=== PATIENT | male | born 1955 | race Caucasian/White ===

== ENCOUNTER 2019-11-15 05:50 | Day surgery (SDC) | payer MEDICARE, OTHER, SELFPAY ==
[2019-11-14 09:37] VITALS: BMI 25.0
--- NOTE | 2019-11-15 | SCC_ITS ---
Procedure Done: Placement of PowerPort in the left subclavian vein 36.3 seconds of fluoroscopic guidance, for a cumulative dose of 5.96 mGy, was provided to Dr. Altamirano by the radiology department. C-arm images of the chest were saved for the patient's permanent record. [facility]
--- NOTE | 2019-11-15 | SC_ITS ---
WS: [id number] OR Port-A-Cath insertion, 11/15/2019 Clinical Data: MINESH CATH Comparison: None. Fluoroscopy time: 36.3 seconds Findings: Left Port-A-Cath was inserted in the operating room. SC/C-arm FL for CVA [id number] Impression: Left Port-A-Cath insertion.
[2019-11-15 06:17] VITALS: BP 129/72; PULSE 73; RESP 18; TEMP 36.4
--- NOTE | 2019-11-15 06:44 | ANES.PREANES ---
Pre-Anesthetic Assessment Pre-Anesthetic Assessment: Height/Weight: Height 1.83 m Weight 83.915 kg Temp Pulse Resp BP 97.6 F 73 18 129/72 11/15/19 06:17 11/15/19 06:17 11/15/19 06:17 11/15/19 06:17 Proposed Procedure: Operation Date: 11/15/19 07:10 Proposed Procedures p Portacath Placement(Not Applicable) - Christiano Altamirano MD Last intake: Intake Last Liquid Date 11/14/19 Last Solid Date 11/14/19 Social: Social History: Tobacco Exam: Pre-Anes Outpt Exam: alert, oriented x 3, clear to auscultation bilaterally and regular rate & rhythm Airway: Submandibular: WNL Cervical ROM: WNL MP: 2 Anesthetic Plan: ASA status: III Anesthesia: Anesthesia Evaluation and MAC PFSH Anesthesia PFSH: Medical History (Updated 11/15/19 @ 06:46 by Rony Maya MD) Epigastric abdominal pain (Acute) Hyperlipidemia (Acute) Hypertension (Acute) Nocturia (Acute) Rectal carcinoma (Acute) Family History Father Diabetes Other Breast cancer Heart disease Parkinson disease Data Anesthesia Cardiac Studies: No Data to Display
--- NOTE | 2019-11-15 06:56 | ANES.PREANES ---
Pre-Anesthetic Assessment Pre-Anesthetic Assessment: Height/Weight: Height 1.83 m Weight 83.915 kg Temp Pulse Resp BP 97.6 F 73 18 129/72 11/15/19 06:17 11/15/19 06:17 11/15/19 06:17 11/15/19 06:17 Proposed Procedure: Operation Date: 11/15/19 07:10 Proposed Procedures p Portacath Placement(Not Applicable) - Christiano Altamirano MD Last intake: Intake Last Liquid Date 11/14/19 Last Solid Date 11/14/19 Social: Social History: Alcohol (occ) and Tobacco (occ cigar, previous chew, smoke quit 1 year ago) Exam: Pre-Anes Outpt Exam: alert, oriented x 3, clear to auscultation bilaterally and regular rate & rhythm Airway: Submandibular: WNL Cervical ROM: WNL MP: 1 Dentition: Other (ok) Pulmonary: Pulmonary: None reported CV/HEM: CV/HEM: HTN : : None reported Hepatic: Hepatic: None reported GI: GI: GERD (well controlled) Metabolic: Metabolic: None reported Musc/skel: Musc/skel: None reported Neuropsych: Neuropsych: None reported Anesthetic Plan: Anesthesia: MAC Risk of > 500 ml blood loss (7ml/kg in children): No PFSH Anesthesia PFSH: Medical History (Updated 11/15/19 @ 06:46 by Rony Maya MD) Epigastric abdominal pain (Acute) Hyperlipidemia (Acute) Hypertension (Acute) Nocturia (Acute) Rectal carcinoma (Acute) Family History Father Diabetes Other Breast cancer Heart disease Parkinson disease Data Anesthesia Cardiac Studies: No Data to Display
--- NOTE | 2019-11-15 07:16 | PM.HPUD ---
H&P update H&P Update: DATE OF SURGERY/PROCEDURE: 11/15/19 DATE H&P PERFORMED: 11/13/19 H&P UPDATE INFORMATION: H&P completed within last 30 days, No changes to prior documentation and H&P to be scanned into chart PREOP DIAGNOSIS: Rectal cancer PLANNED PROCEDURE: Operation Date: 11/15/19 07:10 Proposed Procedures p Portacath Placement(Not Applicable) - Christiano Altamirano MD Full H&P Perinent History: Medical/Surgical History: Medical History (Updated 11/15/19 @ 06:46 by Rony Maya MD) Epigastric abdominal pain (Acute) Hyperlipidemia (Acute) Hypertension (Acute) Nocturia (Acute) Rectal carcinoma (Acute) Family History: Family History (Updated 11/14/19 @ 09:53 by Kaila Edgar) Father Diabetes Other Breast cancer Heart disease Parkinson disease A&P Assessment and plan (1) Rectal cancer: Status: Acute Code(s): C20 - Malignant neoplasm of rectum
[2019-11-15] MEDS: ceFAZolin 1,000 MG in sodium chloride 0.9% (plus) 50 ML 100 MG IV (07:18)
[2019-11-15] MEDS: heparin,porcine 1,000 unit/mL INJ 1 mL 1000 UNIT INJECTION (07:45)
[2019-11-15] MEDS: heparin, porcine 1,000 unit/mL INJ 10 mL 10000 UNIT (07:46)
--- NOTE | 2019-11-15 07:55 | P.OP_ITS ---
Operative Report Post-Operative Note: Date of procedure: 11/15/19 Preop Diagnosis: rectal cancer Post-op diagnosis: same Procedure Done: Placement of PowerPort in the left subclavian vein Fluoroscopic guidance and interpretation for placement of catheter Pathology: none sent Surgeon: Christiano Altamirano Anesthesia: MAC Estimated blood loss (mL): 10 Condition: stable Disposition: PACU Operative Report: Procedure: The patient was taken to the Operating Room and the chest and neck bilaterally were prepped and draped in a sterile manner after the antibiotic had been administered and shoulder rolls had been placed. A total of 10 mL of 1% lidocaine with 0.5% Marcaine was infiltrated under the clavicle on the left side at the site of the planned entry into the subclavian vein. An introducer needle was then used to access the subclavian vein under the clavicle and after withdrawing blood syringe was removed and a guidewire passed under fluoroscopy into the superior vena cava. The site of the planned port was then marked on the chest and a 15 blade was used to make a 3 cm skin incision this was extended into the subcutaneous tissue using electrocautery and a subcutaneous pocket over the pectoralis fascia was created 2-0 Vicryl suture was used to suture the port to the pectoral fascia in the pocket on 3 sides. The catheter, after having been flushed with hep saline, was attached to the tunneler and a tunnel created between the port site and the subclavian vein entry site. Under fluoroscopy the dilator sheath was passed over the guidewire into the proximal superior vena cava. The inner dilator was removed and the sheath left behind and~ the catheter was introduced through the peel-away sheath with the tip in the superior vena cava. The peel-away sheath was removed. The proximal end of the catheter was cut to the right size and was attached to the port. Using a Hernandes needle the port was accessed, it withdrew blood easily and flushed easily. A final 5cc of heparin was used to flush the Mediport. The subcutaneous tissue was approximated using interrupted 3-0 Vicryl sutures and the skin at the introducer site and the port site was closed using subcuticular running 4-0 Monocryl sutures. Dermabond was applied and the patient was stable throughout the procedure. Fluoroscopic guidance and interpretation was performed for introduction of the guidewire in the right subclavian vein, passage of dilator and placement of catheter tip in the distal superior vena cava. Coding Level of Care Code Acute [employer] for Román Olmos
[2019-11-15] MEDS: lidocaine 1% INJ 20 mL INTRADERMA (08:13)
[2019-11-15 08:55] VITALS: BP 102/65; PULSE 70; RESP 18; TEMP 36.2; O2SAT 96
[2019-11-15] MEDS: sodium chloride 0.9% 1,000 ML 30 ML IV (08:57)
[2019-11-15 09:09] VITALS: BP 108/75; PULSE 66; RESP 18; O2SAT 96
== END 2019-11-15 09:06 | disposition home or self-care (01) ==
PROVIDERS: Family Provider Family Medicine; PCP Surgery; Visit Provider Surgery
PROC: (CPT 36561; principal; 2019-11-15 07:00)
DX: C20 Malignant neoplasm of rectum (principal); Z87.891 Personal history of nicotine dependence; I10 Essential (primary) hypertension; E78.5 Hyperlipidemia, unspecified; Z83.3 Family history of diabetes mellitus; Z82.49 Family history of ischemic heart disease and other diseases of the circulatory system; Z80.3 Family history of malignant neoplasm of breast
CPT/HCPCS: 36561; 77001; 99221; C1788; J0690; J1644; J2001; J3490; J7030

== ENCOUNTER 2019-11-21 08:34 | Outpatient (CLI) | payer MEDICARE, OTHER, SELFPAY ==
--- NOTE | 2019-11-21 | CT_ITS ---
ADDENDUM WS: [id number] Right peritoneal mass needle core biopsies: Adenocarcinoma consistent with patient's history of colonic primary. Notified Hollie Yates DRAWER IN at 11/27/2019 1000AM. Addendum Dictated By: Elieser Cruz MD WS: [id number] PERITONEAL BIOPSY CLINICAL INFORMATION: NEEDLE BIOPSY OF PERITONEAL MASS COMPARISON: Recent PET CT November 10, 2019 DLP: 718.15 mGy.cm TECHNIQUE: The procedure including risk, benefits, and complications were discussed with the patient who agreed to proceed. Using sterile technique, the patient was prepped and draped in the usual sterile fashion. Patient was positioned supine and CT images were obtained through the abdomen. The peripheral FDG avid peritoneal nodule in the right abdomen was selected. After 1% lidocaine using fluoroscopic guidance, a 19-gauge coaxial needle was advanced into the peritoneal mass. Approximately 40 cc of fluid was aspirated and sent for cytology. Next approximately 8 soft tissue core samples were obtained. No immediate complications. Dictated By: Elieser Cruz MD MTDD CT/CT biopsy abdomen percut 00062 IMPRESSION: 1. Multiple 18-gauge core samples were obtained of the right abdominal periton eal mass . No immediate complications. In addition fluid was aspirated and sent for cytology. 2. Patient was discharged 2 hours postprocedure in stable condition. ADDENDUM: 11/27/19 1116 PATHOLOGY:
--- NOTE | 2019-11-21 | CT_ITS ---
WS: [id number] PERITONEAL BIOPSY CLINICAL INFORMATION: NEEDLE BIOPSY OF PERITONEAL MASS COMPARISON: Recent PET CT November 10, 2019 DLP: 718.15 mGy.cm TECHNIQUE: The procedure including risk, benefits, and complications were discussed with the patient who agreed to proceed. Using sterile technique, the patient was prepped and draped in the usual steri le fashion. Patient was positioned supine and CT images were obtained through the abdomen. The periph eral FDG avid peritoneal nodule in the right abdomen was selected. After 1% lidocaine using fluorosc opic guidance, a 19-gauge coaxial needle was advanced into the peritoneal mass. Approximately 40 cc o f fluid was aspirated and sent for cytology. Next approximately 8 soft tissue core samples were obtai janett. No immediate complications.
[2019-11-21 10:30] VITALS: BMI 24.9
[2019-11-21 10:37] VITALS: BP 119/86; PULSE 78; RESP 18; TEMP 36.7; O2SAT 95
[2019-11-21] MEDS: fentaNYL 50 mcg/mL INJ 2mL 100 MCG ×2 (11:54→11:58)
[2019-11-21] MEDS: midazolam 1 mg/mL INJ 5 ML IVP ×2 (11:54→11:59)
--- NOTE | 2019-11-21 11:59 | SUR.OPER ---
90/62 P78 O2 97% ON 3 L RR 16
--- NOTE | 2019-11-21 12:07 | SUR.OPER ---
104/67 P 77 O2 98% ON 3L RR 18
--- NOTE | 2019-11-21 12:11 | SUR.OPER ---
111/80 P 79 O2 98% ON 3L RR 16
[2019-11-21 12:25] VITALS: BP 110/78; PULSE 80; RESP 16; TEMP 36.3; O2SAT 94
--- NOTE | 2019-11-21 12:40 | SUR.OPER ---
PT TOLERATED PROCEDURE WELL. 12:25 TRANSFERRED BACK TO GI LAB ROOM 5. FAMILY AT BEDSIDE.DRESSING IN PLACE.
[2019-11-21 13:04] VITALS: BP 110/78; PULSE 80; RESP 16; TEMP 36.4
[2019-11-21 13:53] VITALS: BP 109/83; PULSE 80; RESP 18; TEMP 36.5; O2SAT 96
[2019-11-21] MEDS: sodium chloride 0.9% 1,000 mL Bag 30 ML IV (14:37)
== END 2019-11-21 14:35 | disposition home or self-care (01) ==
PROVIDERS: Family Provider Family Medicine; PCP Family Medicine; Visit Provider Internal Medicine Medical Oncology
DX: C20 Malignant neoplasm of rectum (principal); C78.6 Secondary malignant neoplasm of retroperitoneum and peritoneum
CPT/HCPCS: 49180; 77012; 88173; 88305; 88341; 88342; 96374; 96375; J1642; J2001; J2250; J2310; J3010; J3490; J7030

== ENCOUNTER 2019-11-28 11:53 | Outpatient (CLI) | payer MEDICARE, OTHER, SELFPAY ==
[2019-11-28] MEDS: sodium chloride 0.9% 500 ML IV (13:26)
[2019-11-28 13:28] LABS: INR 1.15 (0.8-1.2)
[2019-11-28 13:32] LABS: Basophils % 0.5 %; Eosinophils % 0.5 %; Hematocrit 50.2 % (42.0-52.0); Hemoglobin 16.4 g/dL (11.7-16.6); Lymphocytes # 0.5 10^3/uL (0.8-4.8); Lymphocytes % 6.5 %; Mean Corpuscular HGB Conc 32.7 g/dL (30.0-36.0); Mean Corpuscular Hemoglobin 28.4 pg (28.0-34.0); Mean Corpuscular Volume 86.9 fL (80-94); Mean Platelet Volume 9.9 fL (7.4-10.4); Monocytes # 0.9 10^3/uL (0.2-0.9); Monocytes % 11.8 %; Neutrophils # 6.2 10^3/uL (1.8-7.7); Neutrophils % 80.2 %; Nucleated Red Blood Cells % 0 %; Platelet Count 394 10^3/cmm (130-400); Red Blood Count 5.78 10^6/uL (4.1-5.3); Red Cell Distribution Width 12.9 % (12.1-15.1); White Blood Count 7.7 10^3/uL (4.0-10.0)
[2019-11-28 13:38] LABS: Alanine Aminotransferase 26 U/L (0-41); Albumin Level 3.9 g/dL (3.5-5.2); Alkaline Phosphatase 159 IU/L (40-130); Anion Gap 19.1 (5-19); Aspartate Amino Transferase 27 U/L (0-40); Blood Urea Nitrogen 21 mg/dL (8-23); Calcium 9.6 mg/Dl (8.8-10.2); Carbon Dioxide 24 mmol/L (22-29); Chloride 98 mmol/L (98-107); Globulin 3.1 g/dL (1.3-4.6); Glucose 128 mg/dL (74-106); Potassium 4.1 mmol/L (3.5-5.1); Sodium 137 mmol/L (136-145); Total Bilirubin 1.2 mg/dL (0.15-1.2)
--- NOTE | 2019-11-29 19:10 | ONC FU_ITS ---
Dr. Edwards Patient Follow-Up Note Patient: Mick Fritz Unit #: [id number]: [id number] Dicatated By: Tiago Edwards M.D.Date of Visit:Nov 28, 2019 Onc Med Follow-up/Prog Note Chief Complaint: Rectal cancer. 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 In April 2019 he had been referred to Dr. Altamirano for excision of a skin lesion on his chest. He also was in need of screening colonoscopy. The skin lesion turned out to be a basal cell carcinoma. The colonoscopy showed a pedunculated polyp in the descending colon which was able to be removed endoscopically. Also noted was a malignant appearing mass involving two thirds of the circumference at the first rectal fold. 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 The rectal biopsy showed tubulovillous adenoma with focal high-grade dysplasia. As it was clearly a malignant appearing lesion, he then underwent sigmoidoscopy with a repeat biopsy on 05/15/2019. Pathology at that time was consistent with well to moderately differentiated adenocarcinoma. CT abdomen pelvis showed circumferential perirectal soft tissue thickening consistent with rectal neoplasm. Also noted was left perirectal lymphadenopathy and aortocaval lymphadenopathy consistent with metastatic disease with the largest aortocaval node measuring 2.0 cm and the left perirectal node measuring 2.2 cm. He was referred to Dr. Otto in [place] for further management, and he then undergo neoadjuvant chemoradiation utilizing capecitabine for chemosensitization. He apparently was lost to follow-up there after completing the radiation. He was admitted to [facility] on 10/29/2019 after presenting to the emergency room with abdominal pain and swelling. His CT abdomen/pelvis showed evidence of abundant ascites and omental carcinomatosis. There was abnormal wall thickening and enhancement of the loops of small bowel, possibly reflecting enteritis, but concerning for neoplastic infiltration of the wall of the loops of bowel. An apple core type lesion with marked wall thickening and narrowing was noted in the distal sigmoid colon/rectum. A new ill-defined 2 cm nodule in the dome of the liver was new and suspicious for metastatic disease. On 10/30/2019 he underwent paracentesis with removal of 2000 mL of fluid. The cytology was negative. I had seen him initially on 11/02/2019. At that point he was still in pretty good performance status. Biopsy was recommended to confirm the histology of his disease, particularly with the pattern of metastatic involvement and the fact that his CEA level was normal. As the liver lesion was not accessible for needle biopsy, he underwent CT directed needle biopsy of a peritoneal mass on 11/21/2019. Pathology has just become available, and it does show metastatic adenocarcinoma, CDX 2 positive, consistent with colonic primary. In the meantime, a next generation sequencing study had been requested on his primary tumor. That study has also just now become available, and it does show the tumor to be MSI stable and KRAS wild type. His other medical illnesses include hypertension and GERD. He has a remote history of smoking a pack of cigarettes daily for about 10 years. He had quit smoking cigarettes sometime in his early 20s, but he has continued smoking a cigar about 3 times a week. He is seen for a follow-up visit. His condition has declined significantly since his initial visit here. He says he feels terrible. He complains that he has no energy now. His activity is very limited. ECOG score is 3. His appetite is very poor. He essentially is eating nothing. He has not had fever. He reports having a lot of sweating. His breathing is a little shallow. He is not having chest pain. He is having abdominal pain and swelling, severe enough that he is not sleeping at night. He has had nausea, and he says he is having very little bowel movements. His urine has an orange discoloration. He has no significant joint or bone pain. He has occasional numbness/tingling. Medications: amLODIPine Besylate 1 (10 mg) Tablet Oral daily, fentaNYL 1 Patch(es) (of 25 mcg/hr) Patch 72 Hr Transdermal q 72 hours, HYDROcodone-Acetaminophen 1 (10-325 mg) Tablet Oral q 4 hours PRN, Omeprazole 1 (20 mg) Capsule Delayed Release Oral daily, Senna S 1 - 2 (8.6-50 mg) Tablet Oral PRN Allergies: No Known Allergies. Review of Systems: Constitutional - He has no energy, and his activity now is very limited. His appetite is very poor. He has lost weight. No fever. He complains that he sweats a lot. ECOG score is 3, ENMT - He has a runny nose. No mouth sores. No sore throat or difficulty swallowing, Hematologic/Lymphatic - No abnormal bruising or bleeding, Respiratory - His breathing is a little shallow. No cough. No pleuritic pain or hemoptysis, Cardiovascular - No angina pain. No palpitations, Gastrointestinal - He is having abdominal pain and swelling. He has nausea. He has heartburn, managed with omeprazole. He is having very little bowel movement. No blood in the stool or black stools, Genitourinary (M) - His urines has been orangeish coloration. No dysuria or hematuria. He has urinary frequency at night. No urgency or incontinence, Musculoskeletal - He is currently not having any significant joint or bone pain, Integumentary - He had a skin cancer removed in April, Neurologic - No headache or dizziness. He occasionally has numbness/tingling, Psychiatric - No anxiety or depression. He is not sleeping well due to the pain. Vital Signs: Performed on Nov 28, 2019 12:06 Height - 70.00 in Weight - 187.4 lbs (LOW) BSA - 2.03 sq.m BMI - 26.89 Temperature - 98.0 F (LOW) Pulse - 118 /min (HIGH) Respiration - 22 /min BP - 122/98 mm(hg) O2 Sat - 96 % Pain - 10 Physical Examination: Constitutional - He appears very weak generally, Eyes - Sclerae nonicteric. Conjunctivae clear, ENMT - No lesions noted in the oral cavity, Hematologic/Lymphatic - No cervical, clavicular, or axillary adenopathy, Respiratory - Lungs are clear with good air movement bilaterally, Cardiovascular - Heart rhythm is regular with a mild tachycardia. There is no murmur, gallop, or rub noted, Abdomen - Distended with ascites. Liver and spleen are not enlarged. There is no abdominal mass noted and there is no inguinal adenopathy, Extremities - No edema, Neurologic - No focal neurologic deficits noted. Lab/Imaging: Test performed on Nov 28, 2019 12:54 Glucose 128 mg/dL BUN 21 mg/dL Creatinine 1.1 mg/dL Cr Clearance (Est) 79.42 mL/min Sodium 137 mmol/L Potassium 4.1 mmol/L Chloride 98 mmol/L CO2 24 mmol/L Calcium 9.6 mg/dL Protein, Total 7.0 g/dL Albumin 3.9 g/dL Bilirubin, Total 1.2 mg/dL Alkaline Phosphatase 159 IU/L AST (SGOT) 27 IU/L ALT (SGPT) 26 IU/L PT 15.10 sec WBC 7.7 10^9/L INR 1.15 RBC 5.78 10^12/L HGB 16.4 g/dL HCT 50.2 % MCV 86.9 fl MCH 28.4 pg MCHC 32.7 g/dL RDW 12.9 % Platelet Count 394 10^9/L MPV 9.9 fL Neutrophils (Gran) 6.2 10^9/L Lymphocytes 0.5 10^9/L Monocytes 0.9 10^9/L Eosinophils 0.0 10^9/L Basophils 0.0 10^9/L Manual Lymphocytes 6.5 % Manual Monocytes 11.8 % Manual Eosinophils 0.5 % Manual Basophils 0.5 % NRBCs 0.0 /100 WBC Test performed on Nov 02, 2019 11:50 Anion Gap 16.3 eGFR 96.7 mL/min Globulin 2.0 gm/dL Neutrophil % 81.6 % Lymphocyte % 8.0 % Monocyte % 7.4 % Eosinophil % 2.0 % Basophils % 0.5 % CEA 0.9 ng/mL Impression: 1. Patient with well to moderately differentiated adenocarcinoma of the rectum, by clinical evaluation stage IVC (T3, N2, M1c) with CT evidence of a metastatic lesion in the liver and with biopsy proven metastatic involvement in the peritoneum. He has associated ascites. 2. A next generation sequencing study showed his primary tumor to be MSI stable. A KRAS mutation was not detected. 3. He underwent chemoradiation utilizing capecitabine for chemosensitization following initial diagnosis of the rectal cancer in May 2019. His other medical illnesses include: 4. Hypertension. 5. GERD. Plan: He will now begin palliative chemotherapy with a modified FOLFOX regimen in combination with panitumumab. I reviewed anticipated side effects with the chemotherapy, which may include nausea/vomiting, fatigue, alopecia, low blood counts, and neuropathy, among others. He is cautioned about the expected skin rash with panitumumab. Due to his significant abdominal symptoms, he will be scheduled for therapeutic paracentesis tomorrow, and he will then return to begin his first cycle of chemotherapy. He unfortunately has had significant decline in his performance status, which does increase the risk of chemotherapy related side effects. As such, he will be given a dexamethasone taper and he will come in for scheduled hydration. He also will be started on a fentanyl patch at 25 mcg/h and he will be given a prescription for immediate release oxycodone to take as needed for pain. Signed By: Tiago Edwards M.D. <<Signature on File>>
== END 2019-11-28 11:54 | disposition home or self-care (01) ==
LOC: ONCMED 11:56
PROVIDERS: Family Provider Family Medicine; PCP Family Medicine; Visit Provider Internal Medicine Medical Oncology
DX: C20 Malignant neoplasm of rectum (principal); C78.6 Secondary malignant neoplasm of retroperitoneum and peritoneum; E86.0 Dehydration; R18.8 Other ascites; G89.3 Neoplasm related pain (acute) (chronic); I10 Essential (primary) hypertension; K21.9 Gastro-esophageal reflux disease without esophagitis; F17.210 Nicotine dependence, cigarettes, uncomplicated; Z79.899 Other long term (current) drug therapy; Z85.828 Personal history of other malignant neoplasm of skin; Z92.3 Personal history of irradiation
CPT/HCPCS: 80053; 85025; 85610; 96361; 96365; 96367; 99214; J1100; J2405; J7040

== ENCOUNTER 2019-12-14 05:45 | Outpatient (RCR) | payer MEDICARE, OTHER, SELFPAY ==
--- NOTE | 2019-11-29 11:30 | US_ITS ---
WS: [id number] Ultrasound-guided paracentesis, 11/29/2019. Clinical Data: ASCITES Comparison: Ultrasound-guided paracentesis, 10/30/2019. Findings: With the usual technique 5 mL of 1% lidocaine were used to infiltrate the skin of the left lower quad rant. A small incision was made. A 5 Malay Yueh catheter was inserted and 4500 mL of straw-colored p eritoneal fluid were aspirated. There were no complications. US/US paracentesis abd w [id number] Impression: Paracentesis obtained 4500 mL of peritoneal fluid.
[2019-11-29 11:33] VITALS: BP 120/95; PULSE 78; RESP 18; TEMP 36.1; O2SAT 95
[2019-11-29 11:38] VITALS: BMI 22.1
[2019-11-29] MEDS: dextrose 5% 250 ML 75 ML (13:36)
[2019-11-30] MEDS: sodium chloride 0.9% 500 ML 999 ML IV (09:17)
[2019-11-30] MEDS: acetaminophen 325 mg Tablet 650 MG PO (10:29)
[2019-12-03 09:49] LABS: Basophils % 0.5 %; Eosinophils % 1.1 %; Hematocrit 48.1 % (42.0-52.0); Lymphocytes # 0.4 10^3/uL (0.8-4.8); Lymphocytes % 18.4 %; Mean Corpuscular HGB Conc 33.3 g/dL (30.0-36.0); Mean Corpuscular Volume 87.1 fL (80-94); Mean Platelet Volume 9.8 fL (7.4-10.4); Monocytes # 0.3 10^3/uL (0.2-0.9); Monocytes % 15.8 %; Neutrophils # 1.2 10^3/uL (1.8-7.7); Neutrophils % 63.7 %; Nucleated Red Blood Cells % 0 %; Platelet Count 300 10^3/cmm (130-400); Red Blood Count 5.52 10^6/uL (4.1-5.3); Red Cell Distribution Width 12.9 % (12.1-15.1); White Blood Count 1.9 10^3/uL (4.0-10.0)
[2019-12-03] MEDS: sodium chloride 0.9% 1,000 ML 999 ML IV (10:01)
[2019-12-03 10:07] LABS: Alanine Aminotransferase 80 U/L (0-41); Albumin Level 3.4 g/dL (3.5-5.2); Alkaline Phosphatase 138 IU/L (40-130); Anion Gap 16.6 (5-19); Aspartate Amino Transferase 49 U/L (0-40); Blood Urea Nitrogen 18 mg/dL (8-23); Calcium 8.9 mg/Dl (8.8-10.2); Carbon Dioxide 26 mmol/L (22-29); Chloride 95 mmol/L (98-107); Glomerular Filtration Rate 112.8 mL/min (90-130); Glucose 143 mg/dL (74-106); Potassium 3.6 mmol/L (3.5-5.1); Sodium 134 mmol/L (136-145); Total Bilirubin 1.8 mg/dL (0.15-1.2); Total Protein 6.4 g/dL (6.6-8.7)
[2019-12-03 11:08] LABS: Slide Review Slide Review Perform
[2019-12-04] MEDS: sodium chloride 0.9% 1,000 ML 999 ML IV (09:32)
[2019-12-05] MEDS: sodium chloride 0.9% 1,000 ML 999 ML IV (17:00)
[2019-12-06] MEDS: sodium chloride 0.9% 1,000 ML 999 ML IV (09:47)
[2019-12-06 09:58] LABS: Basophils # 0.2 10^3/uL (0.0-0.1); Basophils % 0.5 %; Hematocrit 40.5 % (42.0-52.0); Hemoglobin 13.5 g/dL (11.7-16.6); Lymphocytes # 0.8 10^3/uL (0.8-4.8); Lymphocytes % 2.4 %; Mean Corpuscular HGB Conc 33.3 g/dL (30.0-36.0); Mean Corpuscular Hemoglobin 28.3 pg (28.0-34.0); Mean Corpuscular Volume 84.9 fL (80-94); Mean Platelet Volume 9.9 fL (7.4-10.4); Monocytes # 1.8 10^3/uL (0.2-0.9); Monocytes % 5.5 %; Neutrophils # 29.1 10^3/uL (1.8-7.7); Nucleated Red Blood Cells % 0 %; Platelet Count 258 10^3/cmm (130-400); Red Blood Count 4.77 10^6/uL (4.1-5.3); Red Cell Distribution Width 12.7 % (12.1-15.1)
[2019-12-06 10:20] LABS: Slide Review Slide Review Perform; White Blood Count 33.4 10^3/uL (4.0-10.0)
[2019-12-06 10:21] LABS: Lymphocytes 1 %; Monocytes Absolute 1.7 10^3/cmm (0.1-0.6); Segmented Neutrophils 51 %; Total Cells Counted 100 (0-100)
[2019-12-06 10:22] LABS: Platelet Estimate Normal (Normal)
[2019-12-10] MEDS: sodium chloride 0.9% 1,000 ML 999 ML IV (09:37)
[2019-12-10 09:58] LABS: Basophils # 0.1 10^3/uL (0.0-0.1); Basophils % 0.9 %; Eosinophils # 0.1 10^3/uL (0.0-0.8); Eosinophils % 1.3 %; Hematocrit 42.7 % (42.0-52.0); Hemoglobin 14.3 g/dL (11.7-16.6); Lymphocytes # 0.6 10^3/uL (0.8-4.8); Lymphocytes % 6.2 %; Mean Corpuscular HGB Conc 33.5 g/dL (30.0-36.0); Mean Corpuscular Hemoglobin 28.2 pg (28.0-34.0); Mean Corpuscular Volume 84.2 fL (80-94); Mean Platelet Volume 10.3 fL (7.4-10.4); Monocytes # 1.4 10^3/uL (0.2-0.9); Monocytes % 15.7 %; Neutrophils # 5.7 10^3/uL (1.8-7.7); Neutrophils % 62.3 %; Nucleated Red Blood Cells % 0 %; Platelet Count 138 10^3/cmm (130-400); Red Blood Count 5.07 10^6/uL (4.1-5.3); White Blood Count 9.2 10^3/uL (4.0-10.0)
[2019-12-10 10:15] LABS: Alanine Aminotransferase 54 U/L (0-41); Albumin Level 3.6 g/dL (3.5-5.2); Alkaline Phosphatase 138 IU/L (40-130); Anion Gap 13.6 (5-19); Aspartate Amino Transferase 28 U/L (0-40); Blood Urea Nitrogen 11 mg/dL (8-23); Calcium 8.5 mg/dL (8.5-10.5); Carbon Dioxide 25 mmol/L (22-29); Chloride 97 mmol/L (98-107); Globulin 2.4 g/dL (1.3-4.6); Glomerular Filtration Rate 96.7 mL/min (90-130); Glucose 107 mg/dL (74-106); Potassium 3.6 mmol/L (3.5-5.1); Sodium 132 mmol/L (136-145); Total Bilirubin 1.6 mg/dL (0.15-1.2)
[2019-12-10 10:37] LABS: Slide Review Slide Review Perform
[2019-12-12] MEDS: acetaminophen 325 mg Tablet 650 MG PO (09:11)
[2019-12-12] MEDS: dextrose 5% 250 ML 75 ML IV (09:31)
[2019-12-14] MEDS: sodium chloride 0.9% 1,000 ML 999 ML IV (09:55)
== END 2019-12-14 23:59 | disposition home or self-care (01) ==
LOC: ONCMED 05:45
PROVIDERS: Family Provider Family Medicine; PCP Family Medicine; Visit Provider Internal Medicine Medical Oncology
DX: Z51.11 Encounter for antineoplastic chemotherapy (principal); C20 Malignant neoplasm of rectum; C78.6 Secondary malignant neoplasm of retroperitoneum and peritoneum; D70.1 Agranulocytosis secondary to cancer chemotherapy; T45.1X5A Adverse effect of antineoplastic and immunosuppressive drugs, initial encounter; R18.8 Other ascites; R11.0 Nausea; E86.0 Dehydration
CPT/HCPCS: 49083; 80053; 85007; 85025; 96360; 96361; 96365; 96367; 96368; 96372; 96375; 96413; 96415; 96416; 96417; J0640; J1100; J1200; J1442; J2405; J2469; J2505; J3490; J7030; J7040; J7050; J9263; J9303

== ENCOUNTER 2020-01-11 05:41 | Outpatient (RCR) | payer MEDICARE, OTHER, SELFPAY ==
[2019-12-19 14:03] LABS: Basophils # 0.1 10^3/uL (0.0-0.1); Basophils % 0.4 %; Eosinophils # 0.2 10^3/uL (0.0-0.8); Eosinophils % 1.6 %; Hematocrit 45.9 % (42.0-52.0); Hemoglobin 15.2 g/dL (11.7-16.6); Lymphocytes # 0.8 10^3/uL (0.8-4.8); Lymphocytes % 6.6 %; Mean Corpuscular HGB Conc 33.1 g/dL (30.0-36.0); Mean Corpuscular Hemoglobin 27.7 pg (28.0-34.0); Mean Corpuscular Volume 83.6 fL (80-94); Monocytes # 0.9 10^3/uL (0.2-0.9); Monocytes % 7.4 %; Neutrophils # 10.3 10^3/uL (1.8-7.7); Neutrophils % 80.4 %; Nucleated Red Blood Cells % 0 %; Platelet Count 256 10^3/cmm (130-400); Red Blood Count 5.49 10^6/uL (4.1-5.3); Red Cell Distribution Width 14.2 % (12.1-15.1); White Blood Count 12.7 10^3/uL (4.0-10.0)
[2019-12-19 15:16] LABS: Alanine Aminotransferase 35 U/L (0-41); Albumin Level 3.5 g/dL (3.5-5.2); Alkaline Phosphatase 165 IU/L (40-130); Anion Gap 17.6 (5-19); Aspartate Amino Transferase 21 U/L (0-40); Blood Urea Nitrogen 17 mg/dL (8-23); Carbon Dioxide 23 mmol/L (22-29); Chloride 97 mmol/L (98-107); Globulin 2.9 g/dL (1.3-4.6); Glomerular Filtration Rate 112.8 mL/min (90-130); Glucose 101 mg/dL (65-115); Potassium 3.6 mmol/L (3.5-5.1); Sodium 134 mmol/L (136-145); Total Bilirubin 0.6 mg/dL (0.15-1.2); Total Protein 6.4 g/dL (6.6-8.7)
[2019-12-25 09:49] LABS: Basophils # 0.1 10^3/uL (0.0-0.1); Basophils % 0.5 %; Eosinophils # 0.2 10^3/uL (0.0-0.8); Eosinophils % 2.2 %; Hematocrit 46.6 % (42.0-52.0); Hemoglobin 15.1 g/dL (11.7-16.6); Lymphocytes # 0.8 10^3/uL (0.8-4.8); Lymphocytes % 7.1 %; Mean Corpuscular HGB Conc 32.4 g/dL (30.0-36.0); Mean Corpuscular Hemoglobin 28.6 pg (28.0-34.0); Mean Corpuscular Volume 88.3 fL (80-94); Mean Platelet Volume 9.9 fL (7.4-10.4); Monocytes # 0.8 10^3/uL (0.2-0.9); Monocytes % 7.3 %; Neutrophils # 8.6 10^3/uL (1.8-7.7); Neutrophils % 77.2 %; Nucleated Red Blood Cells % 0 %; Platelet Count 160 10^3/cmm (130-400); Red Blood Count 5.28 10^6/uL (4.1-5.3); Red Cell Distribution Width 15.9 % (12.1-15.1); White Blood Count 11.1 10^3/uL (4.0-10.0)
[2019-12-25 10:03] LABS: Alanine Aminotransferase 37 U/L (0-41); Albumin Level 3.5 g/dL (3.5-5.2); Alkaline Phosphatase 138 IU/L (40-130); Anion Gap 17.3 (5-19); Aspartate Amino Transferase 25 U/L (0-40); Blood Urea Nitrogen 12 mg/dL (8-23); Calcium 9.1 mg/dL (8.5-10.5); Carbon Dioxide 28 mmol/L (22-29); Chloride 100 mmol/L (98-107); Globulin 2.9 g/dL (1.3-4.6); Glomerular Filtration Rate 134.8 mL/min (90-130); Glucose 123 mg/dL (65-115); Potassium 3.3 mmol/L (3.5-5.1); Sodium 142 mmol/L (136-145); Total Bilirubin 0.5 mg/dL (0.15-1.2); Total Protein 6.4 g/dL (6.6-8.7)
[2019-12-25 10:41] LABS: Slide Review Slide Review Perform
[2019-12-25 10:43] LABS: Absolute Eosinophils 0.4 10^3/cmm (0.0-0.7); Absolute Segmented Neutrophil 4.8 10/cmm (1.6-7.1); Band Neutrophils Absolute 3.8 10^3/cmm (0.0-1.2); Eosinophils 4 %; Lymphocytes 5 %; Monocytes Absolute 0.7 10^3/cmm (0.1-0.6); Platelet Estimate Normal (Normal); Segmented Neutrophils 44 %; Total Cells Counted 100 (0-100)
[2019-12-26] MEDS: dextrose 5% 250 ML 75 ML (10:15)
--- NOTE | 2019-12-26 11:28 | ONC FU_ITS ---
[facility] Patient Note Patient: Mick Fritz Unit #: [id number]: 1955 Dictated By: Jose R YeungDate of Visit: Dec 26, 2019 Onc MED Follow-Up/Prog Note Chief Complaint: Rectal cancer. 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 In April 2019 he had been referred to Dr. Altamirano for excision of a skin lesion on his chest. He also was in need of screening colonoscopy. The skin lesion turned out to be a basal cell carcinoma. The colonoscopy showed a pedunculated polyp in the descending colon which was able to be removed endoscopically. Also noted was a malignant appearing mass involving two thirds of the circumference at the first rectal fold. 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 The rectal biopsy showed tubulovillous adenoma with focal high-grade dysplasia. As it was clearly a malignant appearing lesion, he then underwent sigmoidoscopy with a repeat biopsy on 05/15/2019. Pathology at that time was consistent with well to moderately differentiated adenocarcinoma. CT abdomen pelvis showed circumferential perirectal soft tissue thickening consistent with rectal neoplasm. Also noted was left perirectal lymphadenopathy and aortocaval lymphadenopathy consistent with metastatic disease with the largest aortocaval node measuring 2.0 cm and the left perirectal node measuring 2.2 cm. He was referred to Dr. Otto in [place] for further management, and he then underwent neoadjuvant chemoradiation utilizing capecitabine for chemosensitization. He apparently was lost to follow-up there after completing the radiation. He was admitted to [facility] on 10/29/2019 after presenting to the emergency room with abdominal pain and swelling. His CT abdomen/pelvis showed evidence of abundant ascites and omental carcinomatosis. There was abnormal wall thickening and enhancement of the loops of small bowel, possibly reflecting enteritis, but concerning for neoplastic infiltration of the wall of the loops of bowel. An apple core type lesion with marked wall thickening and narrowing was noted in the distal sigmoid colon/rectum. A new ill-defined 2 cm nodule in the dome of the liver was new and suspicious for metastatic disease. On 10/30/2019 he underwent paracentesis with removal of 2000 mL of fluid. The cytology was negative. Dr Edwards had seen him initially on 11/02/2019. At that point he was still in pretty good performance status. Biopsy was recommended to confirm the histology of his disease, particularly with the pattern of metastatic involvement and the fact that his CEA level was normal. As the liver lesion was not accessible for needle biopsy, he underwent CT directed needle biopsy of a peritoneal mass on 11/21/2019. Pathology has just become available, and it does show metastatic adenocarcinoma, CDX 2 positive, consistent with colonic primary. In the meantime, a next generation sequencing study had been requested on his primary tumor. That study has also just now become available, and it does show the tumor to be MSI stable and KRAS wild type. His other medical illnesses include hypertension and GERD. He has a remote history of smoking a pack of cigarettes daily for about 10 years. He had quit smoking cigarettes sometime in his early 20s, but he has continued smoking a cigar about 3 times a week. Mr Fritz was offered palliative chemotherapy with FOLFOX/Vectibix. He began cycle 1 on 11/29/2019. He has had chemo induced neutropenia as well as chemo induced diarrhea with his first 2 cycles. He is required growth factor support which is tolerated relatively well. That has corrected his neutropenia. He states he is how to use the Imodium and states he thinks the diarrhea is much better. He had significant nausea with cycle 1 but states with cycle 2 that was not the case his nausea was much better controlled. Mr. Fritz is here today for follow-up. He is due for cycle 3 FOLFOX/vectibix. He states overall he is feeling much better. His performance status has improved he states he is getting out and doing activities around the house some. He is eating much better. He states his pain is much better as well. He is actually been able to wean off the fentanyl patch and that he has not had a patch placed for 5 to 6 days and states he has not had any pain today. He states occasionally when he lays down at night he does have some back pain but that was worsened with the Neulasta. It did not require any pain medication but he states he did take oxycodone last night to help with some discomfort and help him sleep. He had significant diarrhea again with cycle 2 but states now he is on how to take the Imodium and does not think it will be such a problem this next cycle. He states he had about 8 days of diarrhea but was able to help slow it down with the Imodium. He only had 1 day of hydration and that was when his pump was removed. He is eating good and drinking good to. He denies any mouth sores. He said no skin changes. He denies any new shortness of breath orthopnea. He has had no chest pain or palpitations. He states his urinary patterns are normal for him. His diarrhea resolved about 3 days ago and his stools are formed now. He has had slight cold-induced neuropathy but states is not affecting any of his ADLs. He is fully functional. He states he has had some sore throat but does not feel like a cold . We discussed that this could be related to the oxalic kaw. He has had no difficulty swallowing. He denies any fever or chills. His ECOG is 1. Past Medical History: Gastroesophageal reflux disease Hypertension Rectal cancer Past Surgical History: Liver biopsy Tonsillectomy Left side porthacatheter placement dr. altamirano in 2019 Sigmoidoscopy with biopsy of rectal mass in 2019 Colonoscopy in 2019 Excision of basal cell skin cancer in 2019 Allergies: No Known Allergies. Medications: amLODIPine Besylate 1 (10 mg) Tablet Oral daily fentaNYL 1 Patch(es) (of 25 mcg/hr) Patch 72 Hr Transdermal q 72 hours HYDROcodone-Acetaminophen 1 (10-325 mg) Tablet Oral q 4 hours PRN Omeprazole 1 (20 mg) Capsule Delayed Release Oral daily Senna S 1 - 2 (8.6-50 mg) Tablet Oral PRN Family History: Mr. Fritz's mother is alive. Mr. Fritz's father at age 92: heart disease, and type II diabetes. Mr. Fritz has 1 brother who is alive. He has 1 sister who is alive. Mother still living at age 89. Father with heart disease at age 92. He also had diabetes. A maternal aunt had breast cancer. His maternal grandfather had lung cancer. 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 Mr. Fritz quit smoking 46 years ago but had smoked 1.0 pack/day for 12 years. He drinks occasionally. He consumes 2 drinks/day 3 days/week. He has indicated exposure to the following products: cigars. Mr. Fritz reports the following support systems: lives with spouse, significant other, family, or friends and adequate transportation available for expected visits. His diet consists of regular meals. He indicates his activity level as: light exercise. 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 He has a history of smoking 1 pack of cigarettes daily for 10 years, but he had quit by sometime in his early 20s. He smokes a cigar about 3 times a week. Alcohol use averages 2 beers 3 days a week. Review Of Symptoms: Constitutional Denies fevers, chills, night sweats, excessive fatigue or weight loss. Allergic/Immunologic No reactions. Eyes Denies significant visual changes. No diplopia. No amaurosis. ENMT Denies changes in hearing, sore throat, mouth sores, difficulty or changes in swallowing ability, and/or sinus drainage. Hematologic/Lymphatic Denies easy bruising or bleeding. The patient denies any tender or palpable lymph nodes. Respiratory Denies dyspnea on exertion, chest pain, cough or hemoptysis. Denies orthopnea. Cardiovascular Denies anginal chest pain, palpitations or orthopnea. Gastrointestinal Denies current nausea, vomiting, diarrhea, GI bleeding, or constipation. Denies change in bowel habits and/or stool color, no heartburn or early satiety. Diarrhea stopped 3 days ago. Nausea much better this last treatment. Genitourinary (M) Denies hematuria, dysuria, increased frequency, urgency, hesitancy or incontinence. Musculoskeletal Denies joint pain, swelling or redness. No decreased range of motion. Integumentary Denies chronic rashes, inflammation, ulcerations or skin changes. Neurologic Denies headache, blurred vision, and no areas of focal weakness or numbness. Normal gait. No sensory problems. Psychiatric Denies insomnia, depression, jeanette or mood swings. Vital Signs: Performed on Dec 26, 2019 09:02 Height - 70.00 in Weight - 161.8 lbs (LOW) BSA - 1.91 sq.m BMI - 23.22 Temperature - 97.7 F (LOW) Pulse - 81 /min Respiration - 16 /min BP - 103/74 mm(hg) O2 Sat - 97 % Pain - 0 Fatigue - 5,1 - No physically strenuous activity, but ambulatory and able to carry out light or sedentary work (e.g. office work, light house work). (ECOG) Physical Examination: Constitutional Alert, oriented, no acute distress. Skin pink, warm and dry. Head Normocephalic; atraumatic. Eyes Conjunctivae and sclerae are clear and without icterus. Pupils are reactive and equal. ENMT No oral exudates, ulcers, masses, thrush or mucositis. Oropharynx clear. Tongue normal. Neck Supple without masses or thyromegaly. No jugular venous distension. Hematologic/Lymphatic No petechiae or purpura. No tender or palpable lymph nodes in the cervical or supraclavicular areas. Respiratory Lungs are clear to auscultation without rhonchi or wheezing. Cardiovascular Regular rate and rhythm of heart without murmurs,clicks, gallops or rubs. Abdomen Non-tender, non-distended, no masses or ascites. Good bowel sounds noted in all quads. No guarding or rebound tenderness. No pulsatile masses. Back/Spine Non-tender to palpation. Extremities No visible deformities, no cyanosis, clubbing or edema. Musculoskeletal No tenderness or swelling, normal range of motion without obvious weakness. Integumentary No rashes or lesions. A healing wound on the right wrist area is noted. He states he burned it while cooking. Neurologic No sensory or motor deficits, normal cerebellar function, normal gait. Psychiatric Alert and oriented times three. Coherent speech. Verbalizes understanding of our discussions today. Laboratory:Test performed on Dec 25, 2019 09:21 Sodium 142 mmol/L Potassium 3.3 mmol/L Chloride 100 mmol/L CO2 28 mmol/L Anion Gap 17.3 BUN 12 mg/dL Creatinine 0.6 mg/dL Cr Clearance (Est) 128.9800 mL/min eGFR 134.8 mL/min Glucose 123 mg/dL Calcium 9.1 mg/dL Protein, Total 6.4 g/dL Albumin 3.5 g/dL Globulin 2.9 g/dL Bilirubin, Total 0.5 mg/dL ALT (SGPT) 37 U/L AST (SGOT) 25 U/L Alkaline Phosphatase 138 IU/L WBC 11.1 10 3/uL Manual Bands % 34.0 % RBC 5.28 10 6/uL HGB 15.1 g/dL Manual Lymphs % 5 % HCT 46.6 % Manual Monos % 6.0 % MCV 88.3 fL MCH 28.6 pg MCHC 32.4 g/dL Metamyelocytes % 6.0 % RDW 15.9 % Myelocytes % 1.0 % Platelet Count 160 10 3/cmm MPV 9.9 fL Neutrophils 8.6 10 3/uL Lymphocytes 0.8 10 3/uL Monocytes 0.8 10 3/uL Eosinophils 0.2 10 3/uL Basophils 0.1 10 3/uL Neutrophil % 77.2 % Lymphocyte % 7.1 % Monocyte % 7.3 % Eosinophil % 2.2 % Basophils % 0.5 % CBC Slide Review Slide Review Perform Manual Bands Abs 3.8 10 3/cmm Manual Monocytes Abs 0.7 10 3/cmm Manual Eosinophils Abs 0.4 10 3/cmm Test performed on Nov 02, 2019 11:50 CEA 0.9 ng/mL Impression: 1. Patient with well to moderately differentiated adenocarcinoma of the rectum, by clinical evaluation stage IVC (T3, N2, M1c) with CT evidence of a metastatic lesion in the liver and with biopsy proven metastatic involvement in the peritoneum. He has associated ascites. 2. A next generation sequencing study showed his primary tumor to be MSI stable. A KRAS mutation was not detected. 3. He underwent chemoradiation utilizing capecitabine for chemosensitization following initial diagnosis of the rectal cancer in May 2019. His other medical illnesses include: 4. Hypertension. 5. GERD. Mr Fritz began palliative chemotherapy with FOLFOX/Vectibix on 11/29/2019. He had significant nausea and diarrhea with cycle 1. Cycle 2 was much better in regards to the nausea, but he had persistent diarrhea for up to 8 days. He states he thinks he has the Imodium figured out on how to take it and when to start it. Clinically he is improving in his appetite and performance status. He did have significant neutropenia with cycle 1 day ANC on day 8 of 1200. He required growth factor support and is now receiving prophylactic Neulasta. Plan: 1. Proceed with cycle 3 FOLFOX and vectibix. His dosing will remain the same. 2. We will continue with Neulasta support. We have informed him about Claritin for bone pain. He did have some occasional back pain with the Neulasta but he states it was not severe. 3. We reviewed usage of his Imodium [id number] and I have stated that we send him a prescription for Lomotil [facility] and [place]. He may add Lomotil to the Imodium if needed. 4. Labs from December 25, 2019 were reviewed in detail and discussed with Mr. Fritz and a copy was given to him. WBC 11.1, hemoglobin 15.1 platelets 160,000 ANC was 8600. Creatinine 0.6 LFTs are normal. Potassium 3.3 and magnesium was 2.0. 5. He is not taking any potassium supplements but this is most likely related to his diarrhea that only stopped about 3 days ago. He states he will increase potassium in his diet and try corrected it that way. He denies any leg cramps or palpitations. 6. He is attempting to wean his Duragesic. He states is been 5 to 6 days since he is actually changed his patch. He states his pain is much better. He does take oxycodone occasionally throughout the day. He states he thinks he took just 1 last night at bedtime and that is all he had yesterday. He states overall his pain is much better. 7. We will have him return in 2 weeks with CBC CMP and CEA. I have asked for interim CBC CMP as well. His CEA from October 2019 was normal. 8. Mr. Fritz was instructed to contact us in the interim should questions or problems arise. Signed By: Jose R Yeung-, AOP Tiago Edwards MD <<Signature on File>>
[2019-12-26] MEDS: acetaminophen 325 mg Tablet 650 MG PO (13:45)
[2019-12-26] MEDS: sodium chloride 0.9% 100 ML 400 ML (14:38)
[2019-12-28] MEDS: sodium chloride 0.9% 1,000 ML 999 ML IV (10:37)
[2020-01-01 11:19] LABS: Basophils # 0.2 10^3/uL (0.0-0.1); Basophils % 0.5 %; Eosinophils % 0.1 %; Hematocrit 46.1 % (42.0-52.0); Hemoglobin 14.9 g/dL (11.7-16.6); Lymphocytes # 1.3 10^3/uL (0.8-4.8); Lymphocytes % 4.1 %; Mean Corpuscular HGB Conc 32.3 g/dL (30.0-36.0); Mean Corpuscular Hemoglobin 28.1 pg (28.0-34.0); Mean Corpuscular Volume 86.8 fL (80-94); Mean Platelet Volume 9.8 fL (7.4-10.4); Monocytes # 1.2 10^3/uL (0.2-0.9); Monocytes % 3.8 %; Neutrophils # 27.4 10^3/uL (1.8-7.7); Neutrophils % 90.2 %; Nucleated Red Blood Cells % 0.1 %; Platelet Count 200 10^3/cmm (130-400); Red Blood Count 5.31 10^6/uL (4.1-5.3); Red Cell Distribution Width 17.1 % (12.1-15.1)
[2020-01-01 11:29] LABS: White Blood Count 30.4 10^3/uL (4.0-10.0)
[2020-01-01 11:41] LABS: Alanine Aminotransferase 57 U/L (0-41); Alkaline Phosphatase 231 IU/L (40-130); Aspartate Amino Transferase 29 U/L (0-40); Blood Urea Nitrogen 15 mg/dL (8-23); Calcium 9.5 mg/dL (8.5-10.5); Carbon Dioxide 25 mmol/L (22-29); Chloride 99 mmol/L (98-107); Globulin 2.9 g/dL (1.3-4.6); Glomerular Filtration Rate 112.8 mL/min (90-130); Glucose 129 mg/dL (65-115); Sodium 139 mmol/L (136-145); Total Bilirubin 0.9 mg/dL (0.15-1.2); Total Protein 6.9 g/dL (6.6-8.7)
[2020-01-08 09:30] LABS: Basophils # 0.1 10^3/uL (0.0-0.1); Basophils % 0.8 %; Eosinophils # 0.2 10^3/uL (0.0-0.8); Eosinophils % 2.1 %; Hematocrit 44.3 % (42.0-52.0); Hemoglobin 14.4 g/dL (11.7-16.6); Lymphocytes # 0.9 10^3/uL (0.8-4.8); Lymphocytes % 10.1 %; Mean Corpuscular HGB Conc 32.5 g/dL (30.0-36.0); Mean Corpuscular Hemoglobin 27.9 pg (28.0-34.0); Mean Corpuscular Volume 85.9 fL (80-94); Mean Platelet Volume 9.5 fL (7.4-10.4); Monocytes # 0.8 10^3/uL (0.2-0.9); Monocytes % 9.6 %; Neutrophils # 6.1 10^3/uL (1.8-7.7); Neutrophils % 70.3 %; Nucleated Red Blood Cells % 0 %; Platelet Count 156 10^3/cmm (130-400); Red Blood Count 5.16 10^6/uL (4.1-5.3); Red Cell Distribution Width 18.3 % (12.1-15.1); White Blood Count 8.7 10^3/uL (4.0-10.0)
[2020-01-08 10:09] LABS: Alanine Aminotransferase 43 U/L (0-41); Albumin Level 3.5 g/dL (3.5-5.2); Alkaline Phosphatase 149 IU/L (40-130); Anion Gap 17.8 (5-19); Aspartate Amino Transferase 26 U/L (0-40); Blood Urea Nitrogen 7 mg/dL (8-23); Calcium 8.9 mg/dL (8.5-10.5); Carbon Dioxide 23 mmol/L (22-29); Chloride 102 mmol/L (98-107); Globulin 2.8 g/dL (1.3-4.6); Glomerular Filtration Rate 134.8 mL/min (90-130); Glucose 101 mg/dL (65-115); Potassium 3.8 mmol/L (3.5-5.1); Sodium 139 mmol/L (136-145); Total Bilirubin 0.6 mg/dL (0.15-1.2); Total Protein 6.3 g/dL (6.6-8.7)
[2020-01-08 10:21] LABS: Slide Review Slide Review Perform
[2020-01-08 10:27] LABS: Absolute Segmented Neutrophil 3.5 10/cmm (1.6-7.1); Band Neutrophils Absolute 2.5 10^3/cmm (0.0-1.2); Basophils Absolute 0.1 10^3/cmm (0.0-0.2); Eosinophils 1 %; Lymphocytes 10 %; Platelet Estimate Normal (Normal); Segmented Neutrophils 41 %; Total Cells Counted 100 (0-100)
[2020-01-09] MEDS: acetaminophen 325 mg Tablet 650 MG PO (10:10)
[2020-01-09] MEDS: dextrose 5% 250 ML 75 ML (10:10)
--- NOTE | 2020-01-09 20:03 | ONC FU_ITS ---
Dr. Edwards Patient Follow-Up Note Patient: Mick Fritz Unit #: [id number]: 1955 Dicatated By: Tiago Edwards M.D.Date of Visit:Jan 09, 2020 Onc Med Follow-up/Prog Note Chief Complaint: Rectal cancer. 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 In April 2019 he had been referred to Dr. Altamirano for excision of a skin lesion on his chest. He also was in need of screening colonoscopy. The skin lesion turned out to be a basal cell carcinoma. The colonoscopy showed a pedunculated polyp in the descending colon which was able to be removed endoscopically. Also noted was a malignant appearing mass involving two thirds of the circumference at the first rectal fold. 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 The rectal biopsy showed tubulovillous adenoma with focal high-grade dysplasia. As it was clearly a malignant appearing lesion, he then underwent sigmoidoscopy with a repeat biopsy on 05/15/2019. Pathology at that time was consistent with well to moderately differentiated adenocarcinoma. CT abdomen pelvis showed circumferential perirectal soft tissue thickening consistent with rectal neoplasm. Also noted was left perirectal lymphadenopathy and aortocaval lymphadenopathy consistent with metastatic disease with the largest aortocaval node measuring 2.0 cm and the left perirectal node measuring 2.2 cm. He was referred to Dr. Otto in [place] for further management, and he then undergo neoadjuvant chemoradiation utilizing capecitabine for chemosensitization. He apparently was lost to follow-up there after completing the radiation. He was admitted to [facility] on 10/29/2019 after presenting to the emergency room with abdominal pain and swelling. His CT abdomen/pelvis showed evidence of abundant ascites and omental carcinomatosis. There was abnormal wall thickening and enhancement of the loops of small bowel, possibly reflecting enteritis, but concerning for neoplastic infiltration of the wall of the loops of bowel. An apple core type lesion with marked wall thickening and narrowing was noted in the distal sigmoid colon/rectum. A new ill-defined 2 cm nodule in the dome of the liver was new and suspicious for metastatic disease. On 10/30/2019 he underwent paracentesis with removal of 2000 mL of fluid. The cytology was negative. I had seen him initially on 11/02/2019. At that point he was still in pretty good performance status. Biopsy was recommended to confirm the histology of his disease, particularly with the pattern of metastatic involvement and the fact that his CEA level was normal. As the liver lesion was not accessible for needle biopsy, he underwent CT directed needle biopsy of a peritoneal mass on 11/21/2019. Pathology has just become available, and it does show metastatic adenocarcinoma, CDX 2 positive, consistent with colonic primary. In the meantime, a next generation sequencing study had been requested on his primary tumor. It showed the tumor to be MSI stable and KRAS wild type. His other medical illnesses include hypertension and GERD. He has a remote history of smoking a pack of cigarettes daily for about 10 years. He had quit smoking cigarettes sometime in his early 20s, but he has continued smoking a cigar about 3 times a week. INTERIM HISTORY: On 11/29/2019 he began cycle 1 of palliative chemotherapy with modified FOLFOX in combination with panitumumab. At that point he had very poor oral intake and very marginal performance status. He required IV fluid support, but he was able to tolerate the treatment without significant acute toxicity. By day 5 he was neutropenic, but he recovered uneventfully with Neupogen. He began to show gradual improvement in his symptoms. He was able to continue with cycle 2 on 12/12/2019 and with cycle 3 on 12/26/2019, both administered with Neulasta prophylactically. He is seen for a scheduled visit. He has continued to gradually feel better. He has good appetite now. He says he is eating like a horse. His weight is up 10 pounds. His activity tolerance also is improving. ECOG score is 1. He has not had fever or night sweats. He had developed a significant skin eruption after his initial treatment, but that has been managed with dexamethasone and with topical clindamycin. He does complain that he has sinus drainage, and he also reports having sores in his nose, but not his mouth. He has no shortness of breath, cough, or chest pain. He has not been having nausea. His acid reflux is controlled with omeprazole. He developed diarrhea for 5 days ago, lasting for only 2 days. The maximum was 5 stools per 24 hours. It was controlled with Imodium. He had some diarrhea again this morning, but he thinks that it was just related to something he ate. He has frequent urination, both during the daytime and at night. He is not having any significant joint or bone pain, and he has not been having any significant neuropathy symptoms. Medications: Acyclovir (400 mg) Tablet Oral Take as Directed, Allergy Relief 1 (10 mg) Tablet Oral daily for 5 days, amLODIPine Besylate 1 (10 mg) Tablet Oral daily, Dexamethasone (4 mg) Tablet Oral Take as Directed, Flomax 1 Capsule Oral at bedtime, Imodium A-D 1 - 2 (2 mg) Capsule Oral q 4 hours PRN, LORazepam 0.5 - 1 Tablet (of 1 mg) Oral t.i.d. PRN, Omeprazole 1 (20 mg) Capsule Delayed Release Oral daily, oxyCODONE HCl 1 (10 mg) Tablet Oral q 4 hours PRN, Prochlorperazine Maleate 1 Tablet (of 10 mg) Oral q 4 hours PRN Allergies: No Known Allergies. Review of Systems: Constitutional - His energy is getting better. He is up and around more and doing more activity at home. His appetite is much better and his weight is up about 10 pounds since his last visit. No fever, chills, hot flashes, or night sweats. ECOG score is 1, ENMT - He has sinus congestion/drainage. He has sores inside his nose. No mouth sores. No sore throat or difficulty swallowing, Hematologic/Lymphatic - No abnormal bruising or bleeding, Respiratory - No shortness of breath. No cough. No pleuritic pain or hemoptysis, Cardiovascular - No angina pain. No palpitations, Gastrointestinal - No nausea or vomiting. He takes Prilosec to help with heartburn and acid reflux. He had pretty severe diarrhea after his last treatment, but only for 2 days. It was controlled with Imodium. No blood in the stool or black stools, Genitourinary (M) - No dysuria or hematuria. He has urinary frequency, both during the day and at night. No urgency or incontinence, Musculoskeletal - No joint or bone pain, Integumentary - No skin complications, Neurologic - No headache or dizziness. He no longer has the numbness and tingling that he had in his thighs, Psychiatric - He had some depression while taking his pain pills. Since his pain has gotten better and he has not taken pills in a while, his depression has gotten better. No insomnia. Vital Signs: Performed on Jan 09, 2020 09:25 Height - 70.00 in Weight - 172.0 lbs (HIGH) BSA - 1.96 sq.m BMI - 24.68 Temperature - 97.5 F (LOW) Pulse - 85 /min Respiration - 20 /min BP - 124/90 mm(hg) O2 Sat - 97 % Pain - 0 Physical Examination: Constitutional - He looks better generally, Eyes - Sclerae nonicteric. Conjunctivae clear, ENMT - No lesions noted in the oral cavity. The nasal mucosa appears irritated, Hematologic/Lymphatic - No cervical, clavicular, or axillary adenopathy, Respiratory - Lungs are clear with good air movement bilaterally, Cardiovascular - Heart rhythm is regular. There is no murmur, gallop, or rub noted, Abdomen - Soft. Liver and spleen are not enlarged. There is no abdominal mass noted and there is no inguinal adenopathy, Extremities - No edema, Integumentary - He has just a mild skin eruption, mainly in the facial area, Neurologic - No focal neurologic deficits noted. Lab/Imaging: CBC shows hemoglobin 14.4 g, white blood cell count 8700, and platelet count 156,000. Comprehensive metabolic profile is unremarkable except for slightly elevated alkaline phosphatase at 149/130 IU/L. Impression: 1. Patient with well to moderately differentiated adenocarcinoma of the rectum, by clinical evaluation stage IVC (T3, N2, M1c) with CT evidence of metastatic involvement in the peritoneum and liver. He has associated ascites. 2. He underwent chemoradiation utilizing capecitabine for chemosensitization following initial diagnosis of the rectal cancer in May 2019. 3. CT-directed needle biopsy of right peritoneal mass on 11/21/2019 confirmed adenocarcinoma consistent with colorectal primary. The tumor was confirmed to be MSI stable and KRAS wild-type. His other medical illnesses include: 4. Hypertension. 5. GERD. On 11/29/2019 he began cycle 1 of palliative chemotherapy with modified FOLFOX in combination with panitumumab. He was able to tolerate it with acceptable toxicity and he the continued with cycle 2 on 12/12/2019 and with cycle 3 on 12/26/2019. His major treatment-related side effects have included skin rash and neutropenia. The skin eruption has been managed adequately with dexamethasone and topical clindamycin. His neutropenia has been managed with growth factor support. Overall, he continues to tolerate the treatment well. He does appear to be showing a good response, as he continues to show gradual but significant improvement in his clinical status. Plan: He will continue with cycle 4 of modified FOLFOX/panitumumab. The dosages will remain the same. I am going to try omitting Neulasta with this cycle. He will be given acyclovir empirically for the nasal mucosal lesions. I also will have him start tamsulosin 0.4 mg at bedtime for his voiding symptoms. He returns in 2 weeks. Signed By: Tiago Edwards M.D. <<Signature on File>>
== END 2020-01-12 23:59 | disposition home or self-care (01) ==
LOC: ONCMED 05:41
PROVIDERS: Nurse Practitioner; Family Provider Family Medicine; PCP Family Medicine; Visit Provider Internal Medicine Medical Oncology
DX: Z51.11 Encounter for antineoplastic chemotherapy (principal); C20 Malignant neoplasm of rectum; C78.7 Secondary malignant neoplasm of liver and intrahepatic bile duct; C78.6 Secondary malignant neoplasm of retroperitoneum and peritoneum; D70.1 Agranulocytosis secondary to cancer chemotherapy; T45.1X5A Adverse effect of antineoplastic and immunosuppressive drugs, initial encounter; Z45.2 Encounter for adjustment and management of vascular access device; I10 Essential (primary) hypertension; K21.9 Gastro-esophageal reflux disease without esophagitis; F17.210 Nicotine dependence, cigarettes, uncomplicated; F10.20 Alcohol dependence, uncomplicated; F32.9 Major depressive disorder, single episode, unspecified; R35.0 Frequency of micturition; Z79.891 Long term (current) use of opiate analgesic; Z85.828 Personal history of other malignant neoplasm of skin
CPT/HCPCS: 36415; 36591; 80053; 82378; 83735; 85007; 85025; 96360; 96367; 96368; 96372; 96413; 96415; 96416; 96417; 96523; 99214; J0640; J1100; J1200; J2469; J2505; J3490; J7030; J7050; J9263; J9303

== ENCOUNTER → 2020-01-21 13:40 | Outpatient (BNVA) | payer MEDICARE, OTHER, SELFPAY | PROVIDERS: Family Provider Family Medicine; PCP Family Medicine; Visit Provider Family Medicine | DX: E78.5 Hyperlipidemia, unspecified (principal); I10 Essential (primary) hypertension | CPT/HCPCS: 80061 ==

== ENCOUNTER 2020-02-08 06:29 | Outpatient (RCR) | payer MEDICARE, OTHER, SELFPAY ==
[2020-01-22 11:13] LABS: Basophils % 0.5 %; Eosinophils # 0.1 10^3/uL (0.0-0.8); Eosinophils % 1.9 %; Hematocrit 43.1 % (42.0-52.0); Lymphocytes # 0.7 10^3/uL (0.8-4.8); Lymphocytes % 11.1 %; Mean Corpuscular HGB Conc 32.5 g/dL (30.0-36.0); Mean Corpuscular Hemoglobin 28.5 pg (28.0-34.0); Mean Corpuscular Volume 87.8 fL (80-94); Mean Platelet Volume 9.6 fL (7.4-10.4); Monocytes # 0.7 10^3/uL (0.2-0.9); Monocytes % 10.8 %; Neutrophils # 4.8 10^3/uL (1.8-7.7); Neutrophils % 74.5 %; Nucleated Red Blood Cells % 0 %; Platelet Count 129 10^3/cmm (130-400); Red Blood Count 4.91 10^6/uL (4.1-5.3); Red Cell Distribution Width 20.9 % (12.1-15.1); White Blood Count 6.4 10^3/uL (4.0-10.0)
[2020-01-22 11:26] LABS: Alanine Aminotransferase 49 U/L (0-41); Albumin Level 3.4 g/dL (3.5-5.2); Alkaline Phosphatase 102 IU/L (40-130); Anion Gap 14.8 (5-19); Aspartate Amino Transferase 34 U/L (0-40); Blood Urea Nitrogen 9 mg/dL (8-23); Calcium 8.5 mg/dL (8.5-10.5); Carbon Dioxide 23 mmol/L (22-29); Chloride 106 mmol/L (98-107); Globulin 2.7 g/dL (1.3-4.6); Glomerular Filtration Rate 134.8 mL/min (90-130); Glucose 116 mg/dL (65-115); Osmolality Calculated 287 mOsm/kg (285-295); Potassium 3.8 mmol/L (3.5-5.1); Sodium 140 mmol/L (136-145); Total Bilirubin 1.1 mg/dL (0.15-1.2); Total Protein 6.1 g/dL (6.6-8.7)
--- NOTE | 2020-01-23 09:55 | ONC FU_ITS ---
[facility]ahul Yates Patient Note Patient: Mick Fritz Unit #: [id number]: [id number] Dictated By: Jose R YeungDate of Visit: Jan 23, 2020 Onc MED Follow-Up/Prog Note Chief Complaint: Rectal cancer. 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 In April 2019 he had been referred to Dr. Altamirano for excision of a skin lesion on his chest. He also was in need of screening colonoscopy. The skin lesion turned out to be a basal cell carcinoma. The colonoscopy showed a pedunculated polyp in the descending colon which was able to be removed endoscopically. Also noted was a malignant appearing mass involving two thirds of the circumference at the first rectal fold. 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 The rectal biopsy showed tubulovillous adenoma with focal high-grade dysplasia. As it was clearly a malignant appearing lesion, he then underwent sigmoidoscopy with a repeat biopsy on 05/15/2019. Pathology at that time was consistent with well to moderately differentiated adenocarcinoma. CT abdomen pelvis showed circumferential perirectal soft tissue thickening consistent with rectal neoplasm. Also noted was left perirectal lymphadenopathy and aortocaval lymphadenopathy consistent with metastatic disease with the largest aortocaval node measuring 2.0 cm and the left perirectal node measuring 2.2 cm. He was referred to Dr. Otto in [place] for further management, and he then underwent neoadjuvant chemoradiation utilizing capecitabine for chemosensitization. He apparently was lost to follow-up there after completing the radiation. He was admitted to [facility] on 10/29/2019 after presenting to the emergency room with abdominal pain and swelling. His CT abdomen/pelvis showed evidence of abundant ascites and omental carcinomatosis. There was abnormal wall thickening and enhancement of the loops of small bowel, possibly reflecting enteritis, but concerning for neoplastic infiltration of the wall of the loops of bowel. An apple core type lesion with marked wall thickening and narrowing was noted in the distal sigmoid colon/rectum. A new ill-defined 2 cm nodule in the dome of the liver was new and suspicious for metastatic disease. On 10/30/2019 he underwent paracentesis with removal of 2000 mL of fluid. The cytology was negative. Dr Edwards had seen him initially on 11/02/2019. At that point he was still in pretty good performance status. Biopsy was recommended to confirm the histology of his disease, particularly with the pattern of metastatic involvement and the fact that his CEA level was normal. As the liver lesion was not accessible for needle biopsy, he underwent CT directed needle biopsy of a peritoneal mass on 11/21/2019. Pathology has just become available, and it does show metastatic adenocarcinoma, CDX 2 positive, consistent with colonic primary. In the meantime, a next generation sequencing study had been requested on his primary tumor. That study has also just now become available, and it does show the tumor to be MSI stable and KRAS wild type. His other medical illnesses include hypertension and GERD. He has a remote history of smoking a pack of cigarettes daily for about 10 years. He had quit smoking cigarettes sometime in his early 20s, but he has continued smoking a cigar about 3 times a week. INTERIM HISTORY: Mr Fritz was offered palliative chemotherapy with FOLFOX/Vectibix. He began cycle 1 on 11/29/2019. He has had chemo induced neutropenia as well as chemo induced diarrhea with his first 2 cycles. He required growth factor support which was tolerated relatively well. The Neulasta was omitted with cycle 4 and his counts are holding well at this time. Mr. Fritz is here today for follow-up. He is due for cycle 5 FOLFOX/vectibix. He states overall he continues to do well. His energy is still marginal at times. He states his nasal lesions are better. There responded well to the treatment Dr. Edwards had prescribed. When asked about his urinary patterns at night. He states they are better but he continues to wake up at night, not to urinate but does because he is awake. He states he relates this to sleeping a lot during the day. His son agrees that he does sleep a lot during the day. We did discuss using Benadryl or Lorazepam as a sleep aid to try to get his cycles reversed so that he can sleep at night and be awake more during the day. He denies any diarrhea or constipation. He states his bowels have been doing much better. He states they are normal. He denies any fever or chills. He denies any mouth sores. He has had no nausea or vomiting. He states he is eating everything in sight . He has no new concerns today. He states he does have dry skin but responds well to lotion. He states at least lotions every day at night. He is aware that he can do that multiple times of the day and so probably help the itching of his skin even more. He states he was out working in the yard some yesterday and tolerated this well. His ECOG is 1. Mr. Fritz is here today for follow-up. He is due for cycle FOLFOX/vectibix. Past Medical History: Gastroesophageal reflux disease Hypertension Rectal cancer Past Surgical History: Liver biopsy Tonsillectomy Left side porthacatheter placement dr. altamirano in 2020 Sigmoidoscopy with biopsy of rectal mass in 2019 Colonoscopy in 2019 Excision of basal cell skin cancer in 2019 Allergies: No Known Allergies. Medications: Acyclovir (400 mg) Tablet Oral Take as Directed Allergy Relief 1 (10 mg) Tablet Oral daily for 5 days amLODIPine Besylate 1 (10 mg) Tablet Oral daily Dexamethasone (4 mg) Tablet Oral Take as Directed Flomax 1 Capsule Oral at bedtime Imodium A-D 1 - 2 (2 mg) Capsule Oral q 4 hours PRN LORazepam 0.5 - 1 Tablet (of 1 mg) Oral t.i.d. PRN Omeprazole 1 (20 mg) Capsule Delayed Release Oral daily oxyCODONE HCl 1 (10 mg) Tablet Oral q 4 hours PRN Prochlorperazine Maleate 1 Tablet (of 10 mg) Oral q 4 hours PRN Family History: Mr. Fritz's mother is alive. Mr. Fritz's father at age 92: heart disease, and type II diabetes. Mr. Fritz has 1 brother who is alive. He has 1 sister who is alive. Mother still living at age 89. Father with heart disease at age 92. He also had diabetes. A maternal aunt had breast cancer. His maternal grandfather had lung cancer. 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 Mr. Fritz quit smoking 46 years ago but had smoked 1.0 pack/day for 12 years. He drinks occasionally. He consumes 2 drinks/day 3 days/week. He has indicated exposure to the following products: cigars. Mr. Fritz reports the following support systems: lives with spouse, significant other, family, or friends and adequate transportation available for expected visits. His diet consists of regular meals. He indicates his activity level as: light exercise. 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 He has a history of smoking 1 pack of cigarettes daily for 10 years, but he had quit by sometime in his early 20s. He smokes a cigar about 3 times a week. Alcohol use averages 2 beers 3 days a week. Review Of Symptoms: Constitutional Denies fevers, chills, night sweats, excessive fatigue or weight loss. Allergic/Immunologic No reactions. Eyes Denies significant visual changes. No diplopia. No amaurosis. ENMT Denies changes in hearing, sore throat, mouth sores, difficulty or changes in swallowing ability, and/or sinus drainage. Hematologic/Lymphatic Denies easy bruising or bleeding. The patient denies any tender or palpable lymph nodes. Respiratory Denies dyspnea on exertion, chest pain, cough or hemoptysis. Denies orthopnea. Cardiovascular Denies anginal chest pain, palpitations or orthopnea. Gastrointestinal Denies current nausea, vomiting, diarrhea, GI bleeding, or constipation. Denies change in bowel habits and/or stool color, no heartburn or early satiety. Genitourinary (M) Denies hematuria, dysuria, increased frequency, urgency, hesitancy or incontinence. Musculoskeletal Denies joint pain, swelling or redness. No decreased range of motion. Integumentary Denies chronic rashes, inflammation, ulcerations or skin changes. Skin is very dry but responds to lotions. He states he lotions at bedtime. Neurologic Denies headache, blurred vision, and no areas of focal weakness or numbness. Normal gait. No sensory problems. Psychiatric Denies insomnia, depression, jeanette or mood swings. Vital Signs: Performed on Jan 23, 2020 08:58 Height - 70.00 in Weight - 167.0 lbs (LOW) BSA - 1.93 sq.m BMI - 23.96 Temperature - 97.8 F (LOW) Pulse - 74 /min Respiration - 16 /min BP - 111/83 mm(hg) O2 Sat - 99 % Pain - 0 Fatigue - 2,1 - No physically strenuous activity, but ambulatory and able to carry out light or sedentary work (e.g. office work, light house work). (ECOG) Physical Examination: Constitutional Alert, oriented, no acute distress. Skin pink, warm and dry. Head Normocephalic; atraumatic. Eyes Conjunctivae and sclerae are clear and without icterus. Pupils are reactive and equal. Neck Supple without masses or thyromegaly. No jugular venous distension. Hematologic/Lymphatic No petechiae or purpura. No tender or palpable lymph nodes in the cervical or supraclavicular areas. Respiratory Lungs are clear to auscultation without rhonchi or wheezing. Cardiovascular Regular rate and rhythm of heart without murmurs,clicks, gallops or rubs. Back/Spine Non-tender to palpation. Extremities No visible deformities, no cyanosis, clubbing or edema. Musculoskeletal No tenderness or swelling, normal range of motion without obvious weakness. Integumentary No rashes or lesions. Skin is noted to be dry but not flaking at present. Evidence of scratching on right forearms. Mild healed acne formed rash around nose. Neurologic No sensory or motor deficits, normal cerebellar function, normal gait. Psychiatric Alert and oriented times three. Coherent speech. Verbalizes understanding of our discussions today. Laboratory:Test performed on Jan 22, 2020 10:50 Sodium 140 mmol/L Potassium 3.8 mmol/L Chloride 106 mmol/L CO2 23 mmol/L Anion Gap 14.8 BUN 9 mg/dL Creatinine 0.6 mg/dL Cr Clearance (Est) 125.7200 mL/min eGFR 134.8 mL/min Glucose 116 mg/dL Calcium 8.5 mg/dL Protein, Total 6.1 g/dL Albumin 3.4 g/dL Globulin 2.7 g/dL Bilirubin, Total 1.1 mg/dL ALT (SGPT) 49 U/L AST (SGOT) 34 U/L Alkaline Phosphatase 102 IU/L WBC 6.4 10 3/uL RBC 4.91 10 6/uL HGB 14.0 g/dL HCT 43.1 % MCV 87.8 fL MCH 28.5 pg MCHC 32.5 g/dL RDW 20.9 % Platelet Count 129 10 3/cmm MPV 9.6 fL Neutrophils 4.8 10 3/uL Lymphocytes 0.7 10 3/uL Monocytes 0.7 10 3/uL Eosinophils 0.1 10 3/uL Basophils 0.0 10 3/uL Neutrophil % 74.5 % Lymphocyte % 11.1 % Monocyte % 10.8 % Eosinophil % 1.9 % Basophils % 0.5 % Impression: 1. Patient with well to moderately differentiated adenocarcinoma of the rectum, by clinical evaluation stage IVC (T3, N2, M1c) with CT evidence of a metastatic lesion in the liver and with biopsy proven metastatic involvement in the peritoneum. He has associated ascites. 2. A next generation sequencing study showed his primary tumor to be MSI stable. A KRAS mutation was not detected. 3. He underwent chemoradiation utilizing capecitabine for chemosensitization following initial diagnosis of the rectal cancer in May 2019. His other medical illnesses include: 4. Hypertension. 5. GERD. Mr Fritz began palliative chemotherapy with FOLFOX/Vectibix on 11/29/2019. He had significant nausea and diarrhea with cycle 1. Cycle 2 was much better in regards to the nausea, but he had persistent diarrhea for up to 8 days. He states he thinks he has the Imodium figured out on how to take it and when to start it. Clinically he is improving in his appetite and performance status. He did have significant neutropenia with cycle 1 day ANC on day 8 of 1200. He required growth factor support and received prophylactic Neulasta through cycle 3. His neutrophil count has recovered and has been adequate for treatment. He continues to tolerate the treatment well overall. His platelets are trending down a little, but not enough to interrupt treatment. Plan: 1. Proceed with cycle 5 FOLFOX and vectibix. His dosing will remain the same. 2. Neulasta has been omitted and his neutrophils are holding well at the present. 3. He has try Bendaryl or lorazepam for sleep as needed. 4. Labs from January 22, 2020 were reviewed in detail and discussed with Mr. Fritz and a copy was given to him. WBC 6.4, hemoglobin 14.0 platelets 129,000 ANC was 4800. Creatinine 0.6 LFTs are unremarkable. Potassium 3.8. 5. We will have him return in 2 weeks with CBC CMP and CEA. I did not request an interim CBC as he states he appreciated having the week off. His platelets are trending down, but so far the decline has not been dramatic between treatments. 8. Mr. Fritz was instructed to contact us in the interim should questions or problems arise. 9. Daily exercise and pursuing activites of daily living encouraged, but also advised him to pace himself to help manage the fatigue as gradual increase in activities helps increase his exercise tolerance and energy levels. Signed By: Francesco YeungN.P. <<Signature on File>>
[2020-01-23] MEDS: acetaminophen 325 mg Tablet 650 MG PO (10:00)
[2020-01-23] MEDS: dextrose 5% 250 ML 75 ML IV (10:08)
[2020-02-05 09:28] LABS: Basophils % 0.3 %; Eosinophils # 0.1 10^3/uL (0.0-0.8); Eosinophils % 1.3 %; Hematocrit 46.3 % (42.0-52.0); Hemoglobin 15.4 g/dL (11.7-16.6); Lymphocytes # 0.7 10^3/uL (0.8-4.8); Lymphocytes % 11.5 %; Mean Corpuscular HGB Conc 33.3 g/dL (30.0-36.0); Mean Corpuscular Hemoglobin 30.2 pg (28.0-34.0); Mean Corpuscular Volume 90.8 fL (80-94); Mean Platelet Volume 10.5 fL (7.4-10.4); Monocytes # 0.8 10^3/uL (0.2-0.9); Monocytes % 12.6 %; Neutrophils # 4.4 10^3/uL (1.8-7.7); Neutrophils % 72.7 %; Nucleated Red Blood Cells % 0 %; Platelet Count 79 10^3/cmm (130-400); Red Cell Distribution Width 21.9 % (12.1-15.1); White Blood Count 6.1 10^3/uL (4.0-10.0)
[2020-02-05 09:40] LABS: Alanine Aminotransferase 59 U/L (0-41); Albumin Level 3.8 g/dL (3.5-5.2); Alkaline Phosphatase 104 IU/L (40-130); Anion Gap 15.9 (5-19); Aspartate Amino Transferase 38 U/L (0-40); Blood Urea Nitrogen 14 mg/dL (8-23); Calcium 8.8 mg/dL (8.5-10.5); Carbon Dioxide 23 mmol/L (22-29); Chloride 103 mmol/L (98-107); Globulin 2.5 g/dL (1.3-4.6); Glomerular Filtration Rate 134.8 mL/min (90-130); Glucose 118 mg/dL (65-115); Osmolality Calculated 283 mOsm/kg (285-295); Potassium 3.9 mmol/L (3.5-5.1); Sodium 138 mmol/L (136-145); Total Bilirubin 1.2 mg/dL (0.15-1.2); Total Protein 6.3 g/dL (6.6-8.7)
[2020-02-06] MEDS: dextrose 5% 250 ML 75 ML IV (10:25)
--- NOTE | 2020-02-06 13:01 | ONC FU_ITS ---
Dr. Edwards Patient Follow-Up Note Patient: Mick Fritz Unit #: [id number]: 1955 Dicatated By: Tiago Edwards M.D.Date of Visit:Feb 06, 2020 Onc Med Follow-up/Prog Note Chief Complaint: Rectal cancer. 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 In April 2019 he had been referred to Dr. Altamirano for excision of a skin lesion on his chest. He also was in need of screening colonoscopy. The skin lesion turned out to be a basal cell carcinoma. The colonoscopy showed a pedunculated polyp in the descending colon which was able to be removed endoscopically. Also noted was a malignant appearing mass involving two thirds of the circumference at the first rectal fold. 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 The rectal biopsy showed tubulovillous adenoma with focal high-grade dysplasia. As it was clearly a malignant appearing lesion, he then underwent sigmoidoscopy with a repeat biopsy on 05/15/2019. Pathology at that time was consistent with well to moderately differentiated adenocarcinoma. CT abdomen pelvis showed circumferential perirectal soft tissue thickening consistent with rectal neoplasm. Also noted was left perirectal lymphadenopathy and aortocaval lymphadenopathy consistent with metastatic disease with the largest aortocaval node measuring 2.0 cm and the left perirectal node measuring 2.2 cm. He was referred to Dr. Otto in [place] for further management, and he then undergo neoadjuvant chemoradiation utilizing capecitabine for chemosensitization. He apparently was lost to follow-up there after completing the radiation. He was admitted to [facility] on 10/29/2019 after presenting to the emergency room with abdominal pain and swelling. His CT abdomen/pelvis showed evidence of abundant ascites and omental carcinomatosis. There was abnormal wall thickening and enhancement of the loops of small bowel, possibly reflecting enteritis, but concerning for neoplastic infiltration of the wall of the loops of bowel. An apple core type lesion with marked wall thickening and narrowing was noted in the distal sigmoid colon/rectum. A new ill-defined 2 cm nodule in the dome of the liver was new and suspicious for metastatic disease. On 10/30/2019 he underwent paracentesis with removal of 2000 mL of fluid. The cytology was negative. I had seen him initially on 11/02/2019. At that point he was still in pretty good performance status. Biopsy was recommended to confirm the histology of his disease, particularly with the pattern of metastatic involvement and the fact that his CEA level was normal. As the liver lesion was not accessible for needle biopsy, he underwent CT directed needle biopsy of a peritoneal mass on 11/21/2019. Pathology has just become available, and it does show metastatic adenocarcinoma, CDX 2 positive, consistent with colonic primary. In the meantime, a next generation sequencing study had been requested on his primary tumor. It showed the tumor to be MSI stable and KRAS wild type. His other medical illnesses include hypertension and GERD. He has a remote history of smoking a pack of cigarettes daily for about 10 years. He had quit smoking cigarettes sometime in his early 20s, but he has continued smoking a cigar about 3 times a week. INTERIM HISTORY: On 11/29/2019 he began cycle 1 of palliative chemotherapy with modified FOLFOX in combination with panitumumab. At that point he had very poor oral intake and very marginal performance status. He required IV fluid support, but he was able to tolerate the treatment without significant acute toxicity. By day 5 he was neutropenic, but he recovered uneventfully with Neupogen. He began to show gradual improvement in his symptoms. He was then able to continue treatment at 2-week intervals with Neulasta administered prophylactically. He began his 5th cycle of treatment on 01/23/2020. He is seen for a scheduled visit. He has been feeling good generally, as he has continued to show gradual improvement in his energy and activity tolerance. His ECOG score is 1. He has good appetite, and he has gained weight. He has no fever or night sweats. His main complaint is that his skin rash has continued to worsen despite dexamethasone and use of topical clindamycin. He has had no mouth sores. He has no shortness of breath, cough, or chest pain. He currently has no GI/ complaints other than frequent urination. He has no significant joint or bone pain. He does not complain of headache. He has occasional orthostatic lightheadedness. He has mild cold sensitivity. He has no other neuropathy symptoms. Medications: Acyclovir 1 Tablet (of 400 mg) Oral daily, Allergy Relief 1 (10 mg) Tablet Oral daily for 5 days, amLODIPine Besylate 1 (10 mg) Tablet Oral daily, Clindamycin Phosphate 1 (1 %) Lotion Topical b.i.d., Dexamethasone (4 mg) Tablet Oral Take as Directed, Flomax 1 Capsule Oral at bedtime, LORazepam 0.5 - 1 Tablet (of 1 mg) Oral t.i.d. PRN, Omeprazole 1 (20 mg) Capsule Delayed Release Oral daily, oxyCODONE HCl 1 (10 mg) Tablet Oral q 4 hours PRN, Prochlorperazine Maleate 1 Tablet (of 10 mg) Oral q 4 hours PRN Allergies: No Known Allergies. Review of Systems: Constitutional - His energy level is pretty good. He is able to do work inside and outside the house. He has a good appetite and weight is up about 7 pounds. No fever, chills, hot flashes, or night sweats. ECOG score is 1, ENMT - No sinus congestion/drainage. No mouth sores. No sore throat or difficulty swallowing, Hematologic/Lymphatic - He bruises easily, Respiratory - No shortness of breath. No cough. No pleuritic pain or hemoptysis, Cardiovascular - No angina pain. No palpitations, Gastrointestinal - No nausea or vomiting. No heartburn or acid reflux. No diarrhea or constipation. No blood in the stool or black stools, Genitourinary (M) - No dysuria or hematuria. No urinary frequency. No urgency or incontinence, Musculoskeletal - No joint or bone pain, Integumentary - His skin rash is getting worse, Neurologic - No headache. He has dizziness if he changes positions too quickly. He has mild cold sensitivity. He otherwise has no neuropathy symptoms, Psychiatric - No anxiety or depression. No insomnia. Vital Signs: Performed on Feb 06, 2020 09:37 Height - 70.00 in Weight - 174.02 lbs (HIGH) BSA - 1.97 sq.m BMI - 24.97 Temperature - 97.8 F (LOW) Pulse - 70 /min Respiration - 22 /min BP - 132/80 mm(hg) O2 Sat - 98 % Pain - 0 Physical Examination: Constitutional - He looks pretty good generally, Eyes - Sclerae nonicteric. Conjunctivae clear, ENMT - No lesions noted in the oral cavity, Hematologic/Lymphatic - No cervical, clavicular, or axillary adenopathy, Respiratory - Lungs are clear with good air movement bilaterally, Cardiovascular - Heart rhythm is regular. There is no murmur, gallop, or rub noted, Abdomen - Mildly distended but soft. Liver and spleen are not enlarged. There is no abdominal mass noted and there is no inguinal adenopathy, Extremities - No edema, Integumentary - He has a generalized maculopapular skin eruption, which has worsened significantly, especially in the facial area. His skin is generally dry, Neurologic - No focal neurologic deficits noted. Lab/Imaging: CBC shows hemoglobin 15.4 g, white blood cell count 6100, and platelet count 79,000. Comprehensive metabolic profile is unremarkable. Impression: 1. Patient with well to moderately differentiated adenocarcinoma of the rectum, by clinical evaluation stage IVC (T3, N2, M1c) with CT evidence of metastatic involvement in the peritoneum and liver. He has associated ascites. 2. He underwent chemoradiation utilizing capecitabine for chemosensitization following initial diagnosis of the rectal cancer in May 2019. 3. CT-directed needle biopsy of right peritoneal mass on 11/21/2019 confirmed adenocarcinoma consistent with colorectal primary. The tumor was confirmed to be MSI stable and KRAS wild-type. His other medical illnesses include: 4. Hypertension. 5. GERD. On 11/29/2019 he began cycle 1 of palliative chemotherapy with modified FOLFOX in combination with panitumumab. He was able to tolerate it with acceptable toxicity and he then continued treatment at 2-week intervals. During subsequent follow-up there has been significant improvement in his clinical status. Side effects with the treatment have included neutropenia and skin eruption. He has had only minimal neuropathy. He has now completed 5 cycles of treatment. At this point the skin eruption has worsened significantly despite treatment with dexamethasone and topical clindamycin. He also has developed mild to moderately severe thrombocytopenia. Plan: He will continue with his 6th cycle of treatment, but the pannitumumab will now be put on hold. He will also have a one level reduction in the oxaliplatin dosage and a 20% reduction in the 5/FU dosage. He returns in 2 weeks. Signed By: Tiago Edwards M.D. <<Signature on File>>
== END 2020-02-12 23:59 | disposition home or self-care (01) ==
LOC: ONCMED 06:29
PROVIDERS: Family Provider Family Medicine; PCP Family Medicine; Visit Provider Internal Medicine Medical Oncology
DX: Z51.11 Encounter for antineoplastic chemotherapy (principal); C20 Malignant neoplasm of rectum; C78.6 Secondary malignant neoplasm of retroperitoneum and peritoneum; C78.7 Secondary malignant neoplasm of liver and intrahepatic bile duct; Z45.2 Encounter for adjustment and management of vascular access device; D69.59 Other secondary thrombocytopenia; L25.8 Unspecified contact dermatitis due to other agents; T45.1X5A Adverse effect of antineoplastic and immunosuppressive drugs, initial encounter; I10 Essential (primary) hypertension; K21.9 Gastro-esophageal reflux disease without esophagitis; F17.210 Nicotine dependence, cigarettes, uncomplicated; Z79.52 Long term (current) use of systemic steroids; Z79.899 Other long term (current) drug therapy; Z79.891 Long term (current) use of opiate analgesic; Z92.3 Personal history of irradiation; Z85.828 Personal history of other malignant neoplasm of skin
CPT/HCPCS: 36591; 80053; 85025; 96367; 96368; 96413; 96415; 96416; 96417; 96523; 99214; J0640; J1100; J1200; J2469; J3490; J7050; J9263; J9303

== ENCOUNTER 2020-03-07 06:46 | Outpatient (RCR) | payer MEDICARE, OTHER, SELFPAY ==
[2020-02-19 17:01] LABS: Basophils % 0.5 %; Eosinophils # 0.1 10^3/uL (0.0-0.8); Eosinophils % 1.8 %; Hematocrit 46.5 % (42.0-52.0); Hemoglobin 15.1 g/dL (11.7-16.6); Lymphocytes # 0.6 10^3/uL (0.8-4.8); Lymphocytes % 12.7 %; Mean Corpuscular HGB Conc 32.5 g/dL (30.0-36.0); Mean Corpuscular Hemoglobin 30.8 pg (28.0-34.0); Mean Corpuscular Volume 94.9 fL (80-94); Mean Platelet Volume 10.2 fL (7.4-10.4); Monocytes # 0.6 10^3/uL (0.2-0.9); Monocytes % 12.7 %; Neutrophils # 3.1 10^3/uL (1.8-7.7); Neutrophils % 71.2 %; Nucleated Red Blood Cells % 0 %; Platelet Count 110 10^3/cmm (130-400); Red Cell Distribution Width 21.5 % (12.1-15.1); White Blood Count 4.4 10^3/uL (4.0-10.0)
[2020-02-19 22:56] LABS: Alanine Aminotransferase 56 U/L (0-41); Albumin Level 4.2 g/dL (3.5-5.2); Alkaline Phosphatase 121 IU/L (40-130); Anion Gap 15.3 (5-19); Aspartate Amino Transferase 40 U/L (0-40); Blood Urea Nitrogen 12 mg/dL (8-23); Calcium 9.7 mg/dL (8.5-10.5); Carbon Dioxide 27 mmol/L (22-29); Chloride 101 mmol/L (98-107); Globulin 2.4 g/dL (1.3-4.6); Glomerular Filtration Rate 96.7 mL/min (90-130); Glucose 71 mg/dL (65-115); Osmolality Calculated 285 mOsm/kg (285-295); Potassium 3.3 mmol/L (3.5-5.1); Sodium 140 mmol/L (136-145); Total Bilirubin 1.5 mg/dL (0.15-1.2); Total Protein 6.6 g/dL (6.6-8.7)
[2020-02-20] MEDS: dextrose 5% 250 ML 75 ML (09:30)
--- NOTE | 2020-02-20 12:24 | ONC FU_ITS ---
Dr. Edwards Patient Follow-Up Note Patient: Mick Fritz Unit #: [id number]: 1955 Dicatated By: Tiago Edwards M.D.Date of Visit:Feb 20, 2020 Onc Med Follow-up/Prog Note Chief Complaint: Rectal cancer. 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 In April 2019 he had been referred to Dr. Altamirano for excision of a skin lesion on his chest. He also was in need of screening colonoscopy. The skin lesion turned out to be a basal cell carcinoma. The colonoscopy showed a pedunculated polyp in the descending colon which was able to be removed endoscopically. Also noted was a malignant appearing mass involving two thirds of the circumference at the first rectal fold. 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 The rectal biopsy showed tubulovillous adenoma with focal high-grade dysplasia. As it was clearly a malignant appearing lesion, he then underwent sigmoidoscopy with a repeat biopsy on 05/15/2019. Pathology at that time was consistent with well to moderately differentiated adenocarcinoma. CT abdomen pelvis showed circumferential perirectal soft tissue thickening consistent with rectal neoplasm. Also noted was left perirectal lymphadenopathy and aortocaval lymphadenopathy consistent with metastatic disease with the largest aortocaval node measuring 2.0 cm and the left perirectal node measuring 2.2 cm. He was referred to Dr. Otto in [place] for further management, and he then undergo neoadjuvant chemoradiation utilizing capecitabine for chemosensitization. He apparently was lost to follow-up there after completing the radiation. He was admitted to [facility] on 10/29/2019 after presenting to the emergency room with abdominal pain and swelling. His CT abdomen/pelvis showed evidence of abundant ascites and omental carcinomatosis. There was abnormal wall thickening and enhancement of the loops of small bowel, possibly reflecting enteritis, but concerning for neoplastic infiltration of the wall of the loops of bowel. An apple core type lesion with marked wall thickening and narrowing was noted in the distal sigmoid colon/rectum. A new ill-defined 2 cm nodule in the dome of the liver was new and suspicious for metastatic disease. On 10/30/2019 he underwent paracentesis with removal of 2000 mL of fluid. The cytology was negative. I had seen him initially on 11/02/2019. At that point he was still in pretty good performance status. Biopsy was recommended to confirm the histology of his disease, particularly with the pattern of metastatic involvement and the fact that his CEA level was normal. As the liver lesion was not accessible for needle biopsy, he underwent CT directed needle biopsy of a peritoneal mass on 11/21/2019. Pathology has just become available, and it does show metastatic adenocarcinoma, CDX 2 positive, consistent with colonic primary. In the meantime, a next generation sequencing study had been requested on his primary tumor. It showed the tumor to be MSI stable and KRAS wild type. His other medical illnesses include hypertension and GERD. He has a remote history of smoking a pack of cigarettes daily for about 10 years. He had quit smoking cigarettes sometime in his early 20s, but he has continued smoking a cigar about 3 times a week. INTERIM HISTORY: On 11/29/2019 he began cycle 1 of palliative chemotherapy with modified FOLFOX in combination with panitumumab. At that point he had very poor oral intake and very marginal performance status. He required IV fluid support, but he was able to tolerate the treatment without significant acute toxicity. By day 5 he was neutropenic, but he recovered uneventfully with Neupogen. He began to show gradual improvement in his symptoms. He was then able to continue treatment at 2-week intervals with Neulasta administered prophylactically. He began his 6th cycle of treatment on 02/06/2020. At that point he was given a 1 level reduction in the oxaliplatin dosage and a 20% reduction in the 5-FU dosage due to thrombocytopenia. The panitumumab was put on hold due to worsening skin eruption. He is seen for a scheduled visit. He has been feeling good generally, particularly the last 3 days. He has had good energy and activity tolerance. His ECOG score is 1. His main complaint is that he went through a period of having very frequent bowel movements, though with formed stool, lasting several days. During that time his weight dropped 20 pounds. He attributed this to having eaten rabbit, as he recalled having a similar reaction in the past after he ate rabbit meat. He did not have actual diarrhea. He has had good appetite, and his weight is back up now. He has not had fever. He had one recent episode of sweating. He has had no mouth sores. He has no shortness of breath, cough, or chest pain. He recently has had a little heartburn, but he had stopped taking Prilosec. He says his bladder function is really good now. He has no significant joint or bone pain. He is having no neuropathy symptoms. His skin eruption has improved, but he still complains that his scalp is itchy. Medications: Acyclovir 1 Tablet (of 400 mg) Oral daily, amLODIPine Besylate 1 (10 mg) Tablet Oral daily, Clindamycin Phosphate 1 (1 %) Lotion Topical b.i.d., Dexamethasone (4 mg) Tablet Oral Take as Directed, fentaNYL 1 Patch(es) (of 50 mcg/hr) Patch 72 Hr Transdermal q 72 hours, Omeprazole 1 (20 mg) Capsule Delayed Release Oral daily Allergies: No Known Allergies. Review of Systems: Constitutional - His energy level is good. He is doing some light outside work. His appetite is good and weight is stable. No fever, chills, hot flashes. He had a sweating episode yesterday. ECOG score is 1, ENMT - No sinus congestion/drainage. No mouth sores. No sore throat or difficulty swallowing, Hematologic/Lymphatic - He brusies easily, Respiratory - No shortness of breath. No cough. No pleuritic pain or hemoptysis, Cardiovascular - No angina pain. No palpitations, Gastrointestinal - No nausea or vomiting. No heartburn or acid reflux. No diarrhea or constipation. No blood in the stool or black stools, Genitourinary (M) - No dysuria or hematuria. He has urinary frequency, mainly at night. No urgency or incontinence, Musculoskeletal - No joint or bone pain, Integumentary - He has some increased itchiness to his scalp. His skin rash is improved from previous visit, Neurologic - No headache or dizziness. No numbness/paresthesias or other focal neurologic symptoms, Psychiatric - No anxiety or depression. No insomnia. Vital Signs: His weight is 177 pounds. Blood pressure 141/95, pulse 91, respirations 18, temp 97.6 degrees, oxygen saturation 98%. Physical Examination: Constitutional - He looks pretty good generally, Eyes - Sclerae nonicteric. Conjunctivae clear, ENMT - No lesions noted in the oral cavity, Hematologic/Lymphatic - No cervical, clavicular, or axillary adenopathy, Respiratory - Lungs are clear with good air movement bilaterally, Cardiovascular - Heart rhythm is regular. There is no murmur, gallop, or rub noted, Abdomen - Mildly distended but soft. Liver and spleen are not enlarged. There is no abdominal mass noted and there is no inguinal adenopathy, Extremities - No edema, Integumentary - The skin eruption has improved significantly, Neurologic - No focal neurologic deficits noted. Lab/Imaging: CBC shows hemoglobin 15.1 g, white blood cell count 4400, and platelet count 110,000. Comprehensive metabolic profile shows slightly elevated total bilirubin at 1.5 mg/dL with SGPT 56/41 U/L. The other liver enzymes are normal. Potassium is slightly low at 3.3 mmol/L. Impression: 1. Patient with well to moderately differentiated adenocarcinoma of the rectum, by clinical evaluation stage IVC (T3, N2, M1c) with CT evidence of metastatic involvement in the peritoneum and liver. He has associated ascites. 2. He underwent chemoradiation utilizing capecitabine for chemosensitization following initial diagnosis of the rectal cancer in May 2019. 3. CT-directed needle biopsy of right peritoneal mass on 11/21/2019 confirmed adenocarcinoma consistent with colorectal primary. The tumor was confirmed to be MSI stable and KRAS wild-type. His other medical illnesses include: 4. Hypertension. 5. GERD. On 11/29/2019 he began cycle 1 of palliative chemotherapy with modified FOLFOX in combination with panitumumab. He was able to tolerate it with acceptable toxicity and he then continued treatment at 2-week intervals. During subsequent follow-up there was significant improvement in his clinical status. Side effects with the treatment had included neutropenia and skin eruption. He had only minimal neuropathy. Beginning with cycle 6, on 02/06/2020, he was given a 1 level reduction in the oxaliplatin dosage and a 20% reduction in the 5-FU dosage due to thrombocytopenia. The panitumumab was put on hold due to worsening skin eruption. Plan: He will continue with his 7th cycle of treatment. The dosages will remain the same. The panitumumab will remain on hold, at least for now. He returns in 2 weeks. Signed By: Tiago Edwards M.D. <<Signature on File>>
[2020-03-05 08:51] LABS: Basophils % 0.6 %; Eosinophils # 0.1 10^3/uL (0.0-0.8); Hematocrit 42.4 % (42.0-52.0); Hemoglobin 13.8 g/dL (11.7-16.6); Lymphocytes # 0.8 10^3/uL (0.8-4.8); Lymphocytes % 14.7 %; Mean Corpuscular HGB Conc 32.5 g/dL (30.0-36.0); Mean Corpuscular Hemoglobin 31.1 pg (28.0-34.0); Mean Corpuscular Volume 95.5 fL (80-94); Monocytes # 0.9 10^3/uL (0.2-0.9); Monocytes % 16.4 %; Neutrophils # 3.4 10^3/uL (1.8-7.7); Neutrophils % 65.2 %; Nucleated Red Blood Cells % 0 %; Platelet Count 125 10^3/cmm (130-400); Red Blood Count 4.44 10^6/uL (4.1-5.3); Red Cell Distribution Width 19.3 % (12.1-15.1); White Blood Count 5.2 10^3/uL (4.0-10.0)
[2020-03-05 09:02] LABS: Alanine Aminotransferase 48 U/L (0-41); Albumin Level 3.8 g/dL (3.5-5.2); Alkaline Phosphatase 115 IU/L (40-130); Anion Gap 14.6 (5-19); Aspartate Amino Transferase 34 U/L (0-40); Blood Urea Nitrogen 12 mg/dL (8-23); Calcium 8.9 mg/dL (8.5-10.5); Carbon Dioxide 25 mmol/L (22-29); Chloride 106 mmol/L (98-107); Globulin 2.4 g/dL (1.3-4.6); Glomerular Filtration Rate 112.8 mL/min (90-130); Glucose 116 mg/dL (65-115); Osmolality Calculated 291 mOsm/kg (285-295); Potassium 3.6 mmol/L (3.5-5.1); Sodium 142 mmol/L (136-145); Total Bilirubin 0.8 mg/dL (0.15-1.2); Total Protein 6.2 g/dL (6.6-8.7)
[2020-03-05] MEDS: dextrose 5% 250 ML 75 ML IV (10:00)
[2020-03-05] MEDS: acetaminophen 325 mg Tablet 650 MG PO (14:15)
--- NOTE | 2020-03-08 12:31 | ONC FU_ITS ---
Dr. Edwards Patient Follow-Up Note Patient: Mick Fritz Unit #: [id number]: 1955 Dicatated By: Tiago Edwards M.D.Date of Visit:Mar 05, 2020 Onc Med Follow-up/Prog Note Chief Complaint: Rectal cancer. 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 In April 2019 he had been referred to Dr. Altamirano for excision of a skin lesion on his chest. He also was in need of screening colonoscopy. The skin lesion turned out to be a basal cell carcinoma. The colonoscopy showed a pedunculated polyp in the descending colon which was able to be removed endoscopically. Also noted was a malignant appearing mass involving two thirds of the circumference at the first rectal fold. 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 The rectal biopsy showed tubulovillous adenoma with focal high-grade dysplasia. As it was clearly a malignant appearing lesion, he then underwent sigmoidoscopy with a repeat biopsy on 05/15/2019. Pathology at that time was consistent with well to moderately differentiated adenocarcinoma. CT abdomen pelvis showed circumferential perirectal soft tissue thickening consistent with rectal neoplasm. Also noted was left perirectal lymphadenopathy and aortocaval lymphadenopathy consistent with metastatic disease with the largest aortocaval node measuring 2.0 cm and the left perirectal node measuring 2.2 cm. He was referred to Dr. Otto in [place] for further management, and he then undergo neoadjuvant chemoradiation utilizing capecitabine for chemosensitization. He apparently was lost to follow-up there after completing the radiation. He was admitted to [facility] on 10/29/2019 after presenting to the emergency room with abdominal pain and swelling. His CT abdomen/pelvis showed evidence of abundant ascites and omental carcinomatosis. There was abnormal wall thickening and enhancement of the loops of small bowel, possibly reflecting enteritis, but concerning for neoplastic infiltration of the wall of the loops of bowel. An apple core type lesion with marked wall thickening and narrowing was noted in the distal sigmoid colon/rectum. A new ill-defined 2 cm nodule in the dome of the liver was new and suspicious for metastatic disease. On 10/30/2019 he underwent paracentesis with removal of 2000 mL of fluid. The cytology was negative. I had seen him initially on 11/02/2019. At that point he was still in pretty good performance status. Biopsy was recommended to confirm the histology of his disease, particularly with the pattern of metastatic involvement and the fact that his CEA level was normal. As the liver lesion was not accessible for needle biopsy, he underwent CT directed needle biopsy of a peritoneal mass on 11/21/2019. Pathology has just become available, and it does show metastatic adenocarcinoma, CDX 2 positive, consistent with colonic primary. In the meantime, a next generation sequencing study had been requested on his primary tumor. It showed the tumor to be MSI stable and KRAS wild type. His other medical illnesses include hypertension and GERD. He has a remote history of smoking a pack of cigarettes daily for about 10 years. He had quit smoking cigarettes sometime in his early 20s, but he has continued smoking a cigar about 3 times a week. INTERIM HISTORY: On 11/29/2019 he began cycle 1 of palliative chemotherapy with modified FOLFOX in combination with panitumumab. At that point he had very poor oral intake and very marginal performance status. He required IV fluid support, but he was able to tolerate the treatment without significant acute toxicity. By day 5 he was neutropenic, but he recovered uneventfully with Neupogen. He began to show gradual improvement in his symptoms. He was then able to continue treatment at 2-week intervals with Neulasta administered prophylactically. He began his 6th cycle of treatment on 02/06/2020. At that point he was given a 1 level reduction in the oxaliplatin dosage and a 20% reduction in the 5-FU dosage due to thrombocytopenia. The panitumumab was put on hold due to worsening skin eruption. He continue with his cycle 7 treatment on 02/20/2020. He is seen for a scheduled visit. He has been feeling good generally. He says his energy is really good. His legs are gradually getting stronger. ECOG score is 1. He has good appetite. He does not have fever or night sweats. He has not had mouth sores, but he does complaining of having dry mouth at night. He has no shortness of breath, cough, or chest pain. He has no GI complaints. Bladder function has improved. He has some joint pain, mainly in the right wrist, but it seems to be related to recent activities. He has cold sensitivity for 2 to 3 days after treatment. He has no other neuropathy symptoms. His skin eruption has pretty well resolved since he has been off the panitumumab. Medications: Acyclovir 1 Tablet (of 400 mg) Oral daily, amLODIPine Besylate 1 (10 mg) Tablet Oral daily, Dexamethasone (4 mg) Tablet Oral Take as Directed, Lomotil 1 Tablet (of 2.5-0.025 mg) Oral PRN, Omeprazole 1 (20 mg) Capsule Delayed Release Oral daily, Tamsulosin HCl 1 Capsule (of 0.4 mg) Oral daily Allergies: No Known Allergies. Review of Systems: Constitutional - His energy level is very good. His appetite is good and weight is stable. No fever, chills, hot flashes, or night sweats. ECOG score is 1, ENMT - No sinus congestion/drainage. No mouth sores. No sore throat or difficulty swallowing, Hematologic/Lymphatic - He bruises easily, Respiratory - No shortness of breath. No cough. No pleuritic pain or hemoptysis, Cardiovascular - No angina pain. No palpitations, Gastrointestinal - No nausea or vomiting. No heartburn or acid reflux. No diarrhea or constipation. No blood in the stool or black stools, Genitourinary (M) - No dysuria or hematuria. His nocturia has improved. No urgency or incontinence, Musculoskeletal - He has some joint pain in his right wrist/hand, Integumentary - His skin rash continues to improve, Neurologic - No headache or dizziness. He gets tingling in his mouth a few days after treatment, mainly with cold liquids, Psychiatric - No anxiety or depression. No insomnia. Vital Signs: Performed on Mar 05, 2020 09:07 Height - 70.00 in Weight - 186.6 lbs (HIGH) BSA - 2.03 sq.m BMI - 26.77 Temperature - 98.2 F (LOW) Pulse - 75 /min Respiration - 18 /min BP - 141/87 mm(hg) (HIGH) O2 Sat - 98 % Pain - 4 Physical Examination: Constitutional - He looks pretty good generally, Eyes - Sclerae nonicteric. Conjunctivae clear, ENMT - No lesions noted in the oral cavity, Hematologic/Lymphatic - No cervical, clavicular, or axillary adenopathy, Respiratory - Lungs are clear with good air movement bilaterally, Cardiovascular - Heart rhythm is regular. There is no murmur, gallop, or rub noted, Abdomen - Mildly distended but soft. Liver and spleen are not enlarged. There is no abdominal mass noted and there is no inguinal adenopathy, Extremities - No edema. There are scattered purpuric lesions, Integumentary - The skin eruption has almost completely resolved, Neurologic - No focal neurologic deficits noted. Lab/Imaging: Test performed on Mar 05, 2020 08:10 Sodium 142 mmol/L Potassium 3.6 mmol/L Chloride 106 mmol/L CO2 25 mmol/L Anion Gap 14.6 BUN 12 mg/dL Creatinine 0.7 mg/dL Cr Clearance (Est) 124.28 mL/min eGFR 112.8 mL/min Glucose 116 mg/dL Calcium 8.9 mg/dL Protein, Total 6.2 g/dL Albumin 3.8 g/dL Globulin 2.4 g/dL Bilirubin, Total 0.8 mg/dL ALT (SGPT) 48 U/L AST (SGOT) 34 U/L Alkaline Phosphatase 115 IU/L WBC 5.2 10 3/uL RBC 4.44 10 6/uL HGB 13.8 g/dL HCT 42.4 % MCV 95.5 fL MCH 31.1 pg MCHC 32.5 g/dL RDW 19.3 % Platelet Count 125 10 3/cmm MPV 10.0 fL Neutrophils 3.4 10 3/uL Lymphocytes 0.8 10 3/uL Monocytes 0.9 10 3/uL Eosinophils 0.1 10 3/uL Basophils 0.0 10 3/uL Neutrophil % 65.2 % Lymphocyte % 14.7 % Monocyte % 16.4 % Eosinophil % 1.0 % Basophils % 0.6 % Impression: 1. Patient with well to moderately differentiated adenocarcinoma of the rectum, by clinical evaluation stage IVC (T3, N2, M1c) with CT evidence of metastatic involvement in the peritoneum and liver. He has associated ascites. 2. He underwent chemoradiation utilizing capecitabine for chemosensitization following initial diagnosis of the rectal cancer in May 2019. 3. CT-directed needle biopsy of right peritoneal mass on 11/21/2019 confirmed adenocarcinoma consistent with colorectal primary. The tumor was confirmed to be MSI stable and KRAS wild-type. His other medical illnesses include: 4. Hypertension. 5. GERD. On 11/29/2019 he began cycle 1 of palliative chemotherapy with modified FOLFOX in combination with panitumumab. He was able to tolerate it with acceptable toxicity and he then continued treatment at 2-week intervals. During subsequent follow-up there was significant improvement in his clinical status. Side effects with the treatment had included neutropenia and skin eruption. He had only minimal neuropathy. Beginning with cycle 6, on 02/06/2020, he was given a 1 level reduction in the oxaliplatin dosage and a 20% reduction in the 5-FU dosage due to thrombocytopenia. The panitumumab was put on hold due to worsening skin eruption. He continued with his cycle 7 treatment on 02/20/2020. He continues to show gradual improvement in his performance status. His skin eruption has pretty much resolved since stopping the panitumumab. He continues to have just mild neuropathy. Overall, he is doing well clinically. Plan: He will continue with his 8th cycle of treatment. The dosages will remain the same. The panitumumab will be restarted at a reduced dosage of 4 mg/kg by IV infusion. He returns in 2 weeks. Signed By: Tiago Edwards M.D. <<Signature on File>>
== END 2020-03-13 23:59 | disposition home or self-care (01) ==
LOC: ONCMED 06:46
PROVIDERS: Family Provider Family Medicine; PCP Family Medicine; Visit Provider Internal Medicine Medical Oncology
DX: Z51.11 Encounter for antineoplastic chemotherapy (principal); C20 Malignant neoplasm of rectum; C78.6 Secondary malignant neoplasm of retroperitoneum and peritoneum; D70.1 Agranulocytosis secondary to cancer chemotherapy; D69.59 Other secondary thrombocytopenia; I10 Essential (primary) hypertension; K21.9 Gastro-esophageal reflux disease without esophagitis; Z79.899 Other long term (current) drug therapy
CPT/HCPCS: 36415; 80053; 85025; 96367; 96368; 96413; 96415; 96416; 96417; 96523; 99214; J0640; J1100; J1200; J2469; J3490; J7050; J9263; J9303

== ENCOUNTER 2020-04-04 06:47 | Outpatient (RCR) | payer MEDICARE, OTHER, SELFPAY ==
--- NOTE | 2020-03-14 | CT_ITS ---
WS: [id number] CT ABDOMEN PELVIS TECHNIQUE: Contrast-enhanced CT of the abdomen and pelvis with coronal and sagittal reformatted image s. CLINICAL INFORMATION: F/U COMPARISON: CT October 29, 2019 May 10, 2019. PET/CT November 10, 2019. DLP: 1145.[address] scans at [facility] use at least one of these dose optimization techniques: automat ed exposure control; mA and/or kV adjustment per patient size (includes targeted exams where dose is matched to clinical indication); or iterative reconstruction. FINDINGS:Stable lobulated stable right hepatic cyst along the undersurface of the liver measuring 2.6 cm. Previously described enhancing metastatic lesion in the dome the liver has essentially resolved with a tiny amount of residual low-attenuation sequelae measuring 3 mm. No new metastatic lesions in the liver. Improved but residual thickening involving the distal sigmoid colon and rectum Abdominal ascites and omental carcinomatosis has improved/resolved. No significant ascites today. Minimal residual indurati on in the omentum. Mild diffuse fatty infiltration of the liver. Normal portal vein and splenic vein. Normal gallbladder . Normal spleen. Normal pancreas. Adrenal glands are normal. Normal renal parenchymal enhancement. Sm all left renal cysts. Lung bases are well aerated. Normal caliber abdominal aorta. Aortic calcificati on. Sigmoid diverticulosis. No evidence of small or large bowel obstruction. Mild diffuse bladder wall th ickening can be seen with chronic cystitis. Prostate calcification. No free fluid in the pelvis. No a bdominal or pelvic lymphadenopathy. No inguinal lymphadenopathy. Fat-containing inguinal hernia. CT/CT abdomen pelvis w con* [id number] IMPRESSION: 1. Compared to the prior examinations evidence of interval response to therapy with no evidence of disease progression today. 2. Resolution of the previously described ascites and omental carcinomatosis. 3. Previously described metastatic lesion in the dome of the liver has essenti ally resolved. 4. Residual circumferential thickening involving the distal sigmoid colon and rectum consistent with known neoplasm. 5. No progressed abdominal or pelvic lymphadenopathy. 6. Sigmoid diverticulosis. 7. Mild diffuse bladder wall thickening can be seen with chronic cystitis. 8. Stable hepatic cyst along the undersurface of the right hepatic lobe.
[2020-03-14] MEDS: iohexol 300 mg/mL 50 mL Btl PO (12:54)
[2020-03-14] MEDS: iohexol 300 mg/mL 100 mL Btl IV (13:50)
[2020-03-18 15:07] LABS: Basophils % 0.3 %; Eosinophils # 0.1 10^3/uL (0.0-0.8); Eosinophils % 1.5 %; Hematocrit 51.4 % (42.0-52.0); Hemoglobin 16.4 g/dL (11.7-16.6); Lymphocytes # 0.5 10^3/uL (0.8-4.8); Lymphocytes % 7.8 %; Mean Corpuscular HGB Conc 31.9 g/dL (30.0-36.0); Mean Corpuscular Hemoglobin 31.7 pg (28.0-34.0); Mean Corpuscular Volume 99.4 fL (80-94); Mean Platelet Volume 11.6 fL (7.4-10.4); Monocytes # 0.9 10^3/uL (0.2-0.9); Monocytes % 13.7 %; Neutrophils # 5.1 10^3/uL (1.8-7.7); Nucleated Red Blood Cells % 0 %; Platelet Count 94 10^3/cmm (130-400); Red Blood Count 5.17 10^6/uL (4.1-5.3); Red Cell Distribution Width 18.1 % (12.1-15.1); White Blood Count 6.8 10^3/uL (4.0-10.0)
[2020-03-18 15:32] LABS: Alanine Aminotransferase 60 U/L (0-41); Albumin Level 4.3 g/dL (3.5-5.2); Alkaline Phosphatase 125 IU/L (40-130); Anion Gap 16.4 (5-19); Aspartate Amino Transferase 48 U/L (0-40); Blood Urea Nitrogen 13 mg/dL (8-23); Calcium 9.9 mg/dL (8.5-10.5); Carbon Dioxide 28 mmol/L (22-29); Chloride 101 mmol/L (98-107); Glomerular Filtration Rate 112.8 mL/min (90-130); Glucose 87 mg/dL (65-115); Osmolality Calculated 288 mOsm/kg (285-295); Potassium 4.4 mmol/L (3.5-5.1); Sodium 141 mmol/L (136-145); Total Bilirubin 1.8 mg/dL (0.15-1.2); Total Protein 7.3 g/dL (6.6-8.7)
[2020-03-19] MEDS: acetaminophen 325 mg Tablet 650 MG PO (09:27)
[2020-03-19] MEDS: dextrose 5% 250 ML 75 ML (09:30)
--- NOTE | 2020-03-22 10:43 | ONC FU_ITS ---
Dr. Edwards Patient Follow-Up Note Patient: Mick Fritz Unit #: [id number]: [id number] Dicatated By: Tiago Edwards M.D.Date of Visit:March 19, 2020 Onc Med Follow-up/Prog Note Chief Complaint: Rectal cancer. 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 In April 2019 he had been referred to Dr. Altamirano for excision of a skin lesion on his chest. He also was in need of screening colonoscopy. The skin lesion turned out to be a basal cell carcinoma. The colonoscopy showed a pedunculated polyp in the descending colon which was able to be removed endoscopically. Also noted was a malignant appearing mass involving two thirds of the circumference at the first rectal fold. 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 The rectal biopsy showed tubulovillous adenoma with focal high-grade dysplasia. As it was clearly a malignant appearing lesion, he then underwent sigmoidoscopy with a repeat biopsy on 05/15/2019. Pathology at that time was consistent with well to moderately differentiated adenocarcinoma. CT abdomen pelvis showed circumferential perirectal soft tissue thickening consistent with rectal neoplasm. Also noted was left perirectal lymphadenopathy and aortocaval lymphadenopathy consistent with metastatic disease with the largest aortocaval node measuring 2.0 cm and the left perirectal node measuring 2.2 cm. He was referred to Dr. Otto in [place] for further management, and he then undergo neoadjuvant chemoradiation utilizing capecitabine for chemosensitization. He apparently was lost to follow-up there after completing the radiation. He was admitted to [facility] on 10/29/2019 after presenting to the emergency room with abdominal pain and swelling. His CT abdomen/pelvis showed evidence of abundant ascites and omental carcinomatosis. There was abnormal wall thickening and enhancement of the loops of small bowel, possibly reflecting enteritis, but concerning for neoplastic infiltration of the wall of the loops of bowel. An apple core type lesion with marked wall thickening and narrowing was noted in the distal sigmoid colon/rectum. A new ill-defined 2 cm nodule in the dome of the liver was new and suspicious for metastatic disease. On 10/30/2019 he underwent paracentesis with removal of 2000 mL of fluid. The cytology was negative. I had seen him initially on 11/02/2019. At that point he was still in pretty good performance status. Biopsy was recommended to confirm the histology of his disease, particularly with the pattern of metastatic involvement and the fact that his CEA level was normal. As the liver lesion was not accessible for needle biopsy, he underwent CT directed needle biopsy of a peritoneal mass on 11/21/2019. Pathology has just become available, and it does show metastatic adenocarcinoma, CDX 2 positive, consistent with colonic primary. In the meantime, a next generation sequencing study had been requested on his primary tumor. It showed the tumor to be MSI stable and KRAS wild type. His other medical illnesses include hypertension and GERD. He has a remote history of smoking a pack of cigarettes daily for about 10 years. He had quit smoking cigarettes sometime in his early 20s, but he has continued smoking a cigar about 3 times a week. INTERIM HISTORY: On 11/29/2019 he began cycle 1 of palliative chemotherapy with modified FOLFOX in combination with panitumumab. At that point he had very poor oral intake and very marginal performance status. He required IV fluid support, but he was able to tolerate the treatment without significant acute toxicity. By day 5 he was neutropenic, but he recovered uneventfully with Neupogen. He began to show gradual improvement in his symptoms. He was then able to continue treatment at 2-week intervals with Neulasta administered prophylactically. He began his 6th cycle of treatment on 02/06/2020. At that point he was given a 1 level reduction in the oxaliplatin dosage and a 20% reduction in the 5-FU dosage due to thrombocytopenia. The panitumumab was put on hold due to worsening skin eruption. He continue with his cycle 7 treatment on 02/20/2020. He tolerated it well. With cycle 8, on 03/05/2020, I did restart the panitumumab at a reduced dosage of 4 mg/kg. Restaging CT of the abdomen/pelvis on 03/14/2020 showed evidence of interval response to therapy with resolution of previously described ascites and omental carcinomatosis. Also noted was resolution of the metastatic lesion in the dome of the liver. There was residual circumferential thickening involving the distal sigmoid colon and rectum. There was no evidence of disease progression. He is seen for a scheduled visit. He says that since his last treatment there were a couple of days where he did not feel good at all. However, by yesterday he was feeling great again. He has had recurrence of the skin rash, but it is not really bothering him. His appetite has been good. He does not have fever or night sweats. He has had no mouth sores. He has no shortness of breath, cough, or chest pain. He has no GI complaints other than a little bit of heartburn. He still has frequent urination. He has no significant joint or bone pain. He has some mild cold sensitivity for a few days after he finishes chemotherapy. He has no other neuropathy symptoms. Medications: Acyclovir 1 Tablet (of 400 mg) Oral daily, amLODIPine Besylate 1 (10 mg) Tablet Oral daily, Dexamethasone (4 mg) Tablet Oral Take as Directed, Lomotil 1 Tablet (of 2.5-0.025 mg) Oral PRN, Omeprazole 1 (20 mg) Capsule Delayed Release Oral daily, Tamsulosin HCl 1 Capsule (of 0.4 mg) Oral daily Allergies: No Known Allergies. Review of Systems: Constitutional - He says he did not feel good at all for couple of days. His energy otherwise has been good and he has had good appetite. No fever, chills, hot flashes, or night sweats. ECOG score is 1, ENMT - No sinus congestion/drainage. No mouth sores. No sore throat or difficulty swallowing, Hematologic/Lymphatic - He has some bruising, Respiratory - No shortness of breath. No cough. No pleuritic pain or hemoptysis, Cardiovascular - No angina pain. No palpitations, Gastrointestinal - No nausea or vomiting. He has a little bit of heartburn. No diarrhea or constipation. No blood in the stool or black stools, Genitourinary (M) - No dysuria or hematuria. He has some urinary frequency. No urgency or incontinence, Musculoskeletal - No joint or bone pain, Integumentary - His skin rash has recurred, but it doesn't bother him, Neurologic - No headache or dizziness. He has mild cold sensitivity for a few days after treatment. He has no other neuropathy symptoms, Psychiatric - No anxiety or depression. No insomnia. Vital Signs: Performed on March 19, 2020 08:38 Height - 70.00 in Weight - 183.6 lbs (LOW) BSA - 2.01 sq.m BMI - 26.34 Temperature - 97.6 F (LOW) Pulse - 88 /min Respiration - 20 /min BP - 140/92 mm(hg) O2 Sat - 99 % Pain - 0 Physical Examination: Constitutional - He looks pretty good generally, Eyes - Sclerae nonicteric. Conjunctivae clear, ENMT - No lesions noted in the oral cavity, Hematologic/Lymphatic - No cervical, clavicular, or axillary adenopathy, Respiratory - Lungs are clear with good air movement bilaterally, Cardiovascular - Heart rhythm is regular. There is no murmur, gallop, or rub noted, Abdomen - Mildly distended but soft. Liver and spleen are not enlarged. There is no abdominal mass noted and there is no inguinal adenopathy, Extremities - No edema. He has a few scattered purpuric lesions, Integumentary - The skin eruption has recurred, mainly in the facial area, Neurologic - No focal neurologic deficits noted. Lab/Imaging: Test performed on March 18, 2020 09:20 Sodium 141 mmol/L Potassium 4.4 mmol/L Chloride 101 mmol/L CO2 28 mmol/L Anion Gap 16.4 BUN 13 mg/dL Creatinine 0.7 mg/dL Cr Clearance (Est) 124.2800 mL/min eGFR 112.8 mL/min Glucose 87 mg/dL Calcium 9.9 mg/dL Protein, Total 7.3 g/dL Albumin 4.3 g/dL Globulin 3.0 g/dL Bilirubin, Total 1.8 mg/dL ALT (SGPT) 60 U/L AST (SGOT) 48 U/L Alkaline Phosphatase 125 IU/L WBC 6.8 10 3/uL RBC 5.17 10 6/uL HGB 16.4 g/dL HCT 51.4 % MCV 99.4 fL MCH 31.7 pg MCHC 31.9 g/dL RDW 18.1 % Platelet Count 94 10 3/cmm MPV 11.6 fL Neutrophils 5.1 10 3/uL Lymphocytes 0.5 10 3/uL Monocytes 0.9 10 3/uL Eosinophils 0.1 10 3/uL Basophils 0.0 10 3/uL Neutrophil % 76.0 % Lymphocyte % 7.8 % Monocyte % 13.7 % Eosinophil % 1.5 % Basophils % 0.3 % Impression: 1. Patient with well to moderately differentiated adenocarcinoma of the rectum, by clinical evaluation stage IVC (T3, N2, M1c) with CT evidence of metastatic involvement in the peritoneum and liver. He has associated ascites. 2. He underwent chemoradiation utilizing capecitabine for chemosensitization following initial diagnosis of the rectal cancer in May 2019. 3. CT-directed needle biopsy of right peritoneal mass on 11/21/2019 confirmed adenocarcinoma consistent with colorectal primary. The tumor was confirmed to be MSI stable and KRAS wild-type. His other medical illnesses include: 4. Hypertension. 5. GERD. On 11/29/2019 he began cycle 1 of palliative chemotherapy with modified FOLFOX in combination with panitumumab. He was able to tolerate it with acceptable toxicity and he then continued treatment at 2-week intervals. During subsequent follow-up there was significant improvement in his clinical status. Side effects with the treatment had included neutropenia and skin eruption. He had only minimal neuropathy. Beginning with cycle 6, on 02/06/2020, he was given a 1 level reduction in the oxaliplatin dosage and a 20% reduction in the 5-FU dosage due to thrombocytopenia. The panitumumab was put on hold due to worsening skin eruption. He continued with his cycle 8 treatment on 03/05/2020. With that cycle, the panitumumab was restarted at a reduced dosage of 4 mg/kg. Since then he has had recurrence of the skin eruption, but he says it is not really bothering him. He is otherwise tolerating the treatment well, and overall he has been doing very well clinically. He does have evidence of significant response by restaging CT scan. Plan: He will continue with his 9th cycle of treatment. The dosages will remain the same. The panitumumab will be continued at 4 mg/kg. He returns in 2 weeks. Signed By: Tiago Edwards M.D. <<Signature on File>>
[2020-04-01 10:47] LABS: Basophils % 0.4 %; Eosinophils # 0.1 10^3/uL (0.0-0.8); Eosinophils % 1.6 %; Hemoglobin 15.7 g/dL (11.7-16.6); Lymphocytes # 0.7 10^3/uL (0.8-4.8); Lymphocytes % 12.1 %; Mean Corpuscular HGB Conc 32.7 g/dL (30.0-36.0); Mean Corpuscular Hemoglobin 32.1 pg (28.0-34.0); Mean Corpuscular Volume 98.2 fL (80-94); Mean Platelet Volume 10.9 fL (7.4-10.4); Monocytes # 0.9 10^3/uL (0.2-0.9); Monocytes % 15.3 %; Neutrophils % 69.9 %; Nucleated Red Blood Cells % 0 %; Platelet Count 112 10^3/cmm (130-400); Red Blood Count 4.89 10^6/uL (4.1-5.3); Red Cell Distribution Width 15.6 % (12.1-15.1); White Blood Count 5.7 10^3/uL (4.0-10.0)
[2020-04-01 11:08] LABS: Alanine Aminotransferase 47 U/L (0-41); Albumin Level 4.4 g/dL (3.5-5.2); Alkaline Phosphatase 133 IU/L (40-130); Anion Gap 18.6 (5-19); Aspartate Amino Transferase 39 U/L (0-40); Blood Urea Nitrogen 11 mg/dL (8-23); Calcium 8.9 mg/dL (8.5-10.5); Carbon Dioxide 25 mmol/L (22-29); Chloride 100 mmol/L (98-107); Globulin 2.3 g/dL (1.3-4.6); Glomerular Filtration Rate 112.8 mL/min (90-130); Glucose 92 mg/dL (65-115); Osmolality Calculated 286 mOsm/kg (285-295); Potassium 3.6 mmol/L (3.5-5.1); Sodium 140 mmol/L (136-145); Total Bilirubin 1.2 mg/dL (0.15-1.2); Total Protein 6.7 g/dL (6.6-8.7)
[2020-04-02] MEDS: dextrose 5% 250 ML 75 ML (10:10)
[2020-04-02] MEDS: acetaminophen 325 mg Tablet 650 MG PO (10:12)
--- NOTE | 2020-04-07 14:44 | ONC FU_ITS ---
[facility] Patient Note Patient: Mick Fritz Unit #: [id number]: 1955 Dictated By: Jose R YeungDate of Visit: April 02, 2020 Onc MED Follow-Up/Prog Note Chief Complaint: Rectal cancer. 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 In April 2019 he had been referred to Dr. Altamirano for excision of a skin lesion on his chest. He also was in need of screening colonoscopy. The skin lesion turned out to be a basal cell carcinoma. The colonoscopy showed a pedunculated polyp in the descending colon which was able to be removed endoscopically. Also noted was a malignant appearing mass involving two thirds of the circumference at the first rectal fold. 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 The rectal biopsy showed tubulovillous adenoma with focal high-grade dysplasia. As it was clearly a malignant appearing lesion, he then underwent sigmoidoscopy with a repeat biopsy on 05/15/2019. Pathology at that time was consistent with well to moderately differentiated adenocarcinoma. CT abdomen pelvis showed circumferential perirectal soft tissue thickening consistent with rectal neoplasm. Also noted was left perirectal lymphadenopathy and aortocaval lymphadenopathy consistent with metastatic disease with the largest aortocaval node measuring 2.0 cm and the left perirectal node measuring 2.2 cm. He was referred to Dr. Otto in [place] for further management, and he then undergo neoadjuvant chemoradiation utilizing capecitabine for chemosensitization. He apparently was lost to follow-up there after completing the radiation. He was admitted to [facility] on 10/29/2019 after presenting to the emergency room with abdominal pain and swelling. His CT abdomen/pelvis showed evidence of abundant ascites and omental carcinomatosis. There was abnormal wall thickening and enhancement of the loops of small bowel, possibly reflecting enteritis, but concerning for neoplastic infiltration of the wall of the loops of bowel. An apple core type lesion with marked wall thickening and narrowing was noted in the distal sigmoid colon/rectum. A new ill-defined 2 cm nodule in the dome of the liver was new and suspicious for metastatic disease. On 10/30/2019 he underwent paracentesis with removal of 2000 mL of fluid. The cytology was negative. Dr Edwards had seen him initially on 11/02/2019. At that point he was still in pretty good performance status. Biopsy was recommended to confirm the histology of his disease, particularly with the pattern of metastatic involvement and the fact that his CEA level was normal. As the liver lesion was not accessible for needle biopsy, he underwent CT directed needle biopsy of a peritoneal mass on 11/21/2019. Pathology has just become available, and it does show metastatic adenocarcinoma, CDX 2 positive, consistent with colonic primary. In the meantime, a next generation sequencing study had been requested on his primary tumor. It showed the tumor to be MSI stable and KRAS wild type. His other medical illnesses include hypertension and GERD. He has a remote history of smoking a pack of cigarettes daily for about 10 years. He had quit smoking cigarettes sometime in his early 20s, but he has continued smoking a cigar about 3 times a week. INTERIM HISTORY: On 11/29/2019 he began cycle 1 of palliative chemotherapy with modified FOLFOX in combination with panitumumab. At that point he had very poor oral intake and very marginal performance status. He required IV fluid support, but he was able to tolerate the treatment without significant acute toxicity. By day 5 he was neutropenic, but he recovered uneventfully with Neupogen. He began to show gradual improvement in his symptoms. He was then able to continue treatment at 2-week intervals with Neulasta administered prophylactically. He began his 6th cycle of treatment on 02/06/2020. At that point he was given a 1 level reduction in the oxaliplatin dosage and a 20% reduction in the 5-FU dosage due to thrombocytopenia. The panitumumab was put on hold due to worsening skin eruption. He continue with his cycle 7 treatment on 02/20/2020. He tolerated it well. With cycle 8, on 03/05/2020, Dr Edwards did restart the panitumumab at a reduced dosage of 4 mg/kg. Restaging CT of the abdomen/pelvis on 03/14/2020 showed evidence of interval response to therapy with resolution of previously described ascites and omental carcinomatosis. Also noted was resolution of the metastatic lesion in the dome of the liver. There was residual circumferential thickening involving the distal sigmoid colon and rectum. There was no evidence of disease progression. Mr. Fritz is here today for follow-up. He is due for cycle 10 FOLFOX/vectibix. He states overall he is doing well. He denies any diarrhea. He states his energy is fair he is eating well. He has had no fever or chills or any signs of infection for at least the last 72 hours. He denies any nausea. He states that his legs are tired at times right after the oxalic [employer] and that last about 10 days. He is also had some cold-induced neuropathy that last about the same length of time but he states it is not getting any worse. He has had recurrence of the rash from the vectibix. He states he thinks it might of gotten a little bit worse after the last treatment but nothing real dramatic. He did reveal that he had been working out in the yard. We discussed that the Vectibix is very sun sensitive and that this could worsen his rash. Advised him to use of SPF 30 at least and to wear a hat and sleeves if possible. He states he has been using the cream for the rash and does not think it is helping. He has not had oral antibiotics in the past for the rash but does not want to try them right now as he thinks the rash is not getting any worse and is tolerable . He states he did increase the Flomax as per Dr. Edwards's instructions and was having to get up every 2 hours. He states he has stopped it completely on since then he can get up every 3-4 hours, urinate fine on return back to sleep. He states he feels much better off the Flomax. His ECOG is 1. Past Medical History: Gastroesophageal reflux disease Hypertension Rectal cancer Past Surgical History: Liver biopsy Tonsillectomy Left side porthacatheter placement dr. altamirano in 2019 Sigmoidoscopy with biopsy of rectal mass in 2019 Colonoscopy in 2019 Excision of basal cell skin cancer in 2019 Allergies: No Known Allergies. Medications: Acyclovir 1 Tablet (of 400 mg) Oral daily amLODIPine Besylate 1 (10 mg) Tablet Oral daily Dexamethasone (4 mg) Tablet Oral Take as Directed Lomotil 1 Tablet (of 2.5-0.025 mg) Oral PRN Loratadine 1 Tablet (of 10 mg) Oral PRN LORazepam 0.5 - 1 Tablet (of 1 mg) Oral t.i.d. PRN Omeprazole 1 (20 mg) Capsule Delayed Release Oral daily oxyCODONE HCl 1 Tablet (of 10 mg) Oral q 4 hours PRN Prochlorperazine Maleate 1 Tablet (of 10 mg) Oral q 4 hours PRN Family History: Mr. Fritz's mother is alive. Mr. Fritz's father at age 92: heart disease, and type II diabetes. Mr. Fritz has 1 brother who is alive. He has 1 sister who is alive. Mother still living at age 89. Father with heart disease at age 92. He also had diabetes. A maternal aunt had breast cancer. His maternal grandfather had lung cancer. Social History: Mr. 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 Mr. Fritz quit smoking 46 years ago but had smoked 1.0 pack/day for 12 years. He drinks occasionally. He consumes 2 drinks/day 3 days/week. He has indicated exposure to the following products: cigars. Mr. Fritz reports the following support systems: lives with spouse, significant other, family, or friends and adequate transportation available for expected visits. His diet consists of regular meals. He indicates his activity level as: light exercise. 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 He has a history of smoking 1 pack of cigarettes daily for 10 years, but he had quit by sometime in his early 20s. He smokes a cigar about 3 times a week. Alcohol use averages 2 beers 3 days a week. Review Of Symptoms: Constitutional Denies fevers, chills, night sweats, excessive fatigue or weight loss. Allergic/Immunologic No reactions. Eyes Denies significant visual changes. No diplopia. No amaurosis. ENMT Denies changes in hearing, sore throat, mouth sores, difficulty or changes in swallowing ability, and/or sinus drainage. Hematologic/Lymphatic Denies easy bruising or bleeding. The patient denies any tender or palpable lymph nodes. Respiratory Denies dyspnea on exertion, chest pain, cough or hemoptysis. Denies orthopnea. Cardiovascular Denies anginal chest pain, palpitations or orthopnea. Gastrointestinal Denies current nausea, vomiting, diarrhea, GI bleeding, or constipation. Denies change in bowel habits and/or stool color, no heartburn or early satiety. Genitourinary (M) Denies hematuria, dysuria, increased frequency, urgency, hesitancy or incontinence. Musculoskeletal Denies joint pain, swelling or redness. No decreased range of motion. Integumentary Denies chronic rashes, inflammation, ulcerations or skin changes. Skin is very dry but responds to lotions. He states he lotions at bedtime. Neurologic Denies headache, blurred vision, and no areas of focal weakness or numbness. Normal gait. No sensory problems. Psychiatric Denies insomnia, depression, jeanette or mood swings. Vital Signs: Performed on April 02, 2020 09:20 Height - 70.00 in Weight - 188.4 lbs (HIGH) BSA - 2.03 sq.m BMI - 27.03 Temperature - 97.58 F (LOW) Pulse - 74 /min Respiration - 18 /min BP - 144/94 mm(hg) (HIGH) O2 Sat - 96 % Pain - 0,1 - No physically strenuous activity, but ambulatory and able to carry out light or sedentary work (e.g. office work, light house work). (ECOG) Physical Examination: Constitutional Alert, oriented, no acute distress. Skin pink, warm and dry. Head Normocephalic; atraumatic. Eyes Conjunctivae and sclerae are clear and without icterus. Pupils are reactive and equal. ENMT No oral exudates, ulcers, masses, thrush or mucositis. Oropharynx clear. Tongue normal. Neck Supple without masses or thyromegaly. No jugular venous distension. Hematologic/Lymphatic No petechiae or purpura. No tender or palpable lymph nodes in the cervical or supraclavicular areas. Respiratory Lungs are clear to auscultation without rhonchi or wheezing. Cardiovascular Regular rate and rhythm of heart without murmurs,clicks, gallops or rubs. Abdomen Non-tender, non-distended, no masses or ascites. Good bowel sounds noted in all quads. No guarding or rebound tenderness. No pulsatile masses. Back/Spine Non-tender to palpation. Extremities No visible deformities, no cyanosis, clubbing or edema. Musculoskeletal No tenderness or swelling, normal range of motion without obvious weakness. Integumentary No rashes or lesions. Skin is noted to be dry but not flaking at present. Evidence of scratching on right forearms. Mild healed acne formed rash around nose. Neurologic No sensory or motor deficits, normal cerebellar function, normal gait. Psychiatric Alert and oriented times three. Coherent speech. Verbalizes understanding of our discussions today. Laboratory:Test performed on March 18, 2020 09:20 Sodium 141 mmol/L Potassium 4.4 mmol/L Chloride 101 mmol/L CO2 28 mmol/L Anion Gap 16.4 BUN 13 mg/dL Creatinine 0.7 mg/dL Cr Clearance (Est) 124.2800 mL/min eGFR 112.8 mL/min Glucose 87 mg/dL Calcium 9.9 mg/dL Protein, Total 7.3 g/dL Albumin 4.3 g/dL Globulin 3.0 g/dL Bilirubin, Total 1.8 mg/dL ALT (SGPT) 60 U/L AST (SGOT) 48 U/L Alkaline Phosphatase 125 IU/L WBC 6.8 10 3/uL RBC 5.17 10 6/uL HGB 16.4 g/dL HCT 51.4 % MCV 99.4 fL MCH 31.7 pg MCHC 31.9 g/dL RDW 18.1 % Platelet Count 94 10 3/cmm MPV 11.6 fL Neutrophils 5.1 10 3/uL Lymphocytes 0.5 10 3/uL Monocytes 0.9 10 3/uL Eosinophils 0.1 10 3/uL Basophils 0.0 10 3/uL Neutrophil % 76.0 % Lymphocyte % 7.8 % Monocyte % 13.7 % Eosinophil % 1.5 % Basophils % 0.3 % Test performed on Dec 25, 2019 09:21 Manual Bands % 34.0 % Manual Lymphs % 5 % Manual Monos % 6.0 % Metamyelocytes % 6.0 % Myelocytes % 1.0 % CBC Slide Review Slide Review Perform Manual Bands Abs 3.8 10 3/cmm Manual Monocytes Abs 0.7 10 3/cmm Manual Eosinophils Abs 0.4 10 3/cmm Test performed on Dec 03, 2019 09:36 Manual Eosinophils 1.1 % Manual Basophils 0.5 % NRBCs 0.0 /100 WBC Test performed on Nov 28, 2019 12:54 PT 15.10 sec INR 1.15 Test performed on Nov 02, 2019 11:50 CEA 0.9 ng/mL Impression: 1. Patient with well to moderately differentiated adenocarcinoma of the rectum, by clinical evaluation stage IVC (T3, N2, M1c) with CT evidence of metastatic involvement in the peritoneum and liver. He has associated ascites. 2. He underwent chemoradiation utilizing capecitabine for chemosensitization following initial diagnosis of the rectal cancer in May 2019. 3. [address]-directed needle biopsy of right peritoneal mass on 11/21/2019 confirmed adenocarcinoma consistent with colorectal primary. The tumor was confirmed to be MSI stable and KRAS wild-type. His other medical illnesses include: 4. Hypertension. 5. GERD. On 11/29/2019 he began cycle 1 of palliative chemotherapy with modified FOLFOX in combination with panitumumab. He was able to tolerate it with acceptable toxicity and he then continued treatment at 2-week intervals. During subsequent follow-up there was significant improvement in his clinical status. Side effects with the treatment had included neutropenia and skin eruption. He had only minimal neuropathy. Beginning with cycle 6, on 02/06/2020, he was given a 1 level reduction in the oxaliplatin dosage and a 20% reduction in the 5-FU dosage due to thrombocytopenia. The panitumumab was put on hold due to worsening skin eruption. He continued with his cycle 8 treatment on 03/05/2020. With that cycle, the panitumumab was restarted at a reduced dosage of 4 mg/kg. Since then he has had recurrence of the skin eruption, but he says it is not really bothering him. He is otherwise tolerating the treatment well, and overall he has been doing very well clinically. He does have evidence of significant response by restaging CT scan. Plan: 1. Proceed with cycle 10 FOLFOX and vectibix. His dosing will remain the same. The panitumumab will be continued at 4 mg/kg. 2. Neulasta had been omitted earlier in his treatment plan and his neutrophils continue to hold well. 3. Remain off Flomax as he feels better off of it. 4. Labs from April 01, 2020 were reviewed in detail and discussed with Mr. Fritz and a copy was given to him. WBC 65.7, hemoglobin 15.7 platelets 112,000 ANC was 4000. Creatinine 0.7 LFTs are unremarkable. Potassium 3.6. 5. We discussed using the clindamycin cream or oral antibiotic for his vectibix rash which is mild on his face and chest and upper back. He states he does not want to pursue that just yet. He does promise if he gets worse he will call and we can try antibiotics then. He is advised to try to keep it moisturized and again to protect it from the sun when he is out. 6. We will have him return in 2 weeks with CBC CMP and CEA. I did not request an interim CBC as he states he appreciated having the week off and his labs have been stable. 7. Mr. Fritz was instructed to contact us in the interim should questions or problems arise. Signed By: Jose R Yeung-, CNP Tiago Edwards MD <<Signature on File>>
== END 2020-04-13 23:59 | disposition home or self-care (01) ==
LOC: ONCMED 06:47
PROVIDERS: Internal Medicine Medical Oncology; Family Provider Family Medicine; PCP Family Medicine; Visit Provider Nurse Practitioner
DX: Z51.11 Encounter for antineoplastic chemotherapy (principal); C20 Malignant neoplasm of rectum; C78.6 Secondary malignant neoplasm of retroperitoneum and peritoneum; D70.1 Agranulocytosis secondary to cancer chemotherapy; T45.1X5A Adverse effect of antineoplastic and immunosuppressive drugs, initial encounter; D69.59 Other secondary thrombocytopenia; K21.9 Gastro-esophageal reflux disease without esophagitis; I10 Essential (primary) hypertension; Z92.3 Personal history of irradiation; Z79.899 Other long term (current) drug therapy
CPT/HCPCS: 74177; 80053; 85025; 96367; 96368; 96413; 96415; 96416; 96417; 96523; 99214; J0640; J1100; J1200; J2469; J3490; J7050; J9263; J9303; Q9967

== ENCOUNTER 2020-05-13 06:48 | Outpatient (RCR) | payer MEDICARE, OTHER, SELFPAY ==
[2020-04-15 09:27] LABS: Basophils % 0.7 %; Eosinophils # 0.1 10^3/uL (0.0-0.8); Eosinophils % 2.4 %; Hematocrit 42.4 % (42.0-52.0); Hemoglobin 14.1 g/dL (11.7-16.6); Lymphocytes # 0.5 10^3/uL (0.8-4.8); Lymphocytes % 12.8 %; Mean Corpuscular HGB Conc 33.3 g/dL (30.0-36.0); Mean Corpuscular Hemoglobin 32.6 pg (28.0-34.0); Mean Corpuscular Volume 97.9 fL (80-94); Mean Platelet Volume 10.7 fL (7.4-10.4); Monocytes # 0.7 10^3/uL (0.2-0.9); Monocytes % 17.6 %; Neutrophils # 2.8 10^3/uL (1.8-7.7); Nucleated Red Blood Cells % 0 %; Platelet Count 117 10^3/cmm (130-400); Red Blood Count 4.33 10^6/uL (4.1-5.3); Red Cell Distribution Width 14.3 % (12.1-15.1); White Blood Count 4.2 10^3/uL (4.0-10.0)
[2020-04-15 09:47] LABS: Anion Gap 12.6 (5-19); Blood Urea Nitrogen 7 mg/dL (8-23); Carbon Dioxide 26 mmol/L (22-29); Chloride 106 mmol/L (98-107); Glomerular Filtration Rate 134.8 mL/min (90-130); Glucose 98 mg/dL (65-115); Magnesium 1.7 mg/dL (1.7-2.3); Osmolality Calculated 288 mOsm/kg (285-295); Potassium 3.6 mmol/L (3.5-5.1); Sodium 141 mmol/L (136-145)
[2020-04-16] MEDS: acetaminophen 325 mg Tablet 650 MG PO (09:12)
[2020-04-16] MEDS: dextrose 5% 250 ML 75 ML (09:12)
[2020-04-16 10:09] LABS: Thyroid Stimulating Hormone 1.42 uIU/mL (0.27-4.20)
--- NOTE | 2020-04-20 12:07 | ONC FU_ITS ---
[facility] Patient Note Patient: Mick Fritz Unit #: [id number]: 1955 Dictated By: Jose R YeungDate of Visit: Apr 16, 2020 Onc MED Follow-Up/Prog Note Chief Complaint: Rectal cancer. 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 In April 2019 he had been referred to Dr. Altamirano for excision of a skin lesion on his chest. He also was in need of screening colonoscopy. The skin lesion turned out to be a basal cell carcinoma. The colonoscopy showed a pedunculated polyp in the descending colon which was able to be removed endoscopically. Also noted was a malignant appearing mass involving two thirds of the circumference at the first rectal fold. 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 The rectal biopsy showed tubulovillous adenoma with focal high-grade dysplasia. As it was clearly a malignant appearing lesion, he then underwent sigmoidoscopy with a repeat biopsy on 05/15/2019. Pathology at that time was consistent with well to moderately differentiated adenocarcinoma. CT abdomen pelvis showed circumferential perirectal soft tissue thickening consistent with rectal neoplasm. Also noted was left perirectal lymphadenopathy and aortocaval lymphadenopathy consistent with metastatic disease with the largest aortocaval node measuring 2.0 cm and the left perirectal node measuring 2.2 cm. He was referred to Dr. Otto in [place] for further management, and he then undergo neoadjuvant chemoradiation utilizing capecitabine for chemosensitization. He apparently was lost to follow-up there after completing the radiation. He was admitted to [facility] on 10/29/2019 after presenting to the emergency room with abdominal pain and swelling. His CT abdomen/pelvis showed evidence of abundant ascites and omental carcinomatosis. There was abnormal wall thickening and enhancement of the loops of small bowel, possibly reflecting enteritis, but concerning for neoplastic infiltration of the wall of the loops of bowel. An apple core type lesion with marked wall thickening and narrowing was noted in the distal sigmoid colon/rectum. A new ill-defined 2 cm nodule in the dome of the liver was new and suspicious for metastatic disease. On 10/30/2019 he underwent paracentesis with removal of 2000 mL of fluid. The cytology was negative. Dr Edwards had seen him initially on 11/02/2019. At that point he was still in pretty good performance status. Biopsy was recommended to confirm the histology of his disease, particularly with the pattern of metastatic involvement and the fact that his CEA level was normal. As the liver lesion was not accessible for needle biopsy, he underwent CT directed needle biopsy of a peritoneal mass on 11/21/2019. Pathology has just become available, and it does show metastatic adenocarcinoma, CDX 2 positive, consistent with colonic primary. In the meantime, a next generation sequencing study had been requested on his primary tumor. It showed the tumor to be MSI stable and KRAS wild type. His other medical illnesses include hypertension and GERD. He has a remote history of smoking a pack of cigarettes daily for about 10 years. He had quit smoking cigarettes sometime in his early 20s, but he has continued smoking a cigar about 3 times a week. INTERIM HISTORY: On 11/29/2019 he began cycle 1 of palliative chemotherapy with modified FOLFOX in combination with panitumumab. At that point he had very poor oral intake and very marginal performance status. He required IV fluid support, but he was able to tolerate the treatment without significant acute toxicity. By day 5 he was neutropenic, but he recovered uneventfully with Neupogen. He began to show gradual improvement in his symptoms. He was then able to continue treatment at 2-week intervals with Neulasta administered prophylactically. He began his 6th cycle of treatment on 02/06/2020. At that point he was given a 1 level reduction in the oxaliplatin dosage and a 20% reduction in the 5-FU dosage due to thrombocytopenia. The panitumumab was put on hold due to worsening skin eruption. He continue with his cycle 7 treatment on 02/20/2020. He tolerated it well. With cycle 8, on 03/05/2020, Dr Edwards did restart the panitumumab at a reduced dosage of 4 mg/kg. Restaging CT of the abdomen/pelvis on 03/14/2020 showed evidence of interval response to therapy with resolution of previously described ascites and omental carcinomatosis. Also noted was resolution of the metastatic lesion in the dome of the liver. There was residual circumferential thickening involving the distal sigmoid colon and rectum. There was no evidence of disease progression. Mr. Fritz is here today for follow-up. He is due for cycle 11 FOLFOX/Vectibix. He states overall he is doing pretty good. He has had an increase in the rash. He states that it is on his chest, upper arms, face, neck and a little on his back. He states is not real itchy but he does notice that is more prominent than last visit. He states he has been trying the cream Dr. Edwards gave him some time back and does not think that it is helping a whole lot. He does state that he had been out working in the sun some. He denies any shortness of breath orthopnea. He denies any diarrhea or constipation. He states he has had no fever or chills. He has had no signs of infection for at least the last 72 hours. He states his appetite is good. He continues to be active around the house. He states he and his son are thinking of buying a sailboat. His ECOG is 1. Past Medical History: Gastroesophageal reflux disease Hypertension Rectal cancer Past Surgical History: Liver biopsy Tonsillectomy Left side porthacatheter placement dr. altamirano in 2019 Sigmoidoscopy with biopsy of rectal mass in 2019 Colonoscopy in 2019 Excision of basal cell skin cancer in 2019 Allergies: No Known Allergies. Medications: Acyclovir 1 Tablet (of 400 mg) Oral daily amLODIPine Besylate 1 (10 mg) Tablet Oral daily Dexamethasone (4 mg) Tablet Oral Take as Directed Lomotil 1 Tablet (of 2.5-0.025 mg) Oral PRN Loratadine 1 Tablet (of 10 mg) Oral PRN LORazepam 0.5 - 1 Tablet (of 1 mg) Oral t.i.d. PRN Omeprazole 1 (20 mg) Capsule Delayed Release Oral daily oxyCODONE HCl 1 Tablet (of 10 mg) Oral q 4 hours PRN Prochlorperazine Maleate 1 Tablet (of 10 mg) Oral q 4 hours PRN Tamsulosin HCl 1 Capsule (of 0.4 mg) Oral daily Family History: Mr. Fritz's mother is alive. Mr. Fritz's father at age 92: heart disease, and type II diabetes. Mr. Fritz has 1 brother who is alive. He has 1 sister who is alive. Mother still living at age 89. Father with heart disease at age 92. He also had diabetes. A maternal aunt had breast cancer. His maternal grandfather had lung cancer. Social History: Mr. 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 Mr. Fritz quit smoking 46 years ago but had smoked 1.0 pack/day for 12 years. He drinks occasionally. He consumes 2 drinks/day 3 days/week. He has indicated exposure to the following products: cigars. Mr. Fritz reports the following support systems: lives with spouse, significant other, family, or friends and adequate transportation available for expected visits. His diet consists of regular meals. He indicates his activity level as: light exercise. 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 He has a history of smoking 1 pack of cigarettes daily for 10 years, but he had quit by sometime in his early 20s. He smokes a cigar about 3 times a week. Alcohol use averages 2 beers 3 days a week. Review Of Symptoms: Constitutional Denies fevers, chills, night sweats, excessive fatigue or weight loss. No motivation for the last 2-3 days-tired. Denies fever or chills. Eyes Denies significant visual changes. No diplopia. No amaurosis. ENMT Denies changes in hearing, sore throat, mouth sores, difficulty or changes in swallowing ability, and/or sinus drainage. Hematologic/Lymphatic Denies easy bruising or bleeding. The patient denies any tender or palpable lymph nodes. Respiratory Denies dyspnea on exertion, chest pain, cough or hemoptysis. Denies orthopnea. Cardiovascular Denies anginal chest pain, palpitations or orthopnea. Gastrointestinal Denies current nausea, vomiting, diarrhea, GI bleeding, or constipation. Denies change in bowel habits and/or stool color, no heartburn or early satiety. Genitourinary (M) Denies hematuria, dysuria, increased frequency, urgency, hesitancy or incontinence. Musculoskeletal Denies joint pain, swelling or redness. No decreased range of motion. Integumentary vectibix rash face, neck, chest-mild to moderate-no pustules noted today. Neurologic Denies headache, blurred vision, and no areas of focal weakness or numbness. Normal gait. No sensory problems. Psychiatric Denies insomnia, depression, jeanette or mood swings. Vital Signs: Performed on Apr 16, 2020 08:36 Height - 70.00 in Weight - 187.6 lbs (LOW) BSA - 2.03 sq.m BMI - 26.92 Temperature - 98.0 F (LOW) Pulse - 92 /min Respiration - 18 /min BP - 145/104 mm(hg) (HIGH) O2 Sat - 97 % Pain - 0,1 - No physically strenuous activity, but ambulatory and able to carry out light or sedentary work (e.g. office work, light house work). (ECOG) Physical Examination: Constitutional Alert, oriented, no acute distress. Skin pink, warm and dry. Head Normocephalic; atraumatic. Eyes Conjunctivae and sclerae are clear and without icterus. Pupils are reactive and equal. ENMT No oral exudates, ulcers, masses, thrush or mucositis. Oropharynx clear. Tongue normal. Neck Supple without masses or thyromegaly. No jugular venous distension. Hematologic/Lymphatic No petechiae or purpura. No tender or palpable lymph nodes in the cervical or supraclavicular areas. Respiratory Lungs are clear to auscultation without rhonchi or wheezing. Cardiovascular Regular rate and rhythm of heart without murmurs,clicks, gallops or rubs. Chest scattered red maculopapular rash on anterior chest. Mild without pustules at present. Abdomen Non-tender, non-distended, no masses or ascites. Good bowel sounds noted in all quads. No guarding or rebound tenderness. No pulsatile masses. Back/Spine Non-tender to palpation. Extremities No visible deformities, no cyanosis, clubbing or edema. Musculoskeletal No tenderness or swelling, normal range of motion without obvious weakness. Integumentary maculopapular rash from Vectibix on face, neck, chest and arms. Some progression since last visit, but no pustules noted at present. He has not been using the Clindamycin cream. Neurologic No sensory or motor deficits, normal cerebellar function, normal gait. Psychiatric Alert and oriented times three. Coherent speech. Verbalizes understanding of our discussions today. Laboratory:Test performed on Apr 15, 2020 08:35 TSH 1.42 uIU/mL Test performed on Apr 15, 2020 08:25 Magnesium 1.7 mg/dL Sodium 141 mmol/L Potassium 3.6 mmol/L Chloride 106 mmol/L CO2 26 mmol/L Anion Gap 12.6 Glucose 98 mg/dL BUN 7 mg/dL Creatinine 0.6 mg/dL Cr Clearance (Est) 144.9900 mL/min eGFR 134.8 mL/min Calcium 9.0 mg/dL WBC 4.2 10 3/uL RBC 4.33 10 6/uL HGB 14.1 g/dL HCT 42.4 % MCV 97.9 fL MCH 32.6 pg MCHC 33.3 g/dL RDW 14.3 % Platelet Count 117 10 3/cmm MPV 10.7 fL Neutrophils 2.8 10 3/uL Lymphocytes 0.5 10 3/uL Monocytes 0.7 10 3/uL Eosinophils 0.1 10 3/uL Basophils 0.0 10 3/uL Neutrophil % 66.0 % Lymphocyte % 12.8 % Monocyte % 17.6 % Eosinophil % 2.4 % Basophils % 0.7 % Impression: 1. Patient with well to moderately differentiated adenocarcinoma of the rectum, by clinical evaluation stage IVC (T3, N2, M1c) with CT evidence of metastatic involvement in the peritoneum and liver. He has associated ascites. 2. He underwent chemoradiation utilizing capecitabine for chemosensitization following initial diagnosis of the rectal cancer in May 2019. 3[address]-directed needle biopsy of right peritoneal mass on 11/21/2019 confirmed adenocarcinoma consistent with colorectal primary. The tumor was confirmed to be MSI stable and KRAS wild-type. His other medical illnesses include: 4. Hypertension. 5. GERD. On 11/29/2019 he began cycle 1 of palliative chemotherapy with modified FOLFOX in combination with panitumumab. He was able to tolerate it with acceptable toxicity and he then continued treatment at 2-week intervals. During subsequent follow-up there was significant improvement in his clinical status. Side effects with the treatment had included neutropenia and skin eruption. He had only minimal neuropathy. Beginning with cycle 6, on 02/06/2020, he was given a 1 level reduction in the oxaliplatin dosage and a 20% reduction in the 5-FU dosage due to thrombocytopenia. The panitumumab was put on hold due to worsening skin eruption. He continued with his cycle 8 treatment on 03/05/2020. With that cycle, the panitumumab was restarted at a reduced dosage of 4 mg/kg. Since then he has had recurrence of the skin eruption, but he says it is not really bothering him. He is otherwise tolerating the treatment well, and overall he has been doing very well clinically. He does have evidence of significant response by restaging CT scan. Plan: 1. Proceed with cycle 11 FOLFOX and vectibix. His dosing will remain the same. The panitumumab will be continued at 4 mg/kg. 2. Neulasta had been omitted earlier in his treatment plan and his neutrophils continue to hold well. 3. Resume treatment of Vectibix induced rash with Clindamycin cream BID. Advised to utilize sunscreen of at least a SPF of 30; wearing sleeves and covering head with wide brimmed hat while in the sun. 4. Labs from April 15, 2020 were reviewed in detail and discussed with Mr. Fritz and a copy was given to him. WBC 4.2, hemoglobin 14.1 platelets 117,000 ANC was 2800. Creatinine 0.6. Magnesium 1.7 Potassium 3.6. 5. We discussed using the clindamycin cream or oral antibiotic for his vectibix rash which is mild on his face and chest and upper back. He states he will resume the cream and he was instructed to call us if the rash gets worse and we can try oral antibiotics then. He is advised to try to keep it moisturized and again to protect it from the sun when he is out. I did go ahead and call in oral antibiotics. I did send in doxycycline 100 mg twice daily #60 with 1 refill. He will pick it up if he feels that he needs it. 6. We will have him return in 2 weeks with CBC CMP and CEA. I did not request an interim CBC as he states he appreciated having the week off and his labs have been stable. 7. Mr. Fritz was instructed to contact us in the interim should questions or problems arise. Signed By: Jose R Yeung-, ANGEL Edwards MD <<Signature on File>>
[2020-04-29 10:38] LABS: Basophils % 0.9 %; Eosinophils # 0.1 10^3/uL (0.0-0.8); Hematocrit 45.4 % (42.0-52.0); Hemoglobin 15.1 g/dL (11.7-16.6); Lymphocytes # 0.5 10^3/uL (0.8-4.8); Lymphocytes % 11.8 %; Mean Corpuscular HGB Conc 33.3 g/dL (30.0-36.0); Mean Corpuscular Hemoglobin 32.1 pg (28.0-34.0); Mean Corpuscular Volume 96.4 fL (80-94); Monocytes # 0.7 10^3/uL (0.2-0.9); Monocytes % 16.2 %; Neutrophils # 3.1 10^3/uL (1.8-7.7); Neutrophils % 68.4 %; Nucleated Red Blood Cells % 0 %; Platelet Count 89 10^3/cmm (130-400); Red Blood Count 4.71 10^6/uL (4.1-5.3); Red Cell Distribution Width 14.6 % (12.1-15.1); White Blood Count 4.6 10^3/uL (4.0-10.0)
[2020-04-29 10:55] LABS: Carcinoembryonic Antigen 2.1 ng/mL (0.0-4.7)
[2020-04-29 11:06] LABS: Alanine Aminotransferase 52 U/L (0-41); Albumin Level 3.8 g/dL (3.5-5.2); Alkaline Phosphatase 173 IU/L (40-130); Anion Gap 17.6 (5-19); Aspartate Amino Transferase 50 U/L (0-40); Blood Urea Nitrogen 7 mg/dL (8-23); Carbon Dioxide 23 mmol/L (22-29); Chloride 104 mmol/L (98-107); Globulin 2.6 g/dL (1.3-4.6); Glomerular Filtration Rate 134.8 mL/min (90-130); Glucose 129 mg/dL (65-115); Osmolality Calculated 290 mOsm/kg (285-295); Potassium 3.6 mmol/L (3.5-5.1); Sodium 141 mmol/L (136-145); Total Bilirubin 1.4 mg/dL (0.15-1.2); Total Protein 6.4 g/dL (6.6-8.7)
[2020-04-30] MEDS: acetaminophen 325 mg Tablet 650 MG PO (10:00)
[2020-04-30] MEDS: dextrose 5% 250 ML 75 ML IV (10:00)
--- NOTE | 2020-04-30 14:35 | ONC FU_ITS ---
[facility] Patient Note Patient: Mick Fritz Unit #: [id number]: 1955 Dictated By: Jose R YeungDate of Visit: Apr 30, 2020 Onc MED Follow-Up/Prog Note Chief Complaint: Rectal cancer. 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 In April 2019 he had been referred to Dr. Altamirano for excision of a skin lesion on his chest. He also was in need of screening colonoscopy. The skin lesion turned out to be a basal cell carcinoma. The colonoscopy showed a pedunculated polyp in the descending colon which was able to be removed endoscopically. Also noted was a malignant appearing mass involving two thirds of the circumference at the first rectal fold. 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 The rectal biopsy showed tubulovillous adenoma with focal high-grade dysplasia. As it was clearly a malignant appearing lesion, he then underwent sigmoidoscopy with a repeat biopsy on 05/15/2019. Pathology at that time was consistent with well to moderately differentiated adenocarcinoma. CT abdomen pelvis showed circumferential perirectal soft tissue thickening consistent with rectal neoplasm. Also noted was left perirectal lymphadenopathy and aortocaval lymphadenopathy consistent with metastatic disease with the largest aortocaval node measuring 2.0 cm and the left perirectal node measuring 2.2 cm. He was referred to Dr. Otto in [place] for further management, and he then undergo neoadjuvant chemoradiation utilizing capecitabine for chemosensitization. He apparently was lost to follow-up there after completing the radiation. He was admitted to [facility] on 10/29/2019 after presenting to the emergency room with abdominal pain and swelling. His CT abdomen/pelvis showed evidence of abundant ascites and omental carcinomatosis. There was abnormal wall thickening and enhancement of the loops of small bowel, possibly reflecting enteritis, but concerning for neoplastic infiltration of the wall of the loops of bowel. An apple core type lesion with marked wall thickening and narrowing was noted in the distal sigmoid colon/rectum. A new ill-defined 2 cm nodule in the dome of the liver was new and suspicious for metastatic disease. On 10/30/2019 he underwent paracentesis with removal of 2000 mL of fluid. The cytology was negative. Dr Edwards had seen him initially on 11/02/2019. At that point he was still in pretty good performance status. Biopsy was recommended to confirm the histology of his disease, particularly with the pattern of metastatic involvement and the fact that his CEA level was normal. As the liver lesion was not accessible for needle biopsy, he underwent CT directed needle biopsy of a peritoneal mass on 11/21/2019. Pathology has just become available, and it does show metastatic adenocarcinoma, CDX 2 positive, consistent with colonic primary. In the meantime, a next generation sequencing study had been requested on his primary tumor. It showed the tumor to be MSI stable and KRAS wild type. His other medical illnesses include hypertension and GERD. He has a remote history of smoking a pack of cigarettes daily for about 10 years. He had quit smoking cigarettes sometime in his early 20s, but he has continued smoking a cigar about 3 times a week. INTERIM HISTORY: On 11/29/2019 he began cycle 1 of palliative chemotherapy with modified FOLFOX in combination with panitumumab. At that point he had very poor oral intake and very marginal performance status. He required IV fluid support, but he was able to tolerate the treatment without significant acute toxicity. By day 5 he was neutropenic, but he recovered uneventfully with Neupogen. He began to show gradual improvement in his symptoms. He was then able to continue treatment at 2-week intervals with Neulasta administered prophylactically. He began his 6th cycle of treatment on 02/06/2020. At that point he was given a 1 level reduction in the oxaliplatin dosage and a 20% reduction in the 5-FU dosage due to thrombocytopenia. The panitumumab was put on hold due to worsening skin eruption. He continue with his cycle 7 treatment on 02/20/2020. He tolerated it well. With cycle 8, on 03/05/2020, Dr Edwards did restart the panitumumab at a reduced dosage of 4 mg/kg. Restaging CT of the abdomen/pelvis on 03/14/2020 showed evidence of interval response to therapy with resolution of previously described ascites and omental carcinomatosis. Also noted was resolution of the metastatic lesion in the dome of the liver. There was residual circumferential thickening involving the distal sigmoid colon and rectum. There was no evidence of disease progression. Mr. Fritz is here today for follow-up. He is due for cycle 12 FOLFOX/Vectibix. He states he is doing good. He feels better over the last 2-3 days and it is time for treatment again . He states he mowed all day yesterday . [place] has [place] and has tolerated these activities well. He denies any new concerns today. He denies any mouth sores sore throat or difficulty swallowing. He states he is eating good. He states other than having some fatigue overall he is feeling good. He denies any constipation. He states he did have for 5 days of diarrhea but thought it was something that he ate. We discussed that it could be related to the chemotherapy and that if it recurs with this treatment he will deftly need to use Imodium. We did talk significantly about dehydration as he so active and the weather is warming up. I did encourage him to use sunscreen while out and about as well. He does have vectibix rash but is dramatically improved this week. He denies any urinary changes. He denies any neuropathy. His ECOG is 0. Past Medical History: Gastroesophageal reflux disease Hypertension Rectal cancer Past Surgical History: Liver biopsy Tonsillectomy Left side porthacatheter placement dr. altamirano in 2019 Sigmoidoscopy with biopsy of rectal mass in 2019 Colonoscopy in 2019 Excision of basal cell skin cancer in 2019 Allergies: No Known Allergies. Medications: Acyclovir 1 Tablet (of 400 mg) Oral daily amLODIPine Besylate 1 (10 mg) Tablet Oral daily Dexamethasone (4 mg) Tablet Oral Take as Directed Lomotil 1 Tablet (of 2.5-0.025 mg) Oral PRN Loratadine 1 Tablet (of 10 mg) Oral PRN LORazepam 0.5 - 1 Tablet (of 1 mg) Oral t.i.d. PRN oxyCODONE HCl 1 Tablet (of 10 mg) Oral q 4 hours PRN Prochlorperazine Maleate 1 Tablet (of 10 mg) Oral q 4 hours PRN Family History: Mr. Fritz's mother is alive. Mr. Fritz's father at age 92: heart disease, and type II diabetes. Mr. Fritz has 1 brother who is alive. He has 1 sister who is alive. Mother still living at age 89. Father with heart disease at age 92. He also had diabetes. A maternal aunt had breast cancer. His maternal grandfather had lung cancer. 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 Mr. Fritz quit smoking 46 years ago but had smoked 1.0 pack/day for 12 years. He drinks occasionally. He consumes 2 drinks/day 3 days/week. He has indicated exposure to the following products: cigars. Mr. Fritz reports the following support systems: lives with spouse, significant other, family, or friends and adequate transportation available for expected visits. His diet consists of regular meals. He indicates his activity level as: light exercise. 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 He has a history of smoking 1 pack of cigarettes daily for 10 years, but he had quit by sometime in his early 20s. He smokes a cigar about 3 times a week. Alcohol use averages 2 beers 3 days a week. Review Of Symptoms: Constitutional Denies fevers, chills, night sweats, excessive fatigue or weight loss. Denies fever or chills. Allergic/Immunologic No reactions. Eyes Denies significant visual changes. No diplopia. No amaurosis. ENMT Denies changes in hearing, sore throat, mouth sores, difficulty or changes in swallowing ability, and/or sinus drainage. Hematologic/Lymphatic Denies easy bruising or bleeding. The patient denies any tender or palpable lymph nodes. Respiratory Denies dyspnea on exertion, chest pain, cough or hemoptysis. Denies orthopnea. Cardiovascular Denies anginal chest pain, palpitations or orthopnea. Gastrointestinal Denies current nausea, vomiting, diarrhea, GI bleeding, or constipation. Denies change in bowel habits and/or stool color, no heartburn or early satiety. Genitourinary (M) Denies hematuria, dysuria, increased frequency, urgency, hesitancy or incontinence. Musculoskeletal Denies joint pain, swelling or redness. No decreased range of motion. Integumentary vectibix rash to chest-mild to moderate-no pustules noted today. Neurologic Denies headache, blurred vision, and no areas of focal weakness or numbness. Normal gait. No sensory problems. Psychiatric Denies insomnia, depression, jeanette or mood swings. Vital Signs: Performed on Apr 30, 2020 09:21 Height - 70.00 in Weight - 187.0 lbs (LOW) BSA - 2.03 sq.m BMI - 26.83 Temperature - 96.9 F (LOW) Pulse - 78 /min Respiration - 16 /min BP - 126/90 mm(hg) O2 Sat - 96 % Pain - 0,0 - Fully active, able to carry on all predisease activities without restrictions. (ECOG) Physical Examination: Constitutional Alert, oriented, no acute distress. Skin pink, warm and dry. Head Normocephalic; atraumatic. Eyes Conjunctivae and sclerae are clear and without icterus. Pupils are reactive and equal. Neck Supple without masses or thyromegaly. No jugular venous distension. Hematologic/Lymphatic No petechiae or purpura. No tender or palpable lymph nodes in the cervical or supraclavicular areas. Respiratory Lungs are clear to auscultation without rhonchi or wheezing. Cardiovascular Regular rate and rhythm of heart without murmurs,clicks, gallops or rubs. Chest scattered red maculopapular rash on anterior chest. Mild without pustules at present. Abdomen Non-tender, non-distended, no masses or ascites. ++. No guarding or rebound tenderness. No pulsatile masses. Back/Spine Non-tender to palpation. Extremities No visible deformities, no cyanosis, clubbing or edema. Musculoskeletal No tenderness or swelling, normal range of motion without obvious weakness. Integumentary maculopapular rash from Vectibix chest. Vastly improved since last visit, no pustules noted at present. Neurologic No sensory or motor deficits, normal cerebellar function, normal gait. Psychiatric Alert and oriented times three. Coherent speech. Verbalizes understanding of our discussions today. Laboratory:Test performed on Apr 15, 2020 08:35 TSH 1.42 uIU/mL Test performed on Apr 15, 2020 08:25 Magnesium 1.7 mg/dL Sodium 141 mmol/L Potassium 3.6 mmol/L Chloride 106 mmol/L CO2 26 mmol/L Anion Gap 12.6 Glucose 98 mg/dL BUN 7 mg/dL Creatinine 0.6 mg/dL Cr Clearance (Est) 144.9900 mL/min eGFR 134.8 mL/min Calcium 9.0 mg/dL WBC 4.2 10 3/uL RBC 4.33 10 6/uL HGB 14.1 g/dL HCT 42.4 % MCV 97.9 fL MCH 32.6 pg MCHC 33.3 g/dL RDW 14.3 % Platelet Count 117 10 3/cmm MPV 10.7 fL Neutrophils 2.8 10 3/uL Lymphocytes 0.5 10 3/uL Monocytes 0.7 10 3/uL Eosinophils 0.1 10 3/uL Basophils 0.0 10 3/uL Neutrophil % 66.0 % Lymphocyte % 12.8 % Monocyte % 17.6 % Eosinophil % 2.4 % Basophils % 0.7 % Test performed on April 01, 2020 08:00 Protein, Total 6.7 g/dL Albumin 4.4 g/dL Globulin 2.3 g/dL Bilirubin, Total 1.2 mg/dL ALT (SGPT) 47 U/L AST (SGOT) 39 U/L Alkaline Phosphatase 133 IU/L Test performed on Dec 25, 2019 09:21 Manual Bands % 34.0 % Manual Lymphs % 5 % Manual Monos % 6.0 % Metamyelocytes % 6.0 % Myelocytes % 1.0 % CBC Slide Review Slide Review Perform Manual Bands Abs 3.8 10 3/cmm Manual Monocytes Abs 0.7 10 3/cmm Manual Eosinophils Abs 0.4 10 3/cmm Test performed on Dec 03, 2019 09:36 Manual Eosinophils 1.1 % Manual Basophils 0.5 % NRBCs 0.0 /100 WBC Test performed on Nov 28, 2019 12:54 PT 15.10 sec INR 1.15 Test performed on Nov 02, 2019 11:50 CEA 0.9 ng/mL Impression: 1. Patient with well to moderately differentiated adenocarcinoma of the rectum, by clinical evaluation stage IVC (T3, N2, M1c) with CT evidence of metastatic involvement in the peritoneum and liver. He has associated ascites. 2. He underwent chemoradiation utilizing capecitabine for chemosensitization following initial diagnosis of the rectal cancer in May 2019. 3. [address]-directed needle biopsy of right peritoneal mass on 11/21/2019 confirmed adenocarcinoma consistent with colorectal primary. The tumor was confirmed to be MSI stable and KRAS wild-type. His other medical illnesses include: 4. Hypertension. 5. GERD. On 11/29/2019 he began cycle 1 of palliative chemotherapy with modified FOLFOX in combination with panitumumab. He was able to tolerate it with acceptable toxicity and he then continued treatment at 2-week intervals. During subsequent follow-up there was significant improvement in his clinical status. Side effects with the treatment had included neutropenia and skin eruption. He had only minimal neuropathy. Beginning with cycle 6, on 02/06/2020, he was given a 1 level reduction in the oxaliplatin dosage and a 20% reduction in the 5-FU dosage due to thrombocytopenia. The panitumumab was put on hold due to worsening skin eruption. He continued with his cycle 8 treatment on 03/05/2020. With that cycle, the panitumumab was restarted at a reduced dosage of 4 mg/kg. Since then he has had recurrence of the skin eruption, but he says it is not really bothering him. He is otherwise tolerating the treatment well, and overall he has been doing very well clinically. He does have evidence of significant response by restaging CT scan. Mr Fritz will complete cycle 12 FOLFOX/Vectibix after hiis treatment today. Plan: 1. Proceed with cycle 12 FOLFOX and vectibix. His dosing will remain the same. The panitumumab will be continued at 4 mg/kg. 2. Neulasta had been omitted earlier in his treatment plan and his neutrophils continue to hold well. 3. Continue treatment of Vectibix induced rash with Clindamycin cream BID. Advised to utilize sunscreen of at least a SPF of 30; wearing sleeves and covering head with wide brimmed hat while in the sun. 4. Labs from April 28, 2020 were reviewed in detail and discussed with Mr. Fritz and a copy was given to him. WBC 4.6, hemoglobin 15.1 platelets 89,000 ANC was 3100. Creatinine 0.6. Potassium 3.6. .CEA 2.1 5. We did discuss further treatment plan after completion of 12 cycles of FOLFOX/Vectibix: possibly continuing single agent Vectibix; 5FU/Vectibix or just 5FU. He will followup with Dr Edwards in 2 weeks and they will discuss his future treatment plan further. 6. We will have him return in 2 weeks with CBC CMP and CEA. 7. Mr. Fritz was instructed to contact us in the interim should questions or problems arise. Signed By: Jose R Yeung-, [facility] Tiago Edwards MD <<Signature on File>>
[2020-05-12 13:49] LABS: Basophils % 0.4 %; Eosinophils # 0.1 10^3/uL (0.0-0.8); Hematocrit 44.5 % (42.0-52.0); Hemoglobin 14.9 g/dL (11.7-16.6); Lymphocytes # 0.6 10^3/uL (0.8-4.8); Lymphocytes % 11.1 %; Mean Corpuscular HGB Conc 33.5 g/dL (30.0-36.0); Mean Corpuscular Hemoglobin 32.5 pg (28.0-34.0); Mean Corpuscular Volume 97.2 fL (80-94); Mean Platelet Volume 10.2 fL (7.4-10.4); Monocytes # 0.8 10^3/uL (0.2-0.9); Neutrophils # 3.4 10^3/uL (1.8-7.7); Neutrophils % 68.9 %; Nucleated Red Blood Cells % 0 %; Platelet Count 98 10^3/cmm (130-400); Red Blood Count 4.58 10^6/uL (4.1-5.3); Red Cell Distribution Width 14.4 % (12.1-15.1); White Blood Count 4.9 10^3/uL (4.0-10.0)
[2020-05-12 14:39] LABS: Alanine Aminotransferase 53 U/L (0-41); Alkaline Phosphatase 196 IU/L (40-130); Anion Gap 16.5 (5-19); Aspartate Amino Transferase 49 U/L (0-40); Blood Urea Nitrogen 10 mg/dL (8-23); Calcium 9.1 mg/dL (8.5-10.5); Carbon Dioxide 24 mmol/L (22-29); Chloride 104 mmol/L (98-107); Globulin 2.5 g/dL (1.3-4.6); Glomerular Filtration Rate 112.8 mL/min (90-130); Glucose 140 mg/dL (65-115); Osmolality Calculated 290 mOsm/kg (285-295); Potassium 3.5 mmol/L (3.5-5.1); Sodium 141 mmol/L (136-145); Total Bilirubin 1.4 mg/dL (0.15-1.2); Total Protein 6.5 g/dL (6.6-8.7)
[2020-05-12 15:08] LABS: Carcinoembryonic Antigen 2.7 ng/mL (0.0-4.7)
[2020-05-13] MEDS: sodium chloride 0.9% (100 ml) 100 ML 75 ML (09:35)
[2020-05-13] MEDS: acetaminophen 325 mg Tablet 650 MG PO (09:35)
--- NOTE | 2020-05-16 10:02 | ONC FU_ITS ---
Dr. Edwards Patient Follow-Up Note Patient: Mick Fritz Unit #: [id number]: [id number] Dicatated By: Tiago Edwards M.D.Date of Visit:May 13, 2020 Onc Med Follow-up/Prog Note Chief Complaint: Rectal cancer. 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 In April 2019 he had been referred to Dr. Altamirano for excision of a skin lesion on his chest. He also was in need of screening colonoscopy. The skin lesion turned out to be a basal cell carcinoma. The colonoscopy showed a pedunculated polyp in the descending colon which was able to be removed endoscopically. Also noted was a malignant appearing mass involving two thirds of the circumference at the first rectal fold. 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 The rectal biopsy showed tubulovillous adenoma with focal high-grade dysplasia. As it was clearly a malignant appearing lesion, he then underwent sigmoidoscopy with a repeat biopsy on 05/15/2019. Pathology at that time was consistent with well to moderately differentiated adenocarcinoma. CT abdomen pelvis showed circumferential perirectal soft tissue thickening consistent with rectal neoplasm. Also noted was left perirectal lymphadenopathy and aortocaval lymphadenopathy consistent with metastatic disease with the largest aortocaval node measuring 2.0 cm and the left perirectal node measuring 2.2 cm. He was referred to Dr. Otto in [place] for further management, and he then undergo neoadjuvant chemoradiation utilizing capecitabine for chemosensitization. He apparently was lost to follow-up there after completing the radiation. He was admitted to [facility] on 10/29/2019 after presenting to the emergency room with abdominal pain and swelling. His CT abdomen/pelvis showed evidence of abundant ascites and omental carcinomatosis. There was abnormal wall thickening and enhancement of the loops of small bowel, possibly reflecting enteritis, but concerning for neoplastic infiltration of the wall of the loops of bowel. An apple core type lesion with marked wall thickening and narrowing was noted in the distal sigmoid colon/rectum. A new ill-defined 2 cm nodule in the dome of the liver was new and suspicious for metastatic disease. On 10/30/2019 he underwent paracentesis with removal of 2000 mL of fluid. The cytology was negative. I had seen him initially on 11/02/2019. At that point he was still in pretty good performance status. Biopsy was recommended to confirm the histology of his disease, particularly with the pattern of metastatic involvement and the fact that his CEA level was normal. As the liver lesion was not accessible for needle biopsy, he underwent CT directed needle biopsy of a peritoneal mass on 11/21/2019. Pathology has just become available, and it does show metastatic adenocarcinoma, CDX 2 positive, consistent with colonic primary. In the meantime, a next generation sequencing study had been requested on his primary tumor. It showed the tumor to be MSI stable and KRAS wild type. His other medical illnesses include hypertension and GERD. He has a remote history of smoking a pack of cigarettes daily for about 10 years. He had quit smoking cigarettes sometime in his early 20s, but he has continued smoking a cigar about 3 times a week. INTERIM HISTORY: On 11/29/2019 he began cycle 1 of palliative chemotherapy with modified FOLFOX in combination with panitumumab. At that point he had very poor oral intake and very marginal performance status. He required IV fluid support, but he was able to tolerate the treatment without significant acute toxicity. By day 5 he was neutropenic, but he recovered uneventfully with Neupogen. He began to show gradual improvement in his symptoms. He was then able to continue treatment at 2-week intervals with Neulasta administered prophylactically. He began his 6th cycle of treatment on 02/06/2020. At that point he was given a 1 level reduction in the oxaliplatin dosage and a 20% reduction in the 5-FU dosage due to thrombocytopenia. The panitumumab was put on hold due to worsening skin eruption. He continued with his cycle 7 treatment on 02/20/2020. He tolerated it well. With cycle 8, on 03/05/2020, I did restart the panitumumab at a reduced dosage of 4 mg/kg. Restaging CT of the abdomen/pelvis on 03/14/2020 showed evidence of interval response to therapy with resolution of previously described ascites and omental carcinomatosis. Also noted was resolution of the metastatic lesion in the dome of the liver. There was residual circumferential thickening involving the distal sigmoid colon and rectum. There was no evidence of disease progression. He continued with his 9th cycle of treatment on 03/19/2020. He is seen for a scheduled visit. He has now completed 12 cycles of treatment with modified FOLFOX in combination with panitumumab. He has been feeling pretty good generally, though he says he does not have a whole lot of energy. He is able to do light work. His ECOG score is 1. He has good appetite. He has no fever or night sweats. He has had no mouth sores, but he has had a few sores in his nose. He has no shortntess of breath, cough, or chest pain. He has no GI complaints other than some heartburn, which is managed pretty well with medication. Bladder function has been OK. He has no significant joint or bone pain. He has just mild cold sensitivity. He has no other neuropathy symptoms. His skin eruption is tolerable. Medications: Acyclovir 1 Tablet (of 400 mg) Oral daily, amLODIPine Besylate 1 (10 mg) Tablet Oral daily, Dexamethasone (4 mg) Tablet Oral Take as Directed, Lomotil 1 Tablet (of 2.5-0.025 mg) Oral PRN, Loratadine 1 Tablet (of 10 mg) Oral PRN, LORazepam 0.5 - 1 Tablet (of 1 mg) Oral t.i.d. PRN, oxyCODONE HCl 1 Tablet (of 10 mg) Oral q 4 hours PRN, Prochlorperazine Maleate 1 Tablet (of 10 mg) Oral q 4 hours PRN Allergies: No Known Allergies. Review of Systems: Constitutional - His energy level has been lower. He is able to do light work. His appetite is good and weight is stable. No fever, night sweats, or hot flashes. ECOG score is 1, ENMT - No sinus congestion/drainage. No mouth sores. No sore throat or difficulty swallowing, Hematologic/Lymphatic - He bruises easily, Respiratory - No shortness of breath. No cough. No pleuritic pain or hemoptysis, Cardiovascular - No angina pain. No palpitations, Gastrointestinal - No nausea or vomiting. His heartburn is adequately managed with pepcid. No diarrhea or constipation. No blood in the stool or black stools, Genitourinary (M) - No dysuria or hematuria. No urinary frequency. No urgency or incontinence, Musculoskeletal - No joint or bone pain, Integumentary - No skin complications, Neurologic - No headache. He had an episode of feeling off balance over this past weekend. He has mild cold sensitivity after chemotherapy. No other focal neurologic symptoms, Psychiatric - No anxiety or depression. No insomnia. Vital Signs: Performed on May 13, 2020 08:32 Height - 70.00 in Weight - 188.0 lbs (HIGH) BSA - 2.03 sq.m BMI - 26.98 Temperature - 98.3 F (LOW) Pulse - 74 /min Respiration - 20 /min BP - 133/93 mm(hg) O2 Sat - 97 % Pain - 0 Physical Examination: Constitutional - He looks pretty good generally, Eyes - Sclerae nonicteric. Conjunctivae clear, ENMT - No lesions noted in the oral cavity, Hematologic/Lymphatic - No cervical, clavicular, or axillary adenopathy, Respiratory - Lungs are clear with good air movement bilaterally, Cardiovascular - Heart rhythm is regular. There is no murmur, gallop, or rub noted, Abdomen - Mildly distended but soft. Liver and spleen are not enlarged. There is no abdominal mass noted and there is no inguinal adenopathy, Extremities - No edema. He has scattered purpuric lesions, Integumentary - He has residual skin eruption, mainly on the chest, Neurologic - No focal neurologic deficits noted. Lab/Imaging: CBC shows hemoglobin 14.9 g, white blood cell count 4900, and platelet count 98,000. Comprehensive metabolic profile shows mildly elevated liver enzymes and slightly elevated total bilirubin at 1.4 mg/dL. CEA is stable 2.7 ng/mL. Impression: 1. Patient with well to moderately differentiated adenocarcinoma of the rectum, by clinical evaluation stage IVC (T3, N2, M1c) with CT evidence of metastatic involvement in the peritoneum and liver. He has associated ascites. 2. He underwent chemoradiation utilizing capecitabine for chemosensitization following initial diagnosis of the rectal cancer in May 2019. 3[address]-directed needle biopsy of right peritoneal mass on 11/21/2019 confirmed adenocarcinoma consistent with colorectal primary. The tumor was confirmed to be MSI stable and KRAS wild-type. His other medical illnesses include: 4. Hypertension. 5. GERD. On 11/29/2019 he began cycle 1 of palliative chemotherapy with modified FOLFOX in combination with panitumumab. He was able to tolerate it with acceptable toxicity and he then continued treatment at 2-week intervals. During subsequent follow-up there was significant improvement in his clinical status. Side effects with the treatment had included neutropenia and skin eruption. He had only minimal neuropathy. Beginning with cycle 6, on 02/06/2020, he was given a 1 level reduction in the oxaliplatin dosage and a 20% reduction in the 5-FU dosage due to thrombocytopenia. The panitumumab was put on hold due to worsening skin eruption. He continued with his cycle 8 treatment on 03/05/2020. With that cycle, the panitumumab was restarted at a reduced dosage of 4 mg/kg. During subsequent followup the skin eruption has been tolerable, and he has otherwise tolerated the treatment very well. He has had evidence of significant response by restaging CT scan. He has now completed 12 cycles of treatment. Plan: I discussed some options for his further treatment. He will continue panitumumab will be continued at 4 mg/kg, but I will now stop the chemotherapy. He will return for treatment at a 2-week interval. He will be scheduled for a followup visit in 6 weeks. Signed By: Tiago Edwards M.D. <<Signature on File>>
== END 2020-05-13 23:59 | disposition home or self-care (01) ==
LOC: ONCMED 06:48
PROVIDERS: Nurse Practitioner; Family Provider Family Medicine; PCP Family Medicine; Visit Provider Internal Medicine Medical Oncology
DX: Z51.11 Encounter for antineoplastic chemotherapy (principal); Z45.2 Encounter for adjustment and management of vascular access device; C20 Malignant neoplasm of rectum; L27.0 Generalized skin eruption due to drugs and medicaments taken internally; T45.1X5A Adverse effect of antineoplastic and immunosuppressive drugs, initial encounter; I10 Essential (primary) hypertension; K21.9 Gastro-esophageal reflux disease without esophagitis; E78.5 Hyperlipidemia, unspecified; Z79.899 Other long term (current) drug therapy; Z87.891 Personal history of nicotine dependence; Z85.828 Personal history of other malignant neoplasm of skin
CPT/HCPCS: 36591; 80048; 80053; 82378; 83735; 84443; 85025; 96367; 96368; 96413; 96415; 96416; 96417; 96523; 99214; J0640; J1100; J1200; J2469; J3490; J7050; J9263; J9303

== ENCOUNTER 2020-06-10 06:49 | Outpatient (RCR) | payer MEDICARE, OTHER, SELFPAY ==
[2020-05-26 09:51] LABS: Basophils % 0.4 %; Eosinophils # 0.1 10^3/uL (0.0-0.8); Eosinophils % 2.7 %; Hematocrit 46.3 % (42.0-52.0); Hemoglobin 15.2 g/dL (11.7-16.6); Lymphocytes # 0.6 10^3/uL (0.8-4.8); Lymphocytes % 13.6 %; Mean Corpuscular HGB Conc 32.8 g/dL (30.0-36.0); Mean Corpuscular Hemoglobin 31.6 pg (28.0-34.0); Mean Corpuscular Volume 96.3 fL (80-94); Mean Platelet Volume 10.3 fL (7.4-10.4); Monocytes # 0.8 10^3/uL (0.2-0.9); Monocytes % 18.5 %; Neutrophils # 2.86 10^3/uL (1.8-7.7); Neutrophils % 63.9 %; Nucleated Red Blood Cells % 0 %; Platelet Count 120 10^3/cmm (130-400); Red Blood Count 4.81 10^6/uL (4.1-5.3); White Blood Count 4.5 10^3/uL (4.0-10.0)
[2020-05-26 10:01] LABS: Alanine Aminotransferase 51 U/L (0-41); Albumin Level 4.1 g/dL (3.5-5.2); Alkaline Phosphatase 184 IU/L (40-130); Anion Gap 12.6 (5-19); Aspartate Amino Transferase 47 U/L (0-40); Blood Urea Nitrogen 11 mg/dL (8-23); Calcium 9.1 mg/dL (8.5-10.5); Carbon Dioxide 26 mmol/L (22-29); Chloride 103 mmol/L (98-107); Globulin 2.3 g/dL (1.3-4.6); Glomerular Filtration Rate 112.8 mL/min (90-130); Glucose 98 mg/dL (65-115); Osmolality Calculated 282 mOsm/kg (285-295); Potassium 3.6 mmol/L (3.5-5.1); Sodium 138 mmol/L (136-145); Total Bilirubin 1.1 mg/dL (0.15-1.2); Total Protein 6.4 g/dL (6.6-8.7)
[2020-05-27] MEDS: sodium chloride 0.9% 250 ML IV (08:50)
[2020-05-27] MEDS: acetaminophen 325 mg Tablet 650 MG PO (08:50)
[2020-06-09 09:16] LABS: Basophils % 0.7 %; Eosinophils # 0.2 10^3/uL (0.0-0.8); Eosinophils % 4.4 %; Hematocrit 47.8 % (42.0-52.0); Lymphocytes # 0.6 10^3/uL (0.8-4.8); Lymphocytes % 14.5 %; Mean Corpuscular HGB Conc 33.5 g/dL (30.0-36.0); Mean Corpuscular Hemoglobin 31.9 pg (28.0-34.0); Mean Corpuscular Volume 95.4 fL (80-94); Mean Platelet Volume 9.8 fL (7.4-10.4); Monocytes # 0.6 10^3/uL (0.2-0.9); Monocytes % 13.6 %; Neutrophils # 2.87 10^3/uL (1.8-7.7); Neutrophils % 66.3 %; Nucleated Red Blood Cells % 0 %; Platelet Count 164 10^3/cmm (130-400); Red Blood Count 5.01 10^6/uL (4.1-5.3); Red Cell Distribution Width 13.8 % (12.1-15.1); White Blood Count 4.3 10^3/uL (4.0-10.0)
[2020-06-09 09:31] LABS: Alanine Aminotransferase 33 U/L (0-41); Albumin Level 4.4 g/dL (3.5-5.2); Alkaline Phosphatase 157 IU/L (40-130); Anion Gap 14.3 (5-19); Aspartate Amino Transferase 37 U/L (0-40); Blood Urea Nitrogen 9 mg/dL (8-23); Calcium 9.4 mg/dL (8.5-10.5); Carbon Dioxide 25 mmol/L (22-29); Chloride 103 mmol/L (98-107); Globulin 2.4 g/dL (1.3-4.6); Glomerular Filtration Rate 134.8 mL/min (90-130); Glucose 99 mg/dL (65-115); Osmolality Calculated 284 mOsm/kg (285-295); Potassium 3.3 mmol/L (3.5-5.1); Sodium 139 mmol/L (136-145); Total Bilirubin 1.6 mg/dL (0.15-1.2); Total Protein 6.8 g/dL (6.6-8.7)
[2020-06-10] MEDS: acetaminophen 325 mg Tablet 650 MG PO (08:40)
[2020-06-10] MEDS: sodium chloride 0.9% 250 ML IV (08:45)
== END 2020-06-13 23:59 | disposition home or self-care (01) ==
LOC: ONCMED 06:49
PROVIDERS: PCP Family Medicine; Visit Provider Internal Medicine Medical Oncology
DX: Z51.11 Encounter for antineoplastic chemotherapy (principal); C20 Malignant neoplasm of rectum; C78.6 Secondary malignant neoplasm of retroperitoneum and peritoneum
CPT/HCPCS: 36591; 80053; 85025; 96367; 96413; J1200; J3490; J7050; J9303

== ENCOUNTER 2020-07-08 05:40 | Outpatient (RCR) | payer MEDICARE, OTHER, SELFPAY ==
--- NOTE | 2020-06-20 | CT_ITS ---
WS: [id number] CT CHEST, ABDOMEN, AND PELVIS TECHNIQUE: Contrast-enhanced CT of the chest, abdomen, and pelvis with coronal and sagittal reformatt ed images. CLINICAL INFORMATION: MALIGNANT NEOPLASM OF RECTUM COMPARISON: PET CT . CT abdomen pelvis March 14, 2020. DLP: 2365.[address] scans at [facility] use at least one of these dose optimization techniques: automat ed exposure control; mA and/or kV adjustment per patient size (includes targeted exams where dose is matched to clinical indication); or iterative reconstruction. CT CHEST: Moderate chronic emphysematous changes. No acute pulmonary infiltrates. No focal consolidation or ple ural fluid. No suspicious pulmonary parenchymal abnormalities. Normal caliber thoracic aorta. No medi astinal or hilar lymphadenopathy. Nodular left thyroid gland with largest nodule measuring 2.2 CM. 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 No mediastinal or hilar lymphadenopathy. No axillary lymphadenopathy. Normal thoracic spine. CT ABDOMEN AND PELVIS: Stable hepatic cyst along the undersurface of the right hepatic lobe measuring 2.5 CM. No visualized enhancing metastatic lesions in the liver. Mild residual thickening involving the distal sigmoid colo n and rectum consistent with known neoplasm. Previously described omental carcinomatosis has resolved . Mild diffuse fatty infiltration of the liver. Normal portal vein and splenic vein. Normal gallbladder . Normal spleen. Normal pancreas. Adrenal glands are normal. Normal renal parenchymal enhancement. Sm all left renal cysts. Normal caliber abdominal aorta. Aortic calcification. Sigmoid diverticulosis. No evidence of small or large bowel obstruction. Mild diffuse bladder wall thickening can be seen with chronic cystitis. Pro state calcification. No free fluid in the pelvis. No abdominal or pelvic lymphadenopathy. No inguinal lymphadenopathy. CT/CT chest abd pel w con* IMPRESSION: 1. No evidence of metastatic disease in the chest abdomen or pelvis. 2. No adenopathy in the chest abdomen or pelvis. 3. Residual thickening involving the distal sigmoid colon and rectum is stable compared to previous consistent with known neoplasm 4. Diverticulosis. No evidence of acute diverticulitis. 5. Stable hepatic cyst. 6. Mild diffuse fatty infiltration liver.
[2020-06-20] MEDS: iohexol 300 mg/mL 50 mL Btl PO (09:35)
[2020-06-20] MEDS: iohexol 300 mg/mL 100 mL Btl IV (11:08)
[2020-06-23 08:50] LABS: Basophils % 0.8 %; Eosinophils # 0.1 10^3/uL (0.0-0.8); Eosinophils % 3.3 %; Hematocrit 43.3 % (42.0-52.0); Hemoglobin 14.2 g/dL (11.7-16.6); Lymphocytes # 0.5 10^3/uL (0.8-4.8); Lymphocytes % 13.3 %; Mean Corpuscular HGB Conc 32.8 g/dL (30.0-36.0); Mean Corpuscular Hemoglobin 31.1 pg (28.0-34.0); Mean Corpuscular Volume 94.7 fL (80-94); Mean Platelet Volume 10.1 fL (7.4-10.4); Monocytes # 0.6 10^3/uL (0.2-0.9); Monocytes % 15.5 %; Neutrophils % 66.5 %; Nucleated Red Blood Cells % 0 %; Platelet Count 147 10^3/cmm (130-400); Red Blood Count 4.57 10^6/uL (4.1-5.3); Red Cell Distribution Width 13.5 % (12.1-15.1); White Blood Count 3.6 10^3/uL (4.0-10.0)
[2020-06-23 09:14] LABS: Carcinoembryonic Antigen 1.9 ng/mL (0.0-4.7)
[2020-06-23 09:25] LABS: Alanine Aminotransferase 33 U/L (0-41); Albumin Level 3.9 g/dL (3.5-5.2); Alkaline Phosphatase 142 IU/L (40-130); Anion Gap 11.6 (5-19); Aspartate Amino Transferase 34 U/L (0-40); Blood Urea Nitrogen 11 mg/dL (8-23); Calcium 8.3 mg/dL (8.5-10.5); Carbon Dioxide 26 mmol/L (22-29); Chloride 106 mmol/L (98-107); Globulin 2.4 g/dL (1.3-4.6); Glomerular Filtration Rate 134.4 mL/min (90-130); Glucose 110 mg/dL (65-115); Osmolality Calculated 287 mOsm/kg (285-295); Potassium 3.6 mmol/L (3.5-5.1); Sodium 140 mmol/L (136-145); Total Bilirubin 1.5 mg/dL (0.15-1.2); Total Protein 6.3 g/dL (6.6-8.7)
[2020-06-24] MEDS: sodium chloride 0.9% 250 ML 75 ML IV (10:15)
[2020-06-24] MEDS: acetaminophen 325 mg Tablet 650 MG PO (10:16)
--- NOTE | 2020-06-24 21:12 | ONC FU_ITS ---
Dr. Edwards Patient Follow-Up Note Patient: Mick Fritz Unit #: [id number]: 1955 Dicatated By: Tiago Edwards M.D.Date of Visit:Jun 24, 2020 Onc Med Follow-up/Prog Note Chief Complaint: Rectal cancer. 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 In April 2019 he had been referred to Dr. Altamirano for excision of a skin lesion on his chest. He also was in need of screening colonoscopy. The skin lesion turned out to be a basal cell carcinoma. The colonoscopy showed a pedunculated polyp in the descending colon which was able to be removed endoscopically. Also noted was a malignant appearing mass involving two thirds of the circumference at the first rectal fold. 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 The rectal biopsy showed tubulovillous adenoma with focal high-grade dysplasia. As it was clearly a malignant appearing lesion, he then underwent sigmoidoscopy with a repeat biopsy on 05/15/2019. Pathology at that time was consistent with well to moderately differentiated adenocarcinoma. CT abdomen pelvis showed circumferential perirectal soft tissue thickening consistent with rectal neoplasm. Also noted was left perirectal lymphadenopathy and aortocaval lymphadenopathy consistent with metastatic disease with the largest aortocaval node measuring 2.0 cm and the left perirectal node measuring 2.2 cm. He was referred to Dr. Otto in [place] for further management, and he then undergo neoadjuvant chemoradiation utilizing capecitabine for chemosensitization. He apparently was lost to follow-up there after completing the radiation. He was admitted to [facility] on 10/29/2019 after presenting to the emergency room with abdominal pain and swelling. His CT abdomen/pelvis showed evidence of abundant ascites and omental carcinomatosis. There was abnormal wall thickening and enhancement of the loops of small bowel, possibly reflecting enteritis, but concerning for neoplastic infiltration of the wall of the loops of bowel. An apple core type lesion with marked wall thickening and narrowing was noted in the distal sigmoid colon/rectum. A new ill-defined 2 cm nodule in the dome of the liver was new and suspicious for metastatic disease. On 10/30/2019 he underwent paracentesis with removal of 2000 mL of fluid. The cytology was negative. I had seen him initially on 11/02/2019. At that point he was still in pretty good performance status. Biopsy was recommended to confirm the histology of his disease, particularly with the pattern of metastatic involvement and the fact that his CEA level was normal. As the liver lesion was not accessible for needle biopsy, he underwent CT directed needle biopsy of a peritoneal mass on 11/21/2019. Pathology has just become available, and it does show metastatic adenocarcinoma, CDX 2 positive, consistent with colonic primary. In the meantime, a next generation sequencing study had been requested on his primary tumor. It showed the tumor to be MSI stable and KRAS wild type. His other medical illnesses include hypertension and GERD. He has a remote history of smoking a pack of cigarettes daily for about 10 years. He had quit smoking cigarettes sometime in his early 20s, but he has continued smoking a cigar about 3 times a week. INTERIM HISTORY: On 11/29/2019 he began cycle 1 of palliative chemotherapy with modified FOLFOX in combination with panitumumab. At that point he had very poor oral intake and very marginal performance status. He required IV fluid support, but he was able to tolerate the treatment without significant acute toxicity. By day 5 he was neutropenic, but he recovered uneventfully with Neupogen. He began to show gradual improvement in his symptoms. He was then able to continue treatment at 2-week intervals with Neulasta administered prophylactically. He began his 6th cycle of treatment on 02/06/2020. At that point he was given a 1 level reduction in the oxaliplatin dosage and a 20% reduction in the 5-FU dosage due to thrombocytopenia. The panitumumab was put on hold due to worsening skin eruption. He continued with his cycle 7 treatment on 02/20/2020. He tolerated it well. With cycle 8, on 03/05/2020, I did restart the panitumumab at a reduced dosage of 4 mg/kg. Restaging CT of the abdomen/pelvis on 03/14/2020 showed evidence of interval response to therapy with resolution of previously described ascites and omental carcinomatosis. Also noted was resolution of the metastatic lesion in the dome of the liver. There was residual circumferential thickening involving the distal sigmoid colon and rectum. There was no evidence of disease progression. He continued with his 12th cycle of treatment on 04/30/2020. Beginning on 05/13/2020 I opted to drop the chemotherapy and continue treatment with panitumumab monotherapy. Restaging CT scans on 06/20/2020 showed residual thickening involving the distal sigmoid colon and rectum, stable compared to the March [address] CT and the October 2019 PET/CT. A 2.5 cm hepatic cyst along the undersurface of the right hepatic lobe appeared stable. There was mild diffuse fatty infiltration of the liver. There was no evidence of metastatic disease in the chest, abdomen, or pelvis. He is seen for a scheduled visit. He has been feeling good generally. He has had improvement in his energy/activity tolerance since he stopped the chemotherapy. His ECOG score is 0. His appetite has been good. He has gained weight. He does not have fever or night sweats. The skin eruption on his chest sustained about the same. He has some new skin involvement on his ears. Thus far it is very tolerable. He does complain that his skin is thin, and he tends to bruise and bleed easily. He has a little bit of cough and he occasionally has slight wheezing. He otherwise does not complain of shortness of breath, and is not had any chest pain. He has no GI complaints other than the caliber of his stools is getting a little smaller. Bladder function remains adequate. He has nocturia 2 or 3 times. He has no significant joint or bone pain. He still has some numbness on the bottoms of his toes. He is using a topical therapy for toenail fungus, apparently with good success. Medications: Acyclovir 1 Tablet (of 400 mg) Oral daily, amLODIPine Besylate 1 (10 mg) Tablet Oral daily, Dexamethasone (4 mg) Tablet Oral Take as Directed, Lomotil 1 Tablet (of 2.5-0.025 mg) Oral PRN, Loratadine 1 Tablet (of 10 mg) Oral PRN, LORazepam 0.5 - 1 Tablet (of 1 mg) Oral t.i.d. PRN, oxyCODONE HCl 1 Tablet (of 10 mg) Oral q 4 hours PRN, Prochlorperazine Maleate 1 Tablet (of 10 mg) Oral q 4 hours PRN Allergies: No Known Allergies. Review of Systems: Constitutional - His energy has been very good and he is feeling great since stopping chemotherapy. His activity level has returned to normal without restrictions. His appetite is good and his weight is up about 8 pounds from his April visit. No fever, night sweats, or hot flashes. ECOG score is 0, ENMT - No sinus congestion/drainage. No mouth sores. No sore throat or difficulty swallowing, Hematologic/Lymphatic - He bruises and bleeds easily, Respiratory - No shortness of breath. He has occasional mild wheezing. He has a slight cough. No pleuritic pain or hemoptysis, Cardiovascular - No angina pain. No palpitations, Gastrointestinal - No nausea or vomiting. No heartburn or acid reflux. No diarrhea or constipation, but he has had a decrease in the caliber of his stools. No blood in the stool or black stools, Genitourinary (M) - No dysuria or hematuria. No urinary frequency. He has nocturia x 2. No urgency or incontinence, Musculoskeletal - No joint or bone pain, Integumentary - He has rash on his chest which hasn't changed. He has some new rash on both ears, Neurologic - No headache. He has occasional dysequilibrium. He has some numbness on the bottoms of his toes. No other focal neurologic symptoms, Psychiatric - No anxiety or depression. No insomnia. Vital Signs: Performed on Jun 24, 2020 09:20 Height - 70.00 in Weight - 196.0 lbs (HIGH) BSA - 2.07 sq.m BMI - 28.12 Temperature - 98.1 F (LOW) Pulse - 83 /min Respiration - 18 /min BP - 136/88 mm(hg) O2 Sat - 96 % Pain - 0 Physical Examination: Constitutional - He looks good generally, Eyes - Sclerae nonicteric. Conjunctivae clear, ENMT - No lesions noted in the oral cavity, Hematologic/Lymphatic - No cervical, clavicular, or axillary adenopathy, Respiratory - Lungs are clear with good air movement bilaterally. There is no audible wheezing, Cardiovascular - Heart rhythm is regular. There is no murmur, gallop, or rub noted, Abdomen - Soft. Liver and spleen are not enlarged. There is no abdominal mass or ascites noted. There is no inguinal adenopathy, Extremities - No edema. He has purpura on both arms, Integumentary - There is a mild residual skin eruption on the chest. There is some new desquamation involving the inferior aspect of both ears, Neurologic - No focal neurologic deficits noted. Lab/Imaging: CBC shows hemoglobin 14.2 g, white blood cell count 3600, and platelet count 147,000. Comprehensive metabolic profile shows slightly elevated total bilirubin at 1.5 mg/dL and slightly elevated alkaline phosphatase at 142/130 IU/L. The other liver enzymes are normal. Impression: 1. Patient with well to moderately differentiated adenocarcinoma of the rectum. He underwent chemoradiation utilizing capecitabine for chemosensitization following initial diagnosis of the rectal cancer in May 2019. 2. He had subsequent disease progression to stage IVC (T3, N2, M1c) with CT evidence of metastatic involvement in the peritoneum and liver. He had associated ascites. CT-directed needle biopsy of a right peritoneal mass on 11/21/2019 confirmed adenocarcinoma consistent with colorectal primary. The tumor was confirmed to be MSI stable and KRAS wild-type. His other medical illnesses include: 3. Hypertension. 4. GERD. On 11/29/2019 he began cycle 1 of palliative chemotherapy with modified FOLFOX in combination with panitumumab. He was able to tolerate it with acceptable toxicity and he then continued treatment at 2-week intervals. During subsequent follow-up there was significant improvement in his clinical status. Side effects with the treatment had included neutropenia and skin eruption. He had only minimal neuropathy. Beginning with cycle 6, on 02/06/2020, he was given a 1 level reduction in the oxaliplatin dosage and a 20% reduction in the 5-FU dosage due to thrombocytopenia. The panitumumab was put on hold due to worsening skin eruption. He continued with his cycle 8 treatment on 03/05/2020. With that cycle, the panitumumab was restarted at a reduced dosage of 4 mg/kg. During subsequent followup the skin eruption was tolerable, and he had otherwise tolerated the treatment very well. He has had evidence of significant response by restaging CT scan. As of 04/30/2020 he had completed 12 cycles of treatment. At that point he was doing well clinically, and beginning on 05/13/2020 I opted to drop the chemotherapy and continue with panitumumab monotherapy. He has since then shown some improvement in his performance status, and overall he is doing very well clinically. He continues to have some skin eruption with the panitumumab, but it is very tolerable. He appears to have an excellent response treatment by his current restaging CT scans. Plan: He will continue panitumumab monotherapy at 4 mg/kg by IV infusion every 2 weeks. He will return for treatment in 2 weeks and again in 4 weeks. He will be scheduled for a followup visit in 6 weeks. Signed By: Tiago Edwadrs M.D. <<Signature on File>>
[2020-07-08] MEDS: sodium chloride 0.9% 250 ML 300 ML IV (09:50)
[2020-07-08] MEDS: acetaminophen 325 mg Tablet 650 MG PO (09:51)
== END 2020-07-14 23:59 | disposition home or self-care (01) ==
LOC: ONCMED 05:40
PROVIDERS: PCP Family Medicine; Visit Provider Internal Medicine Medical Oncology
DX: Z51.11 Encounter for antineoplastic chemotherapy (principal); C20 Malignant neoplasm of rectum; C78.6 Secondary malignant neoplasm of retroperitoneum and peritoneum; D70.1 Agranulocytosis secondary to cancer chemotherapy; T45.1X5A Adverse effect of antineoplastic and immunosuppressive drugs, initial encounter; K21.9 Gastro-esophageal reflux disease without esophagitis; I10 Essential (primary) hypertension
CPT/HCPCS: 36591; 71260; 74177; 80053; 82378; 85025; 96367; 96413; 99214; J1200; J3490; J7050; J9303; Q9967

== ENCOUNTER 2020-08-05 05:32 | Outpatient (RCR) | payer MEDICARE, OTHER, SELFPAY ==
[2020-07-22] MEDS: acetaminophen 325 mg Tablet 650 MG PO (08:44)
[2020-07-22] MEDS: sodium chloride 0.9% 250 ML 75 ML IV (08:44)
[2020-08-04 09:49] LABS: Basophils # 0.1 10^3/uL (0.0-0.1); Basophils % 1.2 %; Eosinophils # 0.2 10^3/uL (0.0-0.8); Eosinophils % 5.4 %; Hematocrit 45.3 % (42.0-52.0); Hemoglobin 15.4 g/dL (11.7-16.6); Lymphocytes # 0.8 10^3/uL (0.8-4.8); Lymphocytes % 18.5 %; Mean Corpuscular Hemoglobin 30.9 pg (28.0-34.0); Mean Corpuscular Volume 90.8 fL (80-94); Mean Platelet Volume 10.8 fL (7.4-10.4); Monocytes # 0.5 10^3/uL (0.2-0.9); Monocytes % 11.2 %; Neutrophils # 2.71 10^3/uL (1.8-7.7); Neutrophils % 63.5 %; Nucleated Red Blood Cells % 0 %; Platelet Count 163 10^3/cmm (130-400); Red Blood Count 4.99 10^6/uL (4.1-5.3); Red Cell Distribution Width 13.2 % (12.1-15.1); White Blood Count 4.3 10^3/uL (4.0-10.0)
[2020-08-04 10:05] LABS: Carcinoembryonic Antigen 1.6 ng/mL (0.0-4.7)
[2020-08-04 10:17] LABS: Alanine Aminotransferase 36 U/L (0-41); Albumin Level 4.4 g/dL (3.5-5.2); Alkaline Phosphatase 139 IU/L (40-130); Anion Gap 12.7 (5-19); Aspartate Amino Transferase 36 U/L (0-40); Blood Urea Nitrogen 11 mg/dL (8-23); Calcium 8.5 mg/dL (8.5-10.5); Carbon Dioxide 26 mmol/L (22-29); Chloride 105 mmol/L (98-107); Globulin 2.3 g/dL (1.3-4.6); Glomerular Filtration Rate 134.4 mL/min (90-130); Glucose 99 mg/dL (65-115); Osmolality Calculated 289 mOsm/kg (285-295); Potassium 3.7 mmol/L (3.5-5.1); Sodium 140 mmol/L (136-145); Total Bilirubin 1.9 mg/dL (0.15-1.2); Total Protein 6.7 g/dL (6.6-8.7)
[2020-08-05] MEDS: sodium chloride 0.9% (100 ml) 100 ML 45 ML (09:55)
[2020-08-05] MEDS: acetaminophen 325 mg Tablet 650 MG PO (09:57)
--- NOTE | 2020-08-14 18:06 | ONC FU_ITS ---
[facility] Yates Patient Note Patient: Mick Fritz Unit #: [id number]: [id number] Dictated By: Jose R YeungDate of Visit: Aug 05, 2020 Onc MED Follow-Up/Prog Note Chief Complaint: Rectal cancer. 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 In April 2019 he had been referred to Dr. Altamirano for excision of a skin lesion on his chest. He also was in need of screening colonoscopy. The skin lesion turned out to be a basal cell carcinoma. The colonoscopy showed a pedunculated polyp in the descending colon which was able to be removed endoscopically. Also noted was a malignant appearing mass involving two thirds of the circumference at the first rectal fold. 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 The rectal biopsy showed tubulovillous adenoma with focal high-grade dysplasia. As it was clearly a malignant appearing lesion, he then underwent sigmoidoscopy with a repeat biopsy on 05/15/2019. Pathology at that time was consistent with well to moderately differentiated adenocarcinoma. CT abdomen pelvis showed circumferential perirectal soft tissue thickening consistent with rectal neoplasm. Also noted was left perirectal lymphadenopathy and aortocaval lymphadenopathy consistent with metastatic disease with the largest aortocaval node measuring 2.0 cm and the left perirectal node measuring 2.2 cm. He was referred to Dr. Otto in [place] for further management, and he then undergo neoadjuvant chemoradiation utilizing capecitabine for chemosensitization. He apparently was lost to follow-up there after completing the radiation. He was admitted to [facility] on 10/29/2019 after presenting to the emergency room with abdominal pain and swelling. His CT abdomen/pelvis showed evidence of abundant ascites and omental carcinomatosis. There was abnormal wall thickening and enhancement of the loops of small bowel, possibly reflecting enteritis, but concerning for neoplastic infiltration of the wall of the loops of bowel. An apple core type lesion with marked wall thickening and narrowing was noted in the distal sigmoid colon/rectum. A new ill-defined 2 cm nodule in the dome of the liver was new and suspicious for metastatic disease. On 10/30/2019 he underwent paracentesis with removal of 2000 mL of fluid. The cytology was negative. Dr Edwards had seen him initially on 11/02/2019. At that point he was still in pretty good performance status. Biopsy was recommended to confirm the histology of his disease, particularly with the pattern of metastatic involvement and the fact that his CEA level was normal. As the liver lesion was not accessible for needle biopsy, he underwent CT directed needle biopsy of a peritoneal mass on 11/21/2019. Pathology has just become available, and it does show metastatic adenocarcinoma, CDX 2 positive, consistent with colonic primary. In the meantime, a next generation sequencing study had been requested on his primary tumor. It showed the tumor to be MSI stable and KRAS wild type. His other medical illnesses include hypertension and GERD. He has a remote history of smoking a pack of cigarettes daily for about 10 years. He had quit smoking cigarettes sometime in his early 20s, but he has continued smoking a cigar about 3 times a week. INTERIM HISTORY: On 11/29/2019 he began cycle 1 of palliative chemotherapy with modified FOLFOX in combination with panitumumab. At that point he had very poor oral intake and very marginal performance status. He required IV fluid support, but he was able to tolerate the treatment without significant acute toxicity. By day 5 he was neutropenic, but he recovered uneventfully with Neupogen. He began to show gradual improvement in his symptoms. He was then able to continue treatment at 2-week intervals with Neulasta administered prophylactically. He began his 6th cycle of treatment on 02/06/2020. At that point he was given a 1 level reduction in the oxaliplatin dosage and a 20% reduction in the 5-FU dosage due to thrombocytopenia. The panitumumab was put on hold due to worsening skin eruption. He continued with his cycle 7 treatment on 02/20/2020. He tolerated it well. With cycle 8, on 03/05/2020, it was opted to restart the panitumumab at a reduced dosage of 4 mg/kg. Restaging CT of the abdomen/pelvis on 03/14/2020 showed evidence of interval response to therapy with resolution of previously described ascites and omental carcinomatosis. Also noted was resolution of the metastatic lesion in the dome of the liver. There was residual circumferential thickening involving the distal sigmoid colon and rectum. There was no evidence of disease progression. He continued with his 12th cycle of treatment on 04/30/2020. Beginning on 05/13/2020, Dr Edwards opted to drop the chemotherapy and continue treatment with panitumumab monotherapy. Restaging CT scans on 06/20/2020 showed residual thickening involving the distal sigmoid colon and rectum, stable compared to the March 2020 CT and the October 2019 PET/CT. A 2.5 cm hepatic cyst along the undersurface of the right hepatic lobe appeared stable. There was mild diffuse fatty infiltration of the liver. There was no evidence of metastatic disease in the chest, abdomen, or pelvis. He continues the panitumumab. Mr. Fritz is here today for follow-up. He is due for cycle 7 single agent vectibix/Panitumumab. He states overall he feels great. He has been playing new floor in his bathroom. He states he [facility]. He states he golfed 3 times last week and tolerated this well. He obviously remains very active. He has no new concerns today. His rash is still stable. Is not worsened after his last treatment. He denies any new shortness of breath orthopnea. He denies any chest pain or palpitations. He denies any cough or hemoptysis. He has had no nausea or vomiting. He denies any neuropathy symptoms. His ECOG is 0. Past Medical History: Gastroesophageal reflux disease Hypertension Rectal cancer Past Surgical History: Liver biopsy Tonsillectomy Left side porthacatheter placement dr. altamirano in 2019 Sigmoidoscopy with biopsy of rectal mass in 2019 Colonoscopy in 2019 Excision of basal cell skin cancer in 2019 Allergies: No Known Allergies. Medications: Acyclovir 1 Tablet (of 400 mg) Oral daily amLODIPine Besylate 1 (10 mg) Tablet Oral daily Dexamethasone (4 mg) Tablet Oral Take as Directed Lomotil 1 Tablet (of 2.5-0.025 mg) Oral PRN Loratadine 1 Tablet (of 10 mg) Oral PRN LORazepam 0.5 - 1 Tablet (of 1 mg) Oral t.i.d. PRN oxyCODONE HCl 1 Tablet (of 10 mg) Oral q 4 hours PRN Prochlorperazine Maleate 1 Tablet (of 10 mg) Oral q 4 hours PRN Family History: Mr. Fritz's mother is alive. Mr. Fritz's father at age 92: heart disease, and type II diabetes. Mr. Fritz has 1 brother who is alive. He has 1 sister who is alive. Mother still living at age 89. Father with heart disease at age 92. He also had diabetes. A maternal aunt had breast cancer. His maternal grandfather had lung cancer. 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 Mr. Fritz quit smoking 46 years ago but had smoked 1.0 pack/day for 12 years. He drinks occasionally. He consumes 2 drinks/day 3 days/week. He has indicated exposure to the following products: cigars. Mr. Fritz reports the following support systems: lives with spouse, significant other, family, or friends and adequate transportation available for expected visits. His diet consists of regular meals. He indicates his activity level as: light exercise. 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 He has a history of smoking 1 pack of cigarettes daily for 10 years, but he had quit by sometime in his early 20s. He smokes a cigar about 3 times a week. Alcohol use averages 2 beers 3 days a week. Review Of Symptoms: Constitutional Denies fevers, chills, night sweats, excessive fatigue or weight loss. Denies fever or chills. Allergic/Immunologic No reactions. Eyes Denies significant visual changes. No diplopia. No amaurosis. ENMT Denies changes in hearing, sore throat, mouth sores, difficulty or changes in swallowing ability, and/or sinus drainage. Hematologic/Lymphatic Denies easy bruising or bleeding. The patient denies any tender or palpable lymph nodes. Respiratory Denies dyspnea on exertion, chest pain, cough or hemoptysis. Denies orthopnea. Cardiovascular Denies anginal chest pain, palpitations or orthopnea. Gastrointestinal Denies current nausea, vomiting, diarrhea, GI bleeding, or constipation. Denies change in bowel habits and/or stool color, no heartburn or early satiety. Genitourinary (M) Denies hematuria, dysuria, increased frequency, urgency, hesitancy or incontinence. Musculoskeletal Denies joint pain, swelling or redness. No decreased range of motion. Integumentary vectibix rash to chest-mild -no pustules noted today. Neurologic Denies headache, blurred vision, and no areas of focal weakness or numbness. Normal gait. No sensory problems. Psychiatric Denies insomnia, depression, jeanette or mood swings. Vital Signs: Performed on Aug 05, 2020 09:19 Height - 70.00 in Weight - 193.8 lbs (LOW) BSA - 2.06 sq.m BMI - 27.81 Temperature - 97.2 F (LOW) Pulse - 71 /min Respiration - 20 /min BP - 139/100 mm(hg) O2 Sat - 96 % Pain - 0,0 - Fully active, able to carry on all predisease activities without restrictions. (ECOG) Physical Examination: Constitutional Alert, oriented, no acute distress. Skin pink, warm and dry. Head Normocephalic; atraumatic. Eyes Conjunctivae and sclerae are clear and without icterus. Pupils are reactive and equal. ENMT No oral exudates, ulcers, masses, thrush or mucositis. Oropharynx clear. Tongue normal. Neck Supple without masses or thyromegaly. No jugular venous distension. Hematologic/Lymphatic No petechiae or purpura. No tender or palpable lymph nodes in the cervical or supraclavicular areas. Respiratory Lungs are clear to auscultation without rhonchi or wheezing. Cardiovascular Regular rate and rhythm of heart without murmurs,clicks, gallops or rubs. Chest scattered red maculopapular rash on anterior chest. Mild without pustules at present. Abdomen Non-tender, non-distended, no masses or ascites. ++. No guarding or rebound tenderness. No pulsatile masses. Back/Spine Non-tender to palpation. Extremities No visible deformities, no cyanosis, clubbing or edema. Musculoskeletal No tenderness or swelling, normal range of motion without obvious weakness. Integumentary maculopapular rash from Vectibix chest. Vastly improved since last visit, no pustules noted at present. Neurologic No sensory or motor deficits, normal cerebellar function, normal gait. Psychiatric Alert and oriented times three. Coherent speech. Verbalizes understanding of our discussions today. Laboratory:Test performed on Aug 04, 2020 08:40 Sodium 140 mmol/L Potassium 3.7 mmol/L Chloride 105 mmol/L CO2 26 mmol/L Anion Gap 12.7 BUN 11 mg/dL Creatinine 0.6 mg/dL Cr Clearance (Est) 144.1000 mL/min eGFR 134.4 mL/min Glucose 99 mg/dL Osmolality - Calculated 289 mOsm/kg Calcium 8.5 mg/dL Protein, Total 6.7 g/dL Albumin 4.4 g/dL Globulin 2.3 g/dL Bilirubin, Total 1.9 mg/dL ALT (SGPT) 36 U/L AST (SGOT) 36 U/L Alkaline Phosphatase 139 IU/L WBC 4.3 10 3/uL RBC 4.99 10 6/uL HGB 15.4 g/dL HCT 45.3 % MCV 90.8 fL MCH 30.9 pg MCHC 34.0 g/dL RDW 13.2 % Platelet Count 163 10 3/cmm MPV 10.8 fL Neutrophils 2.71 10 3/uL Lymphocytes 0.8 10 3/uL Monocytes 0.5 10 3/uL Eosinophils 0.2 10 3/uL Basophils 0.1 10 3/uL Neutrophil % 63.5 % Lymphocyte % 18.5 % Monocyte % 11.2 % Eosinophil % 5.4 % Basophils % 1.2 % NRBC % 0 % CEA 1.6 ng/mL Impression: 1. Patient with well to moderately differentiated adenocarcinoma of the rectum. He underwent chemoradiation utilizing capecitabine for chemosensitization following initial diagnosis of the rectal cancer in May 2019. 2. He had subsequent disease progression to stage IVC (T3, N2, M1c) with CT evidence of metastatic involvement in the peritoneum and liver. He had associated ascites. CT-directed needle biopsy of a right peritoneal mass on 11/21/2019 confirmed adenocarcinoma consistent with colorectal primary. The tumor was confirmed to be MSI stable and KRAS wild-type. His other medical illnesses include: 3. Hypertension. 4. GERD. On 11/29/2019 he began cycle 1 of palliative chemotherapy with modified FOLFOX in combination with panitumumab. He was able to tolerate it with acceptable toxicity and he then continued treatment at 2-week intervals. During subsequent follow-up there was significant improvement in his clinical status. Side effects with the treatment had included neutropenia and skin eruption. He had only minimal neuropathy. Beginning with cycle 6, on 02/06/2020, he was given a 1 level reduction in the oxaliplatin dosage and a 20% reduction in the 5-FU dosage due to thrombocytopenia. The panitumumab was put on hold due to worsening skin eruption. He continued with his cycle 8 treatment on 03/05/2020. With that cycle, the panitumumab was restarted at a reduced dosage of 4 mg/kg. During subsequent followup the skin eruption was tolerable, and he had otherwise tolerated the treatment very well. He has had evidence of significant response by restaging CT scan. As of 04/30/2020 he had completed 12 cycles of treatment. At that point he was doing well clinically, and beginning on 05/13/2020 it was opted to drop the chemotherapy and continue with panitumumab monotherapy. He has since then shown some improvement in his performance status, and overall he is doing very well clinically. He continues to have some skin eruption with the panitumumab, but it is very tolerable. He appears to have an excellent response treatment by his current restaging CT scans. Plan: 1. Proceed with vickie 7 single agent panitumumab monotherapy at 4 mg/kg by IV infusion every 2 weeks. 2. Labs from August 04, 2020 were reviewed in detail and discussed with Mr. Fritz and a copy was given to him. WBC 4.3, hemoglobin 15.4, platelets 1 63,000 ANC is 2700. Creatinine 0.6 LFTs are normal his bilirubin is 1.9 which is chronic. His CEA is 1.6. His alk phos is improved at 139. Potassium 3.7. 3. We will plan to see him back in 6 weeks with CBC CMP and CEA. 4. He return for treatment with the Panitumumab every 2 weeks. 5. Mr. Fritz was instructed to contact us in interim should questions or problems arise. Signed By: Jose R Yeung-, AOP Tiago Edwards MD <<Signature on File>>
== END 2020-08-13 23:59 | disposition home or self-care (01) ==
LOC: ONCMED 05:32
PROVIDERS: Internal Medicine Medical Oncology; PCP Family Medicine; Visit Provider Nurse Practitioner
DX: Z51.11 Encounter for antineoplastic chemotherapy (principal); C20 Malignant neoplasm of rectum; C78.6 Secondary malignant neoplasm of retroperitoneum and peritoneum; D70.1 Agranulocytosis secondary to cancer chemotherapy; D69.59 Other secondary thrombocytopenia; T45.1X5A Adverse effect of antineoplastic and immunosuppressive drugs, initial encounter; I10 Essential (primary) hypertension; K21.9 Gastro-esophageal reflux disease without esophagitis
CPT/HCPCS: 36591; 80053; 82378; 85025; 96367; 96413; 99214; J1200; J3490; J7050; J9303

== ENCOUNTER 2020-09-02 05:26 | Outpatient (RCR) | payer MEDICARE, OTHER, SELFPAY ==
[2020-08-19] MEDS: acetaminophen 325 mg Tablet 650 MG PO (08:30)
[2020-08-19] MEDS: sodium chloride 0.9% 250 ML 999 ML IV (08:35)
[2020-09-02] MEDS: acetaminophen 325 mg Tablet 650 MG PO (08:38)
[2020-09-02] MEDS: sodium chloride 0.9% 250 ML 999 ML IV (08:38)
== END 2020-09-13 23:59 | disposition home or self-care (01) ==
LOC: ONCMED 05:26
PROVIDERS: PCP Family Medicine; Visit Provider Nurse Practitioner
DX: Z51.11 Encounter for antineoplastic chemotherapy (principal); C20 Malignant neoplasm of rectum; C78.6 Secondary malignant neoplasm of retroperitoneum and peritoneum; D70.1 Agranulocytosis secondary to cancer chemotherapy; D69.59 Other secondary thrombocytopenia; T45.1X5A Adverse effect of antineoplastic and immunosuppressive drugs, initial encounter
CPT/HCPCS: 96367; 96413; J1200; J3490; J7050; J9303

== ENCOUNTER 2020-09-30 05:48 | Outpatient (RCR) | payer MEDICARE, OTHER, SELFPAY ==
[2020-09-15 08:57] LABS: Basophils % 0.4 %; Eosinophils # 0.1 10^3/uL (0.0-0.8); Eosinophils % 2.7 %; Hematocrit 45.3 % (42.0-52.0); Hemoglobin 15.4 g/dL (11.7-16.6); Lymphocytes # 0.9 10^3/uL (0.8-4.8); Lymphocytes % 17.2 %; Mean Corpuscular Hemoglobin 30.9 pg (28.0-34.0); Mean Corpuscular Volume 90.8 fL (80-94); Mean Platelet Volume 9.9 fL (7.4-10.4); Monocytes # 0.6 10^3/uL (0.2-0.9); Monocytes % 10.7 %; Neutrophils # 3.53 10^3/uL (1.8-7.7); Neutrophils % 68.4 %; Nucleated Red Blood Cells % 0 %; Platelet Count 160 10^3/cmm (130-400); Red Blood Count 4.99 10^6/uL (4.1-5.3); Red Cell Distribution Width 13.2 % (12.1-15.1); White Blood Count 5.2 10^3/uL (4.0-10.0)
[2020-09-15 09:17] LABS: Alanine Aminotransferase 24 U/L (0-41); Albumin Level 4.2 g/dL (3.5-5.2); Alkaline Phosphatase 152 IU/L (40-130); Aspartate Amino Transferase 26 U/L (0-40); Blood Urea Nitrogen 13 mg/dL (8-23); Calcium 8.8 mg/dL (8.5-10.5); Carbon Dioxide 25 mmol/L (22-29); Chloride 104 mmol/L (98-107); Globulin 2.2 g/dL (1.3-4.6); Glomerular Filtration Rate 112.5 mL/min (90-130); Glucose 105 mg/dL (65-115); Osmolality Calculated 286 mOsm/kg (285-295); Sodium 138 mmol/L (136-145); Total Bilirubin 1.7 mg/dL (0.15-1.2); Total Protein 6.4 g/dL (6.6-8.7)
[2020-09-15 10:22] LABS: Carcinoembryonic Antigen 1.7 ng/mL (0.0-4.7)
[2020-09-16] MEDS: sodium chloride 0.9% 250 ML 999 ML IV (09:29)
[2020-09-16] MEDS: acetaminophen 325 mg Tablet 650 MG PO (09:46)
--- NOTE | 2020-09-20 10:36 | ONC FU_ITS ---
Dr. Edwards Patient Follow-Up Note Patient: Mick Fritz Unit #: [id number]: 1955 Dicatated By: Tiaog Edwards M.D.Date of Visit:Sep 16, 2020 Onc Med Follow-up/Prog Note Chief Complaint: Rectal cancer. 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 In April 2019 he had been referred to Dr. Altamirano for excision of a skin lesion on his chest. He also was in need of screening colonoscopy. The skin lesion turned out to be a basal cell carcinoma. The colonoscopy showed a pedunculated polyp in the descending colon which was able to be removed endoscopically. Also noted was a malignant appearing mass involving two thirds of the circumference at the first rectal fold. 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 The rectal biopsy showed tubulovillous adenoma with focal high-grade dysplasia. As it was clearly a malignant appearing lesion, he then underwent sigmoidoscopy with a repeat biopsy on 05/15/2019. Pathology at that time was consistent with well to moderately differentiated adenocarcinoma. CT abdomen pelvis showed circumferential perirectal soft tissue thickening consistent with rectal neoplasm. Also noted was left perirectal lymphadenopathy and aortocaval lymphadenopathy consistent with metastatic disease with the largest aortocaval node measuring 2.0 cm and the left perirectal node measuring 2.2 cm. He was referred to Dr. Otto in [place] for further management, and he then undergo neoadjuvant chemoradiation utilizing capecitabine for chemosensitization. He apparently was lost to follow-up there after completing the radiation. He was admitted to [facility] on 10/29/2019 after presenting to the emergency room with abdominal pain and swelling. His CT abdomen/pelvis showed evidence of abundant ascites and omental carcinomatosis. There was abnormal wall thickening and enhancement of the loops of small bowel, possibly reflecting enteritis, but concerning for neoplastic infiltration of the wall of the loops of bowel. An apple core type lesion with marked wall thickening and narrowing was noted in the distal sigmoid colon/rectum. A new ill-defined 2 cm nodule in the dome of the liver was new and suspicious for metastatic disease. On 10/30/2019 he underwent paracentesis with removal of 2000 mL of fluid. The cytology was negative. I had seen him initially on 11/02/2019. At that point he was still in pretty good performance status. Biopsy was recommended to confirm the histology of his disease, particularly with the pattern of metastatic involvement and the fact that his CEA level was normal. As the liver lesion was not accessible for needle biopsy, he underwent CT directed needle biopsy of a peritoneal mass on 11/21/2019. Pathology has just become available, and it does show metastatic adenocarcinoma, CDX 2 positive, consistent with colonic primary. In the meantime, a next generation sequencing study had been requested on his primary tumor. It showed the tumor to be MSI stable and KRAS wild type. His other medical illnesses include hypertension and GERD. He has a remote history of smoking a pack of cigarettes daily for about 10 years. He had quit smoking cigarettes sometime in his early 20s, but he has continued smoking a cigar about 3 times a week. INTERIM HISTORY: On 11/29/2019 he began cycle 1 of palliative chemotherapy with modified FOLFOX in combination with panitumumab. At that point he had very poor oral intake and very marginal performance status. He required IV fluid support, but he was able to tolerate the treatment without significant acute toxicity. By day 5 he was neutropenic, but he recovered uneventfully with Neupogen. He began to show gradual improvement in his symptoms. He was then able to continue treatment at 2-week intervals with Neulasta administered prophylactically. He began his 6th cycle of treatment on 02/06/2020. At that point he was given a 1 level reduction in the oxaliplatin dosage and a 20% reduction in the 5-FU dosage due to thrombocytopenia. The panitumumab was put on hold due to worsening skin eruption. He continued with his cycle 7 treatment on 02/20/2020. He tolerated it well. With cycle 8, on 03/05/2020, I did restart the panitumumab at a reduced dosage of 4 mg/kg. Restaging CT of the abdomen/pelvis on 03/14/2020 showed evidence of interval response to therapy with resolution of previously described ascites and omental carcinomatosis. Also noted was resolution of the metastatic lesion in the dome of the liver. There was residual circumferential thickening involving the distal sigmoid colon and rectum. There was no evidence of disease progression. He continued with his 12th cycle of treatment on 04/30/2020. Beginning on 05/13/2020 I opted to drop the chemotherapy and continue treatment with panitumumab monotherapy. Restaging CT scans on 06/20/2020 showed residual thickening involving the distal sigmoid colon and rectum, stable compared to the March [address] CT and the October 2019 PET/CT. A 2.5 cm hepatic cyst along the undersurface of the right hepatic lobe appeared stable. There was mild diffuse fatty infiltration of the liver. There was no evidence of metastatic disease in the chest, abdomen, or pelvis. With those findings, he continued treatment with panitumumab at 2-week intervals. He is seen for a scheduled visit. He says he is feeling great. Good energy and activity tolerance. ECOG score is 0. Appetite is good. He has no fever or night sweats. He still has some skin rash with the panitumumab, but it is tolerable. He has no shortness of breath, cough, or chest pain. He has no GI/ complaints other than occasional acid reflux. Has had some pain in his left wrist. He has no other joint or bone pain. He does not complain of headache or dizziness. He has numbness and the median nerve distribution of the right hand and he has some numbness on the bottoms of his feet. Medications: Dexamethasone (4 mg) Tablet Oral Take as Directed, Lomotil 1 Tablet (of 2.5-0.025 mg) Oral PRN, Loratadine 1 Tablet (of 10 mg) Oral PRN, LORazepam 0.5 - 1 Tablet (of 1 mg) Oral t.i.d. PRN, oxyCODONE HCl 1 Tablet (of 10 mg) Oral q 4 hours PRN, PriLOSEC OTC 1 Tablet (of 20 mg) Tablet, enteric coated Oral daily, Prochlorperazine Maleate 1 Tablet (of 10 mg) Oral q 4 hours PRN Allergies: No Known Allergies. Review of Systems: Constitutional - He has good energy and activity tolerance. Appetite is good and weight is stable. No fever or night sweats. ECOG score is 0, ENMT - No sinus congestion/drainage. No mouth sores. No sore throat or difficulty swallowing, Hematologic/Lymphatic - No abnormal bruising or bleeding, Respiratory - No shortness of breath. No cough. No pleuritic pain or hemoptysis, Cardiovascular - No angina pain. No palpitations, Gastrointestinal - No nausea or vomiting. He occasionally has acid reflux. No diarrhea or constipation. No blood in the stool or black stools, Genitourinary (M) - No dysuria or hematuria. No urinary frequency. No urgency or incontinence, Musculoskeletal - He sometimes has pain in his left wrist. He has no other joint or bone pain, Integumentary - He has persistent skin eruption, but it is tolerable, Neurologic - No headache or dizziness. He has numbness in the median nerve distribution of the right hand and on the bottoms of both feet, Psychiatric - No anxiety or depression. No insomnia. Vital Signs: Performed on Sep 16, 2020 08:45 Height - 70.00 in Weight - 193.8 lbs BSA - 2.06 sq.m BMI - 27.81 Temperature - 97.8 F (LOW) Pulse - 64 /min Respiration - 18 /min BP - 153/93 mm(hg) (HIGH) O2 Sat - 97 % Pain - 0 Physical Examination: Constitutional - He looks good generally, Eyes - Sclerae nonicteric. Conjunctivae clear, ENMT - No lesions noted in the oral cavity, Hematologic/Lymphatic - No cervical, clavicular, or axillary adenopathy, Respiratory - Lungs are clear with good air movement bilaterally. There is no audible wheezing, Cardiovascular - Heart rhythm is regular. There is no murmur, gallop, or rub noted, Abdomen - Soft. Liver and spleen are not enlarged. There is no abdominal mass or ascites noted. There is no inguinal adenopathy, Extremities - No edema, Integumentary - There is some mild residual maculopapular skin eruption, now mainly confined to the trunk, Neurologic - No focal neurologic deficits noted. Lab/Imaging: CBC shows hemoglobin 15.4 g, white blood cell count 5200, and platelet count 160,000. Comprehensive metabolic profile shows stable renal function with BUN 13 and creatinine 0.7 mg/dL. Bilirubin is slightly elevated 1.7 mg/dL with alkaline phosphatase also slightly elevated at 152/130 IU/L. The other liver enzymes are normal. CEA stable 1.7 ng/mL. Impression: 1. Patient with well to moderately differentiated adenocarcinoma of the rectum. He underwent chemoradiation utilizing capecitabine for chemosensitization following initial diagnosis of the rectal cancer in May 2019. 2. He had subsequent disease progression to stage IVC (T3, N2, M1c) with CT evidence of metastatic involvement in the peritoneum and liver. He had associated ascites. CT-directed needle biopsy of a right peritoneal mass on 11/21/2019 confirmed adenocarcinoma consistent with colorectal primary. The tumor was confirmed to be MSI stable and KRAS wild-type. His other medical illnesses include: 3. Hypertension. 4. GERD. On 11/29/2019 he began cycle 1 of palliative chemotherapy with modified FOLFOX in combination with panitumumab. He was able to tolerate it with acceptable toxicity and he then continued treatment at 2-week intervals. During subsequent follow-up there was significant improvement in his clinical status. Side effects with the treatment had included neutropenia and skin eruption. He had only minimal neuropathy. Beginning with cycle 6, on 02/06/2020, he was given a 1 level reduction in the oxaliplatin dosage and a 20% reduction in the 5-FU dosage due to thrombocytopenia. The panitumumab was put on hold due to worsening skin eruption. He continued with his cycle 8 treatment on 03/05/2020. With that cycle, the panitumumab was restarted at a reduced dosage of 4 mg/kg. During subsequent followup the skin eruption was tolerable, and he had otherwise tolerated the treatment very well. He has had evidence of significant response by restaging CT scan. As of 04/30/2020 he had completed 12 cycles of treatment. At that point he was doing well clinically, and beginning on 05/13/2020 I opted to drop the chemotherapy and continue with panitumumab monotherapy. During subsequent follow-up he had further improvement in his performance status. He appeared to have an excellent treatment response on his restaging CT scans in June 2020. He has since then continued panitumumab monotherapy at 2-week intervals. He still has some skin eruption with it, but it is tolerable. Overall, he has been doing very well clinically, and thus far there has been no evidence of disease progression. Plan: He will continue panitumumab monotherapy at 4 mg/kg by IV infusion every 2 weeks. He will be scheduled for a followup visit in 6 weeks. He will be given a flu shot today. Signed By: Tiago Edwards M.D. <<Signature on File>>
[2020-09-30] MEDS: sodium chloride 0.9% 250 ML 999 ML IV (10:30)
[2020-09-30] MEDS: acetaminophen 325 mg Tablet 650 MG PO (10:35)
== END 2020-10-13 23:59 | disposition home or self-care (01) ==
LOC: ONCMED 05:48
PROVIDERS: Nurse Practitioner; PCP Family Medicine; Visit Provider Internal Medicine Medical Oncology
DX: Z51.11 Encounter for antineoplastic chemotherapy (principal); C20 Malignant neoplasm of rectum; C78.6 Secondary malignant neoplasm of retroperitoneum and peritoneum; D70.1 Agranulocytosis secondary to cancer chemotherapy; T45.1X5A Adverse effect of antineoplastic and immunosuppressive drugs, initial encounter; D69.59 Other secondary thrombocytopenia; I10 Essential (primary) hypertension; K21.9 Gastro-esophageal reflux disease without esophagitis; Z79.899 Other long term (current) drug therapy; Z23 Encounter for immunization
CPT/HCPCS: 36591; 80053; 82378; 85025; 90471; 90686; 96367; 96413; 99214; J1200; J3490; J7050; J9303

== ENCOUNTER 2020-11-11 05:23 | Outpatient (RCR) | payer MEDICARE, OTHER, SELFPAY ==
[2020-10-15] MEDS: sodium chloride 0.9% 250 ML 999 ML IV (08:30)
[2020-10-15] MEDS: famotidine 20 mg/2 mL INJ IVP (08:30)
[2020-10-15] MEDS: acetaminophen 325 mg Tablet 650 MG PO (08:38)
[2020-10-28 09:49] LABS: Basophils % 0.7 %; Eosinophils # 0.2 10^3/uL (0.0-0.8); Eosinophils % 2.6 %; Hemoglobin 15.7 g/dL (11.7-16.6); Lymphocytes # 0.8 10^3/uL (0.8-4.8); Lymphocytes % 13.8 %; Mean Corpuscular HGB Conc 34.1 g/dL (30.0-36.0); Mean Corpuscular Hemoglobin 30.9 pg (28.0-34.0); Mean Corpuscular Volume 90.6 fL (80-94); Mean Platelet Volume 10.1 fL (7.4-10.4); Monocytes # 0.5 10^3/uL (0.2-0.9); Monocytes % 7.9 %; Neutrophils # 4.52 10^3/uL (1.8-7.7); Neutrophils % 74.5 %; Nucleated Red Blood Cells % 0 %; Platelet Count 151 10^3/cmm (130-400); Red Blood Count 5.08 10^6/uL (4.1-5.3); Red Cell Distribution Width 13.4 % (12.1-15.1); White Blood Count 6.1 10^3/uL (4.0-10.0)
[2020-10-28 10:09] LABS: Alanine Aminotransferase 23 U/L (0-41); Albumin Level 4.1 g/dL (3.5-5.2); Alkaline Phosphatase 157 IU/L (40-130); Anion Gap 13.7 (5-19); Aspartate Amino Transferase 23 U/L (0-40); Blood Urea Nitrogen 10 mg/dL (8-23); Calcium 8.2 mg/dL (8.5-10.5); Carbon Dioxide 26 mmol/L (22-29); Chloride 103 mmol/L (98-107); Glomerular Filtration Rate 134.4 mL/min (90-130); Glucose 95 mg/dL (65-115); Osmolality Calculated 287 mOsm/kg (285-295); Potassium 3.7 mmol/L (3.5-5.1); Sodium 139 mmol/L (136-145); Total Bilirubin 1.8 mg/dL (0.15-1.2); Total Protein 6.1 g/dL (6.6-8.7)
[2020-10-28] MEDS: famotidine 20 mg/2 mL INJ IVP (12:00)
[2020-10-28] MEDS: sodium chloride 0.9% 250 ML IV (12:00)
[2020-10-28] MEDS: acetaminophen 325 mg Tablet 650 MG PO (12:00)
--- NOTE | 2020-11-02 17:42 | ONC FU_ITS ---
[facility] Patient Note Patient: Mick Fritz Unit #: [id number]: 1955 Dictated By: Jose R YeungDate of Visit: Oct 28, 2020 Onc MED Follow-Up/Prog Note Chief Complaint: Rectal cancer. 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 In April 2019 he had been referred to Dr. Altamirano for excision of a skin lesion on his chest. He also was in need of screening colonoscopy. The skin lesion turned out to be a basal cell carcinoma. The colonoscopy showed a pedunculated polyp in the descending colon which was able to be removed endoscopically. Also noted was a malignant appearing mass involving two thirds of the circumference at the first rectal fold. 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 The rectal biopsy showed tubulovillous adenoma with focal high-grade dysplasia. As it was clearly a malignant appearing lesion, he then underwent sigmoidoscopy with a repeat biopsy on 05/15/2019. Pathology at that time was consistent with well to moderately differentiated adenocarcinoma. CT abdomen pelvis showed circumferential perirectal soft tissue thickening consistent with rectal neoplasm. Also noted was left perirectal lymphadenopathy and aortocaval lymphadenopathy consistent with metastatic disease with the largest aortocaval node measuring 2.0 cm and the left perirectal node measuring 2.2 cm. He was referred to Dr. Otto in [place] for further management, and he then undergo neoadjuvant chemoradiation utilizing capecitabine for chemosensitization. He apparently was lost to follow-up there after completing the radiation. He was admitted to [facility] on 10/29/2019 after presenting to the emergency room with abdominal pain and swelling. His CT abdomen/pelvis showed evidence of abundant ascites and omental carcinomatosis. There was abnormal wall thickening and enhancement of the loops of small bowel, possibly reflecting enteritis, but concerning for neoplastic infiltration of the wall of the loops of bowel. An apple core type lesion with marked wall thickening and narrowing was noted in the distal sigmoid colon/rectum. A new ill-defined 2 cm nodule in the dome of the liver was new and suspicious for metastatic disease. On 10/30/2019 he underwent paracentesis with removal of 2000 mL of fluid. The cytology was negative. Dr Edwards had seen him initially on 11/02/2019. At that point he was still in pretty good performance status. Biopsy was recommended to confirm the histology of his disease, particularly with the pattern of metastatic involvement and the fact that his CEA level was normal. As the liver lesion was not accessible for needle biopsy, he underwent CT directed needle biopsy of a peritoneal mass on 11/21/2019. Pathology has just become available, and it does show metastatic adenocarcinoma, CDX 2 positive, consistent with colonic primary. In the meantime, a next generation sequencing study had been requested on his primary tumor. It showed the tumor to be MSI stable and KRAS wild type. His other medical illnesses include hypertension and GERD. He has a remote history of smoking a pack of cigarettes daily for about 10 years. He had quit smoking cigarettes sometime in his early 20s, but he has continued smoking a cigar about 3 times a week. INTERIM HISTORY: On 11/29/2019 he began cycle 1 of palliative chemotherapy with modified FOLFOX in combination with panitumumab. At that point he had very poor oral intake and very marginal performance status. He required IV fluid support, but he was able to tolerate the treatment without significant acute toxicity. By day 5 he was neutropenic, but he recovered uneventfully with Neupogen. He began to show gradual improvement in his symptoms. He was then able to continue treatment at 2-week intervals with Neulasta administered prophylactically. He began his 6th cycle of treatment on 02/06/2020. At that point he was given a 1 level reduction in the oxaliplatin dosage and a 20% reduction in the 5-FU dosage due to thrombocytopenia. The panitumumab was put on hold due to worsening skin eruption. He continued with his cycle 7 treatment on 02/20/2020. He tolerated it well. With cycle 8, on 03/05/2020, Dr Edwards did restart the panitumumab at a reduced dosage of 4 mg/kg. Restaging CT of the abdomen/pelvis on 03/14/2020 showed evidence of interval response to therapy with resolution of previously described ascites and omental carcinomatosis. Also noted was resolution of the metastatic lesion in the dome of the liver. There was residual circumferential thickening involving the distal sigmoid colon and rectum. There was no evidence of disease progression. He continued with his 12th cycle of treatment on 04/30/2020. Beginning on 05/13/2020, it was opted to drop the chemotherapy and continue treatment with panitumumab monotherapy. Restaging CT scans on 06/20/2020 showed residual thickening involving the distal sigmoid colon and rectum, stable compared to the March 2020 CT and the October 2019 PET/CT. A 2.5 cm hepatic cyst along the undersurface of the right hepatic lobe appeared stable. There was mild diffuse fatty infiltration of the liver. There was no evidence of metastatic disease in the chest, abdomen, or pelvis. With those findings, he continued treatment with panitumumab at 2-week intervals. Mr. Fritz is here today for follow-up. He is due for cycle 13 Panitumumab. He continues to tolerate it well overall. He states that he has had one episode of dizziness that lasted about 30 minutes. He did not have any syncope. He states he had been working out in the yard/field and been exerting a lot. He states he went to bend over and was just really dizzy. He states it resolved after he sat down and rest for about 10 minutes. He denied any chest pain or palpitations with that episode. He denied any one-sided weakness, numbness speech or vision changes during that episode. He states it has not recurred. He states this happened probably 7 to 10 days ago. He denies any fever or chills. He has had no mouth sores, sore throat or difficulty swallowing. He has had no recurrence of the rash. He states he is doing well overall. He states he is doing all the things that he really wants to be doing although he tires but recovers easily with rest. He denies any pain. He denies any nausea or vomiting. He denies any diarrhea. His ECOG is 0. Past Medical History: Gastroesophageal reflux disease Hypertension Rectal cancer Past Surgical History: Liver biopsy Tonsillectomy Flu vaccine in 2020 - left deltoid Left side porthacatheter placement dr. altamirano in 2020 Sigmoidoscopy with biopsy of rectal mass in 2019 Colonoscopy in 2019 Excision of basal cell skin cancer in 2019 Allergies: No Known Allergies. Medications: PriLOSEC OTC 1 Tablet (of 20 mg) Tablet, enteric coated Oral daily Family History: Mr. Fritz's mother is alive. Mr. Fritz's father at age 92: heart disease, and type II diabetes. Mr. Fritz has 1 brother who is alive. He has 1 sister who is alive. Mother still living at age 89. Father with heart disease at age 92. He also had diabetes. A maternal aunt had breast cancer. His maternal grandfather had lung cancer. 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 Mr. Fritz quit smoking 46 years ago but had smoked 1.0 pack/day for 12 years. He drinks occasionally. He consumes 2 drinks/day 3 days/week. He has indicated exposure to the following products: cigars. Mr. Fritz reports the following support systems: lives with spouse, significant other, family, or friends and adequate transportation available for expected visits. His diet consists of regular meals. He indicates his activity level as: light exercise. 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 He has a history of smoking 1 pack of cigarettes daily for 10 years, but he had quit by sometime in his early 20s. He smokes a cigar about 3 times a week. Alcohol use averages 2 beers 3 days a week. Review Of Symptoms: Constitutional Denies fevers, chills, night sweats, excessive fatigue or weight loss. Denies fever or chills. Allergic/Immunologic No reactions. Eyes Denies significant visual changes. No diplopia. No amaurosis. ENMT Denies changes in hearing, sore throat, mouth sores, difficulty or changes in swallowing ability, and/or sinus drainage. Hematologic/Lymphatic Denies easy bruising or bleeding. The patient denies any tender or palpable lymph nodes. Respiratory Denies dyspnea on exertion, chest pain, cough or hemoptysis. Denies orthopnea. Cardiovascular Denies anginal chest pain, palpitations or orthopnea. Gastrointestinal Denies current nausea, vomiting, diarrhea, GI bleeding, or constipation. Denies change in bowel habits and/or stool color, no heartburn or early satiety. Genitourinary (M) Denies hematuria, dysuria, increased frequency, urgency, hesitancy or incontinence. Musculoskeletal Denies joint pain, swelling or redness. No decreased range of motion. Integumentary Denies chronic rashes, inflammation, ulcerations or skin changes. Neurologic Denies headache, blurred vision, and no areas of focal weakness or numbness. Normal gait. No sensory problems. 1 episode of dizziness about 1 week ago after stacking 3 ranks of wood, resolved with rest. Psychiatric Denies insomnia, depression, jeanette or mood swings. Vital Signs: Performed on Oct 28, 2020 10:51 Height - 70.00 in Weight - 196.6 lbs (HIGH) BSA - 2.07 sq.m BMI - 28.21 Temperature - 98.2 F (LOW) Pulse - 75 /min Respiration - 24 /min BP - 150/85 mm(hg) (HIGH) O2 Sat - 98 % Pain - 0,0 - Fully active, able to carry on all predisease activities without restrictions. (ECOG) Physical Examination: Constitutional Alert, oriented, no acute distress. Skin pink, warm and dry. Head Normocephalic; atraumatic. Eyes Conjunctivae and sclerae are clear and without icterus. Pupils are reactive and equal. ENMT No oral exudates, ulcers, masses, thrush or mucositis. Oropharynx clear. Tongue normal. Neck Supple without masses or thyromegaly. No jugular venous distension. Hematologic/Lymphatic No petechiae or purpura. No tender or palpable lymph nodes in the cervical or supraclavicular areas. Respiratory Lungs are clear to auscultation without rhonchi or wheezing. Cardiovascular Regular rate and rhythm of heart without murmurs,clicks, gallops or rubs. Abdomen Non-tender, non-distended, no masses or ascites. No guarding or rebound tenderness. No pulsatile masses. Back/Spine Non-tender to palpation. Extremities No visible deformities, no cyanosis, clubbing or edema. Musculoskeletal No tenderness or swelling, normal range of motion without obvious weakness. Integumentary No rashes or lesions. Neurologic No sensory or motor deficits, normal cerebellar function, normal gait. Psychiatric Alert and oriented times three. Coherent speech. Verbalizes understanding of our discussions today. Laboratory:Test performed on Oct 28, 2020 09:30 Sodium 139 mmol/L Potassium 3.7 mmol/L Chloride 103 mmol/L CO2 26 mmol/L Anion Gap 13.7 BUN 10 mg/dL Creatinine 0.6 mg/dL Cr Clearance (Est) 144.1000 mL/min eGFR 134.4 mL/min Glucose 95 mg/dL Osmolality - Calculated 287 mOsm/kg Calcium 8.2 mg/dL Protein, Total 6.1 g/dL Albumin 4.1 g/dL Globulin 2.0 g/dL Bilirubin, Total 1.8 mg/dL ALT (SGPT) 23 U/L AST (SGOT) 23 U/L Alkaline Phosphatase 157 IU/L WBC 6.1 10 3/uL RBC 5.08 10 6/uL HGB 15.7 g/dL HCT 46.0 % MCV 90.6 fL MCH 30.9 pg MCHC 34.1 g/dL RDW 13.4 % Platelet Count 151 10 3/cmm MPV 10.1 fL Neutrophils 4.52 10 3/uL Lymphocytes 0.8 10 3/uL Monocytes 0.5 10 3/uL Eosinophils 0.2 10 3/uL Basophils 0.0 10 3/uL Neutrophil % 74.5 % Lymphocyte % 13.8 % Monocyte % 7.9 % Eosinophil % 2.6 % Basophils % 0.7 % NRBC % 0 % Test performed on Aug 04, 2020 08:40 CEA 1.6 ng/mL Test performed on Jul 08, 2020 00:00 Manual Diff Cancelled via OM: Cancelled in Connected System Impression: 1. Patient with well to moderately differentiated adenocarcinoma of the rectum. He underwent chemoradiation utilizing capecitabine for chemosensitization following initial diagnosis of the rectal cancer in May 2019. 2. He had subsequent disease progression to stage IVC (T3, N2, M1c) with CT evidence of metastatic involvement in the peritoneum and liver. He had associated ascites. CT-directed needle biopsy of a right peritoneal mass on 11/21/2019 confirmed adenocarcinoma consistent with colorectal primary. The tumor was confirmed to be MSI stable and KRAS wild-type. His other medical illnesses include: 3. Hypertension. 4. GERD. On 11/29/2019 he began cycle 1 of palliative chemotherapy with modified FOLFOX in combination with panitumumab. He was able to tolerate it with acceptable toxicity and he then continued treatment at 2-week intervals. During subsequent follow-up there was significant improvement in his clinical status. Side effects with the treatment had included neutropenia and skin eruption. He had only minimal neuropathy. Beginning with cycle 6, on 02/06/2020, he was given a 1 level reduction in the oxaliplatin dosage and a 20% reduction in the 5-FU dosage due to thrombocytopenia. The panitumumab was put on hold due to worsening skin eruption. He continued with his cycle 8 treatment on 03/05/2020. With that cycle, the panitumumab was restarted at a reduced dosage of 4 mg/kg. During subsequent followup the skin eruption was tolerable, and he had otherwise tolerated the treatment very well. He has had evidence of significant response by restaging CT scan. As of 04/30/2020 he had completed 12 cycles of treatment. At that point he was doing well clinically, and beginning on 05/13/2020 I opted to drop the chemotherapy and continue with panitumumab monotherapy. During subsequent follow-up he had further improvement in his performance status. He appeared to have an excellent treatment response on his restaging CT scans in June 2020. He has since then continued panitumumab monotherapy at 2-week intervals. He still has some skin eruption with it, but it is tolerable. Overall, he has been doing very well clinically, and thus far there has been no evidence of disease progression. Plan: 1. Metastatic rectal cancer with involvement in the peritoneum and liver: Proceed with Panitumumab single agent today as planned. 2. Today's labs reviewed in detail and discussed with Mr. Fritz and a copy was given to him. WBC 6.1, hemoglobin 15.7, platelets 151,000 ANC is 4520. Potassium 3.7 creatinine 0.6 LFTs are normal alk phos is stable at 157. His last CEA was on September 15, 2020 at which time was 1.7. 3. We will plan to continue the Panitumumab every 2 weeks and plan to see him back in 6 weeks with follow-up CT of the chest abdomen pelvis with contrast to compare to June 2020 scans. 4. Mr. Fritz was encouraged to contact us in interim should questions or problems arise. Signed By: Jose R Yeung-, AOCNP Tigao Edwards MD <<Signature on File>>
== END 2020-11-13 23:59 | disposition home or self-care (01) ==
LOC: ONCMED 05:23
PROVIDERS: PCP Family Medicine; Visit Provider Nurse Practitioner
DX: Z51.11 Encounter for antineoplastic chemotherapy (principal); C20 Malignant neoplasm of rectum; C78.6 Secondary malignant neoplasm of retroperitoneum and peritoneum; C78.7 Secondary malignant neoplasm of liver and intrahepatic bile duct; R42 Dizziness and giddiness; R21 Rash and other nonspecific skin eruption; T45.1X5D Adverse effect of antineoplastic and immunosuppressive drugs, subsequent encounter; F17.290 Nicotine dependence, other tobacco product, uncomplicated; I10 Essential (primary) hypertension; K21.9 Gastro-esophageal reflux disease without esophagitis; Z92.3 Personal history of irradiation; Z79.899 Other long term (current) drug therapy
CPT/HCPCS: 80053; 85025; 96374; 96375; 96413; 99214; J3490; J7050; J9303

== ENCOUNTER 2020-12-09 05:39 | Outpatient (RCR) | payer MEDICARE, OTHER, SELFPAY ==
--- NOTE | 2020-11-21 09:05 | CT_ITS ---
WS: [id number] CT CHEST, ABDOMEN, AND PELVIS TECHNIQUE: Contrast-enhanced CT of the chest, abdomen, and pelvis with coronal and sagittal reformatt ed images. CLINICAL INFORMATION: MALIGNANT NEOPLASM OF RECTUM COMPARISON: CT for 06/20/2020 and 03/14/2020 DLP: 2519.[address] scans at [facility] use at least one of these dose optimization techniques: automat ed exposure control; mA and/or kV adjustment per patient size (includes targeted exams where dose is matched to clinical indication); or iterative reconstruction. CT CHEST: Moderate chronic emphysematous changes. No acute pulmonary infiltrates. No suspicious pulmonary paren chymal opacities. No focal consolidation or pleural fluid. Normal caliber thoracic aorta aorta and pr oximal main pulmonary arteries. No mediastinal or hilar lymphadenopathy. No axillary lymphadenopathy. Heterogeneous enlarged left thyroid gland unchanged in appearance. A few incidental calcified granul omas. CT ABDOMEN AND PELVIS: Stable 2.5 cm hepatic cyst right hepatic lobe. Normal gallbladder. Normal spleen. Pancreas is unremarkable. Normal GE junction. Adrenal glands are normal. Normal renal parenchymal enhancement. Peripelvic renal cysts. 2 tiny left renal cysts. Aortic calcification. No abdominal or pelvic lymphadenopathy. No inguinal lymphadenopathy. Sigmoid diverticulosis. Mild res idual thickening involving the sigmoid colon and rectum unchanged in appearance consistent with treat ed neoplasm. Slight anterolisthesis L4 on L5. Sclerotic left iliac lesion unchanged since . CT/CT chest abd pel w con* IMPRESSION: 1. No evidence of metastatic disease in the chest abdomen or pelvis. 2. Stable mild residual thickening involving the distal sigmoid colon and rect um consistent with treated neoplasm. 3. Sigmoid diverticulosis. 4. No other significant changes from previous.
[2020-11-21] MEDS: iohexol 300 mg/mL 50 mL Btl PO (10:36)
[2020-11-21] MEDS: iohexol 300 mg/mL 100 mL Btl IV (10:52)
[2020-11-25] MEDS: sodium chloride 0.9% 250 ML IV (11:55)
[2020-11-25] MEDS: famotidine 20 mg/2 mL INJ IVP (11:55)
[2020-11-25] MEDS: acetaminophen 325 mg Tablet 650 MG PO (11:56)
[2020-12-08 11:19] LABS: Basophils % 0.6 %; Eosinophils # 0.1 10^3/uL (0.0-0.8); Eosinophils % 2.3 %; Hematocrit 47.9 % (42.0-52.0); Hemoglobin 16.2 g/dL (11.7-16.6); Lymphocytes # 0.9 10^3/uL (0.8-4.8); Mean Corpuscular HGB Conc 33.8 g/dL (30.0-36.0); Mean Corpuscular Hemoglobin 30.9 pg (28.0-34.0); Mean Corpuscular Volume 91.4 fL (80-94); Monocytes # 0.5 10^3/uL (0.2-0.9); Neutrophils # 3.69 10^3/uL (1.8-7.7); Neutrophils % 70.7 %; Nucleated Red Blood Cells % 0 %; Platelet Count 169 10^3/cmm (130-400); Red Blood Count 5.24 10^6/uL (4.1-5.3); Red Cell Distribution Width 13.7 % (12.1-15.1); White Blood Count 5.2 10^3/uL (4.0-10.0)
[2020-12-08 11:42] LABS: Alanine Aminotransferase 27 U/L (0-41); Albumin Level 4.3 g/dL (3.5-5.2); Alkaline Phosphatase 167 IU/L (40-130); Anion Gap 14.1 (5-19); Aspartate Amino Transferase 26 U/L (0-40); Blood Urea Nitrogen 9 mg/dL (8-23); Calcium 8.3 mg/dL (8.5-10.5); Carbon Dioxide 27 mmol/L (22-29); Chloride 105 mmol/L (98-107); Glomerular Filtration Rate 96.4 mL/min (90-130); Glucose 103 mg/dL (65-115); Osmolality Calculated 293 mOsm/kg (285-295); Potassium 4.1 mmol/L (3.5-5.1); Sodium 142 mmol/L (136-145); Total Bilirubin 1.9 mg/dL (0.15-1.2)
[2020-12-08 13:27] LABS: Carcinoembryonic Antigen 1.9 ng/mL (0.0-4.7)
[2020-12-08 13:44] LABS: Globulin 2.1 g/dL (1.3-4.6); Total Protein 6.4 g/dL (6.6-8.7)
[2020-12-09] MEDS: famotidine 20 mg/2 mL INJ IVP (09:44)
[2020-12-09] MEDS: acetaminophen 325 mg Tablet 650 MG PO (09:44)
[2020-12-09] MEDS: sodium chloride 0.9% 250 ML IV (09:52)
--- NOTE | 2020-12-13 13:14 | ONC FU_ITS ---
Dr. Edwards Patient Follow-Up Note Patient: Mick Fritz Unit #: [id number]: [id number] Dicatated By: Tiago Edwards M.D.Date of Visit:Dec 09, 2020 Onc Med Follow-up/Prog Note Chief Complaint: Rectal cancer. 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 In April 2019 he had been referred to Dr. Altamirano for excision of a skin lesion on his chest. He also was in need of screening colonoscopy. The skin lesion turned out to be a basal cell carcinoma. The colonoscopy showed a pedunculated polyp in the descending colon which was able to be removed endoscopically. Also noted was a malignant appearing mass involving two thirds of the circumference at the first rectal fold. 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 The rectal biopsy showed tubulovillous adenoma with focal high-grade dysplasia. As it was clearly a malignant appearing lesion, he then underwent sigmoidoscopy with a repeat biopsy on 05/15/2019. Pathology at that time was consistent with well to moderately differentiated adenocarcinoma. CT abdomen pelvis showed circumferential perirectal soft tissue thickening consistent with rectal neoplasm. Also noted was left perirectal lymphadenopathy and aortocaval lymphadenopathy consistent with metastatic disease with the largest aortocaval node measuring 2.0 cm and the left perirectal node measuring 2.2 cm. He was referred to Dr. Otto in [place] for further management, and he then undergo neoadjuvant chemoradiation utilizing capecitabine for chemosensitization. He apparently was lost to follow-up there after completing the radiation. He was admitted to [facility] on 10/29/2019 after presenting to the emergency room with abdominal pain and swelling. His CT abdomen/pelvis showed evidence of abundant ascites and omental carcinomatosis. There was abnormal wall thickening and enhancement of the loops of small bowel, possibly reflecting enteritis, but concerning for neoplastic infiltration of the wall of the loops of bowel. An apple core type lesion with marked wall thickening and narrowing was noted in the distal sigmoid colon/rectum. A new ill-defined 2 cm nodule in the dome of the liver was new and suspicious for metastatic disease. On 10/30/2019 he underwent paracentesis with removal of 2000 mL of fluid. The cytology was negative. I had seen him initially on 11/02/2019. At that point he was still in pretty good performance status. Biopsy was recommended to confirm the histology of his disease, particularly with the pattern of metastatic involvement and the fact that his CEA level was normal. As the liver lesion was not accessible for needle biopsy, he underwent CT directed needle biopsy of a peritoneal mass on 11/21/2019. Pathology has just become available, and it does show metastatic adenocarcinoma, CDX 2 positive, consistent with colonic primary. In the meantime, a next generation sequencing study had been requested on his primary tumor. It showed the tumor to be MSI stable and KRAS wild type. His other medical illnesses include hypertension and GERD. He has a remote history of smoking a pack of cigarettes daily for about 10 years. He had quit smoking cigarettes sometime in his early 20s, but he has continued smoking a cigar about 3 times a week. INTERIM HISTORY: On 11/29/2019 he began cycle 1 of palliative chemotherapy with modified FOLFOX in combination with panitumumab. At that point he had very poor oral intake and very marginal performance status. He required IV fluid support, but he was able to tolerate the treatment without significant acute toxicity. By day 5 he was neutropenic, but he recovered uneventfully with Neupogen. He began to show gradual improvement in his symptoms. He was then able to continue treatment at 2-week intervals with Neulasta administered prophylactically. He began his 6th cycle of treatment on 02/06/2020. At that point he was given a 1 level reduction in the oxaliplatin dosage and a 20% reduction in the 5-FU dosage due to thrombocytopenia. The panitumumab was put on hold due to worsening skin eruption. He continued with his cycle 7 treatment on 02/20/2020. He tolerated it well. With cycle 8, on 03/05/2020, I did restart the panitumumab at a reduced dosage of 4 mg/kg. Restaging CT of the abdomen/pelvis on 03/14/2020 showed evidence of interval response to therapy with resolution of previously described ascites and omental carcinomatosis. Also noted was resolution of the metastatic lesion in the dome of the liver. There was residual circumferential thickening involving the distal sigmoid colon and rectum. There was no evidence of disease progression. He continued with his 12th cycle of treatment on 04/30/2020. Beginning on 05/13/2020 I opted to drop the chemotherapy and continue treatment with panitumumab monotherapy. Restaging CT scans on 06/20/2020 showed residual thickening involving the distal sigmoid colon and rectum, stable compared to the March 2020 CT and the October 2019 PET/CT. A 2.5 cm hepatic cyst along the undersurface of the right hepatic lobe appeared stable. There was mild diffuse fatty infiltration of the liver. There was no evidence of metastatic disease in the chest, abdomen, or pelvis. With those findings, he continued treatment with panitumumab at 2-week intervals. Restaging CT scans on 11/21/2020 showed no evidence for metastatic disease in the chest, abdomen, or pelvis. There was stable mild residual thickening involving the distal sigmoid colon and rectum. He is seen for a scheduled visit. He has been feeling good generally. He says he has been a little tired lately, but he still has normal activity. ECOG score is 0. Appetite has been good. He has no fever or night sweats. He has had no mouth sores. He has occasional cough. He does not complain of shortness of breath or chest pain. He currently has no GI or complaints. His acid reflux symptoms have been adequately managed with omeprazole. He has some joint pain, mainly in the wrists. He has not been having headache. He had been having positional vertigo for about 4 weeks, but that recently seems to have resolved. He has just a little bit of residual numbness on his fingertips. Medications: PriLOSEC OTC 1 Tablet (of 20 mg) Tablet, enteric coated Oral daily Allergies: No Known Allergies. Vital Signs: Performed on Dec 09, 2020 09:08 Height - 70.00 in Weight - 185.6 lbs (LOW) BSA - 2.02 sq.m BMI - 26.63 Temperature - 97.6 F (LOW) Pulse - 76 /min Respiration - 18 /min BP - 130/101 mm(hg) O2 Sat - 98 % Pain - 0 Physical Examination: Constitutional - He looks good generally, Eyes - Sclerae nonicteric. Conjunctivae clear, ENMT - No lesions noted in the oral cavity, Hematologic/Lymphatic - No cervical, clavicular, or axillary adenopathy, Respiratory - Lungs are clear with good air movement bilaterally. There is no audible wheezing, Cardiovascular - Heart rhythm is regular. There is no murmur, gallop, or rub noted, Abdomen - Soft. Liver and spleen are not enlarged. There is no abdominal mass or ascites noted. There is no inguinal adenopathy, Extremities - No edema, Integumentary - There is only miminal residual skin eruption, Neurologic - No focal neurologic deficits noted. Lab/Imaging: CBC shows hemoglobin 16.2 g, white blood cell count 5200, and platelet count 169,000. Comprehensive metabolic profile is unremarkable except for mildly elevated alkaline phosphatase at 167/130 IU/L. Problem List: 1. Well to moderately differentiated adenocarcinoma of the rectum. He underwent chemoradiation utilizing capecitabine for chemosensitization following initial diagnosis of the rectal cancer in May 2019. 2. He had subsequent disease progression to stage IVC (T3, N2, M1c) with CT evidence of metastatic involvement in the peritoneum and liver. He had associated ascites. CT-directed needle biopsy of a right peritoneal mass on 11/21/2019 confirmed adenocarcinoma consistent with colorectal primary. The tumor was confirmed to be MSI stable and KRAS wild-type. 3. Hypertension. 4. GERD. Problems Addressed with this Encounter and Plan: Well to moderately differentiated adenocarcinoma of the rectum. He had undergone chemoradiation utilizing capecitabine for chemosensitization following initial diagnosis of the rectal cancer in May 2019. He had subsequent disease progression to stage IVC (T3, N2, M1c) with CT evidence of metastatic involvement in the peritoneum and liver. CT-directed needle biopsy of a right peritoneal mass on 11/21/2019 confirmed adenocarcinoma consistent with colorectal primary. The tumor was confirmed to be MSI stable and KRAS wild-type. In November 2019 began palliative chemotherapy with modified FOLFOX in combination with panitumumab. During treatment he required dose reductions in the chemotherapy due to neuropathy and thrombocytopenia, and he required treatment interruption and subsequent dose reduction in the panitumumab due to severe skin eruption. However, he had a very good clinical response to the treatment. As of April 2020, following completion of 12 cycles of chemotherapy, his treatment was transitioned to panitumumab monotherapy at a dosage of 4 mg/kg by IV infusion every 2 weeks. During follow-up he has continued to tolerate the panitumumab monotherapy very well. He has had very good response clinically and by follow-up CT scan, thus far with no evidence of disease progression. He will continue panitumumab 4 mg/kg by IV infusion every 2 weeks. He will be scheduled for a followup visit in 6 weeks. Signed By: Tiago Edwards M.D. <<Signature on File>>
== END 2020-12-14 23:59 | disposition home or self-care (01) ==
LOC: ONCMED 05:39
PROVIDERS: PCP Family Medicine; Visit Provider Internal Medicine Medical Oncology
DX: Z51.11 Encounter for antineoplastic chemotherapy (principal); C20 Malignant neoplasm of rectum; C78.6 Secondary malignant neoplasm of retroperitoneum and peritoneum; D70.1 Agranulocytosis secondary to cancer chemotherapy; T45.1X5A Adverse effect of antineoplastic and immunosuppressive drugs, initial encounter; D69.59 Other secondary thrombocytopenia; K57.30 Diverticulosis of large intestine without perforation or abscess without bleeding; I10 Essential (primary) hypertension; K21.9 Gastro-esophageal reflux disease without esophagitis; Z79.899 Other long term (current) drug therapy
CPT/HCPCS: 36591; 71260; 74177; 80053; 82378; 85025; 96375; 96413; 99214; J3490; J7050; J9303; Q9967

== ENCOUNTER 2021-01-06 05:27 | Outpatient (RCR) | payer MEDICARE, OTHER, SELFPAY ==
[2020-12-23] MEDS: acetaminophen 325 mg Tablet 650 MG PO (14:54)
[2020-12-23] MEDS: famotidine 20 mg/2 mL INJ IVP (14:55)
[2021-01-06] MEDS: acetaminophen 325 mg Tablet 650 MG PO (14:15)
[2021-01-06] MEDS: famotidine 20 mg/2 mL INJ IVP (14:20)
== END 2021-01-11 23:59 | disposition home or self-care (01) ==
LOC: ONCMED 05:27
PROVIDERS: PCP Family Medicine; Visit Provider Internal Medicine Medical Oncology
DX: Z51.11 Encounter for antineoplastic chemotherapy (principal); C20 Malignant neoplasm of rectum; C78.6 Secondary malignant neoplasm of retroperitoneum and peritoneum; D70.1 Agranulocytosis secondary to cancer chemotherapy; T45.1X5A Adverse effect of antineoplastic and immunosuppressive drugs, initial encounter
CPT/HCPCS: 96375; 96413; J3490; J7050; J9303

== ENCOUNTER 2021-02-03 05:35 | Outpatient (RCR) | payer MEDICARE, OTHER, SELFPAY ==
[2021-01-20 12:17] LABS: Basophils % 0.6 %; Eosinophils # 0.2 10^3/uL (0.0-0.8); Eosinophils % 3.4 %; Hematocrit 45.5 % (42.0-52.0); Hemoglobin 15.3 g/dL (11.7-16.6); Lymphocytes # 1.1 10^3/uL (0.8-4.8); Lymphocytes % 20.5 %; Mean Corpuscular HGB Conc 33.6 g/dL (30.0-36.0); Mean Corpuscular Hemoglobin 30.8 pg (28.0-34.0); Mean Corpuscular Volume 91.7 fL (80-94); Monocytes # 0.5 10^3/uL (0.2-0.9); Monocytes % 8.9 %; Neutrophils # 3.55 10^3/uL (1.8-7.7); Nucleated Red Blood Cells % 0 %; Platelet Count 166 10^3/cmm (130-400); Red Blood Count 4.96 10^6/uL (4.1-5.3); Red Cell Distribution Width 13.4 % (12.1-15.1); White Blood Count 5.4 10^3/uL (4.0-10.0)
[2021-01-20 12:42] LABS: Alanine Aminotransferase 28 U/L (0-41); Albumin Level 4.3 g/dL (3.5-5.2); Alkaline Phosphatase 149 IU/L (40-130); Anion Gap 13.5 (5-19); Aspartate Amino Transferase 26 U/L (0-40); Blood Urea Nitrogen 9 mg/dL (8-23); Calcium 8.2 mg/dL (8.5-10.5); Carbon Dioxide 26 mmol/L (22-29); Chloride 104 mmol/L (98-107); Globulin 2.3 g/dL (1.3-4.6); Glomerular Filtration Rate 112.5 mL/min (90-130); Glucose 113 mg/dL (65-115); Osmolality Calculated 289 mOsm/kg (285-295); Potassium 3.5 mmol/L (3.5-5.1); Sodium 140 mmol/L (136-145); Total Bilirubin 1.5 mg/dL (0.15-1.2); Total Protein 6.6 g/dL (6.6-8.7)
[2021-01-20] MEDS: sodium chloride 0.9% 250 ML 75 ML IV (13:50)
[2021-01-20] MEDS: famotidine 20 mg/2 mL INJ IVP (13:50)
[2021-01-20] MEDS: acetaminophen 325 mg Tablet 650 MG PO (13:50)
--- NOTE | 2021-01-20 20:08 | ONC FU_ITS ---
Dr. Edwards Patient Follow-Up Note Patient: Mick Fritz Unit #: [id number]: [id number] Dicatated By: Tiago Edwards M.D.Date of Visit:Jan 20, 2021 Onc Med Follow-up/Prog Note Chief Complaint: Rectal cancer. 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 In April 2019 he had been referred to Dr. Altamirano for excision of a skin lesion on his chest. He also was in need of screening colonoscopy. The skin lesion turned out to be a basal cell carcinoma. The colonoscopy showed a pedunculated polyp in the descending colon which was able to be removed endoscopically. Also noted was a malignant appearing mass involving two thirds of the circumference at the first rectal fold. 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 The rectal biopsy showed tubulovillous adenoma with focal high-grade dysplasia. As it was clearly a malignant appearing lesion, he then underwent sigmoidoscopy with a repeat biopsy on 05/15/2019. Pathology at that time was consistent with well to moderately differentiated adenocarcinoma. CT abdomen pelvis showed circumferential perirectal soft tissue thickening consistent with rectal neoplasm. Also noted was left perirectal lymphadenopathy and aortocaval lymphadenopathy consistent with metastatic disease with the largest aortocaval node measuring 2.0 cm and the left perirectal node measuring 2.2 cm. He was referred to Dr. Otto in [place] for further management, and he then undergo neoadjuvant chemoradiation utilizing capecitabine for chemosensitization. He apparently was lost to follow-up there after completing the radiation. He was admitted to [facility] on 10/29/2019 after presenting to the emergency room with abdominal pain and swelling. His CT abdomen/pelvis showed evidence of abundant ascites and omental carcinomatosis. There was abnormal wall thickening and enhancement of the loops of small bowel, possibly reflecting enteritis, but concerning for neoplastic infiltration of the wall of the loops of bowel. An apple core type lesion with marked wall thickening and narrowing was noted in the distal sigmoid colon/rectum. A new ill-defined 2 cm nodule in the dome of the liver was new and suspicious for metastatic disease. On 10/30/2019 he underwent paracentesis with removal of 2000 mL of fluid. The cytology was negative. I had seen him initially on 11/02/2019. At that point he was still in pretty good performance status. Biopsy was recommended to confirm the histology of his disease, particularly with the pattern of metastatic involvement and the fact that his CEA level was normal. As the liver lesion was not accessible for needle biopsy, he underwent CT directed needle biopsy of a peritoneal mass on 11/21/2019. Pathology has just become available, and it does show metastatic adenocarcinoma, CDX 2 positive, consistent with colonic primary. In the meantime, a next generation sequencing study had been requested on his primary tumor. It showed the tumor to be MSI stable and KRAS wild type. His other medical illnesses include hypertension and GERD. He has a remote history of smoking a pack of cigarettes daily for about 10 years. He had quit smoking cigarettes sometime in his early 20s, but he has continued smoking a cigar about 3 times a week. INTERIM HISTORY: On 11/29/2019 he began cycle 1 of palliative chemotherapy with modified FOLFOX in combination with panitumumab. At that point he had very poor oral intake and very marginal performance status. He required IV fluid support, but he was able to tolerate the treatment without significant acute toxicity. By day 5 he was neutropenic, but he recovered uneventfully with Neupogen. He began to show gradual improvement in his symptoms. He was then able to continue treatment at 2-week intervals with Neulasta administered prophylactically. He began his 6th cycle of treatment on 02/06/2020. At that point he was given a 1 level reduction in the oxaliplatin dosage and a 20% reduction in the 5-FU dosage due to thrombocytopenia. The panitumumab was put on hold due to worsening skin eruption. He continued with his cycle 7 treatment on 02/20/2020. He tolerated it well. With cycle 8, on 03/05/2020, I did restart the panitumumab at a reduced dosage of 4 mg/kg. Restaging CT of the abdomen/pelvis on 03/14/2020 showed evidence of interval response to therapy with resolution of previously described ascites and omental carcinomatosis. Also noted was resolution of the metastatic lesion in the dome of the liver. There was residual circumferential thickening involving the distal sigmoid colon and rectum. There was no evidence of disease progression. He continued with his 12th cycle of treatment on 04/30/2020. Beginning on 05/13/2020 I opted to drop the chemotherapy and continue treatment with panitumumab monotherapy. Restaging CT scans on 06/20/2020 showed residual thickening involving the distal sigmoid colon and rectum, stable compared to the March 2020 CT and the October 2019 PET/CT. A 2.5 cm hepatic cyst along the undersurface of the right hepatic lobe appeared stable. There was mild diffuse fatty infiltration of the liver. There was no evidence of metastatic disease in the chest, abdomen, or pelvis. Restaging CT scans on 11/21/2020 showed no evidence for metastatic disease in the chest, abdomen, or pelvis. There was stable mild residual thickening involving the distal sigmoid colon and rectum. With those findings, he continued treatment with panitumumab at 2-week intervals. He is seen for a scheduled visit. He has been feeling pretty good generally, though lately his energy has not been as good. He recently has had a head cold with sore throat and stuffy nose, but he is getting over it now. His ECOG score is 1. He has good appetite. He does not have fever or night sweats. He has had just a twinge of cough. He does not complain of shortness of breath or chest pain. He has no GI complaints. He has noted improvement in his bladder function. He has normal aches and pains . He also has sore hips when he first gets up in the morning, but it improves with activity. He does not complain of headache or dizziness. He still has numbness/tingling in his fingertips. He has just a mild skin eruption now. Medications: PriLOSEC OTC 1 Tablet (of 20 mg) Tablet, enteric coated Oral daily Allergies: No Known Allergies. Vital Signs: Performed on Jan 20, 2021 13:12 Height - 70.00 in Weight - 193.4 lbs (HIGH) BSA - 2.06 sq.m BMI - 27.75 Temperature - 97.0 F (LOW) Pulse - 67 /min Respiration - 18 /min BP - 138/87 mm(hg) O2 Sat - 99 % Pain - 0 Fatigue - 0 Physical Examination: Constitutional - He looks pretty good generally, Eyes - Sclerae nonicteric. Conjunctivae clear, ENMT - No lesions noted in the oral cavity, Hematologic/Lymphatic - No cervical, clavicular, or axillary adenopathy, Respiratory - Lungs are clear with good air movement bilaterally, Cardiovascular - Heart rhythm is regular. There is no murmur, gallop, or rub noted, Abdomen - Soft. Liver and spleen are not enlarged. There is no abdominal mass or ascites noted. There is no inguinal adenopathy, Extremities - No edema, Integumentary - There is a mild, residual skin eruption which is mainly on the neck and upper chest, Neurologic - No focal neurologic deficits noted. Lab/Imaging: Test performed on Jan 20, 2021 11:30 Sodium 140 mmol/L Potassium 3.5 mmol/L Chloride 104 mmol/L CO2 26 mmol/L Anion Gap 13.5 BUN 9 mg/dL Creatinine 0.7 mg/dL Cr Clearance (Est) 127.06 mL/min eGFR 112.5 mL/min Glucose 113 mg/dL Osmolality - Calculated 289 mOsm/kg Calcium 8.2 mg/dL Protein, Total 6.6 g/dL Albumin 4.3 g/dL Globulin 2.3 g/dL Bilirubin, Total 1.5 mg/dL ALT (SGPT) 28 U/L AST (SGOT) 26 U/L Alkaline Phosphatase 149 IU/L WBC 5.4 10 3/uL RBC 4.96 10 6/uL HGB 15.3 g/dL HCT 45.5 % MCV 91.7 fL MCH 30.8 pg MCHC 33.6 g/dL RDW 13.4 % Platelet Count 166 10 3/cmm MPV 11.0 fL Neutrophils 3.55 10 3/uL Lymphocytes 1.1 10 3/uL Monocytes 0.5 10 3/uL Eosinophils 0.2 10 3/uL Basophils 0.0 10 3/uL Neutrophil % 66.0 % Lymphocyte % 20.5 % Monocyte % 8.9 % Eosinophil % 3.4 % Basophils % 0.6 % NRBC % 0 % Problem List: 1. Well to moderately differentiated adenocarcinoma of the rectum. He underwent chemoradiation utilizing capecitabine for chemosensitization following initial diagnosis of the rectal cancer in May 2019. 2. He had subsequent disease progression to stage IVC (T3, N2, M1c) with CT evidence of metastatic involvement in the peritoneum and liver. He had associated ascites. CT-directed needle biopsy of a right peritoneal mass on 11/21/2019 confirmed adenocarcinoma consistent with colorectal primary. The tumor was confirmed to be MSI stable and KRAS wild-type. 3. Hypertension. 4. GERD. Problems Addressed with this Encounter and Plan: Patient with well to moderately differentiated adenocarcinoma of the rectum. He had undergone chemoradiation utilizing capecitabine for chemosensitization following initial diagnosis of the rectal cancer in May 2019. He had subsequent disease progression to stage IVC (T3, N2, M1c) with CT evidence of metastatic involvement in the peritoneum and liver. CT-directed needle biopsy of a right peritoneal mass on 11/21/2019 confirmed adenocarcinoma consistent with colorectal primary. The tumor was confirmed to be MSI stable and KRAS wild-type. In November 2019 began palliative chemotherapy with modified FOLFOX in combination with panitumumab. During treatment he required dose reductions in the chemotherapy due to neuropathy and thrombocytopenia, and he required treatment interruption and subsequent dose reduction in the panitumumab due to severe skin eruption. However, he had a very good clinical response to the treatment. As of April 2020, following completion of 12 cycles of chemotherapy, his treatment was transitioned to panitumumab monotherapy at a dosage of 4 mg/kg by IV infusion every 2 weeks. During follow-up he has continued to tolerate the panitumumab monotherapy very well. He has had very good response clinically and by follow-up CT scan, thus far with no evidence of disease progression. He will continue panitumumab 4 mg/kg by IV infusion every 2 weeks. He will be scheduled for a followup visit in 6 weeks. Signed By: Tiago Edwards M.D. <<Signature on File>>
[2021-02-03] MEDS: famotidine 20 mg/2 mL INJ IVP (08:53)
[2021-02-03] MEDS: sodium chloride 0.9% 250 ML 75 ML IV (08:53)
[2021-02-03] MEDS: acetaminophen 325 mg Tablet 650 MG PO (08:55)
== END 2021-02-11 23:59 | disposition home or self-care (01) ==
LOC: ONCMED 05:35
PROVIDERS: PCP Family Medicine; Visit Provider Internal Medicine Medical Oncology
DX: Z51.11 Encounter for antineoplastic chemotherapy (principal); C20 Malignant neoplasm of rectum; C78.6 Secondary malignant neoplasm of retroperitoneum and peritoneum; D70.1 Agranulocytosis secondary to cancer chemotherapy; T45.1X5A Adverse effect of antineoplastic and immunosuppressive drugs, initial encounter; D69.59 Other secondary thrombocytopenia; I10 Essential (primary) hypertension; K21.9 Gastro-esophageal reflux disease without esophagitis; Z79.899 Other long term (current) drug therapy
CPT/HCPCS: 80053; 85025; 96375; 96413; 99214; J3490; J7050; J9303

== ENCOUNTER 2021-03-03 05:34 | Outpatient (RCR) | payer MEDICARE, OTHER, SELFPAY ==
[2021-02-17] MEDS: acetaminophen 325 mg Tablet 650 MG PO (08:32)
[2021-02-17] MEDS: famotidine 20 mg/2 mL INJ IVP (08:40)
[2021-02-17] MEDS: sodium chloride 0.9% 250 ML IV (08:40)
[2021-03-03 08:41] LABS: Basophils % 0.7 %; Eosinophils # 0.1 10^3/uL (0.0-0.8); Eosinophils % 2.2 %; Hemoglobin 15.4 g/dL (11.7-16.6); Lymphocytes % 16.9 %; Mean Corpuscular HGB Conc 33.5 g/dL (30.0-36.0); Mean Corpuscular Hemoglobin 30.8 pg (28.0-34.0); Mean Platelet Volume 10.4 fL (7.4-10.4); Monocytes # 0.5 10^3/uL (0.2-0.9); Monocytes % 8.5 %; Neutrophils # 4.24 10^3/uL (1.8-7.7); Neutrophils % 70.9 %; Nucleated Red Blood Cells % 0 %; Platelet Count 178 10^3/cmm (130-400); Red Cell Distribution Width 13.2 % (12.1-15.1)
[2021-03-03 08:56] LABS: Alanine Aminotransferase 21 U/L (0-41); Albumin Level 4.4 g/dL (3.5-5.2); Alkaline Phosphatase 151 IU/L (40-130); Aspartate Amino Transferase 22 U/L (0-40); Blood Urea Nitrogen 10 mg/dL (8-23); Calcium 7.3 mg/dL (8.5-10.5); Carbon Dioxide 25 mmol/L (22-29); Chloride 103 mmol/L (98-107); Globulin 2.1 g/dL (1.3-4.6); Glomerular Filtration Rate 134.4 mL/min (90-130); Glucose 96 mg/dL (65-115); Osmolality Calculated 283 mOsm/kg (285-295); Sodium 137 mmol/L (136-145); Total Bilirubin 1.2 mg/dL (0.15-1.2); Total Protein 6.5 g/dL (6.6-8.7)
--- NOTE | 2021-03-15 20:24 | ONC FU_ITS ---
[facility] Patient Note Patient: Mick Fritz Unit #: [id number]: [id number] Dictated By: Jose R YeungDate of Visit: Mar 03, 2021 Onc MED Follow-Up/Prog Note Chief Complaint: Rectal cancer. 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 In April 2019 he had been referred to Dr. Altamirano for excision of a skin lesion on his chest. He also was in need of screening colonoscopy. The skin lesion turned out to be a basal cell carcinoma. The colonoscopy showed a pedunculated polyp in the descending colon which was able to be removed endoscopically. Also noted was a malignant appearing mass involving two thirds of the circumference at the first rectal fold. 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 The rectal biopsy showed tubulovillous adenoma with focal high-grade dysplasia. As it was clearly a malignant appearing lesion, he then underwent sigmoidoscopy with a repeat biopsy on 05/15/2019. Pathology at that time was consistent with well to moderately differentiated adenocarcinoma. CT abdomen pelvis showed circumferential perirectal soft tissue thickening consistent with rectal neoplasm. Also noted was left perirectal lymphadenopathy and aortocaval lymphadenopathy consistent with metastatic disease with the largest aortocaval node measuring 2.0 cm and the left perirectal node measuring 2.2 cm. He was referred to Dr. Otto in [place] for further management, and he then undergo neoadjuvant chemoradiation utilizing capecitabine for chemosensitization. He apparently was lost to follow-up there after completing the radiation. He was admitted to [facility] on 10/29/2019 after presenting to the emergency room with abdominal pain and swelling. His CT abdomen/pelvis showed evidence of abundant ascites and omental carcinomatosis. There was abnormal wall thickening and enhancement of the loops of small bowel, possibly reflecting enteritis, but concerning for neoplastic infiltration of the wall of the loops of bowel. An apple core type lesion with marked wall thickening and narrowing was noted in the distal sigmoid colon/rectum. A new ill-defined 2 cm nodule in the dome of the liver was new and suspicious for metastatic disease. On 10/30/2019 he underwent paracentesis with removal of 2000 mL of fluid. The cytology was negative. Dr Edwards had seen him initially on 11/02/2019. At that point he was still in pretty good performance status. Biopsy was recommended to confirm the histology of his disease, particularly with the pattern of metastatic involvement and the fact that his CEA level was normal. As the liver lesion was not accessible for needle biopsy, he underwent CT directed needle biopsy of a peritoneal mass on 11/21/2019. Pathology has just become available, and it does show metastatic adenocarcinoma, CDX 2 positive, consistent with colonic primary. In the meantime, a next generation sequencing study had been requested on his primary tumor. It showed the tumor to be MSI stable and KRAS wild type. His other medical illnesses include hypertension and GERD. He has a remote history of smoking a pack of cigarettes daily for about 10 years. He had quit smoking cigarettes sometime in his early 20s, but he has continued smoking a cigar about 3 times a week. INTERIM HISTORY: On 11/29/2019 he began cycle 1 of palliative chemotherapy with modified FOLFOX in combination with panitumumab. At that point he had very poor oral intake and very marginal performance status. He required IV fluid support, but he was able to tolerate the treatment without significant acute toxicity. By day 5 he was neutropenic, but he recovered uneventfully with Neupogen. He began to show gradual improvement in his symptoms. He was then able to continue treatment at 2-week intervals with Neulasta administered prophylactically. He began his 6th cycle of treatment on 02/06/2020. At that point he was given a 1 level reduction in the oxaliplatin dosage and a 20% reduction in the 5-FU dosage due to thrombocytopenia. The panitumumab was put on hold due to worsening skin eruption. He continued with his cycle 7 treatment on 02/20/2020. He tolerated it well. With cycle 8, on 03/05/2020, I did restart the panitumumab at a reduced dosage of 4 mg/kg. Restaging CT of the abdomen/pelvis on 03/14/2020 showed evidence of interval response to therapy with resolution of previously described ascites and omental carcinomatosis. Also noted was resolution of the metastatic lesion in the dome of the liver. There was residual circumferential thickening involving the distal sigmoid colon and rectum. There was no evidence of disease progression. He continued with his 12th cycle of treatment on 04/30/2020. Beginning on 05/13/2020 I opted to drop the chemotherapy and continue treatment with panitumumab monotherapy. Restaging CT scans on 06/20/2020 showed residual thickening involving the distal sigmoid colon and rectum, stable compared to the March 2020 CT and the October 2019 PET/CT. A 2.5 cm hepatic cyst along the undersurface of the right hepatic lobe appeared stable. There was mild diffuse fatty infiltration of the liver. There was no evidence of metastatic disease in the chest, abdomen, or pelvis. Restaging CT scans on 11/21/2020 showed no evidence for metastatic disease in the chest, abdomen, or pelvis. There was stable mild residual thickening involving the distal sigmoid colon and rectum. With those findings, he continued treatment with panitumumab at 2-week intervals. Mr. Fritz is here today for follow-up. He is due for cycle 22 vectibix. He states overall he is doing fairly well. He states that his energy is good and his appetite is good but he feels the rash on his neck and chest may be worse. He states his been itching and measurable . The rash on his face has essentially resolved however. It is noted that he does have fissures on his right thumb and also noted to be somewhat on the left thumb. He has multiple fingers with skin peeling. I did not assess his feet but he states that they are not peeling at all and have not been a problem. He denies any hand-foot syndrome such as tenderness or erythema. He denies any nausea or vomiting. He denies any fever or chills. He denies any mouth sores, sore throat or difficulty swallowing. He states his mouth is not bothering him and has no symptoms of mucositis. He states his bowels and bladder are normal for him. He denies any neuropathy symptoms. His ECOG is 1. Past Medical History: Gastroesophageal reflux disease Hypertension Rectal cancer Past Surgical History: Liver biopsy Tonsillectomy Flu vaccine in 2020 - left deltoid Left side porthacatheter placement dr. altamirano in 2019 Sigmoidoscopy with biopsy of rectal mass in 2019 Colonoscopy in 2019 Excision of basal cell skin cancer in 2019 Allergies: No Known Allergies. Medications: PriLOSEC OTC 1 Tablet (of 20 mg) Tablet, enteric coated Oral daily Family History: Mr. Fritz's mother is alive. Mr. Fritz's father at age 92: heart disease, and type II diabetes. Mr. Fritz has 1 brother who is alive. He has 1 sister who is alive. Mother still living at age 89. Father with heart disease at age 92. He also had diabetes. A maternal aunt had breast cancer. His maternal grandfather had lung cancer. 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 Mr. Fritz quit smoking 47 years ago but had smoked 1.0 pack/day for 12 years. He drinks occasionally. He consumes 2 drinks/day 3 days/week. He has indicated exposure to the following products: cigars. Mr. Fritz reports the following support systems: lives with spouse, significant other, family, or friends and adequate transportation available for expected visits. His diet consists of regular meals. He indicates his activity level as: light exercise. 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 He has a history of smoking 1 pack of cigarettes daily for 10 years, but he had quit by sometime in his early 20s. He smokes a cigar about 3 times a week. Alcohol use averages 2 beers 3 days a week. Review Of Symptoms: see above Vital Signs: Performed on Mar 03, 2021 10:26 Height - 70.00 in Weight - 199.8 lbs (HIGH) BSA - 2.09 sq.m BMI - 28.67 Temperature - 97.9 F (LOW) Pulse - 70 /min Respiration - 18 /min BP - 171/97 mm(hg) (HIGH) O2 Sat - 95 % (LOW) Pain - 0 Fatigue - 0,0 - Fully active, able to carry on all predisease activities without restrictions. (ECOG) Physical Examination: Constitutional Alert, oriented, no acute distress. Skin pink, warm and dry. Head Normocephalic; atraumatic. Eyes Conjunctivae and sclerae are clear and without icterus. Pupils are reactive and equal. Neck Supple without masses or thyromegaly. No jugular venous distension. Respiratory Lungs are clear to auscultation without rhonchi or wheezing. Cardiovascular Regular rate and rhythm of heart without murmurs,clicks, gallops or rubs. Abdomen Non-tender, non-distended, no masses or ascites. No guarding or rebound tenderness. No pulsatile masses. Back/Spine Non-tender to palpation. Extremities No visible deformities, no cyanosis, clubbing or edema. Musculoskeletal No tenderness or swelling, normal range of motion without obvious weakness. Integumentary He has skin fissures on his thumbs bilaterally and around multiple nailbeds. He has skin peeling on his fingers on both hands???minimum of grade 2. There is no drainage or redness at this time. Neurologic No sensory or motor deficits, normal cerebellar function, normal gait. Psychiatric Alert and oriented times three. Coherent speech. Verbalizes understanding of our discussions today. Laboratory:Test performed on Mar 03, 2021 08:05 Sodium 137 mmol/L Potassium 4.0 mmol/L Chloride 103 mmol/L CO2 25 mmol/L Anion Gap 13.0 BUN 10 mg/dL Creatinine 0.6 mg/dL Cr Clearance (Est) 148.2400 mL/min eGFR 134.4 mL/min Glucose 96 mg/dL Osmolality - Calculated 283 mOsm/kg Calcium 7.3 mg/dL Protein, Total 6.5 g/dL Albumin 4.4 g/dL Globulin 2.1 g/dL Bilirubin, Total 1.2 mg/dL ALT (SGPT) 21 U/L AST (SGOT) 22 U/L Alkaline Phosphatase 151 IU/L WBC 6.0 10 3/uL RBC 5.00 10 6/uL HGB 15.4 g/dL HCT 46.0 % MCV 92.0 fL MCH 30.8 pg MCHC 33.5 g/dL RDW 13.2 % Platelet Count 178 10 3/cmm MPV 10.4 fL Neutrophils 4.24 10 3/uL Lymphocytes 1.0 10 3/uL Monocytes 0.5 10 3/uL Eosinophils 0.1 10 3/uL Basophils 0.0 10 3/uL Neutrophil % 70.9 % Lymphocyte % 16.9 % Monocyte % 8.5 % Eosinophil % 2.2 % Basophils % 0.7 % NRBC % 0 % Test performed on Dec 08, 2020 11:00 CEA 1.9 ng/mL Impression: 1. Well to moderately differentiated adenocarcinoma of the rectum. He underwent chemoradiation utilizing capecitabine for chemosensitization following initial diagnosis of the rectal cancer in May 2019. 2. He had subsequent disease progression to stage IVC (T3, N2, M1c) with CT evidence of metastatic involvement in the peritoneum and liver. He had associated ascites. CT-directed needle biopsy of a right peritoneal mass on 11/21/2019 confirmed adenocarcinoma consistent with colorectal primary. The tumor was confirmed to be MSI stable and KRAS wild-type. 3. Hypertension. 4. GERD. Plan: PROBLEMS ADDRESSED TODAY 1. Well to moderately differentiated adenocarcinoma of the rectum. He had undergone chemoradiation utilizing capecitabine for chemosensitization following initial diagnosis of the rectal cancer in May 2019. He had subsequent disease progression to stage IVC (T3, N2, M1c) with CT evidence of metastatic involvement in the peritoneum and liver. CT-directed needle biopsy of a right peritoneal mass on 11/21/2019 confirmed adenocarcinoma consistent with colorectal primary. The tumor was confirmed to be MSI stable and KRAS wild-type. In November 2019 began palliative chemotherapy with modified FOLFOX in combination with panitumumab. During treatment he required dose reductions in the chemotherapy due to neuropathy and thrombocytopenia, and he required treatment interruption and subsequent dose reduction in the panitumumab due to severe skin eruption. However, he had a very good clinical response to the treatment. As of April 2020, following completion of 12 cycles of chemotherapy, his treatment was transitioned to panitumumab monotherapy at a dosage of 4 mg/kg by IV infusion every 2 weeks. During follow-up he has continued to tolerate the panitumumab monotherapy very well. He has had very good response clinically and by follow-up CT scan, thus far with no evidence of disease progression. He will continue panitumumab 4 mg/kg by IV infusion every 2 weeks. A. We will delay his planned dose of Panitumumab today due to worsening skin rash and fissures in his thumbs and skin peeling of his fingers. B. Today's labs reviewed in detail discussed with Mr. Fritz and a copy was given to him. WBC 6.0, hemoglobin 15.4, platelets 178,000 ANC is 4240. Creatinine 0.6 random glucose 96 potassium 4.0 LFTs are normal. C. Mr. Fritz will plan to return in 2 weeks for reassessment and consideration of resuming his vectibix at that time. I have asked for CBC CMP and CEA at that time as well. D. He has been advised to use bag balm/other cream or thick emollient lotion and may even use vitamin E oil to his hands at least twice daily. E. He may take [id number] antihistamine such as Lisa, Claritin or Zyrtec as needed for itching from the Vectibix rash. F. Mr. Fritz was instructed to contact us in the interim should questions or problems arise. Signed By: Jose R Yeung-, AOCNP Tiago Edwards MD <<Signature on File>>
== END 2021-03-13 23:59 | disposition home or self-care (01) ==
LOC: ONCMED 05:34
PROVIDERS: PCP Family Medicine; Visit Provider Nurse Practitioner
DX: Z51.11 Encounter for antineoplastic chemotherapy (principal); C20 Malignant neoplasm of rectum; C78.6 Secondary malignant neoplasm of retroperitoneum and peritoneum; D70.1 Agranulocytosis secondary to cancer chemotherapy; T45.1X5A Adverse effect of antineoplastic and immunosuppressive drugs, initial encounter; D69.59 Other secondary thrombocytopenia; K21.9 Gastro-esophageal reflux disease without esophagitis; I10 Essential (primary) hypertension; Z79.899 Other long term (current) drug therapy
CPT/HCPCS: 36591; 80053; 85025; 96375; 96413; 99214; J3490; J7050; J9303

== ENCOUNTER 2021-03-31 05:58 | Outpatient (RCR) | payer MEDICARE, OTHER, SELFPAY ==
[2021-03-31 08:42] LABS: Basophils % 0.5 %; Eosinophils # 0.1 10^3/uL (0.0-0.8); Eosinophils % 2.2 %; Hematocrit 46.2 % (42.0-52.0); Hemoglobin 15.6 g/dL (11.7-16.6); Lymphocytes % 17.1 %; Mean Corpuscular HGB Conc 33.8 g/dL (30.0-36.0); Mean Corpuscular Hemoglobin 31.1 pg (28.0-34.0); Mean Corpuscular Volume 92.2 fL (80-94); Monocytes # 0.5 10^3/uL (0.2-0.9); Monocytes % 8.3 %; Neutrophils # 3.97 10^3/uL (1.8-7.7); Neutrophils % 71.5 %; Nucleated Red Blood Cells % 0 %; Platelet Count 164 10^3/cmm (130-400); Red Blood Count 5.01 10^6/uL (4.1-5.3); Red Cell Distribution Width 13.1 % (12.1-15.1); White Blood Count 5.6 10^3/uL (4.0-10.0)
[2021-03-31 09:00] LABS: Alanine Aminotransferase 19 U/L (0-41); Albumin Level 4.1 g/dL (3.5-5.2); Alkaline Phosphatase 141 IU/L (40-130); Anion Gap 13.5 (5-19); Aspartate Amino Transferase 19 U/L (0-40); Blood Urea Nitrogen 13 mg/dL (8-23); Calcium 8.1 mg/dL (8.5-10.5); Carbon Dioxide 25 mmol/L (22-29); Chloride 104 mmol/L (98-107); Globulin 2.3 g/dL (1.3-4.6); Glomerular Filtration Rate 112.5 mL/min (90-130); Glucose 112 mg/dL (65-115); Osmolality Calculated 287 mOsm/kg (285-295); Potassium 4.5 mmol/L (3.5-5.1); Sodium 138 mmol/L (136-145); Total Bilirubin 1.2 mg/dL (0.15-1.2); Total Protein 6.4 g/dL (6.6-8.7)
[2021-03-31] MEDS: sodium chloride 0.9% 250 ML IV (10:48)
[2021-03-31] MEDS: acetaminophen 325 mg Tablet 650 MG PO (10:48)
[2021-03-31] MEDS: famotidine 20 mg/2 mL INJ IVP (10:48)
--- NOTE | 2021-04-08 15:28 | ONC FU_ITS ---
[facility] Patient Note Patient: Mick Fritz Unit #: [id number]: [id number] Dictated By: Jose R YeungDate of Visit: March 31, 2021 Onc MED Follow-Up/Prog Note Chief Complaint: Rectal cancer. 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 In April 2019 he had been referred to Dr. Altamirano for excision of a skin lesion on his chest. He also was in need of screening colonoscopy. The skin lesion turned out to be a basal cell carcinoma. The colonoscopy showed a pedunculated polyp in the descending colon which was able to be removed endoscopically. Also noted was a malignant appearing mass involving two thirds of the circumference at the first rectal fold. 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 The rectal biopsy showed tubulovillous adenoma with focal high-grade dysplasia. As it was clearly a malignant appearing lesion, he then underwent sigmoidoscopy with a repeat biopsy on 05/15/2019. Pathology at that time was consistent with well to moderately differentiated adenocarcinoma. CT abdomen pelvis showed circumferential perirectal soft tissue thickening consistent with rectal neoplasm. Also noted was left perirectal lymphadenopathy and aortocaval lymphadenopathy consistent with metastatic disease with the largest aortocaval node measuring 2.0 cm and the left perirectal node measuring 2.2 cm. He was referred to Dr. Otto in [place] for further management, and he then undergo neoadjuvant chemoradiation utilizing capecitabine for chemosensitization. He apparently was lost to follow-up there after completing the radiation. He was admitted to [facility] on 10/29/2019 after presenting to the emergency room with abdominal pain and swelling. His CT abdomen/pelvis showed evidence of abundant ascites and omental carcinomatosis. There was abnormal wall thickening and enhancement of the loops of small bowel, possibly reflecting enteritis, but concerning for neoplastic infiltration of the wall of the loops of bowel. An apple core type lesion with marked wall thickening and narrowing was noted in the distal sigmoid colon/rectum. A new ill-defined 2 cm nodule in the dome of the liver was new and suspicious for metastatic disease. On 10/30/2019 he underwent paracentesis with removal of 2000 mL of fluid. The cytology was negative. Dr Edwards had seen him initially on 11/02/2019. At that point he was still in pretty good performance status. Biopsy was recommended to confirm the histology of his disease, particularly with the pattern of metastatic involvement and the fact that his CEA level was normal. As the liver lesion was not accessible for needle biopsy, he underwent CT directed needle biopsy of a peritoneal mass on 11/21/2019. Pathology has just become available, and it does show metastatic adenocarcinoma, CDX 2 positive, consistent with colonic primary. In the meantime, a next generation sequencing study had been requested on his primary tumor. It showed the tumor to be MSI stable and KRAS wild type. His other medical illnesses include hypertension and GERD. He has a remote history of smoking a pack of cigarettes daily for about 10 years. He had quit smoking cigarettes sometime in his early 20s, but he has continued smoking a cigar about 3 times a week. INTERIM HISTORY: On 11/29/2019 he began cycle 1 of palliative chemotherapy with modified FOLFOX in combination with panitumumab. At that point he had very poor oral intake and very marginal performance status. He required IV fluid support, but he was able to tolerate the treatment without significant acute toxicity. By day 5 he was neutropenic, but he recovered uneventfully with Neupogen. He began to show gradual improvement in his symptoms. He was then able to continue treatment at 2-week intervals with Neulasta administered prophylactically. He began his 6th cycle of treatment on 02/06/2020. At that point he was given a 1 level reduction in the oxaliplatin dosage and a 20% reduction in the 5-FU dosage due to thrombocytopenia. The panitumumab was put on hold due to worsening skin eruption. He continued with his cycle 7 treatment on 02/20/2020. He tolerated it well. With cycle 8, on 03/05/2020, I did restart the panitumumab at a reduced dosage of 4 mg/kg. Restaging CT of the abdomen/pelvis on 03/14/2020 showed evidence of interval response to therapy with resolution of previously described ascites and omental carcinomatosis. Also noted was resolution of the metastatic lesion in the dome of the liver. There was residual circumferential thickening involving the distal sigmoid colon and rectum. There was no evidence of disease progression. He continued with his 12th cycle of treatment on 04/30/2020. Beginning on 05/13/2020 I opted to drop the chemotherapy and continue treatment with panitumumab monotherapy. Restaging CT scans on 06/20/2020 showed residual thickening involving the distal sigmoid colon and rectum, stable compared to the March 2020 CT and the October 2019 PET/CT. A 2.5 cm hepatic cyst along the undersurface of the right hepatic lobe appeared stable. There was mild diffuse fatty infiltration of the liver. There was no evidence of metastatic disease in the chest, abdomen, or pelvis. Restaging CT scans on 11/21/2020 showed no evidence for metastatic disease in the chest, abdomen, or pelvis. There was stable mild residual thickening involving the distal sigmoid colon and rectum. With those findings, he continued treatment with panitumumab at 2-week intervals. Mr. Fritz is here today for follow-up. He is due for cycle 22 Vectibix. His treatment has been on hold as he presented for treatment on March 03, 2021 with significant skin changes in his hands including fissures in his thumbs. He had multiple fingers that were peeling layers of skin. They were not red or tender at the time. His treatment was placed on hold and he is here today for further assessment. He states overall he is feeling good. He feels his hands are healed and he is ready to pursue treatment once again. He states has been very active. Has been out fishing. He has had slight rash on his face due to sun exposure but nothing that has bothered him or been as significant as his rash has been in the past. He denies any new concerns. He denies any nausea or vomiting. He denies any fever or chills. He denies any mouth sores, sore throat or difficulty swallowing. He states his mouth is not bothering him and has no symptoms of mucositis. He states his bowels and bladder are normal for him. He denies any neuropathy symptoms. His ECOG is 0. Past Medical History: Gastroesophageal reflux disease Hypertension Rectal cancer Past Surgical History: Liver biopsy Tonsillectomy Flu vaccine in 2019 - left deltoid Left side porthacatheter placement dr. altamirano in 2019 Sigmoidoscopy with biopsy of rectal mass in 2019 Colonoscopy in 2019 Excision of basal cell skin cancer in 2019 Allergies: No Known Allergies. Medications: PriLOSEC OTC 1 Tablet (of 20 mg) Tablet, enteric coated Oral daily Family History: Mr. Fritz's mother is alive. Mr. Fritz's father at age 92: heart disease, and type II diabetes. Mr. Fritz has 1 brother who is alive. He has 1 sister who is alive. Mother still living at age 89. Father with heart disease at age 92. He also had diabetes. A maternal aunt had breast cancer. His maternal grandfather had lung cancer. Social History: Mr. 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 Mr. Fritz quit smoking 47 years ago but had smoked 1.0 pack/day for 12 years. He drinks occasionally. He consumes 2 drinks/day 3 days/week. He has indicated exposure to the following products: cigars. Mr. Fritz reports the following support systems: lives with spouse, significant other, family, or friends and adequate transportation available for expected visits. His diet consists of regular meals. He indicates his activity level as: light exercise. 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 He has a history of smoking 1 pack of cigarettes daily for 10 years, but he had quit by sometime in his early 20s. He smokes a cigar about 3 times a week. Alcohol use averages 2 beers 3 days a week. Review Of Symptoms: <See Above> Vital Signs: Performed on March 31, 2021 10:14 Height - 70.00 in Weight - 195.6 lbs (LOW) BSA - 2.07 sq.m BMI - 28.07 Temperature - 97.5 F (LOW) Pulse - 62 /min Respiration - 19 /min BP - 153/91 mm(hg) (HIGH) O2 Sat - 99 % Pain - 0,0 - Fully active, able to carry on all predisease activities without restrictions. (ECOG) Physical Examination: Constitutional Alert, oriented, no acute distress. Skin pink, warm and dry. Head Normocephalic; atraumatic. Eyes Conjunctivae and sclerae are clear and without icterus. Pupils are reactive and equal. ENMT No oral exudates, ulcers, masses, thrush or mucositis. Oropharynx clear. Tongue normal. Neck Supple without masses or thyromegaly. No jugular venous distension. Hematologic/Lymphatic No petechiae or purpura. No tender or palpable lymph nodes in the cervical or supraclavicular areas. Respiratory Lungs are clear to auscultation without rhonchi or wheezing. Cardiovascular Regular rate and rhythm of heart without murmurs,clicks, gallops or rubs. Chest scattered red maculopapular rash on anterior chest. Mild without pustules at present. Abdomen Non-tender, non-distended, no masses or ascites. No guarding or rebound tenderness. No pulsatile masses. Back/Spine Non-tender to palpation. Extremities No visible deformities, no cyanosis, clubbing or edema. Musculoskeletal No tenderness or swelling, normal range of motion without obvious weakness. Integumentary He has skin fissures on his thumbs bilaterally and around multiple nailbeds have healed. There is no peeling or skin peeling. Neurologic No sensory or motor deficits, normal cerebellar function, normal gait. Psychiatric Alert and oriented times three. Coherent speech. Verbalizes understanding of our discussions today. Laboratory:Test performed on March 31, 2021 08:20 Sodium 138 mmol/L Potassium 4.5 mmol/L Chloride 104 mmol/L CO2 25 mmol/L Anion Gap 13.5 BUN 13 mg/dL Creatinine 0.7 mg/dL Cr Clearance (Est) 127.0600 mL/min eGFR 112.5 mL/min Glucose 112 mg/dL Osmolality - Calculated 287 mOsm/kg Calcium 8.1 mg/dL Protein, Total 6.4 g/dL Albumin 4.1 g/dL Globulin 2.3 g/dL Bilirubin, Total 1.2 mg/dL ALT (SGPT) 19 U/L AST (SGOT) 19 U/L Alkaline Phosphatase 141 IU/L WBC 5.6 10 3/uL RBC 5.01 10 6/uL HGB 15.6 g/dL HCT 46.2 % MCV 92.2 fL MCH 31.1 pg MCHC 33.8 g/dL RDW 13.1 % Platelet Count 164 10 3/cmm MPV 11.0 fL Neutrophils 3.97 10 3/uL Lymphocytes 1.0 10 3/uL Monocytes 0.5 10 3/uL Eosinophils 0.1 10 3/uL Basophils 0.0 10 3/uL Neutrophil % 71.5 % Lymphocyte % 17.1 % Monocyte % 8.3 % Eosinophil % 2.2 % Basophils % 0.5 % NRBC % 0 % Test performed on Dec 08, 2020 11:00 CEA 1.9 ng/mL Impression: 1. Well to moderately differentiated adenocarcinoma of the rectum. He underwent chemoradiation utilizing capecitabine for chemosensitization following initial diagnosis of the rectal cancer in May 2019. 2. He had subsequent disease progression to stage IVC (T3, N2, M1c) with CT evidence of metastatic involvement in the peritoneum and liver. He had associated ascites. CT-directed needle biopsy of a right peritoneal mass on 11/21/2019 confirmed adenocarcinoma consistent with colorectal primary. The tumor was confirmed to be MSI stable and KRAS wild-type. 3. Hypertension. 4. GERD. Plan/Problems Addressed at this Visit: PROBLEMS ADDRESSED TODAY 1. Well to moderately differentiated adenocarcinoma of the rectum. He had undergone chemoradiation utilizing capecitabine for chemosensitization following initial diagnosis of the rectal cancer in May 2019. He had subsequent disease progression to stage IVC (T3, N2, M1c) with CT evidence of metastatic involvement in the peritoneum and liver. CT-directed needle biopsy of a right peritoneal mass on 11/21/2019 confirmed adenocarcinoma consistent with colorectal primary. The tumor was confirmed to be MSI stable and KRAS wild-type. In November 2019 began palliative chemotherapy with modified FOLFOX in combination with panitumumab. During treatment he required dose reductions in the chemotherapy due to neuropathy and thrombocytopenia, and he required treatment interruption and subsequent dose reduction in the panitumumab due to severe skin eruption. However, he had a very good clinical response to the treatment. As of April 2020, following completion of 12 cycles of chemotherapy, his treatment was transitioned to panitumumab monotherapy at a dosage of 4 mg/kg by IV infusion every 2 weeks. During follow-up he has continued to tolerate the panitumumab monotherapy very well. He has had very good response clinically and by follow-up CT scan, thus far with no evidence of disease progression. He will continue panitumumab 4 mg/kg by IV infusion every 2 weeks. A. We will proceed with his planned dose of Panitumumab today. B. Today's labs reviewed in detail discussed with Mr. Fritz and a copy was given to him. WBC 5.6, hemoglobin 15.6, platelets 1 or 64,000, ANC is 3970. Creatinine 0.7 potassium 4.5 random glucose 112 LFTs are normal alk phos is 141 but improved from February 2021 at which time was 151. His weight is stable at 195.6. C. Mr. Fritz will plan to return in 2 weeks for reassessment and consideration of resuming his vectibix at that time. I have asked for CBC CMP and CEA at that time as well. D. He has been advised to use bag balm/other cream or thick emollient lotion and may even use vitamin E oil to his hands at least twice daily. E. He states he is planning on a trip to [place] sometime in the future and may need to work around treatments or delay them for this trip. F. Mr. Fritz was instructed to contact us in the interim should questions or problems arise. G. His last follow-up in was CT of the abdomen and pelvis with contrast from November 21, 2020. His last PET/CT was November 10, 2019 with [facility] radiology. Signed By: Jose R Yeung-, AOCNP Tiago Edwards MD <<Signature on File>>
== END 2021-04-13 23:59 | disposition home or self-care (01) ==
LOC: ONCMED 05:58
PROVIDERS: PCP Family Medicine; Visit Provider Nurse Practitioner
DX: Z51.12 Encounter for antineoplastic immunotherapy (principal); C20 Malignant neoplasm of rectum; C78.6 Secondary malignant neoplasm of retroperitoneum and peritoneum; D70.1 Agranulocytosis secondary to cancer chemotherapy; T45.1X5A Adverse effect of antineoplastic and immunosuppressive drugs, initial encounter; D69.6 Thrombocytopenia, unspecified; K21.9 Gastro-esophageal reflux disease without esophagitis; I10 Essential (primary) hypertension; Z79.899 Other long term (current) drug therapy
CPT/HCPCS: 80053; 85025; 96375; 96413; 99214; J3490; J7050; J9303

== ENCOUNTER 2021-05-12 05:47 | Outpatient (RCR) | payer MEDICARE, OTHER, SELFPAY ==
[2021-04-15 09:51] LABS: Basophils % 0.7 %; Eosinophils # 0.1 10^3/uL (0.0-0.8); Eosinophils % 1.8 %; Hemoglobin 16.1 g/dL (11.7-16.6); Lymphocytes # 1.1 10^3/uL (0.8-4.8); Lymphocytes % 17.4 %; Mean Corpuscular HGB Conc 34.3 g/dL (30.0-36.0); Mean Corpuscular Hemoglobin 31.6 pg (28.0-34.0); Mean Corpuscular Volume 92.3 fL (80-94); Mean Platelet Volume 10.6 fL (7.4-10.4); Monocytes # 0.5 10^3/uL (0.2-0.9); Monocytes % 7.7 %; Neutrophils # 4.37 10^3/uL (1.8-7.7); Neutrophils % 71.7 %; Nucleated Red Blood Cells % 0 %; Platelet Count 172 10^3/cmm (130-400); Red Blood Count 5.09 10^6/uL (4.1-5.3); White Blood Count 6.1 10^3/uL (4.0-10.0)
[2021-04-15 10:16] LABS: Carcinoembryonic Antigen 2.2 ng/mL (0.0-4.7); Thyroid Stimulating Hormone 1.97 uIU/mL (0.27-4.20)
[2021-04-15 10:27] LABS: Alanine Aminotransferase 24 U/L (0-41); Albumin Level 4.5 g/dL (3.5-5.2); Alkaline Phosphatase 151 IU/L (40-130); Anion Gap 14.4 (5-19); Aspartate Amino Transferase 20 U/L (0-40); Blood Urea Nitrogen 16 mg/dL (8-23); Calcium 8.4 mg/dL (8.5-10.5); Carbon Dioxide 23 mmol/L (22-29); Chloride 104 mmol/L (98-107); Globulin 2.1 g/dL (1.3-4.6); Glomerular Filtration Rate 112.5 mL/min (90-130); Glucose 78 mg/dL (65-115); Osmolality Calculated 284 mOsm/kg (285-295); Potassium 4.4 mmol/L (3.5-5.1); Sodium 137 mmol/L (136-145); Total Bilirubin 1.2 mg/dL (0.15-1.2); Total Protein 6.6 g/dL (6.6-8.7)
[2021-04-15] MEDS: sodium chloride 0.9% 250 ML IV (12:00)
[2021-04-15] MEDS: famotidine 20 mg/2 mL INJ IVP (12:00)
[2021-04-15] MEDS: acetaminophen 325 mg Tablet 650 MG PO (12:02)
--- NOTE | 2021-04-17 06:28 | ONC FU_ITS ---
Dr. Edwards Patient Follow-Up Note Patient: Mick Fritz Unit #: [id number]: [id number] Dicatated By: Tiago Edwards M.D.Date of Visit:Apr 15, 2021 Onc Med Follow-up/Prog Note Chief Complaint: Rectal cancer. 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 In April 2019 he had been referred to Dr. Altamirano for excision of a skin lesion on his chest. He also was in need of screening colonoscopy. The skin lesion turned out to be a basal cell carcinoma. The colonoscopy showed a pedunculated polyp in the descending colon which was able to be removed endoscopically. Also noted was a malignant appearing mass involving two thirds of the circumference at the first rectal fold. 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 The rectal biopsy showed tubulovillous adenoma with focal high-grade dysplasia. As it was clearly a malignant appearing lesion, he then underwent sigmoidoscopy with a repeat biopsy on 05/15/2019. Pathology at that time was consistent with well to moderately differentiated adenocarcinoma. CT abdomen pelvis showed circumferential perirectal soft tissue thickening consistent with rectal neoplasm. Also noted was left perirectal lymphadenopathy and aortocaval lymphadenopathy consistent with metastatic disease with the largest aortocaval node measuring 2.0 cm and the left perirectal node measuring 2.2 cm. He was referred to Dr. Otto in [place] for further management, and he then undergo neoadjuvant chemoradiation utilizing capecitabine for chemosensitization. He apparently was lost to follow-up there after completing the radiation. He was admitted to [facility] on 10/29/2019 after presenting to the emergency room with abdominal pain and swelling. His CT abdomen/pelvis showed evidence of abundant ascites and omental carcinomatosis. There was abnormal wall thickening and enhancement of the loops of small bowel, possibly reflecting enteritis, but concerning for neoplastic infiltration of the wall of the loops of bowel. An apple core type lesion with marked wall thickening and narrowing was noted in the distal sigmoid colon/rectum. A new ill-defined 2 cm nodule in the dome of the liver was new and suspicious for metastatic disease. On 10/30/2019 he underwent paracentesis with removal of 2000 mL of fluid. The cytology was negative. I had seen him initially on 11/02/2019. At that point he was still in pretty good performance status. Biopsy was recommended to confirm the histology of his disease, particularly with the pattern of metastatic involvement and the fact that his CEA level was normal. As the liver lesion was not accessible for needle biopsy, he underwent CT directed needle biopsy of a peritoneal mass on 11/21/2019. Pathology has just become available, and it does show metastatic adenocarcinoma, CDX 2 positive, consistent with colonic primary. In the meantime, a next generation sequencing study had been requested on his primary tumor. It showed the tumor to be MSI stable and KRAS wild type. His other medical illnesses include hypertension and GERD. He has a remote history of smoking a pack of cigarettes daily for about 10 years. He had quit smoking cigarettes sometime in his early 20s, but he has continued smoking a cigar about 3 times a week. INTERIM HISTORY: On 11/29/2019 he began cycle 1 of palliative chemotherapy with modified FOLFOX in combination with panitumumab. At that point he had very poor oral intake and very marginal performance status. He required IV fluid support, but he was able to tolerate the treatment without significant acute toxicity. By day 5 he was neutropenic, but he recovered uneventfully with Neupogen. He began to show gradual improvement in his symptoms. He was then able to continue treatment at 2-week intervals with Neulasta administered prophylactically. He began his 6th cycle of treatment on 02/06/2020. At that point he was given a 1 level reduction in the oxaliplatin dosage and a 20% reduction in the 5-FU dosage due to thrombocytopenia. The panitumumab was put on hold due to worsening skin eruption. He continued with his cycle 7 treatment on 02/20/2020. He tolerated it well. With cycle 8, on 03/05/2020, I did restart the panitumumab at a reduced dosage of 4 mg/kg. Restaging CT of the abdomen/pelvis on 03/14/2020 showed evidence of interval response to therapy with resolution of previously described ascites and omental carcinomatosis. Also noted was resolution of the metastatic lesion in the dome of the liver. There was residual circumferential thickening involving the distal sigmoid colon and rectum. There was no evidence of disease progression. He continued with his 12th cycle of treatment on 04/30/2020. Beginning on 05/13/2020 I opted to drop the chemotherapy and continue treatment with panitumumab monotherapy. Restaging CT scans on 06/20/2020 showed residual thickening involving the distal sigmoid colon and rectum, stable compared to the March 2020 CT and the October 2019 PET/CT. A 2.5 cm hepatic cyst along the undersurface of the right hepatic lobe appeared stable. There was mild diffuse fatty infiltration of the liver. There was no evidence of metastatic disease in the chest, abdomen, or pelvis. Restaging CT scans on 11/21/2020 showed no evidence for metastatic disease in the chest, abdomen, or pelvis. There was stable mild residual thickening involving the distal sigmoid colon and rectum. With those findings, he continued treatment with panitumumab at 2-week intervals. He is seen for a scheduled visit. He has been feeling pretty good generally, though lately he has been having a little bit more pain in the abdominal area, mainly in the left lower quadrant. He has been having to take his pain medication more frequently. He still has pretty good energy and activity tolerance. ECOG score 0. He has good appetite. He has no fever or night sweats. He has had no mouth sores. He does not complain of shortness of breath or cough. He occasionally has pain in his upper chest on the left side. He does not complain of nausea. Lately he has been having quite a bit of heartburn. It is managed adequately with Prilosec. Bowel function remains adequate. He typically has up to 5 small stools per day, but it is not diarrhea. Bladder function is fine. He does not complain of headache or dizziness. He still has some numbness in his right arm and hand. He has no other focal neurologic symptoms. Medications: PriLOSEC OTC 1 Tablet (of 20 mg) Tablet, enteric coated Oral daily Allergies: No Known Allergies. Vital Signs: Performed on Apr 15, 2021 11:29 Height - 70.00 in Weight - 195.4 lbs (LOW) BSA - 2.07 sq.m BMI - 28.04 Temperature - 98.0 F (LOW) Pulse - 67 /min Respiration - 18 /min BP - 148/86 mm(hg) (HIGH) O2 Sat - 98 % Pain - 0 Fatigue - 0 Physical Examination: Constitutional - He looks pretty good generally, Eyes - Sclerae nonicteric. Conjunctivae clear, ENMT - No lesions noted in the oral cavity, Hematologic/Lymphatic - No cervical, clavicular, or axillary adenopathy, Respiratory - Lungs are clear with good air movement bilaterally, Cardiovascular - Heart rhythm is regular. There is no murmur, gallop, or rub noted, Abdomen - Soft. Liver and spleen are not enlarged. There is no abdominal mass or ascites noted. There is no inguinal adenopathy, Extremities - No edema, Integumentary - There is only miminal residual skin eruption, mainly now in the neck area, Neurologic - No focal neurologic deficits noted. Lab/Imaging: Test performed on Apr 15, 2021 09:34 Sodium 137 mmol/L TSH 1.97 uIU/mL Potassium 4.4 mmol/L Chloride 104 mmol/L CO2 23 mmol/L Anion Gap 14.4 BUN 16 mg/dL Creatinine 0.7 mg/dL Cr Clearance (Est) 127.0600 mL/min eGFR 112.5 mL/min Glucose 78 mg/dL Osmolality - Calculated 284 mOsm/kg Calcium 8.4 mg/dL Protein, Total 6.6 g/dL Albumin 4.5 g/dL Globulin 2.1 g/dL Bilirubin, Total 1.2 mg/dL ALT (SGPT) 24 U/L AST (SGOT) 20 U/L Alkaline Phosphatase 151 IU/L WBC 6.1 10 3/uL RBC 5.09 10 6/uL HGB 16.1 g/dL HCT 47.0 % MCV 92.3 fL MCH 31.6 pg MCHC 34.3 g/dL RDW 13.0 % Platelet Count 172 10 3/cmm MPV 10.6 fL Neutrophils 4.37 10 3/uL Lymphocytes 1.1 10 3/uL Monocytes 0.5 10 3/uL Eosinophils 0.1 10 3/uL Basophils 0.0 10 3/uL Neutrophil % 71.7 % Lymphocyte % 17.4 % Monocyte % 7.7 % Eosinophil % 1.8 % Basophils % 0.7 % NRBC % 0 % CEA 2.2 ng/mL Problem List: 1. Well to moderately differentiated adenocarcinoma of the rectum. He underwent chemoradiation utilizing capecitabine for chemosensitization following initial diagnosis of the rectal cancer in May 2019. 2. He had subsequent disease progression to stage IVC (T3, N2, M1c) with CT evidence of metastatic involvement in the peritoneum and liver. He had associated ascites. CT-directed needle biopsy of a right peritoneal mass on 11/21/2019 confirmed adenocarcinoma consistent with colorectal primary. The tumor was confirmed to be MSI stable and KRAS wild-type. 3. Hypertension. 4. GERD. Problems Addressed with this Encounter and Plan: Patient with well to moderately differentiated adenocarcinoma of the rectum. He had undergone chemoradiation utilizing capecitabine for chemosensitization following initial diagnosis of the rectal cancer in May 2019. He had subsequent disease progression to stage IVC (T3, N2, M1c) with CT evidence of metastatic involvement in the peritoneum and liver. CT-directed needle biopsy of a right peritoneal mass on 11/21/2019 confirmed adenocarcinoma consistent with colorectal primary. The tumor was confirmed to be MSI stable and KRAS wild-type. In November 2019 began palliative chemotherapy with modified FOLFOX in combination with panitumumab. During treatment he required dose reductions in the chemotherapy due to neuropathy and thrombocytopenia, and he required treatment interruption and subsequent dose reduction in the panitumumab due to severe skin eruption. However, he had a very good clinical response to the treatment. As of April 2020, following completion of 12 cycles of chemotherapy, his treatment was transitioned to panitumumab monotherapy at a dosage of 4 mg/kg by IV infusion every 2 weeks. During follow-up he has continued to tolerate the panitumumab monotherapy very well, and he has had very good response clinically and by follow-up CT scan. Recently has been having more pain in the left lower quadrant area. He otherwise appears stable clinically. He will continue his panitumumab monotherapy at the same dosage and schedule, but he will now be scheduled for restaging CT scans of the chest, abdomen, and pelvis. He will tentatively be scheduled for a follow-up visit in 6 weeks. Signed By: Tiago Edwards M.D. <<Signature on File>>
--- NOTE | 2021-04-22 13:30 | CT_ITS ---
WS: [id number] CT CHEST, ABDOMEN, AND PELVIS TECHNIQUE: Contrast-enhanced CT of the chest, abdomen, and pelvis with coronal and sagittal reformatt ed images. CLINICAL INFORMATION: COLON CANCER COMPARISON: CT November 21, 2020, June 2020, March 2020. DLP: All CT scans at [facility] use at least one of these dose optimization techniques: automat ed exposure control; mA and/or kV adjustment per patient size (includes targeted exams where dose is matched to clinical indication); or iterative reconstruction. CT CHEST: Moderate chronic emphysematous changes. No acute pulmonary infiltrates. No focal consolidation pleura l fluid. Subsegmental atelectasis in the lingula and left lower lobe. No suspicious pulmonary parench ymal opacities. Stable nodules left thyroid. Normal caliber thoracic aorta. Proximal main pulmonary arteries are norm al. No mediastinal or hilar lymphadenopathy. No axillary lymphadenopathy. CT ABDOMEN AND PELVIS: Diffuse fatty infiltration of the liver. Portal vein and splenic vein are patent. Normal gallbladder. Stable right hepatic cyst measuring 2.5 CM. Normal GE junction. Normal spleen. Adrenal glands are no rmal. Normal renal parenchymal enhancement. No hydronephrosis. Small left renal cyst. Mild fatty atro phy of the pancreas. Normal caliber abdominal aorta. Mild aortic calcification. Mild circumferential thickening of the rectosigmoid is unchanged in appearance since November 21, 2019 Consistent with treated neoplasm. Sigmoid diverticulosis. No evidence of acute diverticulitis. Normal appendix. No periaortic or pelvic lymphadenopathy. No inguinal lymphadenopathy. Mild hypertrophic ch anges thoracic spine. Grade 1 anterolisthesis L4 on L5. Stable sclerotic lesion in left ilium. CT/CT chest abd pel w con* IMPRESSION: 1. Mild circumferential wall thickening involving the rectosigmoid consistent with treated neoplasm unchanged in appearance from previous. 2. No evidence of progressed or metastatic disease in the chest abdomen or pel vis. 3. No mediastinal or hilar lymphadenopathy. 4. No adenopathy in the abdomen or pelvis. 5. Stable right hepatic cyst. 6. No other significant changes from previous.
[2021-04-22] MEDS: iohexol 300 mg/mL 50 mL Btl PO (14:45)
[2021-04-22] MEDS: iohexol 300 mg/mL 100 mL Btl IV (15:37)
[2021-04-28] MEDS: famotidine 20 mg/2 mL INJ IVP (08:22)
[2021-04-28] MEDS: acetaminophen 325 mg Tablet 650 MG PO (08:22)
[2021-04-28] MEDS: sodium chloride 0.9% 250 ML 75 ML IV (08:22)
[2021-05-12] MEDS: sodium chloride 0.9% 250 ML 75 ML IV (08:18)
[2021-05-12] MEDS: acetaminophen 325 mg Tablet 650 MG PO (08:18)
[2021-05-12] MEDS: famotidine 20 mg/2 mL INJ IVP (08:18)
== END 2021-05-13 23:59 | disposition home or self-care (01) ==
LOC: ONCMED 05:47
PROVIDERS: Internal Medicine Medical Oncology; PCP Family Medicine; Visit Provider Nurse Practitioner
DX: Z51.12 Encounter for antineoplastic immunotherapy (principal); C20 Malignant neoplasm of rectum; C78.7 Secondary malignant neoplasm of liver and intrahepatic bile duct; C78.6 Secondary malignant neoplasm of retroperitoneum and peritoneum; R18.0 Malignant ascites; Z85.828 Personal history of other malignant neoplasm of skin; Z92.3 Personal history of irradiation; I10 Essential (primary) hypertension; K21.9 Gastro-esophageal reflux disease without esophagitis; F17.210 Nicotine dependence, cigarettes, uncomplicated; D69.59 Other secondary thrombocytopenia; T45.1X5A Adverse effect of antineoplastic and immunosuppressive drugs, initial encounter; G62.0 Drug-induced polyneuropathy
CPT/HCPCS: 71260; 74177; 80053; 82378; 84443; 85025; 96375; 96413; 99214; J3490; J7050; J9303; Q9967

== ENCOUNTER 2021-06-09 05:42 | Outpatient (RCR) | payer MEDICARE, OTHER, SELFPAY ==
[2021-05-26 09:35] LABS: Basophils % 0.6 %; Eosinophils # 0.2 10^3/uL (0.0-0.8); Eosinophils % 2.6 %; Hemoglobin 16.4 g/dL (11.7-16.6); Lymphocytes % 15.1 %; Mean Corpuscular HGB Conc 33.5 g/dL (30.0-36.0); Mean Corpuscular Hemoglobin 30.8 pg (28.0-34.0); Mean Corpuscular Volume 92.1 fL (80-94); Mean Platelet Volume 10.2 fL (7.4-10.4); Monocytes # 0.5 10^3/uL (0.2-0.9); Neutrophils # 4.78 10^3/uL (1.8-7.7); Neutrophils % 73.1 %; Nucleated Red Blood Cells % 0 %; Platelet Count 167 10^3/cmm (130-400); Red Blood Count 5.32 10^6/uL (4.1-5.3); Red Cell Distribution Width 12.8 % (12.1-15.1); White Blood Count 6.5 10^3/uL (4.0-10.0)
[2021-05-26 10:03] LABS: Carcinoembryonic Antigen 2.2 ng/mL (0.0-4.7)
[2021-05-26 10:14] LABS: Alanine Aminotransferase 19 U/L (0-41); Albumin Level 4.1 g/dL (3.5-5.2); Alkaline Phosphatase 143 IU/L (40-130); Anion Gap 15.3 (5-19); Aspartate Amino Transferase 19 U/L (0-40); Blood Urea Nitrogen 13 mg/dL (8-23); Carbon Dioxide 23 mmol/L (22-29); Chloride 105 mmol/L (98-107); Globulin 2.4 g/dL (1.3-4.6); Glomerular Filtration Rate 96.4 mL/min (90-130); Glucose 94 mg/dL (65-115); Osmolality Calculated 288 mOsm/kg (285-295); Potassium 4.3 mmol/L (3.5-5.1); Sodium 139 mmol/L (136-145); Total Protein 6.5 g/dL (6.6-8.7)
[2021-05-26] MEDS: acetaminophen 325 mg Tablet 650 MG PO (11:30)
[2021-05-26] MEDS: sodium chloride 0.9% 250 ML 75 ML IV (11:30)
[2021-05-26] MEDS: famotidine 20 mg/2 mL INJ IVP (11:30)
--- NOTE | 2021-05-30 10:55 | ONC FU_ITS ---
Dr. Edwards Patient Follow-Up Note Patient: Mick Fritz Unit #: [id number]: [id number] Dicatated By: Tiago Edwards M.D.Date of Visit:May 26, 2021 Onc Med Follow-up/Prog Note Chief Complaint: Rectal cancer. 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 In April 2019 he had been referred to Dr. Altamirano for excision of a skin lesion on his chest. He also was in need of screening colonoscopy. The skin lesion turned out to be a basal cell carcinoma. The colonoscopy showed a pedunculated polyp in the descending colon which was able to be removed endoscopically. Also noted was a malignant appearing mass involving two thirds of the circumference at the first rectal fold. 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 The rectal biopsy showed tubulovillous adenoma with focal high-grade dysplasia. As it was clearly a malignant appearing lesion, he then underwent sigmoidoscopy with a repeat biopsy on 05/15/2019. Pathology at that time was consistent with well to moderately differentiated adenocarcinoma. CT abdomen pelvis showed circumferential perirectal soft tissue thickening consistent with rectal neoplasm. Also noted was left perirectal lymphadenopathy and aortocaval lymphadenopathy consistent with metastatic disease with the largest aortocaval node measuring 2.0 cm and the left perirectal node measuring 2.2 cm. He was referred to Dr. Otto in [place] for further management, and he then undergo neoadjuvant chemoradiation utilizing capecitabine for chemosensitization. He apparently was lost to follow-up there after completing the radiation. He was admitted to [facility] on 10/29/2019 after presenting to the emergency room with abdominal pain and swelling. His CT abdomen/pelvis showed evidence of abundant ascites and omental carcinomatosis. There was abnormal wall thickening and enhancement of the loops of small bowel, possibly reflecting enteritis, but concerning for neoplastic infiltration of the wall of the loops of bowel. An apple core type lesion with marked wall thickening and narrowing was noted in the distal sigmoid colon/rectum. A new ill-defined 2 cm nodule in the dome of the liver was new and suspicious for metastatic disease. On 10/30/2019 he underwent paracentesis with removal of 2000 mL of fluid. The cytology was negative. I had seen him initially on 11/02/2019. At that point he was still in pretty good performance status. Biopsy was recommended to confirm the histology of his disease, particularly with the pattern of metastatic involvement and the fact that his CEA level was normal. As the liver lesion was not accessible for needle biopsy, he underwent CT directed needle biopsy of a peritoneal mass on 11/21/2019. Pathology has just become available, and it does show metastatic adenocarcinoma, CDX 2 positive, consistent with colonic primary. In the meantime, a next generation sequencing study had been requested on his primary tumor. It showed the tumor to be MSI stable and KRAS wild type. His other medical illnesses include hypertension and GERD. He has a remote history of smoking a pack of cigarettes daily for about 10 years. He had quit smoking cigarettes sometime in his early 20s, but he has continued smoking a cigar about 3 times a week. INTERIM HISTORY: On 11/29/2019 he began cycle 1 of palliative chemotherapy with modified FOLFOX in combination with panitumumab. At that point he had very poor oral intake and very marginal performance status. He required IV fluid support, but he was able to tolerate the treatment without significant acute toxicity. By day 5 he was neutropenic, but he recovered uneventfully with Neupogen. He began to show gradual improvement in his symptoms. He was then able to continue treatment at 2-week intervals with Neulasta administered prophylactically. He began his 6th cycle of treatment on 02/06/2020. At that point he was given a 1 level reduction in the oxaliplatin dosage and a 20% reduction in the 5-FU dosage due to thrombocytopenia. The panitumumab was put on hold due to worsening skin eruption. He continued with his cycle 7 treatment on 02/20/2020. He tolerated it well. With cycle 8, on 03/05/2020, I did restart the panitumumab at a reduced dosage of 4 mg/kg. Restaging CT of the abdomen/pelvis on 03/14/2020 showed evidence of interval response to therapy with resolution of previously described ascites and omental carcinomatosis. Also noted was resolution of the metastatic lesion in the dome of the liver. There was residual circumferential thickening involving the distal sigmoid colon and rectum. There was no evidence of disease progression. He continued with his 12th cycle of treatment on 04/30/2020. Beginning on 05/13/2020 I opted to drop the chemotherapy and continue treatment with panitumumab monotherapy. Restaging CT scans on 06/20/2020 showed residual thickening involving the distal sigmoid colon and rectum, stable compared to the March 2020 CT and the October 2019 PET/CT. A 2.5 cm hepatic cyst along the undersurface of the right hepatic lobe appeared stable. There was mild diffuse fatty infiltration of the liver. There was no evidence of metastatic disease in the chest, abdomen, or pelvis. Restaging CT scans on 11/21/2020 showed no evidence for metastatic disease in the chest, abdomen, or pelvis. There was stable mild residual thickening involving the distal sigmoid colon and rectum. With those findings, he continued treatment with panitumumab at 2-week intervals. At his follow-up visit on 04/15/2021 he was having some new abdominal pain. He continued his treatment, but he then had restaging CT scans of the chest, abdomen, and pelvis on 04/23/2021. There was mild circumferential wall thickening involving the rectosigmoid, consistent with treated neoplasm and with unchanged appearance from previous studies. There was no evidence of disease progression. He is seen for a scheduled visit. He has been feeling pretty good generally. He does report having some decrease in energy and ambition, but he is still doing light work. ECOG score is 1. He has good appetite. He has no fever or night sweats. He does complain that his skin is very dry and itchy. He has had no mouth sores. He has no shortness of breath, cough, or chest pain. He has heartburn occasionally. He has noticed a slight decrease in the caliber of his stools and he also has has occasional spotting of red blood in the stool. He has no complaints. He has no significant joint or bone pain. He does not complain of headache. He does have a little bit of dizziness. He has numbness in his right hand. Medications: PriLOSEC OTC 1 Tablet (of 20 mg) Tablet, enteric coated Oral daily Allergies: No Known Allergies. Vital Signs: Performed on May 26, 2021 11:34 Height - 70.00 in Weight - 194.2 lbs (LOW) BSA - 2.06 sq.m BMI - 27.86 Temperature - 97.2 F (LOW) Pulse - 74 /min Respiration - 18 /min BP - 128/84 mm(hg) O2 Sat - 98 % Pain - 0 Fatigue - 8 Physical Examination: Constitutional - He looks pretty good generally, Eyes - Sclerae nonicteric. Conjunctivae clear, ENMT - No lesions noted in the oral cavity, Hematologic/Lymphatic - No cervical, clavicular, or axillary adenopathy, Respiratory - Lungs are clear with good air movement bilaterally, Cardiovascular - Heart rhythm is regular. There is no murmur, gallop, or rub noted, Abdomen - Midly distended. Liver and spleen are not enlarged. There is no abdominal mass or ascites noted. There is no inguinal adenopathy, Extremities - No edema, Integumentary - There is a miminal residual skin eruption, mainly involving the neck and upper trunk. His skin is generally very dry and scaly, Neurologic - No focal neurologic deficits noted. Lab/Imaging: CBC shows hemoglobin 16.4 g, white blood cell count 6500, and platelet count 167,000. Comprehensive metabolic profile shows normal renal function with BUN 13 and creatinine 0.8 mg/dL. The total bilirubin is slightly elevated at 2.0 mg/dL with alkaline phosphatase slightly elevated at 143/130 IU/L. The other liver enzymes are normal. Problem List: 1. Well to moderately differentiated adenocarcinoma of the rectum. He underwent chemoradiation utilizing capecitabine for chemosensitization following initial diagnosis of the rectal cancer in May 2019. 2. He had subsequent disease progression to stage IVC (T3, N2, M1c) with CT evidence of metastatic involvement in the peritoneum and liver. He had associated ascites. CT-directed needle biopsy of a right peritoneal mass on 11/21/2019 confirmed adenocarcinoma consistent with colorectal primary. The tumor was confirmed to be MSI stable and KRAS wild-type. 3. Hypertension. 4. GERD. Problems Addressed with this Encounter and Plan: Patient with well to moderately differentiated adenocarcinoma of the rectum. He had undergone chemoradiation utilizing capecitabine for chemosensitization following initial diagnosis of the rectal cancer in May 2019. He had subsequent disease progression to stage IVC (T3, N2, M1c) with CT evidence of metastatic involvement in the peritoneum and liver. CT-directed needle biopsy of a right peritoneal mass on 11/21/2019 confirmed adenocarcinoma consistent with colorectal primary. The tumor was confirmed to be MSI stable and KRAS wild-type. In November 2019 began palliative chemotherapy with modified FOLFOX in combination with panitumumab. During treatment he required dose reductions in the chemotherapy due to neuropathy and thrombocytopenia, and he required treatment interruption and subsequent dose reduction in the panitumumab due to severe skin eruption. However, he had a very good clinical response to the treatment. As of April 2020, following completion of 12 cycles of chemotherapy, his treatment was transitioned to panitumumab monotherapy at a dosage of 4 mg/kg by IV infusion every 2 weeks. During follow-up he has tolerated the panitumumab monotherapy very well. He has some ongoing skin toxicity, mainly dryness and itching. He has no other side effects with it. Overall he is doing very well clinically. His restaging CT scans on 04/23/2021 showed no evidence of disease progression. As such, he continues panitumumab monotherapy at 4 mg/kg by IV infusion every 2 weeks. He will be scheduled for a follow-up visit in 6 weeks. Signed By: Tiago Edwards M.D. <<Signature on File>>
[2021-06-09] MEDS: sodium chloride 0.9% 250 ML IV (10:20)
[2021-06-09] MEDS: famotidine 20 mg/2 mL INJ IVP (10:20)
[2021-06-09] MEDS: acetaminophen 325 mg Tablet 650 MG PO (10:25)
== END 2021-06-13 23:59 | disposition home or self-care (01) ==
LOC: ONCMED 05:42
PROVIDERS: PCP Family Medicine; Visit Provider Internal Medicine Medical Oncology
DX: Z51.11 Encounter for antineoplastic chemotherapy (principal); C20 Malignant neoplasm of rectum; C78.6 Secondary malignant neoplasm of retroperitoneum and peritoneum; D70.1 Agranulocytosis secondary to cancer chemotherapy; T45.1X5A Adverse effect of antineoplastic and immunosuppressive drugs, initial encounter; D69.59 Other secondary thrombocytopenia; I10 Essential (primary) hypertension; K21.9 Gastro-esophageal reflux disease without esophagitis; Z79.899 Other long term (current) drug therapy
CPT/HCPCS: 36415; 80053; 82378; 85025; 96375; 96413; 99214; J3490; J7050; J9303

== ENCOUNTER 2021-07-07 05:37 | Outpatient (RCR) | payer MEDICARE, OTHER, SELFPAY ==
[2021-06-23] MEDS: famotidine 20 mg/2 mL INJ IVP (10:28)
[2021-06-23] MEDS: sodium chloride 0.9% 250 ML 75 ML IV (10:28)
[2021-06-23] MEDS: acetaminophen 325 mg Tablet 650 MG PO (10:30)
[2021-07-07 10:02] LABS: Basophils % 0.3 %; Eosinophils # 0.2 10^3/uL (0.0-0.8); Eosinophils % 2.2 %; Hemoglobin 15.9 g/dL (11.7-16.6); Lymphocytes # 1.1 10^3/uL (0.8-4.8); Lymphocytes % 15.8 %; Mean Corpuscular HGB Conc 33.8 g/dL (30.0-36.0); Mean Corpuscular Hemoglobin 30.9 pg (28.0-34.0); Mean Corpuscular Volume 91.4 fl (80-94); Mean Platelet Volume 10.7 fL (7.4-10.4); Monocytes # 0.6 10^3/uL (0.2-0.9); Monocytes % 8.6 %; Neutrophils # 4.92 10^3/uL (1.8-7.7); Neutrophils % 72.5 %; Nucleated Red Blood Cells % 0 %; Platelet Count 175 10^3/cmm (130-400); Red Blood Count 5.14 10^6/uL (4.1-5.3); White Blood Count 6.8 10^3/uL (4.0-10.0)
[2021-07-07 10:41] LABS: Carcinoembryonic Antigen 2.3 ng/mL (0.0-4.7)
[2021-07-07 10:52] LABS: Alanine Aminotransferase 19 U/L (0-41); Albumin Level 4.1 g/dL (3.5-5.2); Alkaline Phosphatase 137 IU/L (40-130); Anion Gap 16.1 (5-19); Aspartate Amino Transferase 21 U/L (0-40); Blood Urea Nitrogen 7 mg/dL (8-23); Calcium 8.1 mg/dL (8.5-10.5); Carbon Dioxide 23 mmol/L (22-29); Chloride 104 mmol/L (98-107); Globulin 2.2 g/dL (1.3-4.6); Glucose 93 mg/dL (65-115); Osmolality Calculated 286 mOsm/kg (285-295); Potassium 4.1 mmol/L (3.5-5.1); Sodium 139 mmol/L (136-145); Total Bilirubin 1.9 mg/dL (0.15-1.2); Total Protein 6.3 g/dL (6.6-8.7)
[2021-07-07] MEDS: famotidine 20 mg/2 mL INJ IVP (11:20)
[2021-07-07] MEDS: sodium chloride 0.9% 250 ML 75 ML IV (11:20)
[2021-07-07] MEDS: acetaminophen 325 mg Tablet 650 MG PO (11:20)
--- NOTE | 2021-07-07 11:29 | ONC FU_ITS ---
Dr. Edwards Patient Follow-Up Note Patient: Mick Fritz Unit #: [id number]: 1955 Dicatated By: Tiago Edwards M.D.Date of Visit:Jul 07, 2021 Onc Med Follow-up/Prog Note Chief Complaint: Rectal cancer. 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 In April 2019 he had been referred to Dr. Altamirano for excision of a skin lesion on his chest. He also was in need of screening colonoscopy. The skin lesion turned out to be a basal cell carcinoma. The colonoscopy showed a pedunculated polyp in the descending colon which was able to be removed endoscopically. Also noted was a malignant appearing mass involving two thirds of the circumference at the first rectal fold. 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 The rectal biopsy showed tubulovillous adenoma with focal high-grade dysplasia. As it was clearly a malignant appearing lesion, he then underwent sigmoidoscopy with a repeat biopsy on 05/15/2019. Pathology at that time was consistent with well to moderately differentiated adenocarcinoma. CT abdomen pelvis showed circumferential perirectal soft tissue thickening consistent with rectal neoplasm. Also noted was left perirectal lymphadenopathy and aortocaval lymphadenopathy consistent with metastatic disease with the largest aortocaval node measuring 2.0 cm and the left perirectal node measuring 2.2 cm. He was referred to Dr. Otto in [place] for further management, and he then undergo neoadjuvant chemoradiation utilizing capecitabine for chemosensitization. He apparently was lost to follow-up there after completing the radiation. He was admitted to [facility] on 10/29/2019 after presenting to the emergency room with abdominal pain and swelling. His CT abdomen/pelvis showed evidence of abundant ascites and omental carcinomatosis. There was abnormal wall thickening and enhancement of the loops of small bowel, possibly reflecting enteritis, but concerning for neoplastic infiltration of the wall of the loops of bowel. An apple core type lesion with marked wall thickening and narrowing was noted in the distal sigmoid colon/rectum. A new ill-defined 2 cm nodule in the dome of the liver was new and suspicious for metastatic disease. On 10/30/2019 he underwent paracentesis with removal of 2000 mL of fluid. The cytology was negative. I had seen him initially on 11/02/2019. At that point he was still in pretty good performance status. Biopsy was recommended to confirm the histology of his disease, particularly with the pattern of metastatic involvement and the fact that his CEA level was normal. As the liver lesion was not accessible for needle biopsy, he underwent CT directed needle biopsy of a peritoneal mass on 11/21/2019. Pathology has just become available, and it does show metastatic adenocarcinoma, CDX 2 positive, consistent with colonic primary. In the meantime, a next generation sequencing study had been requested on his primary tumor. It showed the tumor to be MSI stable and KRAS wild type. His other medical illnesses include hypertension and GERD. He has a remote history of smoking a pack of cigarettes daily for about 10 years. He had quit smoking cigarettes sometime in his early 20s, but he has continued smoking a cigar about 3 times a week. INTERIM HISTORY: On 11/29/2019 he began cycle 1 of palliative chemotherapy with modified FOLFOX in combination with panitumumab. At that point he had very poor oral intake and very marginal performance status. He required IV fluid support, but he was able to tolerate the treatment without significant acute toxicity. By day 5 he was neutropenic, but he recovered uneventfully with Neupogen. He began to show gradual improvement in his symptoms. He was then able to continue treatment at 2-week intervals with Neulasta administered prophylactically. He began his 6th cycle of treatment on 02/06/2020. At that point he was given a 1 level reduction in the oxaliplatin dosage and a 20% reduction in the 5-FU dosage due to thrombocytopenia. The panitumumab was put on hold due to worsening skin eruption. He continued with his cycle 7 treatment on 02/20/2020. He tolerated it well. With cycle 8, on 03/05/2020, I did restart the panitumumab at a reduced dosage of 4 mg/kg. Restaging CT of the abdomen/pelvis on 03/14/2020 showed evidence of interval response to therapy with resolution of previously described ascites and omental carcinomatosis. Also noted was resolution of the metastatic lesion in the dome of the liver. There was residual circumferential thickening involving the distal sigmoid colon and rectum. There was no evidence of disease progression. He continued with his 12th cycle of treatment on 04/30/2020. Beginning on 05/13/2020 I opted to drop the chemotherapy and continue with panitumumab monotherapy. Restaging CT scans on 06/20/2020 showed residual thickening involving the distal sigmoid colon and rectum, stable compared to the March 2020 CT and the October 2019 PET/CT. A 2.5 cm hepatic cyst along the undersurface of the right hepatic lobe appeared stable. There was mild diffuse fatty infiltration of the liver. There was no evidence of metastatic disease in the chest, abdomen, or pelvis. Restaging CT scans on 11/21/2020 showed no evidence for metastatic disease in the chest, abdomen, or pelvis. There was stable mild residual thickening involving the distal sigmoid colon and rectum. With those findings, he continued treatment with panitumumab at 2-week intervals. At his follow-up visit on 04/15/2021 he was having some new abdominal pain. He continued his treatment, but he then had restaging CT scans of the chest, abdomen, and pelvis on 04/23/2021. There was mild circumferential wall thickening involving the rectosigmoid, consistent with treated neoplasm and with unchanged appearance from previous studies. There was no evidence of disease progression. He continued treatment with panitumumab. He is seen for a scheduled visit. He has been feeling pretty good generally, though he continues to complain that he has no energy, mainly due to lack of ambition. His ECOG score is 1. He still has good appetite. He has no fever or night sweats. He complains today that he has had sores in different areas that will not heal. The most significant have been in the scalp and lower lip. He has not had any sores in his mouth. He has no shortness of breath, cough, or chest pain. He has not been having nausea. He does report having heartburn all the time, but he does not take medication consistently. Recently he has been having frequent bowel movements, but not actually diarrhea. He has very little abdominal pain. He has no complaints. He has no significant joint or bone pain. He does not complain of headache or dizziness. He does get some numbness in his arms when he is driving. He has no other focal neurologic symptoms. Medications: PriLOSEC OTC 1 Tablet (of 20 mg) Tablet, enteric coated Oral daily Allergies: No Known Allergies. Vital Signs: Performed on Jul 07, 2021 10:55 Height - 70.00 in Weight - 193 lbs (LOW) BSA - 2.06 sq.m BMI - 27.69 Temperature - 97 F (LOW) Pulse - 84 /min Respiration - 18 /min BP - 120/78 mm(hg) O2 Sat - 97 % Pain - 1 Fatigue - 8 Physical Examination: Constitutional - He looks pretty good generally, Eyes - Sclerae nonicteric. Conjunctivae clear, ENMT - No lesions noted in the oral cavity, Hematologic/Lymphatic - No cervical, clavicular, or axillary adenopathy, Respiratory - Lungs are clear with good air movement bilaterally, Cardiovascular - Heart rhythm is regular. There is no murmur, gallop, or rub noted, Abdomen - Soft. Liver and spleen are not enlarged. There is no abdominal mass or ascites noted. There is no inguinal adenopathy, Extremities - No edema, Integumentary - His skin is generally very dry. He has a miminal residual eruption in the neck/upper trunk. There are otherwise just scattered erythematous lesions. In the occipital scalp there is an area with some crusting and what appears to be most likely associated eczematous changes in the skin, Neurologic - No focal neurologic deficits noted. Lab/Imaging: Test performed on Jul 07, 2021 09:38 Sodium 139 mmol/L Potassium 4.1 mmol/L Chloride 104 mmol/L CO2 23 mmol/L Anion Gap 16.1 BUN 7 mg/dL Creatinine 0.6 mg/dL Cr Clearance (Est) 146.2100 mL/min eGFR 134.0 mL/min Glucose 93 mg/dL Osmolality - Calculated 286 mOsm/kg Calcium 8.1 mg/dL Protein, Total 6.3 g/dL Albumin 4.1 g/dL Globulin 2.2 g/dL Bilirubin, Total 1.9 mg/dL ALT (SGPT) 19 U/L AST (SGOT) 21 U/L Alkaline Phosphatase 137 IU/L WBC 6.8 10 3/uL RBC 5.14 10 6/uL HGB 15.9 g/dL HCT 47.0 % MCV 91.4 fl MCH 30.9 pg MCHC 33.8 g/dL RDW 13.0 % Platelet Count 175 10 3/cmm MPV 10.7 fL Neutrophils 4.92 10 3/uL Lymphocytes 1.1 10 3/uL Monocytes 0.6 10 3/uL Eosinophils 0.2 10 3/uL Basophils 0.0 10 3/uL Neutrophil % 72.5 % Lymphocyte % 15.8 % Monocyte % 8.6 % Eosinophil % 2.2 % Basophils % 0.3 % NRBC % 0 % CEA 2.3 ng/mL Problem List: 1. Well to moderately differentiated adenocarcinoma of the rectum. He underwent chemoradiation utilizing capecitabine for chemosensitization following initial diagnosis of the rectal cancer in May 2019. 2. He had subsequent disease progression to stage IVC (T3, N2, M1c) with CT evidence of metastatic involvement in the peritoneum and liver. He had associated ascites. CT-directed needle biopsy of a right peritoneal mass on 11/21/2019 confirmed adenocarcinoma consistent with colorectal primary. The tumor was confirmed to be MSI stable and KRAS wild-type. 3. Hypertension. 4. GERD. Problems Addressed with this Encounter and Plan: Patient with well to moderately differentiated adenocarcinoma of the rectum. He had undergone chemoradiation utilizing capecitabine for chemosensitization following initial diagnosis of the rectal cancer in May 2019. He had subsequent disease progression to stage IVC (T3, N2, M1c) with CT evidence of metastatic involvement in the peritoneum and liver. CT-directed needle biopsy of a right peritoneal mass on 11/21/2019 confirmed adenocarcinoma consistent with colorectal primary. The tumor was confirmed to be MSI stable and KRAS wild-type. In November 2019 began palliative chemotherapy with modified FOLFOX in combination with panitumumab. During treatment he required dose reductions in the chemotherapy due to neuropathy and thrombocytopenia, and he required treatment interruption and subsequent dose reduction in the panitumumab due to severe skin eruption. However, he had a very good clinical response to the treatment. As of April 2020, following completion of 12 cycles of chemotherapy, his treatment was transitioned to panitumumab monotherapy, initially at a dosage of 4 mg/kg by IV infusion every 2 weeks. As of January 2021 the dosage was increased back to 6 mg/kg. During follow-up he has tolerated the panitumumab monotherapy very well. He has some ongoing skin toxicity, mainly dryness and itching. He also has had sores in different areas that will not heal. The most significant is in the occipital scalp, there appears to be some associated eczematous changes in the skin. He also has been somewhat more fatigued. His restaging CT scans in April 2021 showed no evidence of disease progression. As such, he will continue treatment with panitumumab 6 mg/kg by IV infusion every 2 weeks. He will be scheduled for a follow-up visit in 6 weeks. In the meantime, I will have him try using a topical steroid cream. Signed By: Tiago Edwards M.D. <<Signature on File>>
== END 2021-07-14 23:59 | disposition home or self-care (01) ==
LOC: ONCMED 05:37
PROVIDERS: PCP Family Medicine; Visit Provider Internal Medicine Medical Oncology
DX: Z51.12 Encounter for antineoplastic immunotherapy (principal); C20 Malignant neoplasm of rectum; C78.7 Secondary malignant neoplasm of liver and intrahepatic bile duct; C78.6 Secondary malignant neoplasm of retroperitoneum and peritoneum; R18.0 Malignant ascites; I10 Essential (primary) hypertension; K21.9 Gastro-esophageal reflux disease without esophagitis; Z79.899 Other long term (current) drug therapy; Z92.21 Personal history of antineoplastic chemotherapy; Z92.3 Personal history of irradiation
CPT/HCPCS: 80053; 82378; 85025; 96375; 96413; 99214; J3490; J7050; J9303

== ENCOUNTER 2021-08-04 06:20 | Outpatient (RCR) | payer MEDICARE, OTHER, SELFPAY ==
[2021-07-21] MEDS: sodium chloride 0.9% 250 ML IV (13:30)
[2021-07-21] MEDS: famotidine 20 mg/2 mL INJ IVP (13:30)
[2021-07-21] MEDS: acetaminophen 325 mg Tablet 650 MG PO (13:35)
[2021-08-04] MEDS: acetaminophen 325 mg Tablet 650 MG PO (10:37)
[2021-08-04] MEDS: famotidine 20 mg/2 mL INJ IVP (10:37)
[2021-08-04] MEDS: sodium chloride 0.9% 250 ML IV (10:55)
== END 2021-08-13 23:59 | disposition home or self-care (01) ==
LOC: ONCMED 06:20
PROVIDERS: PCP Family Medicine; Visit Provider Internal Medicine Medical Oncology
DX: Z51.11 Encounter for antineoplastic chemotherapy (principal); C20 Malignant neoplasm of rectum; C78.6 Secondary malignant neoplasm of retroperitoneum and peritoneum; D70.1 Agranulocytosis secondary to cancer chemotherapy; T45.1X5D Adverse effect of antineoplastic and immunosuppressive drugs, subsequent encounter; D69.59 Other secondary thrombocytopenia; Z79.899 Other long term (current) drug therapy
CPT/HCPCS: 96375; 96413; J3490; J7050; J9303

== ENCOUNTER 2021-09-11 06:15 | Outpatient (RCR) | payer MEDICARE, OTHER, SELFPAY ==
[2021-08-18 10:02] LABS: Basophils % 0.1 %; Eosinophils # 0.3 10^3/uL (0.0-0.8); Hemoglobin 16.4 g/dL (11.7-16.6); Lymphocytes # 1.2 10^3/uL (0.8-4.8); Lymphocytes % 11.1 %; Mean Corpuscular HGB Conc 33.5 g/dL (30.0-36.0); Mean Corpuscular Hemoglobin 30.4 pg (28.0-34.0); Mean Corpuscular Volume 90.9 fl (80-94); Mean Platelet Volume 10.7 fL (7.4-10.4); Monocytes # 1.1 10^3/uL (0.2-0.9); Monocytes % 10.4 %; Neutrophils # 7.76 10^3/uL (1.8-7.7); Neutrophils % 75.1 %; Nucleated Red Blood Cells % 0 %; Platelet Count 253 10^3/cmm (130-400); Red Blood Count 5.39 10^6/uL (4.1-5.3); Red Cell Distribution Width 13.3 % (12.1-15.1); White Blood Count 10.3 10^3/uL (4.0-10.0)
[2021-08-18 10:36] LABS: Carcinoembryonic Antigen 2.1 ng/mL (0.0-4.7)
[2021-08-18 10:47] LABS: Alanine Aminotransferase 45 U/L (0-41); Alkaline Phosphatase 165 IU/L (40-130); Anion Gap 17.3 (5-19); Aspartate Amino Transferase 33 U/L (0-40); Blood Urea Nitrogen 10 mg/dL (8-23); Calcium 8.3 mg/dL (8.5-10.5); Carbon Dioxide 24 mmol/L (22-29); Chloride 99 mmol/L (98-107); Globulin 3.4 g/dL (1.3-4.6); Glomerular Filtration Rate 112.1 mL/min (90-130); Glucose 107 mg/dL (65-115); Osmolality Calculated 282 mOsm/kg (285-295); Potassium 4.3 mmol/L (3.5-5.1); Sodium 136 mmol/L (136-145); Total Bilirubin 1.7 mg/dL (0.15-1.2); Total Protein 7.4 g/dL (6.6-8.7)
--- NOTE | 2021-08-18 19:42 | ONC FU_ITS ---
Dr. Edwards Patient Follow-Up Note Patient: Mick Fritz Unit #: [id number]: [id number] Dicatated By: Tiago Edwards M.D.Date of Visit:Aug 18, 2021 Onc Med Follow-up/Prog Note Chief Complaint: Rectal cancer. 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 In April 2019 he had been referred to Dr. Altamirano for excision of a skin lesion on his chest. He also was in need of screening colonoscopy. The skin lesion turned out to be a basal cell carcinoma. The colonoscopy showed a pedunculated polyp in the descending colon which was able to be removed endoscopically. Also noted was a malignant appearing mass involving two thirds of the circumference at the first rectal fold. 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 The rectal biopsy showed tubulovillous adenoma with focal high-grade dysplasia. As it was clearly a malignant appearing lesion, he then underwent sigmoidoscopy with a repeat biopsy on 05/15/2019. Pathology at that time was consistent with well to moderately differentiated adenocarcinoma. CT abdomen pelvis showed circumferential perirectal soft tissue thickening consistent with rectal neoplasm. Also noted was left perirectal lymphadenopathy and aortocaval lymphadenopathy consistent with metastatic disease with the largest aortocaval node measuring 2.0 cm and the left perirectal node measuring 2.2 cm. He was referred to Dr. Otto in [place] for further management, and he then undergo neoadjuvant chemoradiation utilizing capecitabine for chemosensitization. He apparently was lost to follow-up there after completing the radiation. He was admitted to [facility] on 10/29/2019 after presenting to the emergency room with abdominal pain and swelling. His CT abdomen/pelvis showed evidence of abundant ascites and omental carcinomatosis. There was abnormal wall thickening and enhancement of the loops of small bowel, possibly reflecting enteritis, but concerning for neoplastic infiltration of the wall of the loops of bowel. An apple core type lesion with marked wall thickening and narrowing was noted in the distal sigmoid colon/rectum. A new ill-defined 2 cm nodule in the dome of the liver was new and suspicious for metastatic disease. On 10/30/2019 he underwent paracentesis with removal of 2000 mL of fluid. The cytology was negative. I had seen him initially on 11/02/2019. At that point he was still in pretty good performance status. Biopsy was recommended to confirm the histology of his disease, particularly with the pattern of metastatic involvement and the fact that his CEA level was normal. As the liver lesion was not accessible for needle biopsy, he underwent CT directed needle biopsy of a peritoneal mass on 11/21/2019. Pathology has just become available, and it does show metastatic adenocarcinoma, CDX 2 positive, consistent with colonic primary. In the meantime, a next generation sequencing study had been requested on his primary tumor. It showed the tumor to be MSI stable and KRAS wild type. His other medical illnesses include hypertension and GERD. He has a remote history of smoking a pack of cigarettes daily for about 10 years. He had quit smoking cigarettes sometime in his early 20s, but he has continued smoking a cigar about 3 times a week. INTERIM HISTORY: On 11/29/2019 he began cycle 1 of palliative chemotherapy with modified FOLFOX in combination with panitumumab. At that point he had very poor oral intake and very marginal performance status. He required IV fluid support, but he was able to tolerate the treatment without significant acute toxicity. By day 5 he was neutropenic, but he recovered uneventfully with Neupogen. He began to show gradual improvement in his symptoms. He was then able to continue treatment at 2-week intervals with Neulasta administered prophylactically. He began his 6th cycle of treatment on 02/06/2020. At that point he was given a 1 level reduction in the oxaliplatin dosage and a 20% reduction in the 5-FU dosage due to thrombocytopenia. The panitumumab was put on hold due to worsening skin eruption. He continued with his cycle 7 treatment on 02/20/2020. He tolerated it well. With cycle 8, on 03/05/2020, I did restart the panitumumab at a reduced dosage of 4 mg/kg. Restaging CT of the abdomen/pelvis on 03/14/2020 showed evidence of interval response to therapy with resolution of previously described ascites and omental carcinomatosis. Also noted was resolution of the metastatic lesion in the dome of the liver. There was residual circumferential thickening involving the distal sigmoid colon and rectum. There was no evidence of disease progression. He continued with his 12th cycle of treatment on 04/30/2020. Beginning on 05/13/2020 I opted to drop the chemotherapy and continue with panitumumab monotherapy. Restaging CT scans on 06/20/2020 showed residual thickening involving the distal sigmoid colon and rectum, stable compared to the March 2020 CT and the October 2019 PET/CT. A 2.5 cm hepatic cyst along the undersurface of the right hepatic lobe appeared stable. There was mild diffuse fatty infiltration of the liver. There was no evidence of metastatic disease in the chest, abdomen, or pelvis. Restaging CT scans on 11/21/2020 showed no evidence for metastatic disease in the chest, abdomen, or pelvis. There was stable mild residual thickening involving the distal sigmoid colon and rectum. With those findings, he continued treatment with panitumumab at 2-week intervals. At his follow-up visit on 04/15/2021 he was having some new abdominal pain. He continued his treatment, but he then had restaging CT scans of the chest, abdomen, and pelvis on 04/23/2021. There was mild circumferential wall thickening involving the rectosigmoid, consistent with treated neoplasm and with unchanged appearance from previous studies. There was no evidence of disease progression. He continued treatment with panitumumab. He is seen for a scheduled visit. He has not been feeling very good. His main complaint is that he has been having a lot more pain, especially in the left abdominal and flank area when he is lying on his right side. He son indicates that he was having pretty severe pain over the weekend. His energy is not real good. He is still able to do light work. ECOG score is 1. He had been a no sugar diet for 6 weeks, but he is now going back to a regular diet. He has no fever or night sweats. He has had no mouth sores. He has no shortness of breath, cough, or chest pain. He has no other GI or complaints. He has no significant joint or bone pain. He does not complain of headache or dizziness. He has some numbness in his arms, mainly when he is driving. Medications: PriLOSEC OTC 1 Tablet (of 20 mg) Tablet, enteric coated Oral daily Allergies: No Known Allergies. Vital Signs: Performed on Aug 18, 2021 11:50 Height - 70.00 in Weight - 183.2 lbs (LOW) BSA - 2.01 sq.m BMI - 26.29 Temperature - 98.1 F (LOW) Pulse - 102 /min (HIGH) Respiration - 18 /min BP - 118/86 mm(hg) O2 Sat - 97 % Pain - 0 Fatigue - 8 Physical Examination: Constitutional - He appears somewhat weak generally, Eyes - Sclerae nonicteric. Conjunctivae clear, ENMT - No lesions noted in the oral cavity, Hematologic/Lymphatic - No cervical, clavicular, or axillary adenopathy, Respiratory - Lungs are clear with good air movement bilaterally, Cardiovascular - Heart rhythm is regular. There is no murmur, gallop, or rub noted, Abdomen - Soft. Liver and spleen are not enlarged. There is no abdominal mass or ascites noted. There is no inguinal adenopathy, Extremities - No edema, Integumentary - He has worsening eruption, particularly over the abdominal wall and arms. It appears to be getting pustular, Neurologic - No focal neurologic deficits noted. Lab/Imaging: Test performed on Aug 18, 2021 09:35 Sodium 136 mmol/L Potassium 4.3 mmol/L Chloride 99 mmol/L CO2 24 mmol/L Anion Gap 17.3 BUN 10 mg/dL Creatinine 0.7 mg/dL Cr Clearance (Est) 125.3200 mL/min eGFR 112.1 mL/min Glucose 107 mg/dL Osmolality - Calculated 282 mOsm/kg Calcium 8.3 mg/dL Protein, Total 7.4 g/dL Albumin 4.0 g/dL Globulin 3.4 g/dL Bilirubin, Total 1.7 mg/dL ALT (SGPT) 45 U/L AST (SGOT) 33 U/L Alkaline Phosphatase 165 IU/L WBC 10.3 10 3/uL RBC 5.39 10 6/uL HGB 16.4 g/dL HCT 49.0 % MCV 90.9 fl MCH 30.4 pg MCHC 33.5 g/dL RDW 13.3 % Platelet Count 253 10 3/cmm MPV 10.7 fL Neutrophils 7.76 10 3/uL Lymphocytes 1.2 10 3/uL Monocytes 1.1 10 3/uL Eosinophils 0.3 10 3/uL Basophils 0.0 10 3/uL Neutrophil % 75.1 % Lymphocyte % 11.1 % Monocyte % 10.4 % Eosinophil % 3.0 % Basophils % 0.1 % NRBC % 0 % CEA 2.1 ng/mL Problem List: 1. Well to moderately differentiated adenocarcinoma of the rectum. He underwent chemoradiation utilizing capecitabine for chemosensitization following initial diagnosis of the rectal cancer in May 2019. 2. He had subsequent disease progression to stage IVC (T3, N2, M1c) with CT evidence of metastatic involvement in the peritoneum and liver. He had associated ascites. CT-directed needle biopsy of a right peritoneal mass on 11/21/2019 confirmed adenocarcinoma consistent with colorectal primary. The tumor was confirmed to be MSI stable and KRAS wild-type. 3. Hypertension. 4. GERD. Problems Addressed with this Encounter and Plan: Patient with well to moderately differentiated adenocarcinoma of the rectum. He had undergone chemoradiation utilizing capecitabine for chemosensitization following initial diagnosis of the rectal cancer in May 2019. He had subsequent disease progression to stage IVC (T3, N2, M1c) with CT evidence of metastatic involvement in the peritoneum and liver. CT-directed needle biopsy of a right peritoneal mass on 11/21/2019 confirmed adenocarcinoma consistent with colorectal primary. The tumor was confirmed to be MSI stable and KRAS wild-type. In November 2019 began palliative chemotherapy with modified FOLFOX in combination with panitumumab. During treatment he required dose reductions in the chemotherapy due to neuropathy and thrombocytopenia, and he required treatment interruption and subsequent dose reduction in the panitumumab due to severe skin eruption. However, he had a very good clinical response to the treatment. As of April 2020, following completion of 12 cycles of chemotherapy, his treatment was transitioned to panitumumab monotherapy, initially at a dosage of 4 mg/kg by IV infusion every 2 weeks. As of January 2021 the dosage was increased back to 6 mg/kg. During follow-up he had ongoing skin toxicity, and that now seems to be getting worse. He also has been having more abdominal pain, which is worrisome for disease progression. As such, his treatment will be put on hold and he will be scheduled for a restaging PET/CT. He will have further evaluation as indicated. In the meantime, he will be given antibiotic coverage with doxycycline and I will have him start steroid therapy with prednisone. Signed By: Tiago Edwards M.D. <<Signature on File>>
[2021-09-03 10:14] LABS: Basophils % 0.3 %; Eosinophils # 0.2 10^3/uL (0.0-0.8); Eosinophils % 2.9 %; Hematocrit 44.9 % (42.0-52.0); Hemoglobin 14.6 g/dL (11.7-16.6); Lymphocytes # 1.1 10^3/uL (0.8-4.8); Lymphocytes % 13.8 %; Mean Corpuscular HGB Conc 32.5 g/dL (30.0-36.0); Mean Corpuscular Hemoglobin 30.1 pg (28.0-34.0); Mean Corpuscular Volume 92.6 fl (80-94); Mean Platelet Volume 10.4 fL (7.4-10.4); Monocytes # 0.5 10^3/uL (0.2-0.9); Monocytes % 6.5 %; Neutrophils # 5.76 10^3/uL (1.8-7.7); Neutrophils % 75.8 %; Nucleated Red Blood Cells % 0 %; Platelet Count 173 10^3/cmm (130-400); Red Blood Count 4.85 10^6/uL (4.1-5.3); Red Cell Distribution Width 14.2 % (12.1-15.1); White Blood Count 7.6 10^3/uL (4.0-10.0)
[2021-09-03 10:22] LABS: Alanine Aminotransferase 16 U/L (0-41); Albumin Level 3.9 g/dL (3.5-5.2); Alkaline Phosphatase 107 IU/L (40-130); Anion Gap 13.8 (5-19); Aspartate Amino Transferase 19 U/L (0-40); Blood Urea Nitrogen 14 mg/dL (8-23); Calcium 7.8 mg/dL (8.5-10.5); Carbon Dioxide 25 mmol/L (22-29); Chloride 104 mmol/L (98-107); Globulin 2.2 g/dL (1.3-4.6); Glucose 119 mg/dL (65-115); Osmolality Calculated 290 mOsm/kg (285-295); Potassium 3.8 mmol/L (3.5-5.1); Sodium 139 mmol/L (136-145); Total Bilirubin 1.3 mg/dL (0.15-1.2); Total Protein 6.1 g/dL (6.6-8.7)
--- NOTE | 2021-09-03 14:07 | ONC FU_ITS ---
Dr. Edwards Patient Follow-Up Note Patient: Mick Fritz Unit #: [id number]: [id number] Dicatated By: Tiago Edwards M.D.Date of Visit:Sep 03, 2021 Onc Med Follow-up/Prog Note Chief Complaint: Rectal cancer. 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 In April 2019 he had been referred to Dr. Altamirano for excision of a skin lesion on his chest. He also was in need of screening colonoscopy. The skin lesion turned out to be a basal cell carcinoma. The colonoscopy showed a pedunculated polyp in the descending colon which was able to be removed endoscopically. Also noted was a malignant appearing mass involving two thirds of the circumference at the first rectal fold. 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 The rectal biopsy showed tubulovillous adenoma with focal high-grade dysplasia. As it was clearly a malignant appearing lesion, he then underwent sigmoidoscopy with a repeat biopsy on 05/15/2019. Pathology at that time was consistent with well to moderately differentiated adenocarcinoma. CT abdomen pelvis showed circumferential perirectal soft tissue thickening consistent with rectal neoplasm. Also noted was left perirectal lymphadenopathy and aortocaval lymphadenopathy consistent with metastatic disease with the largest aortocaval node measuring 2.0 cm and the left perirectal node measuring 2.2 cm. He was referred to Dr. Otto in [place] for further management, and he then undergo neoadjuvant chemoradiation utilizing capecitabine for chemosensitization. He apparently was lost to follow-up there after completing the radiation. He was admitted to [facility] on 10/29/2019 after presenting to the emergency room with abdominal pain and swelling. His CT abdomen/pelvis showed evidence of abundant ascites and omental carcinomatosis. There was abnormal wall thickening and enhancement of the loops of small bowel, possibly reflecting enteritis, but concerning for neoplastic infiltration of the wall of the loops of bowel. An apple core type lesion with marked wall thickening and narrowing was noted in the distal sigmoid colon/rectum. A new ill-defined 2 cm nodule in the dome of the liver was new and suspicious for metastatic disease. On 10/30/2019 he underwent paracentesis with removal of 2000 mL of fluid. The cytology was negative. I had seen him initially on 11/02/2019. At that point he was still in pretty good performance status. Biopsy was recommended to confirm the histology of his disease, particularly with the pattern of metastatic involvement and the fact that his CEA level was normal. As the liver lesion was not accessible for needle biopsy, he underwent CT directed needle biopsy of a peritoneal mass on 11/21/2019. Pathology has just become available, and it does show metastatic adenocarcinoma, CDX 2 positive, consistent with colonic primary. In the meantime, a next generation sequencing study had been requested on his primary tumor. It showed the tumor to be MSI stable and KRAS wild type. His other medical illnesses include hypertension and GERD. He has a remote history of smoking a pack of cigarettes daily for about 10 years. He had quit smoking cigarettes sometime in his early 20s, but he has continued smoking a cigar about 3 times a week. INTERIM HISTORY: On 11/29/2019 he began cycle 1 of palliative chemotherapy with modified FOLFOX in combination with panitumumab. At that point he had very poor oral intake and very marginal performance status. He required IV fluid support, but he was able to tolerate the treatment without significant acute toxicity. By day 5 he was neutropenic, but he recovered uneventfully with Neupogen. He began to show gradual improvement in his symptoms. He was then able to continue treatment at 2-week intervals with Neulasta administered prophylactically. He began his 6th cycle of treatment on 02/06/2020. At that point he was given a 1 level reduction in the oxaliplatin dosage and a 20% reduction in the 5-FU dosage due to thrombocytopenia. The panitumumab was put on hold due to worsening skin eruption. He continued with his cycle 7 treatment on 02/20/2020. He tolerated it well. With cycle 8, on 03/05/2020, I did restart the panitumumab at a reduced dosage of 4 mg/kg. Restaging CT of the abdomen/pelvis on 03/14/2020 showed evidence of interval response to therapy with resolution of previously described ascites and omental carcinomatosis. Also noted was resolution of the metastatic lesion in the dome of the liver. There was residual circumferential thickening involving the distal sigmoid colon and rectum. There was no evidence of disease progression. He continued with his 12th cycle of treatment on 04/30/2020. Beginning on 05/13/2020 I opted to drop the chemotherapy and continue with panitumumab monotherapy. Restaging CT scans on 06/20/2020 showed residual thickening involving the distal sigmoid colon and rectum, stable compared to the March 2020 CT and the October 2019 PET/CT. A 2.5 cm hepatic cyst along the undersurface of the right hepatic lobe appeared stable. There was mild diffuse fatty infiltration of the liver. There was no evidence of metastatic disease in the chest, abdomen, or pelvis. Restaging CT scans on 11/21/2020 showed no evidence for metastatic disease in the chest, abdomen, or pelvis. There was stable mild residual thickening involving the distal sigmoid colon and rectum. With those findings, he continued treatment with panitumumab at 2-week intervals. At his follow-up visit on 04/15/2021 he was having some new abdominal pain. He continued his treatment, but he then had restaging CT scans of the chest, abdomen, and pelvis on 04/23/2021. There was mild circumferential wall thickening involving the rectosigmoid, consistent with treated neoplasm and with unchanged appearance from previous studies. There was no evidence of disease progression. He continued treatment with panitumumab. At his follow-up visit on 08/18/2021 he had multiple complaints which included increased abdominal pain and fatigue as well as significant worsening of his skin eruption. I did opt to put his treatment on hold, and he was given empiric treatment with prednisone and doxycycline. Restaging PET/CT on 08/22/2021 showed improvement in the omental implants and resolution of ascites compared to the study from October 2019. There did appear to be progression of hepatic metastatic disease and was also noted to be a new left periaortic retroperitoneal lymph node measuring 2.5 cm with SUV 4.3, consistent with malignancy/progression. New rectal wall activity was felt to be likely physiologic, but recurrence was not excluded, SUV 8.7. He is seen for a follow-up visit. He has been feeling much better. His skin eruption has improved significantly. He still has some itching, he says it is going away. He still has abdominal pain, but it is intermittent and it is also much improved to what it was. His appetite is good. He has pretty good energy now. ECOG score is 1. He does not have fever or night sweats. He has had no mouth sores. He has no shortness of breath, cough, or chest pain. He is not having nausea. His acid reflux is adequately managed with medication. Bowel function has been okay, but he does have mucus discharge from the rectum. He has some urgency with urination. He has no significant joint or bone pain. He does not complain of headache or dizziness. He has residual numbness in his arms/hands, right worse than left. Medications: PriLOSEC OTC 1 Tablet (of 20 mg) Tablet, enteric coated Oral daily Allergies: No Known Allergies. Vital Signs: Performed on Sep 03, 2021 11:01 Height - 70.00 in Weight - 185.8 lbs (HIGH) BSA - 2.02 sq.m BMI - 26.66 Temperature - 97.0 F (LOW) Pulse - 79 /min Respiration - 18 /min BP - 168/95 mm(hg) (HIGH) O2 Sat - 99 % Pain - 2 Fatigue - 0 Physical Examination: Constitutional - He looks a little better generally, Eyes - Sclerae nonicteric. Conjunctivae clear, ENMT - No lesions noted in the oral cavity, Hematologic/Lymphatic - No cervical, clavicular, or axillary adenopathy, Respiratory - Lungs sound clear, Cardiovascular - Heart rhythm is regular. There is no murmur, gallop, or rub noted, Abdomen - Soft. Liver and spleen are not enlarged. There is no abdominal mass or ascites noted. There is no inguinal adenopathy, Extremities - No edema, Integumentary - He now has just a mild residual skin eruption, Neurologic - No focal neurologic deficits noted. Lab/Imaging: Test performed on Sep 03, 2021 09:45 Sodium 139 mmol/L Potassium 3.8 mmol/L Chloride 104 mmol/L CO2 25 mmol/L Anion Gap 13.8 BUN 14 mg/dL Creatinine 0.6 mg/dL Cr Clearance (Est) 140.46 mL/min eGFR 134.0 mL/min Glucose 119 mg/dL Osmolality - Calculated 290 mOsm/kg Calcium 7.8 mg/dL Protein, Total 6.1 g/dL Albumin 3.9 g/dL Globulin 2.2 g/dL Bilirubin, Total 1.3 mg/dL ALT (SGPT) 16 U/L AST (SGOT) 19 U/L Alkaline Phosphatase 107 IU/L WBC 7.6 10 3/uL RBC 4.85 10 6/uL HGB 14.6 g/dL HCT 44.9 % MCV 92.6 fl MCH 30.1 pg MCHC 32.5 g/dL RDW 14.2 % Platelet Count 173 10 3/cmm MPV 10.4 fL Neutrophils 5.76 10 3/uL Lymphocytes 1.1 10 3/uL Monocytes 0.5 10 3/uL Eosinophils 0.2 10 3/uL Basophils 0.0 10 3/uL Neutrophil % 75.8 % Lymphocyte % 13.8 % Monocyte % 6.5 % Eosinophil % 2.9 % Basophils % 0.3 % NRBC % 0 % Problem List: 1. Well to moderately differentiated adenocarcinoma of the rectum. He underwent chemoradiation utilizing capecitabine for chemosensitization following initial diagnosis of the rectal cancer in May 2019. 2. He had subsequent disease progression to stage IVC (T3, N2, M1c) with CT evidence of metastatic involvement in the peritoneum and liver. He had associated ascites. CT-directed needle biopsy of a right peritoneal mass on 11/21/2019 confirmed adenocarcinoma consistent with colorectal primary. The tumor was confirmed to be MSI stable and KRAS wild-type. 3. Hypertension. 4. GERD. Problems Addressed with this Encounter and Plan: Patient with well to moderately differentiated adenocarcinoma of the rectum. He had undergone chemoradiation utilizing capecitabine for chemosensitization following initial diagnosis of the rectal cancer in May 2019. He had subsequent disease progression to stage IVC (T3, N2, M1c) with CT evidence of metastatic involvement in the peritoneum and liver. CT-directed needle biopsy of a right peritoneal mass on 11/21/2019 confirmed adenocarcinoma consistent with colorectal primary. The tumor was confirmed to be MSI stable and KRAS wild-type. In November 2019 began palliative chemotherapy with modified FOLFOX in combination with panitumumab. During treatment he required dose reductions in the chemotherapy due to neuropathy and thrombocytopenia, and he required treatment interruption and subsequent dose reduction in the panitumumab due to severe skin eruption. However, he had a very good clinical response to the treatment. As of April 2020, following completion of 12 cycles of chemotherapy, his treatment was transitioned to panitumumab monotherapy, initially at a dosage of 4 mg/kg by IV infusion every 2 weeks. As of January 2021 the dosage was increased back to 6 mg/kg. At his follow-up visit on 08/18/2021 he reported worsening fatigue and abdominal pain as well as significant worsening of his skin eruption. His treatment was put on hold. Restaging PET/CT on 08/22/2021 showed evidence of progression of hepatic metastatic disease and new involvement in the left periaortic retroperitoneal lymph node. Rectal wall activity was thought to be physiologic, but it did have significant SUV at 8.7, more likely indicative of active primary malignancy. The PET/CT findings were reviewed with the patient and we discussed the clinic complications. It appears likely that he has achieved maximum benefit with the EGFR inhibitor, and at this point I am going to recommend that he proceed to second line treatment with a FOLFIRI chemotherapy regimen in combination with Avastin. And will be administered at standard dosages. I reviewed anticipated side effects with the chemotherapy which may include nausea/vomiting, alopecia, fatigue, mucositis, diarrhea, and low blood counts, among others. I also reviewed Avastin side effects which may include hypertension, proteinuria, and bleeding or thrombosis as well as potential risk for intestinal perforation. He will return to begin his first cycle of treatment subject to verification of insurance coverage. In the meantime, he will continue prednisone but with the dosage reduced to 10 mg daily. Signed By: Tiago Edwards M.D. <<Signature on File>>
[2021-09-09 10:10] LABS: Basophils % 0.4 %; Eosinophils # 0.2 10^3/uL (0.0-0.8); Eosinophils % 2.4 %; Hematocrit 45.9 % (42.0-52.0); Hemoglobin 15.2 g/dL (11.7-16.6); Lymphocytes # 0.9 10^3/uL (0.8-4.8); Lymphocytes % 13.6 %; Mean Corpuscular HGB Conc 33.1 g/dL (30.0-36.0); Mean Corpuscular Hemoglobin 31.1 pg (28.0-34.0); Mean Corpuscular Volume 94.1 fl (80-94); Mean Platelet Volume 10.6 fL (7.4-10.4); Monocytes # 0.4 10^3/uL (0.2-0.9); Monocytes % 6.5 %; Neutrophils # 5.17 10^3/uL (1.8-7.7); Neutrophils % 76.7 %; Nucleated Red Blood Cells % 0 %; Platelet Count 160 10^3/cmm (130-400); Red Blood Count 4.88 10^6/uL (4.1-5.3); Red Cell Distribution Width 14.4 % (12.1-15.1); White Blood Count 6.8 10^3/uL (4.0-10.0)
[2021-09-09 10:14] LABS: Add Urine Microscopic? YES; Bacteria Urine TRACE /hpf; Bilirubin Urine Neg (Negative); Blood Urine Trace (Negative); Glucose Urine UA Norm (Normal); Ketones Urine Negative (Negative); Leukocyte Esterase Urine Negative (Negative); Mucus Urine 2+ /hpf; Nitrate Urine Negative (Negative); Protein Urine Neg (Negative); Specific Gravity, Urine 1.025 (1.005-1.030); Squamous Epithelial Cell Urine RARE /hpf (0-5); Urine Appearance Clear (CLEAR); Urine Color Yellow (Yellow); Urobilinogen Urine 1 mg/dL (Negative); WBC Urine RARE /hpf (0-5); pH Urine 5 (5-7)
[2021-09-09] MEDS: dextrose 5% 250 ML 75 ML IV (10:15)
[2021-09-09] MEDS: palonosetron 0.25 mg/5 mL SDV IV (10:15)
[2021-09-09 10:33] LABS: Alanine Aminotransferase 18 U/L (0-41); Albumin Level 3.9 g/dL (3.5-5.2); Alkaline Phosphatase 109 IU/L (40-130); Anion Gap 15.2 (5-19); Aspartate Amino Transferase 17 U/L (0-40); Blood Urea Nitrogen 14 mg/dL (8-23); Calcium 8.1 mg/dL (8.5-10.5); Carbon Dioxide 24 mmol/L (22-29); Chloride 106 mmol/L (98-107); Globulin 2.5 g/dL (1.3-4.6); Glomerular Filtration Rate 112.1 mL/min (90-130); Glucose 120 mg/dL (65-115); Osmolality Calculated 294 mOsm/kg (285-295); Potassium 4.2 mmol/L (3.5-5.1); Sodium 141 mmol/L (136-145); Total Bilirubin 1.1 mg/dL (0.15-1.2); Total Protein 6.4 g/dL (6.6-8.7)
== END 2021-09-13 23:59 | disposition home or self-care (01) ==
LOC: ONCMED 06:15
PROVIDERS: PCP Family Medicine; Visit Provider Internal Medicine Medical Oncology
DX: Z51.11 Encounter for antineoplastic chemotherapy (principal); C20 Malignant neoplasm of rectum; C78.7 Secondary malignant neoplasm of liver and intrahepatic bile duct; C78.6 Secondary malignant neoplasm of retroperitoneum and peritoneum; R18.0 Malignant ascites; I10 Essential (primary) hypertension; K21.9 Gastro-esophageal reflux disease without esophagitis; Z79.899 Other long term (current) drug therapy
CPT/HCPCS: 36591; 80053; 81001; 82378; 85025; 96367; 96368; 96375; 96411; 96413; 96415; 96416; 96417; 96523; 99214; 99215; J0461; J0640; J1100; J2469; J9035; J9190; J9206

== ENCOUNTER 2021-10-07 06:36 | Outpatient (RCR) | payer MEDICARE, OTHER, SELFPAY ==
[2021-09-22 09:53] LABS: Basophils % 0.5 %; Eosinophils # 0.1 10^3/uL (0.0-0.8); Hemoglobin 14.1 g/dL (11.7-16.6); Lymphocytes # 1.1 10^3/uL (0.8-4.8); Lymphocytes % 27.8 %; Mean Corpuscular HGB Conc 33.6 g/dL (30.0-36.0); Mean Corpuscular Hemoglobin 30.8 pg (28.0-34.0); Mean Corpuscular Volume 91.7 fl (80-94); Mean Platelet Volume 9.3 fL (7.4-10.4); Monocytes # 0.4 10^3/uL (0.2-0.9); Monocytes % 10.4 %; Neutrophils # 2.29 10^3/uL (1.8-7.7); Nucleated Red Blood Cells % 0 %; Platelet Count 187 10^3/cmm (130-400); Red Blood Count 4.58 10^6/uL (4.1-5.3); Red Cell Distribution Width 14.2 % (12.1-15.1)
[2021-09-22 10:11] LABS: Alanine Aminotransferase 16 U/L (0-41); Albumin Level 3.9 g/dL (3.5-5.2); Alkaline Phosphatase 110 IU/L (40-130); Anion Gap 13.7 (5-19); Aspartate Amino Transferase 17 U/L (0-40); Blood Urea Nitrogen 11 mg/dL (8-23); Calcium 7.6 mg/dL (8.5-10.5); Carbon Dioxide 24 mmol/L (22-29); Chloride 105 mmol/L (98-107); Globulin 2.3 g/dL (1.3-4.6); Glomerular Filtration Rate 112.1 mL/min (90-130); Glucose 87 mg/dL (65-115); Osmolality Calculated 287 mOsm/kg (285-295); Potassium 3.7 mmol/L (3.5-5.1); Sodium 139 mmol/L (136-145); Total Protein 6.2 g/dL (6.6-8.7)
[2021-09-22] MEDS: palonosetron 0.25 mg/5 mL SDV IV (11:52)
[2021-09-22] MEDS: dextrose 5% 250 ML 75 ML IV (11:52)
--- NOTE | 2021-09-26 11:37 | ONC FU_ITS ---
[facility] Patient Note Patient: Mick Fritz Unit #: [id number]: [id number] Dictated By: Jose R YeungDate of Visit: Sep 22, 2021 Onc MED Follow-Up/Prog Note Chief Complaint: Rectal cancer. 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 In April 2019 he had been referred to Dr. Altamirano for excision of a skin lesion on his chest. He also was in need of screening colonoscopy. The skin lesion turned out to be a basal cell carcinoma. The colonoscopy showed a pedunculated polyp in the descending colon which was able to be removed endoscopically. Also noted was a malignant appearing mass involving two thirds of the circumference at the first rectal fold. 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 The rectal biopsy showed tubulovillous adenoma with focal high-grade dysplasia. As it was clearly a malignant appearing lesion, he then underwent sigmoidoscopy with a repeat biopsy on 05/15/2019. Pathology at that time was consistent with well to moderately differentiated adenocarcinoma. CT abdomen pelvis showed circumferential perirectal soft tissue thickening consistent with rectal neoplasm. Also noted was left perirectal lymphadenopathy and aortocaval lymphadenopathy consistent with metastatic disease with the largest aortocaval node measuring 2.0 cm and the left perirectal node measuring 2.2 cm. He was referred to Dr. Otto in [place] for further management, and he then undergo neoadjuvant chemoradiation utilizing capecitabine for chemosensitization. He apparently was lost to follow-up there after completing the radiation. He was admitted to [facility] on 10/29/2019 after presenting to the emergency room with abdominal pain and swelling. His CT abdomen/pelvis showed evidence of abundant ascites and omental carcinomatosis. There was abnormal wall thickening and enhancement of the loops of small bowel, possibly reflecting enteritis, but concerning for neoplastic infiltration of the wall of the loops of bowel. An apple core type lesion with marked wall thickening and narrowing was noted in the distal sigmoid colon/rectum. A new ill-defined 2 cm nodule in the dome of the liver was new and suspicious for metastatic disease. On 10/30/2019 he underwent paracentesis with removal of 2000 mL of fluid. The cytology was negative. Dr Edwards had seen him initially on 11/02/2019. At that point he was still in pretty good performance status. Biopsy was recommended to confirm the histology of his disease, particularly with the pattern of metastatic involvement and the fact that his CEA level was normal. As the liver lesion was not accessible for needle biopsy, he underwent CT directed needle biopsy of a peritoneal mass on 11/21/2019. Pathology has just become available, and it does show metastatic adenocarcinoma, CDX 2 positive, consistent with colonic primary. In the meantime, a next generation sequencing study had been requested on his primary tumor. It showed the tumor to be MSI stable and KRAS wild type. His other medical illnesses include hypertension and GERD. He has a remote history of smoking a pack of cigarettes daily for about 10 years. He had quit smoking cigarettes sometime in his early 20s, but he has continued smoking a cigar about 3 times a week. INTERIM HISTORY: On 11/29/2019 he began cycle 1 of palliative chemotherapy with modified FOLFOX in combination with panitumumab. At that point he had very poor oral intake and very marginal performance status. He required IV fluid support, but he was able to tolerate the treatment without significant acute toxicity. By day 5 he was neutropenic, but he recovered uneventfully with Neupogen. He began to show gradual improvement in his symptoms. He was then able to continue treatment at 2-week intervals with Neulasta administered prophylactically. He began his 6th cycle of treatment on 02/06/2020. At that point he was given a 1 level reduction in the oxaliplatin dosage and a 20% reduction in the 5-FU dosage due to thrombocytopenia. The panitumumab was put on hold due to worsening skin eruption. He continued with his cycle 7 treatment on 02/20/2020. He tolerated it well. With cycle 8, on 03/05/2020, Dr Edwards did restart the panitumumab at a reduced dosage of 4 mg/kg. Restaging CT of the abdomen/pelvis on 03/14/2020 showed evidence of interval response to therapy with resolution of previously described ascites and omental carcinomatosis. Also noted was resolution of the metastatic lesion in the dome of the liver. There was residual circumferential thickening involving the distal sigmoid colon and rectum. There was no evidence of disease progression. He continued with his 12th cycle of treatment on 04/30/2020. Beginning on 05/13/2020 it was opted to drop the chemotherapy and continue with panitumumab monotherapy. Restaging CT scans on 06/20/2020 showed residual thickening involving the distal sigmoid colon and rectum, stable compared to the March 2020 CT and the October 2019 PET/CT. A 2.5 cm hepatic cyst along the undersurface of the right hepatic lobe appeared stable. There was mild diffuse fatty infiltration of the liver. There was no evidence of metastatic disease in the chest, abdomen, or pelvis. Restaging CT scans on 11/21/2020 showed no evidence for metastatic disease in the chest, abdomen, or pelvis. There was stable mild residual thickening involving the distal sigmoid colon and rectum. With those findings, he continued treatment with panitumumab at 2-week intervals. At his follow-up visit on 04/15/2021 he was having some new abdominal pain. He continued his treatment, but he then had restaging CT scans of the chest, abdomen, and pelvis on 04/23/2021. There was mild circumferential wall thickening involving the rectosigmoid, consistent with treated neoplasm and with unchanged appearance from previous studies. There was no evidence of disease progression. He continued treatment with panitumumab. At his follow-up visit on 08/18/2021 he had multiple complaints which included increased abdominal pain and fatigue as well as significant worsening of his skin eruption. I did opt to put his treatment on hold, and he was given empiric treatment with prednisone and doxycycline. Restaging PET/CT on 08/22/2021 showed improvement in the omental implants and resolution of ascites compared to the study from October 2019. There did appear to be progression of hepatic metastatic disease and was also noted to be a new left periaortic retroperitoneal lymph node measuring 2.5 cm with SUV 4.3, consistent with malignancy/progression. New rectal wall activity was felt to be likely physiologic, but recurrence was not excluded, SUV 8.7. Mr Fritz is here today for followup. At his last visit, his skin eruption has improved significantly. He states it is now trying to come back. It is noted that he does have some rash on his head and neck. It is starting to itch once again. He still has intermittent abdominal pain, but it is unchanged from his last visit. His appetite is good. He has pretty good energy now. He remains very active. He states that he put up a condensation machine at his residence the last few days which required a lot of heavy lifting and maneuvering. He states he tolerated this well. He is planning on doing some hunting with the coming up. He denies fever or night sweats. He has had no mouth sores. He denies shortness of breath, cough, or chest pain. He states he is not having any nausea. His acid reflux is adequately managed with medication. Bowel and bladdr function has been normal for me . He has no significant joint or bone pain. He does not complain of headache or dizziness. He has residual numbness in his arms/hands, right worse than left. His ECOG is 0. Past Medical History: Gastroesophageal reflux disease Hypertension Rectal cancer Past Surgical History: Liver biopsy Tonsillectomy Flu vaccine in 2019 - left deltoid Left side porthacatheter placement dr. altamirano in 2019 Sigmoidoscopy with biopsy of rectal mass in 2019 Colonoscopy in 2019 Excision of basal cell skin cancer in 2019 Allergies: No Known Allergies. Medications: PriLOSEC OTC 1 Tablet (of 20 mg) Tablet, enteric coated Oral daily Family History: Mr. Fritz's mother is alive. Mr. Fritz's father at age 92: heart disease, and type II diabetes. Mr. Fritz has 1 brother who is alive. He has 1 sister who is alive. Mother still living at age 89. Father with heart disease at age 92. He also had diabetes. A maternal aunt had breast cancer. His maternal grandfather had lung cancer. Social History: Mr. 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 Mr. Fritz quit smoking 47 years ago but had smoked 1.0 pack/day for 12 years. He quit drinking less than one year ago. He has indicated exposure to the following products: cigars. Mr. Fritz reports the following support systems: lives with spouse, significant other, family, or friends and adequate transportation available for expected visits. His diet consists of regular meals. He indicates his activity level as: light exercise. 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 He has a history of smoking 1 pack of cigarettes daily for 10 years, but he had quit by sometime in his early 20s. He smokes a cigar about 3 times a week. Alcohol use averages 2 beers 3 days a week. Review Of Symptoms: <See Above> Vital Signs: Performed on Sep 22, 2021 11:19 Height - 70.00 in Weight - 185.6 lbs (LOW) BSA - 2.02 sq.m BMI - 26.63 Temperature - 98.4 F Pulse - 70 /min Respiration - 18 /min BP - 136/86 mm(hg) O2 Sat - 99 % Pain - 0 Fatigue - 5,0 - Fully active, able to carry on all predisease activities without restrictions. (ECOG) Physical Examination: Constitutional Alert, oriented, no acute distress. Skin pink, warm and dry. Head Normocephalic; atraumatic. Eyes Conjunctivae and sclerae are clear and without icterus. Pupils are reactive and equal. ENMT No oral exudates, ulcers, masses, thrush or mucositis. Oropharynx clear. Tongue normal. Neck Supple without masses or thyromegaly. No jugular venous distension. Hematologic/Lymphatic No petechiae or purpura. No tender or palpable lymph nodes in the cervical or supraclavicular areas. Respiratory Lungs are clear to auscultation without rhonchi or wheezing. Cardiovascular Regular rate and rhythm of heart without murmurs,clicks, gallops or rubs. Chest scattered red maculopapular rash on anterior neck. Mild without pustules at present. Abdomen Non-tender, non-distended, no masses or ascites. No guarding or rebound tenderness. No pulsatile masses. Back/Spine Non-tender to palpation. Extremities No visible deformities, no cyanosis, clubbing or edema. Musculoskeletal No tenderness or swelling, normal range of motion without obvious weakness. Integumentary He has skin fissures on his thumbs bilaterally and around multiple nailbeds have healed. There is no peeling or skin peeling. Neurologic No sensory or motor deficits, normal cerebellar function, normal gait. Psychiatric Alert and oriented times three. Coherent speech. Verbalizes understanding of our discussions today. Laboratory:Test performed on Sep 22, 2021 09:45 Sodium 139 mmol/L Potassium 3.7 mmol/L Chloride 105 mmol/L CO2 24 mmol/L Anion Gap 13.7 BUN 11 mg/dL Creatinine 0.7 mg/dL Cr Clearance (Est) 120.4000 mL/min eGFR 112.1 mL/min Glucose 87 mg/dL Osmolality - Calculated 287 mOsm/kg Calcium 7.6 mg/dL Protein, Total 6.2 g/dL Albumin 3.9 g/dL Globulin 2.3 g/dL Bilirubin, Total 1.0 mg/dL ALT (SGPT) 16 U/L AST (SGOT) 17 U/L Alkaline Phosphatase 110 IU/L WBC 4.0 10 3/uL RBC 4.58 10 6/uL HGB 14.1 g/dL HCT 42.0 % MCV 91.7 fl MCH 30.8 pg MCHC 33.6 g/dL RDW 14.2 % Platelet Count 187 10 3/cmm MPV 9.3 fL Neutrophils 2.29 10 3/uL Lymphocytes 1.1 10 3/uL Monocytes 0.4 10 3/uL Eosinophils 0.1 10 3/uL Basophils 0.0 10 3/uL Neutrophil % 58.0 % Lymphocyte % 27.8 % Monocyte % 10.4 % Eosinophil % 3.0 % Basophils % 0.5 % NRBC % 0 % Test performed on Sep 09, 2021 09:50 Ua Color Yellow Ua Appearance Clear Ua Glucose Norm Ua Bilirubin Neg Ua Ketones Negative Ua Specific [place] 1.025 Ua Blood Trace Ua pH 5 Ua Protein Neg Ua Urobilinogen 1 mg/dL Ua Nitrites Negative Ua Leukocyte Esterase Negative Ua Micro: WBC RARE /hpf Ua Micro: RBC NONE /hpf Ua Micro: Squam Epith Cells RARE /hpf Ua Micro: Bacteria TRACE /hpf Ua Micro: Mucous 2+ /hpf Test performed on Aug 18, 2021 09:35 CEA 2.1 ng/mL Test performed on Apr 15, 2021 09:34 TSH 1.97 uIU/mL Impression: 1. Well to moderately differentiated adenocarcinoma of the rectum. He underwent chemoradiation utilizing capecitabine for chemosensitization following initial diagnosis of the rectal cancer in May 2019. 2. He had subsequent disease progression to stage IVC (T3, N2, M1c) with CT evidence of metastatic involvement in the peritoneum and liver. He had associated ascites. CT-directed needle biopsy of a right peritoneal mass on 11/21/2019 confirmed adenocarcinoma consistent with colorectal primary. The tumor was confirmed to be MSI stable and KRAS wild-type. 3. Hypertension. 4. GERD. Plan/Problems Addressed at this Visit: Patient with well to moderately differentiated adenocarcinoma of the rectum. He had undergone chemoradiation utilizing capecitabine for chemosensitization following initial diagnosis of the rectal cancer in May 2019. He had subsequent disease progression to stage IVC (T3, N2, M1c) with CT evidence of metastatic involvement in the peritoneum and liver. CT-directed needle biopsy of a right peritoneal mass on 11/21/2019 confirmed adenocarcinoma consistent with colorectal primary. The tumor was confirmed to be MSI stable and KRAS wild-type. In November 2019 began palliative chemotherapy with modified FOLFOX in combination with panitumumab. During treatment he required dose reductions in the chemotherapy due to neuropathy and thrombocytopenia, and he required treatment interruption and subsequent dose reduction in the panitumumab due to severe skin eruption. However, he had a very good clinical response to the treatment. As of April 2020, following completion of 12 cycles of chemotherapy, his treatment was transitioned to panitumumab monotherapy, initially at a dosage of 4 mg/kg by IV infusion every 2 weeks. As of January 2021 the dosage was increased back to 6 mg/kg. At his follow-up visit on 08/18/2021 he reported worsening fatigue and abdominal pain as well as significant worsening of his skin eruption. His treatment was put on hold. Restaging PET/CT on 08/22/2021 showed evidence of progression of hepatic metastatic disease and new involvement in the left periaortic retroperitoneal lymph node. Rectal wall activity was thought to be physiologic, but it did have significant SUV at 8.7, more likely indicative of active primary malignancy. The PET/CT findings were reviewed with the patient as were the clinic complications per Dr Edwards. It appears likely that he has achieved maximum benefit with the EGFR inhibitor, and Dr Edwards did recommend that he proceed to second line treatment with a FOLFIRI chemotherapy regimen in combination with Avastin. He began his first cycle of FOLFIRI/Avastin on 09/09/2021. 1. Proceed with cycle 2 FOLFIRI/Avastin at same dosing. 2. Today's labs reviewed in detail discussed with Mr. Fritz and a copy was given to him. WBC 4.0, hemoglobin 14.1, platelets 187,000, neutrophils 2290. Potassium 3.7 creatinine 0.7 random glucose was 87 LFTs are normal. His last CEA was on August 18, 2021 and reported at 2.1. UA from 09/09/2021 reported trace proteinuria. 3. We will plan to see him back in 2 weeks with CBC CMP as well as UA for follow-up of the trace proteinuria on 09/09/2021. 4. Mr. Fritz was instructed to contact us in the interim should questions or problems arise. 5. He will refill his mometasone furoate 0.1% topical ointment for the rash. 6. He continues on prednisone 10 mg daily. 7. Hydrocodone refill per Dr. Edwards's written authorization. Signed By: Jose R Yeung-, [facility] Tiago Edwadrs MD<<Signature on File>>
[2021-10-05 08:37] LABS: Add Urine Microscopic? NO; Charge for UA Resulting for Rev
[2021-10-05 08:49] LABS: Basophils % 0.7 %; Eosinophils % 0.9 %; Hematocrit 35.8 % (42.0-52.0); Hemoglobin 12.6 g/dL (11.7-16.6); Lymphocytes # 0.6 10^3/uL (0.8-4.8); Lymphocytes % 13.7 %; Mean Corpuscular HGB Conc 35.2 g/dL (30.0-36.0); Mean Corpuscular Hemoglobin 31.7 pg (28.0-34.0); Mean Corpuscular Volume 89.9 fl (80-94); Mean Platelet Volume 10.2 fL (7.4-10.4); Monocytes # 0.5 10^3/uL (0.2-0.9); Monocytes % 11.5 %; Neutrophils # 3.29 10^3/uL (1.8-7.7); Nucleated Red Blood Cells % 0 %; Platelet Count 166 10^3/cmm (130-400); Red Blood Count 3.98 10^6/uL (4.1-5.3); Red Cell Distribution Width 14.7 % (12.1-15.1); White Blood Count 4.5 10^3/uL (4.0-10.0)
[2021-10-05 09:11] LABS: Alanine Aminotransferase 13 U/L (0-41); Albumin Level 3.7 g/dL (3.5-5.2); Alkaline Phosphatase 100 IU/L (40-130); Anion Gap 15.1 (5-19); Aspartate Amino Transferase 17 U/L (0-40); Blood Urea Nitrogen 12 mg/dL (8-23); Calcium 8.2 mg/dL (8.5-10.5); Carbon Dioxide 24 mmol/L (22-29); Chloride 105 mmol/L (98-107); Globulin 2.3 g/dL (1.3-4.6); Glomerular Filtration Rate 96.1 mL/min (90-130); Glucose 88 mg/dL (65-115); Osmolality Calculated 289 mOsm/kg (285-295); Potassium 4.1 mmol/L (3.5-5.1); Sodium 140 mmol/L (136-145); Total Bilirubin 0.7 mg/dL (0.15-1.2)
[2021-10-05 09:11] LABS: Urine Appearance Clear (CLEAR); Urine Color Yellow (Yellow); pH Urine 7 (5-7)
[2021-10-05 09:12] LABS: Bilirubin Urine Neg (Negative); Blood Urine Neg (Negative); Glucose Urine UA Norm (Normal); Ketones Urine Negative (Negative); Leukocyte Esterase Urine Negative (Negative); Nitrate Urine Negative (Negative); Protein Urine Neg (Negative); Urobilinogen Urine 1 mg/dL (Negative)
[2021-10-05] MEDS: dextrose 5% 250 ML 75 ML IV (10:46)
[2021-10-05] MEDS: palonosetron 0.25 mg/5 mL SDV IV (10:46)
--- NOTE | 2021-10-06 07:27 | ONC FU_ITS ---
Dr. Edwards Patient Follow-Up Note Patient: Mick Fritz Unit #: [id number]: 1955 Dicatated By: Tiago Edwards M.D.Date of Visit:Oct 05, 2021 Onc Med Follow-up/Prog Note Chief Complaint: Rectal cancer. 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 In April 2019 he had been referred to Dr. Altamirano for excision of a skin lesion on his chest. He also was in need of screening colonoscopy. The skin lesion turned out to be a basal cell carcinoma. The colonoscopy showed a pedunculated polyp in the descending colon which was able to be removed endoscopically. Also noted was a malignant appearing mass involving two thirds of the circumference at the first rectal fold. 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 The rectal biopsy showed tubulovillous adenoma with focal high-grade dysplasia. As it was clearly a malignant appearing lesion, he then underwent sigmoidoscopy with a repeat biopsy on 05/15/2019. Pathology at that time was consistent with well to moderately differentiated adenocarcinoma. CT abdomen pelvis showed circumferential perirectal soft tissue thickening consistent with rectal neoplasm. Also noted was left perirectal lymphadenopathy and aortocaval lymphadenopathy consistent with metastatic disease with the largest aortocaval node measuring 2.0 cm and the left perirectal node measuring 2.2 cm. He was referred to Dr. Otto in [place] for further management, and he then undergo neoadjuvant chemoradiation utilizing capecitabine for chemosensitization. He apparently was lost to follow-up there after completing the radiation. He was admitted to [facility] on 10/29/2019 after presenting to the emergency room with abdominal pain and swelling. His CT abdomen/pelvis showed evidence of abundant ascites and omental carcinomatosis. There was abnormal wall thickening and enhancement of the loops of small bowel, possibly reflecting enteritis, but concerning for neoplastic infiltration of the wall of the loops of bowel. An apple core type lesion with marked wall thickening and narrowing was noted in the distal sigmoid colon/rectum. A new ill-defined 2 cm nodule in the dome of the liver was new and suspicious for metastatic disease. On 10/30/2019 he underwent paracentesis with removal of 2000 mL of fluid. The cytology was negative. I had seen him initially on 11/02/2019. At that point he was still in pretty good performance status. Biopsy was recommended to confirm the histology of his disease, particularly with the pattern of metastatic involvement and the fact that his CEA level was normal. As the liver lesion was not accessible for needle biopsy, he underwent CT directed needle biopsy of a peritoneal mass on 11/21/2019. Pathology has just become available, and it does show metastatic adenocarcinoma, CDX 2 positive, consistent with colonic primary. In the meantime, a next generation sequencing study had been requested on his primary tumor. It showed the tumor to be MSI stable and KRAS wild type. On 11/29/2019 he began cycle 1 of palliative chemotherapy with modified FOLFOX in combination with panitumumab. At that point he had very poor oral intake and very marginal performance status. He required IV fluid support, but he was able to tolerate the treatment without significant acute toxicity. By day 5 he was neutropenic, but he recovered uneventfully with Neupogen. He began to show gradual improvement in his symptoms. He was then able to continue treatment at 2-week intervals with Neulasta administered prophylactically. He began his 6th cycle of treatment on 02/06/2020. At that point he was given a 1 level reduction in the oxaliplatin dosage and a 20% reduction in the 5-FU dosage due to thrombocytopenia. The panitumumab was put on hold due to worsening skin eruption. He continued with his cycle 7 treatment on 02/20/2020. He tolerated it well. With cycle 8, on 03/05/2020, I did restart the panitumumab at a reduced dosage of 4 mg/kg. Restaging CT of the abdomen/pelvis on 03/14/2020 showed evidence of interval response to therapy with resolution of previously described ascites and omental carcinomatosis. Also noted was resolution of the metastatic lesion in the dome of the liver. There was residual circumferential thickening involving the distal sigmoid colon and rectum. There was no evidence of disease progression. He continued with his 12th cycle of treatment on 04/30/2020. Beginning on 05/13/2020 I opted to drop the chemotherapy and continue with panitumumab monotherapy. Restaging CT scans on 06/20/2020 showed residual thickening involving the distal sigmoid colon and rectum, stable compared to the March 2020 CT and the October 2019 PET/CT. A 2.5 cm hepatic cyst along the undersurface of the right hepatic lobe appeared stable. There was mild diffuse fatty infiltration of the liver. There was no evidence of metastatic disease in the chest, abdomen, or pelvis. Restaging CT scans on 11/21/2020 showed no evidence for metastatic disease in the chest, abdomen, or pelvis. There was stable mild residual thickening involving the distal sigmoid colon and rectum. With those findings, he continued treatment with panitumumab at 2-week intervals. At his follow-up visit on 04/15/2021 he was having some new abdominal pain. He continued his treatment, but he then had restaging CT scans of the chest, abdomen, and pelvis on 04/23/2021. There was mild circumferential wall thickening involving the rectosigmoid, consistent with treated neoplasm and with unchanged appearance from previous studies. There was no evidence of disease progression. He continued treatment with panitumumab. At his follow-up visit on 08/18/2021 he had multiple complaints which included increased abdominal pain and fatigue as well as significant worsening of his skin eruption. I did opt to put his treatment on hold, and he was given empiric treatment with prednisone and doxycycline. Restaging PET/CT on 08/22/2021 showed improvement in the omental implants and resolution of ascites compared to the study from October 2019. There did appear to be progression of hepatic metastatic disease and was also noted to be a new left periaortic retroperitoneal lymph node measuring 2.5 cm with SUV 4.3, consistent with malignancy/progression. New rectal wall activity was felt to be likely physiologic, but recurrence was not excluded, SUV 8.7. With those findings, he was recommended to change treatment to FOLFIRI chemotherapy in combination with Avastin. His other medical illnesses include hypertension and GERD. He has a remote history of smoking a pack of cigarettes daily for about 10 years. He had quit smoking cigarettes sometime in his early 20s, but he has continued smoking a cigar about 3 times a week. INTERIM HISTORY: He began cycle 1 of FOLFIRI/Avastin on 09/09/2021. He tolerated that treatment well, and he continued with cycle 2 on 09/22/2021. He is seen for a follow-up visit. He has been feeling good generally. He has experienced some hair loss since he started the chemotherapy, particularly in the mustache area. Last week he was still having some discomfort in the lower abdominal area, though he was getting relief with bowel movement. His bowel movements at times are very frequent, though he says it is not diarrhea. Is also not aware of having blood in the stool. He has good energy and activity tolerance. ECOG score is 0. Appetite is good. He has gained weight. He does not have fever or night sweats. He had some soreness in his mouth, but that resolved. He has not had sore throat or cough. He does not complain of shortness of breath or chest pain. He has not been having any nausea. He has frequent urination with urgency. His joints are a little sore, but no worse. He does not complain of headache or dizziness. He has numbness occasionally in his right hand, that has been going on for years. He has no other neuropathy symptoms. Medications: PriLOSEC OTC 1 Tablet (of 20 mg) Tablet, enteric coated Oral daily Allergies: No Known Allergies. Vital Signs: Performed on Oct 05, 2021 11:46 Height - 70.00 in Weight - 192.2 lbs (HIGH) BSA - 2.05 sq.m BMI - 27.58 Temperature - 97.8 F (LOW) Pulse - 61 /min Respiration - 16 /min BP - 152./80 mm(hg) (HIGH) O2 Sat - 98 % Pain - 0 Fatigue - 0 Physical Examination: Constitutional - He looks pretty good generally. He has mild alopecia, Eyes - Sclerae nonicteric. Conjunctivae clear, ENMT - No lesions noted in the oral cavity, Hematologic/Lymphatic - No cervical, clavicular, or axillary adenopathy, Respiratory - Lungs sound clear, Cardiovascular - Heart rhythm is regular. There is no murmur, gallop, or rub noted, Abdomen - Soft. Liver and spleen are not enlarged. There is no abdominal mass or ascites noted. There is no inguinal adenopathy, Extremities - No edema, Neurologic - No focal neurologic deficits noted. Lab/Imaging: Test performed on Oct 05, 2021 08:26 Sodium 140 mmol/L Potassium 4.1 mmol/L Chloride 105 mmol/L CO2 24 mmol/L Anion Gap 15.1 BUN 12 mg/dL Creatinine 0.8 mg/dL Cr Clearance (Est) 105.3500 mL/min eGFR 96.1 mL/min Glucose 88 mg/dL Osmolality - Calculated 289 mOsm/kg Calcium 8.2 mg/dL Protein, Total 6.0 g/dL Albumin 3.7 g/dL Globulin 2.3 g/dL Bilirubin, Total 0.7 mg/dL ALT (SGPT) 13 U/L AST (SGOT) 17 U/L Alkaline Phosphatase 100 IU/L WBC 4.5 10 3/uL RBC 3.98 10 6/uL HGB 12.6 g/dL HCT 35.8 % MCV 89.9 fl MCH 31.7 pg MCHC 35.2 g/dL RDW 14.7 % Platelet Count 166 10 3/cmm MPV 10.2 fL Neutrophils 3.29 10 3/uL Lymphocytes 0.6 10 3/uL Monocytes 0.5 10 3/uL Eosinophils 0.0 10 3/uL Basophils 0.0 10 3/uL Neutrophil % 73.0 % Lymphocyte % 13.7 % Monocyte % 11.5 % Eosinophil % 0.9 % Basophils % 0.7 % NRBC % 0 % Problem List: 1. Well to moderately differentiated adenocarcinoma of the rectum. He underwent chemoradiation utilizing capecitabine for chemosensitization following initial diagnosis of the rectal cancer in May 2019. 2. He had subsequent disease progression to stage IVC (T3, N2, M1c) with CT evidence of metastatic involvement in the peritoneum and liver. He had associated ascites. CT-directed needle biopsy of a right peritoneal mass on 11/21/2019 confirmed adenocarcinoma consistent with colorectal primary. The tumor was confirmed to be MSI stable and KRAS wild-type. 3. Hypertension. 4. GERD. Problems Addressed with this Encounter and Plan: Patient with well to moderately differentiated adenocarcinoma of the rectum. He had undergone chemoradiation utilizing capecitabine for chemosensitization following initial diagnosis of the rectal cancer in May 2019. He had subsequent disease progression to stage IVC (T3, N2, M1c) with CT evidence of metastatic involvement in the peritoneum and liver. CT-directed needle biopsy of a right peritoneal mass on 11/21/2019 confirmed adenocarcinoma consistent with colorectal primary. The tumor was confirmed to be MSI stable and KRAS wild-type. In November 2019 began palliative chemotherapy with modified FOLFOX in combination with panitumumab. During treatment he required dose reductions in the chemotherapy due to neuropathy and thrombocytopenia, and he required treatment interruption and subsequent dose reduction in the panitumumab due to severe skin eruption. However, he had a very good clinical response to the treatment. As of April 2020, following completion of 12 cycles of chemotherapy, his treatment was transitioned to panitumumab monotherapy, initially at a dosage of 4 mg/kg by IV infusion every 2 weeks. As of January 2021 the dosage was increased back to 6 mg/kg. At his follow-up visit on 08/18/2021 he reported worsening fatigue and abdominal pain as well as significant worsening of his skin eruption. His treatment was put on hold. Restaging PET/CT on 08/22/2021 showed evidence of progression of hepatic metastatic disease and new involvement in the left periaortic retroperitoneal lymph node. Rectal wall activity was thought to be physiologic, but it did have significant SUV at 8.7, more likely indicative of active primary malignancy. Given those findings, he was recommended to change treatment to FOLFIRI chemotherapy in combination with Avastin. He began cycle 1 of FOLFIRI/Avastin on 09/09/2021. He has now completed 2 cycles. He appears to be tolerating the treatment very well, though he continues to have some lower abdominal discomfort. He also reports having frequent bowel movements, though he says it is not diarrhea. At this point he will proceed with cycle 3 of FOLFIRI/Avastin. The dosages remain the same. He returns in 2 weeks. Signed By: Tiago Edwards M.D. <<Signature on File>>
== END 2021-10-13 23:59 | disposition home or self-care (01) ==
LOC: ONCMED 06:36
PROVIDERS: Nurse Practitioner; PCP Family Medicine; Visit Provider Internal Medicine Medical Oncology
DX: Z51.11 Encounter for antineoplastic chemotherapy (principal); C20 Malignant neoplasm of rectum; C78.7 Secondary malignant neoplasm of liver and intrahepatic bile duct; C78.6 Secondary malignant neoplasm of retroperitoneum and peritoneum; R18.0 Malignant ascites; I10 Essential (primary) hypertension; K21.9 Gastro-esophageal reflux disease without esophagitis; Z79.899 Other long term (current) drug therapy; Z92.21 Personal history of antineoplastic chemotherapy; Z92.3 Personal history of irradiation
CPT/HCPCS: 80053; 81003; 85025; 96367; 96368; 96375; 96411; 96413; 96415; 96416; 96417; 96523; 99215; J0461; J0640; J1100; J2469; J9035; J9190; J9206

== ENCOUNTER 2021-11-05 06:27 | Outpatient (RCR) | payer MEDICARE, OTHER, SELFPAY ==
[2021-10-21 08:33] LABS: Basophils % 0.6 %; Eosinophils # 0.1 10^3/uL (0.0-0.8); Eosinophils % 1.5 %; Hematocrit 39.8 % (42.0-52.0); Hemoglobin 13.5 g/dL (11.7-16.6); Lymphocytes # 0.7 10^3/uL (0.8-4.8); Lymphocytes % 22.7 %; Mean Corpuscular HGB Conc 33.9 g/dL (30.0-36.0); Mean Corpuscular Hemoglobin 31.6 pg (28.0-34.0); Mean Corpuscular Volume 93.2 fl (80-94); Mean Platelet Volume 10.1 fL (7.4-10.4); Monocytes # 0.6 10^3/uL (0.2-0.9); Monocytes % 17.2 %; Neutrophils # 1.86 10^3/uL (1.8-7.7); Neutrophils % 57.1 %; Nucleated Red Blood Cells % 0 %; Platelet Count 184 10^3/cmm (130-400); Red Blood Count 4.27 10^6/uL (4.1-5.3); Red Cell Distribution Width 15.6 % (12.1-15.1); White Blood Count 3.3 10^3/uL (4.0-10.0)
[2021-10-21 08:57] LABS: Alanine Aminotransferase 16 U/L (0-41); Albumin Level 4.1 g/dL (3.5-5.2); Alkaline Phosphatase 92 IU/L (40-130); Anion Gap 16.1 (5-19); Aspartate Amino Transferase 15 U/L (0-40); Blood Urea Nitrogen 9 mg/dL (8-23); Calcium 8.2 mg/dL (8.5-10.5); Carbon Dioxide 21 mmol/L (22-29); Chloride 107 mmol/L (98-107); Globulin 1.9 g/dL (1.3-4.6); Glomerular Filtration Rate 83.9 mL/min (90-130); Glucose 107 mg/dL (65-115); Osmolality Calculated 289 mOsm/kg (285-295); Potassium 4.1 mmol/L (3.5-5.1); Sodium 140 mmol/L (136-145); Total Bilirubin 0.8 mg/dL (0.15-1.2)
[2021-10-21] MEDS: palonosetron 0.25 mg/5 mL SDV IV (10:15)
[2021-10-21] MEDS: dextrose 5% 250 ML 75 ML IV (10:20)
--- NOTE | 2021-10-21 15:58 | ONC FU_ITS ---
Dr. Edwards Patient Follow-Up Note Patient: Mick Fritz Unit #: [id number]: [id number] Dicatated By: Tiago Edwards M.D.Date of Visit:Oct 21, 2021 Onc Med Follow-up/Prog Note Chief Complaint: Rectal cancer. 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 In April 2019 he had been referred to Dr. Altamirano for excision of a skin lesion on his chest. He also was in need of screening colonoscopy. The skin lesion turned out to be a basal cell carcinoma. The colonoscopy showed a pedunculated polyp in the descending colon which was able to be removed endoscopically. Also noted was a malignant appearing mass involving two thirds of the circumference at the first rectal fold. 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 The rectal biopsy showed tubulovillous adenoma with focal high-grade dysplasia. As it was clearly a malignant appearing lesion, he then underwent sigmoidoscopy with a repeat biopsy on 05/15/2019. Pathology at that time was consistent with well to moderately differentiated adenocarcinoma. CT abdomen pelvis showed circumferential perirectal soft tissue thickening consistent with rectal neoplasm. Also noted was left perirectal lymphadenopathy and aortocaval lymphadenopathy consistent with metastatic disease with the largest aortocaval node measuring 2.0 cm and the left perirectal node measuring 2.2 cm. He was referred to Dr. Otto in [place] for further management, and he then undergo neoadjuvant chemoradiation utilizing capecitabine for chemosensitization. He apparently was lost to follow-up there after completing the radiation. He was admitted to [facility] on 10/29/2019 after presenting to the emergency room with abdominal pain and swelling. His CT abdomen/pelvis showed evidence of abundant ascites and omental carcinomatosis. There was abnormal wall thickening and enhancement of the loops of small bowel, possibly reflecting enteritis, but concerning for neoplastic infiltration of the wall of the loops of bowel. An apple core type lesion with marked wall thickening and narrowing was noted in the distal sigmoid colon/rectum. A new ill-defined 2 cm nodule in the dome of the liver was new and suspicious for metastatic disease. On 10/30/2019 he underwent paracentesis with removal of 2000 mL of fluid. The cytology was negative. I had seen him initially on 11/02/2019. At that point he was still in pretty good performance status. Biopsy was recommended to confirm the histology of his disease, particularly with the pattern of metastatic involvement and the fact that his CEA level was normal. As the liver lesion was not accessible for needle biopsy, he underwent CT directed needle biopsy of a peritoneal mass on 11/21/2019. Pathology has just become available, and it does show metastatic adenocarcinoma, CDX 2 positive, consistent with colonic primary. In the meantime, a next generation sequencing study had been requested on his primary tumor. It showed the tumor to be MSI stable and KRAS wild type. On 11/29/2019 he began cycle 1 of palliative chemotherapy with modified FOLFOX in combination with panitumumab. At that point he had very poor oral intake and very marginal performance status. He required IV fluid support, but he was able to tolerate the treatment without significant acute toxicity. By day 5 he was neutropenic, but he recovered uneventfully with Neupogen. He began to show gradual improvement in his symptoms. He was then able to continue treatment at 2-week intervals with Neulasta administered prophylactically. He began his 6th cycle of treatment on 02/06/2020. At that point he was given a 1 level reduction in the oxaliplatin dosage and a 20% reduction in the 5-FU dosage due to thrombocytopenia. The panitumumab was put on hold due to worsening skin eruption. He continued with his cycle 7 treatment on 02/20/2020. He tolerated it well. With cycle 8, on 03/05/2020, I did restart the panitumumab at a reduced dosage of 4 mg/kg. Restaging CT of the abdomen/pelvis on 03/14/2020 showed evidence of interval response to therapy with resolution of previously described ascites and omental carcinomatosis. Also noted was resolution of the metastatic lesion in the dome of the liver. There was residual circumferential thickening involving the distal sigmoid colon and rectum. There was no evidence of disease progression. He continued with his 12th cycle of treatment on 04/30/2020. Beginning on 05/13/2020 I opted to drop the chemotherapy and continue with panitumumab monotherapy. Restaging CT scans on 06/20/2020 showed residual thickening involving the distal sigmoid colon and rectum, stable compared to the March 2020 CT and the October 2019 PET/CT. A 2.5 cm hepatic cyst along the undersurface of the right hepatic lobe appeared stable. There was mild diffuse fatty infiltration of the liver. There was no evidence of metastatic disease in the chest, abdomen, or pelvis. Restaging CT scans on 11/21/2020 showed no evidence for metastatic disease in the chest, abdomen, or pelvis. There was stable mild residual thickening involving the distal sigmoid colon and rectum. With those findings, he continued treatment with panitumumab at 2-week intervals. At his follow-up visit on 04/15/2021 he was having some new abdominal pain. He continued his treatment, but he then had restaging CT scans of the chest, abdomen, and pelvis on 04/23/2021. There was mild circumferential wall thickening involving the rectosigmoid, consistent with treated neoplasm and with unchanged appearance from previous studies. There was no evidence of disease progression. He continued treatment with panitumumab. At his follow-up visit on 08/18/2021 he had multiple complaints which included increased abdominal pain and fatigue as well as significant worsening of his skin eruption. I did opt to put his treatment on hold, and he was given empiric treatment with prednisone and doxycycline. Restaging PET/CT on 08/22/2021 showed improvement in the omental implants and resolution of ascites compared to the study from October 2019. There did appear to be progression of hepatic metastatic disease and was also noted to be a new left periaortic retroperitoneal lymph node measuring 2.5 cm with SUV 4.3, consistent with malignancy/progression. New rectal wall activity was felt to be likely physiologic, but recurrence was not excluded, SUV 8.7. With those findings, he was recommended to change treatment to FOLFIRI chemotherapy in combination with Avastin. His other medical illnesses include hypertension and GERD. He has a remote history of smoking a pack of cigarettes daily for about 10 years. He had quit smoking cigarettes sometime in his early 20s, but he has continued smoking a cigar about 3 times a week. INTERIM HISTORY: He began cycle 1 of FOLFIRI/Avastin on 09/09/2021. He tolerated that treatment well. He then continued with cycle 2 on 09/22/2021 and with cycle 3 on 10/05/2021. He is seen for a follow-up visit. He has been feeling good generally. He says that he has had no further abdominal pain since his last visit. He still has frequent bowel movements, typically at least for a day, but it is not diarrhea. He has good energy and activity tolerance. ECOG score is 0. Appetite also is good. He is gaining weight. He does not have fever or night sweats. He complains of having dry mouth, but he has had no mouth sores. He has a little bit of cough. He does not complain of shortness of breath or chest pain. He has not been having nausea. He has acid reflux if he goes off his medication. He has some urgency with urination. He has had some pain in his left shoulder. He has no other joint or bone pain. He does not complain of headache or dizziness. His neuropathy symptoms have improved. Medications: predniSONE 1 Tablet (of 5 mg) Oral daily, PriLOSEC OTC 1 Tablet (of 20 mg) Tablet, enteric coated Oral daily Allergies: No Known Allergies. Vital Signs: Performed on Oct 21, 2021 09:47 Height - 70.00 in Weight - 191.6 lbs (LOW) BSA - 2.05 sq.m BMI - 27.49 Temperature - 97.5 F (LOW) Pulse - 72 /min Respiration - 16 /min BP - 167/91 mm(hg) (HIGH) O2 Sat - 98 % Pain - 0 Fatigue - 0 Physical Examination: Constitutional - He looks pretty good generally, Eyes - Sclerae nonicteric. Conjunctivae clear, ENMT - No lesions noted in the oral cavity, Hematologic/Lymphatic - No cervical, clavicular, or axillary adenopathy, Respiratory - Lungs sound clear, Cardiovascular - Heart rhythm is regular. There is no murmur, gallop, or rub noted, Abdomen - Soft. Liver and spleen are not enlarged. There is no abdominal mass or ascites noted. There is no inguinal adenopathy, Extremities - No edema, Integumentary - There is still some mild fissuring in both hands, Neurologic - No focal neurologic deficits noted. Lab/Imaging: Test performed on Oct 21, 2021 08:20 Sodium 140 mmol/L Potassium 4.1 mmol/L Chloride 107 mmol/L CO2 21 mmol/L Anion Gap 16.1 BUN 9 mg/dL Creatinine 0.9 mg/dL Cr Clearance (Est) 93.6400 mL/min eGFR 83.9 mL/min Glucose 107 mg/dL Osmolality - Calculated 289 mOsm/kg Calcium 8.2 mg/dL Protein, Total 6.0 g/dL Albumin 4.1 g/dL Globulin 1.9 g/dL Bilirubin, Total 0.8 mg/dL ALT (SGPT) 16 U/L AST (SGOT) 15 U/L Alkaline Phosphatase 92 IU/L WBC 3.3 10 3/uL RBC 4.27 10 6/uL HGB 13.5 g/dL HCT 39.8 % MCV 93.2 fl MCH 31.6 pg MCHC 33.9 g/dL RDW 15.6 % Platelet Count 184 10 3/cmm MPV 10.1 fL Neutrophils 1.86 10 3/uL Lymphocytes 0.7 10 3/uL Monocytes 0.6 10 3/uL Eosinophils 0.1 10 3/uL Basophils 0.0 10 3/uL Neutrophil % 57.1 % Lymphocyte % 22.7 % Monocyte % 17.2 % Eosinophil % 1.5 % Basophils % 0.6 % NRBC % 0 % Problem List: 1. Well to moderately differentiated adenocarcinoma of the rectum. He underwent chemoradiation utilizing capecitabine for chemosensitization following initial diagnosis of the rectal cancer in May 2019. 2. He had subsequent disease progression to stage IVC (T3, N2, M1c) with CT evidence of metastatic involvement in the peritoneum and liver. He had associated ascites. CT-directed needle biopsy of a right peritoneal mass on 11/21/2019 confirmed adenocarcinoma consistent with colorectal primary. The tumor was confirmed to be MSI stable and KRAS wild-type. 3. Hypertension. 4. GERD. Problems Addressed with this Encounter and Plan: Patient with well to moderately differentiated adenocarcinoma of the rectum. He had undergone chemoradiation utilizing capecitabine for chemosensitization following initial diagnosis of the rectal cancer in May 2019. He had subsequent disease progression to stage IVC (T3, N2, M1c) with CT evidence of metastatic involvement in the peritoneum and liver. CT-directed needle biopsy of a right peritoneal mass on 11/21/2019 confirmed adenocarcinoma consistent with colorectal primary. The tumor was confirmed to be MSI stable and KRAS wild-type. In November 2019 began palliative chemotherapy with modified FOLFOX in combination with panitumumab. During treatment he required dose reductions in the chemotherapy due to neuropathy and thrombocytopenia, and he required treatment interruption and subsequent dose reduction in the panitumumab due to severe skin eruption. However, he had a very good clinical response to the treatment. As of April 2020, following completion of 12 cycles of chemotherapy, his treatment was transitioned to panitumumab monotherapy, initially at a dosage of 4 mg/kg by IV infusion every 2 weeks. As of January 2021 the dosage was increased back to 6 mg/kg. At his follow-up visit on 08/18/2021 he reported worsening fatigue and abdominal pain as well as significant worsening of his skin eruption. His treatment was put on hold. Restaging PET/CT on 08/22/2021 showed evidence of progression of hepatic metastatic disease and new involvement in the left periaortic retroperitoneal lymph node. Rectal wall activity was thought to be physiologic, but it did have significant SUV at 8.7, more likely indicative of active primary malignancy. Given those findings, he was recommended to change treatment to FOLFIRI chemotherapy in combination with Avastin. He began cycle 1 of FOLFIRI/Avastin on 09/09/2021. He has now completed 3 cycles. Thus far he has tolerated it very well. He has not been evaluated for objective response, but he has had symptomatic improvement with the chemotherapy. His blood pressure is a little elevated today and he also has moderately severe neutropenia. He appears to be having no other adverse effects from the treatment. He will continue now with cycle 4 of FOLFIRI/Avastin. Due to the neutropenia he will be given a 20% reduction in the dosages of the irinotecan and the 5-FU infusion, and the 5-FU bolus will be omitted. He prefers not to start on a blood pressure medication, but he will be monitoring his blood pressure at home. He will be scheduled for a follow-up visit in 2 weeks. Signed By: Tiago Edwards M.D. <<Signature on File>>
[2021-11-03 08:16] LABS: Basophils % 0.3 %; Eosinophils % 0.7 %; Hematocrit 40.7 % (42.0-52.0); Hemoglobin 13.8 g/dL (11.7-16.6); Lymphocytes # 1.3 10^3/uL (0.8-4.8); Lymphocytes % 22.1 %; Mean Corpuscular HGB Conc 33.9 g/dL (30.0-36.0); Mean Corpuscular Hemoglobin 31.9 pg (28.0-34.0); Mean Platelet Volume 10.5 fL (7.4-10.4); Monocytes # 0.6 10^3/uL (0.2-0.9); Monocytes % 9.9 %; Neutrophils % 66.3 %; Nucleated Red Blood Cells % 0 %; Platelet Count 165 10^3/cmm (130-400); Red Blood Count 4.33 10^6/uL (4.1-5.3); Red Cell Distribution Width 16.1 % (12.1-15.1); White Blood Count 5.7 10^3/uL (4.0-10.0)
[2021-11-03 08:37] LABS: Alanine Aminotransferase 21 U/L (0-41); Albumin Level 4.1 g/dL (3.5-5.2); Alkaline Phosphatase 90 IU/L (40-130); Anion Gap 17.2 (5-19); Aspartate Amino Transferase 18 U/L (0-40); Blood Urea Nitrogen 16 mg/dL (8-23); Carbon Dioxide 22 mmol/L (22-29); Chloride 105 mmol/L (98-107); Globulin 2.1 g/dL (1.3-4.6); Glomerular Filtration Rate 74.3 mL/min (90-130); Glucose 100 mg/dL (65-115); Osmolality Calculated 291 mOsm/kg (285-295); Potassium 4.2 mmol/L (3.5-5.1); Sodium 140 mmol/L (136-145); Total Bilirubin 0.9 mg/dL (0.15-1.2); Total Protein 6.2 g/dL (6.6-8.7)
[2021-11-03] MEDS: dextrose 5% 250 ML 75 ML IV (09:45)
[2021-11-03] MEDS: palonosetron 0.25 mg/5 mL SDV IV (09:45)
== END 2021-11-13 23:59 | disposition home or self-care (01) ==
LOC: ONCMED 06:27
PROVIDERS: PCP Family Medicine; Visit Provider Internal Medicine Medical Oncology
DX: Z51.11 Encounter for antineoplastic chemotherapy (principal); C20 Malignant neoplasm of rectum; C78.7 Secondary malignant neoplasm of liver and intrahepatic bile duct; C78.6 Secondary malignant neoplasm of retroperitoneum and peritoneum; R18.0 Malignant ascites; I10 Essential (primary) hypertension; K21.9 Gastro-esophageal reflux disease without esophagitis; Z79.899 Other long term (current) drug therapy
CPT/HCPCS: 80053; 85025; 96367; 96368; 96375; 96413; 96415; 96416; 96417; 96523; 99215; J0461; J0640; J1100; J2469; J9035; J9190; J9206

== ENCOUNTER 2021-12-04 06:39 | Outpatient (RCR) | payer MEDICARE, OTHER, SELFPAY ==
[2021-11-18 09:47] LABS: Add Urine Microscopic? NO; Charge for UA Resulting for Rev
[2021-11-18 09:53] LABS: Basophils % 0.4 %; Eosinophils # 0.1 10^3/uL (0.0-0.8); Eosinophils % 0.9 %; Hematocrit 39.9 % (42.0-52.0); Hemoglobin 13.3 g/dL (11.7-16.6); Lymphocytes # 0.7 10^3/uL (0.8-4.8); Mean Corpuscular HGB Conc 33.3 g/dL (30.0-36.0); Mean Corpuscular Hemoglobin 31.7 pg (28.0-34.0); Mean Corpuscular Volume 95.2 fl (80-94); Mean Platelet Volume 10.1 fL (7.4-10.4); Monocytes # 0.6 10^3/uL (0.2-0.9); Monocytes % 10.8 %; Neutrophils # 3.94 10^3/uL (1.8-7.7); Neutrophils % 74.3 %; Nucleated Red Blood Cells % 0 %; Platelet Count 154 10^3/cmm (130-400); Red Blood Count 4.19 10^6/uL (4.1-5.3); Red Cell Distribution Width 15.7 % (12.1-15.1); White Blood Count 5.3 10^3/uL (4.0-10.0)
[2021-11-18 10:00] LABS: Bilirubin Urine Neg (Negative); Blood Urine Neg (Negative); Glucose Urine UA Norm (Normal); Ketones Urine Negative (Negative); Leukocyte Esterase Urine Negative (Negative); Nitrate Urine Negative (Negative); Protein Urine Neg (Negative); Specific Gravity, Urine 1.015 (1.005-1.030); Urine Appearance Clear (CLEAR); Urine Color Yellow (Yellow); Urobilinogen Urine Norm (Negative); pH Urine 5 (5-7)
[2021-11-18 10:11] LABS: Alanine Aminotransferase 20 U/L (0-41); Alkaline Phosphatase 73 IU/L (40-130); Anion Gap 14.7 (5-19); Aspartate Amino Transferase 18 U/L (0-40); Blood Urea Nitrogen 12 mg/dL (8-23); Calcium 8.3 mg/dL (8.5-10.5); Carbon Dioxide 24 mmol/L (22-29); Chloride 105 mmol/L (98-107); Globulin 1.9 g/dL (1.3-4.6); Glomerular Filtration Rate 96.1 mL/min (90-130); Glucose 105 mg/dL (65-115); Osmolality Calculated 290 mOsm/kg (285-295); Potassium 3.7 mmol/L (3.5-5.1); Sodium 140 mmol/L (136-145); Total Bilirubin 1.1 mg/dL (0.15-1.2); Total Protein 5.9 g/dL (6.6-8.7)
[2021-11-18] MEDS: dextrose 5% 250 ML 75 ML IV (11:42)
[2021-11-18] MEDS: palonosetron 0.25 mg/5 mL SDV IV (11:44)
[2021-12-01 09:28] LABS: Basophils % 0.5 %; Eosinophils # 0.1 10^3/uL (0.0-0.8); Eosinophils % 1.2 %; Hematocrit 42.6 % (42.0-52.0); Hemoglobin 14.2 g/dL (11.7-16.6); Lymphocytes # 0.8 10^3/uL (0.8-4.8); Lymphocytes % 18.2 %; Mean Corpuscular HGB Conc 33.3 g/dL (30.0-36.0); Mean Corpuscular Hemoglobin 32.2 pg (28.0-34.0); Mean Corpuscular Volume 96.6 fl (80-94); Mean Platelet Volume 10.3 fL (7.4-10.4); Monocytes # 0.5 10^3/uL (0.2-0.9); Monocytes % 12.9 %; Neutrophils # 2.79 10^3/uL (1.8-7.7); Neutrophils % 66.7 %; Nucleated Red Blood Cells % 0 %; Platelet Count 171 10^3/cmm (130-400); Red Blood Count 4.41 10^6/uL (4.1-5.3); Red Cell Distribution Width 15.5 % (12.1-15.1); White Blood Count 4.2 10^3/uL (4.0-10.0)
[2021-12-01 10:15] LABS: Carcinoembryonic Antigen 2.5 ng/mL (0.0-4.7)
[2021-12-01 10:27] LABS: Alanine Aminotransferase 23 U/L (0-41); Albumin Level 4.2 g/dL (3.5-5.2); Alkaline Phosphatase 93 IU/L (40-130); Anion Gap 16.2 (5-19); Aspartate Amino Transferase 20 U/L (0-40); Blood Urea Nitrogen 14 mg/dL (8-23); Calcium 8.3 mg/dL (8.5-10.5); Carbon Dioxide 24 mmol/L (22-29); Chloride 104 mmol/L (98-107); Globulin 1.9 g/dL (1.3-4.6); Glomerular Filtration Rate 83.9 mL/min (90-130); Glucose 89 mg/dL (65-115); Osmolality Calculated 290 mOsm/kg (285-295); Potassium 4.2 mmol/L (3.5-5.1); Sodium 140 mmol/L (136-145); Total Protein 6.1 g/dL (6.6-8.7)
[2021-12-02] MEDS: dextrose 5% 250 ML 75 ML IV (11:10)
[2021-12-02] MEDS: palonosetron 0.25 mg/5 mL SDV IV (11:10)
--- NOTE | 2021-12-06 09:25 | ONC FU_ITS ---
Dr. Edwards Patient Follow-Up Note Patient: Mick Fritz Unit #: [id number]: [id number] Dicatated By: Tiago Edwards M.D.Date of Visit:Dec 02, 2021 Onc Med Follow-up/Prog Note Chief Complaint: Rectal cancer. 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 In April 2019 he had been referred to Dr. Altamirano for excision of a skin lesion on his chest. He also was in need of screening colonoscopy. The skin lesion turned out to be a basal cell carcinoma. The colonoscopy showed a pedunculated polyp in the descending colon which was able to be removed endoscopically. Also noted was a malignant appearing mass involving two thirds of the circumference at the first rectal fold. 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 The rectal biopsy showed tubulovillous adenoma with focal high-grade dysplasia. As it was clearly a malignant appearing lesion, he then underwent sigmoidoscopy with a repeat biopsy on 05/15/2019. Pathology at that time was consistent with well to moderately differentiated adenocarcinoma. CT abdomen pelvis showed circumferential perirectal soft tissue thickening consistent with rectal neoplasm. Also noted was left perirectal lymphadenopathy and aortocaval lymphadenopathy consistent with metastatic disease with the largest aortocaval node measuring 2.0 cm and the left perirectal node measuring 2.2 cm. He was referred to Dr. Otto in [place] for further management, and he then undergo neoadjuvant chemoradiation utilizing capecitabine for chemosensitization. He apparently was lost to follow-up there after completing the radiation. He was admitted to [facility] on 10/29/2019 after presenting to the emergency room with abdominal pain and swelling. His CT abdomen/pelvis showed evidence of abundant ascites and omental carcinomatosis. There was abnormal wall thickening and enhancement of the loops of small bowel, possibly reflecting enteritis, but concerning for neoplastic infiltration of the wall of the loops of bowel. An apple core type lesion with marked wall thickening and narrowing was noted in the distal sigmoid colon/rectum. A new ill-defined 2 cm nodule in the dome of the liver was new and suspicious for metastatic disease. On 10/30/2019 he underwent paracentesis with removal of 2000 mL of fluid. The cytology was negative. I had seen him initially on 11/02/2019. At that point he was still in pretty good performance status. Biopsy was recommended to confirm the histology of his disease, particularly with the pattern of metastatic involvement and the fact that his CEA level was normal. As the liver lesion was not accessible for needle biopsy, he underwent CT directed needle biopsy of a peritoneal mass on 11/21/2019. Pathology has just become available, and it does show metastatic adenocarcinoma, CDX 2 positive, consistent with colonic primary. In the meantime, a next generation sequencing study had been requested on his primary tumor. It showed the tumor to be MSI stable and KRAS wild type. On 11/29/2019 he began cycle 1 of palliative chemotherapy with modified FOLFOX in combination with panitumumab. At that point he had very poor oral intake and very marginal performance status. He required IV fluid support, but he was able to tolerate the treatment without significant acute toxicity. By day 5 he was neutropenic, but he recovered uneventfully with Neupogen. He began to show gradual improvement in his symptoms. He was then able to continue treatment at 2-week intervals with Neulasta administered prophylactically. He began his 6th cycle of treatment on 02/06/2020. At that point he was given a 1 level reduction in the oxaliplatin dosage and a 20% reduction in the 5-FU dosage due to thrombocytopenia. The panitumumab was put on hold due to worsening skin eruption. He continued with his cycle 7 treatment on 02/20/2020. He tolerated it well. With cycle 8, on 03/05/2020, I did restart the panitumumab at a reduced dosage of 4 mg/kg. Restaging CT of the abdomen/pelvis on 03/14/2020 showed evidence of interval response to therapy with resolution of previously described ascites and omental carcinomatosis. Also noted was resolution of the metastatic lesion in the dome of the liver. There was residual circumferential thickening involving the distal sigmoid colon and rectum. There was no evidence of disease progression. He continued with his 12th cycle of treatment on 04/30/2020. Beginning on 05/13/2020 I opted to drop the chemotherapy and continue with panitumumab monotherapy. Restaging CT scans on 06/20/2020 showed residual thickening involving the distal sigmoid colon and rectum, stable compared to the March 2020 CT and the October 2019 PET/CT. A 2.5 cm hepatic cyst along the undersurface of the right hepatic lobe appeared stable. There was mild diffuse fatty infiltration of the liver. There was no evidence of metastatic disease in the chest, abdomen, or pelvis. Restaging CT scans on 11/21/2020 showed no evidence for metastatic disease in the chest, abdomen, or pelvis. There was stable mild residual thickening involving the distal sigmoid colon and rectum. With those findings, he continued treatment with panitumumab at 2-week intervals. At his follow-up visit on 04/15/2021 he was having some new abdominal pain. He continued his treatment, but he then had restaging CT scans of the chest, abdomen, and pelvis on 04/23/2021. There was mild circumferential wall thickening involving the rectosigmoid, consistent with treated neoplasm and with unchanged appearance from previous studies. There was no evidence of disease progression. He continued treatment with panitumumab. At his follow-up visit on 08/18/2021 he had multiple complaints which included increased abdominal pain and fatigue as well as significant worsening of his skin eruption. I did opt to put his treatment on hold, and he was given empiric treatment with prednisone and doxycycline. Restaging PET/CT on 08/22/2021 showed improvement in the omental implants and resolution of ascites compared to the study from October 2019. There did appear to be progression of hepatic metastatic disease and was also noted to be a new left periaortic retroperitoneal lymph node measuring 2.5 cm with SUV 4.3, consistent with malignancy/progression. New rectal wall activity was felt to be likely physiologic, but recurrence was not excluded, SUV 8.7. With those findings, he was recommended to change treatment to FOLFIRI chemotherapy in combination with Avastin. His other medical illnesses include hypertension and GERD. He has a remote history of smoking a pack of cigarettes daily for about 10 years. He had quit smoking cigarettes sometime in his early 20s, but he has continued smoking a cigar about 3 times a week. INTERIM HISTORY: He began cycle 1 of FOLFIRI/Avastin on 09/09/2021. He tolerated it well, and he then continued treatment at 2-week intervals. As of 11/18/2021 he completed his 6th cycle. Restaging PET/CT on 11/21/2021 showed resolution of multifocal hepatic metastatic disease compared to the prior study from August 2021. The left-sided periaortic retroperitoneal lymph node was noted to be subcentimeter in size and FDG negative and there was resolution of the questionable rectal wall activity. Overall, there was no evidence for active malignancy. He is seen for a follow-up visit. He has been feeling good generally. He has good energy and activity tolerance. ECOG score is 0. Appetite also is good. He has no fever or night sweats. He has had some tearing and some nasal drainage. He also reports having a few bumps on his cheeks. He has occasional mouth sores. He has not had sore throat or difficulty swallowing. He does not complain of cough, and he has not been having shortness of breath or chest pain. His acid reflux is adequately managed taking omeprazole as needed. Bowel and bladder function have been okay. In particular, he has had no diarrhea. He has had some soreness in his left shoulder. He has no other joint or bone pain. He does not complain of headache or dizziness. He sometimes has numbness in his right hand, mainly when he is driving. He has no other focal neurologic symptoms. Medications: predniSONE 1 Tablet (of 5 mg) Oral daily, PriLOSEC OTC 1 Tablet (of 20 mg) Tablet, enteric coated Oral daily Allergies: No Known Allergies. Vital Signs: Performed on Dec 02, 2021 11:11 Height - 70.00 in Weight - 194.4 lbs (LOW) BSA - 2.06 sq.m BMI - 27.89 Temperature - 98.0 F (LOW) Pulse - 71 /min Respiration - 18 /min BP - 170/77 mm(hg) (HIGH) O2 Sat - 98 % Pain - 3 Fatigue - 2 Physical Examination: Constitutional - He looks pretty good generally, Eyes - Sclerae nonicteric. Conjunctivae clear, ENMT - No lesions noted in the oral cavity, Hematologic/Lymphatic - No cervical, clavicular, or axillary adenopathy, Respiratory - Lungs sound clear, Cardiovascular - Heart rhythm is regular. There is no murmur, gallop, or rub noted, Abdomen - Soft. Liver and spleen are not enlarged. There is no abdominal mass or ascites noted. There is no inguinal adenopathy, Extremities - No edema, Neurologic - No focal neurologic deficits noted. Lab/Imaging: CBC shows hemoglobin 14.2 g, white blood cell count 4200, and platelet count 171,000. Comprehensive metabolic profile shows stable renal function with BUN 14 and creatinine 0.9 mg/dL. Bilirubin and liver enzymes are normal. CEA is stable at 2.5 ng/mL. Problem List: 1. Well to moderately differentiated adenocarcinoma of the rectum. He underwent chemoradiation utilizing capecitabine for chemosensitization following initial diagnosis of the rectal cancer in May 2019. 2. He had subsequent disease progression to stage IVC (T3, N2, M1c) with CT evidence of metastatic involvement in the peritoneum and liver. He had associated ascites. CT-directed needle biopsy of a right peritoneal mass on 11/21/2019 confirmed adenocarcinoma consistent with colorectal primary. The tumor was confirmed to be MSI stable and KRAS wild-type. 3. Hypertension. 4. GERD. Problems Addressed with this Encounter and Plan: Patient with well to moderately differentiated adenocarcinoma of the rectum. He had undergone chemoradiation utilizing capecitabine for chemosensitization following initial diagnosis of the rectal cancer in May 2019. He had subsequent disease progression to stage IVC (T3, N2, M1c) with CT evidence of metastatic involvement in the peritoneum and liver. CT-directed needle biopsy of a right peritoneal mass on 11/21/2019 confirmed adenocarcinoma consistent with colorectal primary. The tumor was confirmed to be MSI stable and KRAS wild-type. In November 2019 began palliative chemotherapy with modified FOLFOX in combination with panitumumab. During treatment he required dose reductions in the chemotherapy due to neuropathy and thrombocytopenia, and he required treatment interruption and subsequent dose reduction in the panitumumab due to severe skin eruption. However, he had a very good clinical response to the treatment. As of April 2020, following completion of 12 cycles of chemotherapy, his treatment was transitioned to panitumumab monotherapy, initially at a dosage of 4 mg/kg by IV infusion every 2 weeks. As of January 2021 the dosage was increased back to 6 mg/kg. At his follow-up visit on 08/18/2021 he reported worsening fatigue and abdominal pain as well as significant worsening of his skin eruption. His treatment was put on hold. Restaging PET/CT on 08/22/2021 showed evidence of progression of hepatic metastatic disease and new involvement in the left periaortic retroperitoneal lymph node. Rectal wall activity was thought to be physiologic, but it did have significant SUV at 8.7, more likely indicative of active primary malignancy. Given those findings, he was recommended to change treatment to FOLFIRI chemotherapy in combination with Avastin. He began cycle 1 of FOLFIRI/Avastin on 09/09/2021. He tolerated it well, and he then continued treatment at 2-week intervals. He has now completed 6 cycles. He has had a very good response with his restaging PET/CT on 11/21/2021 showed no active malignancy. He will proceed now with cycle 7 of FOLFIRI/Avastin. The dosages remain the same. He returns in 2 weeks. Signed By: Tiago Edwards M.D. <<Signature on File>>
== END 2021-12-14 23:59 | disposition home or self-care (01) ==
LOC: ONCMED 06:39
PROVIDERS: PCP Family Medicine; Visit Provider Internal Medicine Medical Oncology
DX: Z51.11 Encounter for antineoplastic chemotherapy (principal); C20 Malignant neoplasm of rectum; C78.7 Secondary malignant neoplasm of liver and intrahepatic bile duct; C78.6 Secondary malignant neoplasm of retroperitoneum and peritoneum; C78.5 Secondary malignant neoplasm of large intestine and rectum; K21.9 Gastro-esophageal reflux disease without esophagitis; I10 Essential (primary) hypertension; Z79.899 Other long term (current) drug therapy
CPT/HCPCS: 36591; 80053; 81003; 82378; 85025; 96367; 96368; 96375; 96413; 96415; 96416; 96417; 96523; 99215; J0461; J0640; J1100; J2469; J9035; J9190; J9206

== ENCOUNTER 2022-01-06 06:55 | Outpatient (RCR) | payer MEDICARE, OTHER, SELFPAY ==
[2021-12-15 14:04] LABS: Basophils % 0.5 %; Eosinophils % 0.7 %; Hematocrit 41.4 % (42.0-52.0); Hemoglobin 13.8 g/dL (11.7-16.6); Lymphocytes # 0.7 10^3/uL (0.8-4.8); Lymphocytes % 15.1 %; Mean Corpuscular HGB Conc 33.3 g/dL (30.0-36.0); Mean Corpuscular Hemoglobin 32.5 pg (28.0-34.0); Mean Corpuscular Volume 97.6 fl (80-94); Mean Platelet Volume 10.7 fL (7.4-10.4); Monocytes # 0.4 10^3/uL (0.2-0.9); Monocytes % 8.1 %; Neutrophils # 3.24 10^3/uL (1.8-7.7); Neutrophils % 75.1 %; Nucleated Red Blood Cells % 0 %; Platelet Count 178 10^3/cmm (130-400); Red Blood Count 4.24 10^6/uL (4.1-5.3); White Blood Count 4.3 10^3/uL (4.0-10.0)
[2021-12-15 14:31] LABS: Alanine Aminotransferase 28 U/L (0-41); Albumin Level 4.1 g/dL (3.5-5.2); Alkaline Phosphatase 98 IU/L (40-130); Anion Gap 12.4 (5-19); Aspartate Amino Transferase 25 U/L (0-40); Blood Urea Nitrogen 15 mg/dL (8-23); Calcium 8.1 mg/dL (8.5-10.5); Carbon Dioxide 25 mmol/L (22-29); Chloride 106 mmol/L (98-107); Globulin 2.1 g/dL (1.3-4.6); Glomerular Filtration Rate 74.3 mL/min (90-130); Glucose 116 mg/dL (65-115); Osmolality Calculated 290 mOsm/kg (285-295); Potassium 4.4 mmol/L (3.5-5.1); Sodium 139 mmol/L (136-145); Total Bilirubin 0.8 mg/dL (0.15-1.2); Total Protein 6.2 g/dL (6.6-8.7)
[2021-12-16] MEDS: palonosetron 0.25 mg/5 mL SDV IV (07:00)
[2021-12-16] MEDS: dextrose 5% 250 ML 75 ML IV (07:05)
[2022-01-05 14:15] LABS: Basophils % 0.6 %; Eosinophils # 0.1 10^3/uL (0.0-0.8); Eosinophils % 1.8 %; Hematocrit 41.6 % (42.0-52.0); Lymphocytes # 0.8 10^3/uL (0.8-4.8); Lymphocytes % 25.7 %; Mean Corpuscular HGB Conc 33.7 g/dL (30.0-36.0); Mean Corpuscular Hemoglobin 32.1 pg (28.0-34.0); Mean Corpuscular Volume 95.4 fl (80-94); Mean Platelet Volume 10.9 fL (7.4-10.4); Monocytes # 0.5 10^3/uL (0.2-0.9); Monocytes % 14.1 %; Neutrophils # 1.88 10^3/uL (1.8-7.7); Neutrophils % 57.5 %; Nucleated Red Blood Cells % 0 %; Platelet Count 198 10^3/cmm (130-400); Red Blood Count 4.36 10^6/uL (4.1-5.3); White Blood Count 3.3 10^3/uL (4.0-10.0)
[2022-01-05 14:46] LABS: Alanine Aminotransferase 34 U/L (0-41); Albumin Level 4.2 g/dL (3.5-5.2); Alkaline Phosphatase 91 IU/L (40-130); Anion Gap 12.9 (5-19); Aspartate Amino Transferase 25 U/L (0-40); Blood Urea Nitrogen 13 mg/dL (8-23); Calcium 8.9 mg/dL (8.5-10.5); Carbon Dioxide 25 mmol/L (22-29); Chloride 104 mmol/L (98-107); Globulin 2.5 g/dL (1.3-4.6); Glucose 93 mg/dL (65-115); Osmolality Calculated 286 mOsm/kg (285-295); Potassium 3.9 mmol/L (3.5-5.1); Sodium 138 mmol/L (136-145); Total Bilirubin 0.8 mg/dL (0.15-1.2); Total Protein 6.7 g/dL (6.6-8.7)
[2022-01-06] MEDS: dextrose 5% 250 ML 75 ML IV (07:58)
[2022-01-06] MEDS: palonosetron 0.25 mg/5 mL SDV IV (08:00)
--- NOTE | 2022-01-06 10:48 | ONC FU_ITS ---
Dr. Edwards Patient Follow-Up Note Patient: Mick Fritz Unit #: [id number]: [id number] Dicatated By: Tiago Edwards M.D.Date of Visit:Jan 06, 2022 Onc Med Follow-up/Prog Note Chief Complaint: Rectal cancer. 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 In April 2019 he had been referred to Dr. Altamirano for excision of a skin lesion on his chest. He also was in need of screening colonoscopy. The skin lesion turned out to be a basal cell carcinoma. The colonoscopy showed a pedunculated polyp in the descending colon which was able to be removed endoscopically. Also noted was a malignant appearing mass involving two thirds of the circumference at the first rectal fold. 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 The rectal biopsy showed tubulovillous adenoma with focal high-grade dysplasia. As it was clearly a malignant appearing lesion, he then underwent sigmoidoscopy with a repeat biopsy on 05/15/2019. Pathology at that time was consistent with well to moderately differentiated adenocarcinoma. CT abdomen pelvis showed circumferential perirectal soft tissue thickening consistent with rectal neoplasm. Also noted was left perirectal lymphadenopathy and aortocaval lymphadenopathy consistent with metastatic disease with the largest aortocaval node measuring 2.0 cm and the left perirectal node measuring 2.2 cm. He was referred to Dr. Otto in [place] for further management, and he then undergo neoadjuvant chemoradiation utilizing capecitabine for chemosensitization. He apparently was lost to follow-up there after completing the radiation. He was admitted to [facility] on 10/29/2019 after presenting to the emergency room with abdominal pain and swelling. His CT abdomen/pelvis showed evidence of abundant ascites and omental carcinomatosis. There was abnormal wall thickening and enhancement of the loops of small bowel, possibly reflecting enteritis, but concerning for neoplastic infiltration of the wall of the loops of bowel. An apple core type lesion with marked wall thickening and narrowing was noted in the distal sigmoid colon/rectum. A new ill-defined 2 cm nodule in the dome of the liver was new and suspicious for metastatic disease. On 10/30/2019 he underwent paracentesis with removal of 2000 mL of fluid. The cytology was negative. I had seen him initially on 11/02/2019. At that point he was still in pretty good performance status. Biopsy was recommended to confirm the histology of his disease, particularly with the pattern of metastatic involvement and the fact that his CEA level was normal. As the liver lesion was not accessible for needle biopsy, he underwent CT directed needle biopsy of a peritoneal mass on 11/21/2019. Pathology has just become available, and it does show metastatic adenocarcinoma, CDX 2 positive, consistent with colonic primary. In the meantime, a next generation sequencing study had been requested on his primary tumor. It showed the tumor to be MSI stable and KRAS wild type. On 11/29/2019 he began cycle 1 of palliative chemotherapy with modified FOLFOX in combination with panitumumab. At that point he had very poor oral intake and very marginal performance status. He required IV fluid support, but he was able to tolerate the treatment without significant acute toxicity. By day 5 he was neutropenic, but he recovered uneventfully with Neupogen. He began to show gradual improvement in his symptoms. He was then able to continue treatment at 2-week intervals with Neulasta administered prophylactically. He began his 6th cycle of treatment on 02/06/2020. At that point he was given a 1 level reduction in the oxaliplatin dosage and a 20% reduction in the 5-FU dosage due to thrombocytopenia. The panitumumab was put on hold due to worsening skin eruption. He continued with his cycle 7 treatment on 02/20/2020. He tolerated it well. With cycle 8, on 03/05/2020, I did restart the panitumumab at a reduced dosage of 4 mg/kg. Restaging CT of the abdomen/pelvis on 03/14/2020 showed evidence of interval response to therapy with resolution of previously described ascites and omental carcinomatosis. Also noted was resolution of the metastatic lesion in the dome of the liver. There was residual circumferential thickening involving the distal sigmoid colon and rectum. There was no evidence of disease progression. He continued with his 12th cycle of treatment on 04/30/2020. Beginning on 05/13/2020 I opted to drop the chemotherapy and continue with panitumumab monotherapy. Restaging CT scans on 06/20/2020 showed residual thickening involving the distal sigmoid colon and rectum, stable compared to the March 2020 CT and the October 2019 PET/CT. A 2.5 cm hepatic cyst along the undersurface of the right hepatic lobe appeared stable. There was mild diffuse fatty infiltration of the liver. There was no evidence of metastatic disease in the chest, abdomen, or pelvis. Restaging CT scans on 11/21/2020 showed no evidence for metastatic disease in the chest, abdomen, or pelvis. There was stable mild residual thickening involving the distal sigmoid colon and rectum. With those findings, he continued treatment with panitumumab at 2-week intervals. At his follow-up visit on 04/15/2021 he was having some new abdominal pain. He continued his treatment, but he then had restaging CT scans of the chest, abdomen, and pelvis on 04/23/2021. There was mild circumferential wall thickening involving the rectosigmoid, consistent with treated neoplasm and with unchanged appearance from previous studies. There was no evidence of disease progression. He continued treatment with panitumumab. At his follow-up visit on 08/18/2021 he had multiple complaints which included increased abdominal pain and fatigue as well as significant worsening of his skin eruption. I did opt to put his treatment on hold, and he was given empiric treatment with prednisone and doxycycline. Restaging PET/CT on 08/22/2021 showed improvement in the omental implants and resolution of ascites compared to the study from October 2019. There did appear to be progression of hepatic metastatic disease and was also noted to be a new left periaortic retroperitoneal lymph node measuring 2.5 cm with SUV 4.3, consistent with malignancy/progression. New rectal wall activity was felt to be likely physiologic, but recurrence was not excluded, SUV 8.7. With those findings, he was recommended to change treatment to FOLFIRI chemotherapy in combination with Avastin. His other medical illnesses include hypertension and GERD. He has a remote history of smoking a pack of cigarettes daily for about 10 years. He had quit smoking cigarettes sometime in his early 20s, but he has continued smoking a cigar about 3 times a week. INTERIM HISTORY: He began cycle 1 of FOLFIRI/Avastin on 09/09/2021. He tolerated it well, and he then continued treatment at 2-week intervals. As of 11/18/2021 he completed his 6th cycle. Restaging PET/CT on 11/21/2021 showed resolution of multifocal hepatic metastatic disease compared to the prior study from August 2021. The left-sided periaortic retroperitoneal lymph node was noted to be subcentimeter in size and FDG negative and there was resolution of the questionable rectal wall activity. Overall, there was no evidence for active malignancy. With those findings he continued treatment with FOLFIRI/Avastin. As of 12/16/2021 he began his 8th cycle. He opted to delay cycle 9 due to symptoms of upper respiratory infection. He is seen for a follow-up visit. Last week he had been having cold symptoms including cough productive whitish sputum, chills, and deep sore throat. He also is having pretty severe lower abdominal cramping, and he had diarrhea 1 day. He was also very fatigued. He is feeling somewhat better now, though energy is still down somewhat. ECOG score is 1. He has good appetite. He is not having fever or night sweats. He has not had sore mouth, and his throat is better. His cough has resolved. He has not been having shortness of breath or chest pain. He currently has no GI or complaints. He has no significant joint or bone pain. He had headache 1 day. He has some numbness in his right arm, but it is intermittent. Medications: HYDROcodone-Acetaminophen 1 (10-325 mg) Tablet Oral q 4 hours PRN, PriLOSEC OTC 1 Tablet (of 20 mg) Tablet, enteric coated Oral daily Allergies: No Known Allergies. Vital Signs: Performed on Jan 06, 2022 08:03 Height - 70.00 in Weight - 196.4 lbs (HIGH) BSA - 2.07 sq.m BMI - 28.18 Temperature - 98.1 F (LOW) Pulse - 69 /min Respiration - 18 /min BP - 147/93 mm(hg) (HIGH) O2 Sat - 99 % Pain - 0 Fatigue - 1 Physical Examination: Constitutional - He looks pretty good generally, Eyes - Sclerae nonicteric. Conjunctivae clear, ENMT - No lesions noted in the oral cavity, Hematologic/Lymphatic - No cervical, clavicular, or axillary adenopathy, Respiratory - Lungs sound clear, Cardiovascular - Heart rhythm is regular. There is no murmur, gallop, or rub noted, Abdomen - Soft. Liver and spleen are not enlarged. There is no abdominal mass or ascites noted. There is no inguinal adenopathy, Extremities - No edema, Neurologic - No focal neurologic deficits noted. Lab/Imaging: CBC shows hemoglobin 14.0 g, white blood cell count 3300, and platelet count 198,000. Comprehensive metabolic profile shows normal renal function with BUN 13 and creatinine 0.6 mg/dL. Bilirubin and liver enzymes are normal. Problem List: 1. Well to moderately differentiated adenocarcinoma of the rectum. He underwent chemoradiation utilizing capecitabine for chemosensitization following initial diagnosis of the rectal cancer in May 2019. 2. He had subsequent disease progression to stage IVC (T3, N2, M1c) with CT evidence of metastatic involvement in the peritoneum and liver. He had associated ascites. CT-directed needle biopsy of a right peritoneal mass on 11/21/2019 confirmed adenocarcinoma consistent with colorectal primary. The tumor was confirmed to be MSI stable and KRAS wild-type. 3. Hypertension. 4. GERD. Problems Addressed with this Encounter and Plan: Patient with well to moderately differentiated adenocarcinoma of the rectum. He had undergone chemoradiation utilizing capecitabine for chemosensitization following initial diagnosis of the rectal cancer in May 2019. He had subsequent disease progression to stage IVC (T3, N2, M1c) with CT evidence of metastatic involvement in the peritoneum and liver. CT-directed needle biopsy of a right peritoneal mass on 11/21/2019 confirmed adenocarcinoma consistent with colorectal primary. The tumor was confirmed to be MSI stable and KRAS wild-type. In November 2019 began palliative chemotherapy with modified FOLFOX in combination with panitumumab. During treatment he required dose reductions in the chemotherapy due to neuropathy and thrombocytopenia, and he required treatment interruption and subsequent dose reduction in the panitumumab due to severe skin eruption. However, he had a very good clinical response to the treatment. As of April 2020, following completion of 12 cycles of chemotherapy, his treatment was transitioned to panitumumab monotherapy, initially at a dosage of 4 mg/kg by IV infusion every 2 weeks. As of January 2021 the dosage was increased back to 6 mg/kg. At his follow-up visit on 08/18/2021 he reported worsening fatigue and abdominal pain as well as significant worsening of his skin eruption. His treatment was put on hold. Restaging PET/CT on 08/22/2021 showed evidence of progression of hepatic metastatic disease and new involvement in the left periaortic retroperitoneal lymph node. Rectal wall activity was thought to be physiologic, but it did have significant SUV at 8.7, more likely indicative of active primary malignancy. Given those findings, he was recommended to change treatment to FOLFIRI chemotherapy in combination with Avastin. He began cycle 1 of FOLFIRI/Avastin on 09/09/2021. He tolerated it well, and he then continued treatment at 2-week intervals. He has now completed 6 cycles. He has had a very good response with his restaging PET/CT on 11/21/2021 showed no active malignancy. He continued treatment with FOLFIRI/Avastin. He has now completed 8 cycles. His treatment was then delayed 1 week due to symptoms of upper respiratory infection. Associated with had he also had some lower abdominal pain and transient diarrhea. That all seems to have resolved now. As such, he will proceed with cycle 9 of FOLFIRI/Avastin. Dosages remain the same. He will be scheduled for treatment in 2 weeks and for a follow-up visit in 4 weeks. Signed By: Tiago Edwards M.D. <<Signature on File>>
== END 2022-01-11 23:59 | disposition home or self-care (01) ==
LOC: ONCMED 06:55
PROVIDERS: PCP Family Medicine; Visit Provider Internal Medicine Medical Oncology
DX: Z51.11 Encounter for antineoplastic chemotherapy (principal); C20 Malignant neoplasm of rectum; C78.5 Secondary malignant neoplasm of large intestine and rectum; C78.7 Secondary malignant neoplasm of liver and intrahepatic bile duct; R18.0 Malignant ascites; I10 Essential (primary) hypertension; K21.9 Gastro-esophageal reflux disease without esophagitis; Z79.52 Long term (current) use of systemic steroids; Z79.899 Other long term (current) drug therapy
CPT/HCPCS: 36591; 80053; 85025; 96367; 96368; 96375; 96413; 96415; 96416; 96417; 99215; J0461; J0640; J1100; J2469; J9035; J9190; J9206

== ENCOUNTER 2022-02-10 08:52 | Outpatient (RCR) | payer MEDICARE, OTHER, SELFPAY ==
[2022-02-10 09:21] LABS: Basophils % 0.7 %; Eosinophils # 0.1 10^3/uL (0.0-0.8); Hematocrit 45.5 % (42.0-52.0); Hemoglobin 14.7 g/dL (11.7-16.6); Lymphocytes % 16.1 %; Mean Corpuscular HGB Conc 32.3 g/dL (30.0-36.0); Mean Corpuscular Hemoglobin 30.5 pg (28.0-34.0); Mean Corpuscular Volume 94.4 fl (80-94); Mean Platelet Volume 10.5 fL (7.4-10.4); Monocytes # 0.5 10^3/uL (0.2-0.9); Monocytes % 8.7 %; Neutrophils # 4.36 10^3/uL (1.8-7.7); Neutrophils % 71.8 %; Nucleated Red Blood Cells % 0 %; Platelet Count 209 10^3/cmm (130-400); Red Blood Count 4.82 10^6/uL (4.1-5.3); Red Cell Distribution Width 14.3 % (12.1-15.1); White Blood Count 6.1 10^3/uL (4.0-10.0)
[2022-02-10 09:37] LABS: Alanine Aminotransferase 25 U/L (0-41); Alkaline Phosphatase 87 IU/L (40-130); Aspartate Amino Transferase 24 U/L (0-40); Blood Urea Nitrogen 15 mg/dL (8-23); Carbon Dioxide 24 mmol/L (22-29); Chloride 104 mmol/L (98-107); Globulin 2.5 g/dL (1.3-4.6); Glomerular Filtration Rate 83.9 mL/min (90-130); Glucose 115 mg/dL (65-115); Osmolality Calculated 288 mOsm/kg (285-295); Sodium 138 mmol/L (136-145); Total Bilirubin 0.6 mg/dL (0.15-1.2); Total Protein 6.5 g/dL (6.6-8.7)
[2022-02-10] MEDS: dextrose 5% 250 ML 75 ML IV (11:50)
[2022-02-10] MEDS: palonosetron 0.25 mg/5 mL SDV IV (11:50)
--- NOTE | 2022-02-14 21:10 | ONC FU_ITS ---
Lizabeth Ya Progress Note Patient: Mick Fritz Unit #: [id number]: [id number] Dicatated By: Lizabeth Ya N.P.Date of Visit:Feb 10, 2022 Onc MED Follow-up/Prog Note Chief Complaint: Rectal cancer. 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 In April 2019 he had been referred to Dr. Altamirano for excision of a skin lesion on his chest. He also was in need of screening colonoscopy. The skin lesion turned out to be a basal cell carcinoma. The colonoscopy showed a pedunculated polyp in the descending colon which was able to be removed endoscopically. Also noted was a malignant appearing mass involving two thirds of the circumference at the first rectal fold. 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 The rectal biopsy showed tubulovillous adenoma with focal high-grade dysplasia. As it was clearly a malignant appearing lesion, he then underwent sigmoidoscopy with a repeat biopsy on 05/15/2019. Pathology at that time was consistent with well to moderately differentiated adenocarcinoma. CT abdomen pelvis showed circumferential perirectal soft tissue thickening consistent with rectal neoplasm. Also noted was left perirectal lymphadenopathy and aortocaval lymphadenopathy consistent with metastatic disease with the largest aortocaval node measuring 2.0 cm and the left perirectal node measuring 2.2 cm. He was referred to Dr. Otto in [place] for further management, and he then undergo neoadjuvant chemoradiation utilizing capecitabine for chemosensitization. He apparently was lost to follow-up there after completing the radiation. He was admitted to [facility] on 10/29/2019 after presenting to the emergency room with abdominal pain and swelling. His CT abdomen/pelvis showed evidence of abundant ascites and omental carcinomatosis. There was abnormal wall thickening and enhancement of the loops of small bowel, possibly reflecting enteritis, but concerning for neoplastic infiltration of the wall of the loops of bowel. An apple core type lesion with marked wall thickening and narrowing was noted in the distal sigmoid colon/rectum. A new ill-defined 2 cm nodule in the dome of the liver was new and suspicious for metastatic disease. On 10/30/2019 he underwent paracentesis with removal of 2000 mL of fluid. The cytology was negative. Dr. Edwards had seen him initially on 11/02/2019. At that point he was still in pretty good performance status. Biopsy was recommended to confirm the histology of his disease, particularly with the pattern of metastatic involvement and the fact that his CEA level was normal. As the liver lesion was not accessible for needle biopsy, he underwent CT directed needle biopsy of a peritoneal mass on 11/21/2019. Pathology has just become available, and it does show metastatic adenocarcinoma, CDX 2 positive, consistent with colonic primary. In the meantime, a next generation sequencing study had been requested on his primary tumor. It showed the tumor to be MSI stable and KRAS wild type. On 11/29/2019 he began cycle 1 of palliative chemotherapy with modified FOLFOX in combination with panitumumab. At that point he had very poor oral intake and very marginal performance status. He required IV fluid support, but he was able to tolerate the treatment without significant acute toxicity. By day 5 he was neutropenic, but he recovered uneventfully with Neupogen. He began to show gradual improvement in his symptoms. He was then able to continue treatment at 2-week intervals with Neulasta administered prophylactically. He began his 6th cycle of treatment on 02/06/2020. At that point he was given a 1 level reduction in the oxaliplatin dosage and a 20% reduction in the 5-FU dosage due to thrombocytopenia. The panitumumab was put on hold due to worsening skin eruption. He continued with his cycle 7 treatment on 02/20/2020. He tolerated it well. With cycle 8, on 03/05/2020, Dr. Edwards restarted the panitumumab at a reduced dosage of 4 mg/kg. Restaging CT of the abdomen/pelvis on 03/14/2020 showed evidence of interval response to therapy with resolution of previously described ascites and omental carcinomatosis. Also noted was resolution of the metastatic lesion in the dome of the liver. There was residual circumferential thickening involving the distal sigmoid colon and rectum. There was no evidence of disease progression. He continued with his 12th cycle of treatment on 04/30/2020. Beginning on 05/13/2020 I opted to drop the chemotherapy and continue with panitumumab monotherapy. Restaging CT scans on 06/20/2020 showed residual thickening involving the distal sigmoid colon and rectum, stable compared to the March 2020 CT and the October 2019 PET/CT. A 2.5 cm hepatic cyst along the undersurface of the right hepatic lobe appeared stable. There was mild diffuse fatty infiltration of the liver. There was no evidence of metastatic disease in the chest, abdomen, or pelvis. Restaging CT scans on 11/21/2020 showed no evidence for metastatic disease in the chest, abdomen, or pelvis. There was stable mild residual thickening involving the distal sigmoid colon and rectum. With those findings, he continued treatment with panitumumab at 2-week intervals. At his follow-up visit on 04/15/2021 he was having some new abdominal pain. He continued his treatment, but he then had restaging CT scans of the chest, abdomen, and pelvis on 04/23/2021. There was mild circumferential wall thickening involving the rectosigmoid, consistent with treated neoplasm and with unchanged appearance from previous studies. There was no evidence of disease progression. He continued treatment with panitumumab. At his follow-up visit on 08/18/2021 he had multiple complaints which included increased abdominal pain and fatigue as well as significant worsening of his skin eruption. I did opt to put his treatment on hold, and he was given empiric treatment with prednisone and doxycycline. Restaging PET/CT on 08/22/2021 showed improvement in the omental implants and resolution of ascites compared to the study from October 2019. There did appear to be progression of hepatic metastatic disease and was also noted to be a new left periaortic retroperitoneal lymph node measuring 2.5 cm with SUV 4.3, consistent with malignancy/progression. New rectal wall activity was felt to be likely physiologic, but recurrence was not excluded, SUV 8.7. With those findings, he was recommended to change treatment to FOLFIRI chemotherapy in combination with Avastin. His other medical illnesses include hypertension and GERD. He has a remote history of smoking a pack of cigarettes daily for about 10 years. He had quit smoking cigarettes sometime in his early 20s, but he has continued smoking a cigar about 3 times a week. INTERIM HISTORY: He began cycle 1 of FOLFIRI/Avastin on 09/09/2021. He tolerated it well, and he then continued treatment at 2-week intervals. As of 11/18/2021 he completed his 6th cycle. Restaging PET/CT on 11/21/2021 showed resolution of multifocal hepatic metastatic disease compared to the prior study from August 2021. The left-sided periaortic retroperitoneal lymph node was noted to be subcentimeter in size and FDG negative and there was resolution of the questionable rectal wall activity. Overall, there was no evidence for active malignancy. With those findings he continued treatment with FOLFIRI/Avastin. As of 12/16/2021 he began his 8th cycle. He opted to delay cycle 9 due to symptoms of upper respiratory infection. Patient presents today for follow-up. He states he is feeling well. He continues to have moderate fatigue. His appetite is good. He denies fever, chills, night sweats. No sinus drainage or sore throat. No shortness of breath, cough, chest pain. No GI or problems. No joint pain. No headaches or dizziness. Review Of Symptoms: see above Past Medical History: Gastroesophageal reflux disease Hypertension Rectal cancer Past Surgical History: Liver biopsy Tonsillectomy Flu vaccine in 2019 - left deltoid Left side porthacatheter placement dr. altamirano in 2019 Sigmoidoscopy with biopsy of rectal mass in 2018 Colonoscopy in 2019 Excision of basal cell skin cancer in 2019 Allergies: No Known Allergies. Medications: HYDROcodone-Acetaminophen 1 (10-325 mg) Tablet Oral q 4 hours PRN PriLOSEC OTC 1 Tablet (of 20 mg) Tablet, enteric coated Oral daily Family History: Mr. Fritz's mother is alive. Mr. Fritz's father at age 92: heart disease, and type II diabetes. Mr. Fritz has 1 brother who is alive. He has 1 sister who is alive. Mother still living at age 89. Father with heart disease at age 92. He also had diabetes. A maternal aunt had breast cancer. His maternal grandfather had lung cancer. 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 Mr. Fritz quit smoking 48 years ago but had smoked 1.0 pack/day for 12 years. He quit drinking less than one year ago. He has indicated exposure to the following products: cigars. Mr. Fritz reports the following support systems: lives with spouse, significant other, family, or friends and adequate transportation available for expected visits. His diet consists of regular meals. He indicates his activity level as: light exercise. 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 He has a history of smoking 1 pack of cigarettes daily for 10 years, but he had quit by sometime in his early 20s. He smokes a cigar about 3 times a week. Alcohol use averages 2 beers 3 days a week. Physical Examination: Performed on Feb 10, 2022 11:33: Height - 70.00 in, BP - 159/91 mm(hg) (HIGH), Performed on Feb 10, 2022 11:32: Height - 70.00 in, Weight - 191.8 lbs (LOW), BSA - 2.05 sq.m, BMI - 27.52, Temperature - 98.6 F, Pulse - 58 /min (LOW), Respiration - 18 /min, BP - 163/93 mm(hg) (HIGH), O2 Sat - 98 %, Pain - 4, and Fatigue - 5. Performance Status: 1 - No physically strenuous activity, but ambulatory and able to carry out light or sedentary work (e.g. office work, light house work). (ECOG) Constitutional Alert, cooperative, oriented. Mood and affect appropriate. Appears close to chronological age. Well nourished. Well developed. Head Normocephalic; no scars. Respiratory Lungs are clear to auscultation without rhonchi or wheezing. Cardiovascular Regular rate and rhythm of heart without murmurs, gallops or rubs. Abdomen Non-tender, non-distended, no masses, ascites or hepatosplenomegaly. Good bowel sounds. No guarding or rebound tenderness. Musculoskeletal No tenderness or swelling, normal range of motion without obvious weakness. Psychiatric Alert and oriented times three. Coherent speech. Verbalizes understanding of our discussions today. Laboratory: Test performed on Feb 10, 2022 09:10 Sodium 138 mmol/L Potassium 4.0 mmol/L Chloride 104 mmol/L CO2 24 mmol/L Anion Gap 14.0 BUN 15 mg/dL Creatinine 0.9 mg/dL Cr Clearance (Est) 98.3800 mL/min eGFR 83.9 mL/min Glucose 115 mg/dL Osmolality - Calculated 288 mOsm/kg Calcium 9.0 mg/dL Protein, Total 6.5 g/dL Albumin 4.0 g/dL Globulin 2.5 g/dL Bilirubin, Total 0.6 mg/dL ALT (SGPT) 25 U/L AST (SGOT) 24 U/L Alkaline Phosphatase 87 IU/L WBC 6.1 10 3/uL RBC 4.82 10 6/uL HGB 14.7 g/dL HCT 45.5 % MCV 94.4 fl MCH 30.5 pg MCHC 32.3 g/dL RDW 14.3 % Platelet Count 209 10 3/cmm MPV 10.5 fL Neutrophils 4.36 10 3/uL Lymphocytes 1.0 10 3/uL Monocytes 0.5 10 3/uL Eosinophils 0.1 10 3/uL Basophils 0.0 10 3/uL Neutrophil % 71.8 % Lymphocyte % 16.1 % Monocyte % 8.7 % Eosinophil % 2.0 % Basophils % 0.7 % NRBC % 0 % Test performed on Dec 01, 2021 09:10 CEA 2.5 ng/mL Test performed on Nov 18, 2021 09:38 Ua Color Yellow Ua Appearance Clear Ua Glucose Norm Ua Bilirubin Neg Ua Ketones Negative Ua Specific [place] 1.015 Ua Blood Neg Ua pH 5 Ua Protein Neg Ua Nitrites Negative Ua Leukocyte Esterase Negative Test performed on Oct 05, 2021 08:30 Ua Urobilinogen 1 mg/dL Test performed on Sep 09, 2021 09:50 Ua Micro: WBC RARE /hpf Ua Micro: RBC NONE /hpf Ua Micro: Squam Epith Cells RARE /hpf Ua Micro: Bacteria TRACE /hpf Ua Micro: Mucous 2+ /hpf Impression: 1. Well to moderately differentiated adenocarcinoma of the rectum. He underwent chemoradiation utilizing capecitabine for chemosensitization following initial diagnosis of the rectal cancer in May 2019. 2. He had subsequent disease progression to stage IVC (T3, N2, M1c) with CT evidence of metastatic involvement in the peritoneum and liver. He had associated ascites. CT-directed needle biopsy of a right peritoneal mass on 11/21/2019 confirmed adenocarcinoma consistent with colorectal primary. The tumor was confirmed to be MSI stable and KRAS wild-type. 3. Hypertension. 4. GERD. Plan: Patient with well to moderately differentiated adenocarcinoma of the rectum. He had undergone chemoradiation utilizing capecitabine for chemosensitization following initial diagnosis of the rectal cancer in May 2019. He had subsequent disease progression to stage IVC (T3, N2, M1c) with CT evidence of metastatic involvement in the peritoneum and liver. CT-directed needle biopsy of a right peritoneal mass on 11/21/2019 confirmed adenocarcinoma consistent with colorectal primary. The tumor was confirmed to be MSI stable and KRAS wild-type. In November 2019 began palliative chemotherapy with modified FOLFOX in combination with panitumumab. During treatment he required dose reductions in the chemotherapy due to neuropathy and thrombocytopenia, and he required treatment interruption and subsequent dose reduction in the panitumumab due to severe skin eruption. However, he had a very good clinical response to the treatment. As of April 2020, following completion of 12 cycles of chemotherapy, his treatment was transitioned to panitumumab monotherapy, initially at a dosage of 4 mg/kg by IV infusion every 2 weeks. As of January 2021 the dosage was increased back to 6 mg/kg. At his follow-up visit on 08/18/2021 he reported worsening fatigue and abdominal pain as well as significant worsening of his skin eruption. His treatment was put on hold. Restaging PET/CT on 08/22/2021 showed evidence of progression of hepatic metastatic disease and new involvement in the left periaortic retroperitoneal lymph node. Rectal wall activity was thought to be physiologic, but it did have significant SUV at 8.7, more likely indicative of active primary malignancy. Given those findings, he was recommended to change treatment to FOLFIRI chemotherapy in combination with Avastin. He began cycle 1 of FOLFIRI/Avastin on 09/09/2021. He tolerated it well, and he then continued treatment at 2-week intervals. He has now completed 6 cycles. He has had a very good response with his restaging PET/CT on 11/21/2021 showed no active malignancy. He continued treatment with FOLFIRI/Avastin. He has now completed 8 cycles. His treatment was then delayed 1 week due to symptoms of upper respiratory infection. Associated with had he also had some lower abdominal pain and transient diarrhea. That all seems to have resolved now. Patient presents today for follow-up. Clinically he appears to be tolerating his treatment well with FOLFIRI and Avastin every 2 weeks. He will receive cycle 10 today. He will return in 2 weeks for next treatment and he will follow-up in 4 weeks with CBC and CMP. Signed By: Lizabeth Ya N.P. <<Signature on File>>
== END 2022-02-11 23:59 | disposition home or self-care (01) ==
LOC: ONCMED 08:52
PROVIDERS: Nurse Practitioner Family; PCP Family Medicine; Visit Provider Internal Medicine Medical Oncology
DX: Z51.11 Encounter for antineoplastic chemotherapy (principal); C20 Malignant neoplasm of rectum; C78.7 Secondary malignant neoplasm of liver and intrahepatic bile duct; C78.5 Secondary malignant neoplasm of large intestine and rectum; R18.0 Malignant ascites; I10 Essential (primary) hypertension; K21.9 Gastro-esophageal reflux disease without esophagitis; Z79.899 Other long term (current) drug therapy
CPT/HCPCS: 80053; 85025; 96367; 96368; 96375; 96413; 96416; 96417; 99215; J0461; J0640; J1100; J2469; J9035; J9190; J9206

== ENCOUNTER 2022-03-09 06:43 | Outpatient (RCR) | payer MEDICARE, OTHER, SELFPAY ==
[2022-02-24 08:37] LABS: Basophils % 0.5 %; Eosinophils # 0.2 10^3/uL (0.0-0.8); Eosinophils % 3.5 %; Hematocrit 42.4 % (42.0-52.0); Hemoglobin 13.9 g/dL (11.7-16.6); Lymphocytes # 0.8 10^3/uL (0.8-4.8); Lymphocytes % 19.1 %; Mean Corpuscular HGB Conc 32.8 g/dL (30.0-36.0); Mean Corpuscular Hemoglobin 30.2 pg (28.0-34.0); Mean Platelet Volume 11.2 fL (7.4-10.4); Monocytes # 0.5 10^3/uL (0.2-0.9); Monocytes % 11.3 %; Neutrophils # 2.77 10^3/uL (1.8-7.7); Neutrophils % 65.4 %; Nucleated Red Blood Cells % 0 %; Platelet Count 161 10^3/cmm (130-400); Red Blood Count 4.61 10^6/uL (4.1-5.3); Red Cell Distribution Width 14.7 % (12.1-15.1); White Blood Count 4.2 10^3/uL (4.0-10.0)
[2022-02-24 08:41] LABS: Alanine Aminotransferase 24 U/L (0-41); Albumin Level 4.2 g/dL (3.5-5.2); Alkaline Phosphatase 92 IU/L (40-130); Anion Gap 12.7 (5-19); Aspartate Amino Transferase 21 U/L (0-40); Blood Urea Nitrogen 17 mg/dL (8-23); Calcium 8.9 mg/dL (8.5-10.5); Carbon Dioxide 23 mmol/L (22-29); Chloride 108 mmol/L (98-107); Globulin 1.9 g/dL (1.3-4.6); Glomerular Filtration Rate 83.9 mL/min (90-130); Glucose 102 mg/dL (65-115); Osmolality Calculated 292 mOsm/kg (285-295); Potassium 3.7 mmol/L (3.5-5.1); Sodium 140 mmol/L (136-145); Total Bilirubin 0.9 mg/dL (0.15-1.2); Total Protein 6.1 g/dL (6.6-8.7)
[2022-02-24] MEDS: palonosetron 0.25 mg/5 mL SDV IV (09:15)
[2022-02-24] MEDS: dextrose 5% 250 ML 75 ML IV (09:15)
[2022-03-09 09:43] LABS: Basophils % 0.6 %; Eosinophils # 0.1 10^3/uL (0.0-0.8); Eosinophils % 1.8 %; Hematocrit 44.1 % (42.0-52.0); Hemoglobin 14.4 g/dL (11.7-16.6); Lymphocytes # 0.8 10^3/uL (0.8-4.8); Lymphocytes % 25.5 %; Mean Corpuscular HGB Conc 32.7 g/dL (30.0-36.0); Mean Corpuscular Hemoglobin 29.7 pg (28.0-34.0); Mean Corpuscular Volume 90.9 fl (80-94); Mean Platelet Volume 10.6 fL (7.4-10.4); Monocytes # 0.4 10^3/uL (0.2-0.9); Monocytes % 13.4 %; Neutrophils # 1.93 10^3/uL (1.8-7.7); Neutrophils % 58.7 %; Nucleated Red Blood Cells % 0 %; Platelet Count 190 10^3/cmm (130-400); Red Blood Count 4.85 10^6/uL (4.1-5.3); Red Cell Distribution Width 14.9 % (12.1-15.1); White Blood Count 3.3 10^3/uL (4.0-10.0)
[2022-03-09 10:25] LABS: Alanine Aminotransferase 33 U/L (0-41); Albumin Level 4.2 g/dL (3.5-5.2); Alkaline Phosphatase 93 IU/L (40-130); Anion Gap 15.2 (5-19); Aspartate Amino Transferase 28 U/L (0-40); Blood Urea Nitrogen 10 mg/dL (8-23); Calcium 8.4 mg/dL (8.5-10.5); Carbon Dioxide 24 mmol/L (22-29); Chloride 105 mmol/L (98-107); Glomerular Filtration Rate 83.9 mL/min (90-130); Glucose 104 mg/dL (65-115); Osmolality Calculated 289 mOsm/kg (285-295); Potassium 4.2 mmol/L (3.5-5.1); Sodium 140 mmol/L (136-145); Total Bilirubin 1.2 mg/dL (0.15-1.2); Total Protein 7.2 g/dL (6.6-8.7)
[2022-03-09] MEDS: dextrose 5% 250 ML 50 ML IV (12:29)
[2022-03-09] MEDS: palonosetron 0.25 mg/5 mL SDV IV (12:29)
--- NOTE | 2022-03-09 20:32 | ONC FU_ITS ---
Lizabeth Ya Progress Note Patient: Mick Fritz Unit #: [id number]: 1955 Dicatated By: Lizabeth Ya N.P.Date of Visit:Mar 09, 2022 Onc MED Follow-up/Prog Note Chief Complaint: Rectal cancer. 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 In April 2019 he had been referred to Dr. Altamirano for excision of a skin lesion on his chest. He also was in need of screening colonoscopy. The skin lesion turned out to be a basal cell carcinoma. The colonoscopy showed a pedunculated polyp in the descending colon which was able to be removed endoscopically. Also noted was a malignant appearing mass involving two thirds of the circumference at the first rectal fold. 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 The rectal biopsy showed tubulovillous adenoma with focal high-grade dysplasia. As it was clearly a malignant appearing lesion, he then underwent sigmoidoscopy with a repeat biopsy on 05/15/2019. Pathology at that time was consistent with well to moderately differentiated adenocarcinoma. CT abdomen pelvis showed circumferential perirectal soft tissue thickening consistent with rectal neoplasm. Also noted was left perirectal lymphadenopathy and aortocaval lymphadenopathy consistent with metastatic disease with the largest aortocaval node measuring 2.0 cm and the left perirectal node measuring 2.2 cm. He was referred to Dr. Otto in [place] for further management, and he then undergo neoadjuvant chemoradiation utilizing capecitabine for chemosensitization. He apparently was lost to follow-up there after completing the radiation. He was admitted to [facility] on 10/29/2019 after presenting to the emergency room with abdominal pain and swelling. His CT abdomen/pelvis showed evidence of abundant ascites and omental carcinomatosis. There was abnormal wall thickening and enhancement of the loops of small bowel, possibly reflecting enteritis, but concerning for neoplastic infiltration of the wall of the loops of bowel. An apple core type lesion with marked wall thickening and narrowing was noted in the distal sigmoid colon/rectum. A new ill-defined 2 cm nodule in the dome of the liver was new and suspicious for metastatic disease. On 10/30/2019 he underwent paracentesis with removal of 2000 mL of fluid. The cytology was negative. Dr. Edwards had seen him initially on 11/02/2019. At that point he was still in pretty good performance status. Biopsy was recommended to confirm the histology of his disease, particularly with the pattern of metastatic involvement and the fact that his CEA level was normal. As the liver lesion was not accessible for needle biopsy, he underwent CT directed needle biopsy of a peritoneal mass on 11/21/2019. Pathology has just become available, and it does show metastatic adenocarcinoma, CDX 2 positive, consistent with colonic primary. In the meantime, a next generation sequencing study had been requested on his primary tumor. It showed the tumor to be MSI stable and KRAS wild type. On 11/29/2019 he began cycle 1 of palliative chemotherapy with modified FOLFOX in combination with panitumumab. At that point he had very poor oral intake and very marginal performance status. He required IV fluid support, but he was able to tolerate the treatment without significant acute toxicity. By day 5 he was neutropenic, but he recovered uneventfully with Neupogen. He began to show gradual improvement in his symptoms. He was then able to continue treatment at 2-week intervals with Neulasta administered prophylactically. He began his 6th cycle of treatment on 02/06/2020. At that point he was given a 1 level reduction in the oxaliplatin dosage and a 20% reduction in the 5-FU dosage due to thrombocytopenia. The panitumumab was put on hold due to worsening skin eruption. He continued with his cycle 7 treatment on 02/20/2020. He tolerated it well. With cycle 8, on 03/05/2020, Dr. Edwards restarted the panitumumab at a reduced dosage of 4 mg/kg. Restaging CT of the abdomen/pelvis on 03/14/2020 showed evidence of interval response to therapy with resolution of previously described ascites and omental carcinomatosis. Also noted was resolution of the metastatic lesion in the dome of the liver. There was residual circumferential thickening involving the distal sigmoid colon and rectum. There was no evidence of disease progression. He continued with his 12th cycle of treatment on 04/30/2020. Beginning on 05/13/2020 I opted to drop the chemotherapy and continue with panitumumab monotherapy. Restaging CT scans on 06/20/2020 showed residual thickening involving the distal sigmoid colon and rectum, stable compared to the March 2020 CT and the October 2019 PET/CT. A 2.5 cm hepatic cyst along the undersurface of the right hepatic lobe appeared stable. There was mild diffuse fatty infiltration of the liver. There was no evidence of metastatic disease in the chest, abdomen, or pelvis. Restaging CT scans on 11/21/2020 showed no evidence for metastatic disease in the chest, abdomen, or pelvis. There was stable mild residual thickening involving the distal sigmoid colon and rectum. With those findings, he continued treatment with panitumumab at 2-week intervals. At his follow-up visit on 04/15/2021 he was having some new abdominal pain. He continued his treatment, but he then had restaging CT scans of the chest, abdomen, and pelvis on 04/23/2021. There was mild circumferential wall thickening involving the rectosigmoid, consistent with treated neoplasm and with unchanged appearance from previous studies. There was no evidence of disease progression. He continued treatment with panitumumab. At his follow-up visit on 08/18/2021 he had multiple complaints which included increased abdominal pain and fatigue as well as significant worsening of his skin eruption. I did opt to put his treatment on hold, and he was given empiric treatment with prednisone and doxycycline. Restaging PET/CT on 08/22/2021 showed improvement in the omental implants and resolution of ascites compared to the study from October 2019. There did appear to be progression of hepatic metastatic disease and was also noted to be a new left periaortic retroperitoneal lymph node measuring 2.5 cm with SUV 4.3, consistent with malignancy/progression. New rectal wall activity was felt to be likely physiologic, but recurrence was not excluded, SUV 8.7. With those findings, he was recommended to change treatment to FOLFIRI chemotherapy in combination with Avastin. His other medical illnesses include hypertension and GERD. He has a remote history of smoking a pack of cigarettes daily for about 10 years. He had quit smoking cigarettes sometime in his early 20s, but he has continued smoking a cigar about 3 times a week. INTERIM HISTORY: He began cycle 1 of FOLFIRI/Avastin on 09/09/2021. He tolerated it well, and he then continued treatment at 2-week intervals. As of 11/18/2021 he completed his 6th cycle. Restaging PET/CT on 11/21/2021 showed resolution of multifocal hepatic metastatic disease compared to the prior study from August 2021. The left-sided periaortic retroperitoneal lymph node was noted to be subcentimeter in size and FDG negative and there was resolution of the questionable rectal wall activity. Overall, there was no evidence for active malignancy. With those findings he continued treatment with FOLFIRI/Avastin. As of 12/16/2021 he began his 8th cycle. He opted to delay cycle 9 due to symptoms of upper respiratory infection. Patient presents today for follow-up. He states he has been feeling pretty good. He states he ate something that did not agree with him last night and he had a couple of episodes of diarrhea and abdominal cramping but that has now resolved. His appetite has been good. He denies fever, chills, night sweats. No sinus drainage or mouth sores. No shortness of breath, cough, chest pain. No urinary symptoms. No joint or bone pain. No headaches or dizziness. No numbness or tingling. Review Of Symptoms: See above. Past Medical History: Gastroesophageal reflux disease Hypertension Rectal cancer Past Surgical History: Liver biopsy Tonsillectomy Flu vaccine in 2019 - left deltoid Left side porthacatheter placement dr. altamirano in 2019 Sigmoidoscopy with biopsy of rectal mass in 2019 Colonoscopy in 2019 Excision of basal cell skin cancer in 2019 Allergies: No Known Allergies. Medications: HYDROcodone-Acetaminophen 1 (10-325 mg) Tablet Oral q 4 hours PRN PriLOSEC OTC 1 Tablet (of 20 mg) Tablet, enteric coated Oral daily Family History: Mr. Fritz's mother is alive. Mr. Fritz's father at age 92: heart disease, and type II diabetes. Mr. Fritz has 1 brother who is alive. He has 1 sister who is alive. Mother still living at age 89. Father with heart disease at age 92. He also had diabetes. A maternal aunt had breast cancer. His maternal grandfather had lung cancer. Social History: Mr. 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 Mr. Fritz quit smoking 48 years ago but had smoked 1.0 pack/day for 12 years. He quit drinking less than one year ago. He has indicated exposure to the following products: cigars. Mr. Fritz reports the following support systems: lives with spouse, significant other, family, or friends and adequate transportation available for expected visits. His diet consists of regular meals. He indicates his activity level as: light exercise. 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 He has a history of smoking 1 pack of cigarettes daily for 10 years, but he had quit by sometime in his early 20s. He smokes a cigar about 3 times a week. Alcohol use averages 2 beers 3 days a week. Physical Examination: Performed on Mar 09, 2022 11:54: Height - 70.00 in, Weight - 191.8 lbs, BSA - 2.05 sq.m, BMI - 27.52, Temperature - 98.2 F (LOW), Pulse - 68 /min, Respiration - 18 /min, BP - 158/89 mm(hg) (HIGH), O2 Sat - 98 %, Pain - 2, and Fatigue - 2. Performance Status: 1 - No physically strenuous activity, but ambulatory and able to carry out light or sedentary work (e.g. office work, light house work). (ECOG) Constitutional Alert, cooperative, oriented. Mood and affect appropriate. Appears close to chronological age. Well nourished. Well developed. Head Normocephalic; no scars. Respiratory Lungs are clear to auscultation without rhonchi or wheezing. Cardiovascular Regular rate and rhythm of heart without murmurs, gallops or rubs. Abdomen Non-tender, non-distended, no masses, ascites or hepatosplenomegaly. Good bowel sounds. No guarding or rebound tenderness. Extremities No visible deformities, no cyanosis, clubbing or edema. Pulses 3+ and equal bilaterally. Musculoskeletal No tenderness or swelling, normal range of motion without obvious weakness. Psychiatric Alert and oriented times three. Coherent speech. Verbalizes understanding of our discussions today. Laboratory: Test performed on Mar 09, 2022 09:30 Sodium 140 mmol/L Potassium 4.2 mmol/L Chloride 105 mmol/L CO2 24 mmol/L Anion Gap 15.2 BUN 10 mg/dL Creatinine 0.9 mg/dL Cr Clearance (Est) 98.3800 mL/min eGFR 83.9 mL/min Glucose 104 mg/dL Osmolality - Calculated 289 mOsm/kg Calcium 8.4 mg/dL Protein, Total 7.2 g/dL Albumin 4.2 g/dL Globulin 3.0 g/dL Bilirubin, Total 1.2 mg/dL ALT (SGPT) 33 U/L AST (SGOT) 28 U/L Alkaline Phosphatase 93 IU/L WBC 3.3 10 3/uL RBC 4.85 10 6/uL HGB 14.4 g/dL HCT 44.1 % MCV 90.9 fl MCH 29.7 pg MCHC 32.7 g/dL RDW 14.9 % Platelet Count 190 10 3/cmm MPV 10.6 fL Neutrophils 1.93 10 3/uL Lymphocytes 0.8 10 3/uL Monocytes 0.4 10 3/uL Eosinophils 0.1 10 3/uL Basophils 0.0 10 3/uL Neutrophil % 58.7 % Lymphocyte % 25.5 % Monocyte % 13.4 % Eosinophil % 1.8 % Basophils % 0.6 % NRBC % 0 % Test performed on Dec 01, 2021 09:10 CEA 2.5 ng/mL Test performed on Nov 18, 2021 09:38 Ua Color Yellow Ua Appearance Clear Ua Glucose Norm Ua Bilirubin Neg Ua Ketones Negative Ua Specific Sevier 1.015 Ua Blood Neg Ua pH 5 Ua Protein Neg Ua Nitrites Negative Ua Leukocyte Esterase Negative Test performed on Oct 05, 2021 08:30 Ua Urobilinogen 1 mg/dL Impression: 1. Well to moderately differentiated adenocarcinoma of the rectum. He underwent chemoradiation utilizing capecitabine for chemosensitization following initial diagnosis of the rectal cancer in May 2019. 2. He had subsequent disease progression to stage IVC (T3, N2, M1c) with CT evidence of metastatic involvement in the peritoneum and liver. He had associated ascites. CT-directed needle biopsy of a right peritoneal mass on 11/21/2019 confirmed adenocarcinoma consistent with colorectal primary. The tumor was confirmed to be MSI stable and KRAS wild-type. 3. Hypertension. 4. GERD. Plan: Patient with well to moderately differentiated adenocarcinoma of the rectum. He had undergone chemoradiation utilizing capecitabine for chemosensitization following initial diagnosis of the rectal cancer in May 2019. He had subsequent disease progression to stage IVC (T3, N2, M1c) with CT evidence of metastatic involvement in the peritoneum and liver. CT-directed needle biopsy of a right peritoneal mass on 11/21/2019 confirmed adenocarcinoma consistent with colorectal primary. The tumor was confirmed to be MSI stable and KRAS wild-type. In November 2019 began palliative chemotherapy with modified FOLFOX in combination with panitumumab. During treatment he required dose reductions in the chemotherapy due to neuropathy and thrombocytopenia, and he required treatment interruption and subsequent dose reduction in the panitumumab due to severe skin eruption. However, he had a very good clinical response to the treatment. As of April 2020, following completion of 12 cycles of chemotherapy, his treatment was transitioned to panitumumab monotherapy, initially at a dosage of 4 mg/kg by IV infusion every 2 weeks. As of January 2021 the dosage was increased back to 6 mg/kg. At his follow-up visit on 08/18/2021 he reported worsening fatigue and abdominal pain as well as significant worsening of his skin eruption. His treatment was put on hold. Restaging PET/CT on 08/22/2021 showed evidence of progression of hepatic metastatic disease and new involvement in the left periaortic retroperitoneal lymph node. Rectal wall activity was thought to be physiologic, but it did have significant SUV at 8.7, more likely indicative of active primary malignancy. Given those findings, he was recommended to change treatment to FOLFIRI chemotherapy in combination with Avastin. He began cycle 1 of FOLFIRI/Avastin on 09/09/2021. He tolerated it well, and he then continued treatment at 2-week intervals. He has now completed 6 cycles. He has had a very good response with his restaging PET/CT on 11/21/2021 showed no active malignancy. He continued treatment with FOLFIRI/Avastin. He has now completed 8 cycles. His treatment was then delayed 1 week due to symptoms of upper respiratory infection. Associated with had he also had some lower abdominal pain and transient diarrhea. That all seems to have resolved now. Patient presents today for follow-up. Patient had diarrhea x2 episodes and mild abdominal cramping last night but that has now resolved. Clinically he appears to be tolerating his treatment well with FOLFIRI and Avastin every 2 weeks. He will receive cycle 12 today. He will return in 2 weeks for next treatment and he will follow-up in 4 weeks with CBC and CMP. Signed By: Lizabeth Ya N.P. <<Signature on File>>
== END 2022-03-13 23:59 | disposition home or self-care (01) ==
LOC: ONCMED 06:43
PROVIDERS: Internal Medicine Medical Oncology; PCP Family Medicine; Visit Provider Nurse Practitioner Family
DX: Z51.11 Encounter for antineoplastic chemotherapy (principal); C20 Malignant neoplasm of rectum; C78.6 Secondary malignant neoplasm of retroperitoneum and peritoneum; C78.7 Secondary malignant neoplasm of liver and intrahepatic bile duct; R18.0 Malignant ascites; G62.0 Drug-induced polyneuropathy; D70.1 Agranulocytosis secondary to cancer chemotherapy; L27.1 Localized skin eruption due to drugs and medicaments taken internally; T45.1X5A Adverse effect of antineoplastic and immunosuppressive drugs, initial encounter; R19.7 Diarrhea, unspecified; Z79.899 Other long term (current) drug therapy
CPT/HCPCS: 80053; 85025; 96367; 96368; 96375; 96413; 96415; 96416; 96417; 96523; 99215; J0461; J0640; J1100; J2469; J9035; J9190; J9206; Q5107

== ENCOUNTER 2022-04-13 08:30 | Oncology outpatient (recurring) (ONCR) | payer MEDICARE, OTHER, SELFPAY ==
[2022-03-23 08:19] LABS: Basophils % 0.7 %; Eosinophils # 0.1 10^3/uL (0.0-0.8); Eosinophils % 2.4 %; Hematocrit 43.3 % (42.0-52.0); Hemoglobin 14.1 g/dL (11.7-16.6); Lymphocytes # 0.8 10^3/uL (0.8-4.8); Lymphocytes % 28.2 %; Mean Corpuscular HGB Conc 32.6 g/dL (30.0-36.0); Mean Corpuscular Hemoglobin 29.9 pg (28.0-34.0); Mean Corpuscular Volume 91.9 fl (80-94); Monocytes # 0.4 10^3/uL (0.2-0.9); Monocytes % 14.4 %; Neutrophils # 1.56 10^3/uL (1.8-7.7); Neutrophils % 53.6 %; Nucleated Red Blood Cells % 0 %; Platelet Count 163 10^3/cmm (130-400); Red Blood Count 4.71 10^6/uL (4.1-5.3); Red Cell Distribution Width 16.1 % (12.1-15.1); White Blood Count 2.9 10^3/uL (4.0-10.0)
[2022-03-23 08:37] LABS: Alanine Aminotransferase 34 U/L (0-41); Alkaline Phosphatase 88 IU/L (40-130); Aspartate Amino Transferase 29 U/L (0-40); Blood Urea Nitrogen 16 mg/dL (8-23); Calcium 9.2 mg/dL (8.5-10.5); Carbon Dioxide 24 mmol/L (22-29); Chloride 106 mmol/L (98-107); Globulin 2.8 g/dL (1.3-4.6); Glomerular Filtration Rate 83.9 mL/min (90-130); Glucose 110 mg/dL (65-115); Osmolality Calculated 292 mOsm/kg (285-295); Sodium 140 mmol/L (136-145); Total Bilirubin 0.9 mg/dL (0.15-1.2); Total Protein 6.8 g/dL (6.6-8.7)
[2022-03-30 08:41] LABS: Basophils % 0.8 %; Eosinophils # 0.1 10^3/uL (0.0-0.8); Eosinophils % 2.5 %; Hematocrit 46.5 % (42.0-52.0); Hemoglobin 15.1 g/dL (11.7-16.6); Lymphocytes # 0.9 10^3/uL (0.8-4.8); Lymphocytes % 24.1 %; Mean Corpuscular HGB Conc 32.5 g/dL (30.0-36.0); Mean Corpuscular Hemoglobin 30.2 pg (28.0-34.0); Mean Platelet Volume 11.4 fL (7.4-10.4); Monocytes # 0.5 10^3/uL (0.2-0.9); Monocytes % 14.8 %; Neutrophils # 2.08 10^3/uL (1.8-7.7); Nucleated Red Blood Cells % 0 %; Platelet Count 197 10^3/cmm (130-400); White Blood Count 3.7 10^3/uL (4.0-10.0)
[2022-03-30] MEDS: dextrose 5% 250 ML 75 ML IV (10:14)
[2022-03-30] MEDS: palonosetron 0.25 mg/5 mL SDV IVP (10:15)
[2022-03-30] MEDS: atropine 1 mg/mL SDV 1 mL 0.4 MG IV (10:17)
[2022-03-30] MEDS: leucovorin 840 MG in dextrose 5% 250 ML 222.67 MG IV (10:44)
[2022-03-30] MEDS: irinotecan 300 MG in dextrose 5% 250 ML 176.67 MG IV (10:45)
[2022-03-30] MEDS: fluorouraciL 4,050 MG, elastomeric pump 1 PUMP in sodium chloride 0.9% (100 ml) 11 ML IV (12:55)
[2022-03-30 13:00] VITALS: BP 152/91; PULSE 59; RESP 16; TEMP 36.1; O2SAT 93
[2022-04-01] MEDS: pegfilgrastim-bmez 6 mg/0.6 mL SYR SUBCUT (10:34)
[2022-04-06 09:17] LABS: Basophils % 0.2 %; Eosinophils # 0.2 10^3/uL (0.0-0.8); Eosinophils % 1.6 %; Hemoglobin 14.9 g/dL (11.7-16.6); Lymphocytes # 1.2 10^3/uL (0.8-4.8); Lymphocytes % 11.8 %; Mean Corpuscular HGB Conc 33.1 g/dL (30.0-36.0); Mean Corpuscular Hemoglobin 30.1 pg (28.0-34.0); Mean Corpuscular Volume 90.9 fl (80-94); Mean Platelet Volume 10.5 fL (7.4-10.4); Monocytes # 1.2 10^3/uL (0.2-0.9); Monocytes % 11.3 %; Neutrophils # 7.71 10^3/uL (1.8-7.7); Neutrophils % 73.7 %; Nucleated Red Blood Cells % 0 %; Platelet Count 134 10^3/cmm (130-400); Red Blood Count 4.95 10^6/uL (4.1-5.3); Red Cell Distribution Width 16.6 % (12.1-15.1); White Blood Count 10.5 10^3/uL (4.0-10.0)
[2022-04-06 09:28] LABS: Bilirubin Urine Neg (Negative); Glucose Urine UA Norm (Normal); Ketones Urine Negative (Negative); Nitrate Urine Negative (Negative); Protein Urine Neg (Negative); Urine Appearance Clear (CLEAR); Urine Color Yellow (Yellow); Urobilinogen Urine Norm (Negative); pH Urine 5 (5-7)
[2022-04-06 09:29] LABS: Add Urine Microscopic? YES; Blood Urine 2+ (Negative); Leukocyte Esterase Urine Negative (Negative); RBC Urine 0-4 /hpf (0-2); Squamous Epithelial Cell Urine 0-4 /hpf (0-5); WBC Urine 0-4 /hpf (0-5)
[2022-04-06 09:30] LABS: Add Urine Culture? No; Mucus Urine 3+ /hpf
[2022-04-06 09:34] LABS: Alanine Aminotransferase 33 U/L (0-41); Albumin Level 4.3 g/dL (3.5-5.2); Alkaline Phosphatase 146 IU/L (40-130); Anion Gap 13.9 (5-19); Aspartate Amino Transferase 21 U/L (0-40); Blood Urea Nitrogen 12 mg/dL (8-23); Calcium 8.6 mg/dL (8.5-10.5); Carbon Dioxide 25 mmol/L (22-29); Chloride 105 mmol/L (98-107); Globulin 2.5 g/dL (1.3-4.6); Glomerular Filtration Rate 96.1 mL/min (90-130); Glucose 99 mg/dL (65-115); Osmolality Calculated 290 mOsm/kg (285-295); Potassium 3.9 mmol/L (3.5-5.1); Sodium 140 mmol/L (136-145); Total Bilirubin 0.6 mg/dL (0.15-1.2); Total Protein 6.8 g/dL (6.6-8.7)
[2022-04-06 10:41] LABS: Slide Review Slide Review Perform
[2022-04-13 08:20] LABS: Add Urine Microscopic? NO; Charge for UA Resulting for Rev
[2022-04-13 09:08] LABS: Basophils % 0.7 %; Eosinophils # 0.2 10^3/uL (0.0-0.8); Eosinophils % 2.7 %; Lymphocytes % 11.1 %; Mean Corpuscular HGB Conc 32.7 g/dL (30.0-36.0); Mean Corpuscular Hemoglobin 30.2 pg (28.0-34.0); Mean Corpuscular Volume 92.4 fl (80-94); Mean Platelet Volume 11.7 fL (7.4-10.4); Monocytes % 6.3 %; Neutrophils # 6.93 10^3/uL (1.8-7.7); Neutrophils % 78.4 %; Platelet Count 132 10^3/cmm (130-400); Red Blood Count 4.87 10^6/uL (4.1-5.3); Red Cell Distribution Width 18.1 % (12.1-15.1); White Blood Count 8.8 10^3/uL (4.0-10.0)
[2022-04-13 09:12] LABS: Alanine Aminotransferase 27 U/L (0-41); Albumin Level 4.1 g/dL (3.5-5.2); Alkaline Phosphatase 137 IU/L (40-130); Anion Gap 14.8 (5-19); Aspartate Amino Transferase 22 U/L (0-40); Blood Urea Nitrogen 15 mg/dL (8-23); Calcium 8.6 mg/dL (8.5-10.5); Carbon Dioxide 24 mmol/L (22-29); Chloride 106 mmol/L (98-107); Globulin 2.5 g/dL (1.3-4.6); Glomerular Filtration Rate 74.3 mL/min (90-130); Glucose 132 mg/dL (65-115); Osmolality Calculated 295 mOsm/kg (285-295); Potassium 3.8 mmol/L (3.5-5.1); Sodium 141 mmol/L (136-145); Total Bilirubin 0.9 mg/dL (0.15-1.2); Total Protein 6.6 g/dL (6.6-8.7)
[2022-04-13 09:20] LABS: Blood Urine Neg (Negative); Glucose Urine UA Norm (Normal); Ketones Urine Negative (Negative); Nitrate Urine Negative (Negative); Protein Urine Neg (Negative); Urine Appearance Clear (CLEAR); Urine Color Yellow (Yellow); pH Urine 5 (5-7)
[2022-04-13 09:21] LABS: Bilirubin Urine 1+ (Negative); Leukocyte Esterase Urine Negative (Negative); Urobilinogen Urine Norm (Negative)
[2022-04-13 10:10] LABS: Add RBC Morph No
[2022-04-13 10:11] LABS: Slide Review Slide Review Perform
[2022-04-13] MEDS: palonosetron 0.25 mg/5 mL SDV IVP (10:19)
[2022-04-13] MEDS: dextrose 5% 250 ML 75 ML IV (10:19)
[2022-04-13] MEDS: atropine 1 mg/mL SDV 1 mL 0.4 MG IV (10:20)
[2022-04-13] MEDS: leucovorin 840 MG in dextrose 5% 250 ML 222.67 MG IV (10:41)
[2022-04-13] MEDS: irinotecan 300 MG in dextrose 5% 250 ML 176.67 MG IV (10:42)
[2022-04-13 13:30] VITALS: BP 155/89; PULSE 62; RESP 16; TEMP 35.7; O2SAT 98
[2022-04-13] MEDS: fluorouraciL 4,050 MG, elastomeric pump 1 PUMP in sodium chloride 0.9% (100 ml) 11 ML IV (13:30)
[2022-04-13 14:25] LABS: Basophils # 0.1 10^3/uL (0.0-0.1); Hemoglobin 14.7 g/dL (11.7-16.6); Monocytes # 0.6 10^3/uL (0.2-0.9); Nucleated Red Blood Cells % 0 %
== END 2022-04-13 23:59 | disposition home or self-care (01) ==
PROVIDERS: Nurse Practitioner Family; PCP Family Medicine; Visit Provider Internal Medicine Medical Oncology
DX: Z51.11 Encounter for antineoplastic chemotherapy (principal); C20 Malignant neoplasm of rectum
CPT/HCPCS: 36591; 80053; 81001; 81003; 85025; 96367; 96368; 96372; 96375; 96413; 96415; 96416; 96417; 96523; 99214; 99999; J0461; J0640; J1100; J2469; J9190; J9206; Q5107; Q5120

== ENCOUNTER 2022-04-27 08:09 | Oncology outpatient (recurring) (ONCR) | payer MEDICARE, OTHER, SELFPAY | END 2022-05-11 09:44 | disposition home or self-care (01) | PROVIDERS: PCP Family Medicine; Visit Provider Internal Medicine Medical Oncology | DX: C78.6 Secondary malignant neoplasm of retroperitoneum and peritoneum (principal); C20 Malignant neoplasm of rectum | CPT/HCPCS: 99214 ==

== ENCOUNTER 2022-05-11 08:00 | Oncology outpatient (recurring) (ONCR) | payer MEDICARE, OTHER, SELFPAY ==
[2022-04-15 14:45] VITALS: BP 150/100; PULSE 87; RESP 18; TEMP 36.6; O2SAT 97
[2022-04-27 08:05] LABS: Add Urine Microscopic? NO; Charge for UA Resulting for Rev
[2022-04-27 08:36] LABS: Basophils % 0.4 %; Eosinophils # 0.3 10^3/uL (0.0-0.8); Hematocrit 41.8 % (42.0-52.0); Lymphocytes # 0.7 10^3/uL (0.8-4.8); Lymphocytes % 14.4 %; Mean Corpuscular HGB Conc 33.5 g/dL (30.0-36.0); Mean Corpuscular Hemoglobin 30.2 pg (28.0-34.0); Mean Corpuscular Volume 90.1 fl (80-94); Mean Platelet Volume 10.5 fL (7.4-10.4); Monocytes # 0.7 10^3/uL (0.2-0.9); Neutrophils # 2.97 10^3/uL (1.8-7.7); Neutrophils % 63.8 %; Nucleated Red Blood Cells % 0 %; Platelet Count 211 10^3/cmm (130-400); Red Blood Count 4.64 10^6/uL (4.1-5.3); Red Cell Distribution Width 17.2 % (12.1-15.1); White Blood Count 4.7 10^3/uL (4.0-10.0)
[2022-04-27 08:40] LABS: Bilirubin Urine Neg (Negative); Blood Urine Neg (Negative); Glucose Urine UA Norm (Normal); Ketones Urine Negative (Negative); Leukocyte Esterase Urine Negative (Negative); Nitrate Urine Negative (Negative); Protein Urine Neg (Negative); Urine Appearance Clear (CLEAR); Urine Color Yellow (Yellow); Urobilinogen Urine Norm (Negative); pH Urine 5 (5-7)
[2022-04-27 08:59] LABS: Alanine Aminotransferase 28 U/L (0-41); Albumin Level 4.3 g/dL (3.5-5.2); Alkaline Phosphatase 116 IU/L (40-130); Anion Gap 12.1 (5-19); Aspartate Amino Transferase 21 U/L (0-40); Blood Urea Nitrogen 16 mg/dL (8-23); Calcium 8.7 mg/dL (8.5-10.5); Carbon Dioxide 27 mmol/L (22-29); Chloride 104 mmol/L (98-107); Globulin 2.4 g/dL (1.3-4.6); Glomerular Filtration Rate 74.3 mL/min (90-130); Glucose 122 mg/dL (65-115); Osmolality Calculated 290 mOsm/kg (285-295); Potassium 4.1 mmol/L (3.5-5.1); Sodium 139 mmol/L (136-145); Total Bilirubin 1.1 mg/dL (0.15-1.2); Total Protein 6.7 g/dL (6.6-8.7)
[2022-04-27] MEDS: dextrose 5% 250 ML 75 ML IV (10:54)
[2022-04-27] MEDS: palonosetron 0.25 mg/5 mL SDV IVP (10:55)
[2022-04-27] MEDS: atropine 1 mg/mL SDV 1 mL 0.4 MG IV (10:55)
[2022-04-27] MEDS: irinotecan 300 MG in dextrose 5% 250 ML 176.67 MG IV (11:21)
[2022-04-27] MEDS: leucovorin 840 MG in dextrose 5% 250 ML 222.67 MG IV (11:22)
[2022-04-27] MEDS: fluorouraciL 4,050 MG, elastomeric pump 1 PUMP in sodium chloride 0.9% (100 ml) 11 ML IV (13:39)
[2022-04-29 12:27] VITALS: BP 150/84; PULSE 78; RESP 18; TEMP 37.1; O2SAT 98
[2022-05-11 08:34] LABS: Basophils % 0.5 %; Eosinophils # 0.2 10^3/uL (0.0-0.8); Eosinophils % 4.2 %; Hematocrit 45.6 % (42.0-52.0); Hemoglobin 15.4 g/dL (11.7-16.6); Lymphocytes # 0.5 10^3/uL (0.8-4.8); Lymphocytes % 8.5 %; Mean Corpuscular HGB Conc 33.8 g/dL (30.0-36.0); Mean Corpuscular Hemoglobin 29.8 pg (28.0-34.0); Mean Corpuscular Volume 88.2 fl (80-94); Mean Platelet Volume 10.4 fL (7.4-10.4); Monocytes # 0.8 10^3/uL (0.2-0.9); Monocytes % 14.1 %; Neutrophils # 4.16 10^3/uL (1.8-7.7); Neutrophils % 72.2 %; Nucleated Red Blood Cells % 0 %; Platelet Count 141 10^3/cmm (130-400); Red Blood Count 5.17 10^6/uL (4.1-5.3); Red Cell Distribution Width 17.4 % (12.1-15.1); White Blood Count 5.8 10^3/uL (4.0-10.0)
[2022-05-11 08:59] LABS: Alanine Aminotransferase 40 U/L (0-41); Albumin Level 4.3 g/dL (3.5-5.2); Alkaline Phosphatase 117 IU/L (40-130); Anion Gap 15.1 (5-19); Aspartate Amino Transferase 30 U/L (0-40); Blood Urea Nitrogen 15 mg/dL (8-23); Calcium 9.3 mg/dL (8.5-10.5); Carbon Dioxide 26 mmol/L (22-29); Chloride 100 mmol/L (98-107); Globulin 2.6 g/dL (1.3-4.6); Glomerular Filtration Rate 83.9 mL/min (90-130); Glucose 147 mg/dL (65-115); Osmolality Calculated 288 mOsm/kg (285-295); Potassium 4.1 mmol/L (3.5-5.1); Sodium 137 mmol/L (136-145); Total Bilirubin 1.9 mg/dL (0.15-1.2); Total Protein 6.9 g/dL (6.6-8.7)
[2022-05-11 10:34] LABS: SARS Covid-2 Antigen Negative (Negative)
--- NOTE | 2022-05-11 11:25 | PC.NURSE ---
Informed pt and Rhiannon Ya PROSTHODONTIST of negative covid test. Pt voiced understanding and ask no questions at this time/lc
== END 2022-05-13 23:59 | disposition home or self-care (01) ==
PROVIDERS: Nurse Practitioner Family; PCP Family Medicine; Visit Provider Internal Medicine Medical Oncology
DX: C20 Malignant neoplasm of rectum (principal); C78.6 Secondary malignant neoplasm of retroperitoneum and peritoneum; R17 Unspecified jaundice; Z20.822 Contact with and (suspected) exposure to COVID-19
CPT/HCPCS: 36591; 36593; 80053; 81003; 85025; 87426; 96367; 96368; 96375; 96413; 96415; 96416; 96417; 96523; 99214; J0461; J0640; J1100; J2469; J9190; J9206; Q5107

== ENCOUNTER 2022-06-10 12:00 | Oncology outpatient (recurring) (ONCR) | payer MEDICARE, OTHER, SELFPAY ==
[2022-05-25 08:12] LABS: Basophils # 0.1 10^3/uL (0.0-0.1); Basophils % 0.7 %; Eosinophils # 0.2 10^3/uL (0.0-0.8); Eosinophils % 2.7 %; Hematocrit 46.4 % (42.0-52.0); Hemoglobin 15.4 g/dL (11.7-16.6); Lymphocytes # 1.2 10^3/uL (0.8-4.8); Lymphocytes % 17.4 %; Mean Corpuscular HGB Conc 33.2 g/dL (30.0-36.0); Mean Corpuscular Hemoglobin 29.6 pg (28.0-34.0); Mean Corpuscular Volume 89.2 fl (80-94); Mean Platelet Volume 9.5 fL (7.4-10.4); Monocytes # 0.7 10^3/uL (0.2-0.9); Monocytes % 9.7 %; Neutrophils # 4.67 10^3/uL (1.8-7.7); Neutrophils % 68.8 %; Nucleated Red Blood Cells % 0 %; Platelet Count 239 10^3/cmm (130-400); Red Cell Distribution Width 16.6 % (12.1-15.1); White Blood Count 6.8 10^3/uL (4.0-10.0)
[2022-05-25 08:51] LABS: Alanine Aminotransferase 30 U/L (0-41); Albumin Level 4.3 g/dL (3.5-5.2); Alkaline Phosphatase 104 IU/L (40-130); Aspartate Amino Transferase 34 U/L (0-40); Blood Urea Nitrogen 16 mg/dL (8-23); Calcium 8.8 mg/dL (8.5-10.5); Carbon Dioxide 26 mmol/L (22-29); Chloride 104 mmol/L (98-107); Globulin 3.2 g/dL (1.3-4.6); Glomerular Filtration Rate 66.6 mL/min (90-130); Glucose 101 mg/dL (65-115); Osmolality Calculated 291 mOsm/kg (285-295); Sodium 140 mmol/L (136-145); Total Bilirubin 0.6 mg/dL (0.15-1.2); Total Protein 7.5 g/dL (6.6-8.7)
[2022-05-25 08:52] LABS: Anion Gap 14.9 (5-19); Potassium 4.9 mmol/L (3.5-5.1)
[2022-05-25] MEDS: dextrose 5% 250 ML 75 ML IV (11:10)
[2022-05-25] MEDS: atropine 1 mg/mL SDV 1 mL 0.4 MG IV (11:10)
[2022-05-25] MEDS: palonosetron 0.25 mg/5 mL SDV IVP (11:11)
[2022-05-25] MEDS: leucovorin 840 MG in dextrose 5% 250 ML 222.67 MG IV (12:17)
[2022-05-25] MEDS: irinotecan 300 MG in dextrose 5% 250 ML 176.67 MG IV (12:17)
[2022-05-25] MEDS: fluorouraciL 4,050 MG, elastomeric pump 1 PUMP in sodium chloride 0.9% (100 ml) 11 ML IV (13:57)
[2022-05-25 14:02] VITALS: BP 134/86; PULSE 55; RESP 16; TEMP 36.4; O2SAT 99
[2022-05-27 13:37] VITALS: BP 122/86; PULSE 74; RESP 18; TEMP 36.4; O2SAT 97
[2022-06-08 09:20] LABS: Basophils % 0.7 %; Eosinophils # 0.1 10^3/uL (0.0-0.8); Eosinophils % 3.4 %; Hematocrit 44.8 % (42.0-52.0); Hemoglobin 14.3 g/dL (11.7-16.6); Lymphocytes # 0.9 10^3/uL (0.8-4.8); Lymphocytes % 22.4 %; Mean Corpuscular HGB Conc 31.9 g/dL (30.0-36.0); Mean Corpuscular Hemoglobin 29.6 pg (28.0-34.0); Mean Corpuscular Volume 92.8 fl (80-94); Mean Platelet Volume 11.5 fL (7.4-10.4); Monocytes # 0.5 10^3/uL (0.2-0.9); Monocytes % 12.5 %; Neutrophils # 2.48 10^3/uL (1.8-7.7); Nucleated Red Blood Cells % 0 %; Platelet Count 158 10^3/cmm (130-400); Red Blood Count 4.83 10^6/uL (4.1-5.3); Red Cell Distribution Width 17.1 % (12.1-15.1); White Blood Count 4.1 10^3/uL (4.0-10.0)
[2022-06-08 09:35] LABS: Alanine Aminotransferase 31 U/L (0-41); Albumin Level 4.5 g/dL (3.5-5.2); Alkaline Phosphatase 96 IU/L (40-130); Anion Gap 14.1 (5-19); Aspartate Amino Transferase 25 U/L (0-40); Blood Urea Nitrogen 17 mg/dL (8-23); Calcium 8.9 mg/dL (8.5-10.5); Carbon Dioxide 25 mmol/L (22-29); Chloride 104 mmol/L (98-107); Globulin 2.3 g/dL (1.3-4.6); Glomerular Filtration Rate 83.9 mL/min (90-130); Glucose 101 mg/dL (65-115); Osmolality Calculated 290 mOsm/kg (285-295); Potassium 4.1 mmol/L (3.5-5.1); Sodium 139 mmol/L (136-145); Total Bilirubin 1.2 mg/dL (0.15-1.2); Total Protein 6.8 g/dL (6.6-8.7)
[2022-06-08] MEDS: dextrose 5% 250 ML 100 ML IV (10:05)
[2022-06-08] MEDS: palonosetron 0.25 mg/5 mL SDV IVP (10:06)
[2022-06-08] MEDS: atropine 1 mg/mL SDV 1 mL 0.4 MG IV (11:05)
[2022-06-08] MEDS: irinotecan 300 MG in dextrose 5% 250 ML 176.67 MG IV (11:17)
[2022-06-08] MEDS: leucovorin 840 MG in dextrose 5% 250 ML 222.67 MG IV (11:18)
[2022-06-08] MEDS: fluorouraciL 4,000 MG, elastomeric pump 1 PUMP in sodium chloride 0.9% (100 ml) 12 ML 2 MG IV (12:58)
== END 2022-06-13 23:59 | disposition home or self-care (01) ==
PROVIDERS: PCP Family Medicine; Visit Provider Internal Medicine Medical Oncology
DX: Z45.2 Encounter for adjustment and management of vascular access device (principal)
CPT/HCPCS: 71046; 80053; 85025; 96367; 96368; 96375; 96413; 96415; 96416; 96417; 96523; 99214; 99215; J0461; J0640; J1100; J2469; J9190; J9206; Q5107

== ENCOUNTER 2022-07-08 11:00 | Oncology outpatient (recurring) (ONCR) | payer MEDICARE, OTHER, SELFPAY ==
[2022-06-22 08:35] LABS: Basophils % 0.6 %; Eosinophils # 0.1 10^3/uL (0.0-0.8); Eosinophils % 2.4 %; Hematocrit 42.5 % (42.0-52.0); Hemoglobin 13.7 g/dL (11.7-16.6); Lymphocytes # 0.7 10^3/uL (0.8-4.8); Lymphocytes % 20.2 %; Mean Corpuscular HGB Conc 32.2 g/dL (30.0-36.0); Mean Corpuscular Hemoglobin 29.6 pg (28.0-34.0); Mean Corpuscular Volume 91.8 fl (80-94); Mean Platelet Volume 10.4 fL (7.4-10.4); Monocytes # 0.4 10^3/uL (0.2-0.9); Monocytes % 11.8 %; Neutrophils # 2.14 10^3/uL (1.8-7.7); Neutrophils % 64.7 %; Nucleated Red Blood Cells % 0 %; Platelet Count 156 10^3/cmm (130-400); Red Blood Count 4.63 10^6/uL (4.1-5.3); Red Cell Distribution Width 16.8 % (12.1-15.1); White Blood Count 3.3 10^3/uL (4.0-10.0)
[2022-06-22 08:44] LABS: Add Urine Microscopic? YES; Bilirubin Urine Neg (Negative); Blood Urine Neg (Negative); Glucose Urine UA Norm (Normal); Ketones Urine Negative (Negative); Leukocyte Esterase Urine 1+ (Negative); Mucus Urine 2+ /hpf; Nitrate Urine Negative (Negative); Protein Urine Neg (Negative); Urine Appearance Clear (CLEAR); Urine Color Yellow (Yellow); Urobilinogen Urine Norm (Negative); pH Urine 5 (5-7)
[2022-06-22 08:45] LABS: RBC Urine 0-4 /hpf (0-2); Squamous Epithelial Cell Urine 0-4 /hpf (0-5)
[2022-06-22 08:46] LABS: Add Urine Culture? No; Bacteria Urine TRACE /hpf
[2022-06-22 08:53] LABS: Alanine Aminotransferase 20 U/L (0-41); Albumin Level 4.1 g/dL (3.5-5.2); Alkaline Phosphatase 72 IU/L (40-130); Anion Gap 13.4 (5-19); Aspartate Amino Transferase 22 U/L (0-40); Blood Urea Nitrogen 15 mg/dL (8-23); Calcium 8.8 mg/dL (8.5-10.5); Carbon Dioxide 27 mmol/L (22-29); Chloride 105 mmol/L (98-107); Globulin 2.4 g/dL (1.3-4.6); Glomerular Filtration Rate 95.8 mL/min (90-130); Glucose 114 mg/dL (65-115); Osmolality Calculated 294 mOsm/kg (285-295); Potassium 4.4 mmol/L (3.5-5.1); Sodium 141 mmol/L (136-145); Total Bilirubin 0.7 mg/dL (0.15-1.2); Total Protein 6.5 g/dL (6.6-8.7)
[2022-06-22] MEDS: dextrose 5% 250 ML 75 ML IV (09:42)
[2022-06-22] MEDS: palonosetron 0.25 mg/5 mL SDV IVP (09:44)
[2022-06-22] MEDS: atropine 1 mg/mL SDV 1 mL 0.4 MG IV (09:45)
[2022-06-22] MEDS: leucovorin 840 MG in dextrose 5% 250 ML 222.67 MG IV (10:52)
[2022-06-22] MEDS: ELASTOMERIC PUMP PUMP IV (12:33)
[2022-06-22] MEDS: FLUOROURACIL IV (12:33)
[2022-06-22] MEDS: SODIUM CHLORIDE IV (12:33)
[2022-06-22 12:35] VITALS: BP 152/88; PULSE 49; RESP 16; TEMP 35.8; O2SAT 99
[2022-06-24 11:40] VITALS: BP 169/89; PULSE 63; RESP 18; TEMP 36.3; O2SAT 99
[2022-07-06 08:28] LABS: Basophils % 0.5 %; Eosinophils # 0.1 10^3/uL (0.0-0.8); Eosinophils % 1.9 %; Hematocrit 41.5 % (42.0-52.0); Hemoglobin 13.6 g/dL (11.7-16.6); Lymphocytes # 0.9 10^3/uL (0.8-4.8); Lymphocytes % 22.8 %; Mean Corpuscular HGB Conc 32.8 g/dL (30.0-36.0); Mean Corpuscular Hemoglobin 29.7 pg (28.0-34.0); Mean Corpuscular Volume 90.6 fl (80-94); Mean Platelet Volume 9.9 fL (7.4-10.4); Monocytes # 0.5 10^3/uL (0.2-0.9); Monocytes % 12.1 %; Neutrophils # 2.33 10^3/uL (1.8-7.7); Neutrophils % 62.4 %; Nucleated Red Blood Cells % 0 %; Platelet Count 159 10^3/cmm (130-400); Red Blood Count 4.58 10^6/uL (4.1-5.3); Red Cell Distribution Width 16.4 % (12.1-15.1); White Blood Count 3.7 10^3/uL (4.0-10.0)
[2022-07-06 08:34] VITALS: BMI 26.9
[2022-07-06 08:50] LABS: Alanine Aminotransferase 31 U/L (0-41); Albumin Level 4.1 g/dL (3.5-5.2); Alkaline Phosphatase 78 U/L (40-130); Anion Gap 12.9 (5-19); Aspartate Amino Transferase 24 U/L (0-40); Blood Urea Nitrogen 12 mg/dL (8-23); Calcium 8.4 mg/dL (8.5-10.5); Carbon Dioxide 27 mmol/L (22-29); Chloride 105 mmol/L (98-107); Globulin 2.6 g/dL (1.3-4.6); Glomerular Filtration Rate 83.7 mL/min (90-130); Glucose 110 mg/dL (65-115); Osmolality Calculated 292 mOsm/kg (285-295); Potassium 3.9 mmol/L (3.5-5.1); Sodium 141 mmol/L (136-145); Total Bilirubin 0.8 mg/dL (0.15-1.2); Total Protein 6.7 g/dL (6.6-8.7)
[2022-07-06] MEDS: palonosetron 0.25 mg/5 mL SDV IVP (10:42)
[2022-07-06] MEDS: sodium chloride 0.9% 250 ML 75 ML IV (11:07)
[2022-07-06] MEDS: leucovorin 840 MG in dextrose 5% 250 ML 222.67 MG IV (11:42)
[2022-07-06] MEDS: atropine 1 mg/mL SDV 1 mL 0.4 MG IV (11:48)
[2022-07-06] MEDS: ELASTOMERIC PUMP PUMP IV (13:19)
[2022-07-06] MEDS: FLUOROURACIL IV (13:19)
[2022-07-06] MEDS: SODIUM CHLORIDE IV (13:19)
[2022-07-06 13:24] VITALS: BP 154/93; PULSE 54; RESP 16; TEMP 36.6; O2SAT 97
== END 2022-07-14 23:59 | disposition home or self-care (01) ==
PROVIDERS: PCP Family Medicine; Visit Provider Internal Medicine Medical Oncology
DX: Z45.2 Encounter for adjustment and management of vascular access device (principal); Z53.9 Procedure and treatment not carried out, unspecified reason
CPT/HCPCS: 80053; 81001; 85025; 96367; 96368; 96375; 96413; 96415; 96416; 96417; 96523; 99214; 99215; J0461; J0640; J1100; J2469; J7050; J9190; J9206; Q5107

== ENCOUNTER 2022-08-05 13:30 | Oncology outpatient (recurring) (ONCR) | payer MEDICARE, OTHER, SELFPAY ==
[2022-07-20 08:38] LABS: Basophils % 0.7 %; Eosinophils # 0.1 10^3/uL (0.0-0.8); Eosinophils % 2.2 %; Hematocrit 43.7 % (42.0-52.0); Hemoglobin 14.2 g/dL (11.7-16.6); Lymphocytes # 0.9 10^3/uL (0.8-4.8); Lymphocytes % 21.3 %; Mean Corpuscular HGB Conc 32.5 g/dL (30.0-36.0); Mean Corpuscular Hemoglobin 29.8 pg (28.0-34.0); Mean Corpuscular Volume 91.8 fl (80-94); Mean Platelet Volume 10.5 fL (7.4-10.4); Monocytes # 0.5 10^3/uL (0.2-0.9); Monocytes % 11.4 %; Neutrophils # 2.65 10^3/uL (1.8-7.7); Neutrophils % 63.9 %; Nucleated Red Blood Cells % 0 %; Platelet Count 163 10^3/cmm (130-400); Red Blood Count 4.76 10^6/uL (4.1-5.3); Red Cell Distribution Width 16.9 % (12.1-15.1); White Blood Count 4.1 10^3/uL (4.0-10.0)
[2022-07-20 08:53] LABS: Add Urine Microscopic? NO; Charge for UA Resulting for Rev
[2022-07-20 09:19] LABS: Bilirubin Urine 1+ (Negative); Blood Urine Neg (Negative); Glucose Urine UA Norm (Normal); Ketones Urine Negative (Negative); Leukocyte Esterase Urine Negative (Negative); Nitrate Urine Negative (Negative); Protein Urine Neg (Negative); Urine Appearance Clear (CLEAR); Urine Color Yellow (Yellow); Urobilinogen Urine 4 mg/dL (Negative); pH Urine 6 (5-7)
[2022-07-20 09:20] LABS: Alanine Aminotransferase 40 U/L (0-41); Albumin Level 4.3 g/dL (3.5-5.2); Alkaline Phosphatase 84 U/L (40-130); Anion Gap 11.2 (5-19); Aspartate Amino Transferase 32 U/L (0-40); Blood Urea Nitrogen 12 mg/dL (8-23); Calcium 8.7 mg/dL (8.5-10.5); Carbon Dioxide 27 mmol/L (22-29); Chloride 106 mmol/L (98-107); Globulin 2.3 g/dL (1.3-4.6); Glomerular Filtration Rate 111.8 mL/min (90-130); Glucose 86 mg/dL (65-115); Osmolality Calculated 289 mOsm/kg (285-295); Potassium 4.2 mmol/L (3.5-5.1); Sodium 140 mmol/L (136-145); Total Bilirubin 0.9 mg/dL (0.15-1.2); Total Protein 6.6 g/dL (6.6-8.7)
[2022-07-20] MEDS: sodium chloride 0.9% 250 ML 75 ML IV (09:20)
[2022-07-20] MEDS: palonosetron 0.25 mg/5 mL SDV IVP (09:21)
[2022-07-20] MEDS: atropine 1 mg/mL SDV 1 mL 0.4 MG IV (09:23)
[2022-07-20] MEDS: leucovorin 840 MG in dextrose 5% 250 ML 222.67 MG IV (10:46)
[2022-07-20] MEDS: SODIUM CHLORIDE IV (12:23)
[2022-07-20] MEDS: ELASTOMERIC PUMP PUMP IV (12:23)
[2022-07-20] MEDS: FLUOROURACIL IV (12:23)
[2022-07-20 12:27] VITALS: BP 150/92; PULSE 52; RESP 16; TEMP 35.9; O2SAT 98
[2022-07-22 10:51] VITALS: BP 163/83; PULSE 72; RESP 18; TEMP 36.4; O2SAT 92
[2022-08-03 08:18] LABS: Basophils % 0.8 %; Eosinophils # 0.1 10^3/uL (0.0-0.8); Eosinophils % 2.5 %; Hematocrit 43.5 % (42.0-52.0); Hemoglobin 14.1 g/dL (11.7-16.6); Lymphocytes # 0.9 10^3/uL (0.8-4.8); Lymphocytes % 23.2 %; Mean Corpuscular HGB Conc 32.4 g/dL (30.0-36.0); Mean Corpuscular Hemoglobin 29.9 pg (28.0-34.0); Mean Corpuscular Volume 92.2 fl (80-94); Monocytes # 0.4 10^3/uL (0.2-0.9); Monocytes % 9.5 %; Neutrophils # 2.34 10^3/uL (1.8-7.7); Neutrophils % 63.7 %; Nucleated Red Blood Cells % 0 %; Platelet Count 174 10^3/cmm (130-400); Red Blood Count 4.72 10^6/uL (4.1-5.3); Red Cell Distribution Width 16.9 % (12.1-15.1); White Blood Count 3.7 10^3/uL (4.0-10.0)
[2022-08-03 08:45] LABS: Alanine Aminotransferase 29 U/L (0-41); Albumin Level 4.2 g/dL (3.5-5.2); Alkaline Phosphatase 79 U/L (40-130); Anion Gap 14.2 (5-19); Aspartate Amino Transferase 25 U/L (0-40); Blood Urea Nitrogen 15 mg/dL (8-23); Calcium 8.9 mg/dL (8.5-10.5); Carbon Dioxide 27 mmol/L (22-29); Chloride 102 mmol/L (98-107); Globulin 2.4 g/dL (1.3-4.6); Glomerular Filtration Rate 74.1 mL/min (90-130); Glucose 137 mg/dL (65-115); Osmolality Calculated 291 mOsm/kg (285-295); Potassium 4.2 mmol/L (3.5-5.1); Sodium 139 mmol/L (136-145); Total Bilirubin 0.9 mg/dL (0.15-1.2); Total Protein 6.6 g/dL (6.6-8.7)
[2022-08-03] MEDS: palonosetron 0.25 mg/5 mL SDV IVP (10:38)
[2022-08-03] MEDS: atropine 1 mg/mL SDV 1 mL 0.4 MG IV (10:39)
[2022-08-03] MEDS: sodium chloride 0.9% (100 ml) 100 ML 75 ML (11:28)
[2022-08-03] MEDS: dextrose 5% 250 ML 75 ML IV (12:07)
[2022-08-03] MEDS: leucovorin 840 MG in dextrose 5% 250 ML 222.67 MG IV (12:07)
[2022-08-03 13:53] VITALS: BP 145/85; PULSE 53; RESP 16; TEMP 36; O2SAT 98
[2022-08-03] MEDS: FLUOROURACIL IV (13:56)
[2022-08-03] MEDS: SODIUM CHLORIDE IV (13:56)
[2022-08-03] MEDS: ELASTOMERIC PUMP PUMP IV (13:56)
== END 2022-08-13 23:59 | disposition home or self-care (01) ==
PROVIDERS: PCP Family Medicine; Visit Provider Internal Medicine Medical Oncology
DX: Z53.9 Procedure and treatment not carried out, unspecified reason; C78.6 Secondary malignant neoplasm of retroperitoneum and peritoneum
CPT/HCPCS: 80053; 81003; 85025; 96366; 96367; 96368; 96375; 96413; 96415; 96416; 96417; 96523; J0461; J0640; J1100; J2469; J7050; J9190; J9206; Q5107

== ENCOUNTER 2022-09-02 11:00 | Oncology outpatient (recurring) (ONCR) | payer MEDICARE, OTHER, SELFPAY ==
[2022-08-17 08:28] LABS: Basophils % 0.5 %; Eosinophils # 0.1 10^3/uL (0.0-0.8); Eosinophils % 2.1 %; Hemoglobin 14.2 g/dL (11.7-16.6); Lymphocytes # 0.6 10^3/uL (0.8-4.8); Lymphocytes % 16.5 %; Mean Corpuscular HGB Conc 32.3 g/dL (30.0-36.0); Mean Corpuscular Hemoglobin 29.5 pg (28.0-34.0); Mean Corpuscular Volume 91.5 fl (80-94); Mean Platelet Volume 10.1 fL (7.4-10.4); Monocytes # 0.5 10^3/uL (0.2-0.9); Monocytes % 12.3 %; Neutrophils # 2.61 10^3/uL (1.8-7.7); Neutrophils % 68.3 %; Nucleated Red Blood Cells % 0 %; Platelet Count 167 10^3/cmm (130-400); Red Blood Count 4.81 10^6/uL (4.1-5.3); Red Cell Distribution Width 17.2 % (12.1-15.1); White Blood Count 3.8 10^3/uL (4.0-10.0)
[2022-08-17 08:50] LABS: Alanine Aminotransferase 20 U/L (0-41); Albumin Level 4.2 g/dL (3.5-5.2); Alkaline Phosphatase 87 U/L (40-130); Anion Gap 13.8 (5-19); Aspartate Amino Transferase 17 U/L (0-40); Blood Urea Nitrogen 10 mg/dL (8-23); Calcium 8.7 mg/dL (8.5-10.5); Carbon Dioxide 26 mmol/L (22-29); Chloride 105 mmol/L (98-107); Globulin 2.4 g/dL (1.3-4.6); Glomerular Filtration Rate 95.8 mL/min (90-130); Glucose 108 mg/dL (65-115); Osmolality Calculated 292 mOsm/kg (285-295); Potassium 3.8 mmol/L (3.5-5.1); Sodium 141 mmol/L (136-145); Total Bilirubin 1.3 mg/dL (0.15-1.2); Total Protein 6.6 g/dL (6.6-8.7)
[2022-08-17] MEDS: sodium chloride 0.9% 250 ML 75 ML IV (09:21)
[2022-08-17] MEDS: palonosetron 0.25 mg/5 mL SDV IVP (09:23)
[2022-08-17] MEDS: leucovorin 840 MG in dextrose 5% 250 ML 222.67 MG IV (10:18)
[2022-08-17] MEDS: atropine 1 mg/mL SDV 1 mL 0.4 MG IV (10:30)
[2022-08-17] MEDS: FLUOROURACIL IV (11:47)
[2022-08-17] MEDS: SODIUM CHLORIDE IV (11:47)
[2022-08-17] MEDS: ELASTOMERIC PUMP PUMP IV (11:47)
[2022-08-17 12:20] VITALS: BP 159/90; PULSE 70; RESP 16; TEMP 36.7; O2SAT 99
[2022-08-31 08:25] LABS: Basophils % 0.8 %; Eosinophils # 0.1 10^3/uL (0.0-0.8); Eosinophils % 1.9 %; Hematocrit 42.4 % (42.0-52.0); Hemoglobin 13.8 g/dL (11.7-16.6); Lymphocytes # 0.8 10^3/uL (0.8-4.8); Lymphocytes % 21.4 %; Mean Corpuscular HGB Conc 32.5 g/dL (30.0-36.0); Mean Corpuscular Hemoglobin 29.6 pg (28.0-34.0); Monocytes # 0.4 10^3/uL (0.2-0.9); Monocytes % 10.8 %; Neutrophils # 2.33 10^3/uL (1.8-7.7); Neutrophils % 64.8 %; Nucleated Red Blood Cells % 0 %; Platelet Count 166 10^3/cmm (130-400); Red Blood Count 4.66 10^6/uL (4.1-5.3); Red Cell Distribution Width 17.3 % (12.1-15.1); White Blood Count 3.6 10^3/uL (4.0-10.0)
[2022-08-31 08:46] LABS: Alanine Aminotransferase 22 U/L (0-41); Alkaline Phosphatase 84 U/L (40-130); Anion Gap 14.1 (5-19); Aspartate Amino Transferase 22 U/L (0-40); Blood Urea Nitrogen 14 mg/dL (8-23); Calcium 8.8 mg/dL (8.5-10.5); Carbon Dioxide 26 mmol/L (22-29); Chloride 105 mmol/L (98-107); Globulin 2.7 g/dL (1.3-4.6); Glomerular Filtration Rate 95.8 mL/min (90-130); Glucose 101 mg/dL (65-115); Osmolality Calculated 293 mOsm/kg (285-295); Potassium 4.1 mmol/L (3.5-5.1); Sodium 141 mmol/L (136-145); Total Bilirubin 0.9 mg/dL (0.15-1.2); Total Protein 6.7 g/dL (6.6-8.7)
[2022-08-31] MEDS: sodium chloride 0.9% 250 ML 75 ML IV (10:27)
[2022-08-31] MEDS: palonosetron 0.25 mg/5 mL SDV IVP (10:28)
[2022-08-31] MEDS: atropine 1 mg/mL SDV 1 mL 0.4 MG IV (10:32)
[2022-08-31] MEDS: bevacizumab-awwb 400 MG, bevacizumab-awwb 40 MG in sodium chloride 0.9% (100 ml) 100 ML 300 MG IV (11:05)
[2022-08-31] MEDS: leucovorin 820 MG in dextrose 5% 250 ML 166.67 MG IV (11:39)
[2022-08-31] MEDS: FLUOROURACIL IV (13:12)
[2022-08-31] MEDS: SODIUM CHLORIDE IV (13:12)
[2022-08-31] MEDS: ELASTOMERIC PUMP PUMP IV (13:12)
[2022-08-31 13:15] VITALS: BP 168/97; PULSE 50; RESP 16; TEMP 36.2; O2SAT 99
== END 2022-09-13 23:59 | disposition home or self-care (01) ==
PROVIDERS: PCP Family Medicine; Visit Provider Internal Medicine Medical Oncology
DX: Z45.2 Encounter for adjustment and management of vascular access device (principal)
CPT/HCPCS: 80053; 85025; 96367; 96368; 96375; 96413; 96415; 96416; 96417; 96523; 99214; J0461; J0640; J1100; J2469; J7050; J9190; J9206; Q5107

== ENCOUNTER → 2022-10-04 07:49 | Outpatient (BNVA) | payer MEDICARE, OTHER, SELFPAY | PROVIDERS: PCP Family Medicine; Visit Provider Internal Medicine Medical Oncology | DX: C20 Malignant neoplasm of rectum (principal) | CPT/HCPCS: 99214 ==

== ENCOUNTER 2022-10-06 11:00 | Oncology outpatient (recurring) (ONCR) | payer MEDICARE, OTHER, SELFPAY ==
[2022-09-20 08:03] VITALS: BP 141/86; PULSE 62; RESP 16; TEMP 36.3; O2SAT 99
[2022-09-20 08:28] LABS: Basophils % 0.5 %; Eosinophils # 0.1 10^3/uL (0.0-0.8); Eosinophils % 2.7 %; Hematocrit 42.4 % (42.0-52.0); Hemoglobin 13.5 g/dL (11.7-16.6); Lymphocytes # 0.8 10^3/uL (0.8-4.8); Lymphocytes % 19.8 %; Mean Corpuscular HGB Conc 31.8 g/dL (30.0-36.0); Mean Corpuscular Volume 91.2 fl (80-94); Mean Platelet Volume 9.8 fL (7.4-10.4); Monocytes # 0.4 10^3/uL (0.2-0.9); Monocytes % 10.9 %; Neutrophils # 2.66 10^3/uL (1.8-7.7); Neutrophils % 65.6 %; Nucleated Red Blood Cells % 0 %; Platelet Count 204 10^3/cmm (130-400); Red Blood Count 4.65 10^6/uL (4.1-5.3); Red Cell Distribution Width 16.7 % (12.1-15.1); White Blood Count 4.1 10^3/uL (4.0-10.0)
[2022-09-20 08:41] LABS: Alanine Aminotransferase 26 U/L (0-41); Albumin Level 3.8 g/dL (3.5-5.2); Alkaline Phosphatase 94 U/L (40-130); Anion Gap 11.8 (5-19); Aspartate Amino Transferase 24 U/L (0-40); Blood Urea Nitrogen 12 mg/dL (8-23); Calcium 8.9 mg/dL (8.5-10.5); Carbon Dioxide 25 mmol/L (22-29); Chloride 101 mmol/L (98-107); Globulin 2.7 g/dL (1.3-4.6); Glomerular Filtration Rate 83.7 mL/min (90-130); Glucose 137 mg/dL (65-115); Osmolality Calculated 280 mOsm/kg (285-295); Potassium 3.8 mmol/L (3.5-5.1); Sodium 134 mmol/L (136-145); Total Bilirubin 0.7 mg/dL (0.15-1.2); Total Protein 6.5 g/dL (6.6-8.7)
[2022-09-20] MEDS: sodium chloride 0.9% 250 ML 75 ML IV (09:34)
[2022-09-20] MEDS: palonosetron 0.25 mg/5 mL SDV IVP (09:35)
[2022-09-20] MEDS: atropine 1 mg/mL SDV 1 mL 0.4 MG IV (09:37)
[2022-09-20] MEDS: bevacizumab-awwb 400 MG, bevacizumab-awwb 40 MG in sodium chloride 0.9% (100 ml) 100 ML 300 MG IV (09:55)
[2022-09-20] MEDS: leucovorin 840 MG in dextrose 5% 250 ML 166.67 MG IV (10:54)
[2022-09-20 12:31] VITALS: BP 163/89; PULSE 50; RESP 16; TEMP 36.3; O2SAT 100
[2022-09-20] MEDS: ELASTOMERIC PUMP PUMP IV (12:34)
[2022-09-20] MEDS: SODIUM CHLORIDE IV (12:34)
[2022-09-20] MEDS: FLUOROURACIL IV (12:34)
[2022-09-22 12:02] VITALS: BP 128/84; PULSE 67; RESP 16; TEMP 37; O2SAT 95
[2022-10-04 08:33] LABS: Basophils % 0.8 %; Eosinophils # 0.1 10^3/uL (0.0-0.8); Eosinophils % 2.5 %; Hematocrit 46.4 % (42.0-52.0); Hemoglobin 14.9 g/dL (11.7-16.6); Lymphocytes # 0.9 10^3/uL (0.8-4.8); Lymphocytes % 17.3 %; Mean Corpuscular HGB Conc 32.1 g/dL (30.0-36.0); Mean Corpuscular Hemoglobin 29.4 pg (28.0-34.0); Mean Corpuscular Volume 91.5 fl (80-94); Monocytes # 0.5 10^3/uL (0.2-0.9); Monocytes % 9.8 %; Neutrophils # 3.61 10^3/uL (1.8-7.7); Neutrophils % 69.2 %; Nucleated Red Blood Cells % 0 %; Platelet Count 161 10^3/cmm (130-400); Red Blood Count 5.07 10^6/uL (4.1-5.3); Red Cell Distribution Width 17.2 % (12.1-15.1); White Blood Count 5.2 10^3/uL (4.0-10.0)
[2022-10-04 08:50] LABS: Alanine Aminotransferase 36 U/L (0-41); Alkaline Phosphatase 96 U/L (40-130); Aspartate Amino Transferase 25 U/L (0-40); Blood Urea Nitrogen 10 mg/dL (8-23); Calcium 8.9 mg/dL (8.5-10.5); Carbon Dioxide 26 mmol/L (22-29); Chloride 104 mmol/L (98-107); Glomerular Filtration Rate 111.8 mL/min (90-130); Glucose 102 mg/dL (65-115); Osmolality Calculated 291 mOsm/kg (285-295); Sodium 141 mmol/L (136-145); Total Bilirubin 1.1 mg/dL (0.15-1.2)
[2022-10-04] MEDS: palonosetron 0.25 mg/5 mL SDV IVP (10:02)
[2022-10-04] MEDS: sodium chloride 0.9% 250 ML 75 ML IV (10:02)
[2022-10-04] MEDS: atropine 1 mg/mL SDV 1 mL 0.4 MG IV (10:03)
[2022-10-04] MEDS: bevacizumab-awwb 400 MG, bevacizumab-awwb 40 MG in sodium chloride 0.9% (100 ml) 100 ML 300 MG IV (10:30)
[2022-10-04] MEDS: leucovorin 840 MG in dextrose 5% 250 ML 166.67 MG IV (11:06)
[2022-10-04] MEDS: FLUOROURACIL IV (12:42)
[2022-10-04] MEDS: SODIUM CHLORIDE IV (12:42)
[2022-10-04] MEDS: ELASTOMERIC PUMP PUMP IV (12:42)
[2022-10-04 12:48] VITALS: BP 169/89; PULSE 53; RESP 16; TEMP 36.5; O2SAT 98
[2022-10-06 12:40] VITALS: BP 139/84; PULSE 62; RESP 16; TEMP 36.3; O2SAT 98
== END 2022-10-13 23:59 | disposition home or self-care (01) ==
PROVIDERS: PCP Family Medicine; Visit Provider Internal Medicine Medical Oncology
DX: Z45.2 Encounter for adjustment and management of vascular access device (principal)
CPT/HCPCS: 80053; 85025; 96368; 96375; 96413; 96415; 96416; 96417; 96523; 99213; J0461; J0640; J1100; J2469; J7050; J7060; J9190; J9206; Q5107

== ENCOUNTER → 2022-11-01 07:50 | Outpatient (BNVA) | payer MEDICARE, OTHER, SELFPAY | PROVIDERS: PCP Family Medicine; Visit Provider Internal Medicine Medical Oncology | DX: C20 Malignant neoplasm of rectum (principal) | CPT/HCPCS: 99214 ==

== ENCOUNTER 2022-11-03 11:00 | Oncology outpatient (recurring) (ONCR) | payer MEDICARE, OTHER, SELFPAY ==
[2022-11-01 08:13] LABS: Basophils # 0.1 10^3/uL (0.0-0.1); Basophils % 0.9 %; Eosinophils # 0.1 10^3/uL (0.0-0.8); Eosinophils % 2.4 %; Hematocrit 47.3 % (42.0-52.0); Hemoglobin 15.5 g/dL (11.7-16.6); Mean Corpuscular HGB Conc 32.8 g/dL (30.0-36.0); Mean Corpuscular Hemoglobin 29.9 pg (28.0-34.0); Mean Corpuscular Volume 91.1 fl (80-94); Mean Platelet Volume 11.2 fL (7.4-10.4); Monocytes # 0.5 10^3/uL (0.2-0.9); Monocytes % 9.1 %; Neutrophils # 3.94 10^3/uL (1.8-7.7); Neutrophils % 68.9 %; Nucleated Red Blood Cells % 0 %; Platelet Count 166 10^3/cmm (130-400); Red Blood Count 5.19 10^6/uL (4.1-5.3); White Blood Count 5.7 10^3/uL (4.0-10.0)
[2022-11-01 08:18] LABS: Add Urine Microscopic? NO; Charge for UA Resulting for Rev
[2022-11-01 08:35] LABS: Albumin Level 4.1 g/dL (3.5-5.2); Alkaline Phosphatase 100 U/L (40-130); Blood Urea Nitrogen 14 mg/dL (8-23); Calcium 8.9 mg/dL (8.5-10.5); Carbon Dioxide 25 mmol/L (22-29); Chloride 103 mmol/L (98-107); Globulin 2.7 g/dL (1.3-4.6); Glomerular Filtration Rate 95.8 mL/min (90-130); Glucose 138 mg/dL (65-115); Osmolality Calculated 291 mOsm/kg (285-295); Sodium 139 mmol/L (136-145); Total Bilirubin 0.9 mg/dL (0.15-1.2); Total Protein 6.8 g/dL (6.6-8.7)
[2022-11-01 08:49] LABS: Alanine Aminotransferase < 5 U/L (0-41); Aspartate Amino Transferase 5 U/L (0-40)
[2022-11-01 08:50] LABS: Anion Gap 15.2 (5-19); Potassium 4.2 mmol/L (3.5-5.1)
[2022-11-01 09:11] LABS: Bilirubin Urine Neg (Negative); Blood Urine Neg (Negative); Glucose Urine UA Norm (Normal); Ketones Urine Negative (Negative); Leukocyte Esterase Urine Negative (Negative); Nitrate Urine Negative (Negative); Protein Urine Neg (Negative); Urine Appearance Clear (CLEAR); Urine Color Yellow (Yellow); Urobilinogen Urine Norm (Negative); pH Urine 5 (5-7)
[2022-11-01] MEDS: dextrose 5% 250 ML 75 ML IV (10:18)
[2022-11-01] MEDS: palonosetron 0.25 mg/5 mL SDV IVP (10:18)
[2022-11-01] MEDS: bevacizumab-awwb 400 MG, bevacizumab-awwb 40 MG in sodium chloride 0.9% (100 ml) 100 ML 300 MG IV (10:51)
[2022-11-01] MEDS: leucovorin 840 MG in dextrose 5% 250 ML 166.67 MG IV (11:24)
[2022-11-01 12:47] VITALS: BP 188/92; PULSE 54; RESP 16; TEMP 35.9; O2SAT 97
[2022-11-01] MEDS: ELASTOMERIC PUMP PUMP IV (12:51)
[2022-11-01] MEDS: SODIUM CHLORIDE IV (12:51)
[2022-11-01] MEDS: FLUOROURACIL IV (12:51)
[2022-11-03 10:55] VITALS: BP 158/92; PULSE 61; RESP 16; TEMP 36.1; O2SAT 98
== END 2022-11-13 23:59 | disposition home or self-care (01) ==
PROVIDERS: PCP Family Medicine; Visit Provider Internal Medicine Medical Oncology
DX: Z45.2 Encounter for adjustment and management of vascular access device; Z95.828 Presence of other vascular implants and grafts; C20 Malignant neoplasm of rectum
CPT/HCPCS: 80053; 81003; 85025; 96367; 96368; 96375; 96413; 96416; 96417; 96523; J0461; J0640; J1100; J2469; J7060; J9190; J9206; Q5107

== ENCOUNTER → 2022-11-29 07:51 | Outpatient (BNVA) | payer MEDICARE, OTHER, SELFPAY | PROVIDERS: PCP Family Medicine; Visit Provider Internal Medicine Medical Oncology | DX: C20 Malignant neoplasm of rectum (principal); C78.6 Secondary malignant neoplasm of retroperitoneum and peritoneum | CPT/HCPCS: 99214 ==

== ENCOUNTER 2022-12-13 08:00 | Oncology outpatient (recurring) (ONCR) | payer MEDICARE, OTHER, SELFPAY ==
[2022-11-16 08:45] VITALS: BP 142/86; PULSE 81; RESP 16; TEMP 36.8; O2SAT 96
[2022-11-16 08:54] LABS: Basophils % 0.6 %; Eosinophils # 0.2 10^3/uL (0.0-0.8); Eosinophils % 2.5 %; Hematocrit 45.8 % (42.0-52.0); Hemoglobin 14.7 g/dL (11.7-16.6); Lymphocytes # 0.8 10^3/uL (0.8-4.8); Lymphocytes % 12.6 %; Mean Corpuscular HGB Conc 32.1 g/dL (30.0-36.0); Mean Corpuscular Hemoglobin 29.1 pg (28.0-34.0); Mean Corpuscular Volume 90.7 fl (80-94); Mean Platelet Volume 11.4 fL (7.4-10.4); Monocytes # 0.6 10^3/uL (0.2-0.9); Monocytes % 8.9 %; Neutrophils # 4.91 10^3/uL (1.8-7.7); Neutrophils % 75.1 %; Nucleated Red Blood Cells % 0 %; Platelet Count 171 10^3/cmm (130-400); Red Blood Count 5.05 10^6/uL (4.1-5.3); Red Cell Distribution Width 16.5 % (12.1-15.1); White Blood Count 6.5 10^3/uL (4.0-10.0)
[2022-11-16 09:17] LABS: Alanine Aminotransferase 20 U/L (0-41); Albumin Level 4.2 g/dL (3.5-5.2); Alkaline Phosphatase 90 U/L (40-130); Aspartate Amino Transferase 21 U/L (0-40); Blood Urea Nitrogen 17 mg/dL (8-23); Calcium 8.7 mg/dL (8.5-10.5); Carbon Dioxide 23 mmol/L (22-29); Chloride 104 mmol/L (98-107); Globulin 2.3 g/dL (1.3-4.6); Glomerular Filtration Rate 111.8 mL/min (90-130); Glucose 155 mg/dL (65-115); Osmolality Calculated 289 mOsm/kg (285-295); Sodium 137 mmol/L (136-145); Total Bilirubin 0.9 mg/dL (0.15-1.2); Total Protein 6.5 g/dL (6.6-8.7)
[2022-11-16 09:29] LABS: Anion Gap 13.9 (5-19); Potassium 3.9 mmol/L (3.5-5.1)
[2022-11-16] MEDS: sodium chloride 0.9% 250 ML 75 ML IV (10:21)
[2022-11-16] MEDS: palonosetron 0.25 mg/5 mL SDV IVP (10:21)
[2022-11-16] MEDS: atropine 1 mg/mL SDV 1 mL 0.4 MG IV (10:22)
[2022-11-16] MEDS: bevacizumab-awwb 400 MG, bevacizumab-awwb 40 MG in sodium chloride 0.9% (100 ml) 100 ML 300 MG IV (10:51)
[2022-11-16] MEDS: leucovorin 840 MG in dextrose 5% 250 ML 166.67 MG IV (11:32)
[2022-11-16 12:59] VITALS: BP 179/91; PULSE 56; RESP 16; TEMP 36.6; O2SAT 98
[2022-11-16] MEDS: FLUOROURACIL IV (13:05)
[2022-11-16] MEDS: ELASTOMERIC PUMP PUMP IV (13:05)
[2022-11-16] MEDS: SODIUM CHLORIDE IV (13:05)
[2022-11-18 12:46] VITALS: BP 147/87; PULSE 62; RESP 16; TEMP 35.9; O2SAT 98
[2022-11-29 08:26] LABS: Basophils % 0.7 %; Eosinophils # 0.1 10^3/uL (0.0-0.8); Eosinophils % 2.8 %; Hemoglobin 15.2 g/dL (11.7-16.6); Lymphocytes # 0.9 10^3/uL (0.8-4.8); Mean Corpuscular HGB Conc 32.3 g/dL (30.0-36.0); Mean Corpuscular Hemoglobin 29.3 pg (28.0-34.0); Mean Corpuscular Volume 90.7 fl (80-94); Mean Platelet Volume 10.4 fL (7.4-10.4); Monocytes # 0.5 10^3/uL (0.2-0.9); Monocytes % 10.5 %; Neutrophils # 2.77 10^3/uL (1.8-7.7); Neutrophils % 64.5 %; Nucleated Red Blood Cells % 0 %; Platelet Count 156 10^3/cmm (130-400); Red Blood Count 5.18 10^6/uL (4.1-5.3); Red Cell Distribution Width 16.8 % (12.1-15.1); White Blood Count 4.3 10^3/uL (4.0-10.0)
[2022-11-29 08:45] LABS: Carcinoembryonic Antigen 2.1 ng/mL (0.0-4.7)
[2022-11-29 08:56] LABS: Alanine Aminotransferase 29 U/L (0-41); Albumin Level 4.3 g/dL (3.5-5.2); Alkaline Phosphatase 96 U/L (40-130); Anion Gap 14.2 (5-19); Aspartate Amino Transferase 25 U/L (0-40); Blood Urea Nitrogen 12 mg/dL (8-23); Calcium 8.5 mg/dL (8.5-10.5); Carbon Dioxide 25 mmol/L (22-29); Chloride 104 mmol/L (98-107); Globulin 2.4 g/dL (1.3-4.6); Glomerular Filtration Rate 95.8 mL/min (90-130); Glucose 113 mg/dL (65-115); Osmolality Calculated 289 mOsm/kg (285-295); Potassium 4.2 mmol/L (3.5-5.1); Sodium 139 mmol/L (136-145); Total Bilirubin 0.9 mg/dL (0.15-1.2); Total Protein 6.7 g/dL (6.6-8.7)
[2022-11-29] MEDS: sodium chloride 0.9% 250 ML 75 ML IV (10:33)
[2022-11-29] MEDS: palonosetron 0.25 mg/5 mL SDV IVP (10:34)
[2022-11-29] MEDS: bevacizumab-awwb 400 MG, bevacizumab-awwb 40 MG in sodium chloride 0.9% (100 ml) 100 ML 325 MG IV (10:52)
[2022-11-29] MEDS: atropine 1 mg/mL SDV 1 mL 0.4 MG IV (11:25)
[2022-11-29] MEDS: leucovorin 840 MG in dextrose 5% 250 ML 166.67 MG IV (11:28)
[2022-11-29] MEDS: ELASTOMERIC PUMP PUMP IV (13:01)
[2022-11-29] MEDS: FLUOROURACIL IV (13:01)
[2022-11-29] MEDS: SODIUM CHLORIDE IV (13:01)
[2022-11-29 13:47] VITALS: BP 159/106; PULSE 57; TEMP 36.6; O2SAT 99
[2022-12-01 11:20] VITALS: BP 150/88; PULSE 65; RESP 16; TEMP 35.9; O2SAT 96
[2022-12-13 08:43] LABS: Basophils % 0.9 %; Eosinophils # 0.2 10^3/uL (0.0-0.8); Eosinophils % 3.3 %; Hemoglobin 14.9 g/dL (11.7-16.6); Lymphocytes # 0.8 10^3/uL (0.8-4.8); Lymphocytes % 17.4 %; Mean Corpuscular HGB Conc 32.4 g/dL (30.0-36.0); Mean Corpuscular Hemoglobin 29.6 pg (28.0-34.0); Mean Corpuscular Volume 91.3 fl (80-94); Mean Platelet Volume 10.6 fL (7.4-10.4); Monocytes # 0.6 10^3/uL (0.2-0.9); Monocytes % 12.9 %; Neutrophils # 2.91 10^3/uL (1.8-7.7); Neutrophils % 64.8 %; Nucleated Red Blood Cells % 0 %; Platelet Count 149 10^3/cmm (130-400); Red Blood Count 5.04 10^6/uL (4.1-5.3); Red Cell Distribution Width 17.7 % (12.1-15.1); White Blood Count 4.5 10^3/uL (4.0-10.0)
[2022-12-13] MEDS: sodium chloride 0.9% 250 ML 75 ML IV (09:01)
[2022-12-13] MEDS: palonosetron 0.25 mg/5 mL SDV IVP (09:02)
[2022-12-13] MEDS: atropine 1 mg/mL SDV 1 mL 0.4 MG IV (09:03)
[2022-12-13] MEDS: bevacizumab-awwb 400 MG, bevacizumab-awwb 40 MG in sodium chloride 0.9% (100 ml) 100 ML 300 MG IV (09:20)
[2022-12-13 09:41] LABS: Alanine Aminotransferase 35 U/L (0-41); Albumin Level 4.1 g/dL (3.5-5.2); Alkaline Phosphatase 95 U/L (40-130); Anion Gap 15.2 (5-19); Aspartate Amino Transferase 29 U/L (0-40); Blood Urea Nitrogen 13 mg/dL (8-23); Calcium 8.8 mg/dL (8.5-10.5); Carbon Dioxide 24 mmol/L (22-29); Chloride 104 mmol/L (98-107); Globulin 2.5 g/dL (1.3-4.6); Glomerular Filtration Rate 83.7 mL/min (90-130); Glucose 94 mg/dL (65-115); Osmolality Calculated 288 mOsm/kg (285-295); Potassium 4.2 mmol/L (3.5-5.1); Sodium 139 mmol/L (136-145); Total Bilirubin 0.8 mg/dL (0.15-1.2); Total Protein 6.6 g/dL (6.6-8.7)
[2022-12-13] MEDS: leucovorin 840 MG in dextrose 5% 250 ML 166.67 MG IV (10:00)
[2022-12-13 11:39] VITALS: BP 181/87; PULSE 50; RESP 16; TEMP 36.4; O2SAT 97
[2022-12-13] MEDS: SODIUM CHLORIDE IV (11:40)
[2022-12-13] MEDS: ELASTOMERIC PUMP PUMP IV (11:40)
[2022-12-13] MEDS: FLUOROURACIL IV (11:40)
== END 2022-12-14 23:59 | disposition home or self-care (01) ==
PROVIDERS: PCP Family Medicine; Visit Provider Internal Medicine Medical Oncology
DX: Z51.11 Encounter for antineoplastic chemotherapy; C20 Malignant neoplasm of rectum; C78.6 Secondary malignant neoplasm of retroperitoneum and peritoneum; C78.7 Secondary malignant neoplasm of liver and intrahepatic bile duct; F17.290 Nicotine dependence, other tobacco product, uncomplicated; Z79.2 Long term (current) use of antibiotics; Z79.899 Other long term (current) drug therapy; Z79.52 Long term (current) use of systemic steroids; Z79.818 Long term (current) use of other agents affecting estrogen receptors and estrogen levels
CPT/HCPCS: 80053; 82378; 85025; 96367; 96368; 96375; 96413; 96415; 96416; 96417; 96523; 99214; J0461; J0640; J1100; J2469; J7050; J7060; J9190; J9206; Q5107

== ENCOUNTER → 2022-12-27 09:57 | Outpatient (BNVA) | payer MEDICARE, OTHER, SELFPAY | PROVIDERS: PCP Family Medicine; Visit Provider Nurse Practitioner | DX: C20 Malignant neoplasm of rectum (principal); C78.6 Secondary malignant neoplasm of retroperitoneum and peritoneum | CPT/HCPCS: 99214 ==

== ENCOUNTER 2023-01-03 11:03 | Outpatient (CLI) | payer MEDICARE, OTHER, SELFPAY ==
--- NOTE | 2023-01-03 10:15 | USCV_ITS ---
iMck Fritz Age: 67 Gender: M : 1955 Exam Date: 01/03/2023 11:15 Ordering Phys: Tiago Edwards MD Technologist: CT [place] [facility] [place]ication: pain/swelling PROCEDURES: Venous duplex imaging was performed in only the left lower extremity. In addition, the posterior tibial and peroneal trunk were evaluated. On the left side, the common femoral, superficial femoral, profunda femoral, popliteal, posterior tibial, greater saphenous veins, and the peroneal trunk were identified and interrogated in the standard fashion. These veins were found to be easily compressible with spontaneous blood flow. No evidence of insufficiency or thrombus noted. CONCLUSIONS No evidence of left lower extremity DVT. Elieser Cruz MD (Electronically Signed) Final Date: 03 January 2023 13:12 S
== END 2023-01-03 11:04 | disposition home or self-care (01) ==
PROVIDERS: PCP Family Medicine; Visit Provider Internal Medicine Medical Oncology
DX: R52 Pain, unspecified (principal); M79.89 Other specified soft tissue disorders
CPT/HCPCS: 93971

== ENCOUNTER 2023-01-10 08:00 | Oncology outpatient (recurring) (ONCR) | payer MEDICARE, OTHER, SELFPAY ==
[2022-12-15 10:33] VITALS: BP 155/91; PULSE 71; RESP 16; TEMP 35.9; O2SAT 99
[2022-12-27 08:31] LABS: Add Urine Microscopic? NO
[2022-12-27 08:32] LABS: Charge for UA Resulting for Rev
[2022-12-27 08:39] LABS: Basophils % 0.8 %; Eosinophils # 0.1 10^3/uL (0.0-0.8); Eosinophils % 2.9 %; Hematocrit 45.7 % (42.0-52.0); Hemoglobin 14.7 g/dL (11.7-16.6); Lymphocytes % 21.4 %; Mean Corpuscular HGB Conc 32.2 g/dL (30.0-36.0); Mean Corpuscular Hemoglobin 29.2 pg (28.0-34.0); Mean Corpuscular Volume 90.9 fl (80-94); Mean Platelet Volume 10.3 fL (7.4-10.4); Monocytes # 0.5 10^3/uL (0.2-0.9); Monocytes % 10.7 %; Neutrophils # 3.03 10^3/uL (1.8-7.7); Neutrophils % 63.8 %; Nucleated Red Blood Cells % 0 %; Platelet Count 166 10^3/cmm (130-400); Red Blood Count 5.03 10^6/uL (4.1-5.3); Red Cell Distribution Width 16.9 % (12.1-15.1); White Blood Count 4.8 10^3/uL (4.0-10.0)
[2022-12-27 08:48] LABS: Bilirubin Urine Neg (Negative); Blood Urine Neg (Negative); Glucose Urine UA Norm (Normal); Ketones Urine Negative (Negative); Nitrate Urine Negative (Negative); Protein Urine Neg (Negative); Specific Gravity, Urine 1.025 (1.005-1.030); Urine Appearance Clear (CLEAR); Urine Color Yellow (Yellow); Urobilinogen Urine 1 mg/dL (Negative); pH Urine 5 (5-7)
[2022-12-27 08:49] LABS: Leukocyte Esterase Urine Negative (Negative)
[2022-12-27 08:54] LABS: Alanine Aminotransferase 25 U/L (0-41); Albumin Level 4.3 g/dL (3.5-5.2); Alkaline Phosphatase 89 U/L (40-130); Anion Gap 14.4 (5-19); Aspartate Amino Transferase 21 U/L (0-40); Blood Urea Nitrogen 12 mg/dL (8-23); Calcium 8.9 mg/dL (8.5-10.5); Carbon Dioxide 25 mmol/L (22-29); Chloride 104 mmol/L (98-107); Globulin 2.4 g/dL (1.3-4.6); Glomerular Filtration Rate 95.8 mL/min (90-130); Glucose 104 mg/dL (65-115); Osmolality Calculated 288 mOsm/kg (285-295); Potassium 4.4 mmol/L (3.5-5.1); Sodium 139 mmol/L (136-145); Total Bilirubin 0.7 mg/dL (0.15-1.2); Total Protein 6.7 g/dL (6.6-8.7)
[2022-12-27] MEDS: palonosetron 0.25 mg/5 mL SDV IVP (10:51)
[2022-12-27] MEDS: sodium chloride 0.9% 250 ML 75 ML IV (10:51)
[2022-12-27] MEDS: atropine 1 mg/mL SDV 1 mL 0.4 MG IV (10:53)
[2022-12-27] MEDS: bevacizumab-awwb 400 MG, bevacizumab-awwb 40 MG in sodium chloride 0.9% (100 ml) 100 ML 300 MG IV (11:18)
[2022-12-27] MEDS: leucovorin 840 MG in dextrose 5% 250 ML 166.67 MG IV (11:47)
[2022-12-27 13:23] VITALS: PULSE 53; RESP 16; TEMP 36.4; O2SAT 99
[2022-12-27] MEDS: ELASTOMERIC PUMP PUMP IV (13:23)
[2022-12-27] MEDS: SODIUM CHLORIDE IV (13:23)
[2022-12-27] MEDS: FLUOROURACIL IV (13:23)
[2022-12-29 11:26] VITALS: BP 157/91; PULSE 72; RESP 16; TEMP 36.1; O2SAT 97
[2023-01-10 08:26] LABS: Basophils % 0.7 %; Eosinophils # 0.1 10^3/uL (0.0-0.8); Eosinophils % 1.9 %; Hematocrit 43.6 % (42.0-52.0); Hemoglobin 13.9 g/dL (11.7-16.6); Lymphocytes # 0.7 10^3/uL (0.8-4.8); Lymphocytes % 17.6 %; Mean Corpuscular HGB Conc 31.9 g/dL (30.0-36.0); Mean Corpuscular Hemoglobin 29.5 pg (28.0-34.0); Mean Corpuscular Volume 92.6 fl (80-94); Mean Platelet Volume 9.9 fL (7.4-10.4); Monocytes # 0.5 10^3/uL (0.2-0.9); Monocytes % 11.8 %; Neutrophils # 2.79 10^3/uL (1.8-7.7); Neutrophils % 67.3 %; Nucleated Red Blood Cells % 0 %; Platelet Count 157 10^3/cmm (130-400); Red Blood Count 4.71 10^6/uL (4.1-5.3); Red Cell Distribution Width 16.8 % (12.1-15.1); White Blood Count 4.2 10^3/uL (4.0-10.0)
[2023-01-10 08:39] LABS: Alanine Aminotransferase 27 U/L (0-41); Albumin Level 3.9 g/dL (3.5-5.2); Alkaline Phosphatase 90 U/L (40-130); Anion Gap 14.1 (5-19); Aspartate Amino Transferase 25 U/L (0-40); Blood Urea Nitrogen 16 mg/dL (8-23); Calcium 8.4 mg/dL (8.5-10.5); Carbon Dioxide 25 mmol/L (22-29); Chloride 108 mmol/L (98-107); Globulin 2.2 g/dL (1.3-4.6); Glomerular Filtration Rate 83.7 mL/min (90-130); Glucose 106 mg/dL (65-115); Osmolality Calculated 298 mOsm/kg (285-295); Potassium 4.1 mmol/L (3.5-5.1); Sodium 143 mmol/L (136-145); Total Bilirubin 0.6 mg/dL (0.15-1.2); Total Protein 6.1 g/dL (6.6-8.7)
[2023-01-10] MEDS: palonosetron 0.25 mg/5 mL SDV IVP (09:10)
[2023-01-10] MEDS: sodium chloride 0.9% 250 ML 75 ML IV (09:10)
[2023-01-10] MEDS: atropine 1 mg/mL SDV 1 mL 0.4 MG IV (09:12)
[2023-01-10] MEDS: bevacizumab-awwb 400 MG, bevacizumab-awwb 40 MG in sodium chloride 0.9% (100 ml) 100 ML 300 MG IV (09:58)
[2023-01-10] MEDS: leucovorin 840 MG in dextrose 5% 250 ML 166.67 MG IV (10:40)
[2023-01-10 12:29] VITALS: BP 187/90; PULSE 50; RESP 16; TEMP 36.4; O2SAT 97
[2023-01-10] MEDS: ELASTOMERIC PUMP PUMP IV (12:29)
[2023-01-10] MEDS: SODIUM CHLORIDE IV (12:29)
[2023-01-10] MEDS: FLUOROURACIL IV (12:29)
== END 2023-01-11 23:59 | disposition home or self-care (01) ==
PROVIDERS: PCP Family Medicine; Visit Provider Internal Medicine Medical Oncology
DX: Z51.11 Encounter for antineoplastic chemotherapy (principal); C20 Malignant neoplasm of rectum; Z79.899 Other long term (current) drug therapy
CPT/HCPCS: 80053; 81003; 85025; 96366; 96367; 96375; 96413; 96415; 96416; 96417; 96523; J0461; J0640; J1100; J2469; J7050; J7060; J9190; J9206; Q5107

== ENCOUNTER → 2023-02-09 07:44 | Outpatient (BNVA) | payer MEDICARE, OTHER, SELFPAY | PROVIDERS: PCP Family Medicine; Visit Provider Nurse Practitioner Family | DX: C78.6 Secondary malignant neoplasm of retroperitoneum and peritoneum (principal) | CPT/HCPCS: 99214 ==

== ENCOUNTER 2023-02-11 11:30 | Oncology outpatient (recurring) (ONCR) | payer MEDICARE, OTHER, SELFPAY ==
[2023-01-12 10:35] VITALS: BP 181/92; PULSE 62; RESP 16; TEMP 36.6; O2SAT 95
[2023-01-25 08:38] LABS: Basophils % 0.9 %; Eosinophils # 0.1 10^3/uL (0.0-0.8); Eosinophils % 2.3 %; Hematocrit 46.9 % (42.0-52.0); Lymphocytes # 0.9 10^3/uL (0.8-4.8); Lymphocytes % 21.4 %; Mean Corpuscular Hemoglobin 29.1 pg (28.0-34.0); Mean Corpuscular Volume 90.9 fl (80-94); Mean Platelet Volume 10.6 fL (7.4-10.4); Monocytes # 0.5 10^3/uL (0.2-0.9); Monocytes % 11.1 %; Neutrophils # 2.78 10^3/uL (1.8-7.7); Neutrophils % 64.1 %; Nucleated Red Blood Cells % 0 %; Platelet Count 173 10^3/cmm (130-400); Red Blood Count 5.16 10^6/uL (4.1-5.3); Red Cell Distribution Width 16.7 % (12.1-15.1); White Blood Count 4.3 10^3/uL (4.0-10.0)
[2023-01-25 08:47] LABS: Add Urine Microscopic? NO; Charge for UA Resulting for Rev
[2023-01-25 08:56] LABS: Bilirubin Urine Neg (Negative); Blood Urine Neg (Negative); Glucose Urine UA Norm (Normal); Ketones Urine Negative (Negative); Leukocyte Esterase Urine Negative (Negative); Nitrate Urine Negative (Negative); Protein Urine Neg (Negative); Specific Gravity, Urine 1.015 (1.005-1.030); Urine Appearance Clear (CLEAR); Urine Color Yellow (Yellow); Urobilinogen Urine 1 mg/dL (Negative); pH Urine 5 (5-7)
[2023-01-25 09:07] LABS: Carcinoembryonic Antigen 2.5 ng/mL (0.0-4.7)
[2023-01-25 09:18] LABS: Alanine Aminotransferase 25 U/L (0-41); Alkaline Phosphatase 90 U/L (40-130); Anion Gap 15.1 (5-19); Aspartate Amino Transferase 25 U/L (0-40); Blood Urea Nitrogen 13 mg/dL (8-23); Calcium 8.9 mg/dL (8.5-10.5); Carbon Dioxide 25 mmol/L (22-29); Chloride 104 mmol/L (98-107); Globulin 2.8 g/dL (1.3-4.6); Glomerular Filtration Rate 95.8 mL/min (90-130); Glucose 93 mg/dL (65-115); Osmolality Calculated 290 mOsm/kg (285-295); Potassium 4.1 mmol/L (3.5-5.1); Sodium 140 mmol/L (136-145); Total Bilirubin 1.1 mg/dL (0.15-1.2); Total Protein 6.8 g/dL (6.6-8.7)
[2023-01-25] MEDS: dextrose 5% 250 ML 75 ML IV (10:38)
[2023-01-25] MEDS: atropine 1 mg/mL SDV 1 mL 0.4 MG IV (10:39)
[2023-01-25] MEDS: palonosetron 0.25 mg/5 mL SDV IVP (10:41)
[2023-01-25] MEDS: leucovorin 840 MG in dextrose 5% 250 ML 166.67 MG IV (11:00)
[2023-01-25 11:58] VITALS: BMI 27.4
[2023-01-25] MEDS: bevacizumab-awwb 400 MG, bevacizumab-awwb 40 MG in sodium chloride 0.9% (100 ml) 100 ML 250 MG IV (12:50)
[2023-01-25] MEDS: sodium chloride 0.9% 250 ML 75 ML IV (12:52)
[2023-01-25] MEDS: ELASTOMERIC PUMP PUMP IV (13:30)
[2023-01-25] MEDS: SODIUM CHLORIDE IV (13:30)
[2023-01-25] MEDS: FLUOROURACIL IV (13:30)
[2023-01-25 13:40] VITALS: BP 135/72; PULSE 67; RESP 18; TEMP 37.1; O2SAT 98
[2023-01-27 12:48] VITALS: BP 180/90; PULSE 67; RESP 16; TEMP 36.3; O2SAT 99
[2023-02-09 07:58] VITALS: BP 145/95; PULSE 67; RESP 20; TEMP 35.8; O2SAT 97
[2023-02-09 08:17] LABS: Eosinophils # 0.1 10^3/uL (0.0-0.8); Eosinophils % 2.5 %; Hematocrit 44.3 % (42.0-52.0); Hemoglobin 14.2 g/dL (11.7-16.6); Lymphocytes # 0.7 10^3/uL (0.8-4.8); Lymphocytes % 17.4 %; Mean Corpuscular HGB Conc 32.1 g/dL (30.0-36.0); Mean Corpuscular Hemoglobin 29.4 pg (28.0-34.0); Mean Corpuscular Volume 91.7 fl (80-94); Mean Platelet Volume 10.7 fL (7.4-10.4); Monocytes # 0.5 10^3/uL (0.2-0.9); Monocytes % 11.4 %; Neutrophils # 2.72 10^3/uL (1.8-7.7); Neutrophils % 67.5 %; Nucleated Red Blood Cells % 0 %; Platelet Count 162 10^3/cmm (130-400); Red Blood Count 4.83 10^6/uL (4.1-5.3); Red Cell Distribution Width 16.6 % (12.1-15.1)
[2023-02-09 09:29] LABS: Alanine Aminotransferase 19 U/L (0-41); Albumin Level 4.1 g/dL (3.5-5.2); Alkaline Phosphatase 79 U/L (40-130); Anion Gap 14.9 (5-19); Aspartate Amino Transferase 22 U/L (0-40); Blood Urea Nitrogen 10 mg/dL (8-23); Calcium 8.6 mg/dL (8.5-10.5); Carbon Dioxide 25 mmol/L (22-29); Chloride 100 mmol/L (98-107); Globulin 2.3 g/dL (1.3-4.6); Glomerular Filtration Rate 95.8 mL/min (90-130); Glucose 102 mg/dL (65-115); Osmolality Calculated 281 mOsm/kg (285-295); Potassium 3.9 mmol/L (3.5-5.1); Sodium 136 mmol/L (136-145); Total Bilirubin 1.1 mg/dL (0.15-1.2); Total Protein 6.4 g/dL (6.6-8.7)
[2023-02-09] MEDS: palonosetron 0.25 mg/5 mL SDV IVP (09:56)
[2023-02-09] MEDS: sodium chloride 0.9% 250 ML 75 ML IV (09:56)
[2023-02-09] MEDS: atropine 1 mg/mL SDV 1 mL 0.4 MG IV (09:57)
[2023-02-09] MEDS: bevacizumab-awwb 400 MG, bevacizumab-awwb 40 MG in sodium chloride 0.9% (100 ml) 100 ML 300 MG IV (10:20)
[2023-02-09] MEDS: leucovorin 840 MG in dextrose 5% 250 ML 166.67 MG IV (11:10)
[2023-02-09] MEDS: SODIUM CHLORIDE IV (12:40)
[2023-02-09] MEDS: ELASTOMERIC PUMP PUMP IV (12:40)
[2023-02-09] MEDS: FLUOROURACIL IV (12:40)
[2023-02-09 12:45] VITALS: BP 197/102; PULSE 52; RESP 16; TEMP 36.3; O2SAT 98
[2023-02-11 11:29] VITALS: BP 137/82; PULSE 61; TEMP 36.6
== END 2023-02-11 23:59 | disposition home or self-care (01) ==
PROVIDERS: Nurse Practitioner; Nurse Practitioner Family; PCP Family Medicine; Visit Provider Internal Medicine Medical Oncology
DX: C20 Malignant neoplasm of rectum (principal)
CPT/HCPCS: 80053; 81003; 82378; 85025; 96367; 96368; 96375; 96413; 96415; 96416; 96417; 96523; 99213; 99214; J0461; J0640; J1100; J2469; J7050; J7060; J9190; J9206; Q5107

== ENCOUNTER 2023-03-11 10:30 | Oncology outpatient (recurring) (ONCR) | payer MEDICARE, OTHER, SELFPAY ==
[2023-02-23 08:30] LABS: Basophils % 0.7 %; Eosinophils # 0.1 10^3/uL (0.0-0.8); Hematocrit 46.2 % (42.0-52.0); Hemoglobin 14.8 g/dL (11.7-16.6); Lymphocytes # 0.9 10^3/uL (0.8-4.8); Lymphocytes % 19.9 %; Mean Corpuscular Hemoglobin 29.9 pg (28.0-34.0); Mean Corpuscular Volume 93.3 fl (80-94); Monocytes # 0.5 10^3/uL (0.2-0.9); Monocytes % 11.6 %; Neutrophils % 65.6 %; Nucleated Red Blood Cells % 0 %; Platelet Count 153 10^3/cmm (130-400); Red Blood Count 4.95 10^6/uL (4.1-5.3); White Blood Count 4.6 10^3/uL (4.0-10.0)
[2023-02-23 08:54] LABS: Alanine Aminotransferase 32 U/L (0-41); Albumin Level 4.1 g/dL (3.5-5.2); Alkaline Phosphatase 88 U/L (40-130); Anion Gap 14.7 (5-19); Aspartate Amino Transferase 32 U/L (0-40); Blood Urea Nitrogen 18 mg/dL (8-23); Calcium 8.9 mg/dL (8.5-10.5); Carbon Dioxide 24 mmol/L (22-29); Chloride 108 mmol/L (98-107); Globulin 2.7 g/dL (1.3-4.6); Glomerular Filtration Rate 74.1 mL/min (90-130); Glucose 140 mg/dL (65-115); Osmolality Calculated 298 mOsm/kg (285-295); Potassium 4.7 mmol/L (3.5-5.1); Sodium 142 mmol/L (136-145); Total Protein 6.8 g/dL (6.6-8.7)
[2023-02-23] MEDS: sodium chloride 0.9% 250 ML 75 ML IV (09:48)
[2023-02-23] MEDS: palonosetron 0.25 mg/5 mL SDV IVP (09:49)
[2023-02-23] MEDS: atropine 1 mg/mL SDV 1 mL 0.4 MG IV (09:50)
[2023-02-23] MEDS: bevacizumab-awwb 400 MG, bevacizumab-awwb 40 MG in sodium chloride 0.9% (100 ml) 100 ML 300 MG IV (10:18)
[2023-02-23] MEDS: leucovorin 840 MG in dextrose 5% 250 ML 166.67 MG IV (10:44)
[2023-02-23 12:25] VITALS: BP 160/78; PULSE 50; RESP 16; TEMP 36.3; O2SAT 98
[2023-02-23] MEDS: SODIUM CHLORIDE IV (12:25)
[2023-02-23] MEDS: ELASTOMERIC PUMP PUMP IV (12:25)
[2023-02-23] MEDS: FLUOROURACIL IV (12:25)
[2023-02-25 09:54] VITALS: BP 150/82; PULSE 71; RESP 18; TEMP 36.6; O2SAT 97
[2023-03-09 07:58] VITALS: BP 121/80; PULSE 67; RESP 16; TEMP 35.8; O2SAT 98
[2023-03-09 08:25] LABS: Basophils % 0.8 %; Eosinophils # 0.1 10^3/uL (0.0-0.8); Eosinophils % 2.3 %; Hematocrit 42.5 % (42.0-52.0); Hemoglobin 13.7 g/dL (11.7-16.6); Lymphocytes # 0.9 10^3/uL (0.8-4.8); Lymphocytes % 21.3 %; Mean Corpuscular HGB Conc 32.2 g/dL (30.0-36.0); Mean Corpuscular Hemoglobin 29.3 pg (28.0-34.0); Mean Platelet Volume 10.5 fL (7.4-10.4); Monocytes # 0.5 10^3/uL (0.2-0.9); Monocytes % 11.8 %; Neutrophils # 2.55 10^3/uL (1.8-7.7); Neutrophils % 63.5 %; Nucleated Red Blood Cells % 0 %; Platelet Count 164 10^3/cmm (130-400); Red Blood Count 4.67 10^6/uL (4.1-5.3); Red Cell Distribution Width 16.6 % (12.1-15.1)
[2023-03-09 09:02] LABS: Alanine Aminotransferase 21 U/L (0-41); Alkaline Phosphatase 92 U/L (40-130); Anion Gap 15.4 (5-19); Aspartate Amino Transferase 21 U/L (0-40); Blood Urea Nitrogen 12 mg/dL (8-23); Calcium 8.8 mg/dL (8.5-10.5); Carbon Dioxide 23 mmol/L (22-29); Chloride 105 mmol/L (98-107); Globulin 2.3 g/dL (1.3-4.6); Glomerular Filtration Rate 95.8 mL/min (90-130); Glucose 111 mg/dL (65-115); Osmolality Calculated 288 mOsm/kg (285-295); Potassium 4.4 mmol/L (3.5-5.1); Sodium 139 mmol/L (136-145); Total Bilirubin 0.9 mg/dL (0.15-1.2); Total Protein 6.3 g/dL (6.6-8.7)
[2023-03-09] MEDS: sodium chloride 0.9% 250 ML 75 ML IV (09:59)
[2023-03-09] MEDS: palonosetron 0.25 mg/5 mL SDV IVP (09:59)
[2023-03-09] MEDS: atropine 1 mg/mL SDV 1 mL 0.4 MG IV (10:00)
[2023-03-09] MEDS: SODIUM CHLORIDE 0.9% IV (10:28)
[2023-03-09] MEDS: BEVACIZUMAB AWWB IV (10:28)
[2023-03-09] MEDS: leucovorin 820 MG in dextrose 5% 250 ML 166.67 MG IV (11:01)
[2023-03-09] MEDS: FLUOROURACIL IV (12:44)
[2023-03-09] MEDS: SODIUM CHLORIDE IV (12:44)
[2023-03-09] MEDS: ELASTOMERIC PUMP PUMP IV (12:44)
[2023-03-09 12:50] VITALS: BP 147/89; PULSE 56; RESP 16; TEMP 36.8; O2SAT 98
--- NOTE | 2023-03-25 07:48 | PC.NURSE ---
Pt in infusion suite for pump unhook on 03/25/23 at approx. 1100. Pump completed and unhooked. Pt tolerated treatment well.
== END 2023-03-13 23:59 | disposition home or self-care (01) ==
PROVIDERS: Nurse Practitioner Family; PCP Family Medicine; Visit Provider Internal Medicine Medical Oncology
DX: Z45.2 Encounter for adjustment and management of vascular access device
CPT/HCPCS: 80053; 85025; 96367; 96368; 96375; 96413; 96416; 96417; 96523; 99214; J0461; J0640; J1100; J2469; J7050; J7060; J9190; J9206; Q5107

== ENCOUNTER → 2023-04-06 07:58 | Outpatient (BNVA) | payer MEDICARE, OTHER, SELFPAY | PROVIDERS: PCP Family Medicine; Visit Provider Internal Medicine Medical Oncology | DX: Z53.9 Procedure and treatment not carried out, unspecified reason (principal) | CPT/HCPCS: 99214 ==

== ENCOUNTER 2023-04-08 11:30 | Oncology outpatient (recurring) (ONCR) | payer MEDICARE, OTHER, SELFPAY ==
[2023-03-23 08:09] VITALS: BP 131/84; PULSE 69; RESP 16; TEMP 36.3; O2SAT 98
[2023-03-23 08:24] LABS: Basophils % 0.5 %; Eosinophils # 0.1 10^3/uL (0.0-0.8); Eosinophils % 1.8 %; Hematocrit 43.2 % (42.0-52.0); Hemoglobin 13.8 g/dL (11.7-16.6); Lymphocytes # 0.9 10^3/uL (0.8-4.8); Lymphocytes % 21.4 %; Mean Corpuscular HGB Conc 31.9 g/dL (30.0-36.0); Mean Corpuscular Hemoglobin 29.3 pg (28.0-34.0); Mean Corpuscular Volume 91.7 fl (80-94); Mean Platelet Volume 10.3 fL (7.4-10.4); Monocytes # 0.6 10^3/uL (0.2-0.9); Monocytes % 14.1 %; Neutrophils # 2.69 10^3/uL (1.8-7.7); Nucleated Red Blood Cells % 0 %; Platelet Count 185 10^3/cmm (130-400); Red Blood Count 4.71 10^6/uL (4.1-5.3); White Blood Count 4.3 10^3/uL (4.0-10.0)
[2023-03-23 08:49] LABS: Alanine Aminotransferase 20 U/L (0-41); Alkaline Phosphatase 90 U/L (40-130); Anion Gap 14.2 (5-19); Aspartate Amino Transferase 22 U/L (0-40); Blood Urea Nitrogen 16 mg/dL (8-23); Calcium 8.7 mg/dL (8.5-10.5); Carbon Dioxide 25 mmol/L (22-29); Chloride 104 mmol/L (98-107); Creatinine Clr Calc Pharmacy 97.2887; Globulin 2.6 g/dL (1.3-4.6); Glomerular Filtration Rate 95.8 mL/min (90-130); Glucose 98 mg/dL (65-115); Osmolality Calculated 289 mOsm/kg (285-295); Potassium 4.2 mmol/L (3.5-5.1); Sodium 139 mmol/L (136-145); Total Bilirubin 0.9 mg/dL (0.15-1.2); Total Protein 6.6 g/dL (6.6-8.7)
[2023-04-06 08:07] VITALS: BP 151/89; PULSE 63; RESP 16; TEMP 35.9; O2SAT 97
[2023-04-06 08:22] LABS: Basophils % 0.7 %; Eosinophils # 0.1 10^3/uL (0.0-0.8); Eosinophils % 2.5 %; Hematocrit 45.9 % (42.0-52.0); Hemoglobin 14.7 g/dL (11.7-16.6); Lymphocytes % 22.4 %; Mean Corpuscular Hemoglobin 29.5 pg (28.0-34.0); Mean Platelet Volume 10.8 fL (7.4-10.4); Monocytes # 0.5 10^3/uL (0.2-0.9); Monocytes % 11.2 %; Neutrophils # 2.75 10^3/uL (1.8-7.7); Neutrophils % 62.7 %; Nucleated Red Blood Cells % 0 %; Platelet Count 192 10^3/cmm (130-400); Red Blood Count 4.99 10^6/uL (4.1-5.3); Red Cell Distribution Width 16.7 % (12.1-15.1); White Blood Count 4.4 10^3/uL (4.0-10.0)
[2023-04-06 08:48] LABS: Alanine Aminotransferase 17 U/L (0-41); Albumin Level 4.2 g/dL (3.5-5.2); Alkaline Phosphatase 87 U/L (40-130); Anion Gap 13.4 (5-19); Aspartate Amino Transferase 22 U/L (0-40); Blood Urea Nitrogen 16 mg/dL (8-23); Calcium 8.7 mg/dL (8.5-10.5); Carbon Dioxide 26 mmol/L (22-29); Chloride 106 mmol/L (98-107); Creatinine Clr Calc Pharmacy 97.2887; Globulin 2.2 g/dL (1.3-4.6); Glomerular Filtration Rate 95.8 mL/min (90-130); Glucose 90 mg/dL (65-115); Osmolality Calculated 293 mOsm/kg (285-295); Potassium 4.4 mmol/L (3.5-5.1); Sodium 141 mmol/L (136-145); Total Bilirubin 0.8 mg/dL (0.15-1.2); Total Protein 6.4 g/dL (6.6-8.7)
[2023-04-06] MEDS: sodium chloride 0.9% 250 ML 75 ML IV (09:45)
[2023-04-06] MEDS: palonosetron 0.25 mg/5 mL SDV IVP (09:45)
[2023-04-06] MEDS: SODIUM CHLORIDE 0.9% IV (10:04)
[2023-04-06] MEDS: BEVACIZUMAB AWWB IV (10:04)
[2023-04-06] MEDS: leucovorin 820 MG in dextrose 5% 250 ML 166.67 MG IV (10:37)
[2023-04-06 12:13] VITALS: BP 192/89; PULSE 59; RESP 16; TEMP 36.8; O2SAT 95
[2023-04-06] MEDS: SODIUM CHLORIDE IV (12:16)
[2023-04-06] MEDS: FLUOROURACIL IV (12:16)
[2023-04-06] MEDS: ELASTOMERIC PUMP PUMP IV (12:16)
[2023-04-08 11:17] VITALS: BP 127/82; PULSE 69; RESP 18; TEMP 36.6; O2SAT 97
== END 2023-04-13 23:59 | disposition home or self-care (01) ==
PROVIDERS: PCP Family Medicine; Visit Provider Internal Medicine Medical Oncology
DX: Z45.1 Encounter for adjustment and management of infusion pump (principal); Z95.828 Presence of other vascular implants and grafts
CPT/HCPCS: 80053; 85025; 96368; 96375; 96413; 96415; 96416; 96417; 96523; 99214; J0640; J1100; J1642; J2469; J7050; J7060; J9190; J9206; Q5107

== ENCOUNTER 2023-05-06 11:03 | Oncology outpatient (recurring) (ONCR) | payer MEDICARE, OTHER, SELFPAY ==
[2023-04-20 08:09] VITALS: BP 167/94; PULSE 66; RESP 16; TEMP 36.3; O2SAT 99
[2023-04-20 08:24] LABS: Add Urine Microscopic? NO; Charge for UA Resulting for Rev
[2023-04-20 08:28] LABS: Basophils % 0.7 %; Eosinophils # 0.1 10^3/uL (0.0-0.8); Eosinophils % 2.4 %; Hematocrit 43.8 % (42.0-52.0); Lymphocytes # 0.8 10^3/uL (0.8-4.8); Lymphocytes % 18.6 %; Mean Corpuscular Hemoglobin 29.3 pg (28.0-34.0); Mean Corpuscular Volume 91.6 fl (80-94); Mean Platelet Volume 10.1 fL (7.4-10.4); Monocytes # 0.4 10^3/uL (0.2-0.9); Monocytes % 9.1 %; Neutrophils # 3.12 10^3/uL (1.8-7.7); Nucleated Red Blood Cells % 0 %; Platelet Count 155 10^3/cmm (130-400); Red Blood Count 4.78 10^6/uL (4.1-5.3); Red Cell Distribution Width 16.7 % (12.1-15.1); White Blood Count 4.5 10^3/uL (4.0-10.0)
[2023-04-20 08:32] LABS: Bilirubin Urine 1+ (Negative); Blood Urine Neg (Negative); Glucose Urine UA Norm (Normal); Ketones Urine 1+ (Negative); Nitrate Urine Negative (Negative); Protein Urine Neg (Negative); Urine Appearance Clear (CLEAR); Urine Color Yellow (Yellow); Urobilinogen Urine 1 mg/dL (Negative); pH Urine 5 (5-7)
[2023-04-20 08:33] LABS: Leukocyte Esterase Urine Negative (Negative)
[2023-04-20 08:44] LABS: Alanine Aminotransferase 15 U/L (0-41); Albumin Level 3.9 g/dL (3.5-5.2); Alkaline Phosphatase 81 U/L (40-130); Anion Gap 11.3 (5-19); Aspartate Amino Transferase 17 U/L (0-40); Blood Urea Nitrogen 11 mg/dL (8-23); Calcium 8.6 mg/dL (8.5-10.5); Carbon Dioxide 26 mmol/L (22-29); Chloride 108 mmol/L (98-107); Globulin 2.2 g/dL (1.3-4.6); Glomerular Filtration Rate 95.8 mL/min (90-130); Glucose 90 mg/dL (65-115); Osmolality Calculated 291 mOsm/kg (285-295); Potassium 4.3 mmol/L (3.5-5.1); Sodium 141 mmol/L (136-145); Total Bilirubin 0.8 mg/dL (0.15-1.2); Total Protein 6.1 g/dL (6.6-8.7)
[2023-04-20] MEDS: palonosetron 0.25 mg/5 mL SDV IVP (09:31)
[2023-04-20] MEDS: sodium chloride 0.9% 250 ML 75 ML IV (09:31)
[2023-04-20] MEDS: atropine 1 mg/mL SDV 1 mL 0.4 MG IV (09:33)
[2023-04-20] MEDS: SODIUM CHLORIDE 0.9% IV (10:08)
[2023-04-20] MEDS: BEVACIZUMAB AWWB IV (10:08)
[2023-04-20] MEDS: IRINOTECAN IV (10:42)
[2023-04-20] MEDS: DEXTROSE 5% IV (10:42)
[2023-04-20] MEDS: leucovorin 820 MG in dextrose 5% 250 ML 166.67 MG IV (10:43)
[2023-04-20 12:16] VITALS: BP 156/85; PULSE 60; RESP 16; TEMP 36.4; O2SAT 97
[2023-04-20] MEDS: SODIUM CHLORIDE IV (12:16)
[2023-04-20] MEDS: ELASTOMERIC PUMP PUMP IV (12:16)
[2023-04-20] MEDS: FLUOROURACIL IV (12:16)
[2023-05-04 08:00] VITALS: BP 139/86; PULSE 79; RESP 16; TEMP 36.1; O2SAT 99
[2023-05-04 08:31] LABS: Basophils % 0.8 %; Eosinophils # 0.1 10^3/uL (0.0-0.8); Hematocrit 46.6 % (42.0-52.0); Hemoglobin 15.3 g/dL (11.7-16.6); Lymphocytes % 24.4 %; Mean Corpuscular HGB Conc 32.8 g/dL (30.0-36.0); Mean Corpuscular Hemoglobin 29.7 pg (28.0-34.0); Mean Corpuscular Volume 90.3 fl (80-94); Mean Platelet Volume 9.6 fL (7.4-10.4); Monocytes # 0.5 10^3/uL (0.2-0.9); Monocytes % 12.3 %; Neutrophils # 2.36 10^3/uL (1.8-7.7); Neutrophils % 59.2 %; Nucleated Red Blood Cells % 0 %; Platelet Count 182 10^3/cmm (130-400); Red Blood Count 5.16 10^6/uL (4.1-5.3); Red Cell Distribution Width 16.3 % (12.1-15.1)
[2023-05-04 08:49] LABS: Alanine Aminotransferase 20 U/L (0-41); Albumin Level 4.1 g/dL (3.5-5.2); Alkaline Phosphatase 95 U/L (40-130); Anion Gap 14.4 (5-19); Aspartate Amino Transferase 24 U/L (0-40); Blood Urea Nitrogen 18 mg/dL (8-23); Calcium 8.6 mg/dL (8.5-10.5); Carbon Dioxide 24 mmol/L (22-29); Chloride 105 mmol/L (98-107); Globulin 2.7 g/dL (1.3-4.6); Glomerular Filtration Rate 74.1 mL/min (90-130); Glucose 107 mg/dL (65-115); Osmolality Calculated 290 mOsm/kg (285-295); Potassium 4.4 mmol/L (3.5-5.1); Sodium 139 mmol/L (136-145); Total Bilirubin 0.9 mg/dL (0.15-1.2); Total Protein 6.8 g/dL (6.6-8.7)
[2023-05-04] MEDS: sodium chloride 0.9% 250 ML 75 ML IV (10:39)
[2023-05-04] MEDS: palonosetron 0.25 mg/5 mL SDV IVP (10:41)
[2023-05-04] MEDS: atropine 1 mg/mL SDV 1 mL 0.4 MG IV (10:44)
[2023-05-04] MEDS: bevacizumab-awwb 400 MG, bevacizumab-awwb 10 MG in sodium chloride 0.9% (100 ml) 100 ML 240 MG IV (11:15)
[2023-05-04] MEDS: DEXTROSE 5% IV (11:58)
[2023-05-04] MEDS: leucovorin 800 MG in dextrose 5% 250 ML 166.67 MG IV (11:58)
[2023-05-04] MEDS: IRINOTECAN IV (11:58)
[2023-05-04] MEDS: fluorouraciL 2,900 MG, elastomeric pump 1 PUMP in sodium chloride 0.9% (100 ml) 34 ML IV (13:37)
[2023-05-04 13:45] VITALS: BP 122/91; PULSE 65; RESP 18; TEMP 36.1; O2SAT 98
[2023-05-06 11:15] VITALS: BP 132/90; PULSE 80; RESP 18; TEMP 35.7; O2SAT 98
== END 2023-05-13 23:59 | disposition home or self-care (01) ==
PROVIDERS: PCP Family Medicine; Visit Provider Internal Medicine Medical Oncology
DX: Z45.2 Encounter for adjustment and management of vascular access device (principal)
CPT/HCPCS: 96375; 96413; 96367 ×2; 96417; 96361; 80053; 81003; 85025; 96368; 96415; 96416; 96523; 99214; J0461; J0640; J1100; J1642; J2469; J7050; J7060; J9190; J9206; Q5107

== ENCOUNTER 2023-06-01 08:00 | Oncology outpatient (recurring) (ONCR) | payer MEDICARE, OTHER, SELFPAY ==
[2023-05-18 07:59] VITALS: BP 170/96; PULSE 70; RESP 18; TEMP 36.1; O2SAT 98
[2023-05-18 08:12] LABS: Basophils % 0.5 %; Eosinophils # 0.1 10^3/uL (0.0-0.8); Eosinophils % 1.7 %; Hematocrit 43.4 % (42.0-52.0); Hemoglobin 14.1 g/dL (11.7-16.6); Lymphocytes # 0.9 10^3/uL (0.8-4.8); Lymphocytes % 21.5 %; Mean Corpuscular HGB Conc 32.5 g/dL (30.0-36.0); Mean Corpuscular Hemoglobin 29.3 pg (28.0-34.0); Mean Corpuscular Volume 90.2 fl (80-94); Mean Platelet Volume 9.4 fL (7.4-10.4); Monocytes # 0.5 10^3/uL (0.2-0.9); Monocytes % 10.9 %; Neutrophils # 2.69 10^3/uL (1.8-7.7); Neutrophils % 64.9 %; Nucleated Red Blood Cells % 0 %; Platelet Count 157 10^3/cmm (130-400); Red Blood Count 4.81 10^6/uL (4.1-5.3); Red Cell Distribution Width 16.8 % (12.1-15.1); White Blood Count 4.1 10^3/uL (4.0-10.0)
[2023-05-18 08:34] LABS: Alanine Aminotransferase 17 U/L (0-41); Albumin Level 3.8 g/dL (3.5-5.2); Alkaline Phosphatase 76 U/L (40-130); Aspartate Amino Transferase 21 U/L (0-40); Blood Urea Nitrogen 10 mg/dL (8-23); Calcium 8.2 mg/dL (8.5-10.5); Carbon Dioxide 23 mmol/L (22-29); Chloride 106 mmol/L (98-107); Creatinine Clr Calc Pharmacy 96.8415; Globulin 2.3 g/dL (1.3-4.6); Glomerular Filtration Rate 95.8 mL/min (90-130); Glucose 96 mg/dL (65-115); Osmolality Calculated 287 mOsm/kg (285-295); Sodium 139 mmol/L (136-145); Total Bilirubin 0.7 mg/dL (0.15-1.2); Total Protein 6.1 g/dL (6.6-8.7)
[2023-05-18] MEDS: sodium chloride 0.9% 250 ML 75 ML IV (09:02)
[2023-05-18] MEDS: palonosetron 0.25 mg/5 mL SDV IVP (09:06)
[2023-05-18] MEDS: BEVACIZUMAB AWWB IV (09:24)
[2023-05-18] MEDS: SODIUM CHLORIDE 0.9% IV (09:24)
[2023-05-18] MEDS: atropine 1 mg/mL SDV 1 mL 0.4 MG IV (09:55)
[2023-05-18] MEDS: IRINOTECAN IV (10:16)
[2023-05-18] MEDS: leucovorin 820 MG in dextrose 5% 250 ML 166.67 MG IV (10:16)
[2023-05-18] MEDS: DEXTROSE 5% IV (10:16)
[2023-05-18] MEDS: SODIUM CHLORIDE IV (11:49)
[2023-05-18] MEDS: FLUOROURACIL IV (11:49)
[2023-05-18] MEDS: ELASTOMERIC PUMP PUMP IV (11:49)
[2023-05-18 11:54] VITALS: BP 185/91; PULSE 50; RESP 16; TEMP 36.6; O2SAT 97
[2023-06-01 07:53] VITALS: BP 134/84; PULSE 60; RESP 18; TEMP 36.5; O2SAT 95
[2023-06-01 08:11] LABS: Basophils % 0.9 %; Eosinophils # 0.1 10^3/uL (0.0-0.8); Eosinophils % 1.9 %; Hematocrit 44.1 % (42.0-52.0); Hemoglobin 14.2 g/dL (11.7-16.6); Lymphocytes # 0.8 10^3/uL (0.8-4.8); Lymphocytes % 17.4 %; Mean Corpuscular HGB Conc 32.2 g/dL (30.0-36.0); Mean Corpuscular Hemoglobin 29.2 pg (28.0-34.0); Mean Corpuscular Volume 90.6 fl (80-94); Mean Platelet Volume 10.5 fL (7.4-10.4); Monocytes # 0.5 10^3/uL (0.2-0.9); Monocytes % 11.4 %; Neutrophils # 3.16 10^3/uL (1.8-7.7); Nucleated Red Blood Cells % 0 %; Platelet Count 158 10^3/cmm (130-400); Red Blood Count 4.87 10^6/uL (4.1-5.3); White Blood Count 4.7 10^3/uL (4.0-10.0)
[2023-06-01 08:29] LABS: Alanine Aminotransferase 21 U/L (0-41); Alkaline Phosphatase 82 U/L (40-130); Anion Gap 13.2 (5-19); Aspartate Amino Transferase 21 U/L (0-40); Blood Urea Nitrogen 12 mg/dL (8-23); Calcium 8.2 mg/dL (8.5-10.5); Carbon Dioxide 24 mmol/L (22-29); Chloride 107 mmol/L (98-107); Globulin 2.2 g/dL (1.3-4.6); Glomerular Filtration Rate 83.7 mL/min (90-130); Glucose 93 mg/dL (65-115); Osmolality Calculated 289 mOsm/kg (285-295); Potassium 4.2 mmol/L (3.5-5.1); Sodium 140 mmol/L (136-145); Total Bilirubin 0.7 mg/dL (0.15-1.2); Total Protein 6.2 g/dL (6.6-8.7)
[2023-06-01] MEDS: sodium chloride 0.9% 250 ML 75 ML IV (10:00)
[2023-06-01] MEDS: palonosetron 0.25 mg/5 mL SDV IVP (10:02)
[2023-06-01] MEDS: atropine 1 mg/mL SDV 1 mL 0.4 MG IV (10:04)
[2023-06-01] MEDS: SODIUM CHLORIDE 0.9% IV (10:38)
[2023-06-01] MEDS: BEVACIZUMAB AWWB IV (10:38)
[2023-06-01] MEDS: IRINOTECAN IV (11:14)
[2023-06-01] MEDS: DEXTROSE 5% IV (11:14)
[2023-06-01] MEDS: leucovorin 820 MG in dextrose 5% 250 ML 166.67 MG IV (11:16)
[2023-06-01] MEDS: SODIUM CHLORIDE IV (13:10)
[2023-06-01] MEDS: ELASTOMERIC PUMP PUMP IV (13:10)
[2023-06-01] MEDS: FLUOROURACIL IV (13:10)
[2023-06-01 15:08] VITALS: BP 133/91; PULSE 59; RESP 16; TEMP 36.7; O2SAT 98
== END 2023-06-01 23:59 | disposition home or self-care (01) ==
PROVIDERS: PCP Family Medicine; Visit Provider Internal Medicine Medical Oncology
DX: C20 Malignant neoplasm of rectum (principal); Z95.828 Presence of other vascular implants and grafts; Z51.11 Encounter for antineoplastic chemotherapy; C78.6 Secondary malignant neoplasm of retroperitoneum and peritoneum; C78.7 Secondary malignant neoplasm of liver and intrahepatic bile duct; Z45.2 Encounter for adjustment and management of vascular access device
CPT/HCPCS: 80053; 85025; 96367; 96368; 96375; 96413; 96415; 96416; 96417; 96523; 99214; J0461; J0640; J1100; J1642; J2469; J7050; J7060; J9190; J9206; Q5107

== ENCOUNTER 2023-06-03 11:00 | Oncology outpatient (recurring) (ONCR) | payer MEDICARE, OTHER, SELFPAY ==
[2023-06-03 11:13] VITALS: BP 149/93; PULSE 69; RESP 16; TEMP 36.6; O2SAT 99
== END 2023-06-13 23:59 | disposition home or self-care (01) ==
PROVIDERS: PCP Family Medicine; Visit Provider Internal Medicine Medical Oncology
DX: Z45.2 Encounter for adjustment and management of vascular access device (principal)
CPT/HCPCS: 96523; J1642

== ENCOUNTER 2023-06-17 11:00 | Oncology outpatient (recurring) (ONCR) | payer MEDICARE, OTHER, SELFPAY ==
[2023-06-15 08:11] VITALS: BMI 25.5
[2023-06-15 08:12] VITALS: BP 161/92; PULSE 65; RESP 18; TEMP 36.3; O2SAT 98
[2023-06-15 08:21] LABS: Basophils % 0.6 %; Eosinophils # 0.1 10^3/uL (0.0-0.8); Eosinophils % 2.4 %; Hematocrit 44.2 % (42.0-52.0); Hemoglobin 14.5 g/dL (11.7-16.6); Lymphocytes # 0.9 10^3/uL (0.8-4.8); Lymphocytes % 17.4 %; Mean Corpuscular HGB Conc 32.8 g/dL (30.0-36.0); Mean Corpuscular Hemoglobin 29.6 pg (28.0-34.0); Mean Corpuscular Volume 90.2 fl (80-94); Mean Platelet Volume 10.3 fL (7.4-10.4); Monocytes # 0.5 10^3/uL (0.2-0.9); Monocytes % 10.3 %; Neutrophils % 68.9 %; Nucleated Red Blood Cells % 0 %; Platelet Count 183 10^3/cmm (130-400); Red Cell Distribution Width 16.8 % (12.1-15.1); White Blood Count 4.9 10^3/uL (4.0-10.0)
[2023-06-15 08:52] LABS: Alanine Aminotransferase 26 U/L (0-41); Albumin Level 4.1 g/dL (3.5-5.2); Alkaline Phosphatase 100 U/L (40-130); Aspartate Amino Transferase 25 U/L (0-40); Blood Urea Nitrogen 17 mg/dL (8-23); Carbon Dioxide 25 mmol/L (22-29); Chloride 102 mmol/L (98-107); Globulin 2.5 g/dL (1.3-4.6); Glomerular Filtration Rate 83.7 mL/min (90-130); Glucose 122 mg/dL (65-115); Osmolality Calculated 289 mOsm/kg (285-295); Sodium 138 mmol/L (136-145); Total Bilirubin 0.8 mg/dL (0.15-1.2); Total Protein 6.6 g/dL (6.6-8.7)
[2023-06-15 08:53] LABS: Anion Gap 15.1 (5-19); Potassium 4.1 mmol/L (3.5-5.1)
[2023-06-15] MEDS: sodium chloride 0.9% 250 ML 75 ML IV (10:13)
[2023-06-15] MEDS: palonosetron 0.25 mg/5 mL SDV IVP (10:14)
[2023-06-15] MEDS: BEVACIZUMAB AWWB IV (11:00)
[2023-06-15] MEDS: SODIUM CHLORIDE 0.9% IV (11:00)
[2023-06-15] MEDS: dextrose 5% 250 ML 75 ML IV (11:38)
[2023-06-15] MEDS: DEXTROSE 5% IV (11:38)
[2023-06-15] MEDS: IRINOTECAN IV (11:38)
[2023-06-15] MEDS: leucovorin 820 MG in dextrose 5% 250 ML 221.33 MG IV (11:39)
[2023-06-15] MEDS: atropine 1 mg/mL SDV 1 mL 0.4 MG IV (13:22)
[2023-06-15] MEDS: ELASTOMERIC PUMP PUMP IV (13:26)
[2023-06-15] MEDS: FLUOROURACIL IV (13:26)
[2023-06-15] MEDS: SODIUM CHLORIDE IV (13:26)
[2023-06-15 13:28] VITALS: BP 151/74; PULSE 57; TEMP 35.7
[2023-06-17 10:56] VITALS: BP 120/72; PULSE 73; RESP 18; TEMP 35.5; O2SAT 96
== END 2023-07-14 23:59 | disposition home or self-care (01) ==
PROVIDERS: PCP Family Medicine; Visit Provider Internal Medicine Medical Oncology
DX: Z45.2 Encounter for adjustment and management of vascular access device (principal)
CPT/HCPCS: 80053; 85025; 96367; 96368; 96375; 96413; 96415; 96416; 96417; 96523; J0461; J0640; J1100; J1642; J2469; J7050; J7060; J9190; J9206; Q5107

== ENCOUNTER 2023-07-20 09:18 | Oncology outpatient (recurring) (ONCR) | payer MEDICARE, OTHER, SELFPAY | END 2023-08-13 23:59 | disposition home or self-care (01) | PROVIDERS: PCP Family Medicine; Visit Provider Internal Medicine Medical Oncology | DX: C20 Malignant neoplasm of rectum; C78.6 Secondary malignant neoplasm of retroperitoneum and peritoneum; Z79.899 Other long term (current) drug therapy | CPT/HCPCS: 99213 ==

== ENCOUNTER 2023-08-22 07:51 | Oncology outpatient (recurring) (ONCR) | payer MEDICARE, OTHER, SELFPAY ==
[2023-08-22 07:56] VITALS: BP 172/102; PULSE 70; RESP 16; TEMP 35.9; O2SAT 98
[2023-08-22 08:14] LABS: Basophils % 0.5 %; Eosinophils # 0.2 10^3/uL (0.0-0.8); Eosinophils % 2.8 %; Hematocrit 48.9 % (37-53); Lymphocytes # 1.1 10^3/uL (0.8-4.8); Lymphocytes % 19.5 %; Mean Corpuscular HGB Conc 32.3 g/dL (30-55); Mean Corpuscular Hemoglobin 29.9 pg (27-33); Mean Corpuscular Volume 92.6 fl (82-101); Mean Platelet Volume 10.8 fL (7.4-10.4); Monocytes # 0.5 10^3/uL (0.2-0.9); Monocytes % 9.4 %; Neutrophils # 3.88 10^3/uL (1.8-7.7); Neutrophils % 67.5 %; Nucleated Red Blood Cells % 0 %; Platelet Count 158 10^3/cmm (157-399); Red Blood Count 5.28 10^6/uL (3.85-5.65); Red Cell Distribution Width 15.2 % (12.1-15.1); White Blood Count 5.75 10^3/uL (3.29-11.43)
[2023-08-22 08:36] LABS: Alanine Aminotransferase 18 U/L (0-41); Albumin Level 4.1 g/dL (3.5-5.2); Alkaline Phosphatase 80 U/L (40-130); Aspartate Amino Transferase 23 U/L (0-40); Blood Urea Nitrogen 15 mg/dL (8-23); Calcium 8.6 mg/dL (8.5-10.5); Carbon Dioxide 27 mmol/L (22-29); Chloride 102 mmol/L (98-107); Globulin 2.5 g/dL (1.3-4.6); Glomerular Filtration Rate 83.4 mL/min (90-130); Glucose 92 mg/dL (65-115); Osmolality Calculated 282 mOsm/kg (285-295); Sodium 136 mmol/L (136-145); Total Bilirubin 1.1 mg/dL (0.15-1.2); Total Protein 6.6 g/dL (6.6-8.7)
[2023-08-22 08:38] LABS: Anion Gap 11.1 (5-19); Potassium 4.1 mmol/L (3.5-5.1)
== END 2023-09-13 23:59 | disposition home or self-care (01) ==
PROVIDERS: Nurse Practitioner Family; PCP Family Medicine; Visit Provider Internal Medicine Medical Oncology
DX: Z45.2 Encounter for adjustment and management of vascular access device (principal); Z51.11 Encounter for antineoplastic chemotherapy; C20 Malignant neoplasm of rectum; Z79.899 Other long term (current) drug therapy; F17.290 Nicotine dependence, other tobacco product, uncomplicated
CPT/HCPCS: 80053; 85025; 99214; J1642

== ENCOUNTER 2023-09-05 08:11 | Outpatient (CLI) | payer MEDICARE, OTHER, SELFPAY ==
--- NOTE | 2023-09-05 09:30 | CT_ITS ---
WS: [id number] CT CHEST, ABDOMEN, AND PELVIS TECHNIQUE: Contrast-enhanced CT of the chest, abdomen, and pelvis with coronal and sagittal reformatt ed images. CLINICAL INFORMATION: compare to previous COMPARISON: CT chest abdomen pelvis 04/22/2021 and PET/CT 04/17/2022 DLP: 945.[address] scans at [facility] use at least one of these dose optimization techniques: automated e xposure control; mA and/or kV adjustment per patient size (includes targeted exams where dose is matc hed to clinical indication); or iterative reconstruction. CT CHEST: Subsegmental atelectasis and hazy opacity in the lingula unchanged. 1 or 2 tiny 3 to 4 mm n odules in the lower lobes likely incidental but could be followed up in [address] A few calcified granulomas. Slight tree-in-bud nodularity in the RIGHT middle lobe. Moderate chronic emphysematous changes. No focal consolidation pleural fluid. Stable nodules left thy roid. Normal caliber thoracic aorta. Proximal main pulmonary arteries are normal. No mediastinal or hilar l ymphadenopathy. No axillary lymphadenopathy. Normal thoracic spine. Hypertrophic changes thoracic spi ne. CT ABDOMEN AND PELVIS: Diffuse fatty infiltration of the liver. Portal vein and splenic vein are patent. Normal gallbladde r. RIGHT hepatic cyst slightly increased in size measuring 3.2 x 2.9 cm. A few additional tiny low-at tenuation lesions in the liver too small to characterize but appear similar to 202. Adrenal glands a re normal. Normal renal parenchymal enhancement. No hydronephrosis. Small LEFT renal cyst. Normal domitila iber abdominal aorta. No adenopathy in the abdomen or pelvis. Stable splenomegaly. Mild circumferential thickening of the rectosigmoid is unchanged in appearance since 2020 consistent with treated neoplasm. Sigmoid diverticulosis. Grade 1 anterolisthesis L4 on L5. Stable sclerotic lesion in left ilium IMPRESSION: 1. No evidence of new or progressive metastatic disease in the chest abdomen or pelvis. 2. 2 or 3 tiny nodules in the lung bases. This can be followed up in [address] 3. Slight tree-in-bud nodularity in the RIGHT middle lobe likely inflammatory. 4. Diffuse fatty filtration of the liver. Incidental hepatic cyst slightly increased in size measuri ng 3.1 x 2.9 cm. 5. A few additional tiny low-attenuation lesions in the liver are too small to definitively characte rize appear unchanged. 6. Stable splenomegaly. 7. No adenopathy in the chest abdomen or pelvis. 8. Sigmoid diverticulosis.
[2023-09-05] MEDS: iohexol 350 mg/mL 500 mL Btl (per mL) PO (09:32)
[2023-09-05] MEDS: iohexol 350 mg/mL 500 mL Btl (per mL) IV (09:43)
== END 2023-09-05 08:12 | disposition home or self-care (01) ==
PROVIDERS: PCP Family Medicine; Visit Provider Internal Medicine Medical Oncology
DX: C20 Malignant neoplasm of rectum (principal); C78.6 Secondary malignant neoplasm of retroperitoneum and peritoneum; R91.8 Other nonspecific abnormal finding of lung field
CPT/HCPCS: 71260; 74177; Q9967

== ENCOUNTER 2023-10-17 09:40 | Oncology outpatient (recurring) (ONCR) | payer MEDICARE, OTHER, SELFPAY ==
[2023-10-17 09:47] VITALS: BP 161/99; PULSE 64; RESP 16; TEMP 35.9; O2SAT 97
[2023-10-17 10:03] LABS: Basophils % 0.6 %; Eosinophils # 0.2 10^3/uL (0.0-0.8); Hematocrit 50.6 % (37-53); Lymphocytes % 15.3 %; Mean Corpuscular HGB Conc 32.8 g/dL (30-55); Mean Corpuscular Hemoglobin 29.7 pg (27-33); Mean Corpuscular Volume 90.5 fl (82-101); Monocytes # 0.5 10^3/uL (0.2-0.9); Neutrophils # 4.88 10^3/uL (1.8-7.7); Neutrophils % 72.7 %; Nucleated Red Blood Cells % 0 %; Platelet Count 158 10^3/cmm (157-399); Red Blood Count 5.59 10^6/uL (3.85-5.65); Red Cell Distribution Width 14.4 % (12.1-15.1); White Blood Count 6.72 10^3/uL (3.29-11.43)
[2023-10-17 10:25] LABS: Alanine Aminotransferase 11 U/L (0-41); Albumin Level 4.2 g/dL (3.5-5.2); Alkaline Phosphatase 94 U/L (40-130); Chloride 105 mmol/L (98-107); Sodium 140 mmol/L (136-145)
[2023-10-17 11:20] LABS: Anion Gap 17.1 (5-19); Aspartate Amino Transferase 14 U/L (0-40); Blood Urea Nitrogen 10 mg/dL (8-23); Calcium 8.8 mg/dL (8.5-10.5); Carbon Dioxide 22 mmol/L (22-29); Globulin 2.7 g/dL (1.3-4.6); Glomerular Filtration Rate 95.6 mL/min (90-130); Glucose 103 mg/dL (65-115); Osmolality Calculated 289 mOsm/kg (285-295); Potassium 4.1 mmol/L (3.5-5.1); Total Bilirubin 1.4 mg/dL (0.15-1.2); Total Protein 6.9 g/dL (6.6-8.7)
[2023-10-17] MEDS: flu vacc pf 2023-24 (6 mos+) 60 MCG IM (11:40)
== END 2023-11-13 23:59 | disposition home or self-care (01) ==
PROVIDERS: PCP Family Medicine; Visit Provider Internal Medicine Medical Oncology
DX: Z45.2 Encounter for adjustment and management of vascular access device (principal); C20 Malignant neoplasm of rectum; Z79.899 Other long term (current) drug therapy; F17.290 Nicotine dependence, other tobacco product, uncomplicated; Z23 Encounter for immunization
CPT/HCPCS: 36591; 80053; 85025; 90471; 90686; 99214; J1642

== ENCOUNTER → 2023-11-29 09:14 | Outpatient (BNVA) | payer MEDICARE, OTHER, SELFPAY | PROVIDERS: PCP Family Medicine; Visit Provider Surgery | DX: C20 Malignant neoplasm of rectum; K59.00 Constipation, unspecified | CPT/HCPCS: 99204; 99214 ==

== ENCOUNTER 2023-12-14 08:32 | Day surgery (SDC) | payer MEDICARE, OTHER, SELFPAY ==
[2023-12-14 08:49] VITALS: BP 169/104; PULSE 92; RESP 18; TEMP 36.4; O2SAT 95
[2023-12-14] MEDS: sodium chloride 0.9% 1,000 ML 30 ML IV (08:50)
--- NOTE | 2023-12-14 09:20 | P.ANESASSM_ITS ---
Pre-Anesthetic Assessment Height/Weight: Height 1.83 m Weight 77.564 kg Temp Pulse Resp BP Pulse Ox O2 Del Method 97.6 F 92 18 169/104 95 Room Air 12/14/23 08:49 12/14/23 08:49 12/14/23 08:49 12/14/23 08:49 12/14/23 08:49 12/14/23 08:49 Preop Diagnosis: rectal cancer Operation Date: 12/14/23 09:45 Proposed Procedures p [id number] colonoscopy C20,K59.00(Not Applicable) - Devante Pastrana DO Familial anesthetic complications: None Was Beta Marlyn taken within 24 hours: N/A Was Clonidine taken within 24 hours: N/A Last intake: Intake Last Liquid Date 12/13/23 Last Liquid Time 18:00 Last Solid Date 12/12/23 Last Solid Time 18:00 Social No alcohol and No tobacco Exam alert, oriented x 3 and clear to auscultation bilaterally Airway Mallampati: Class II Dentition: full History/ROS No significant history except as noted Pulmonary None reported CV/HEM Hypertension None reported Hepatic None reported GI hx rectal cancer Metabolic None reported Musc/skel None reported Neuropsych None reported Anesthetic Plan ASA status: 2 Anesthesia: Anesthesia Evaluation and MAC Risk of > 500 ml blood loss (7ml/kg in children): No Medications/Allergies Home Medications Medication Instructions Recorded Confirmed Last Taken Type lisinopril 5 mg tablet 5 mg PO DAILY 04/21/23 12/12/23 12/05/23 History omeprazole 20 mg capsule,delayed 20 mg PO DAILY #30 caps 07/06/23 12/12/23 12/05/23 Rx release hydrocodone 10 mg-acetaminophen 1 tab PO Q4H PRN pain 30 days #180 10/17/23 12/12/23 12/05/23 Rx 325 mg tablet tabs meloxicam 15 mg tablet 15 mg PO DAILY #90 tabs 11/22/23 12/12/23 12/05/23 Rx Allergies Allergy/AdvReac Type Severity Reaction Status Date / Time No Known Allergies Allergy Verified 11/29/23 09:15 [facility] Anesthesia Medical History (Updated 11/29/23 @ 10:26 by Devante Pastrana DO) Rectal cancer Secondary malignant neoplasm of retroperitoneum and peritoneum Malignant neoplasm of rectum GERD (gastroesophageal reflux disease) Nicotine dependence Hypertension Hyperlipidemia Surgical History H/O colonoscopy with polypectomy (~04/2019) S/P biopsy (~11/2019) CT directed biopsy of peritoneal mass Status post surgical removal of malignant neoplasm of skin Port-A-Cath in place placed in L subclavian 11/15/2019 Hx of circumcision Hx of tonsillectomy Family History Father Diabetes CAD (coronary artery disease) Mother Dementia Stroke Grandfather Lung disease Other Breast cancer Heart disease Parkinson disease Denies family history of Clotting disorder Hyperlipidemia Psychiatric illness Chronic kidney disease (CKD) Suicide Anesthesia complication Bleeding disorder Hypertension Social History Smoking and tobacco/nicotine status: light tobacco/nicotine user (cigar ) cigars Cigars smoked per week: 20 Alcohol intake: current Alcohol intake frequency: few times a week Alcohol type: beer Substance/Drug Use: former Date of last use: THC Lives independently: Yes Marital status: Current occupational status: employed 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
--- NOTE | 2023-12-14 09:49 | W.PM.OPSUD ---
Surgery/Procedure H&P Update DATE OF PROCEDURE: December 14, 2023 DATE H&P PERFORMED: 11/29/23 H&P UPDATE INFORMATION: I have reviewed H&P completed within last 30 days, I have examined patient prior to procedure and No changes to prior documentation PREOP DIAGNOSIS: rectal cancer PLANNED PROCEDURE: Operation Date: 12/14/23 09:45 Proposed Procedures p [id number] colonoscopy C20,K59.00(Not Applicable) - Devante Pastrana DO
[2023-12-14 09:59] VITALS: BP 118/74; PULSE 73; RESP 16; TEMP 36.2; O2SAT 97
[2023-12-14 10:04] VITALS: BP 113/66; PULSE 73; RESP 18; O2SAT 95
[2023-12-14 10:14] VITALS: BP 138/83; PULSE 77; RESP 18; O2SAT 97
--- NOTE | 2023-12-14 10:27 | PC.NURSE ---
1024 prior to de-accessing port, port flushed with 20cc of NS
--- NOTE | 2023-12-14 10:45 | ANE.PACU2 ---
Inpatient post-anesthesia follow up: Airway intact: Yes Vital signs: Temperature 97.2 F Pulse Rate 77 Respiratory Rate 18 Blood Pressure 138/83 Pulse Oximetry 97 Oxygen Delivery Me thod Room Air Oxygen Flow Rate Fraction of Inspir ed Oxygen Hydration adequate: Yes Nausea and vomiting: No Pain level: 1 Mental status: Baseline
== END 2023-12-14 10:48 | disposition home or self-care (01) ==
PROVIDERS: Family Provider Internal Medicine Medical Oncology; PCP Family Medicine; Visit Provider Surgery
PROC: 0DJD8ZZ Inspection of Lower Intestinal Tract, Via Natural or Artificial Opening Endoscopic (ICD-10-PCS; CPT 45330; 2023-12-14 09:45)
DX: C20 Malignant neoplasm of rectum (principal); K64.8 Other hemorrhoids; I10 Essential (primary) hypertension; E78.5 Hyperlipidemia, unspecified; F17.290 Nicotine dependence, other tobacco product, uncomplicated
CPT/HCPCS: 45305; 88305; J2704; J7030

== ENCOUNTER 2023-12-14 14:45 | Oncology outpatient (recurring) (ONCR) | payer MEDICARE, OTHER, SELFPAY | END 2023-12-14 23:59 | disposition home or self-care (01) | PROVIDERS: PCP Family Medicine; Visit Provider Internal Medicine Medical Oncology | DX: Z45.2 Encounter for adjustment and management of vascular access device (principal) | CPT/HCPCS: 96523; J1642 ==

== ENCOUNTER → 2023-12-29 10:06 | Outpatient (BNVA) | payer MEDICARE, OTHER, SELFPAY | PROVIDERS: Family Provider Internal Medicine Medical Oncology; PCP Family Medicine; Referring Provider Family Medicine; Visit Provider Surgery | DX: C20 Malignant neoplasm of rectum (principal); K59.00 Constipation, unspecified | CPT/HCPCS: 99214 ==

== ENCOUNTER 2024-01-04 08:29 | Outpatient (CLI) | payer MEDICARE, OTHER, SELFPAY ==
--- NOTE | 2024-01-04 09:45 | CT_ITS ---
WS: [id number] CT CHEST, ABDOMEN, AND PELVIS TECHNIQUE: Contrast-enhanced CT of the chest, abdomen, and pelvis with coronal and sagittal reformatt ed images. CLINICAL INFORMATION: rectal cancer COMPARISON: CT 09/05/2023 DLP: 873.[address] scans at [facility] use at least one of these dose optimization techniques: automated e xposure control; mA and/or kV adjustment per patient size (includes targeted exams where dose is matc hed to clinical indication); or iterative reconstruction. CT CHEST: A few scattered subcentimeter pulmonary nodules some of which are new compared to previous and a few have increased slightly in size. Largest nodule in the LEFT upper lobe measuring 5 mm, RIGHT upper lo be measuring 4 mm and RIGHT lower lobe along the fissure measuring 5 mm. Small RIGHT pleural effusion with compressive atelectasis is new from previous. Slight tree-in-bud nodularity in the RIGHT middle lobe. Moderate chronic emphysematous changes. Sta ble nodules left thyroid. Normal caliber thoracic aorta. Proximal main pulmonary arteries are normal. No mediastinal or hilar lymphadenopathy. No axillary lymphadenopathy. Normal thoracic spine. Hypertr ophic changes thoracic spine. CT ABDOMEN AND PELVIS: New heterogeneously enhancing lesions in the RIGHT hepatic lobe and dome of the liver suspicious for metastatic disease. These are new from previous. Stable hepatic cyst in the inferior RIGHT hepatic lo be. Small amount of perihepatic and perisplenic ascites. Small esophageal hernia. Diffuse induration with nodularity in the ventral abdominal mesentery compatible with peritoneal car cinomatosis. This is also new from previous. Normal pancreatic parenchymal enhancement. Normal portal vein and splenic vein. Normal caliber abdominal aorta. Adrenal glands are normal. No hydronephrosis in either kidney. Small renal cysts. Diffuse rectal wall thickening compatible with treated neoplasm is similar in appearance. Diverticulosis. Induration in the perirectal fat likely due to treatment re lated changes. Sclerotic lesion LEFT ilium is stable. Stable grade 1 anterolisthesis L4 on L5. IMPRESSION: 1. Evidence of progressed metastatic disease in the chest abdomen and pelvis. 2. New heterogeneously enhancing RIGHT hepatic lobe and dome of the liver lesions compatible with me tastatic disease. Largest lesion in the dome of the liver measures 3.1 cm. 3. Peritoneal carcinomatosis has developed compared to previous. 4. Small amount of perihepatic and perisplenic ascites. 5. Diffuse induration in the perirectal fat with rectal wall thickening likely due to treatment rela mihaela changes. 6. Small RIGHT pleural effusion with compressive atelectasis RIGHT lower lobe is new. 7. Several new subcentimeter pulmonary nodules suspicious for metastatic disease with slight increas e in size of the previously described tiny subcentimeter nodules. Notified Tiago Edwards MD at 01/05/2024 10:05 AM.
[2024-01-04] MEDS: iohexol 350 mg/mL 500 mL Btl (per mL) PO (10:03)
[2024-01-04] MEDS: iohexol 350 mg/mL 500 mL Btl (per mL) IV (10:03)
== END 2024-01-04 08:30 | disposition home or self-care (01) ==
LOC: RAD 08:29
PROVIDERS: Family Provider Internal Medicine Medical Oncology; PCP Family Medicine; Visit Provider Internal Medicine Medical Oncology
DX: C78.6 Secondary malignant neoplasm of retroperitoneum and peritoneum (principal); C79.89 Secondary malignant neoplasm of other specified sites; C20 Malignant neoplasm of rectum; K76.9 Liver disease, unspecified; R18.8 Other ascites; J90 Pleural effusion, not elsewhere classified; R91.8 Other nonspecific abnormal finding of lung field
CPT/HCPCS: 71260; 74177; Q9967

== ENCOUNTER 2024-01-10 11:30 | Oncology outpatient (recurring) (ONCR) | payer MEDICARE, OTHER, SELFPAY ==
[2023-12-26 13:31] LABS: Basophils # 0.1 10^3/uL (0.0-0.1); Basophils % 0.7 %; Eosinophils # 0.3 10^3/uL (0.0-0.8); Eosinophils % 3.5 %; Hematocrit 47.7 % (37-53); Lymphocytes # 0.9 10^3/uL (0.8-4.8); Lymphocytes % 11.5 %; Mean Corpuscular HGB Conc 32.5 g/dL (30-55); Mean Corpuscular Hemoglobin 29.1 pg (27-33); Mean Corpuscular Volume 89.5 fl (82-101); Mean Platelet Volume 9.4 fL (7.4-10.4); Monocytes # 0.7 10^3/uL (0.2-0.9); Monocytes % 8.3 %; Neutrophils # 6.09 10^3/uL (1.8-7.7); Neutrophils % 75.3 %; Nucleated Red Blood Cells % 0 %; Platelet Count 210 10^3/cmm (157-399); Red Blood Count 5.33 10^6/uL (3.85-5.65); Red Cell Distribution Width 14.8 % (12.1-15.1); White Blood Count 8.09 10^3/uL (3.29-11.43)
[2023-12-26 13:56] LABS: Alanine Aminotransferase 10 U/L (0-41); Albumin Level 3.9 g/dL (3.5-5.2); Alkaline Phosphatase 102 U/L (40-130); Anion Gap 10.5 (5-19); Aspartate Amino Transferase 14 U/L (0-40); Blood Urea Nitrogen 9 mg/dL (8-23); Calcium 8.1 mg/dL (8.5-10.5); Carbon Dioxide 29 mmol/L (22-29); Chloride 103 mmol/L (98-107); Globulin 2.9 g/dL (1.3-4.6); Glomerular Filtration Rate 95.6 mL/min (90-130); Glucose 98 mg/dL (65-115); Osmolality Calculated 287 mOsm/kg (285-295); Potassium 3.5 mmol/L (3.5-5.1); Sodium 139 mmol/L (136-145); Total Bilirubin 0.9 mg/dL (0.15-1.2); Total Protein 6.8 g/dL (6.6-8.7)
[2024-01-10 11:29] LABS: Basophils # 0.1 10^3/uL (0.0-0.1); Basophils % 0.7 %; Eosinophils # 0.3 10^3/uL (0.0-0.8); Eosinophils % 4.3 %; Hematocrit 49.2 % (37-53); Lymphocytes # 1.1 10^3/uL (0.8-4.8); Lymphocytes % 14.2 %; Mean Corpuscular HGB Conc 33.1 g/dL (30-55); Mean Corpuscular Hemoglobin 28.9 pg (27-33); Mean Corpuscular Volume 87.2 fl (82-101); Mean Platelet Volume 9.9 fL (7.4-10.4); Monocytes # 0.7 10^3/uL (0.2-0.9); Monocytes % 8.8 %; Neutrophils # 5.45 10^3/uL (1.8-7.7); Neutrophils % 71.6 %; Nucleated Red Blood Cells % 0 %; Platelet Count 221 10^3/cmm (157-399); Red Blood Count 5.64 10^6/uL (3.85-5.65); Red Cell Distribution Width 14.8 % (12.1-15.1); White Blood Count 7.61 10^3/uL (3.29-11.43)
[2024-01-10 11:53] LABS: Alanine Aminotransferase 13 U/L (0-41); Albumin Level 4.3 g/dL (3.5-5.2); Alkaline Phosphatase 117 U/L (40-130); Anion Gap 16.2 (5-19); Aspartate Amino Transferase 21 U/L (0-40); Blood Urea Nitrogen 14 mg/dL (8-23); Calcium 8.8 mg/dL (8.5-10.5); Carbon Dioxide 24 mmol/L (22-29); Chloride 103 mmol/L (98-107); Creatinine Clr Calc Pharmacy 85.9678; Globulin 2.9 g/dL (1.3-4.6); Glomerular Filtration Rate 83.4 mL/min (90-130); Glucose 130 mg/dL (65-115); Osmolality Calculated 290 mOsm/kg (285-295); Potassium 4.2 mmol/L (3.5-5.1); Sodium 139 mmol/L (136-145); Total Bilirubin 1.2 mg/dL (0.15-1.2); Total Protein 7.2 g/dL (6.6-8.7)
== END 2024-01-12 23:59 | disposition home or self-care (01) ==
PROVIDERS: Family Provider Internal Medicine Medical Oncology; PCP Family Medicine; Visit Provider Internal Medicine Medical Oncology
DX: Z45.2 Encounter for adjustment and management of vascular access device (principal)
CPT/HCPCS: 36591; 71260; 74177; 80053; 85025; 99214; J1642; Q9967

== ENCOUNTER 2024-02-07 08:15 | Oncology outpatient (recurring) (ONCR) | payer MEDICARE, OTHER, SELFPAY ==
[2024-01-24 08:25] LABS: Basophils # 0.1 10^3/uL (0.0-0.1); Basophils % 0.6 %; Eosinophils # 0.2 10^3/uL (0.0-0.8); Eosinophils % 2.8 %; Hematocrit 44.8 % (37-53); Lymphocytes # 0.6 10^3/uL (0.8-4.8); Lymphocytes % 7.3 %; Mean Corpuscular HGB Conc 32.8 g/dL (30-55); Mean Corpuscular Hemoglobin 28.9 pg (27-33); Mean Platelet Volume 9.5 fL (7.4-10.4); Monocytes # 1.1 10^3/uL (0.2-0.9); Monocytes % 12.3 %; Neutrophils # 6.63 10^3/uL (1.8-7.7); Neutrophils % 76.5 %; Nucleated Red Blood Cells % 0 %; Platelet Count 230 10^3/cmm (157-399); Red Blood Count 5.09 10^6/uL (3.85-5.65); Red Cell Distribution Width 14.6 % (12.1-15.1); White Blood Count 8.65 10^3/uL (3.29-11.43)
[2024-01-24 09:01] LABS: Alanine Aminotransferase 22 U/L (0-41); Albumin Level 3.7 g/dL (3.5-5.2); Alkaline Phosphatase 120 U/L (40-130); Anion Gap 12.8 (5-19); Aspartate Amino Transferase 27 U/L (0-40); Blood Urea Nitrogen 9 mg/dL (8-23); Calcium 8.2 mg/dL (8.5-10.5); Carbon Dioxide 28 mmol/L (22-29); Chloride 101 mmol/L (98-107); Globulin 2.8 g/dL (1.3-4.6); Glomerular Filtration Rate 133.2 mL/min (90-130); Glucose 109 mg/dL (65-115); Osmolality Calculated 285 mOsm/kg (285-295); Potassium 3.8 mmol/L (3.5-5.1); Sodium 138 mmol/L (136-145); Total Bilirubin 1.7 mg/dL (0.15-1.2); Total Protein 6.5 g/dL (6.6-8.7)
[2024-01-24] MEDS: sodium chloride 0.9% 250 ML 75 ML IV (10:04)
[2024-01-24] MEDS: palonosetron 0.25 mg/5 mL SDV IVP (10:04)
[2024-01-24] MEDS: bevacizumab-awwb 400 MG, bevacizumab-awwb 10 MG in sodium chloride 0.9% (100 ml) 100 ML 232 MG IV (10:37)
[2024-01-24] MEDS: atropine 1 mg/mL SDV 1 mL 0.400000000000000022 MG IV (11:26)
[2024-01-24] MEDS: IRINOTECAN IV (11:43)
[2024-01-24] MEDS: leucovorin 820 MG in dextrose 5% 250 ML 166.669999999999987 MG IV (11:43)
[2024-01-24] MEDS: DEXTROSE 5% IV (11:43)
[2024-01-24] MEDS: FLUOROURACIL IV (13:31)
[2024-01-24] MEDS: SODIUM CHLORIDE IV (13:31)
[2024-01-24] MEDS: ELASTOMERIC PUMP PUMP IV (13:31)
[2024-01-26 11:42] VITALS: BP 144/93; PULSE 82; TEMP 36.2; O2SAT 94
[2024-02-07 08:15] LABS: Basophils % 0.8 %; Eosinophils # 0.2 10^3/uL (0.0-0.8); Eosinophils % 3.5 %; Hematocrit 44.3 % (37-53); Lymphocytes # 0.7 10^3/uL (0.8-4.8); Lymphocytes % 14.5 %; Mean Corpuscular HGB Conc 32.5 g/dL (30-55); Mean Corpuscular Hemoglobin 28.6 pg (27-33); Mean Corpuscular Volume 88.1 fl (82-101); Monocytes # 0.4 10^3/uL (0.2-0.9); Monocytes % 8.8 %; Neutrophils # 3.55 10^3/uL (1.8-7.7); Neutrophils % 72.2 %; Nucleated Red Blood Cells % 0 %; Platelet Count 281 10^3/cmm (157-399); Red Blood Count 5.03 10^6/uL (3.85-5.65); Red Cell Distribution Width 14.6 % (12.1-15.1); White Blood Count 4.91 10^3/uL (3.29-11.43)
[2024-02-07 08:33] LABS: Alanine Aminotransferase 10 U/L (0-41); Albumin Level 3.7 g/dL (3.5-5.2); Alkaline Phosphatase 111 U/L (40-130); Anion Gap 13.8 (5-19); Aspartate Amino Transferase 14 U/L (0-40); Blood Urea Nitrogen 11 mg/dL (8-23); Calcium 8.4 mg/dL (8.5-10.5); Carbon Dioxide 28 mmol/L (22-29); Chloride 103 mmol/L (98-107); Globulin 2.9 g/dL (1.3-4.6); Glomerular Filtration Rate 95.6 mL/min (90-130); Glucose 100 mg/dL (65-115); Osmolality Calculated 291 mOsm/kg (285-295); Potassium 3.8 mmol/L (3.5-5.1); Sodium 141 mmol/L (136-145); Total Bilirubin 0.6 mg/dL (0.15-1.2); Total Protein 6.6 g/dL (6.6-8.7)
[2024-02-07] MEDS: sodium chloride 0.9% 250 ML 75 ML IV (10:20)
[2024-02-07] MEDS: palonosetron 0.25 mg/5 mL SDV IVP (10:21)
[2024-02-07] MEDS: bevacizumab-awwb 400 MG in sodium chloride 0.9% (100 ml) 100 ML 232 MG IV (10:49)
[2024-02-07] MEDS: dextrose 5% 250 ML 75 ML IV (11:31)
[2024-02-07] MEDS: atropine 1 mg/mL SDV 1 mL 0.400000000000000022 MG IV (11:33)
[2024-02-07] MEDS: leucovorin 820 MG in dextrose 5% 250 ML 166.669999999999987 MG IV (11:47)
[2024-02-07] MEDS: DEXTROSE 5% IV (11:47)
[2024-02-07] MEDS: IRINOTECAN IV (11:47)
[2024-02-07] MEDS: ELASTOMERIC PUMP PUMP IV (13:36)
[2024-02-07] MEDS: SODIUM CHLORIDE IV (13:36)
[2024-02-07] MEDS: FLUOROURACIL IV (13:36)
== END 2024-02-07 23:59 | disposition home or self-care (01) ==
PROVIDERS: Nurse Practitioner Family; Family Provider Internal Medicine Medical Oncology; PCP Family Medicine; Visit Provider Internal Medicine Medical Oncology
DX: Z51.11 Encounter for antineoplastic chemotherapy (principal); Z53.9 Procedure and treatment not carried out, unspecified reason; C20 Malignant neoplasm of rectum; Z79.899 Other long term (current) drug therapy; Z79.52 Long term (current) use of systemic steroids; Z72.0 Tobacco use; C78.7 Secondary malignant neoplasm of liver and intrahepatic bile duct
CPT/HCPCS: 80053; 85025; 96367; 96368; 96375; 96413; 96415; 96416; 96417; 96523; 99214; J0461; J0640; J1100; J1642; J2469; J7050; J7060; J9190; J9206; Q5107

== ENCOUNTER 2024-02-09 11:30 | Oncology outpatient (recurring) (ONCR) | payer MEDICARE, OTHER, SELFPAY ==
[2024-02-09 11:43] VITALS: BP 181/95; PULSE 64; RESP 16; TEMP 36.6; O2SAT 95
== END 2024-02-12 23:59 | disposition home or self-care (01) ==
LOC: ONCMED 11:30
PROVIDERS: Family Provider Internal Medicine Medical Oncology; PCP Family Medicine; Visit Provider Internal Medicine Medical Oncology
DX: Z45.1 Encounter for adjustment and management of infusion pump
CPT/HCPCS: 96523; J1642

== ENCOUNTER 2024-02-28 09:12 | Emergency (ER) | payer MEDICARE, OTHER, SELFPAY ==
[2024-02-28 09:22] VITALS: BP 128/76; PULSE 88; RESP 16; TEMP 36.6; O2SAT 95
--- NOTE | 2024-02-28 09:37 | CTR_ITS ---
PROCEDURE INFORMATION: Exam: CT Abdomen And Pelvis With Contrast Exam date and time: 02/28/2024 11:41 AM Age: 68 years old Clinical indication: Abdominal pain; Localized; Left lower quadrant (llq); Additional info: Llq abdominal pain; HX colon CA TECHNIQUE: Imaging protocol: Computed tomography of the abdomen and pelvis with contrast. Radiation optimization: All CT scans at this facility use at least one of these dose optimization techniques: automated exposure control; mA and/or kV adjustment per patient size (includes targeted exams where dose is matched to clinical indication); or iterative reconstruction. Contrast material: OMNI 350; Contrast volume: 100 ml; Contrast route: INTRAVENOUS (IV); COMPARISON: CT chest abdpel w/*[id number] 01/04/2024 9:59 AM RADIATION DOSE METRICS: Total DLP (mGy-cm): 481.6 FINDINGS: Pleural spaces: Small right pleural effusion. Liver: Small scattered hepatic cysts. Gallbladder and bile ducts: Normal. No calcified stones. No ductal dilation. Pancreas: Normal. No ductal dilation. Spleen: 15 cm splenomegaly with calcified splenic granulomata. Adrenal glands: Normal. No mass. Kidneys and ureters: Normal. No hydronephrosis. Stomach and bowel: Near the junction of the descending and sigmoid colon is a short segment of colon with a thickened wall and adjacent stranding. Mild diverticulitis is present. No drainable abscess is seen and there is no free intra-abdominal gas. Appendix: No evidence of appendicitis. Intraperitoneal space: See Stomach and bowel finding. Vasculature: Unremarkable. No abdominal aortic aneurysm. Lymph nodes: Unremarkable. No enlarged lymph nodes. Urinary bladder: Unremarkable as visualized. Reproductive: Unremarkable as visualized. Bones/joints: Unremarkable. No acute fracture. Soft tissues: Unremarkable. CT/CT abdomen pelvis w con* [id number] IMPRESSION: Mild focal diverticulitis. Splenomegaly.
[2024-02-28 10:09] LABS: Basophils % 0.6 %; Eosinophils # 0.1 10^3/uL (0.0-0.8); Eosinophils % 2.6 %; Hematocrit 46.2 % (37-53); Lymphocytes # 0.7 10^3/uL (0.8-4.8); Lymphocytes % 12.5 %; Mean Corpuscular HGB Conc 32.7 g/dL (30-55); Mean Corpuscular Hemoglobin 28.6 pg (27-33); Mean Corpuscular Volume 87.5 fl (82-101); Mean Platelet Volume 9.4 fL (7.4-10.4); Monocytes # 0.9 10^3/uL (0.2-0.9); Monocytes % 15.8 %; Neutrophils # 3.64 10^3/uL (1.8-7.7); Neutrophils % 67.6 %; Nucleated Red Blood Cells % 0 %; Platelet Count 201 10^3/cmm (157-399); Red Blood Count 5.28 10^6/uL (3.85-5.65); Red Cell Distribution Width 15.7 % (12.1-15.1); White Blood Count 5.38 10^3/uL (3.29-11.43)
[2024-02-28 10:31] LABS: Alanine Aminotransferase 20 U/L (0-41); Albumin Level 4.1 g/dL (3.5-5.2); Alkaline Phosphatase 119 U/L (40-130); Anion Gap 14.1 (5-19); Aspartate Amino Transferase 17 U/L (0-40); Blood Urea Nitrogen 17 mg/dL (8-23); Calcium 8.9 mg/dL (8.5-10.5); Carbon Dioxide 26 mmol/L (22-29); Chloride 102 mmol/L (98-107); Creatinine Clr Calc Pharmacy 92.5682; Glomerular Filtration Rate 95.6 mL/min (90-130); Glucose 100 mg/dL (65-115); Lipase 15 U/L (13-60); Osmolality Calculated 288 mOsm/kg (285-295); Potassium 4.1 mmol/L (3.5-5.1); Sodium 138 mmol/L (136-145); Total Bilirubin 2.3 mg/dL (0.15-1.2); Total Protein 7.1 g/dL (6.6-8.7)
--- NOTE | 2024-02-28 11:03 | PC.PHAR ---
pt states he takes care of his own medications-pt states takes his lisinopril 5mg daily prn ext shows last filled 5mg daily on 06/16/23 30d/s-mobic 15mg po daily prn ext shows last filled 11/22/23 90d/s and prilosec 20mg daily prn ext shows last filled 02/09/24 30d/s 20mg daily-
--- NOTE | 2024-02-28 11:06 | ED_ITS ---
HPI - Abdominal Pain 2 General: Chief Complaint: Abdominal Pain Stated Complaint: Abd pain, sent from Onc Time Seen by Provider: 02/28/24 11:02 Source: patient Mode of arrival: ambulatory Limitations: no limitations History of Present Illness: 68-year-old male has a history of colon cancer he is on chemo for his colon cancer states over the last 2 days been having sharp left lower quadrant pain. States is worse with movement and touch denies any diarrhea denies any vomiting denies any fevers. Associated Symptoms: Denies chills, diarrhea, fever(s), nausea and vomiting Review of Systems 2 Const: Denies: fever(s), chills, body aches or change in appetite Eyes: Denies: blurry vision or eye discomfort ENMT: Denies: throat pain or dental pain Card: Denies: chest pain Resp: Denies: dyspnea GI: Reports: abdominal pain; Denies: nausea, vomiting or diarrhea Musc: Denies: neck pain or back pain Skin/Breast: Denies: rash Neuro: Denies: headache(s) PFSH ED 2 PFSH: Medical History Rectal cancer Secondary malignant neoplasm of retroperitoneum and peritoneum Malignant neoplasm of rectum GERD (gastroesophageal reflux disease) Nicotine dependence Hypertension Hyperlipidemia Surgical History H/O colonoscopy with polypectomy (~04/2019) S/P biopsy (~11/2019) CT directed biopsy of peritoneal mass Status post surgical removal of malignant neoplasm of skin Port-A-Cath in place placed in L subclavian 11/15/2019 Hx of circumcision Hx of tonsillectomy Family History Father Diabetes CAD (coronary artery disease) Mother Dementia Stroke Grandfather Lung disease Other Breast cancer Heart disease Parkinson disease Denies family history of Clotting disorder Hyperlipidemia Psychiatric illness Chronic kidney disease (CKD) Suicide Anesthesia complication Bleeding disorder Hypertension Social History Smoking and tobacco/nicotine status: light tobacco/nicotine user (cigar ) cigars Cigars smoked per week: 20 Alcohol intake: current Alcohol intake frequency: few times a week Alcohol type: beer Substance/Drug Use: former Date of last use: THC Lives independently: Yes Marital status: Current occupational status: employed 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 Special nacho needs: No Agree to transfusion: Yes Physical Exam 2 Const: COMMON NORMALS: no acute distress, patient oriented x3 and healthy appearing HENMT: COMMON NORMALS: normocephalic and atraumatic HEAD & SCALP: n ormocephalic and atraumatic Eye: COMMON NORMALS: conjunctivae normal CONJUNCTIVA: Yes conjunctivae normal Neck/C-Spine: COMMON NORMALS: full ROM and supple Chest: COMMONS NORMALS: normal inspection of the chest Resp: COMMON NORMALS: normal respiratory effort Cardio: COMMON NORMALS: regular rate, regular rhythm and No murmurs present (Cardio) RATE: regular rate RHYTHM: regular rhythm GI: COMMON NORMALS: Normal to inspection, nondistended, normoactive bowel sounds present, Soft to palpation and no masses PALPATION: Yes Soft to palpation and Yes Tenderness to palpation present (GI) Details: LLQ Extremity: COMMON NORMALS: normal to inspection and full ROM Neuro: COMMON NORMALS: patient oriented x3, moves all extremities and no focal motor deficits Psych: COMMON NORMALS: mental status grossly normal, Normal thought process present and cooperative THOUGHT PROCESS: Normal thought process present Skin: COMMON NORMALS: no rashes or lesions noted and no wounds GENERAL SKIN EXAM: no rashes or lesions noted Course 2 Vital Signs: Vital signs: Vital Signs Temperature 97.9 F 02/28/24 09:22 Pulse Rate 88 02/28/24 09:22 Respiratory Rate 16 02/28/24 09:22 Blood Pressure 128/76 02/28/24 09:22 Pulse Oximetry 95 02/28/24 09:22 MDM - Abdominal Pain Medical Decision Making Patient presents with left lower quadrant abdominal pain he does have a diverticulitis started on Cipro Flagyl along with Zofran he is to follow-up with his PCP and 5 to 7 days return if worsening he understands agrees to plan. Medical Records I reviewed the patient's medical records. Lab Data I reviewed the patient's lab results. 02/28/24 10:04 02/28/24 10:04 Labs/Radiology: Radiology Impressions Abdomen/Pelvis CT 02/28/24 09:37 IMPRESSION: Mild focal diverticulitis. Splenomegaly. Laboratory Results WBC 5.38 10^3/uL (3.29-11.43) 02/28/24 10:04 RBC 5.28 10^6/uL (3.85-5.65) 02/28/24 10:04 Hgb 15.10 g/dL (11.27-16.99) 02/28/24 10:04 Hct 46.2 % (37-53) 02/28/24 10:04 MCV 87.5 fl (82-101) 02/28/24 10:04 MCH 28.6 pg (27-33) 02/28/24 10:04 MCHC 32.7 g/dL (30-55) 02/28/24 10:04 RDW 15.7 % (12.1-15.1) H 02/28/24 10:04 Plt Count 201 10^3/cmm (157-399) 02/28/24 10:04 MPV 9.4 fL (7.4-10.4) 02/28/24 10:04 Neut % (Auto) 67.6 % 02/28/24 10:04 Lymph % (Auto) 12.5 % 02/28/24 10:04 [place] % (Auto) 15.8 % 02/28/24 10:04 Eos % (Auto) 2.6 % 02/28/24 10:04 Baso % (Auto) 0.6 % 02/28/24 10:04 Neut # (Auto) 3.64 10^3/uL (1.8-7.7) 02/28/24 10:04 Lymph # (Auto) 0.7 10^3/uL (0.8-4.8) L 02/28/24 10:04 [place] # (Auto) 0.9 10^3/uL (0.2-0.9) 02/28/24 10:04 Eos # (Auto) 0.1 10^3/uL (0.0-0.8) 02/28/24 10:04 Baso # (Auto) 0.0 10^3/uL (0.0-0.1) 02/28/24 10:04 Nucleated RBC % (auto) 0 % 02/28/24 10:04 Nucleated RBCs # 0.0 /100WBC 02/28/24 10:04 Sodium 138 mmol/L (136-145) 02/28/24 10:04 Potassium 4.1 mmol/L (3.5-5.1) 02/28/24 10:04 Chloride 102 mmol/L (98-107) 02/28/24 10:04 Carbon Dioxide 26 mmol/L (22-29) 02/28/24 10:04 Anion Gap 14.1 (5-19) 02/28/24 10:04 BUN 17 mg/dL (8-23) 02/28/24 10:04 Creatinine 0.8 mg/dL (0.7-1.2) 02/28/24 10:04 GFR Calculation 95.6 mL/min (90-130) 02/28/24 10:04 Glucose 100 mg/dL (65-115) 02/28/24 10:04 Calculated Osmolality 288 mOsm/kg (285-295) 02/28/24 10:04 Calcium 8.9 mg/dL (8.5-10.5) 02/28/24 10:04 Total Bilirubin 2.3 mg/dL (0.15-1.2) H 02/28/24 10:04 AST 17 U/L (0-40) 02/28/24 10:04 ALT 20 U/L (0-41) 02/28/24 10:04 Alkaline Phosphatase 119 U/L (40-130) 02/28/24 10:04 Total Protein 7.1 g/dL (6.6-8.7) 02/28/24 10:04 Albumin 4.1 g/dL (3.5-5.2) 02/28/24 10:04 Globulin 3.0 g/dL (1.3-4.6) 02/28/24 10:04 Lipase 15 U/L (13-60) 02/28/24 10:04 Urine Color Radha (Yellow) 02/28/24 11:27 Urine Appearance Clear (CLEAR) 02/28/24 11:27 Urine pH 5 (5-7) 02/28/24 11:27 Ur Specific [place] 1.020 (1.005-1.030) 02/28/24 11:27 Urine Protein Trace (Negative) 02/28/24 11:27 Urine Glucose (UA) Norm (Normal) 02/28/24 11:27 Urine Ketones 1+ (Negative) H 02/28/24 11:27 Urine Blood Neg (Negative) 02/28/24 11:27 Urine Nitrate Negative (Negative) 02/28/24 11:27 Urine Bilirubin 1+ (Negative) H 02/28/24 11:27 Urine Urobilinogen 4 mg/dL (Negative) H 02/28/24 11:27 Ur Leukocyte Esterase Trace (Negative) H 02/28/24 11:27 Urine RBC Rare /hpf (0-2) 02/28/24 11:27 Urine WBC None /hpf (0-5) 02/28/24 11:27 Ur Squamous Epith Cells Rare /hpf (0-5) 02/28/24 11:27 Amorphous Sediment 1+ /hpf 02/28/24 11:27 Urine Bacteria None /hpf (NONE) 02/28/24 11:27 Urine Mucus 2+ /hpf 02/28/24 11:27 All radiology interpretation(s) finalized by discharge Discharge Plan Discharge Patient Disposition: Home Clinical Impression: Diverticulitis Condition: Stable Prescriptions: New metronidazole 500 mg tablet 500 mg PO Q8H 7 Days Qty: 21 0RF ciprofloxacin HCl [Cipro] 500 mg tablet 500 mg PO BID Qty: 14 0RF ondansetron 4 mg tablet,disintegrating 4 mg PO Q6H PRN (Reason: nausea and vomiting) Qty: 14 0RF No Action lisinopril 5 mg tablet 5 mg PO DAILY PRN (Reason: Blood Pressure) hydrocodone-acetaminophen 10-325 mg tablet 1 tab PO Q4H PRN (Reason: pain) 30 Days Qty: 180 0RF meloxicam 15 mg tablet 15 mg PO DAILY PRN (Reason: Pain) omeprazole 20 mg capsule,delayed release(DR/EC) 20 mg PO DAILY PRN (Reason: Heartburn) Discharge Orders: Discharge ED (Routine); Ordered 02/28/24 Ordered By: Dragan Hill Referrals: Rony Arce MD [Primary Care Provider] - 4-7 days Discharge Diet: Advance as tolerated Discharge Activity: Resume usual activity Patient Instructions: Metronidazole (By mouth), Diverticulitis (ED), Opioid Safety Coding Level of Care Code ED Collaborative Physician for Román Olmos
[2024-02-28] MEDS: sodium chloride 0.9% 1,000 ML 999 ML IV (11:31)
[2024-02-28] MEDS: iohexol 350 mg/mL 500 mL Btl (per mL) IV (11:42)
[2024-02-28 11:46] LABS: Urine Appearance Clear (CLEAR); Urine Color Amber (Yellow); pH Urine 5 (5-7)
[2024-02-28 11:47] LABS: Add Urine Culture? No; Add Urine Microscopic? YES; Amorphous Sediment Urine 1+ /hpf; Bilirubin Urine 1+ (Negative); Blood Urine Neg (Negative); Glucose Urine UA Norm (Normal); Ketones Urine 1+ (Negative); Leukocyte Esterase Urine Trace (Negative); Mucus Urine 2+ /hpf; Nitrate Urine Negative (Negative); Protein Urine Trace (Negative); RBC Urine RARE /hpf (0-2); Squamous Epithelial Cell Urine RARE /hpf (0-5); Urobilinogen Urine 4 mg/dL (Negative)
== END 2024-02-28 13:20 | disposition home or self-care (01) ==
PROVIDERS: Physician Assistant; Emergency Provider Emergency Medicine; PCP Family Medicine
DX: K57.92 Diverticulitis of intestine, part unspecified, without perforation or abscess without bleeding (principal); F17.290 Nicotine dependence, other tobacco product, uncomplicated; Z85.048 Personal history of other malignant neoplasm of rectum, rectosigmoid junction, and anus; C18.9 Malignant neoplasm of colon, unspecified; Z79.60 Long term (current) use of unspecified immunomodulators and immunosuppressants; I10 Essential (primary) hypertension; E78.5 Hyperlipidemia, unspecified
CPT/HCPCS: 36415; 74177; 80053; 81001; 83690; 85025; 99285; J7030; Q9967

== ENCOUNTER 2024-03-08 13:00 | Oncology outpatient (recurring) (ONCR) | payer MEDICARE, OTHER, SELFPAY ==
[2024-02-21 08:10] LABS: Basophils # 0.1 10^3/uL (0.0-0.1); Basophils % 0.8 %; Eosinophils # 0.2 10^3/uL (0.0-0.8); Eosinophils % 2.7 %; Hematocrit 45.3 % (37-53); Lymphocytes % 15.9 %; Mean Corpuscular HGB Conc 32.9 g/dL (30-55); Mean Corpuscular Hemoglobin 28.9 pg (27-33); Mean Corpuscular Volume 87.8 fl (82-101); Mean Platelet Volume 9.3 fL (7.4-10.4); Monocytes # 0.5 10^3/uL (0.2-0.9); Neutrophils # 4.24 10^3/uL (1.8-7.7); Neutrophils % 71.1 %; Nucleated Red Blood Cells % 0 %; Platelet Count 191 10^3/cmm (157-399); Red Blood Count 5.16 10^6/uL (3.85-5.65); Red Cell Distribution Width 15.7 % (12.1-15.1); White Blood Count 5.97 10^3/uL (3.29-11.43)
[2024-02-21 08:28] LABS: Alanine Aminotransferase 12 U/L (0-41); Albumin Level 3.9 g/dL (3.5-5.2); Alkaline Phosphatase 116 U/L (40-130); Anion Gap 13.9 (5-19); Aspartate Amino Transferase 18 U/L (0-40); Blood Urea Nitrogen 14 mg/dL (8-23); Calcium 8.7 mg/dL (8.5-10.5); Carbon Dioxide 26 mmol/L (22-29); Chloride 105 mmol/L (98-107); Globulin 2.6 g/dL (1.3-4.6); Glomerular Filtration Rate 83.4 mL/min (90-130); Glucose 152 mg/dL (65-115); Osmolality Calculated 295 mOsm/kg (285-295); Potassium 3.9 mmol/L (3.5-5.1); Sodium 141 mmol/L (136-145); Total Bilirubin 0.8 mg/dL (0.15-1.2); Total Protein 6.5 g/dL (6.6-8.7)
[2024-02-21] MEDS: sodium chloride 0.9% 250 ML 75 ML IV (10:00)
[2024-02-21] MEDS: palonosetron 0.25 mg/5 mL SDV IVP (10:01)
[2024-02-21] MEDS: bevacizumab-awwb 390 MG in sodium chloride 0.9% (100 ml) 100 ML 230 MG IV (10:30)
[2024-02-21] MEDS: atropine 1 mg/mL SDV 1 mL 0.400000000000000022 MG IV (11:07)
[2024-02-21] MEDS: DEXTROSE 5% IV (11:18)
[2024-02-21] MEDS: leucovorin 800 MG in dextrose 5% 250 ML 166.669999999999987 MG IV (11:18)
[2024-02-21] MEDS: IRINOTECAN IV (11:18)
[2024-02-21 12:56] VITALS: BP 152/87; PULSE 52; O2SAT 96
[2024-02-21] MEDS: fluorouraciL 2,900 MG, elastomeric pump 1 PUMP in sodium chloride 0.9% (100 ml) 34 ML IV (12:57)
[2024-02-23 11:14] VITALS: BP 162/98; PULSE 69; O2SAT 96
[2024-03-06 07:54] LABS: Basophils # 0.1 10^3/uL (0.0-0.1); Basophils % 0.8 %; Eosinophils # 0.2 10^3/uL (0.0-0.8); Eosinophils % 2.8 %; Lymphocytes # 0.9 10^3/uL (0.8-4.8); Lymphocytes % 13.3 %; Mean Corpuscular HGB Conc 32.9 g/dL (30-55); Mean Corpuscular Hemoglobin 28.5 pg (27-33); Mean Corpuscular Volume 86.7 fl (82-101); Mean Platelet Volume 8.6 fL (7.4-10.4); Monocytes # 0.5 10^3/uL (0.2-0.9); Monocytes % 7.3 %; Neutrophils # 4.84 10^3/uL (1.8-7.7); Neutrophils % 74.6 %; Nucleated Red Blood Cells % 0 %; Platelet Count 252 10^3/cmm (157-399); Red Blood Count 5.19 10^6/uL (3.85-5.65); Red Cell Distribution Width 15.9 % (12.1-15.1); White Blood Count 6.48 10^3/uL (3.29-11.43)
[2024-03-06 08:22] LABS: Alanine Aminotransferase 15 U/L (0-41); Albumin Level 3.9 g/dL (3.5-5.2); Alkaline Phosphatase 97 U/L (40-130); Anion Gap 12.5 (5-19); Aspartate Amino Transferase 22 U/L (0-40); Blood Urea Nitrogen 15 mg/dL (8-23); Calcium 8.1 mg/dL (8.5-10.5); Carbon Dioxide 25 mmol/L (22-29); Chloride 105 mmol/L (98-107); Creatinine Clr Calc Pharmacy 84.3997; Globulin 2.6 g/dL (1.3-4.6); Glomerular Filtration Rate 83.4 mL/min (90-130); Glucose 141 mg/dL (65-115); Osmolality Calculated 291 mOsm/kg (285-295); Potassium 3.5 mmol/L (3.5-5.1); Sodium 139 mmol/L (136-145); Total Bilirubin 0.5 mg/dL (0.15-1.2); Total Protein 6.5 g/dL (6.6-8.7)
[2024-03-06] MEDS: sodium chloride 0.9% 250 ML 75 ML IV (10:19)
[2024-03-06] MEDS: palonosetron 0.25 mg/5 mL SDV IVP (10:20)
[2024-03-06] MEDS: bevacizumab-awwb 390 MG in sodium chloride 0.9% (100 ml) 100 ML 300 MG IV (10:44)
[2024-03-06] MEDS: atropine 1 mg/mL SDV 1 mL 0.400000000000000022 MG IV (11:22)
[2024-03-06] MEDS: leucovorin 800 MG in dextrose 5% 250 ML 166.669999999999987 MG IV (11:40)
[2024-03-06] MEDS: IRINOTECAN IV (11:40)
[2024-03-06] MEDS: DEXTROSE 5% IV (11:40)
[2024-03-06] MEDS: fluorouraciL 2,900 MG, elastomeric pump 1 PUMP in sodium chloride 0.9% (100 ml) 34 ML IV (13:17)
[2024-03-06 13:22] VITALS: BP 164/84; PULSE 57; RESP 17; TEMP 36.4; O2SAT 96
== END 2024-03-13 23:59 | disposition home or self-care (01) ==
PROVIDERS: Nurse Practitioner Family; Family Provider Internal Medicine Medical Oncology; PCP Family Medicine; Visit Provider Internal Medicine Medical Oncology
DX: Z45.1 Encounter for adjustment and management of infusion pump (principal); Z53.9 Procedure and treatment not carried out, unspecified reason
CPT/HCPCS: 80053; 85025; 96367; 96368; 96375; 96413; 96415; 96416; 96417; 96523; 99214; J0461; J0640; J1100; J2469; J7050; J7060; J9190; J9206; Q5107

== ENCOUNTER 2024-04-04 11:23 | Oncology outpatient (recurring) (ONCR) | payer MEDICARE, OTHER, SELFPAY ==
[2024-03-20 08:10] LABS: Basophils % 0.7 %; Eosinophils # 0.2 10^3/uL (0.0-0.8); Eosinophils % 2.8 %; Hematocrit 45.3 % (37-53); Lymphocytes # 0.9 10^3/uL (0.8-4.8); Lymphocytes % 14.9 %; Mean Corpuscular HGB Conc 32.7 g/dL (30-55); Mean Corpuscular Hemoglobin 28.3 pg (27-33); Mean Corpuscular Volume 86.6 fl (82-101); Mean Platelet Volume 9.4 fL (7.4-10.4); Monocytes # 0.6 10^3/uL (0.2-0.9); Monocytes % 9.5 %; Neutrophils # 4.36 10^3/uL (1.8-7.7); Neutrophils % 71.6 %; Nucleated Red Blood Cells % 0 %; Platelet Count 213 10^3/cmm (157-399); Red Blood Count 5.23 10^6/uL (3.85-5.65); White Blood Count 6.09 10^3/uL (3.29-11.43)
[2024-03-20 08:29] LABS: Alanine Aminotransferase 13 U/L (0-41); Alkaline Phosphatase 103 U/L (40-130); Anion Gap 14.2 (5-19); Aspartate Amino Transferase 17 U/L (0-40); Blood Urea Nitrogen 14 mg/dL (8-23); Calcium 8.3 mg/dL (8.5-10.5); Carbon Dioxide 25 mmol/L (22-29); Chloride 105 mmol/L (98-107); Glomerular Filtration Rate 95.6 mL/min (90-130); Glucose 102 mg/dL (65-115); Osmolality Calculated 291 mOsm/kg (285-295); Potassium 4.2 mmol/L (3.5-5.1); Sodium 140 mmol/L (136-145); Total Bilirubin 0.8 mg/dL (0.15-1.2)
[2024-03-20] MEDS: sodium chloride 0.9% 250 ML 75 ML IV (09:27)
[2024-03-20] MEDS: palonosetron 0.25 mg/5 mL SDV IVP (09:30)
[2024-03-20] MEDS: bevacizumab-awwb 390 MG in sodium chloride 0.9% (100 ml) 100 ML 240 MG IV (10:20)
[2024-03-20] MEDS: atropine 1 mg/mL SDV 1 mL 0.400000000000000022 MG IV (11:01)
[2024-03-20] MEDS: dextrose 5% 250 ML 75 ML IV (11:11)
[2024-03-20] MEDS: DEXTROSE 5% IV (11:12)
[2024-03-20] MEDS: IRINOTECAN IV (11:12)
[2024-03-20] MEDS: leucovorin 800 MG in dextrose 5% 250 ML 166.669999999999987 MG IV (11:13)
[2024-03-20] MEDS: fluorouraciL 2,900 MG, elastomeric pump 1 PUMP in sodium chloride 0.9% (100 ml) 34 ML IV (13:04)
[2024-03-20 13:06] VITALS: BP 153/86; PULSE 58; RESP 18; TEMP 36.6; O2SAT 96
[2024-04-03 08:15] VITALS: BP 141/80; PULSE 71; RESP 16; TEMP 36.7; O2SAT 96; BMI 23.4
[2024-04-03 08:31] VITALS: BP 141/80; PULSE 61; RESP 17; TEMP 36.7; O2SAT 98
[2024-04-03 08:32] LABS: Basophils # 0.1 10^3/uL (0.0-0.1); Basophils % 1.1 %; Eosinophils # 0.2 10^3/uL (0.0-0.8); Eosinophils % 3.7 %; Hematocrit 42.5 % (37-53); Lymphocytes # 0.7 10^3/uL (0.8-4.8); Lymphocytes % 13.5 %; Mean Corpuscular HGB Conc 32.5 g/dL (30-55); Mean Corpuscular Hemoglobin 28.9 pg (27-33); Mean Corpuscular Volume 89.1 fl (82-101); Mean Platelet Volume 9.5 fL (7.4-10.4); Monocytes # 0.6 10^3/uL (0.2-0.9); Monocytes % 11.1 %; Neutrophils # 3.81 10^3/uL (1.8-7.7); Neutrophils % 70.2 %; Nucleated Red Blood Cells % 0 %; Platelet Count 177 10^3/cmm (157-399); Red Blood Count 4.77 10^6/uL (3.85-5.65); Red Cell Distribution Width 17.7 % (12.1-15.1); White Blood Count 5.42 10^3/uL (3.29-11.43)
[2024-04-03 09:03] LABS: Carcinoembryonic Antigen 4.1 ng/mL (0.0-4.7)
[2024-04-03 09:14] LABS: Anion Gap 13.8 (5-19); Blood Urea Nitrogen 13 mg/dL (8-23); Calcium 8.3 mg/dL (8.5-10.5); Carbon Dioxide 24 mmol/L (22-29); Chloride 106 mmol/L (98-107); Glomerular Filtration Rate 95.6 mL/min (90-130); Glucose 129 mg/dL (65-115); Osmolality Calculated 292 mOsm/kg (285-295); Potassium 3.8 mmol/L (3.5-5.1); Sodium 140 mmol/L (136-145)
[2024-04-03 09:15] LABS: Alanine Aminotransferase 14 U/L (0-41); Albumin Level 3.8 g/dL (3.5-5.2); Alkaline Phosphatase 93 U/L (40-130); Aspartate Amino Transferase 15 U/L (0-40); Globulin 2.6 g/dL (1.3-4.6); Total Bilirubin 0.8 mg/dL (0.15-1.2); Total Protein 6.4 g/dL (6.6-8.7)
[2024-04-03] MEDS: palonosetron 0.25 mg/5 mL SDV IVP (10:30)
[2024-04-03] MEDS: sodium chloride 0.9% 250 ML 75 ML IV (10:30)
[2024-04-03] MEDS: atropine 1 mg/mL SDV 1 mL 0.400000000000000022 MG IV (11:15)
[2024-04-03] MEDS: bevacizumab-awwb 390 MG in sodium chloride 0.9% (100 ml) 100 ML 230 MG IV (11:16)
[2024-04-03] MEDS: DEXTROSE 5% IV (12:01)
[2024-04-03] MEDS: IRINOTECAN IV (12:01)
[2024-04-03] MEDS: leucovorin 800 MG in dextrose 5% 250 ML 166.669999999999987 MG IV (12:01)
[2024-04-03] MEDS: fluorouraciL 2,900 MG, elastomeric pump 1 PUMP in sodium chloride 0.9% (100 ml) 34 ML IV (13:38)
[2024-04-04] MEDS: iohexol 350 mg/mL 500 mL Btl (per mL) PO (12:08)
[2024-04-04] MEDS: iohexol 350 mg/mL 500 mL Btl (per mL) IV (12:28)
--- NOTE | 2024-04-04 12:30 | CT_ITS ---
WS: [id number] CT CHEST, ABDOMEN AND PELVIS WITH CONTRAST HISTORY: Restaging colorectal cancer. TECHNIQUE: Contiguous 5 mm axial imaging performed through the chest, abdomen and pelvis with IV cont rast, oral contrast has been provided. Coronal and sagittal reformats chest. Coronal and sagittal ref ormats through the abdomen and pelvis. All CT scans at [facility] use at least one of these d ose optimization techniques: automated exposure control; mA and/or kV adjustment per patient size (in cludes targeted exams where dose is matched to clinical indication); or iterative reconstruction. CONTRAST: Omnipaque 350; 100 mL IV. DLP: 792.24 mGy COMPARISON: 02/28/2024 and 01/04/2024, 09/05/[address]: Several subcentimeter pulmonary nodules are reidentified. These nodules have been present o n prior imaging studies. The largest in the lingula measures 6 mm. There has been no increase in size or number of these nodules. Mild tree-in-bud airspace disease in the RIGHT middle lobe. No pericardi al or pleural effusions. RIGHT subclavian Mediport. No mediastinal or hilar adenopathy. Normal size heart. Very mild atheroscl erosis aorta. Scattered coronary artery calcifications. LEFT thyroid nodule extends substernal. Small hiatal hernia. Abdomen/pelvis CT: Patient has known metastatic liver lesions and hepatic cyst. Continued slight decr ease in size of the previously described metastatic liver lesions. These liver lesions are now slight ly more cystic and decreased in size consistent with treated metastatic sites. The largest superior R IGHT lobe of the liver 2.5 x 1.7 cm. There is a cyst in the inferior RIGHT lobe of the liver. No bile duct dilatation. Normal portal vein. Spleen with granulomata. Contracted gallbladder. Normal pancrea s normal adrenal glands. No renal obstruction. There is mild perinephric stranding. Nonobstructing ca lcifications LEFT renal pelvis. No progression cortical cyst LEFT kidney. Mild atherosclerosis aorta. Small lymph node adjacent to the distal esophagus is unchanged. Celiac axis lymph node 12 mm has slig htly increased in size. No retroperitoneal lymph nodes. No GI tract obstruction. Fluid distention of the stomach. No small bowel obstruction. Diffuse constipation. Numerous diverticula in the descending and sigmoid colon. There is continued circumferential thickening of the distal sigmoid and rectum. T he lumen is narrowed but not obstructed. Small perirectal lymph nodes reidentified with no increase i n size. The ascites has resolved since 01/04/2024. The previously described omental carcinomatosis has signifi cantly improved but not completely resolved. Bones are osteopenic. CT/CT chest abdpel w/*[id number] IMPRESSION: 1. There are a few subcentimeter pulmonary nodules which are unchanged. There are no new nodules or increasing nodule size. 2. No mediastinal or hilar adenopathy. 3. Previously described hepatic metastatic sites have all decreased in size. T he largest now measures 2.5 x 1.7 cm. 4. Continued colorectal wall thickening with narrowing of the lumen but no obs truction. No progression. 5. Resolved ascites since 01/04/2024. 6. Improved but not completely resolved peritoneal carcinomatosis since 024. 7. Small indeterminant celiac axis lymph node at 12 mm. Will need to be reeval uated on follow-up exams.
== END 2024-04-04 23:59 | disposition home or self-care (01) ==
LOC: RAD 11:23 → ONCMED 11:23
PROVIDERS: Family Provider Internal Medicine Medical Oncology; PCP Family Medicine; Visit Provider Nurse Practitioner Family
DX: C20 Malignant neoplasm of rectum; R91.8 Other nonspecific abnormal finding of lung field; C78.6 Secondary malignant neoplasm of retroperitoneum and peritoneum
CPT/HCPCS: 71260; 74177; 80053; 82378; 85025; 96367; 96368; 96375; 96413; 96415; 96416; 96417; 96523; 99214; J0461; J0640; J1100; J2469; J7050; J7060; J9190; J9206; Q5107; Q9967

== ENCOUNTER 2024-04-05 11:02 | Oncology outpatient (recurring) (ONCR) | payer MEDICARE, OTHER, SELFPAY ==
[2024-04-05 12:00] VITALS: BP 120/78; PULSE 78; RESP 18; TEMP 37.1; O2SAT 98
== END 2024-04-13 23:59 | disposition home or self-care (01) ==
LOC: ONCMED 11:02
PROVIDERS: Family Provider Internal Medicine Medical Oncology; PCP Family Medicine; Visit Provider Nurse Practitioner Family
DX: Z45.1 Encounter for adjustment and management of infusion pump
CPT/HCPCS: 96523

== ENCOUNTER 2024-05-03 11:00 | Oncology outpatient (recurring) (ONCR) | payer MEDICARE, OTHER, SELFPAY ==
[2024-04-17 08:14] LABS: Basophils % 0.7 %; Eosinophils # 0.3 10^3/uL (0.0-0.8); Eosinophils % 4.5 %; Hematocrit 42.2 % (37-53); Lymphocytes # 0.9 10^3/uL (0.8-4.8); Lymphocytes % 15.1 %; Mean Corpuscular HGB Conc 32.5 g/dL (30-55); Mean Corpuscular Hemoglobin 28.8 pg (27-33); Mean Corpuscular Volume 88.7 fl (82-101); Mean Platelet Volume 9.6 fL (7.4-10.4); Monocytes # 0.7 10^3/uL (0.2-0.9); Monocytes % 11.3 %; Neutrophils # 4.03 10^3/uL (1.8-7.7); Neutrophils % 67.7 %; Nucleated Red Blood Cells % 0 %; Platelet Count 185 10^3/cmm (157-399); Red Blood Count 4.76 10^6/uL (3.85-5.65); Red Cell Distribution Width 18.2 % (12.1-15.1); White Blood Count 5.95 10^3/uL (3.29-11.43)
[2024-04-17 08:42] LABS: Alanine Aminotransferase 15 U/L (0-41); Albumin Level 3.8 g/dL (3.5-5.2); Alkaline Phosphatase 99 U/L (40-130); Anion Gap 12.6 (5-19); Aspartate Amino Transferase 17 U/L (0-40); Blood Urea Nitrogen 11 mg/dL (8-23); Calcium 7.8 mg/dL (8.5-10.5); Carbon Dioxide 25 mmol/L (22-29); Chloride 104 mmol/L (98-107); Globulin 2.6 g/dL (1.3-4.6); Glomerular Filtration Rate 83.4 mL/min (90-130); Glucose 143 mg/dL (65-115); Osmolality Calculated 288 mOsm/kg (285-295); Potassium 3.6 mmol/L (3.5-5.1); Sodium 138 mmol/L (136-145); Total Bilirubin 0.8 mg/dL (0.15-1.2); Total Protein 6.4 g/dL (6.6-8.7)
[2024-04-17 10:21] VITALS: BMI 23.4
[2024-04-17] MEDS: sodium chloride 0.9% 250 ML 75 ML IV (10:23)
[2024-04-17] MEDS: palonosetron 0.25 mg/5 mL SDV IVP (10:26)
[2024-04-17] MEDS: bevacizumab-awwb 390 MG in sodium chloride 0.9% (100 ml) 100 ML 240 MG IV (10:57)
[2024-04-17] MEDS: atropine 1 mg/mL SDV 1 mL 0.400000000000000022 MG IV (10:59)
[2024-04-17] MEDS: leucovorin 800 MG in dextrose 5% 250 ML 166.669999999999987 MG IV (11:47)
[2024-04-17 13:20] VITALS: BP 149/89; PULSE 58; RESP 17; TEMP 36.4; O2SAT 97
[2024-04-17] MEDS: FLUOROURACIL IV (13:24)
[2024-04-17] MEDS: ELASTOMERIC PUMP PUMP IV (13:24)
[2024-04-17] MEDS: SODIUM CHLORIDE IV (13:24)
[2024-04-17 13:38] LABS: Carcinoembryonic Antigen 3.9 ng/mL (0.0-4.7)
[2024-05-01 08:01] LABS: Basophils # 0.1 10^3/uL (0.0-0.1); Basophils % 0.8 %; Eosinophils # 0.4 10^3/uL (0.0-0.8); Eosinophils % 5.8 %; Hematocrit 45.9 % (37-53); Lymphocytes # 0.9 10^3/uL (0.8-4.8); Lymphocytes % 14.2 %; Mean Corpuscular HGB Conc 32.2 g/dL (30-55); Monocytes # 0.7 10^3/uL (0.2-0.9); Monocytes % 11.5 %; Neutrophils % 67.1 %; Nucleated Red Blood Cells % 0 %; Platelet Count 210 10^3/cmm (157-399); Red Cell Distribution Width 18.6 % (12.1-15.1); White Blood Count 6.26 10^3/uL (3.29-11.43)
[2024-05-01 08:19] LABS: Alanine Aminotransferase 22 U/L (0-41); Albumin Level 4.1 g/dL (3.5-5.2); Alkaline Phosphatase 126 U/L (40-130); Anion Gap 17.2 (5-19); Aspartate Amino Transferase 23 U/L (0-40); Blood Urea Nitrogen 15 mg/dL (8-23); Calcium 8.5 mg/dL (8.5-10.5); Carbon Dioxide 24 mmol/L (22-29); Chloride 101 mmol/L (98-107); Creatinine Clr Calc Pharmacy 94.5088; Globulin 2.9 g/dL (1.3-4.6); Glomerular Filtration Rate 95.6 mL/min (90-130); Glucose 113 mg/dL (65-115); Osmolality Calculated 288 mOsm/kg (285-295); Potassium 4.2 mmol/L (3.5-5.1); Sodium 138 mmol/L (136-145); Total Bilirubin 0.8 mg/dL (0.15-1.2)
[2024-05-01] MEDS: palonosetron 0.25 mg/5 mL SDV IVP (09:31)
[2024-05-01] MEDS: sodium chloride 0.9% 250 ML 75 ML IV (09:31)
[2024-05-01] MEDS: bevacizumab-awwb 390 MG in sodium chloride 0.9% (100 ml) 100 ML 230 MG IV (10:02)
[2024-05-01] MEDS: atropine 1 mg/mL SDV 1 mL 0.400000000000000022 MG IV (10:42)
[2024-05-01] MEDS: leucovorin 800 MG in dextrose 5% 250 ML 166.669999999999987 MG IV (11:01)
[2024-05-01] MEDS: SODIUM CHLORIDE IV (12:49)
[2024-05-01] MEDS: ELASTOMERIC PUMP PUMP IV (12:49)
[2024-05-01] MEDS: FLUOROURACIL IV (12:49)
[2024-05-01 12:55] VITALS: BP 158/91; PULSE 56; RESP 16; TEMP 36.3; O2SAT 95
== END 2024-05-13 23:59 | disposition home or self-care (01) ==
PROVIDERS: Nurse Practitioner Family; Family Provider Internal Medicine Medical Oncology; PCP Family Medicine; Visit Provider Nurse Practitioner Family
DX: Z45.1 Encounter for adjustment and management of infusion pump (principal); Z53.9 Procedure and treatment not carried out, unspecified reason
CPT/HCPCS: 80053; 82378; 85025; 96367; 96368; 96375; 96413; 96415; 96416; 96417; 96523; 99214; J0461; J0640; J1100; J2469; J7050; J7060; J9190; J9206; Q5107

== ENCOUNTER 2024-05-04 12:09 | Outpatient (CLI) | payer MEDICARE, OTHER, SELFPAY ==
--- NOTE | 2024-05-04 12:13 | USCV_ITS ---
Mick Fritz Age: 68 Gender: M : 1955 Exam Date: 05/04/2024 12:19 Ordering Phys: Asia Trinidad APRN Technologist: CT Exam Location: [facility] [place] Indication: vision problems Risk Factors: Previous Vascular Surgery: Right Brachial BP: / Left Brachial BP: / Right Left Velocity (cm/s) Spectral Plaque Velocity (cm/s) Spectral Plaque Syst/Diast Broadening Syst/Diast Broadening 94.40/ 24.50 Prox CCA 84.70 / 21.00 105.30/32.60 Mid CCA 81.60 / 21.20 80.30/ 26.70 Distal CCA 71.60 / 17.80 60.50/ 25.00 Prox ICA 50.20 / 19.20 57.00/ 25.50 Mid ICA 45.60 / 17.30 58.00/ 25.50 Distal ICA 42.00 / 16.30 50.20 ECA 73.30 0.80 ICA/CCA 0.70 Antegrade Vertebral Antegrade 27.50/ 10.70 cm/s 24.70/ 8.50 cm/s Bi Subclavian Bi 42.20 75.10 CONCLUSIONS Right ICA stenosis <50%. Mild atheromatous plaque right carotid bulb/ICA. Left ICA stenosis <50%. Mild atheromatous plaque left carotid bulb/ICA. Intimal thickening in the common carotid arteries and internal carotid arteries bilaterally. Normal antegrade Doppler flow noted in the right vertebral artery. Normal antegrade Doppler flow noted in the left vertebral artery. Elieser Cruz MD (Electronically Signed) Final Date: 04 May 2024 16:42 S
--- NOTE | 2024-05-04 15:00 | USCV_ITS ---
Mick Fritz Age: 68 Gender: M : 1955 Exam Date: 05/04/2024 12:39 Ordering Phys: Asia Trinidad APRN Technologist: CT Exam Location: [facility] [place] Indication: cp BP: 140 / 92 HR: 65 Rhythm: Sinus Technical Quality: Adequate MEASUREMENTS (Male / Female) Normal Values 2D ECHO LVOT Diameter 2.1 cm LV Ejection Fraction MOD 2C 72.6 % LV Ejection Fraction 2C AL 74.4 % LA Diameter 3.2 cm RA Systolic Volume 4C AL 26.4 ml RA Systolic Volume 4C MOD 26.0 ml LA Sys Volume AL 21.1 cm cubed LA Sys Volume Index AL 10.9 cm cubed/m squared Aorta at Sinotubular Diameter 3.0 cm IVC Diameter 1.5 cm M-MODE LA Ao Ratio MM 1.2 AV Cusp Separation MM 2.0 cm DOPPLER AV Peak Velocity 143.0 cm/s LVOT Peak Velocity 79.0 cm/s AV Area Cont Eq vti 2.6 cm squared AV Area Cont Eq pk 2.0 cm squared MV Peak Velocity 100.0 cm/s MV Area PHT 2.1 cm squared Mitral E to A Ratio 0.6 TV Peak Velocity 276.0 cm/s TR Peak Velocity 305.0 cm/s TR Peak Gradient 37.2 mmHg TV Peak E Velocity 58.0 cm/s Right Atrial Pressure 3.0 mmHg Pulmonary Artery Systolic Pressu 40.2 mmHg PV Peak Velocity 103.0 cm/s FINDINGS Left Ventricle Normal left ventricular size, systolic function and wall thickness, with no regional wall motion abnormalities. Grade I/IV diastolic dysfunction (abnormal relaxation filling pattern), normal to mildly elevated filling pressures. Left ventricular ejection fraction is estimated at 60 %. Right Ventricle Normal right ventricular size and systolic function. Mild pulmonary hypertension, RVSP 40.2 mmHg. Right Atrium The right atrium is normal in size. Left Atrium The left atrium is normal in size. Mitral Valve Structurally normal mitral valve. Trace mitral valve regurgitation. Aortic Valve Structurally normal trileaflet aortic valve. No aortic valve stenosis. Mild aortic valve regurgitation. Tricuspid Valve Structurally normal tricuspid valve. Mild tricuspid valve regurgitation. Pulmonic Valve Pulmonic valve not well visualized. Trace pulmonary valve regurgitation. Pericardium Normal pericardium without effusion. Aorta Normal ascending aorta dimension. IVC The inferior vena cava appears normal. CONCLUSIONS Normal left ventricular size, systolic function and wall thickness, with no regional wall motion abnormalities. Grade I/IV diastolic dysfunction (abnormal relaxation filling pattern), normal to mildly elevated filling pressures. Left ventricular ejection fraction is estimated at 60 %. Normal right ventricular size and systolic function. Mild pulmonary hypertension, RVSP 40.2 mmHg. Structurally normal mitral valve. Trace mitral valve regurgitation. Structurally normal trileaflet aortic valve. No aortic valve stenosis. Mild aortic valve regurgitation. There are no prior echocardiogram studies to compare. Dr. Kike Hsu MD (Electronically Signed) Final Date: 05 May 2024 13:06 S
== END 2024-05-04 12:10 | disposition home or self-care (01) ==
LOC: RAD 12:09
PROVIDERS: PCP Family Medicine; Visit Provider Nurse Practitioner Family
DX: I65.23 Occlusion and stenosis of bilateral carotid arteries (principal); G45.3 Amaurosis fugax; I51.89 Other ill-defined heart diseases; I27.20 Pulmonary hypertension, unspecified; I35.1 Nonrheumatic aortic (valve) insufficiency
CPT/HCPCS: 93306; 93880

== ENCOUNTER 2024-05-31 11:00 | Oncology outpatient (recurring) (ONCR) | payer MEDICARE, OTHER, SELFPAY ==
[2024-05-15 07:46] LABS: Basophils % 0.7 %; Eosinophils # 0.4 10^3/uL (0.0-0.8); Eosinophils % 6.4 %; Hematocrit 44.5 % (37-53); Lymphocytes # 0.9 10^3/uL (0.8-4.8); Lymphocytes % 15.1 %; Mean Corpuscular HGB Conc 32.6 g/dL (30-55); Mean Corpuscular Hemoglobin 29.4 pg (27-33); Mean Corpuscular Volume 90.1 fl (82-101); Mean Platelet Volume 9.8 fL (7.4-10.4); Monocytes # 0.6 10^3/uL (0.2-0.9); Monocytes % 10.2 %; Neutrophils # 4.03 10^3/uL (1.8-7.7); Neutrophils % 67.3 %; Nucleated Red Blood Cells % 0 %; Platelet Count 198 10^3/cmm (157-399); Red Blood Count 4.94 10^6/uL (3.85-5.65); Red Cell Distribution Width 17.2 % (12.1-15.1); White Blood Count 5.98 10^3/uL (3.29-11.43)
[2024-05-15 08:08] LABS: Alanine Aminotransferase 17 U/L (0-41); Alkaline Phosphatase 112 U/L (40-130); Aspartate Amino Transferase 19 U/L (0-40); Blood Urea Nitrogen 15 mg/dL (8-23); Calcium 8.7 mg/dL (8.5-10.5); Carbon Dioxide 25 mmol/L (22-29); Chloride 105 mmol/L (98-107); Globulin 2.6 g/dL (1.3-4.6); Glomerular Filtration Rate 83.4 mL/min (90-130); Glucose 136 mg/dL (65-115); Osmolality Calculated 297 mOsm/kg (285-295); Sodium 142 mmol/L (136-145); Total Bilirubin 1.1 mg/dL (0.15-1.2); Total Protein 6.6 g/dL (6.6-8.7)
[2024-05-15 09:55] VITALS: BP 127/87; PULSE 77; RESP 16; O2SAT 97
[2024-05-15] MEDS: palonosetron 0.25 mg/5 mL SDV IVP (10:17)
[2024-05-15] MEDS: sodium chloride 0.9% 250 ML 75 ML IV (10:17)
[2024-05-15] MEDS: dexamethasone 4 mg/mL INJ 5 mL 12 MG IVP (10:18)
[2024-05-15] MEDS: bevacizumab-awwb 390 MG in sodium chloride 0.9% (100 ml) 100 ML 230 MG IV (10:33)
[2024-05-15] MEDS: atropine 1 mg/mL SDV 1 mL 0.4 MG IV (11:22)
[2024-05-15] MEDS: leucovorin 800 MG in dextrose 5% 250 ML 166.67 MG IV (11:39)
[2024-05-15] MEDS: SODIUM CHLORIDE IV (13:40)
[2024-05-15] MEDS: ELASTOMERIC PUMP PUMP IV (13:40)
[2024-05-15] MEDS: FLUOROURACIL IV (13:40)
[2024-05-15 13:45] VITALS: BP 162/99; PULSE 81; RESP 16; TEMP 36.7; O2SAT 96
--- NOTE | 2024-05-15 13:47 | PC.NURSE ---
Pump Unhook Teaching Patient sent home with 46-hour 5-FU pump at 1345. Patient educated on how to properly flush port, deaccess port, and discontinue chemotherapy pump at 1145 on 05/17/24. Patient provided with chemotherapy disposal bag, 2 saline flushes, and 1 heparin flush. Patient was educated to bring chemotherapy pump back to infusion for proper disposal. Patient verbalized understanding using teach-back.
[2024-05-29 08:01] LABS: Basophils # 0.1 10^3/uL (0.0-0.1); Eosinophils # 0.3 10^3/uL (0.0-0.8); Eosinophils % 4.9 %; Hematocrit 45.1 % (37-53); Lymphocytes # 0.9 10^3/uL (0.8-4.8); Lymphocytes % 14.5 %; Mean Corpuscular HGB Conc 32.4 g/dL (30-55); Mean Corpuscular Hemoglobin 29.8 pg (27-33); Mean Platelet Volume 9.7 fL (7.4-10.4); Monocytes # 0.6 10^3/uL (0.2-0.9); Monocytes % 10.4 %; Neutrophils # 4.18 10^3/uL (1.8-7.7); Neutrophils % 68.7 %; Nucleated Red Blood Cells % 0 %; Platelet Count 217 10^3/cmm (157-399); Red Cell Distribution Width 16.9 % (12.1-15.1); White Blood Count 6.08 10^3/uL (3.29-11.43)
[2024-05-29 08:23] LABS: Alanine Aminotransferase 10 U/L (0-41); Alkaline Phosphatase 108 U/L (40-130); Anion Gap 17.1 (5-19); Aspartate Amino Transferase 14 U/L (0-40); Blood Urea Nitrogen 15 mg/dL (8-23); Calcium 8.7 mg/dL (8.5-10.5); Carbon Dioxide 22 mmol/L (22-29); Chloride 104 mmol/L (98-107); Creatinine Clr Calc Pharmacy 94.1364; Globulin 2.9 g/dL (1.3-4.6); Glomerular Filtration Rate 95.6 mL/min (90-130); Glucose 151 mg/dL (65-115); Osmolality Calculated 292 mOsm/kg (285-295); Potassium 4.1 mmol/L (3.5-5.1); Sodium 139 mmol/L (136-145); Total Bilirubin 0.6 mg/dL (0.15-1.2); Total Protein 6.9 g/dL (6.6-8.7)
[2024-05-29 09:58] VITALS: BP 147/88; PULSE 70; RESP 17; TEMP 36.8; O2SAT 100
[2024-05-29] MEDS: sodium chloride 0.9% 250 ML 75 ML IV (10:01)
[2024-05-29] MEDS: palonosetron 0.25 mg/5 mL SDV IVP (10:04)
[2024-05-29] MEDS: dexamethasone 4 mg/mL INJ 5 mL 12 MG IV (10:07)
[2024-05-29 10:16] LABS: Carcinoembryonic Antigen 4.8 ng/mL (0.0-4.7)
[2024-05-29] MEDS: bevacizumab-awwb 390 MG in sodium chloride 0.9% (100 ml) 100 ML 300 MG IV (10:27)
[2024-05-29] MEDS: atropine 1 mg/mL SDV 1 mL 0.4 MG IV (11:10)
[2024-05-29] MEDS: leucovorin 800 MG in dextrose 5% 250 ML 166.67 MG IV (11:22)
[2024-05-29] MEDS: FLUOROURACIL IV (13:09)
[2024-05-29] MEDS: SODIUM CHLORIDE IV (13:09)
[2024-05-29] MEDS: ELASTOMERIC PUMP PUMP IV (13:09)
[2024-05-29 13:19] VITALS: BP 131/96; PULSE 74; RESP 18; TEMP 36.8; O2SAT 96
== END 2024-06-13 23:59 | disposition home or self-care (01) ==
PROVIDERS: Family Provider Internal Medicine Medical Oncology; PCP Family Medicine; Visit Provider Nurse Practitioner Family
DX: Z45.1 Encounter for adjustment and management of infusion pump; Z53.9 Procedure and treatment not carried out, unspecified reason
CPT/HCPCS: 80053; 82378; 85025; 96368; 96375; 96413; 96415; 96416; 96417; 96523; 99214; J0461; J0640; J1100; J2469; J7050; J7060; J9190; J9206; Q5107

== ENCOUNTER 2024-07-04 12:40 | Outpatient (CLI) | payer MEDICARE, OTHER, SELFPAY ==
[2024-07-04] MEDS: iohexol 350 mg/mL 500 mL Btl (per mL) IV (13:59)
[2024-07-04] MEDS: iohexol 350 mg/mL 500 mL Btl (per mL) PO (13:59)
--- NOTE | 2024-07-04 14:00 | CT_ITS ---
WS: [id number] CT CHEST, ABDOMEN AND PELVIS WITH CONTRAST HISTORY: increased rectal bleeding, history of rectal carcinoma with metastatic disease. TECHNIQUE: Contiguous 5 mm axial imaging performed through the chest, abdomen and pelvis with IV cont rast, oral contrast has been provided. Coronal and sagittal reformats chest. Coronal and sagittal ref ormats through the abdomen and pelvis. All CT scans at [facility] use at least one of these d ose optimization techniques: automated exposure control; mA and/or kV adjustment per patient size (in cludes targeted exams where dose is matched to clinical indication); or iterative reconstruction. CONTRAST: Omnipaque 350; 100 mL IV. DLP: 707.98 mGy.cm COMPARISON: 04/04/2024, PET/CT 04/17/[address]: Reidentified is a bilateral and multiple subcentimeter pulmonary nodules that were also juju cribed on 04/04/2024. Nodules are reidentified with the largest measuring 5 mm in the lingula. Some of the nodules appear very slightly more prominent in size but this may be due to slice selection. No n ew nodule. There is a new small RIGHT pleural effusion. No pleural thickening or enhancement. Reident ified are the small mediastinal and hilar lymph nodes. RIGHT hilar lymph node 13 mm. The largest subc arinal lymph node 13 mm. The lymph nodes are measuring slightly greater in size. Mild atherosclerosis aorta. Normal size pulmonary artery. Normal size heart. LEFT subclavian Port-A-C ath. Enlarged nodular LEFT thyroid extends substernal and stable. Small hiatal hernia. Abdomen CT: Liver remains normal size. Metastatic lesions within the liver are reidentified. The meta static lesions are increasing in size. Largest lesion in the LEFT lobe is 2.1 x 2.6 cm. The smaller l esions in the RIGHT lobe are also increasing in size. There is a hepatic cyst along the inferior RIGH T lobe with an additional very tiny, subcentimeter metastatic lesion inferior to the cyst. Portal vei n is patent. No bile duct dilatation. Normal gallbladder. Normal spleen. Normal pancreas and adrenal glands. Normal size kidneys with no obstruction. There are a few small cortical hypodensities which a re too small to characterize. Atherosclerosis aorta. Stomach is is well distended with oral contrast. Mild thickening of the antrum is probably due to con traction. No small bowel obstruction. Moderate diffuse constipation. Increasing diverticular disease in the colon. Reidentified is a circumferential wall thickening involving the rectosigmoid which does appear to be progressing. The length of soft tissue thickening extends over 12 cm. The lumen is beco susan narrowed. Asymmetric wall thickening on the RIGHT measures up to 1.7 cm. Necrotic slightly enlarging celiac axis lymph node now measures 14 mm. 11 mm lymph node at the aortic bifurcation. No additional lymph nodes are identified. There is some very mild thickening of the ome ntum. This could potentially represent early carcinomatosis. Pelvic CT: Presacral soft tissue thickening. Mild stranding in the mesorectal fat. Urinary bladder is well distended. No destructive bone lesions. No osteoblastic or osteolytic bone lesions. CT/CT chest abdpel w/*[id number] IMPRESSION: 1. Multiple, bilateral, subcentimeter pulmonary nodules are reidentified. No n ew nodule. Some of these nodules are measuring just slightly greater in size, 1 to 2 mm. This may not be a significant increase in size. 2. New small RIGHT pleural effusion. 3. RIGHT hilar and subcarinal lymph nodes have slightly increased in size now measuring 13 mm diameter. 4. Liver metastasis have increased in size with the largest now measuring 2.1 x 2.6 cm. 5. Continued circumferential thickening and rectosigmoid wall thickening with narrowing of the lumen. Previously described rectal neoplasm has progressed. 6. Celiac axis lymph node has slightly increased in size and is slightly more necrotic. There is also a tiny new lymph node at the aortic bifurcation.
== END 2024-07-04 12:41 | disposition home or self-care (01) ==
LOC: RAD 12:40
PROVIDERS: Family Provider Internal Medicine Medical Oncology; PCP Family Medicine; Visit Provider Nurse Practitioner Family
DX: C20 Malignant neoplasm of rectum (principal); R91.8 Other nonspecific abnormal finding of lung field; J90 Pleural effusion, not elsewhere classified; R59.1 Generalized enlarged lymph nodes; K76.89 Other specified diseases of liver; K57.30 Diverticulosis of large intestine without perforation or abscess without bleeding
CPT/HCPCS: 71260; 74177; Q9967

== ENCOUNTER 2024-07-12 10:15 | Oncology outpatient (recurring) (ONCR) | payer MEDICARE, OTHER, SELFPAY ==
[2024-06-26 07:45] LABS: Basophils # 0.1 10^3/uL (0.0-0.1); Basophils % 0.8 %; Eosinophils # 0.3 10^3/uL (0.0-0.8); Eosinophils % 3.7 %; Hematocrit 46.2 % (37-53); Lymphocytes # 0.8 10^3/uL (0.8-4.8); Lymphocytes % 11.5 %; Mean Corpuscular HGB Conc 32.3 g/dL (30-55); Mean Corpuscular Hemoglobin 29.4 pg (27-33); Mean Corpuscular Volume 91.3 fl (82-101); Mean Platelet Volume 9.3 fL (7.4-10.4); Monocytes # 0.7 10^3/uL (0.2-0.9); Monocytes % 9.1 %; Neutrophils # 5.37 10^3/uL (1.8-7.7); Neutrophils % 74.3 %; Nucleated Red Blood Cells % 0 %; Platelet Count 269 10^3/cmm (157-399); Red Blood Count 5.06 10^6/uL (3.85-5.65); Red Cell Distribution Width 15.9 % (12.1-15.1); White Blood Count 7.23 10^3/uL (3.29-11.43)
[2024-06-26 08:14] LABS: Carcinoembryonic Antigen 6.2 ng/mL (0.0-4.7)
[2024-06-26 08:25] LABS: Alanine Aminotransferase 11 U/L (0-41); Albumin Level 3.9 g/dL (3.5-5.2); Alkaline Phosphatase 108 U/L (40-130); Aspartate Amino Transferase 15 U/L (0-40); Blood Urea Nitrogen 16 mg/dL (8-23); Calcium 8.6 mg/dL (8.5-10.5); Carbon Dioxide 23 mmol/L (22-29); Chloride 105 mmol/L (98-107); Globulin 2.9 g/dL (1.3-4.6); Glucose 149 mg/dL (65-115); Osmolality Calculated 292 mOsm/kg (285-295); Sodium 139 mmol/L (136-145); Total Bilirubin 0.5 mg/dL (0.15-1.2); Total Protein 6.8 g/dL (6.6-8.7)
[2024-06-26 09:45] VITALS: BP 161/88; PULSE 70; RESP 16; TEMP 36.7; O2SAT 95
[2024-06-26] MEDS: sodium chloride 0.9% 250 ML 75 ML IV (10:04)
[2024-06-26] MEDS: palonosetron 0.25 mg/5 mL SDV IVP (10:04)
[2024-06-26] MEDS: dexamethasone 4 mg/mL INJ 5 mL 12 MG IVP (10:05)
[2024-06-26] MEDS: bevacizumab-awwb 370 MG in sodium chloride 0.9% (100 ml) 100 ML 228 MG IV (10:37)
[2024-06-26] MEDS: atropine 1 mg/mL SDV 1 mL 0.4 MG IV (11:26)
[2024-06-26] MEDS: leucovorin 780 MG in dextrose 5% 250 ML 166.67 MG IV (11:39)
[2024-06-26 13:22] VITALS: BP 145/83; PULSE 58; RESP 16; TEMP 36.6; O2SAT 95
[2024-06-26] MEDS: FLUOROURACIL IV (13:27)
[2024-06-26] MEDS: ELASTOMERIC PUMP PUMP IV (13:27)
[2024-06-26] MEDS: SODIUM CHLORIDE IV (13:27)
[2024-06-28 11:22] VITALS: BP 132/80; PULSE 77; RESP 18; TEMP 36.6; O2SAT 98
[2024-07-10 07:53] LABS: Basophils # 0.1 10^3/uL (0.0-0.1); Basophils % 0.9 %; Eosinophils # 0.3 10^3/uL (0.0-0.8); Eosinophils % 4.1 %; Hematocrit 46.9 % (37-53); Mean Corpuscular HGB Conc 32.6 g/dL (30-55); Mean Corpuscular Hemoglobin 29.4 pg (27-33); Mean Platelet Volume 9.7 fL (7.4-10.4); Monocytes # 0.8 10^3/uL (0.2-0.9); Monocytes % 10.4 %; Neutrophils % 71.2 %; Nucleated Red Blood Cells % 0 %; Platelet Count 249 10^3/cmm (157-399); Red Blood Count 5.21 10^6/uL (3.85-5.65); Red Cell Distribution Width 15.6 % (12.1-15.1); White Blood Count 7.59 10^3/uL (3.29-11.43)
[2024-07-10 08:16] LABS: Alanine Aminotransferase 13 U/L (0-41); Albumin Level 4.1 g/dL (3.5-5.2); Alkaline Phosphatase 124 U/L (40-130); Aspartate Amino Transferase 17 U/L (0-40); Blood Urea Nitrogen 17 mg/dL (8-23); Calcium 8.5 mg/dL (8.5-10.5); Carbon Dioxide 23 mmol/L (22-29); Chloride 104 mmol/L (98-107); Creatinine Clr Calc Pharmacy 91.6373; Globulin 3.1 g/dL (1.3-4.6); Glucose 111 mg/dL (65-115); Osmolality Calculated 290 mOsm/kg (285-295); Sodium 139 mmol/L (136-145); Total Bilirubin 0.9 mg/dL (0.15-1.2); Total Protein 7.2 g/dL (6.6-8.7)
[2024-07-10 09:00] VITALS: BP 123/80; PULSE 74; RESP 16; TEMP 36.7; O2SAT 94
[2024-07-10] MEDS: palonosetron 0.25 mg/5 mL SDV IVP (09:09)
[2024-07-10] MEDS: sodium chloride 0.9% 250 ML 75 ML IV (09:09)
[2024-07-10] MEDS: dexamethasone 4 mg/mL INJ 5 mL 12 MG IV (09:10)
[2024-07-10] MEDS: bevacizumab-awwb 380 MG in sodium chloride 0.9% (100 ml) 100 ML 230 MG IV (09:41)
[2024-07-10] MEDS: atropine 1 mg/mL SDV 1 mL 0.4 MG IV (10:14)
[2024-07-10] MEDS: IRINOTECAN IV (10:25)
[2024-07-10] MEDS: DEXTROSE 5% IV (10:25)
[2024-07-10] MEDS: leucovorin 780 MG in dextrose 5% 250 ML 166.67 MG IV (10:25)
[2024-07-10 12:02] VITALS: BP 133/80; PULSE 68; O2SAT 94
[2024-07-10] MEDS: SODIUM CHLORIDE IV (12:04)
[2024-07-10] MEDS: ELASTOMERIC PUMP PUMP IV (12:04)
[2024-07-10] MEDS: FLUOROURACIL IV (12:04)
== END 2024-07-14 23:59 | disposition home or self-care (01) ==
PROVIDERS: Family Provider Internal Medicine Medical Oncology; PCP Family Medicine; Visit Provider Nurse Practitioner Family
DX: Z45.1 Encounter for adjustment and management of infusion pump (principal); Z53.9 Procedure and treatment not carried out, unspecified reason
CPT/HCPCS: 80053; 82378; 85025; 96368; 96375; 96413; 96415; 96416; 96417; 96523; 99214; J0461; J0640; J1100; J2469; J7050; J7060; J9190; J9206; Q5107

== ENCOUNTER 2024-08-07 07:45 | Oncology outpatient (recurring) (ONCR) | payer MEDICARE, OTHER, SELFPAY ==
[2024-07-24 08:10] LABS: Basophils % 0.6 %; Eosinophils # 0.2 10^3/uL (0.0-0.8); Eosinophils % 3.1 %; Hematocrit 44.8 % (37-53); Lymphocytes # 0.8 10^3/uL (0.8-4.8); Lymphocytes % 14.9 %; Mean Corpuscular HGB Conc 32.4 g/dL (30-55); Mean Corpuscular Hemoglobin 28.7 pg (27-33); Mean Corpuscular Volume 88.5 fl (82-101); Mean Platelet Volume 9.4 fL (7.4-10.4); Monocytes # 0.5 10^3/uL (0.2-0.9); Monocytes % 10.4 %; Neutrophils % 70.6 %; Nucleated Red Blood Cells % 0 %; Platelet Count 244 10^3/cmm (157-399); Red Blood Count 5.06 10^6/uL (3.85-5.65); Red Cell Distribution Width 15.6 % (12.1-15.1)
[2024-07-24 08:11] LABS: Alanine Aminotransferase 9 U/L (0-41); Albumin Level 3.8 g/dL (3.5-5.2); Alkaline Phosphatase 112 U/L (40-130); Anion Gap 14.6 (5-19); Blood Urea Nitrogen 11 mg/dL (8-23); Calcium 8.3 mg/dL (8.5-10.5); Carbon Dioxide 25 mmol/L (22-29); Chloride 103 mmol/L (98-107); Glucose 198 mg/dL (65-115); Osmolality Calculated 293 mOsm/kg (285-295); Potassium 3.6 mmol/L (3.5-5.1); Sodium 139 mmol/L (136-145); Total Bilirubin 0.7 mg/dL (0.15-1.2); Total Protein 6.8 g/dL (6.6-8.7)
[2024-07-24 09:13] LABS: Aspartate Amino Transferase 15 U/L (0-40)
[2024-07-24] MEDS: sodium chloride 0.9% 250 ML 75 ML IV (10:07)
[2024-07-24] MEDS: palonosetron 0.25 mg/5 mL SDV IVP (10:15)
[2024-07-24] MEDS: dexamethasone 4 mg/mL INJ 5 mL 12 MG IVP (10:17)
[2024-07-24] MEDS: bevacizumab-awwb 380 MG in sodium chloride 0.9% (100 ml) 100 ML 230 MG IV (10:24)
[2024-07-24] MEDS: atropine 1 mg/mL SDV 1 mL 0.4 MG IV (11:13)
[2024-07-24] MEDS: DEXTROSE 5% IV (11:24)
[2024-07-24] MEDS: IRINOTECAN IV (11:24)
[2024-07-24] MEDS: leucovorin 780 MG in dextrose 5% 250 ML 166.67 MG IV (11:24)
[2024-07-24 12:55] VITALS: BP 132/80; PULSE 53; RESP 16; TEMP 36.6; O2SAT 99
[2024-07-24] MEDS: ELASTOMERIC PUMP PUMP IV (13:01)
[2024-07-24] MEDS: SODIUM CHLORIDE IV (13:01)
[2024-07-24] MEDS: FLUOROURACIL IV (13:01)
[2024-08-07 08:07] LABS: Basophils % 0.7 %; Eosinophils # 0.1 10^3/uL (0.0-0.8); Eosinophils % 2.2 %; Hematocrit 41.7 % (37-53); Lymphocytes # 0.8 10^3/uL (0.8-4.8); Mean Corpuscular HGB Conc 31.9 g/dL (30-55); Mean Corpuscular Hemoglobin 27.9 pg (27-33); Mean Corpuscular Volume 87.4 fl (82-101); Mean Platelet Volume 9.1 fL (7.4-10.4); Monocytes # 0.7 10^3/uL (0.2-0.9); Monocytes % 11.4 %; Neutrophils # 4.27 10^3/uL (1.8-7.7); Neutrophils % 71.9 %; Nucleated Red Blood Cells % 0 %; Platelet Count 224 10^3/cmm (157-399); Red Blood Count 4.77 10^6/uL (3.85-5.65); Red Cell Distribution Width 15.9 % (12.1-15.1); White Blood Count 5.94 10^3/uL (3.29-11.43)
[2024-08-07 08:26] LABS: Alanine Aminotransferase 7 U/L (0-41); Albumin Level 3.6 g/dL (3.5-5.2); Alkaline Phosphatase 98 U/L (40-130); Anion Gap 13.7 (5-19); Aspartate Amino Transferase 12 U/L (0-40); Blood Urea Nitrogen 13 mg/dL (8-23); Calcium 8.1 mg/dL (8.5-10.5); Carbon Dioxide 25 mmol/L (22-29); Chloride 104 mmol/L (98-107); Globulin 2.6 g/dL (1.3-4.6); Glucose 95 mg/dL (65-115); Osmolality Calculated 288 mOsm/kg (285-295); Potassium 3.7 mmol/L (3.5-5.1); Sodium 139 mmol/L (136-145); Total Bilirubin 0.5 mg/dL (0.15-1.2); Total Protein 6.2 g/dL (6.6-8.7)
[2024-08-07 08:35] LABS: Carcinoembryonic Antigen 9.8 ng/mL (0.0-4.7)
[2024-08-07] MEDS: sodium chloride 0.9% 250 ML 75 ML IV (10:24)
[2024-08-07] MEDS: dexamethasone 4 mg/mL INJ 5 mL 12 MG IVP (10:25)
[2024-08-07] MEDS: palonosetron 0.25 mg/5 mL SDV IVP (10:31)
[2024-08-07] MEDS: bevacizumab-awwb 380 MG in sodium chloride 0.9% (100 ml) 100 ML 300 MG IV (10:45)
[2024-08-07] MEDS: atropine 1 mg/mL SDV 1 mL 0.4 MG IV (11:20)
[2024-08-07] MEDS: leucovorin 780 MG in dextrose 5% 250 ML 166.67 MG IV (11:36)
[2024-08-07 13:16] VITALS: BP 144/92; PULSE 69; TEMP 36.2; O2SAT 96
[2024-08-07] MEDS: FLUOROURACIL IV (13:22)
[2024-08-07] MEDS: ELASTOMERIC PUMP PUMP IV (13:22)
[2024-08-07] MEDS: SODIUM CHLORIDE IV (13:22)
== END 2024-08-13 23:59 | disposition home or self-care (01) ==
PROVIDERS: Family Provider Internal Medicine Medical Oncology; PCP Family Medicine; Visit Provider Nurse Practitioner Family
DX: C20 Malignant neoplasm of rectum (principal); Z53.9 Procedure and treatment not carried out, unspecified reason; Z51.11 Encounter for antineoplastic chemotherapy; Z51.12 Encounter for antineoplastic immunotherapy; Z87.891 Personal history of nicotine dependence; Z79.899 Other long term (current) drug therapy; R53.83 Other fatigue; R53.1 Weakness; C78.7 Secondary malignant neoplasm of liver and intrahepatic bile duct; C77.2 Secondary and unspecified malignant neoplasm of intra-abdominal lymph nodes
CPT/HCPCS: 80053; 82378; 85025; 96368; 96375; 96413; 96415; 96416; 96417; 99214; J0461; J0640; J1100; J2469; J7050; J7060; J9190; J9206; Q5107

== ENCOUNTER 2024-09-04 07:30 | Oncology outpatient (recurring) (ONCR) | payer MEDICARE, OTHER, SELFPAY ==
[2024-08-21 07:54] LABS: Basophils # 0.1 10^3/uL (0.0-0.1); Basophils % 0.6 %; Eosinophils # 0.2 10^3/uL (0.0-0.8); Eosinophils % 2.3 %; Hematocrit 45.5 % (37-53); Lymphocytes % 12.3 %; Mean Corpuscular HGB Conc 31.9 g/dL (30-55); Mean Corpuscular Hemoglobin 27.6 pg (27-33); Mean Corpuscular Volume 86.5 fl (82-101); Mean Platelet Volume 9.5 fL (7.4-10.4); Monocytes # 0.9 10^3/uL (0.2-0.9); Neutrophils # 5.92 10^3/uL (1.8-7.7); Neutrophils % 73.2 %; Nucleated Red Blood Cells % 0 %; Platelet Count 244 10^3/cmm (157-399); Red Blood Count 5.26 10^6/uL (3.85-5.65); Red Cell Distribution Width 16.2 % (12.1-15.1)
[2024-08-21 08:35] LABS: Alanine Aminotransferase 12 U/L (0-41); Albumin Level 4.1 g/dL (3.5-5.2); Alkaline Phosphatase 121 U/L (40-130); Anion Gap 12.3 (5-19); Aspartate Amino Transferase 19 U/L (0-40); Blood Urea Nitrogen 12 mg/dL (8-23); Calcium 8.6 mg/dL (8.5-10.5); Carbon Dioxide 26 mmol/L (22-29); Chloride 105 mmol/L (98-107); Globulin 3.2 g/dL (1.3-4.6); Glucose 125 mg/dL (65-115); Osmolality Calculated 289 mOsm/kg (285-295); Potassium 4.3 mmol/L (3.5-5.1); Sodium 139 mmol/L (136-145); Total Bilirubin 0.9 mg/dL (0.15-1.2); Total Protein 7.3 g/dL (6.6-8.7)
[2024-08-21 09:30] VITALS: BP 130/88; PULSE 79; RESP 16; TEMP 36.3; O2SAT 98
[2024-08-21] MEDS: HYDROcodone-acetaminophen 10-325 mg Tablet 2 TAB PO (09:45)
[2024-08-21] MEDS: sodium chloride 0.9% 250 ML 75 ML IV (09:46)
[2024-08-21] MEDS: palonosetron 0.25 mg/5 mL SDV IVP (09:47)
[2024-08-21] MEDS: bevacizumab-awwb 380 MG in sodium chloride 0.9% (100 ml) 100 ML 230 MG IV (10:17)
[2024-08-21] MEDS: atropine 1 mg/mL SDV 1 mL 0.4 MG IV (11:18)
[2024-08-21] MEDS: leucovorin 780 MG in dextrose 5% 250 ML 166.67 MG IV (11:37)
[2024-08-21] MEDS: FLUOROURACIL IV (13:34)
[2024-08-21] MEDS: ELASTOMERIC PUMP PUMP IV (13:34)
[2024-08-21] MEDS: SODIUM CHLORIDE IV (13:34)
[2024-08-21 13:35] VITALS: BP 147/82; PULSE 53; RESP 16; TEMP 36.3; O2SAT 97
[2024-09-04 07:45] VITALS: BP 140/90; PULSE 85; RESP 16; TEMP 36.3; O2SAT 97
[2024-09-04] MEDS: sodium chloride 0.9% 250 ML 75 ML IV (08:24)
[2024-09-04] MEDS: dexamethasone 4 mg/mL INJ 5 mL 12 MG IVP (08:24)
[2024-09-04] MEDS: palonosetron 0.25 mg/5 mL SDV IVP (08:30)
[2024-09-04] MEDS: SODIUM CHLORIDE 0.9% IV (08:41)
[2024-09-04] MEDS: BEVACIZUMAB BVZR IV (08:41)
[2024-09-04] MEDS: atropine 1 mg/mL SDV 1 mL 0.4 MG IV (09:27)
[2024-09-04] MEDS: leucovorin 800 MG in dextrose 5% 250 ML 166.67 MG IV (09:39)
[2024-09-04 11:15] VITALS: BP 145/91; PULSE 54; RESP 16; TEMP 36.6; O2SAT 96
[2024-09-04] MEDS: FLUOROURACIL IV (11:15)
[2024-09-04] MEDS: ELASTOMERIC PUMP PUMP IV (11:15)
[2024-09-04] MEDS: SODIUM CHLORIDE IV (11:15)
== END 2024-09-13 23:59 | disposition home or self-care (01) ==
PROVIDERS: Family Provider Internal Medicine Medical Oncology; PCP Family Medicine; Visit Provider Nurse Practitioner Family
DX: C20 Malignant neoplasm of rectum (principal); Z53.9 Procedure and treatment not carried out, unspecified reason; Z51.11 Encounter for antineoplastic chemotherapy; Z51.12 Encounter for antineoplastic immunotherapy; Z79.899 Other long term (current) drug therapy
CPT/HCPCS: 80053; 85025; 96368; 96375; 96413; 96415; 96416; 96417; 99214; J0461; J0640; J1100; J2469; J7050; J7060; J9190; J9206; Q5107; Q5118

== ENCOUNTER 2024-10-10 08:30 | Oncology outpatient (recurring) (ONCR) | payer MEDICARE, OTHER, SELFPAY ==
[2024-09-18 07:57] LABS: Basophils # 0.1 10^3/uL (0.0-0.1); Basophils % 0.7 %; Eosinophils # 0.3 10^3/uL (0.0-0.8); Eosinophils % 3.4 %; Hematocrit 41.8 % (37-53); Lymphocytes # 0.9 10^3/uL (0.8-4.8); Lymphocytes % 12.1 %; Mean Corpuscular HGB Conc 31.8 g/dL (30-55); Mean Corpuscular Hemoglobin 27.3 pg (27-33); Mean Corpuscular Volume 85.7 fl (82-101); Mean Platelet Volume 9.3 fL (7.4-10.4); Monocytes # 0.8 10^3/uL (0.2-0.9); Monocytes % 10.1 %; Neutrophils # 5.55 10^3/uL (1.8-7.7); Neutrophils % 72.9 %; Nucleated Red Blood Cells % 0 %; Platelet Count 241 10^3/cmm (157-399); Red Blood Count 4.88 10^6/uL (3.85-5.65); Red Cell Distribution Width 17.3 % (12.1-15.1); White Blood Count 7.61 10^3/uL (3.29-11.43)
[2024-09-18 08:38] LABS: Alanine Aminotransferase 10 U/L (0-41); Albumin Level 3.7 g/dL (3.5-5.2); Alkaline Phosphatase 96 U/L (40-130); Aspartate Amino Transferase 16 U/L (0-40); Blood Urea Nitrogen 12 mg/dL (8-23); Calcium 7.9 mg/dL (8.5-10.5); Carbon Dioxide 22 mmol/L (22-29); Chloride 103 mmol/L (98-107); Creatinine Clr Calc Pharmacy 91.8543; Globulin 2.8 g/dL (1.3-4.6); Glucose 134 mg/dL (65-115); Osmolality Calculated 286 mOsm/kg (285-295); Sodium 137 mmol/L (136-145); Total Bilirubin 0.7 mg/dL (0.15-1.2); Total Protein 6.5 g/dL (6.6-8.7)
[2024-09-18 08:43] LABS: Anion Gap 16.3 (5-19); Potassium 4.3 mmol/L (3.5-5.1)
[2024-09-18 09:25] VITALS: BP 136/91; PULSE 75; RESP 16; TEMP 36.4; O2SAT 95
[2024-09-18] MEDS: sodium chloride 0.9% 250 ML 75 ML IV (09:37)
[2024-09-18] MEDS: palonosetron 0.25 mg/5 mL SDV IVP (09:38)
[2024-09-18] MEDS: dexamethasone 4 mg/mL INJ 5 mL 12 MG IVP (09:39)
[2024-09-18] MEDS: BEVACIZUMAB BVZR IV (10:38)
[2024-09-18] MEDS: SODIUM CHLORIDE 0.9% IV (10:38)
[2024-09-18] MEDS: atropine 1 mg/mL SDV 1 mL 0.4 MG IV (11:11)
[2024-09-18] MEDS: leucovorin 800 MG in dextrose 5% 250 ML 166.67 MG IV (11:25)
[2024-09-18] MEDS: SODIUM CHLORIDE IV (12:59)
[2024-09-18] MEDS: ELASTOMERIC PUMP PUMP IV (12:59)
[2024-09-18] MEDS: FLUOROURACIL IV (12:59)
[2024-09-18 13:02] VITALS: BP 144/85; PULSE 65; O2SAT 97
--- NOTE | 2024-10-01 09:00 | CT_ITS ---
WS: [id number] CT CHEST, ABDOMEN AND PELVIS WITH CONTRAST HISTORY: Followup metastatic rectal cancer TECHNIQUE: Contiguous 5 mm axial imaging performed through the chest, abdomen and pelvis with IV cont rast, oral contrast has been provided. Coronal and sagittal reformats chest. Coronal and sagittal ref ormats through the abdomen and pelvis. All CT scans at [facility] use at least one of these d ose optimization techniques: automated exposure control; mA and/or kV adjustment per patient size (in cludes targeted exams where dose is matched to clinical indication); or iterative reconstruction. CONTRAST: Omnipaque 350; 100 mL IV. DLP: 695.70 mGy.cm COMPARISON: 07/04/[address]: Reidentified are small bilateral pulmonary nodules which have been present on prior studies . New tree-in-bud airspace disease RIGHT upper lobe. Small RIGHT pleural effusion has slightly decrea sed in size. Mild pleural thickening along the fissures. Mild cardiomegaly. RIGHT hilar lymph node at 13.7 mm is increased in size. LEFT thyroid nodules. Normal sized thoracic aorta and pulmonary artery. LEFT subclavian Port-A-Cath. Abdomen CT: Numerous metastatic lesions scattered throughout the liver. These metastatic sites have i ncreased in size. The largest in the LEFT lobe is 3.4 x 4.0 cm. There are additional hepatic cysts al so. Normal portal vein. Negative gallbladder normal size spleen. Normal pancreas and adrenal glands. No renal obstruction. No change in the LEFT renal cyst. Moderate atherosclerosis aorta. Bowel distended stomach. No small bowel obstruction. Diffuse constipation. Circumferential thickening of the rectosigmoid wall which does appear slightly improved since the prior study. Max diameter is 1.8 cm. Presacral soft tissue thickening and mesorectal fat stranding. Numerous diverticula in the di stal colon. There is new ascites around the liver and extending along the paracolic gutters. Soft tissue omental nodule 2.5 cm RIGHT upper abdomen. Small bowel wall thickening in the RIGHT upper abdomen. New very m ild omental thickening and nodularity. Nodule adjacent to a loop of small bowel in the RIGHT pelvis m easures 1.[address]: Small amount of fluid with presacral soft tissue thickening in the pelvis. Bladder is norm ally distended. No destructive bone lesions. CT/CT chest abdpel w/*[id number] IMPRESSION: 1. No new pulmonary nodules. 2. New RIGHT upper lobe tree-in-bud airspace disease most likely endobronchial pneumonia. 3. Slight decrease in size of the small RIGHT pleural effusion. 4. RIGHT hilar lymph node has slightly increased in size since 07/04/2024. 5. Progression of metastatic liver disease. 6. New ascites. 7. Mild thickening and nodularity of the omentum 8. There are a few scattered small bowel loops with wall thickening. Omental n odule 2.5 cm in the RIGHT upper abdomen. Suspect progression of metastatic dise ase. Metastatic implants along the small bowel are not excluded. 9. Circumferential rectosigmoid wall thickening with minimal improvement. Poss ible metastatic nodule inseparable from a loop of small bowel in the RIGHT pelv is.
[2024-10-01] MEDS: iohexol 350 mg/mL 500 mL Btl (per mL) PO (09:15)
[2024-10-01] MEDS: iohexol 350 mg/mL 500 mL Btl (per mL) IV (09:38)
[2024-10-02 07:46] LABS: Basophils # 0.1 10^3/uL (0.0-0.1); Basophils % 0.7 %; Eosinophils # 0.2 10^3/uL (0.0-0.8); Eosinophils % 2.5 %; Lymphocytes # 0.8 10^3/uL (0.8-4.8); Lymphocytes % 9.9 %; Mean Corpuscular HGB Conc 31.9 g/dL (30-55); Mean Corpuscular Hemoglobin 26.9 pg (27-33); Mean Corpuscular Volume 84.2 fl (82-101); Mean Platelet Volume 8.9 fL (7.4-10.4); Monocytes # 1.1 10^3/uL (0.2-0.9); Monocytes % 13.6 %; Neutrophils # 5.91 10^3/uL (1.8-7.7); Neutrophils % 72.6 %; Nucleated Red Blood Cells % 0 %; Platelet Count 273 10^3/cmm (157-399); Red Blood Count 4.99 10^6/uL (3.85-5.65); Red Cell Distribution Width 17.5 % (12.1-15.1); White Blood Count 8.15 10^3/uL (3.29-11.43)
[2024-10-02 08:04] LABS: Alanine Aminotransferase 10 U/L (0-41); Albumin Level 3.9 g/dL (3.5-5.2); Alkaline Phosphatase 120 U/L (40-130); Anion Gap 13.1 (5-19); Aspartate Amino Transferase 16 U/L (0-40); Blood Urea Nitrogen 12 mg/dL (8-23); Carbon Dioxide 26 mmol/L (22-29); Chloride 102 mmol/L (98-107); Creatinine Clr Calc Pharmacy 91.8543; Glucose 112 mg/dL (65-115); Osmolality Calculated 285 mOsm/kg (285-295); Potassium 4.1 mmol/L (3.5-5.1); Sodium 137 mmol/L (136-145); Total Bilirubin 1.3 mg/dL (0.15-1.2); Total Protein 6.9 g/dL (6.6-8.7)
[2024-10-04 08:15] LABS: Basophils % 0.5 %; Eosinophils # 0.2 10^3/uL (0.0-0.8); Eosinophils % 2.7 %; Hematocrit 39.9 % (37-53); Lymphocytes # 0.8 10^3/uL (0.8-4.8); Lymphocytes % 12.3 %; Mean Corpuscular HGB Conc 31.1 g/dL (30-55); Mean Corpuscular Hemoglobin 26.7 pg (27-33); Mean Platelet Volume 9.1 fL (7.4-10.4); Monocytes # 0.9 10^3/uL (0.2-0.9); Monocytes % 14.7 %; Neutrophils # 4.28 10^3/uL (1.8-7.7); Nucleated Red Blood Cells % 0 %; Platelet Count 272 10^3/cmm (157-399); Red Blood Count 4.64 10^6/uL (3.85-5.65); Red Cell Distribution Width 17.4 % (12.1-15.1)
[2024-10-04 08:26] LABS: Alanine Aminotransferase 12 U/L (0-41); Albumin Level 3.6 g/dL (3.5-5.2); Alkaline Phosphatase 111 U/L (40-130); Aspartate Amino Transferase 17 U/L (0-40); Blood Urea Nitrogen 15 mg/dL (8-23); Calcium 8.8 mg/dL (8.5-10.5); Carbon Dioxide 26 mmol/L (22-29); Chloride 102 mmol/L (98-107); Creatinine Clr Calc Pharmacy 91.6373; Globulin 2.9 g/dL (1.3-4.6); Glucose 135 mg/dL (65-115); Osmolality Calculated 287 mOsm/kg (285-295); Sodium 137 mmol/L (136-145); Total Bilirubin 0.7 mg/dL (0.15-1.2); Total Protein 6.5 g/dL (6.6-8.7)
[2024-10-04] MEDS: dextrose 5% 250 ML 75 ML IV (10:23)
[2024-10-04] MEDS: dexamethasone 4 mg/mL INJ 5 mL 12 MG IVP (10:27)
[2024-10-04] MEDS: palonosetron 0.25 mg/5 mL SDV IVP (10:33)
[2024-10-04] MEDS: famotidine 20 mg/2 mL INJ 40 MG IVP (10:37)
[2024-10-04] MEDS: DEXTROSE 5% IV (11:30)
[2024-10-04] MEDS: OXALIPLATIN IV (11:30)
[2024-10-04] MEDS: leucovorin 790 MG in dextrose 5% 250 ML 62.5 MG IV (11:30)
[2024-10-04] MEDS: fluorouraciL 50 mg/ml MDV 100 mL 800 MG IVP (14:12)
[2024-10-04] MEDS: FLUOROURACIL IV (14:21)
[2024-10-04] MEDS: SODIUM CHLORIDE IV (14:21)
[2024-10-04] MEDS: ELASTOMERIC PUMP PUMP IV (14:21)
[2024-10-04 16:16] VITALS: BP 135/88; PULSE 88; RESP 16; TEMP 36.8; O2SAT 95
[2024-10-10 08:35] LABS: Basophils % 0.7 %; Eosinophils # 0.2 10^3/uL (0.0-0.8); Eosinophils % 2.8 %; Lymphocytes # 0.9 10^3/uL (0.8-4.8); Lymphocytes % 14.1 %; Mean Corpuscular Hemoglobin 27.1 pg (27-33); Mean Corpuscular Volume 84.6 fl (82-101); Mean Platelet Volume 9.6 fL (7.4-10.4); Monocytes # 0.4 10^3/uL (0.2-0.9); Monocytes % 5.7 %; Neutrophils # 4.66 10^3/uL (1.8-7.7); Nucleated Red Blood Cells % 0 %; Platelet Count 301 10^3/cmm (157-399); Red Blood Count 4.73 10^6/uL (3.85-5.65); White Blood Count 6.12 10^3/uL (3.29-11.43)
[2024-10-10 08:52] LABS: Alanine Aminotransferase 13 U/L (0-41); Albumin Level 3.7 g/dL (3.5-5.2); Alkaline Phosphatase 122 U/L (40-130); Anion Gap 14.4 (5-19); Aspartate Amino Transferase 17 U/L (0-40); Blood Urea Nitrogen 15 mg/dL (8-23); Calcium 8.9 mg/dL (8.5-10.5); Carbon Dioxide 26 mmol/L (22-29); Chloride 98 mmol/L (98-107); Creatinine Clr Calc Pharmacy 92.9411; Globulin 2.9 g/dL (1.3-4.6); Glucose 108 mg/dL (65-115); Osmolality Calculated 279 mOsm/kg (285-295); Potassium 4.4 mmol/L (3.5-5.1); Sodium 134 mmol/L (136-145); Total Bilirubin 0.9 mg/dL (0.15-1.2); Total Protein 6.6 g/dL (6.6-8.7)
[2024-10-10] MEDS: sodium chloride 0.9% 1,000 ML 999 ML IV (10:33)
[2024-10-10] MEDS: famotidine 20 mg/2 mL INJ IVP (10:34)
[2024-10-10] MEDS: dexamethasone 10 mg/mL INJ 12 MG IVP (10:36)
[2024-10-10 11:44] VITALS: BP 136/80; PULSE 69; RESP 16; TEMP 36.9; O2SAT 96
== END 2024-10-13 23:59 | disposition home or self-care (01) ==
PROVIDERS: Internal Medicine Medical Oncology; Nurse Practitioner; Family Provider Internal Medicine Medical Oncology; PCP Family Medicine; Visit Provider Internal Medicine Hematology & Oncology
DX: C20 Malignant neoplasm of rectum; Z79.899 Other long term (current) drug therapy; Z87.891 Personal history of nicotine dependence; Z53.9 Procedure and treatment not carried out, unspecified reason
CPT/HCPCS: 71260; 74177; 80053; 82378; 85025; 96360; 96368; 96375; 96411; 96413; 96415; 96416; 96417; 99214; 99215; J0461; J0640; J1100; J2469; J3490; J7030; J7050; J7060; J9190; J9206; J9263; Q5118

== ENCOUNTER 2024-11-01 07:30 | Oncology outpatient (recurring) (ONCR) | payer MEDICARE, OTHER, SELFPAY ==
[2024-10-18] MEDS: alteplase 1 mg/mL SDV 2 mL 2 MG INTRACATH (07:50)
[2024-10-18 08:00] LABS: Basophils % 0.9 %; Eosinophils # 0.1 10^3/uL (0.0-0.8); Eosinophils % 4.1 %; Hematocrit 40.5 % (37-53); Lymphocytes # 0.6 10^3/uL (0.8-4.8); Lymphocytes % 17.5 %; Mean Corpuscular HGB Conc 31.1 g/dL (30-55); Mean Corpuscular Hemoglobin 26.7 pg (27-33); Mean Corpuscular Volume 85.8 fl (82-101); Mean Platelet Volume 9.3 fL (7.4-10.4); Monocytes # 0.7 10^3/uL (0.2-0.9); Monocytes % 20.3 %; Neutrophils # 1.82 10^3/uL (1.8-7.7); Neutrophils % 56.9 %; Nucleated Red Blood Cells % 0 %; Platelet Count 213 10^3/cmm (157-399); Red Blood Count 4.72 10^6/uL (3.85-5.65); Red Cell Distribution Width 18.5 % (12.1-15.1)
[2024-10-18 08:17] LABS: Alanine Aminotransferase 14 U/L (0-41); Albumin Level 3.7 g/dL (3.5-5.2); Alkaline Phosphatase 120 U/L (40-130); Anion Gap 15.9 (5-19); Aspartate Amino Transferase 20 U/L (0-40); Blood Urea Nitrogen 11 mg/dL (8-23); Calcium 8.7 mg/dL (8.5-10.5); Carbon Dioxide 25 mmol/L (22-29); Chloride 105 mmol/L (98-107); Creatinine Clr Calc Pharmacy 89.9257; Globulin 2.6 g/dL (1.3-4.6); Glucose 105 mg/dL (65-115); Osmolality Calculated 294 mOsm/kg (285-295); Potassium 3.9 mmol/L (3.5-5.1); Sodium 142 mmol/L (136-145); Total Bilirubin 0.8 mg/dL (0.15-1.2); Total Protein 6.3 g/dL (6.6-8.7)
[2024-10-18] MEDS: famotidine 20 mg/2 mL INJ 40 MG IVP (09:56)
[2024-10-18] MEDS: dextrose 5% 250 ML 25 ML IV (09:56)
[2024-10-18] MEDS: dexamethasone 4 mg/mL INJ 5 mL 12 MG IVP (10:01)
[2024-10-18] MEDS: palonosetron 0.25 mg/5 mL SDV IVP (10:18)
[2024-10-18] MEDS: leucovorin 790 MG in dextrose 5% 250 ML 62.5 MG IV (10:48)
[2024-10-18] MEDS: OXALIPLATIN IV (10:49)
[2024-10-18] MEDS: DEXTROSE 5% IV (10:49)
[2024-10-18] MEDS: ELASTOMERIC PUMP PUMP IV (13:09)
[2024-10-18] MEDS: FLUOROURACIL IV (13:09)
[2024-10-18 13:25] VITALS: BP 167/89; PULSE 64; RESP 18; TEMP 36.6; O2SAT 98
[2024-11-01 08:10] LABS: Basophils % 0.5 %; Eosinophils # 0.1 10^3/uL (0.0-0.8); Eosinophils % 2.4 %; Hematocrit 40.9 % (37-53); Lymphocytes # 0.8 10^3/uL (0.8-4.8); Lymphocytes % 13.8 %; Mean Corpuscular HGB Conc 31.5 g/dL (30-55); Mean Corpuscular Volume 85.7 fl (82-101); Mean Platelet Volume 9.3 fL (7.4-10.4); Monocytes # 1.1 10^3/uL (0.2-0.9); Neutrophils # 3.43 10^3/uL (1.8-7.7); Neutrophils % 62.4 %; Nucleated Red Blood Cells % 0 %; Platelet Count 209 10^3/cmm (157-399); Red Blood Count 4.77 10^6/uL (3.85-5.65); Red Cell Distribution Width 19.5 % (12.1-15.1)
[2024-11-01 08:25] LABS: Alanine Aminotransferase 17 U/L (0-41); Albumin Level 3.9 g/dL (3.5-5.2); Alkaline Phosphatase 146 U/L (40-130); Aspartate Amino Transferase 23 U/L (0-40); Blood Urea Nitrogen 17 mg/dL (8-23); Calcium 9.4 mg/dL (8.5-10.5); Carbon Dioxide 27 mmol/L (22-29); Chloride 103 mmol/L (98-107); Creatinine Clr Calc Pharmacy 89.7628; Globulin 3.3 g/dL (1.3-4.6); Glucose 103 mg/dL (65-115); Osmolality Calculated 286 mOsm/kg (285-295); Sodium 137 mmol/L (136-145); Total Bilirubin 0.6 mg/dL (0.15-1.2); Total Protein 7.2 g/dL (6.6-8.7)
[2024-11-01 08:27] LABS: Anion Gap 11.6 (5-19); Potassium 4.6 mmol/L (3.5-5.1)
[2024-11-01] MEDS: dextrose 5% 250 ML 25 ML IV (09:56)
[2024-11-01] MEDS: dexamethasone 4 mg/mL INJ 5 mL 12 MG IVP (09:56)
[2024-11-01] MEDS: palonosetron 0.25 mg/5 mL SDV IVP (10:02)
[2024-11-01] MEDS: famotidine 20 mg/2 mL INJ 40 MG IVP (10:04)
[2024-11-01] MEDS: OXALIPLATIN IV (10:42)
[2024-11-01] MEDS: leucovorin 790 MG in dextrose 5% 250 ML 62.5 MG IV (10:42)
[2024-11-01] MEDS: DEXTROSE 5% IV (10:42)
[2024-11-01] MEDS: FLUOROURACIL IV (12:52)
[2024-11-01] MEDS: ELASTOMERIC PUMP PUMP IV (12:52)
[2024-11-01 13:00] VITALS: BP 141/83; PULSE 66; RESP 17; TEMP 35.7; O2SAT 98
== END 2024-11-13 23:59 | disposition home or self-care (01) ==
PROVIDERS: Nurse Practitioner; Family Provider Internal Medicine Medical Oncology; PCP Family Medicine; Visit Provider Internal Medicine
DX: Z51.11 Encounter for antineoplastic chemotherapy (principal); Z53.9 Procedure and treatment not carried out, unspecified reason; C20 Malignant neoplasm of rectum; C78.7 Secondary malignant neoplasm of liver and intrahepatic bile duct; R91.8 Other nonspecific abnormal finding of lung field; C78.6 Secondary malignant neoplasm of retroperitoneum and peritoneum; Z87.891 Personal history of nicotine dependence; Z95.828 Presence of other vascular implants and grafts; Z79.52 Long term (current) use of systemic steroids
CPT/HCPCS: 80053; 85025; 96368; 96375; 96413; 96415; 96416; 96417; 99213; 99214; J0640; J1100; J2469; J2997; J3490; J7060; J9190; J9263

== ENCOUNTER 2024-12-13 09:30 | Oncology outpatient (recurring) (ONCR) | payer MEDICARE, OTHER, SELFPAY ==
[2024-11-15 07:57] LABS: Basophils % 0.6 %; Eosinophils # 0.2 10^3/uL (0.0-0.8); Eosinophils % 2.7 %; Hematocrit 42.6 % (37-53); Lymphocytes # 0.8 10^3/uL (0.8-4.8); Lymphocytes % 12.8 %; Mean Corpuscular HGB Conc 31.5 g/dL (30-55); Mean Corpuscular Hemoglobin 27.3 pg (27-33); Mean Corpuscular Volume 86.8 fl (82-101); Mean Platelet Volume 9.9 fL (7.4-10.4); Monocytes # 1.1 10^3/uL (0.2-0.9); Monocytes % 17.3 %; Neutrophils # 4.12 10^3/uL (1.8-7.7); Neutrophils % 66.1 %; Nucleated Red Blood Cells % 0 %; Platelet Count 161 10^3/cmm (157-399); Red Blood Count 4.91 10^6/uL (3.85-5.65); Red Cell Distribution Width 20.6 % (12.1-15.1); White Blood Count 6.24 10^3/uL (3.29-11.43)
[2024-11-15 08:31] LABS: Carcinoembryonic Antigen 28.6 ng/mL (0.0-4.7)
[2024-11-15 08:42] LABS: Alanine Aminotransferase 31 U/L (0-41); Albumin Level 3.9 g/dL (3.5-5.2); Alkaline Phosphatase 188 U/L (40-130); Anion Gap 16.3 (5-19); Aspartate Amino Transferase 36 U/L (0-40); Blood Urea Nitrogen 13 mg/dL (8-23); Calcium 8.9 mg/dL (8.5-10.5); Carbon Dioxide 23 mmol/L (22-29); Chloride 104 mmol/L (98-107); Creatinine Clr Calc Pharmacy 91.6373; Glucose 102 mg/dL (65-115); Magnesium 1.7 mg/dL (1.7-2.3); Osmolality Calculated 288 mOsm/kg (285-295); Potassium 4.3 mmol/L (3.5-5.1); Sodium 139 mmol/L (136-145); Total Bilirubin 0.8 mg/dL (0.15-1.2); Total Protein 6.9 g/dL (6.6-8.7)
[2024-11-15] MEDS: dextrose 5% 250 ML 75 ML IV (09:30)
[2024-11-15] MEDS: palonosetron 0.25 mg/5 mL SDV IVP (09:31)
[2024-11-15 09:34] LABS: Lactate Dehydrogenase 558 U/L (135-225)
[2024-11-15] MEDS: dexamethasone 4 mg/mL INJ 5 mL 12 MG IVP (09:38)
[2024-11-15] MEDS: famotidine 20 mg/2 mL INJ 40 MG IVP (09:43)
[2024-11-15] MEDS: DEXTROSE 5% IV (10:24)
[2024-11-15] MEDS: OXALIPLATIN IV (10:24)
[2024-11-15] MEDS: leucovorin 780 MG in dextrose 5% 250 ML 82 MG IV (10:24)
[2024-11-15] MEDS: fluorouraciL 4,700 MG in elastomeric pump 1 PUMP IV (12:28)
[2024-11-15 12:38] VITALS: BP 142/86; PULSE 77; RESP 16; TEMP 36.5; O2SAT 95
[2024-11-29 07:57] LABS: Basophils % 0.4 %; Eosinophils # 0.1 10^3/uL (0.0-0.8); Eosinophils % 3.1 %; Hematocrit 41.6 % (37-53); Lymphocytes # 0.8 10^3/uL (0.8-4.8); Lymphocytes % 18.6 %; Mean Corpuscular HGB Conc 31.5 g/dL (30-55); Mean Corpuscular Hemoglobin 27.7 pg (27-33); Mean Corpuscular Volume 87.9 fl (82-101); Mean Platelet Volume 9.4 fL (7.4-10.4); Monocytes # 0.8 10^3/uL (0.2-0.9); Neutrophils % 60.7 %; Nucleated Red Blood Cells % 0 %; Platelet Count 149 10^3/cmm (157-399); Red Blood Count 4.73 10^6/uL (3.85-5.65); Red Cell Distribution Width 21.4 % (12.1-15.1); White Blood Count 4.46 10^3/uL (3.29-11.43)
[2024-11-29 08:27] LABS: Alanine Aminotransferase 19 U/L (0-41); Albumin Level 3.7 g/dL (3.5-5.2); Alkaline Phosphatase 179 U/L (40-130); Anion Gap 12.8 (5-19); Aspartate Amino Transferase 30 U/L (0-40); Blood Urea Nitrogen 11 mg/dL (8-23); Calcium 8.5 mg/dL (8.5-10.5); Carbon Dioxide 24 mmol/L (22-29); Chloride 105 mmol/L (98-107); Creatinine Clr Calc Pharmacy 91.2027; Globulin 3.1 g/dL (1.3-4.6); Glucose 135 mg/dL (65-115); Magnesium 1.8 mg/dL (1.7-2.3); Osmolality Calculated 287 mOsm/kg (285-295); Potassium 3.8 mmol/L (3.5-5.1); Sodium 138 mmol/L (136-145); Total Bilirubin 0.8 mg/dL (0.15-1.2); Total Protein 6.8 g/dL (6.6-8.7)
[2024-11-29] MEDS: dextrose 5% 250 ML 50 ML IV (09:37)
[2024-11-29] MEDS: famotidine 20 mg/2 mL INJ 40 MG IVP (09:38)
[2024-11-29] MEDS: dexamethasone 4 mg/mL INJ 5 mL 12 MG IVP (09:42)
[2024-11-29] MEDS: palonosetron 0.25 mg/5 mL SDV IVP (09:45)
[2024-11-29] MEDS: leucovorin 790 MG in dextrose 5% 250 ML 62.5 MG IV (10:23)
[2024-11-29] MEDS: OXALIPLATIN IV (10:24)
[2024-11-29] MEDS: DEXTROSE 5% IV (10:24)
[2024-11-29] MEDS: FLUOROURACIL IV (12:34)
[2024-11-29] MEDS: ELASTOMERIC PUMP PUMP IV (12:34)
[2024-11-29 12:42] VITALS: BP 153/89; PULSE 62; RESP 18; TEMP 36.7; O2SAT 98
[2024-12-13 10:13] LABS: Basophils % 0.6 %; Eosinophils # 0.1 10^3/uL (0.0-0.8); Eosinophils % 2.3 %; Hematocrit 41.2 % (37-53); Lymphocytes # 0.8 10^3/uL (0.8-4.8); Lymphocytes % 17.1 %; Mean Corpuscular HGB Conc 31.3 g/dL (30-55); Mean Corpuscular Hemoglobin 27.8 pg (27-33); Mean Corpuscular Volume 88.8 fl (82-101); Mean Platelet Volume 9.2 fL (7.4-10.4); Monocytes % 20.7 %; Neutrophils # 2.84 10^3/uL (1.8-7.7); Neutrophils % 58.7 %; Nucleated Red Blood Cells % 0 %; Platelet Count 144 10^3/cmm (157-399); Red Blood Count 4.64 10^6/uL (3.85-5.65); Red Cell Distribution Width 21.6 % (12.1-15.1); White Blood Count 4.84 10^3/uL (3.29-11.43)
[2024-12-13 10:28] LABS: Alanine Aminotransferase 24 U/L (0-41); Albumin Level 3.5 g/dL (3.5-5.2); Alkaline Phosphatase 198 U/L (40-130); Anion Gap 14.1 (5-19); Aspartate Amino Transferase 35 U/L (0-40); Blood Urea Nitrogen 15 mg/dL (8-23); Calcium 8.7 mg/dL (8.5-10.5); Carbon Dioxide 25 mmol/L (22-29); Chloride 101 mmol/L (98-107); Creatinine Clr Calc Pharmacy 89.8984; Globulin 3.2 g/dL (1.3-4.6); Glucose 138 mg/dL (65-115); Osmolality Calculated 285 mOsm/kg (285-295); Potassium 4.1 mmol/L (3.5-5.1); Sodium 136 mmol/L (136-145); Total Bilirubin 0.8 mg/dL (0.15-1.2); Total Protein 6.7 g/dL (6.6-8.7)
[2024-12-13] MEDS: dextrose 5% 250 ML 50 ML IV (11:52)
[2024-12-13] MEDS: dexamethasone 4 mg/mL INJ 5 mL 12 MG IVP (11:52)
[2024-12-13] MEDS: palonosetron 0.25 mg/5 mL SDV IVP (11:55)
[2024-12-13] MEDS: famotidine 20 mg/2 mL INJ 40 MG IVP (11:57)
[2024-12-13 12:17] LABS: Carcinoembryonic Antigen 39.9 ng/mL (0.0-4.7)
[2024-12-13] MEDS: DEXTROSE 5% IV (12:29)
[2024-12-13] MEDS: leucovorin 790 MG in dextrose 5% 250 ML 62.5 MG IV (12:29)
[2024-12-13] MEDS: OXALIPLATIN IV (12:29)
[2024-12-13] MEDS: FLUOROURACIL IV (15:02)
[2024-12-13] MEDS: ELASTOMERIC PUMP PUMP IV (15:02)
[2024-12-13 15:28] VITALS: BP 154/80; PULSE 84; RESP 18; TEMP 36.6; O2SAT 98
== END 2024-12-14 23:59 | disposition home or self-care (01) ==
PROVIDERS: Nurse Practitioner; Nurse Practitioner Family; PCP Family Medicine; Visit Provider Internal Medicine
DX: Z53.9 Procedure and treatment not carried out, unspecified reason (principal); Z51.11 Encounter for antineoplastic chemotherapy; Z79.899 Other long term (current) drug therapy; Z79.52 Long term (current) use of systemic steroids; C20 Malignant neoplasm of rectum; Z95.828 Presence of other vascular implants and grafts; Z87.891 Personal history of nicotine dependence; G89.3 Neoplasm related pain (acute) (chronic); C78.7 Secondary malignant neoplasm of liver and intrahepatic bile duct; C78.6 Secondary malignant neoplasm of retroperitoneum and peritoneum; Z92.3 Personal history of irradiation
CPT/HCPCS: 80053; 82378; 83615; 83735; 85025; 96375; 96413; 96415; 96416; 96417; 99214; J0640; J1100; J2469; J3490; J7060; J9190; J9263

== ENCOUNTER 2024-12-25 06:03 | Outpatient (CLI) | payer MEDICARE, OTHER, SELFPAY ==
--- NOTE | 2024-12-25 06:00 | NM_ITS ---
WS: [id number] NUCLEAR MEDICINE BONE SCAN Radiopharmaceutical: 25.2 Tc-99m MDP mCi IV Injection site: AC Postinjection imaging delay: 1 hr CLINICAL INFORMATION: malignant neoplasm of rectum COMPARISON: Multiple prior CTs dating back to 2019. Multiple prior PET CTs. FINDINGS: Bone lesions: There are no osseous lesions suspicious for metastatic disease. Tiny amount of low-grade uptake in the sclerotic LEFT iliac wing lesion. This lesion present since 2019 with some increase in size but no evidence of cortical destruction or soft tissue component. 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 Soft tissue contours: Normal. Kidneys: Normal. Other findings: Degenerative type uptake in both AC joints, sternoclavicular joints, and both wrists. NM/NM bone scan whole body* [id number] IMPRESSION: 1. Tiny amount of low-grade uptake involving the sclerotic LEFT iliac lesion w hich has been present since 2019. No cortical destruction or soft tissue compon ent. This most likely represents a nonaggressive lesion such as enchondroma. 2. Otherwise no evidence of osseous metastatic disease.
== END 2024-12-25 06:04 | disposition home or self-care (01) ==
PROVIDERS: PCP Family Medicine; Visit Provider Internal Medicine
DX: C20 Malignant neoplasm of rectum (principal); M89.9 Disorder of bone, unspecified; R93.89 Abnormal findings on diagnostic imaging of other specified body structures
CPT/HCPCS: 78306; A9561

== ENCOUNTER 2024-12-26 11:31 | Outpatient (CLI) | payer MEDICARE, OTHER, SELFPAY ==
[2024-12-26] MEDS: iohexol 350 mg/mL 500 mL Btl (per mL) PO (12:10)
--- NOTE | 2024-12-26 12:30 | CT_ITS ---
WS: [id number] CT CHEST, ABDOMEN AND PELVIS WITH CONTRAST HISTORY: malignant neoplasm of rectum TECHNIQUE: Contiguous 5 mm axial imaging performed through the chest, abdomen and pelvis with IV contrast, oral contrast has been provided. Coronal and sagittal reformats chest. Coronal and sagittal reformats through the abdomen and pelvis. All CT scans at [facility] use at least one of these dose optimization techniques: automated exposure control; mA and/or kV adjustment per patient size (includes targeted exams where dose is matched to clinical indication); or iterative reconstruction. CONTRAST: Omnipaque 350; 100 mL IV. DLP: 718.53 mGy.cm COMPARISON: 10/01/2024, 07/04/2024, Chest CT: Several very small bilateral pulmonary nodules are reidentified. No obvious increase in size of any of these nodules. Mild progression of tree-in-bud airspace disease in the RIGHT upper lobe. No dense consolidation. Benign calcified pulmonary granulomata. Small RIGHT pleural effusion with com pressive atelectasis has slightly increased in size. Normal aorta. Normal pulmonary artery. RIGHT hilar lymph node measures 11 mm with minimal decrease in size since the prior study. Small subcarinal lymph node. No obvious progression of adenopathy. LEFT subclavian Port-A-Cath. LEFT thyroid nodules and enlargement. Abdomen CT: Normal size liver. Reidentified is hepatic metastasis. The largest nodule in the LEFT lobe measures 4.2 x 4.6 cm which is increased in size since 10/01/2024. No new metastatic disease. Metastatic sites in the RIGHT lobe are relatively stable. There is an additional cyst in the RIGHT lobe of the liver. No intrahepatic duct dilatation. Portal vein appears patent. No SMV thrombosis. Gallbladder is contracted with mild wall enhancement. Normal size spleen. Splenic granulomata. No adrenal mass. Negative pancreas. No renal obstruction. Mild perinephric stranding and renal cysts and too small to characterize hypodensities are stable. Mild atherosclerosis aorta. SMA and celiac axis are patent. Stomach is distended with oral contrast. No small bowel obstruction. Diffuse constipation. Increased air in the colon. No obstructive pattern. Diverticular disease in the descending and sigmoid colon with wall thickening. Asymmetric wall thickening involving the rectosigmoid junction with enhancement. Wall thickening measures up to 1.4 cm with luminal narrowing. As compared to 10/01/2024 there is slightly less wall thickening. Mesorectal fat stranding. Presacral soft tissue is similar to the prior study with no progression. Suspect tiny lymph nodes in the mesorectal fat. There is a single lymph node measuring 6 mm at the aortic bifurcation. There are few very tiny retroperitoneal lymph nodes. No mesenteric deposits are identified. Previously described RIGHT upper abdominal nodule is not identified. There is some very mild stranding and omental thickening which has been present on prior studies. Small amount of ascites is decreased since 10/01/2024. Pelvic CT: Normal distention of the urinary bladder. No osteoblastic or osteolytic metastatic sites are identified. There is a mixed lesion in the LEFT ilium which is been previously described on prior studies and negative on PET/CT imaging. Probably an enchondroma. Subtle lytic area in the mid L2 vertebral body was negative on recent bone scan imaging. CT/CT chest abdpel w/*[id number] IMPRESSION: 1. Stable subcentimeter pulmonary nodules. 2. Mild progression of tree-in-bud airspace disease in the RIGHT upper lobe si nce 10/01/2024. Likely endobronchial pneumonia. 3. Small RIGHT pleural effusion has slightly increased in size. 4. No mediastinal or hilar adenopathy increasing in size. Largest lymph node i s at the RIGHT hilum measuring 11 mm which is very minimally decreased in size. 5. Hepatic metastasis. The largest metastatic site in the LEFT lobe is increas ed in size now measuring 4.2 x 4.6 cm. 6. Asymmetric rectosigmoid wall thickening and enhancement consistent with kno wn rectal neoplasm. There is narrowing of the lumen but there is been no progre ssion of tumor and identified by CT. Slight improvement. 7. No pelvic lymphadenopathy identified. There are small mesorectal lymph node s and a 6 mm lymph node at the aortic bifurcation. 8. Reidentified is the mild thickening of the omentum which has been present o n prior studies. Differential would include edema and omental disease. No progr ession. 9. No RIGHT upper abdomen metastatic deposit identified. 10. Small amount of ascites is decreased since 10/01/2024.
[2024-12-26] MEDS: iohexol 350 mg/mL 500 mL Btl (per mL) IV (12:35)
== END 2024-12-26 11:32 | disposition home or self-care (01) ==
PROVIDERS: PCP Family Medicine; Visit Provider Internal Medicine
DX: C20 Malignant neoplasm of rectum (principal); R91.8 Other nonspecific abnormal finding of lung field; J90 Pleural effusion, not elsewhere classified; R59.0 Localized enlarged lymph nodes; C78.7 Secondary malignant neoplasm of liver and intrahepatic bile duct; R93.89 Abnormal findings on diagnostic imaging of other specified body structures; R18.8 Other ascites; J84.10 Pulmonary fibrosis, unspecified; J98.11 Atelectasis; Z96.89 Presence of other specified functional implants; E04.1 Nontoxic single thyroid nodule; E04.9 Nontoxic goiter, unspecified; K76.89 Other specified diseases of liver; R93.3 Abnormal findings on diagnostic imaging of other parts of digestive tract; D73.89 Other diseases of spleen; N28.1 Cyst of kidney, acquired; I70.0 Atherosclerosis of aorta; K59.00 Constipation, unspecified; K57.30 Diverticulosis of large intestine without perforation or abscess without bleeding
CPT/HCPCS: 71260; 74177

== ENCOUNTER 2025-01-10 08:00 | Oncology outpatient (recurring) (ONCR) | payer MEDICARE, OTHER, SELFPAY ==
[2024-12-27 07:45] LABS: Basophils % 0.8 %; Eosinophils # 0.1 10^3/uL (0.0-0.8); Eosinophils % 1.5 %; Hematocrit 41.4 % (37-53); Lymphocytes # 0.7 10^3/uL (0.8-4.8); Lymphocytes % 12.4 %; Mean Corpuscular HGB Conc 31.6 g/dL (30-55); Mean Corpuscular Hemoglobin 27.9 pg (27-33); Mean Corpuscular Volume 88.1 fl (82-101); Mean Platelet Volume 8.9 fL (7.4-10.4); Monocytes # 1.3 10^3/uL (0.2-0.9); Monocytes % 24.2 %; Neutrophils # 3.21 10^3/uL (1.8-7.7); Neutrophils % 60.3 %; Nucleated Red Blood Cells % 0 %; Platelet Count 256 10^3/cmm (157-399); Red Cell Distribution Width 19.4 % (12.1-15.1); White Blood Count 5.32 10^3/uL (3.29-11.43)
[2024-12-27 08:01] LABS: Alanine Aminotransferase 16 U/L (0-41); Albumin Level 3.3 g/dL (3.5-5.2); Alkaline Phosphatase 249 U/L (40-130); Anion Gap 19.1 (5-19); Aspartate Amino Transferase 25 U/L (0-40); Blood Urea Nitrogen 11 mg/dL (8-23); Calcium 8.8 mg/dL (8.5-10.5); Carbon Dioxide 22 mmol/L (22-29); Chloride 96 mmol/L (98-107); Creatinine Clr Calc Pharmacy 91.4197; Globulin 3.9 g/dL (1.3-4.6); Glucose 168 mg/dL (65-115); Osmolality Calculated 279 mOsm/kg (285-295); Potassium 4.1 mmol/L (3.5-5.1); Sodium 133 mmol/L (136-145); Total Bilirubin 0.8 mg/dL (0.15-1.2); Total Protein 7.2 g/dL (6.6-8.7)
[2024-12-27] MEDS: dextrose 5% 250 ML 50 ML IV (08:56)
[2024-12-27] MEDS: famotidine 20 mg/2 mL INJ 40 MG IVP (08:57)
[2024-12-27] MEDS: dexamethasone 4 mg/mL INJ 5 mL 12 MG IVP (09:01)
[2024-12-27] MEDS: palonosetron 0.25 mg/5 mL SDV IVP (09:03)
[2024-12-27] MEDS: DEXTROSE 5% IV (09:43)
[2024-12-27] MEDS: leucovorin 790 MG in dextrose 5% 250 ML 62.5 MG IV (09:43)
[2024-12-27] MEDS: OXALIPLATIN IV (09:43)
[2024-12-27] MEDS: FLUOROURACIL IV (12:03)
[2024-12-27] MEDS: ELASTOMERIC PUMP PUMP IV (12:03)
[2024-12-27 13:18] VITALS: BP 134/84; PULSE 61; O2SAT 99
[2025-01-10 08:12] LABS: Basophils % 0.2 %; Eosinophils # 0.1 10^3/uL (0.0-0.8); Eosinophils % 1.1 %; Lymphocytes # 0.9 10^3/uL (0.8-4.8); Lymphocytes % 11.2 %; Mean Corpuscular HGB Conc 32.1 g/dL (30-55); Mean Corpuscular Hemoglobin 27.8 pg (27-33); Mean Corpuscular Volume 86.5 fl (82-101); Mean Platelet Volume 8.5 fL (7.4-10.4); Monocytes # 1.3 10^3/uL (0.2-0.9); Neutrophils # 5.58 10^3/uL (1.8-7.7); Nucleated Red Blood Cells % 0 %; Platelet Count 218 10^3/cmm (157-399); Red Blood Count 4.97 10^6/uL (3.85-5.65); Red Cell Distribution Width 19.4 % (12.1-15.1)
[2025-01-10 08:30] LABS: Alanine Aminotransferase 23 U/L (0-41); Albumin Level 3.2 g/dL (3.5-5.2); Alkaline Phosphatase 237 U/L (40-130); Anion Gap 14.9 (5-19); Aspartate Amino Transferase 24 U/L (0-40); Blood Urea Nitrogen 18 mg/dL (8-23); Calcium 8.7 mg/dL (8.5-10.5); Carbon Dioxide 26 mmol/L (22-29); Chloride 99 mmol/L (98-107); Creatinine Clr Calc Pharmacy 89.9664; Globulin 4.4 g/dL (1.3-4.6); Glucose 148 mg/dL (65-115); Osmolality Calculated 287 mOsm/kg (285-295); Potassium 3.9 mmol/L (3.5-5.1); Sodium 136 mmol/L (136-145); Total Bilirubin 0.6 mg/dL (0.15-1.2); Total Protein 7.6 g/dL (6.6-8.7)
[2025-01-10] MEDS: sodium chloride 0.9% 500 ML IV (10:21)
[2025-01-10] MEDS: famotidine 20 mg/2 mL INJ 40 MG IVP (10:50)
[2025-01-10] MEDS: dexamethasone 4 mg/mL INJ 5 mL 12 MG IVP (10:53)
[2025-01-10] MEDS: palonosetron 0.25 mg/5 mL SDV IVP (10:56)
[2025-01-10] MEDS: leucovorin 790 MG in dextrose 5% 250 ML 62.5 MG IV (12:06)
[2025-01-10] MEDS: OXALIPLATIN IV (12:06)
[2025-01-10] MEDS: DEXTROSE 5% IV (12:06)
[2025-01-10 12:08] LABS: Carcinoembryonic Antigen 36.8 ng/mL (0.0-4.7)
[2025-01-10] MEDS: ELASTOMERIC PUMP PUMP IV (14:30)
[2025-01-10] MEDS: FLUOROURACIL IV (14:30)
[2025-01-10 14:45] VITALS: BP 136/89; PULSE 86; RESP 17; TEMP 36.1; O2SAT 95
== END 2025-01-11 23:59 | disposition home or self-care (01) ==
PROVIDERS: Nurse Practitioner Family; PCP Family Medicine; Visit Provider Internal Medicine
DX: Z53.9 Procedure and treatment not carried out, unspecified reason; Z51.11 Encounter for antineoplastic chemotherapy; C20 Malignant neoplasm of rectum; C78.7 Secondary malignant neoplasm of liver and intrahepatic bile duct; C77.1 Secondary and unspecified malignant neoplasm of intrathoracic lymph nodes; C78.6 Secondary malignant neoplasm of retroperitoneum and peritoneum; R53.0 Neoplastic (malignant) related fatigue; Z79.630 Long term (current) use of alkylating agent; Z79.52 Long term (current) use of systemic steroids; Z79.899 Other long term (current) drug therapy; Z87.891 Personal history of nicotine dependence; Z79.891 Long term (current) use of opiate analgesic; Z92.3 Personal history of irradiation
CPT/HCPCS: 80053; 82378; 85025; 96365; 96366; 96367; 96368; 96375; 96413; 96415; 96416; 96523; 99213; 99214; J0640; J1100; J2469; J3490; J7040; J7060; J9190; J9263

== ENCOUNTER 2025-01-24 07:52 | Oncology outpatient (recurring) (ONCR) | payer MEDICARE, OTHER, SELFPAY ==
[2025-01-24 08:54] LABS: Basophils % 0.3 %; Eosinophils # 0.1 10^3/uL (0.0-0.8); Eosinophils % 1.7 %; Hematocrit 39.2 % (37-53); Lymphocytes # 0.6 10^3/uL (0.8-4.8); Lymphocytes % 10.6 %; Mean Corpuscular HGB Conc 31.9 g/dL (30-55); Mean Corpuscular Hemoglobin 27.7 pg (27-33); Mean Corpuscular Volume 86.7 fl (82-101); Mean Platelet Volume 9.7 fL (7.4-10.4); Monocytes % 15.9 %; Neutrophils % 70.5 %; Nucleated Red Blood Cells % 0 %; Platelet Count 204 10^3/cmm (157-399); Red Blood Count 4.52 10^6/uL (3.85-5.65); Red Cell Distribution Width 17.8 % (12.1-15.1); White Blood Count 5.96 10^3/uL (3.29-11.43)
[2025-01-24 09:05] LABS: Alanine Aminotransferase 17 U/L (0-41); Albumin Level 3.2 g/dL (3.5-5.2); Alkaline Phosphatase 271 U/L (40-130); Anion Gap 15.1 (5-19); Aspartate Amino Transferase 29 U/L (0-40); Blood Urea Nitrogen 16 mg/dL (8-23); Calcium 8.8 mg/dL (8.5-10.5); Carbon Dioxide 24 mmol/L (22-29); Chloride 98 mmol/L (98-107); Globulin 4.6 g/dL (1.3-4.6); Glucose 130 mg/dL (65-115); Osmolality Calculated 279 mOsm/kg (285-295); Potassium 4.1 mmol/L (3.5-5.1); Sodium 133 mmol/L (136-145); Total Bilirubin 0.6 mg/dL (0.15-1.2); Total Protein 7.8 g/dL (6.6-8.7)
[2025-01-24] MEDS: dextrose 5% 250 ML 75 ML IV (09:58)
[2025-01-24] MEDS: famotidine 20 mg/2 mL INJ 40 MG IVP (09:59)
[2025-01-24] MEDS: palonosetron 0.25 mg/5 mL SDV IVP (09:59)
[2025-01-24] MEDS: dexamethasone 4 mg/mL INJ 5 mL 12 MG IVP (10:00)
[2025-01-24 10:31] LABS: Carcinoembryonic Antigen 48.4 ng/mL (0.0-4.7)
[2025-01-24] MEDS: DEXTROSE 5% IV (10:35)
[2025-01-24] MEDS: leucovorin 790 MG in dextrose 5% 250 ML 62.5 MG IV (10:35)
[2025-01-24] MEDS: OXALIPLATIN IV (10:35)
[2025-01-24] MEDS: ELASTOMERIC PUMP PUMP IV (12:56)
[2025-01-24] MEDS: FLUOROURACIL IV (12:56)
[2025-01-24 13:32] VITALS: BP 143/95; PULSE 78; RESP 18; TEMP 37; O2SAT 94
== END 2025-02-11 23:59 | disposition home or self-care (01) ==
PROVIDERS: Nurse Practitioner Family; PCP Family Medicine; Visit Provider Internal Medicine
DX: Z51.11 Encounter for antineoplastic chemotherapy (principal); C78.7 Secondary malignant neoplasm of liver and intrahepatic bile duct; C78.6 Secondary malignant neoplasm of retroperitoneum and peritoneum; C20 Malignant neoplasm of rectum; Z79.631 Long term (current) use of antimetabolite agent; Z79.52 Long term (current) use of systemic steroids; Z79.899 Other long term (current) drug therapy; Z95.828 Presence of other vascular implants and grafts; Z87.891 Personal history of nicotine dependence; Z92.3 Personal history of irradiation; Z79.01 Long term (current) use of anticoagulants; K13.79 Other lesions of oral mucosa
CPT/HCPCS: 80053; 82378; 85025; 96413; 96415; 96417; 99213; J0640; J1100; J2469; J3490; J7060; J9190; J9263

== ENCOUNTER 2025-02-28 09:00 | Oncology outpatient (recurring) (ONCR) | payer MEDICARE, OTHER, SELFPAY ==
[2025-02-14 08:53] LABS: Reticulocyte % 1.5 % (0.5-2.0)
[2025-02-14 08:54] LABS: Basophils # 0.1 10^3/uL (0.0-0.1); Basophils % 1.1 %; Eosinophils # 0.1 10^3/uL (0.0-0.8); Eosinophils % 2.5 %; Hematocrit 37.5 % (37-53); Lymphocytes # 0.7 10^3/uL (0.8-4.8); Lymphocytes % 15.9 %; Mean Corpuscular HGB Conc 30.9 g/dL (30-55); Mean Corpuscular Hemoglobin 27.7 pg (27-33); Mean Corpuscular Volume 89.5 fl (82-101); Mean Platelet Volume 8.8 fL (7.4-10.4); Monocytes # 1.5 10^3/uL (0.2-0.9); Monocytes % 33.6 %; Neutrophils # 1.98 10^3/uL (1.8-7.7); Neutrophils % 44.9 %; Nucleated Red Blood Cells % 0 %; Platelet Count 215 10^3/cmm (157-399); Red Blood Count 4.19 10^6/uL (3.85-5.65); Red Cell Distribution Width 18.9 % (12.1-15.1); White Blood Count 4.41 10^3/uL (3.29-11.43)
[2025-02-14 09:14] LABS: Alanine Aminotransferase 15 U/L (0-41); Albumin Level 3.4 g/dL (3.5-5.2); Alkaline Phosphatase 225 U/L (40-130); Anion Gap 12.5 (5-19); Aspartate Amino Transferase 29 U/L (0-40); Blood Urea Nitrogen 13 mg/dL (8-23); Calcium 8.6 mg/dL (8.5-10.5); Carbon Dioxide 26 mmol/L (22-29); Chloride 102 mmol/L (98-107); Ferritin 797 ng/mL (30-400); Globulin 3.8 g/dL (1.3-4.6); Glucose 109 mg/dL (65-115); Iron 26 ug/dL (59-158); Lactate Dehydrogenase 558 U/L (135-225); Osmolality Calculated 283 mOsm/kg (285-295); Percent Saturation 13.5 % (20-50); Potassium 4.5 mmol/L (3.5-5.1); Sodium 136 mmol/L (136-145); Total Bilirubin 0.7 mg/dL (0.15-1.2); Total Iron Binding Capacity 192 mcg/dl; Total Protein 7.2 g/dL (6.6-8.7); Unsaturated Iron Binding 166 ug/dL (112-347)
[2025-02-14 09:40] LABS: Folate Level 14.8 ng/mL (4.5-32.2)
[2025-02-14 10:14] LABS: Carcinoembryonic Antigen 81.4 ng/mL (0.0-4.7)
[2025-02-14 10:19] LABS: Vitamin B12 > 2000 pg/mL (232-1245)
[2025-02-14] MEDS: dextrose 5% 250 ML 75 ML IV (11:27)
[2025-02-14] MEDS: dexamethasone 4 mg/mL INJ 5 mL 12 MG IVP (11:35)
[2025-02-14] MEDS: palonosetron 0.25 mg/5 mL SDV IVP (11:35)
[2025-02-14] MEDS: famotidine 20 mg/2 mL INJ 40 MG IVP (11:38)
[2025-02-14] MEDS: OXALIPLATIN IV (11:54)
[2025-02-14] MEDS: DEXTROSE 5% IV (11:54)
[2025-02-14] MEDS: leucovorin 770 MG in dextrose 5% 250 ML 62.5 MG IV (11:56)
[2025-02-14] MEDS: fluorouraciL 4,600 MG in elastomeric pump 1 PUMP IV (14:08)
[2025-02-14 14:10] VITALS: BP 164/78; PULSE 74; RESP 18; TEMP 36.4; O2SAT 94
[2025-02-28 09:22] LABS: Basophils % 0.6 %; Eosinophils # 0.2 10^3/uL (0.0-0.8); Hematocrit 38.7 % (37-53); Lymphocytes # 0.8 10^3/uL (0.8-4.8); Lymphocytes % 11.8 %; Mean Corpuscular HGB Conc 31.3 g/dL (30-55); Mean Corpuscular Hemoglobin 27.6 pg (27-33); Mean Corpuscular Volume 88.2 fl (82-101); Mean Platelet Volume 9.1 fL (7.4-10.4); Monocytes # 0.9 10^3/uL (0.2-0.9); Monocytes % 13.3 %; Neutrophils # 4.73 10^3/uL (1.8-7.7); Neutrophils % 70.7 %; Nucleated Red Blood Cells % 0 %; Platelet Count 224 10^3/cmm (157-399); Red Blood Count 4.39 10^6/uL (3.85-5.65); Red Cell Distribution Width 19.1 % (12.1-15.1); White Blood Count 6.69 10^3/uL (3.29-11.43)
[2025-02-28 09:41] LABS: Alanine Aminotransferase 13 U/L (0-41); Albumin Level 3.6 g/dL (3.5-5.2); Alkaline Phosphatase 260 U/L (40-130); Anion Gap 16.9 (5-19); Aspartate Amino Transferase 27 U/L (0-40); Blood Urea Nitrogen 15 mg/dL (8-23); Carbon Dioxide 23 mmol/L (22-29); Chloride 103 mmol/L (98-107); Creatinine Clr Calc Pharmacy 89.7355; Globulin 4.3 g/dL (1.3-4.6); Glucose 128 mg/dL (65-115); Osmolality Calculated 290 mOsm/kg (285-295); Potassium 3.9 mmol/L (3.5-5.1); Sodium 139 mmol/L (136-145); Total Bilirubin 1.1 mg/dL (0.15-1.2); Total Protein 7.9 g/dL (6.6-8.7)
[2025-02-28] MEDS: dextrose 5% 250 ML 75 ML IV (11:07)
[2025-02-28] MEDS: famotidine 20 mg/2 mL INJ 40 MG IVP (11:08)
[2025-02-28] MEDS: dexamethasone 4 mg/mL INJ 5 mL 12 MG IVP (11:13)
[2025-02-28] MEDS: palonosetron 0.25 mg/5 mL SDV IVP (11:15)
[2025-02-28] MEDS: DEXTROSE 5% IV (11:35)
[2025-02-28] MEDS: OXALIPLATIN IV (11:35)
[2025-02-28] MEDS: leucovorin 790 MG in dextrose 5% 250 ML 62.5 MG IV (11:36)
[2025-02-28] MEDS: ELASTOMERIC PUMP PUMP IV (13:50)
[2025-02-28] MEDS: FLUOROURACIL IV (13:50)
[2025-02-28 14:17] LABS: Bilirubin Urine Negative (Negative); Blood Urine Negative (Negative); Glucose Urine UA Negative (Normal); Ketones Urine Negative (Negative); Leukocyte Esterase Urine Trace (Negative); Nitrate Urine Negative (Negative); Protein Urine Negative (Negative); Specific Gravity, Urine 1.019 (1.005-1.030); Urine Appearance Clear (CLEAR); Urine Color Yellow (Yellow); pH Urine 6.5 (5-7)
[2025-02-28 14:19] LABS: Add Urine Microscopic? YES; Bacteria Urine None Seen /hpf; RBC Urine 0-2 /hpf (0-2); Squamous Epithelial Cell Urine 0-5 /hpf (0-5); WBC Urine 0-5 /hpf (0-5)
[2025-02-28 15:25] VITALS: BP 136/97; PULSE 78; TEMP 36.7
== END 2025-03-13 23:59 | disposition home or self-care (01) ==
PROVIDERS: Nurse Practitioner Family; PCP Family Medicine; Visit Provider Internal Medicine
DX: Z53.9 Procedure and treatment not carried out, unspecified reason; Z51.11 Encounter for antineoplastic chemotherapy; C20 Malignant neoplasm of rectum; C78.7 Secondary malignant neoplasm of liver and intrahepatic bile duct; R30.0 Dysuria; Z79.52 Long term (current) use of systemic steroids; Z95.828 Presence of other vascular implants and grafts; Z87.891 Personal history of nicotine dependence; Z79.891 Long term (current) use of opiate analgesic
CPT/HCPCS: 80053; 81001; 82378; 82607; 82728; 82746; 83010; 83540; 83550; 83615; 85025; 85045; 96368; 96375; 96413; 96415; 96416; 96417; 99214; J0640; J1100; J2469; J3490; J7060; J9190; J9263

== ENCOUNTER 2025-04-11 08:30 | Oncology outpatient (recurring) (ONCR) | payer MEDICARE, OTHER, SELFPAY ==
[2025-03-14 09:29] LABS: Basophils % 0.8 %; Eosinophils # 0.2 10^3/uL (0.0-0.8); Eosinophils % 3.1 %; Hematocrit 35.5 % (37-53); Lymphocytes # 0.6 10^3/uL (0.8-4.8); Lymphocytes % 11.7 %; Mean Corpuscular HGB Conc 31.3 g/dL (30-55); Mean Corpuscular Hemoglobin 27.5 pg (27-33); Mean Corpuscular Volume 88.1 fl (82-101); Mean Platelet Volume 9.3 fL (7.4-10.4); Monocytes # 0.9 10^3/uL (0.2-0.9); Monocytes % 16.7 %; Neutrophils # 3.46 10^3/uL (1.8-7.7); Neutrophils % 67.3 %; Nucleated Red Blood Cells % 0 %; Platelet Count 182 10^3/cmm (157-399); Red Blood Count 4.03 10^6/uL (3.85-5.65); Red Cell Distribution Width 19.3 % (12.1-15.1); White Blood Count 5.14 10^3/uL (3.29-11.43)
[2025-03-14 09:47] LABS: Carcinoembryonic Antigen 134.1 ng/mL (0.0-4.7)
[2025-03-14 09:58] LABS: Alanine Aminotransferase 11 U/L (0-41); Albumin Level 3.5 g/dL (3.5-5.2); Alkaline Phosphatase 232 U/L (40-130); Anion Gap 15.8 (5-19); Aspartate Amino Transferase 27 U/L (0-40); Blood Urea Nitrogen 14 mg/dL (8-23); Calcium 8.7 mg/dL (8.5-10.5); Carbon Dioxide 25 mmol/L (22-29); Chloride 102 mmol/L (98-107); Glucose 138 mg/dL (65-115); Osmolality Calculated 291 mOsm/kg (285-295); Potassium 3.8 mmol/L (3.5-5.1); Sodium 139 mmol/L (136-145); Total Protein 7.5 g/dL (6.6-8.7)
[2025-03-14] MEDS: famotidine 20 mg/2 mL INJ 40 MG IVP (11:50)
[2025-03-14] MEDS: dextrose 5% 250 ML 25 ML IV (11:50)
[2025-03-14] MEDS: dexamethasone 4 mg/mL INJ 5 mL 12 MG IVP (11:53)
[2025-03-14] MEDS: palonosetron 0.25 mg/5 mL SDV IVP (11:54)
[2025-03-14] MEDS: OXALIPLATIN IV (12:38)
[2025-03-14] MEDS: DEXTROSE 5% IV (12:38)
[2025-03-14] MEDS: leucovorin 780 MG in dextrose 5% 250 ML 145 MG IV (12:39)
[2025-03-14] MEDS: fluorouraciL 4,650 MG in elastomeric pump 1 PUMP IV (14:54)
[2025-03-14 15:05] VITALS: BP 157/85; PULSE 76; RESP 17; TEMP 36.9; O2SAT 96
[2025-03-28 08:55] LABS: Basophils % 0.6 %; Eosinophils # 0.1 10^3/uL (0.0-0.8); Eosinophils % 1.1 %; Hematocrit 34.3 % (37-53); Lymphocytes # 0.5 10^3/uL (0.8-4.8); Lymphocytes % 7.1 %; Mean Corpuscular HGB Conc 31.5 g/dL (30-55); Mean Corpuscular Hemoglobin 27.5 pg (27-33); Mean Corpuscular Volume 87.3 fl (82-101); Mean Platelet Volume 9.2 fL (7.4-10.4); Monocytes # 1.2 10^3/uL (0.2-0.9); Neutrophils # 4.64 10^3/uL (1.8-7.7); Neutrophils % 71.4 %; Nucleated Red Blood Cells % 0 %; Platelet Count 205 10^3/cmm (157-399); Red Blood Count 3.93 10^6/uL (3.85-5.65); Red Cell Distribution Width 19.5 % (12.1-15.1); White Blood Count 6.49 10^3/uL (3.29-11.43)
[2025-03-28 09:17] LABS: Alanine Aminotransferase 10 U/L (0-41); Albumin Level 3.3 g/dL (3.5-5.2); Alkaline Phosphatase 251 U/L (40-130); Aspartate Amino Transferase 24 U/L (0-40); Blood Urea Nitrogen 15 mg/dL (8-23); Calcium 8.8 mg/dL (8.5-10.5); Carbon Dioxide 23 mmol/L (22-29); Chloride 99 mmol/L (98-107); Globulin 3.8 g/dL (1.3-4.6); Glucose 143 mg/dL (65-115); Osmolality Calculated 283 mOsm/kg (285-295); Sodium 135 mmol/L (136-145); Total Bilirubin 1.2 mg/dL (0.15-1.2); Total Protein 7.1 g/dL (6.6-8.7)
[2025-03-28] MEDS: palonosetron 0.25 mg/5 mL SDV IVP (09:44)
[2025-03-28] MEDS: famotidine 20 mg/2 mL INJ 40 MG IVP (09:45)
[2025-03-28] MEDS: dextrose 5% 250 ML 75 ML IV (09:45)
[2025-03-28] MEDS: dexamethasone 4 mg/mL INJ 5 mL 12 MG IVP (09:46)
[2025-03-28] MEDS: leucovorin 770 MG in dextrose 5% 250 ML 62.5 MG IV (10:23)
[2025-03-28] MEDS: OXALIPLATIN IV (10:23)
[2025-03-28] MEDS: DEXTROSE 5% IV (10:23)
[2025-03-28] MEDS: fluorouraciL 4,650 MG in elastomeric pump 1 PUMP IV (12:34)
[2025-03-28 12:48] VITALS: BP 119/72; PULSE 84; RESP 18; TEMP 36.4; O2SAT 96
[2025-04-05] MEDS: iohexol 350 mg/mL 500 mL Btl (per mL) PO (09:20)
--- NOTE | 2025-04-05 09:30 | CTR_ITS ---
PROCEDURE INFORMATION: Exam: CT Chest With Contrast; Diagnostic Exam date and time: 04/05/2025 10:13 AM Age: 69 years old Clinical indication: Condition or disease; Other: Rectal cancer; Prior surgery; Surgery date: 6+ months; Surgery type: Port placed left side; Additional info: Rectal cancer; Compare to previous TECHNIQUE: Imaging protocol: Diagnostic computed tomography of the chest with contrast. Radiation optimization: All CT scans at this facility use at least one of these dose optimization techniques: automated exposure control; mA and/or kV adjustment per patient size (includes targeted exams where dose is matched to clinical indication); or iterative reconstruction. Contrast material: OMNI 350; Contrast volume: 100 ml; Contrast route: INTRAVENOUS (IV); COMPARISON: CT chest abdpel w/*[id number] 12/26/2024 12:26 PM RADIATION DOSE METRICS: Total DLP (mGy-cm): 645.65 FINDINGS: Tubes, catheters and devices: Unchanged left chest port. Thyroid: Unchanged thyroid nodules. Lungs: A few small solid noncalcified pulmonary nodules bilaterally. Some appear to be increasing in size. For example a 7 mm left upper lobe nodule image 22 axial series 3 was previously 5 mm, and a 4 mm right upper lobe nodule image 23 was previously 3 mm. A small amount of atelectasis and/or pneumonitis in the dependent right lower lobe is not obviously changed. Additional small areas of pulmonary scarring are not significantly changed. Pleural spaces: Decreased small right pleural effusion. No left pleural effusion. No pneumothorax. Heart: Unremarkable. No cardiomegaly. No pericardial effusion. Coronary arteries: Unchanged small amount of coronary artery calcification. Lymph nodes: New mild subcarinal lymphadenopathy. No other thoracic lymphadenopathy. Vasculature: Unremarkable. No aortic aneurysm. Bones/joints: Unchanged mild multilevel spondylosis and partial spinal ankylosis. Otherwise, unremarkable. Soft tissues: Otherwise, unremarkable visualized body wall. Otherwise, unremarkable soft tissues. PROCEDURE INFORMATION: Exam: CT Abdomen And Pelvis With Contrast Exam date and time: 04/05/2025 10:13 AM Age: 69 years old Clinical indication: Condition or disease; Other: Rectal cancer; Prior surgery; Surgery date: 6+ months; Surgery type: Port placed left side; Additional info: Rectal cancer; Compare to previous TECHNIQUE: Imaging protocol: Computed tomography of the abdomen and pelvis with contrast. Radiation optimization: All CT scans at this facility use at least one of these dose optimization techniques: automated exposure control; mA and/or kV adjustment per patient size (includes targeted exams where dose is matched to clinical indication); or iterative reconstruction. Contrast material: OMNI 350; Contrast volume: 100 ml; Contrast route: INTRAVENOUS (IV); COMPARISON: CT chest abdpel w/*[id number] 12/26/2024 12:26 PM RADIATION DOSE METRICS: Total DLP (mGy-cm): 645.65 FINDINGS: Lungs: See above report. Liver: Multiple hepatic metastases have increased in size and number. The largest in the dome measuring 6.7 cm AP x 6.1 cm transversely by 6 cm craniocaudal was previously 4.8 cm by 5.1 cm x 4 cm. Unchanged cyst inferior liver. Otherwise, unremarkable. Gallbladder and biliary ducts: Unchanged diffuse gallbladder wall thickening and small amount of pericholecystic fluid. Unremarkable bile ducts. Pancreas: Normal. No ductal dilation. Spleen: Slightly increased moderate splenomegaly. Otherwise, unremarkable spleen. Adrenal glands: Normal. No mass. Kidneys and ureters: Unchanged a few tiny nonobstructing bilateral renal calculi. A few unchanged renal cysts need no follow-up. Stomach and bowel: The rectosigmoid/rectal cancer is again identified, and may be newly extending proximally into the mid sigmoid colon. Again noted are multiple diverticula from the colon. No convincing evidence of diverticulitis. Stool burden suggests constipation. Otherwise, unremarkable. Appendix: The appendix is not clearly identified. Intraperitoneal space: Tiny amounts of free intraperitoneal fluid are increased. Presacral fluid is not obviously changed. No free air. Vasculature: Findings of portal hypertension including varices are again noted. Unchanged small amount of arterial plaque. Otherwise, unremarkable. Lymph nodes: Unremarkable. No enlarged lymph nodes. Urinary bladder: Unremarkable. Reproductive: Unremarkable. Bones/joints: Unchanged lumbar spondylosis. Otherwise, unremarkable. Soft tissues: Unremarkable visualized body wall. Otherwise, unremarkable soft tissues. CT/CT chest abdpel w/*[id number] IMPRESSION: 1. A few small solid noncalcified pulmonary nodules bilaterally. Some appear to be increasing in size. For example a 7 mm left upper lobe nodule image 22 axial series 3 was previously 5 mm, and a 4 mm right upper lobe nodule image 23 was previously 3 mm. These are suspicious for metastatic disease. 2. New mild subcarinal lymphadenopathy. Suspected to be metastatic. 3. Decreased small right pleural effusion. 4. A small amount of atelectasis and/or pneumonitis in the dependent right lower lobe is not obviously changed. 5. Unchanged thyroid nodules. Please correlate with ultrasound. 6. Additional details as above. IMPRESSION: 1. The rectosigmoid/rectal cancer is again identified, and may be newly extending proximally into the mid sigmoid colon. Consider colonoscopy to evaluate this further. 2. Multiple hepatic metastases have increased in size and number. The largest in the dome measuring 6.7 cm AP x 6.1 cm transversely by 6 cm craniocaudal was previously 4.8 cm by 5.1 cm x 4 cm. 3. Unchanged diffuse gallbladder wall thickening and small amount of pericholecystic fluid. 4. Slightly increased moderate splenomegaly. 5. Tiny amounts of free intraperitoneal fluid are increased. 6. Additional details as above. Unchanged.
[2025-04-05] MEDS: iohexol 350 mg/mL 500 mL Btl (per mL) IV (10:16)
[2025-04-11 08:43] LABS: Basophils # 0.1 10^3/uL (0.0-0.1); Basophils % 0.7 %; Eosinophils # 0.1 10^3/uL (0.0-0.8); Eosinophils % 1.6 %; Hematocrit 35.3 % (37-53); Lymphocytes # 0.6 10^3/uL (0.8-4.8); Lymphocytes % 8.2 %; Mean Corpuscular HGB Conc 30.9 g/dL (30-55); Mean Corpuscular Hemoglobin 26.9 pg (27-33); Mean Corpuscular Volume 87.2 fl (82-101); Mean Platelet Volume 8.6 fL (7.4-10.4); Monocytes # 1.1 10^3/uL (0.2-0.9); Monocytes % 16.8 %; Neutrophils # 4.86 10^3/uL (1.8-7.7); Neutrophils % 72.3 %; Nucleated Red Blood Cells % 0 %; Platelet Count 193 10^3/cmm (157-399); Red Blood Count 4.05 10^6/uL (3.85-5.65); White Blood Count 6.73 10^3/uL (3.29-11.43)
[2025-04-11 09:15] LABS: Carcinoembryonic Antigen 140.3 ng/mL (0.0-4.7)
[2025-04-11 09:26] LABS: Alanine Aminotransferase 11 U/L (0-41); Albumin Level 3.5 g/dL (3.5-5.2); Alkaline Phosphatase 330 U/L (40-130); Aspartate Amino Transferase 29 U/L (0-40); Blood Urea Nitrogen 14 mg/dL (8-23); Carbon Dioxide 24 mmol/L (22-29); Chloride 99 mmol/L (98-107); Creatinine Clr Calc Pharmacy 89.4638; Globulin 4.1 g/dL (1.3-4.6); Glucose 128 mg/dL (65-115); Osmolality Calculated 282 mOsm/kg (285-295); Sodium 135 mmol/L (136-145); Total Bilirubin 0.9 mg/dL (0.15-1.2); Total Protein 7.6 g/dL (6.6-8.7)
== END 2025-04-13 23:59 | disposition home or self-care (01) ==
PROVIDERS: Internal Medicine Medical Oncology; Nurse Practitioner Family; PCP Family Medicine; Visit Provider Internal Medicine
DX: Z53.9 Procedure and treatment not carried out, unspecified reason; C78.6 Secondary malignant neoplasm of retroperitoneum and peritoneum; C78.7 Secondary malignant neoplasm of liver and intrahepatic bile duct; Z85.048 Personal history of other malignant neoplasm of rectum, rectosigmoid junction, and anus; E04.1 Nontoxic single thyroid nodule; R91.8 Other nonspecific abnormal finding of lung field; Z87.891 Personal history of nicotine dependence; Z79.899 Other long term (current) drug therapy; Z92.3 Personal history of irradiation
CPT/HCPCS: 36415; 71260; 74177; 80053; 82378; 85025; 96368; 96375; 96413; 96415; 96416; 96417; 99214; J0640; J1100; J2469; J3490; J7060; J9190; J9263

== ENCOUNTER 2025-04-14 12:24 | Emergency (ER) | payer MEDICARE, OTHER, SELFPAY ==
[2025-04-14] VITALS (7 sets, daily range): BP systolic 153–160; BP diastolic 77–95; PULSE 76–83; RESP 16–18; TEMP 36.8; O2SAT 95–98; BMI 20.9
--- NOTE | 2025-04-14 12:41 | XRR_ITS ---
PROCEDURE INFORMATION: Exam: XR Abdomen Exam date and time: 04/14/2025 1:23 PM Age: 69 years old Clinical indication: Abdominal pain/distention; Constipation TECHNIQUE: Imaging protocol: Radiologic exam of the abdomen. Views: 2 Views. Upright and supine views. COMPARISON: CT chest abdpel w/*[id number] 12/26/2024 12:26 PM FINDINGS: Tubes, catheters and devices: Left port catheter tip is in the upper superior vena cava. Lungs: Lungs appear free of acute disease. Pleural spaces: Focal thickening or scarring in the minor fissure. Gastrointestinal tract: Normal. No bowel dilation. Intraperitoneal space: Normal. No free air. Bones/joints: Unremarkable for age. XR/XR acute abdomen series [id number] IMPRESSION: Nonacute findings.
[2025-04-14] MEDS: ondansetron hcl ODT 4 mg Tab PO (13:39)
[2025-04-14] MEDS: morphine 4 mg/mL SDV 1 mL 10 MG IM (13:40)
[2025-04-14] MEDS: morphine 4 mg/mL SDV 1 mL IM (14:25)
--- NOTE | 2025-04-14 14:25 | W.ED.BACK ---
HPI - Back Pain/Injury General: Chief Complaint: Back Pain/Injury Stated Complaint: BACK PAIN Time Seen by Provider: 04/14/25 12:25 History of Present Illness: This patient is a 69-year-old white male who presents to the emergency department complaining of abdominal pain and left-sided back pain. Patient states he tried ibuprofen without any relief. He is also on 10 mg hydrocodone tablets. 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 Just had a repeat CT scan a couple of days ago to look for progression. I did repeat oncology notes from his last visit. Patient does not want chemotherapy at this time. He states it is making him too ill. Evidently [facility] is reviewing his case at this time and awaiting their recommendations. Patient did have diarrhea but his oncologist had placed him on diphenoxylate 5 mg 4 times daily 2 to 3 weeks ago. Patient also drinks a gallon of milk every 2 to 3 days and as stated above is on the hydrocodone. Now he has developed severe constipation has not had a bowel movement for several days. Associated symptoms: Reports abdominal pain Related Data Previous Rx's ?Medication ?Instructions ?Recorded ondansetron HCl 4 mg tablet 4 mg PO Q6H PRN nausea and 10/03/24 vomiting #30 tabs prochlorperazine maleate 10 mg 10 mg PO Q4H PRN mild nausea #30 10/03/24 tablet (Compazine) tabs omeprazole 20 mg capsule,delayed 20 mg PO DAILY PRN Heartburn #60 12/13/24 release caps hydrocodone 10 mg-acetaminophen 1 tab PO Q4H PRN pain 30 days #180 03/14/25 325 mg tablet tabs diphenoxylate-atropine 2.5 2 tab PO QID PRN diarrhea #60 tabs 04/11/25 mg-0.025 mg tablet (Lomotil) trazodone 50 mg tablet 50 mg PO DAILY #30 tabs 04/11/25 peg 3350-electrolytes 236 240 ml PO Q10M #4,000 mL 04/14/25 gram-22.74 gram-6.74 gram-5.86 gram solution (Golytely) Allergies Allergy/AdvReac Type Severity Reaction Status Date / Time No Known Allergies Allergy Verified 04/11/25 08:43 Review of Systems General: Reports: 10 or more systems reviewed and unremarkable except in HPI and below GI: Reports: abdominal pain and constipation PFSH ED PFSH: Medical History Nocturia Rectal cancer Secondary malignant neoplasm of retroperitoneum and peritoneum Malignant neoplasm of rectum GERD (gastroesophageal reflux disease) Nicotine dependence Hypertension Hyperlipidemia Surgical History H/O colonoscopy with polypectomy (~04/2019) S/P biopsy (~11/2019) CT directed biopsy of peritoneal mass Status post surgical removal of malignant neoplasm of skin Port-A-Cath in place placed in L subclavian 11/15/2019 Hx of circumcision Hx of tonsillectomy Family History Father Diabetes CAD (coronary artery disease) Mother Dementia Stroke Grandfather Lung disease Other Breast cancer Heart disease Parkinson disease Denies family history of Clotting disorder Hyperlipidemia Psychiatric illness Chronic kidney disease (CKD) Suicide Anesthesia complication Bleeding disorder Hypertension Social History Smoking and tobacco/nicotine status: former use of tobacco/nicotine Alcohol intake: current Alcohol intake frequency: few times a week Alcohol type: beer Substance/Drug Use: former Date of last use: THC Lives independently: Yes Marital status: Current occupational status: employed 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 Special nacho needs: No Agree to transfusion: Yes Physical Exam Const: COMMON NORMALS: no acute distress, patient oriented x3 and no limitations GENERAL APPEARANCE: cooperative and comfortable HENMT: COMMON NORMALS: normocephalic, atraumatic, Normal nasal mucous membranes and turbinates present, moist oral mucous membranes and oropharynx normal HEAD & SCALP: normal to inspection, normocephalic and atraumatic FACE & SINUS: normal facial exam NOSE: Normal nasal mucous membranes and turbinates present Eye: COMMON NORMALS: Equal, round and reactive pupils present, EOMs intact bilaterally and conjunctivae normal GENERAL EYE: appearance normal, both eyes and all related structures CONJUNCTIVA: Yes conjunctivae normal PUPIL: Yes Equal, round and reactive pupils present Neck/C-Spine: COMMON NORMALS: supple and no JVD Chest: COMMONS NORMALS: normal inspection of the chest Resp: COMMON NORMALS: normal respiratory effort and clear to auscultation bilaterally AUSCULTATION: clear to auscultation bilaterally Cardio: COMMON NORMALS: no JVD, regular rate, regular rhythm, No gallops present (Cardio), No murmurs present (Cardio) and No rub (Cardio) RATE: regular rate RHYTHM: regular rhythm GI: COMMON NORMALS: Soft to palpation AUSCULTATION: Yes normoactive bowel sounds PALPATION: Yes Soft to palpation OTHER: Some mild to moderate diffuse abdominal pain. : COMMON NORMALS: Yes no CVA tenderness BLADDER/KIDNEY EXAM: Yes no CVA tenderness Back/Pelvis: COMMON NORMALS: no CVA tenderness and thoracic and lumbar spine normal to inspection Extremity: COMMON NORMALS: normal to inspection Neuro: COMMON NORMALS: patient oriented x3 and CN's II-XII intact bilaterally Psych: COMMON NORMALS: mental status grossly normal, Normal thought process present and cooperative THOUGHT PROCESS: Normal thought process present Skin: COMMON NORMALS: no rashes or lesions noted, turgor normal and no jaundice GENERAL SKIN EXAM: no rashes or lesions noted and turgor normal Course Vital Signs: Vital signs: Vital Signs Temperature 98.3 F 04/14/25 12:25 Pulse Rate 80 04/14/25 14:00 Respiratory Rate 18 04/14/25 13:40 Blood Pressure 153/77 04/14/25 14:00 Pulse Oximetry 96 04/14/25 14:00 Oxygen Delivery Me thod Room Air 04/14/25 14:00 MDM - Back Pain/Injury Medical Decision Making Abdominal flatplate and upright films reveal constipation. No obstruction. No free air. Patient was given morphine injection as well as Toradol for his pain. He will need to drink GoLytely and administer couple of enemas at home. Recommended he return to the emergency department tomorrow if he has not had a bowel movement. He was discharged with his son in stable condition. Labs Radiology Impressions Chest/Abdomen X-ray 04/14/25 12:41 IMPRESSION: Nonacute findings. All radiology interpretation(s) finalized by discharge Discharge Plan Discharge Patient Disposition: Home Clinical Impression: Constipation Qualifiers: Constipation type: drug induced constipation Qualified Code(s): K59.03 - Drug induced constipation Condition: Stable Prescriptions: New peg 3350-electrolytes [Golytely] 236-22.74-6.74 -5.86 gram recon soln 240 ml PO Q10M Qty: 4000 0RF Rx Instructions: until fecal effluent is clear No Action trazodone 50 mg tablet 50 mg PO DAILY Qty: 30 6RF Rx Instructions: Take 15-30 minutes prior bedtime diphenoxylate-atropine [Lomotil] 2.5-0.025 mg tablet 2 tab PO QID MDD 8 tab PRN (Reason: diarrhea) Qty: 60 3RF Rx Instructions: 2 tabs orally 4xdaily until control of diarrhea omeprazole 20 mg capsule,delayed release(DR/EC) 20 mg PO DAILY PRN (Reason: Heartburn) Qty: 60 2RF ondansetron HCl 4 mg tablet 4 mg PO Q6H PRN (Reason: nausea and vomiting) Qty: 30 3RF prochlorperazine maleate [Compazine] 10 mg tablet 10 mg PO Q4H PRN (Reason: mild nausea) Qty: 30 3RF hydrocodone-acetaminophen 10-325 mg tablet 1 tab PO Q4H PRN (Reason: pain) 30 Days Qty: 180 0RF Discharge Orders: Discharge ED (Routine); Ordered 04/14/25 Ordered By: Clinton Ren Referrals: Rony Arce MD [Primary Care Provider, Family Practice] Patient Instructions: Constipation (DC), Opioid Safety, Pain Management Activity Restrictions/Additional Instructions: Drink the GoLytely today. Also administer a couple of enemas. If you do not have a bowel movement by tomorrow return to the emergency department and call your oncologist. Print Language: Greek Coding Level of Care Code ED Plastic Sheets Supervisor for Román Olmos
[2025-04-14] MEDS: ketorolac 30 mg/mL INJ IM (14:26)
== END 2025-04-14 14:39 | disposition home or self-care (01) ==
PROVIDERS: Emergency Provider Emergency Medicine; PCP Family Medicine
DX: K59.03 Drug induced constipation (principal); Z87.891 Personal history of nicotine dependence; Z85.048 Personal history of other malignant neoplasm of rectum, rectosigmoid junction, and anus; E78.5 Hyperlipidemia, unspecified; I10 Essential (primary) hypertension
CPT/HCPCS: 74022; 96372; 99284; J1885; J2270; Q0162

== ENCOUNTER 2025-04-25 09:15 | Oncology outpatient (recurring) (ONCR) | payer MEDICARE, OTHER, SELFPAY ==
[2025-04-25 09:51] LABS: Hematocrit 36.3 % (37-53); Nucleated Red Blood Cells % 0 %; Red Blood Count 4.32 10^6/uL (3.85-5.65); Red Cell Distribution Width 18.6 % (12.1-15.1)
[2025-04-25 10:20] LABS: Basophils # 0.1 10^3/uL (0.0-0.1); Basophils % 0.7 %; Eosinophils # 0.1 10^3/uL (0.0-0.8); Eosinophils % 0.6 %; Lymphocytes # 0.8 10^3/uL (0.8-4.8); Lymphocytes % 6.1 %; Mean Corpuscular Hemoglobin 26.9 pg (27-33); Mean Platelet Volume 9.1 fL (7.4-10.4); Monocytes # 1.3 10^3/uL (0.2-0.9); Monocytes % 10.2 %; Neutrophils % 79.2 %; Platelet Count 307 10^3/cmm (157-399); White Blood Count 12.38 10^3/uL (3.29-11.43)
[2025-04-25 10:48] LABS: Alanine Aminotransferase 31 U/L (0-41); Albumin Level 3.1 g/dL (3.5-5.2); Alkaline Phosphatase 454 U/L (40-130); Anion Gap 21.6 (5-19); Aspartate Amino Transferase 65 U/L (0-40); Blood Urea Nitrogen 27 mg/dL (8-23); Calcium 8.6 mg/dL (8.5-10.5); Carbon Dioxide 23 mmol/L (22-29); Chloride 96 mmol/L (98-107); Creatinine Clr Calc Pharmacy 70.3539; Globulin 4.3 g/dL (1.3-4.6); Glucose 107 mg/dL (65-115); Osmolality Calculated 290 mOsm/kg (285-295); Potassium 3.6 mmol/L (3.5-5.1); Sodium 137 mmol/L (136-145); Total Bilirubin 0.8 mg/dL (0.15-1.2); Total Protein 7.4 g/dL (6.6-8.7)
[2025-04-25] MEDS: sodium chloride 0.9% 1,000 ML 999 ML IV (10:50)
[2025-04-25 10:51] VITALS: RESP 16
[2025-04-25] MEDS: morphine 4 mg/mL SDV 1 mL 5 MG IVP ×3 (10:51→13:32)
[2025-04-25] MEDS: dexamethasone 4 mg/mL INJ 12 MG IV (10:56)
[2025-04-25] MEDS: famotidine 20 mg/2 mL INJ IVP (10:57)
[2025-04-25] MEDS: ondansetron 2 mg/ML SDV 2 mL 8 MG IVP (10:59)
[2025-04-25 12:09] VITALS: RESP 16; O2SAT 95
--- NOTE | 2025-04-25 12:09 | XR_ITS ---
WS: [id number] Acute abdomen series, 04/25/2025 Clinical Data: abdominal pain and obstipation Comparison: Acute abdomen series, 04/14/2025 Findings: In the chest there are no nodules, masses or effusions. The heart is normal. The pulmonary vascularity is not increased. There is blunting of the right costophrenic angle which is chronic. There is minimal opacification of the right lower lobe also chronic. The aortic arch and descending thoracic aorta show minimal calcification and tortuosity. There is an infusion catheter entering from the left and ending in the superior vena cava. No free air is seen beneath the diaphragms. No abnormal intra-abdominal masses or calcifications are seen. There is air in the small bowel and the colon. There is moderate fecal material in the ascending and descending colon's. The bladder is partly full. There is mild osteoarthritis of the lumbar vertebral bodies. XR/XR acute abdomen series [id number] Impression: 1. Minimal right lower lobe opacification and blunting of the right costophreni c angle, a chronic finding. 2. Atherosclerosis. 3. Moderate fecal material in the colon. 4. Mild generalized ileus.
[2025-04-25 13:32] VITALS: RESP 16; O2SAT 96
[2025-04-25 15:21] VITALS: BP 127/77; PULSE 78; RESP 16; TEMP 36.8; O2SAT 95
== END 2025-04-25 15:34 | disposition home or self-care (01) ==
PROVIDERS: Internal Medicine Medical Oncology; PCP Family Medicine; Visit Provider Internal Medicine
DX: C20 Malignant neoplasm of rectum (principal); C78.6 Secondary malignant neoplasm of retroperitoneum and peritoneum; I70.90 Unspecified atherosclerosis; R91.8 Other nonspecific abnormal finding of lung field; K56.7 Ileus, unspecified; Z87.891 Personal history of nicotine dependence
CPT/HCPCS: 74022; 80053; 85025; 96360; 99215; J1100; J2270; J2405; J3490; J7030

== ENCOUNTER 2025-04-25 16:48 | Inpatient (IN) | payer MEDICARE, OTHER, SELFPAY ==
--- OUTSIDE RECORDS SUMMARY | 2025-04-25 16:51 | XMS_ITS | Clinical Summary ---
Author Organization [facility] Address [address] [place] [address] Care Team Providers Care Game Show Host Name Role Phone Unavailable Primary Care Provider Unavailabl e Social History Tobacco Use Types Packs/Day Years Used Date Smoking Tobacco: Never Assessed Sex and Gender Information Value Date Recorded Sex Assigned at Not on file Legal Sex Male 9:24 AM [employer] Gender Identity Not on file Sexual Orientation Not on file Plan of Treatment Health Maintenance Due Date Last Done Comments DTAP/TDAP/TD VACCINES (1 - Tdap) 1972 COLORECTAL SCREENING 1998 Colorectal Cancer Screening 1998 FIT-DNA Q 3 years 1998 FIT/FOBT Q 1 year 1998 Flex Sig/CT Colonography Q 5 years 1998 PNEUMOCOCCAL VACCINE 50+ YEARS (1 of 1 - PCV) 06/21/20 03 ZOSTER VACCINE (1 of 2) 2003 INFLUENZA VACCINE (#1) 2024 RSV VACCINE (60+ or ) (1 - 1-dose 75+ series) 2028
--- NOTE | 2025-04-25 16:58 | PM.HP ---
Providers/Chief Complaint Admitting Physician: Jose Alberto Lacy DO Primary Care Provider: Rony Arce MD Chief Complaint: ilus History of Present Illness Mick Fritz is a 69 year old male presented to oncology office hopeful for palliative chemo treatment for his stage IV rectal cancer with mets to lung and liver. However he reported worsening abdominal pain nausea. His son helps fill in the history. Basically the patient's been doing poorly for about a month he has not had chemo since then. At one time he was hospitalized with hematochezia and abdominal pain. After receiving GoLytely at that visit he was able to have a small BM with some relief. For the past week the pain has been mounting however he still wished for aggressive treatment with palliative chemotherapy. Oncology called for direct admission after abdominal x-ray showed ileus for NG tube repeat CAT scan. I did not realize 1 was just done less than 1 month ago. At that time showed progression of disease with new extension proximately into the mid sigmoid colon. The multiple hepatic metastasis have increased in size and number. The amount of intraperitoneal fluid has increased. Patient reports significant pain while he looks comfortable. He states that he is taken morphine 10 mg with good result before. The 5 mg dose given in the office his only lasted an hour and a half Review of Systems Const: Denies: fever(s) or chills Eyes: Denies: change in vision ENMT: Denies: throat pain or nasal congestion Card: Denies: chest pain or palpitations Resp: Denies: dyspnea or productive cough GI: Reports: abdominal pain, nausea, rectal pain and hematochezia; Denies: vomiting : Denies: difficulty urinating or dysuria Musc: Denies: back pain or extremity pain Skin/Breast: Denies: rash or lesions Neuro: Denies: headache(s) or dizziness Psych: Denies: anxiety or depression Eliu/Lymph: Denies: easy bruising or easy bleeding Medications/Allergies Home Medications ?Medication ?Instructions ?Recorded ?Confirmed ?Last Taken ?Type ondansetron HCl 4 mg tablet 4 mg PO Q6H PRN nausea and 10/03/24 04/25/25 Unknown Rx vomiting #30 tabs prochlorperazine maleate 10 mg 10 mg PO Q4H PRN mild nausea #30 10/03/24 04/25/25 Unknown Rx tablet (Compazine) tabs omeprazole 20 mg capsule,delayed 20 mg PO DAILY PRN Heartburn #60 12/13/24 04/25/25 Unknown Rx release caps diphenoxylate-atropine 2.5 2 tab PO QID PRN diarrhea #60 tabs 04/11/25 04/25/25 Unknown Rx mg-0.025 mg tablet (Lomotil) trazodone 50 mg tablet 50 mg PO DAILY #30 tabs 04/11/25 04/25/25 Unknown Rx peg 3350-electrolytes 236 240 ml PO Q10M #4,000 mL 04/14/25 04/25/25 Unknown Rx gram-22.74 gram-6.74 gram-5.86 gram solution (Golytely) hydrocodone 10 mg-acetaminophen 1 tab PO Q4H PRN pain 30 days #180 04/22/25 04/25/25 Unknown Rx 325 mg tablet tabs Allergies Allergy/AdvReac Type Severity Reaction Status Date / Time No Known Allergies Allergy Verified 04/25/25 09:41 PFSH Acute PFSH: Medical History Nocturia Rectal cancer Secondary malignant neoplasm of retroperitoneum and peritoneum Malignant neoplasm of rectum GERD (gastroesophageal reflux disease) Nicotine dependence Hypertension Hyperlipidemia Surgical History H/O colonoscopy with polypectomy (~04/2019) S/P biopsy (~11/2019) CT directed biopsy of peritoneal mass Status post surgical removal of malignant neoplasm of skin Port-A-Cath in place placed in L subclavian 11/15/2019 Hx of circumcision Hx of tonsillectomy Family History Father Diabetes CAD (coronary artery disease) Mother Dementia Stroke Grandfather Lung disease Other Breast cancer Heart disease Parkinson disease Denies family history of Clotting disorder Hyperlipidemia Psychiatric illness Chronic kidney disease (CKD) Suicide Anesthesia complication Bleeding disorder Hypertension Social History Smoking and tobacco/nicotine status: former use of tobacco/nicotine Alcohol intake: current Alcohol intake frequency: few times a week Alcohol type: beer Substance/Drug Use: former Date of last use: THC Lives independently: Yes Marital status: Current occupational status: employed 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 However he appears comfortable HEENT head is normocephalic atraumatic pupils equal round reactive to light and accommodation ocular ocular muscles are intact there is no scleral icterus neck is supple no JVD carotid bruits lymph not adenopathy mucous membranes are dry light pink Heart regular rate and rhythm normal S1-S2 without loud murmur Lungs mildly diminished breath sounds but clear to auscultation anteriorly and posteriorly Abdomen significant tenderness in the left lower quadrant as well as the right lower quadrant there is no rebound rigidity or guarding hypoactive bowel sounds Extremities for present no clubbing cyanosis or edema Skin no lesions or exudate Back no CVA tenderness or significant kyphosis or scoliosis Psych mood and affect appropriate for condition Neuro alert and oriented to person place time and situation. He is nonfocal on exam Data Other Labs: Labs done in oncology show an elevated white count of 12.38 Hemoglobin normal at 11.6 platelets 307 Abnormal chemistries are chloride low at 96 anion gap of 21.6 BUN of 27 creatinine is normal at 1.0 A&P Assessment and plan (1) Ileus: (2) Abdominal pain: (3) 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 He will have an NG tube placed fluids started and pain control. Patient has a high pain tolerance due to his previous usage of opiate for metastatic rectal cancer. He reports morphine 5 mg ineffective but 10 works. Thus he was started on morphine 10 mg IV 3 hours as needed. I have also ordered Dilaudid 0.5 mg IV as needed breakthrough pain. I would consider fentanyl patch. I had a long talk with patient and his son. After seeing that the CAT scan was 1 month ago I talked with them how I did not believe it was medically indicated to repeat. All it will show me is either similar results or worsening cancer progression. That will not change our goals of care or current management. I explained to them what Trista HEART from oncology told me that there is no further chemotherapy agents to be used. The cancer is progressing at this time despite multiple different attempts at a few different chemotherapies. I did explain to the patient that I recommend comfort measures only and admission to hospice. He was reluctant and did not think he was ready yet. I explained the point of hospice is to be on the program so that when things get worse there is a program there to help him. He and his son were more open to this. Lastly during this discussion the patient did say he did not want resuscitation and thus I will change him to allow natural in our order set. Next he will have to be discharged with a PEG tube for decompression. Since he was admitted after business hours. I will leave to the next attending physician to arrange with surgery for a PEG tube for comfort measures. Advise hospice consult tomorrow if patient is open to discussion. I have left a message with Trista HEART from oncology to let her know the above plan and reasoning. PDMP PDMP Reviewed: Not Reviewed Attestations Medical Necessity Statement*: Patient requires a 2 midnight stay for the alleviation of ileus requiring n.p.o. status IV fluids and IV pain medication. Coding Level of Care Code Acute Code for [facility] Diagnoses Ileus K56.7 Abdominal pain R10.9 Malignant neoplasm of rectum metastatic to liver C20; C78.7 Malignant neoplasm of rectum metastatic to lung C20; C78.00
[2025-04-25 16:59] VITALS: BP 128/80; PULSE 75; RESP 16; TEMP 36.4; O2SAT 97
--- NOTE | 2025-04-25 17:50 | XRR_ITS ---
PROCEDURE INFORMATION: Exam: XR Chest Exam date and time: 04/25/2025 5:54 PM Age: 69 years old Clinical indication: Device placement; Ng tube; Additional info: Verify ng placement TECHNIQUE: Imaging protocol: Radiologic exam of the chest. Views: 1 view. COMPARISON: CT chest betty w/*[id number] 04/05/2025 10:13 AM FINDINGS: Tubes, catheters and devices: The NG tube is positioned in the proximal stomach with its side-hole at the GE junction. Consider advancing 4 cm for more optimal positioning. Left-sided Port-A-Cath. Lungs: Unremarkable. No consolidation. Pleural spaces: Unremarkable. No pleural effusion. No pneumothorax. Heart/Mediastinum: Unremarkable. No cardiomegaly. Bones/joints: Unremarkable. XR/XR chest 1V portable [id number] IMPRESSION: The NG tube is positioned in the proximal stomach with its side-hole at the GE junction. Consider advancing 4 cm for more optimal positioning.
[2025-04-25] MEDS: HYDROmorphone 0.5 MG/0.5 ML INJ IVP (18:06)
[2025-04-25] MEDS: enoxaparin 40 mg/0.4 mL Syringe SUBCUT (18:13)
[2025-04-25] MEDS: D5-NS 0.45% + KCL 20 mEq 20 MEQ/1,000 ML BAG 75 MEQ IV (18:14)
[2025-04-25] MEDS: famotidine 20 mg/2 mL INJ IVP (18:14)
--- NOTE | 2025-04-25 18:55 | PC.NURSE ---
patient denies pain at this time. dilaudid effective.
[2025-04-25 20:32] VITALS: BP 134/81; PULSE 81; RESP 16; TEMP 37.1; O2SAT 97
[2025-04-26] MEDS: famotidine 20 mg/2 mL INJ IVP ×2 (04:39→17:05)
[2025-04-26] MEDS: HYDROmorphone 0.5 MG/0.5 ML INJ IVP ×3 (04:39→20:20)
[2025-04-26 05:36] LABS: Basophils % 0.2 %; Hematocrit 34.3 % (37-53); Lymphocytes # 0.5 10^3/uL (0.8-4.8); Lymphocytes % 4.5 %; Mean Corpuscular HGB Conc 31.8 g/dL (30-55); Mean Corpuscular Hemoglobin 26.7 pg (27-33); Mean Corpuscular Volume 84.1 fl (82-101); Mean Platelet Volume 9.2 fL (7.4-10.4); Monocytes # 0.6 10^3/uL (0.2-0.9); Monocytes % 6.2 %; Neutrophils # 8.84 10^3/uL (1.8-7.7); Neutrophils % 85.8 %; Nucleated Red Blood Cells % 0 %; Platelet Count 268 10^3/cmm (157-399); Red Blood Count 4.08 10^6/uL (3.85-5.65); Red Cell Distribution Width 18.3 % (12.1-15.1)
[2025-04-26 05:56] LABS: Anion Gap 17.5 (5-19); Blood Urea Nitrogen 32 mg/dL (8-23); Calcium 8.4 mg/dL (8.5-10.5); Carbon Dioxide 24 mmol/L (22-29); Chloride 98 mmol/L (98-107); Glucose 168 mg/dL (65-115); Osmolality Calculated 291 mOsm/kg (285-295); Potassium 4.5 mmol/L (3.5-5.1); Sodium 135 mmol/L (136-145)
[2025-04-26] MEDS: D5-NS 0.45% + KCL 20 mEq 20 MEQ/1,000 ML BAG 75 MEQ IV ×2 (06:31→21:18)
[2025-04-26 07:34] VITALS: BP 138/64; PULSE 77; RESP 19; TEMP 36.7; O2SAT 95
[2025-04-26 07:55] VITALS: RESP 17
[2025-04-26] MEDS: morphine 4 mg/mL SDV 1 mL 10 MG IVP (07:55)
[2025-04-26 11:18] VITALS: BP 144/83; PULSE 78; RESP 20; TEMP 36.7; O2SAT 97
--- NOTE | 2025-04-26 11:36 | CTR_ITS ---
PROCEDURE INFORMATION: Exam: CT Abdomen And Pelvis With Contrast Exam date and time: 04/26/2025 1:31 PM Age: 69 years old Clinical indication: Constipation; Additional info: Severe constipation, HX of cancer, R/O bowel obstruction TECHNIQUE: Imaging protocol: Computed tomography of the abdomen and pelvis with contrast. Radiation optimization: All CT scans at this facility use at least one of these dose optimization techniques: automated exposure control; mA and/or kV adjustment per patient size (includes targeted exams where dose is matched to clinical indication); or iterative reconstruction. Contrast material: OMNI 350; Contrast volume: 100 ml; Contrast route: INTRAVENOUS (IV); COMPARISON: CT chest abdpel w/*[id number] 12/26/2024 12:26 PM RADIATION DOSE METRICS: Total DLP (mGy-cm): 481.73 FINDINGS: Tubes, catheters and devices: Interval placement of esophagogastric tube with the tip in the proximal stomach. Proximal side port is above the esophagogastric junction. Lungs: New 3 mm left lower lobe pulmonary nodule medially and stable additional small left lower lobe pulmonary nodules, suspicious for metastatic disease. Right basilar compressive atelectasis. Pleural spaces: Stable small right pleural effusion. Liver: Increased size of large heterogeneous hepatic masses consistent with metastatic disease. Largest is in the dome of the liver and measures proximally 8.1 x 6.4 cm, previously 6.9 x 6.1 cm. Stable 3.6 cm cyst in segment 6 of the liver. Gallbladder and biliary ducts: Mild nonspecific gallbladder wall thickening. Pancreas: Normal. No ductal dilation. Spleen: Mild splenomegaly. Adrenal glands: Normal. No mass. Kidneys and ureters: Multiple small bilateral nonobstructing renal calculi measuring up to approximately 3 mm. New moderate left hydroureteronephrosis, uncertain etiology. Stomach and bowel: Circumferential wall thickening in the rectum suspicious for malignancy. Colonic diverticulosis is present without diverticulitis. Bowel has normal caliber. Appendix: No evidence of appendicitis. Intraperitoneal space: Increased [id number] ascites. Vasculature: Aortoiliac atherosclerotic disease is seen without evidence of aneurysm. Lymph nodes: Unremarkable. No enlarged lymph nodes. Urinary bladder: Possible tiny enhancing bladder mass measuring up to 8 mm at the UVJ on series . Reproductive: Unremarkable as visualized. Bones/joints: Unremarkable. No acute fracture. Soft tissues: Unremarkable. CT/CT abdomen pelvis w con* [id number] IMPRESSION: 1. New moderate left hydroureteronephrosis, uncertain etiology. 2. Possible tiny enhancing bladder mass measuring up to 8 mm at the UVJ on series . This could represent an inflamed ureteral orifice, possibly from recent stone passage versus neoplasm and is likely the etiology for obstruction. Urology consultation is recommended. 3. Increased [id number] ascites. 4. New 3 mm left lower lobe pulmonary nodule medially and stable additional small left lower lobe pulmonary nodules, suspicious for metastatic disease. 5. Increased size of large heterogeneous hepatic masses consistent with metastatic disease. Largest is in the dome of the liver and measures proximally 8.1 x 6.4 cm, previously 6.9 x 6.1 cm. 6. Mild nonspecific gallbladder wall thickening. 7. Mild splenomegaly. 8. Multiple small bilateral nonobstructing renal calculi measuring up to approximately 3 mm. 9. Circumferential wall thickening in the rectum suspicious for malignancy. 10. Stable small right pleural effusion. 11. Interval placement of esophagogastric tube with the tip in the proximal stomach. Proximal side port is above the esophagogastric junction.
--- NOTE | 2025-04-26 11:58 | PC.NUTR ---
If PN medically appropriate, recommend TPN vs PPN depending on administration route. Begin PN @ 23mls/hr, increasing 20mls Q8H until goal rate of 83mls/hr is reached, to include MV 10mls/day, standard electrolytes, ascorbic acid 500mgs/day or per MD discretion. If EN medically appropriate, recommend Jevity 1.5 starting @ 15mls/hr, increasing 10mls Q8H as tolerated until goal rate of 45mls/hr is reached, with FWF 120mls Q4H or per MD discretion.
--- NOTE | 2025-04-26 12:42 | P.PN_ITS ---
Subjective 2 Subjective: Had a long discussion with patient this morning. He has an NG tube in place at this time. He states he is drinking water however NG tube is putting it out which is expected. He states that he has been constipated for about a week at this point. He states he is not interested in hospice at all and would like to pursue treatment if there is 1. He states he is a guinea pig and would like to keep trying what ever treatment there may be possible as he believes if he does go with hospice it will be the easy way out. He has not had a bowel movement overnight. He is agreeable for CT scan at this point. I discussed with him that I will talk to oncology to discuss his care. We did go over his conversation with admitting hospitalist from yesterday and discussion regarding hospice. I also discussed with him that Hollie from oncology stated that there were no other chemotherapy options available at this time. Patient states he would like to pursue a feeding tube if it has come to that . We did discussion that we will go ahead with a CT scan and then discussed with oncology and general surgery to see what options there may be available at this point. I did discuss with him once again that if there were no other treatment options then hospice may be a possibility. Vitals/I&O/Wt Last Vital Signs Temp 98.0 F 04/26/25 11:18 Pulse 78 04/26/25 11:18 Resp 20 H 04/26/25 11:18 BP 144/83 04/26/25 11:18 Pulse Ox 97 04/26/25 11:18 O2 Del Method Room Air 04/26/25 11:18 04/25/25 04/26/25 04/26/25 22:59 06:59 14:59 Intake Total 1161.25 / 1161.25 Output Total 0 / 0 Balance 1161.25 / 1161.25 Weight last 48 hrs Weight 60.328 kg Physical Exam 2 Narrative: Thin frail weak appearing male laying in bed comfortably with NG tube in place HEENT head is normocephalic atraumatic pupils equal round reactive to light and accommodation ocular ocular muscles are intact there is no scleral icterus neck is supple no JVD carotid bruits lymph not adenopathy mucous membranes are dry light pink Heart regular rate rhythm normal S1-S2, no gross murmurs Lungs mildly diminished breath sounds but clear to auscultation anteriorly and posteriorly Abdomen significant tenderness in the left lower quadrant as well as the right lower quadrant there is no rebound rigidity or guarding hypoactive bowel sounds Extremities for present no clubbing cyanosis or edema Data 04/26/25 05:25 04/26/25 05:25 A&P Assessment and plan (1) Ileus: (2) Abdominal pain: (3) 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 He will have an NG tube placed fluids started and pain control. Patient has a high pain tolerance due to his previous usage of opiate for metastatic rectal cancer. He reports morphine 5 mg ineffective but 10 works. Thus he was started on morphine 10 mg IV 3 hours as needed. I have also ordered Dilaudid 0.5 mg IV as needed breakthrough pain. I would consider fentanyl patch. I had a long talk with patient and his son. After seeing that the CAT scan was 1 month ago I talked with them how I did not believe it was medically indicated to repeat. All it will show me is either similar results or worsening cancer progression. That will not change our goals of care or current management. I explained to them what Trista HEART from oncology told me that there is no further chemotherapy agents to be used. The cancer is progressing at this time despite multiple different attempts at a few different chemotherapies. I did explain to the patient that I recommend comfort measures only and admission to hospice. He was reluctant and did not think he was ready yet. I explained the point of hospice is to be on the program so that when things get worse there is a program there to help him. He and his son were more open to this. Lastly during this discussion the patient did say he did not want resuscitation and thus I will change him to allow natural in our order set. Next he will have to be discharged with a PEG tube for decompression. Since he was admitted after business hours. I will leave to the next attending physician to arrange with surgery for a PEG tube for comfort measures. Advise hospice consult tomorrow if patient is open to discussion. I have left a message with Trista HEART from oncology to let her know the above plan and reasoning. 04/26/2025 Prognosis is definitely guarded and I believe hospice palliative care may be appropriate at this point however patient would like to pursue chemotherapy if possible. He would like to proceed with a CT abdomen for reevaluation. I discussed with him we will do the scan today and then discuss options with general surgery and oncology and go from there. He is agreeable at this time. He is agreeable to PEG tube if needed. We will clamp NG tube and check CT abdomen pelvis. Patient has not had any vomiting. I will start patient on GoLytely after reviewing CT abdomen pelvis. Continue n.p.o. PDMP PDMP Reviewed: Not Reviewed Attestations 2 Medical Necessity Statement*: Ileus versus bowel obstruction. 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
[2025-04-26] MEDS: iohexol 350 mg/mL 500 mL Btl (per mL) IV (13:34)
--- NOTE | 2025-04-26 13:41 | PC.SOCIAL ---
IMM UPDATED IMM dated and initialed, copy given to patient and copy placed in chart.
[2025-04-26 15:29] VITALS: BP 131/79; PULSE 68; RESP 18; TEMP 36.7; O2SAT 97
--- NOTE | 2025-04-26 16:11 | P.CONIM_ITS ---
Providers/Reason For Consult 2 Consulting Physician/Specialty*: dr. jimenez gen surg Reason for Consult*: metastatic colon cancer Attending Physician: Gracy Recinos MD Primary Care Provider: Rony Arce MD History of Present Illness History of Present Illness Mick Fritz is a 69 year old male with metastatic colon cancer. Now with a partial obstruction. Medications/Allergies Home Medications ?Medication ?Instructions ?Recorded ?Confirmed ?Last Taken ?Type ondansetron HCl 4 mg tablet 4 mg PO Q6H PRN nausea and 10/03/24 04/26/25 Unknown Rx vomiting #30 tabs prochlorperazine maleate 10 mg 10 mg PO Q4H PRN mild n ausea #30 10/03/24 04/26/25 Unknown Rx tablet (Compazine) tabs diphenoxylate-atropine 2.5 2 tab PO QID PRN diarrhea # 60 tabs 04/11/25 04/26/25 Unknown Rx mg-0.025 mg tablet (Lomotil) trazodone 50 mg tablet 50 mg PO DAILY #30 tabs 05/2 08/0804/26/25 04/24/25 Rx hydrocodone 10 mg-acetaminophen 1 tab PO Q4H PRN pain 30 days #180 04/22/25 04/26/25 Unknown Rx 325 mg tablet tabs omeprazole 20 mg capsule,delayed 20 mg PO DAILY Heartb urn 04/26/25 04/26/25 04/24/25 History release Allergies Allergy/AdvReac Type Severity Reaction Status Date / Time No Known Allergies Allergy Verified 04/25/25 09:41 Current Medications Generic Name Dose Route Start Last Admin Trade Name Zahra PRN Reason Stop Dose Admin Enoxaparin Sodium 40 mg 04/25/25 17:00 04/25/25 18:13 Enoxaparin 40 Mg/0.4 Ml Syringe SUBCUT 40 mg Q24H KATIA Administration Famotidine 20 mg 04/25/25 17:00 04/26/25 04:39 Famotidine 20 Mg/2 Ml Inj IVP 20 mg Q12H KATIA Administration Hydromorphone HCl 0.5 mg 04/25/25 17:20 04/26/25 13:15 Hydromorphone 0.5 Mg/0.5 Ml Inj IVP 0.5 mg Q4H PRN Administration PAIN Potassium Chloride/Dextrose/Sod Cl 20 meq in 1,000 mls @ 75 mls/hr 04/25/25 17:00 04/26/25 06:31 D5-Ns 0.45% + Kcl 20 Meq IV 75 mls/hr .[id number] KATIA Administration PFSH Acute 2 PFSH: Medical History Nocturia Rectal cancer Secondary malignant neoplasm of retroperitoneum and peritoneum Malignant neoplasm of rectum GERD (gastroesophageal reflux disease) Nicotine dependence Hypertension Hyperlipidemia Surgical History H/O colonoscopy with polypectomy (~04/2019) S/P biopsy (~11/2019) CT directed biopsy of peritoneal mass Status post surgical removal of malignant neoplasm of skin Port-A-Cath in place placed in L subclavian 11/15/2019 Hx of circumcision Hx of tonsillectomy Family History Father Diabetes CAD (coronary artery disease) Mother Dementia Stroke Grandfather Lung disease Other Breast cancer Heart disease Parkinson disease Denies family history of Clotting disorder Hyperlipidemia Psychiatric illness Chronic kidney disease (CKD) Suicide Anesthesia complication Bleeding disorder Hypertension Social History Smoking and tobacco/nicotine status: former use of tobacco/nicotine Alcohol intake: current Alcohol intake frequency: few times a week Alcohol type: beer Substance/Drug Use: former Date of last use: THC Lives independently: Yes Marital status: Current occupational status: employed 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 Special nacho needs: No Agree to transfusion: Yes Vitals/I&O/Wt Last Vital Signs Temp 98.0 F 04/26/25 15:29 Pulse 68 04/26/25 15:29 Resp 18 04/26/25 15:29 BP 131/79 04/26/25 15:29 Pulse Ox 97 04/26/25 15:29 O2 Del Method Room Air 04/26/25 15:29 04/26/25 04/26/25 04/26/25 06:59 14:59 22:59 Intake Total 1161.25 / 1161.25 Output Total 0 / 0 Balance 1161.25 / 1161.25 Weight last 48 hrs Weight 133 lb Physical Exam 2 Narrative: RRR Unlabored breathing RA Abdomen soft, distended, non peritonitic Data 04/26/25 05:25 04/27/25 03:06 A&P Assessment and plan (1) 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 Now with partial bowel obstruction. Had an extensive discussion with the patient. This is end-stage colon cancer. No surgical options. Patient has opted tu pursue hospice care. 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
--- NOTE | 2025-04-26 17:02 | PC.NURSE ---
Patient has chosen to use [facility] and then [facility]. Spoke to Dr. Valle who said we can take the NG tube out.
[2025-04-26] MEDS: enoxaparin 40 mg/0.4 mL Syringe SUBCUT (17:05)
[2025-04-26 17:06] VITALS: RESP 16
[2025-04-26] MEDS: morphine 4 mg/mL SDV 1 mL IVP (17:06)
--- NOTE | 2025-04-26 17:59 | PC.NURSE ---
Placed Hospice referral at this time.
--- NOTE | 2025-04-26 19:11 | PM.MISC ---
Miscellaneous Note Note: Seen twice today. I discussed his case with Dr. Valle general surgery and consulted him and also spoke with Hollie Daniels from oncology. They both evaluated the patient and recommended hospice at this time. They have informed me that patient is on board and will be going home with hospice. Hollie will be reaching out to Dr. Avila with colorectal surgery in [place] and reaching out to [place] for possibly entering patient into a clinical trial. Patient has been advised that he may be able to continue treatment and come off of hospice if there are any options available. At this point we will add GoLytely. He has not had a bowel movement today. Pain is controlled. Hospice referral has been placed as per patient and family's wishes.
[2025-04-26] MEDS: peg /e-lyte soln 4,000 mL Btl 1500 ML PO (20:18)
[2025-04-26 22:12] VITALS: BP 117/80; PULSE 77; RESP 15; TEMP 36.7; O2SAT 97
[2025-04-27 04:57] LABS: Anion Gap 17.1 (5-19); Blood Urea Nitrogen 29 mg/dL (8-23); Calcium 8.5 mg/dL (8.5-10.5); Carbon Dioxide 23 mmol/L (22-29); Chloride 99 mmol/L (98-107); Creatinine Clr Calc Pharmacy 52.5585; Glucose 104 mg/dL (65-115); Osmolality Calculated 286 mOsm/kg (285-295); Potassium 4.1 mmol/L (3.5-5.1); Sodium 135 mmol/L (136-145)
[2025-04-27 07:01] VITALS: RESP 17
[2025-04-27] MEDS: morphine 4 mg/mL SDV 1 mL IVP ×2 (07:01→10:15)
[2025-04-27 07:45] VITALS: BP 119/75; PULSE 70; RESP 17; TEMP 36.5; O2SAT 96
[2025-04-27] MEDS: HYDROmorphone 0.5 MG/0.5 ML INJ IVP ×2 (08:33→12:38)
[2025-04-27 10:15] VITALS: RESP 15
[2025-04-27] MEDS: D5-NS 0.45% + KCL 20 mEq 20 MEQ/1,000 ML BAG 75 MEQ IV (10:17)
[2025-04-27 11:30] VITALS: BP 134/79; PULSE 63; RESP 18; TEMP 36.4; O2SAT 96
--- NOTE | 2025-04-27 16:09 | P.PN_ITS ---
Subjective 2 Subjective: Seen this morning. Patient is awaiting to speak to hospice nurse today. Hospice referral was placed yesterday. He does not had a bowel movement so far. He is drinking the GoLytely. He states pain is not very controlled. Discussed placing him back on a fentanyl patch however he states that when last time he was given a fentanyl patch the dose was too high for him. Patient's son will be going home to check what dose it was in the past. Later on the son informed us that he was unable to find the previous patches from 5 years ago. I verified from patient's chart Dr. Edwrads had prescribed fentanyl 25 5 years ago. Otherwise patient states he definitely feels better than when he first came to the hospital. Vitals/I&O/Wt Last Vital Signs Temp 97.6 F 04/27/25 11:30 Pulse 63 04/27/25 11:30 Resp 18 04/27/25 11:30 BP 134/79 04/27/25 11:30 Pulse Ox 96 04/27/25 11:30 O2 Del Method Room Air 04/27/25 11:30 04/27/25 04/27/25 04/27/25 06:59 14:59 22:59 Intake Total 1893.75 / 1893.75 Balance 1893.75 / 1893.75 Weight last 48 hrs Weight 68.266 kg Weight 68.266 kg Weight 60.328 kg Physical Exam 2 Narrative: Thin frail weak appearing male laying in bed appears comfortable HEENT: Normocephalic atraumatic, EOMI no acute distress noted. 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 He will have an NG tube placed fluids started and pain control. Patient has a high pain tolerance due to his previous usage of opiate for metastatic rectal cancer. He reports morphine 5 mg ineffective but 10 works. Thus he was started on morphine 10 mg IV 3 hours as needed. I have also ordered Dilaudid 0.5 mg IV as needed breakthrough pain. I would consider fentanyl patch. I had a long talk with patient and his son. After seeing that the CAT scan was 1 month ago I talked with them how I did not believe it was medically indicated to repeat. All it will show me is either similar results or worsening cancer progression. That will not change our goals of care or current management. I explained to them what Trista HEART from oncology told me that there is no further chemotherapy agents to be used. The cancer is progressing at this time despite multiple different attempts at a few different chemotherapies. I did explain to the patient that I recommend comfort measures only and admission to hospice. He was reluctant and did not think he was ready yet. I explained the point of hospice is to be on the program so that when things get worse there is a program there to help him. He and his son were more open to this. Lastly during this discussion the patient did say he did not want resuscitation and thus I will change him to allow natural in our order set. Next he will have to be discharged with a PEG tube for decompression. Since he was admitted after business hours. I will leave to the next attending physician to arrange with surgery for a PEG tube for comfort measures. Advise hospice consult tomorrow if patient is open to discussion. I have left a message with Trista HEART from oncology to let her know the above plan and reasoning. 04/26/2025 Prognosis is definitely guarded and I believe hospice palliative care may be appropriate at this point however patient would like to pursue chemotherapy if possible. He would like to proceed with a CT abdomen for reevaluation. I discussed with him we will do the scan today and then discuss options with general surgery and oncology and go from there. He is agreeable at this time. He is agreeable to PEG tube if needed. We will clamp NG tube and check CT abdomen pelvis. Patient has not had any vomiting. I will start patient on GoLytely after reviewing CT abdomen pelvis. Continue n.p.o. 04/27/2025 There were no surgical options available to the patient at this time due to end- stage colon cancer Will continue GoLytely for symptomatic relief of constipation. Will continue patient on pain management Hospice referral placed. They would like to go with hospice [facility]. Appreciate recommendations from oncology. Hollie Yates nurse practitioner from oncology personally came and visited with the patient in the hospital and discussed care. Patient's son available at bedside today. Will continue Dilaudid every 4 hours as needed. Continue morphine every 3 hours however will increase dose to 8 mg. Previously he was on 10 mg every 3 hours. I have offered fentanyl patch to the patient however he does not want to try that yet. PDMP PDMP Reviewed: Not Reviewed Attestations 2 Medical Necessity Statement*: partial bowel obstruction. 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
[2025-04-27 16:48] VITALS: RESP 17
[2025-04-27] MEDS: morphine 4 mg/mL SDV 1 mL 8 MG IVP (16:48)
[2025-04-27] MEDS: enoxaparin 40 mg/0.4 mL Syringe SUBCUT (16:49)
[2025-04-27] MEDS: famotidine 20 mg/2 mL INJ IVP (16:50)
[2025-04-28 03:54] VITALS: RESP 18
[2025-04-28] MEDS: famotidine 20 mg/2 mL INJ IVP ×2 (03:54→16:52)
[2025-04-28] MEDS: morphine 4 mg/mL SDV 1 mL IVP ×3 (03:54→16:50)
[2025-04-28 04:00] VITALS: BP 135/88; PULSE 90; TEMP 36.7; O2SAT 96
[2025-04-28 04:18] LABS: Basophils % 0.2 %; Eosinophils % 0.2 %; Hematocrit 36.2 % (37-53); Lymphocytes # 0.7 10^3/uL (0.8-4.8); Lymphocytes % 5.3 %; Mean Corpuscular HGB Conc 31.2 g/dL (30-55); Mean Corpuscular Hemoglobin 26.5 pg (27-33); Mean Corpuscular Volume 84.8 fl (82-101); Mean Platelet Volume 9.3 fL (7.4-10.4); Monocytes # 1.3 10^3/uL (0.2-0.9); Monocytes % 10.3 %; Neutrophils % 82.1 %; Nucleated Red Blood Cells % 0 %; Platelet Count 254 10^3/cmm (157-399); Red Blood Count 4.27 10^6/uL (3.85-5.65); Red Cell Distribution Width 18.8 % (12.1-15.1); White Blood Count 12.79 10^3/uL (3.29-11.43)
[2025-04-28 04:35] LABS: Anion Gap 14.4 (5-19); Blood Urea Nitrogen 25 mg/dL (8-23); Calcium 8.6 mg/dL (8.5-10.5); Carbon Dioxide 25 mmol/L (22-29); Chloride 102 mmol/L (98-107); Glucose 116 mg/dL (65-115); Osmolality Calculated 289 mOsm/kg (285-295); Potassium 4.4 mmol/L (3.5-5.1); Sodium 137 mmol/L (136-145)
[2025-04-28 07:34] VITALS: RESP 16
[2025-04-28 07:41] VITALS: BP 145/90; PULSE 85; RESP 18; TEMP 36.7; O2SAT 97
[2025-04-28] MEDS: HYDROmorphone 0.5 MG/0.5 ML INJ IVP ×2 (10:40→17:52)
[2025-04-28 12:44] VITALS: BP 125/77; PULSE 84; RESP 17; TEMP 36.7; O2SAT 94
--- NOTE | 2025-04-28 13:37 | P.PN_ITS ---
Subjective 2 Subjective: had BM overnight seen this morning Vitals/I&O/Wt Last Vital Signs Temp 98.0 F 04/28/25 12:44 Pulse 84 04/28/25 12:44 Resp 17 04/28/25 12:44 BP 125/77 04/28/25 12:44 Pulse Ox 94 04/28/25 12:44 O2 Del Method Room Air 04/28/25 12:44 04/27/25 04/28/25 04/28/25 22:59 06:59 14:59 Intake Total 500 / 2393.75 240 / 240 Balance 500 / 2393.75 240 / 240 Weight last 48 hrs Weight 64.274 kg Weight 68.266 kg Weight 68.266 kg Physical Exam 2 Narrative: Thin frail weak appearing male laying in bed appears comfortable HEENT: Normocephalic atraumatic, EOMI no acute distress noted. 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 He will have an NG tube placed fluids started and pain control. Patient has a high pain tolerance due to his previous usage of opiate for metastatic rectal cancer. He reports morphine 5 mg ineffective but 10 works. Thus he was started on morphine 10 mg IV 3 hours as needed. I have also ordered Dilaudid 0.5 mg IV as needed breakthrough pain. I would consider fentanyl patch. I had a long talk with patient and his son. After seeing that the CAT scan was 1 month ago I talked with them how I did not believe it was medically indicated to repeat. All it will show me is either similar results or worsening cancer progression. That will not change our goals of care or current management. I explained to them what Trista HEART from oncology told me that there is no further chemotherapy agents to be used. The cancer is progressing at this time despite multiple different attempts at a few different chemotherapies. I did explain to the patient that I recommend comfort measures only and admission to hospice. He was reluctant and did not think he was ready yet. I explained the point of hospice is to be on the program so that when things get worse there is a program there to help him. He and his son were more open to this. Lastly during this discussion the patient did say he did not want resuscitation and thus I will change him to allow natural in our order set. Next he will have to be discharged with a PEG tube for decompression. Since he was admitted after business hours. I will leave to the next attending physician to arrange with surgery for a PEG tube for comfort measures. Advise hospice consult tomorrow if patient is open to discussion. I have left a message with Trista HEART from oncology to let her know the above plan and reasoning. 04/26/2025 Prognosis is definitely guarded and I believe hospice palliative care may be appropriate at this point however patient would like to pursue chemotherapy if possible. He would like to proceed with a CT abdomen for reevaluation. I discussed with him we will do the scan today and then discuss options with general surgery and oncology and go from there. He is agreeable at this time. He is agreeable to PEG tube if needed. We will clamp NG tube and check CT abdomen pelvis. Patient has not had any vomiting. I will start patient on GoLytely after reviewing CT abdomen pelvis. Continue n.p.o. 04/27/2025 There were no surgical options available to the patient at this time due to end- stage colon cancer Will continue GoLytely for symptomatic relief of constipation. Will continue patient on pain management Hospice referral placed. They would like to go with hospice [facility]. Appreciate recommendations from oncology. Hollie Yates nurse practitioner from oncology personally came and visited with the patient in the hospital and discussed care. Patient's son available at bedside today. Will continue Dilaudid every 4 hours as needed. Continue morphine every 3 hours however will increase dose to 8 mg. Previously he was on 10 mg every 3 hours. I have offered fentanyl patch to the patient however he does not want to try that yet. 04/28/2025 seen this am continue go lytely had 1 bm overnight stop dilaudid switch to home hydrocodone dosing add fentanyl patch 7.5 may use morphine 2-4 mg in between q4 hours as needed awaiting hospice referral visit in am PDMP PDMP Reviewed: Not Reviewed Attestations 2 Medical Necessity Statement*: partial bowel obstruction. 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
[2025-04-28] MEDS: HYDROcodone-acetaminophen 10-325 mg Tablet 1 TAB PO (14:24)
[2025-04-28] MEDS: fentaNYL 12 mcg Patch 1 PATCH TRANSDERMA (14:25)
[2025-04-28 16:50] VITALS: RESP 18
[2025-04-28] MEDS: enoxaparin 40 mg/0.4 mL Syringe SUBCUT (16:52)
[2025-04-29 05:03] LABS: Basophils % 0.2 %; Eosinophils % 0.2 %; Hematocrit 36.1 % (37-53); Lymphocytes # 0.7 10^3/uL (0.8-4.8); Lymphocytes % 4.7 %; Mean Corpuscular Hemoglobin 25.8 pg (27-33); Mean Corpuscular Volume 83.2 fl (82-101); Mean Platelet Volume 9.3 fL (7.4-10.4); Monocytes # 1.4 10^3/uL (0.2-0.9); Monocytes % 9.2 %; Neutrophils # 12.68 10^3/uL (1.8-7.7); Neutrophils % 84.8 %; Nucleated Red Blood Cells % 0 %; Platelet Count 259 10^3/cmm (157-399); Red Blood Count 4.34 10^6/uL (3.85-5.65); Red Cell Distribution Width 18.6 % (12.1-15.1); White Blood Count 14.97 10^3/uL (3.29-11.43)
[2025-04-29 05:15] LABS: Blood Urea Nitrogen 23 mg/dL (8-23); Calcium 8.5 mg/dL (8.5-10.5); Carbon Dioxide 23 mmol/L (22-29); Chloride 102 mmol/L (98-107); Creatinine Clr Calc Pharmacy 67.9359; Glucose 111 mg/dL (65-115); Magnesium 1.9 mg/dL (1.7-2.3); Osmolality Calculated 290 mOsm/kg (285-295); Sodium 138 mmol/L (136-145)
[2025-04-29 05:40] LABS: Anion Gap 17.3 (5-19); Potassium 4.3 mmol/L (3.5-5.1)
[2025-04-29] MEDS: HYDROmorphone 0.5 MG/0.5 ML INJ IVP ×2 (10:04→13:56)
--- NOTE | 2025-04-29 12:07 | P.DS_ITS ---
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 He was seen by general surgery and oncology during inpatient stay who both recommended hospice. Patient and family opted for hospice and he was discharged home with hospice. Please see progress notes for further details. Physical Exam Narrative: Thin frail weak appearing male laying in bed appears comfortable HEENT: Normocephalic atraumatic, EOMI no acute distress noted. Heart regular rate rhythm normal S1-S2, no gross murmurs Lungs mildly diminished breath sounds but clear to auscultation anteriorly and posteriorly Abdomen non tender in b/l Lower quadrants today, improved exam Extremities for present no clubbing cyanosis or edema Discharge Data Studies Completed and Pending Completed Studies During Hospitalization Category Date Time Status CT abdomen pelvis w con* [id number] Stat Cat Scan 04/26/25 11:36 Completed XR chest 1V portable [id number] Routine Exams 04/25/25 17:50 Completed Radiology Impressions Chest X-Ray 04/25/25 17:50 IMPRESSION: The NG tube is positioned in the proximal stomach with its side-hole at the GE junction. Consider advancing 4 cm for more optimal positioning. Abdomen/Pelvis CT 04/26/25 11:36 IMPRESSION: 1. New moderate left hydroureteronephrosis, uncertain etiology. 2. Possible tiny enhancing bladder mass measuring up to 8 mm at the UVJ on series . This could represent an inflamed ureteral orifice, possibly from recent stone passage versus neoplasm and is likely the etiology for obstruction. Urology consultation is recommended. 3. Increased [id number] ascites. 4. New 3 mm left lower lobe pulmonary nodule medially and stable additional small left lower lobe pulmonary nodules, suspicious for metastatic disease. 5. Increased size of large heterogeneous hepatic masses consistent with metastatic disease. Largest is in the dome of the liver and measures proximally 8.1 x 6.4 cm, previously 6.9 x 6.1 cm. 6. Mild nonspecific gallbladder wall thickening. 7. Mild splenomegaly. 8. Multiple small bilateral nonobstructing renal calculi measuring up to approximately 3 mm. 9. Circumferential wall thickening in the rectum suspicious for malignancy. 10. Stable small right pleural effusion. 11. Interval placement of esophagogastric tube with the tip in the proximal stomach. Proximal side port is above the esophagogastric junction. Laboratory Results WBC 14.97 10^3/uL (3.29-11.43) H 04/29/25 04:26 RBC 4.34 10^6/uL (3.85-5.65) 04/29/25 04:26 Hgb 11.20 g/dL (11.27-16.99) L 04/29/25 04:26 Hct 36.1 % (37-53) L 04/29/25 04:26 MCV 83.2 fl (82-101) 04/29/25 04:26 MCH 25.8 pg (27-33) L 04/29/25 04:26 MCHC 31.0 g/dL (30-55) 04/29/25 04:26 RDW 18.6 % (12.1-15.1) H 04/29/25 04:26 Plt Count 259 10^3/cmm (157-399) 04/29/25 04:26 MPV 9.3 fL (7.4-10.4) 04/29/25 04:26 Neut % (Auto) 84.8 % 04/29/25 04:26 Lymph % (Auto) 4.7 % 04/29/25 04:26 [place] % (Auto) 9.2 % 04/29/25 04:26 Eos % (Auto) 0.2 % 04/29/25 04:26 Baso % (Auto) 0.2 % 04/29/25 04:26 Neut # (Auto) 12.68 10^3/uL (1.8-7.7) H 04/29/25 04:26 Lymph # (Auto) 0.7 10^3/uL (0.8-4.8) L 04/29/25 04:26 [place] # (Auto) 1.4 10^3/uL (0.2-0.9) H 04/29/25 04:26 Eos # (Auto) 0.0 10^3/uL (0.0-0.8) 04/29/25 04:26 Baso # (Auto) 0.0 10^3/uL (0.0-0.1) 04/29/25 04:26 Nucleated RBC % (auto) 0 % 04/29/25 04:26 Nucleated RBCs # 0.0 /100WBC 04/29/25 04:26 Sodium 138 mmol/L (136-145) 04/29/25 04:26 Potassium 4.3 mmol/L (3.5-5.1) 04/29/25 04:26 Chloride 102 mmol/L (98-107) 04/29/25 04:26 Carbon Dioxide 23 mmol/L (22-29) 04/29/25 04:26 Anion Gap 17.3 (5-19) 04/29/25 04:26 BUN 23 mg/dL (8-23) 04/29/25 04:26 Creatinine 1.0 mg/dL (0.7-1.2) 04/29/25 04:26 GFR Calculation Not Reportable 04/29/25 04:26 Glucose 111 mg/dL (65-115) 04/29/25 04:26 Calculated Osmolality 290 mOsm/kg (285-295) 04/29/25 04:26 Calcium 8.5 mg/dL (8.5-10.5) 04/29/25 04:26 Magnesium 1.9 mg/dL (1.7-2.3) 04/29/25 04:26 Vitals Last Vital Signs Temp 98.0 F 04/28/25 12:44 Pulse 84 04/28/25 12:44 Resp 18 04/28/25 16:50 BP 125/77 04/28/25 12:44 Pulse Ox 94 04/28/25 12:44 O2 Del Method Room Air 04/28/25 12:44 Discharge Plan Discharge Patient Disposition: Hospice - Home Condition: Stable Prescriptions: Continued trazodone 50 mg tablet 50 mg PO DAILY Qty: 30 6RF Rx Instructions: Take 15-30 minutes prior bedtime ondansetron HCl 4 mg tablet 4 mg PO Q6H PRN (Reason: nausea and vomiting) Qty: 30 3RF prochlorperazine maleate [Compazine] 10 mg tablet 10 mg PO Q4H PRN (Reason: mild nausea) Qty: 30 3RF hydrocodone-acetaminophen 10-325 mg tablet 1 tab PO Q4H PRN (Reason: pain) 30 Days Qty: 180 0RF morphine concentrate 100 mg/5 mL (20 mg/mL) solution 20 mg sublingual DIRECTED PRN (Reason: Pain/SOB) 14 Days Qty: 30 0RF Rx Instructions: 0.25ml-1ml q1H PRN may increase to 0.5ml-1ml Q1H PRN bisacodyl 10 mg suppository 10 mg ID DAILY PRN (Reason: constipation) Qty: 5 0RF Rx Instructions: 1 suppository per rectum every day PRN for constipation. diphenhydramine HCl 25 mg tablet 25 mg PO Q4H Qty: 5 0RF Rx Instructions: Take one tablet by mouth every 4 hours as needed for allergic reaction including: Rash and/or Itching hydroxyzine HCl 25 mg tablet 25 mg PO TID PRN (Reason: Itching) Qty: 5 0RF Rx Instructions: Take 1 table by mouth as needed three times a day for itching atropine 1 % drops 4 drp sublingual Q4H PRN (Reason: secretions) Qty: 5 0RF Rx Instructions: 4 drops SL q 4 hours PRN for terminal congestion/excessive secretions. ondansetron 4 mg tablet,disintegrating 4 mg translingual Q4H PRN (Reason: nausea) Qty: 5 0RF Rx Instructions: Dissolve 1 tablet under tongue every 4 hours PRN for nausea lorazepam 2 mg/mL concentrate 2 mg sublingual Q4H PRN (Reason: Anxiety/Seizure) Qty: 30 0RF Rx Instructions: 0.25ml-1ml q4H PRN Anxiety/Seizure Start 0.25ml may increase to 0.5ml-1ml q4H omeprazole 20 mg capsule,delayed release(DR/EC) 20 mg PO DAILY Discontinued diphenoxylate-atropine [Lomotil] 2.5-0.025 mg tablet 2 tab PO QID MDD 8 tab PRN (Reason: diarrhea) Qty: 60 3RF Discharge Orders: Discharge Order (Routine); Ordered 04/29/25 Ordered By: Gracy Recinos Referrals: [facility] (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
--- NOTE | 2025-04-29 13:35 | PC.SOCIAL ---
IMM Updated Updated pt & family on IMM. No questions voiced. Provided pt a copy. Initialed, dated, & timed a copy & placed in chart.
--- NOTE | 2025-04-29 14:43 | PC.NURSE ---
pts port access has been removed.
== END 2025-04-29 15:10 | disposition hospice, home (50) | DRG 389 ==
PROVIDERS: Admitting Provider Internal Medicine; PCP Family Medicine; Visit Provider Internal Medicine
DX: K56.7 Ileus, unspecified (principal); C20 Malignant neoplasm of rectum; C78.00 Secondary malignant neoplasm of unspecified lung; C78.7 Secondary malignant neoplasm of liver and intrahepatic bile duct; K56.600 Partial intestinal obstruction, unspecified as to cause; K21.9 Gastro-esophageal reflux disease without esophagitis; Z66 Do not resuscitate; Z87.891 Personal history of nicotine dependence
CPT/HCPCS: 36415; 36591; 71045; 74177; 80048; 83735; 85025; 96372; J1171; J1650; J2270; J3490; J9999